=== PATIENT | male | born 1950 | race Caucasian/White ===

== ENCOUNTER 2017-06-06 11:31 | Emergency (ER) | payer MEDICARE ==
[~2017-06-06] VITALS: Ht 172.7 cm; Wt 106.1 kg
[2017-06-06] MEDS ORDERED: AMBIEN10 MG PO (11:48)
[2017-06-06] MEDS ORDERED: CYCLOBENZAPRINE5 MG PO (11:49)
[2017-06-06] MEDS ORDERED: PROPANOLOL PO (11:51)
[2017-06-06] MEDS ORDERED: ALTOPREV40 MG PO (11:52)
[2017-06-06] MEDS ORDERED: NORVASC5 MG PO (11:52)
[2017-06-06] MEDS ORDERED: ATIVAN1 MG PO (11:53)
[2017-06-06] MEDS ORDERED: PRILOSEC OTC20 MG PO (11:53)
[2017-06-06] MEDS ORDERED: MICARDIS HCT 41 EACH (11:53)
[2017-06-06] MEDS ORDERED: GABAPENTIN300 MG PO (11:54)
[2017-06-06] MEDS ORDERED: ACIDOPHILUS1 EACH PO (11:54)
[2017-06-06] MEDS ORDERED: ESTER-C 1,0001 EACH PO (11:54)
[2017-06-06] MEDS ORDERED: SUDAFED 12 HOU120 MG PO (11:55)
[2017-06-06] MEDS ORDERED: FISH OIL 1,0001 EAC2 NG (11:55)
[2017-06-06] MEDS ORDERED: ASPIRIN81 MG PO (11:56)
[2017-06-06] MEDS ORDERED: MULTIVITAMINS1 EAC7 PO (11:56)
[2017-06-06] MEDS ORDERED: [UNRECOGNIZED DRUG - OTHER] (11:57)
--- NOTE | 2017-06-06 18:30 | EKG ---
[facility] [address] [facility] [place] [address] Signed Normal sinus rhythm Normal ECG No previous ECGs available Confirmed by KARLA SPRINGER MD ([id number]) on 06/06/2017 6:30:35 PM Electronically Signed By: KARLA SPRINGER MD 06/06/17 1830 PATIENT NAME: DELORES IVERSON Electrocardiogram DATE OF : 52 PHYSICIAN: KRALA SPRINGER MD REPORT #: [id number] REPORT IS CONFIDENTIAL AND NOT TO BE RELEASED WITHOUT AUTHORIZATION
== END 2017-06-06 13:31 | disposition home or self-care (01) ==
LOC: ED 11:31
DX: B34.9 Viral infection, unspecified (principal); I10 Essential (primary) hypertension; Z87.891 Personal history of nicotine dependence; Z90.49 Acquired absence of other specified parts of digestive tract; Z88.0 Allergy status to penicillin; Z88.5 Allergy status to narcotic agent; Z79.899 Other long term (current) drug therapy; Z88.2 Allergy status to sulfonamides; Z79.891 Long term (current) use of opiate analgesic
CPT/HCPCS: 71020; 80053; 81001; 85025; 93005; 93010; 99283

== ENCOUNTER 2017-10-21 08:47 | Inpatient (IN) | payer MEDICARE ==
[~2017-10-21] VITALS: Ht 172.7 cm; Wt 96.7 kg
[~2017-10-21 08:47] MED LIST: ACIDOPHILUS1 EACH PO; ALTOPREV40 MG PO; AMBIEN10 MG PO; ASPIRIN81 MG PO; ATIVAN1 MG PO; CYCLOBENZAPRINE5 MG PO; ESTER-C 1,0001 EACH PO; FISH OIL 1,0001 EAC2 NG; GABAPENTIN300 MG PO; MICARDIS HCT 41 EACH; MULTIVITAMINS1 EAC7 PO; NORVASC5 MG PO; PRILOSEC OTC20 MG PO; PROPANOLOL PO; SUDAFED 12 HOU120 MG PO; [UNRECOGNIZED DRUG - OTHER]
--- NOTE | 2017-10-21 14:32 | NUR ---
PT ADMITTED FROM ED WITH GI BLEED UPPER. FAMILY AT BEDSIDE, ALL QUESTIONS ANSWERED AT THIS TIME. PT IS NPO AT THIS TIME. UNIT 1 OF 2 RUNNING AT THIS TIME,
--- NOTE | 2017-10-21 14:47 | NUR ---
PROTONIX DRIP STARTED AT THIS TIME. PT IN BED RESTING COMFORTABLE AT THIS TIME. LOTS OF FAMILY PRESENT AT THIS TIME, DR LEON IN THE UNIT AT THIS TIME TO SEE THE PATIENT.
--- NOTE | 2017-10-21 15:37 | NUR ---
PT C/O PAIN IN HIS NECK AND THE TIP OF HIS PENIS, MEDICATED WITH 25MCG FENTAYNL AT THIS TIME.
--- NOTE | 2017-10-21 15:48 | NUR ---
MARJORIE MOLINA TALKING WITH PT AND FAMILY AT THIS TIME. UNIT OF PRBC #2 INFUSING WELL. LR WITH STRAIGHT TUBING RUNNING AT THIS TIME, THE BLOOD WILL CONTIOUE TO RUN WHILE IN THE OR. OR STAFF AREA OF ALL INFUSING FULIDS AT THIS TIME.
--- NOTE | 2017-10-21 15:55 | NUR ---
pt to the or at this time. pt was able to stand and transfer himself to the streacher. complete line change done also at this time/
--- NOTE | 2017-10-21 16:31 | NUR ---
10/21/17 1631 Darlyn Dumont 1616 - PT ARRIVED TO PACU. MAINTAINING OWN AIRWAY
--- NOTE | 2017-10-21 17:15 | NUR ---
PT CONTIOUED TO C/O THE MAR CATHETER, NEW ORDER RECEIVED TO DC'D CATHETER AT THIS TIME. PT SABRA THIS WELL AND THEN UP TO THE BEDSIDE TO TRY TO VOID AT THIS TIME ALSO, SCANT AMOUNT NOTED AT THIS TIME.
--- NOTE | 2017-10-21 17:45 | NUR ---
PT IS RESTING COMFORTABLE IN BED AT THIS TIME, HE IS LESS RESTLESS NOW THAT THE CATHETER HAS BEEN REMOVED.
--- NOTE | 2017-10-21 18:13 | NUR ---
PT HAS VOIDED AT THIS TIME, 100MLS OF YELLOW IN COLOR URINE.
--- NOTE | 2017-10-21 18:41 | NUR ---
PLATLETS STARTED AT THIS TIME. PT TRYING TO SLEEP AWAKENS WHEN STAFF TAKE TEMP.
--- NOTE | 2017-10-21 18:56 | NUR ---
PLATLETTS COMPLETED AT THIS TIME. PT IS TRYING TO REST. AT BEDSIDE.
--- NOTE | 2017-10-21 19:12 | NUR ---
PT REMAINS NPO WITH ICE CHIPS AND OR HARD CANDY/GUM. PT IS DOING WELL WITH SITTING AT THE SIDE OF THE BED TO VOID. HE DOES C/O BURING WITH VOIDING. URINE DOES APPEAR TO BE YELLOW IN COLOR. REPORT GIVEN TO GLUE SPECIALTY SUPERVISOR ALL QUESTIONS ANSWERED AT THIS TIME. REMAINS AT THE BEDSIDE.
--- NOTE | 2017-10-21 20:57 | NUR ---
IN TO ASSESS PT AT 1930. PT ASLEEP. AT BEDSIDE. AWOKE APPROXIMATELY 30-45MIN LATER. PT VOIDED 175ML TO URINAL, CONCENTRATED. DENIES DIZZINESS. REPORTS NAUSEA. 4MG ZOFRAN GIVEN IV. PAIN IN UPPER QUADRANTS OF ABD, SHARP. PT NOT WEARING CPAP AT THIS TIME D/T NAUSEA. 1MG ATIVAN GIVEN PER PT REQUEST FOR SLEEP. NO FURTHER NEEDS. REMAINS ON MONITOR.
--- NOTE | 2017-10-21 22:08 | NUR ---
ASSISTED PT TO SIT AT BEDSIDE TO VOID. PT VERY WEAK. HR UP TO 126 WHEN SITTING. INSTRUCTED PT TO CALL FOR ALL ASSISTANCE. VERBALIZED UNDERSTANDING.
--- NOTE | 2017-10-22 01:54 | NUR ---
PT INC SMALL LIQUID BLACK STOOL IN BED. UP TO BSC TO HAVE 500ML BLACK LIQUID STOOL. DENIES DIZZINESS, SOB, PAIN. BP TAKEN. LINENS CHANGED.
--- NOTE | 2017-10-22 06:06 | NUR ---
PT UP TO BSC TO HAVE LIQUID THICK BLACK STOOL - 200ML. PT VERY WEAK AND SOB WITH EXERTION. HR UP TO 120'S WITH MOVEMENT. VOIDED 250ML CONCENTRATED URINE. BACK TO BED WITH 1 PERSON ASSIST. HR 90'S WHEN AT REST. NO NEEDS.
--- NOTE | 2017-10-22 06:25 | OR ---
[facility] [address] [place], [place] [address] Signed DATE OF OPERATION: 10/21/2017 SURGEON: Beth Leon MD PREOPERATIVE DIAGNOSES: 1. Cardiac/gastric mass. 2. Melena. 3. Weight loss. 4. Anemia. 5. Distal esophageal dysphagia. 6. History of hiatal hernia. 7. Fatigue and weakness. POSTOPERATIVE DIAGNOSIS: Cardiac mass with clotted and congealed blood. PROCEDURE: EGD and CLOtest with biopsies of the cardiac mass/GE junction. ESTIMATED BLOOD LOSS: None. INDICATIONS: Jacob is a 67-year-old gentleman, who said he has had acid reflux claiming back in his 20s. He has been taking Prilosec since he was in his 20s. The last 5-1/2 to 6 months, he has had increasing distal esophageal dysphagia particularly to solid foods. Often, he has to regurgitate those foods. He has lost about 35-40 pounds and has been feeling progressively more weak and fatigued. Today, he was having trouble just walking through the house, so his family brought him to the emergency room for evaluation. In the emergency room, he really does not have any pain or a palpable mass in the upper abdomen and his hemoglobin started at 11. With hydration, it quickly went to 9.2. Consequently, he is on his second unit of blood per our Internal Medicine service. Initially, his lactic acid was high at 3.9, it is down to 1.4 and his urine specific gravity was high at 1.052. However, his BNP was normal at 7. Liver function tests were all fine. Albumin is good at 3.9. His BUN is up a little bit of 40 and creatinine is 1.13. He did receive a CT scan of the chest, abdomen, and pelvis and sure enough, he does have a mass at the cardia, probably 2.8 x 3 cm. Also, has a 1.2 cm gastrohepatic lymph node. Given those findings, he had been admitted to the ICU to our Internal Medicine service. I have been asked to see him as a general surgeon cardiac catheterization technician for upper endoscopy. I met with Jacob and his family and we reviewed the above findings. I discussed with him an upper endoscopy along with its risks including but not limited to gas bloating, crampy abdominal pain, bleeding, perforation requiring surgery, and missed diagnosis. We also discussed the need for IV conscious sedation. Given his current situation, his sleep apnea, his very heavy full thick neck, we asked that an anesthesia provider help us with increased monitoring sedation with propofol. He had expressed understanding and wished to proceed. Electronically Signed By: BETH LEON MD 10/22/17 0625 PATIENT NAME: JACOB IVERSON OPERATIVE REPORT DATE OF : 52 PHYSICIAN: BETH LEON MD REPORT #: [id number] REPORT IS CONFIDENTIAL AND NOT TO BE RELEASED WITHOUT AUTHORIZATION [address] [address] Signed PROCEDURE NOTE: Jacob was taken down to our endoscopy suite and placed in the supine semi-recumbent position. He was given IV sedation with propofol per our nurse loss prevention guard. A bite block was utilized for the case. The adult gastroscope was introduced and advanced under direct visualization of camera down his esophagus. We could see the nodular mucosa at the GE junction, and it took just a minute and a slight bit of pressure to get the gastroscope through the area suggesting it is strictured. This opened up into the stomach quite nicely. Of course, there was some old blood in the stomach. We went out into the duodenum without difficulty. The duodenum and pyloric channel were unremarkable. The antrum was unremarkable. We went and took a single biopsy for CLOtest. Upon retroflexion of scope, we could see a large congealed clotted mass of blood at the cardia. It was obscuring the area of the mass in the cardia. We spent some time trying to irrigate and suction that out with no success. The scope was withdrawn up gently through the area of the GE junction. Once we got above the congealed blood and I could see, we took a couple of biopsies of that nodular area quite concerning for cancer. Above that, the esophagus, the middle and the upper esophagus were unremarkable. After this, the gas was suctioned out and the gastroscope removed. Jacob tolerated the procedure quite well. RECOMMENDATIONS: Jacob will be returned to the ICU with respect to the above and I will talk with his family and the hospitalist. Beth Leon MD ALB/MODL /[id number] cc: Jose Leiva DO Electronically Signed By: BETH LEON MD 10/22/17 0625 PATIENT NAME: JACOB IVERSON OPERATIVE REPORT DATE OF : 52 PHYSICIAN: BETH LEON MD REPORT #: [id number] REPORT IS CONFIDENTIAL AND NOT TO BE RELEASED WITHOUT AUTHORIZATION [facility] [address] [place], [place] [address] Signed Beth Leon MD Electronically Signed By: BETH LEON MD 10/22/17 0625 PATIENT NAME: JACOB IVERSON REX OPERATIVE REPORT DATE OF : 52 PHYSICIAN: BETH LEON MD REPORT #: [id number] REPORT IS CONFIDENTIAL AND NOT TO BE RELEASED WITHOUT AUTHORIZATION
--- NOTE | 2017-10-22 06:25 | CONS ---
[facility] [address] [place], [place] [address] Signed DATE OF CONSULTATION: 10/21/2017 CHIEF COMPLAINT: Distal esophageal dysphagia. HISTORY OF PRESENT ILLNESS: Jacob is a 67-year-old gentleman who started taking Prilosec in his 20s for acid reflux. The last 5-1/2 to 6 months, he has had increasing distal esophageal dysphagia, particularly solid foods. He has to regurgitate a lot of that food. He has been feeling progressively weaker and more lightheaded. He was having trouble getting through the house today, so his family brought him to our local emergency room. In the emergency room, he was a little hypotensive and tachycardic with a lactic acid at 3.9, his initial hemoglobin was 11.0. He was given IV fluids, and it has drifted down to 9.2, consequently he has been receiving a couple of units of blood from our internal medicine service. Also, his urine specific gravity was high at 1.052, although his BNP was fine at 7. He, therefore, underwent a CT scan of his chest, abdomen, and pelvis. There was no evidence of any pulmonary emboli. He has mild COPD, but he quit smoking years ago. He does have a small hiatal hernia and that he has got a mass at the cardia of the stomach and in the supra celiac area around 2.8 x 3.0 cm. There was also 1.2 cm gastrohepatic lymph node. Given those findings, he was admitted to our internal medicine service. I have been asked to see him as a general surgeon on-call for consideration of upper endoscopy. PAST MEDICAL HISTORY: Small hiatal hernia, mild COPD, diverticulosis, benign bilateral renal cysts, BPH, hard of hearing, hypertension, and hypercholesterolemia. PAST SURGICAL HISTORY: Open cholecystectomy, open appendectomy, various hernias including a periumbilical incisional hernia with mesh, and tonsils. SOCIAL HISTORY: Quit smoking. He does not drink. 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 He is to [place] at [phone]. Dr. Jose Leiva is his primary care provider. They prefer to [facility]. FAMILY HISTORY: Not reviewed today. REVIEW OF SYSTEMS: Reviewed 10 systems with Jacob and really nothing new to add. ALLERGIES: Penicillin, codeine, and primidone. MEDICATIONS: 1. Zolpidem. 2. Flexeril. 3. Propranolol. 4. Norvasc. 5. Lovastatin. 6. Ativan. Electronically Signed By: BETH LEON MD 10/22/17 0625 PATIENT NAME: JACOB IVERSON CONSULTATION DATE OF : 52 PHYSICIAN: BETH LEON MD REPORT #: [id number] REPORT IS CONFIDENTIAL AND NOT TO BE RELEASED WITHOUT AUTHORIZATION [facility] [address] [place] [id number] Signed 7. Micardis. 8. Hydrochlorothiazide. 9. Prilosec. 10. Vitamin C. 11. Gabapentin. 12. Sudafed. 13. Fish oil. 14. Multivitamin. 15. Aspirin. 16. Armstrong. PHYSICAL EXAMINATION: VITAL SIGNS: Blood pressure is 121/83, heart rate 107, respiratory rate 10, temperature is 98.3, and is 100% on 2 L. He is 5 feet and 8 inches and 96 kg. GENERAL: Jacob is a 67-year-old gentleman lying supine in his ICU bed. His family is at the bedside. He is alert, awake, and interactive. He is actually a pretty good historian. He told me he is down from about 30 pounds in the last few months. He is a little pale, but he is not diaphoretic at this point LUNGS: Clear to auscultation. HEART: A little tachycardic. ABDOMEN: Soft and flat. I really cannot appreciate any pain or mass in the epigastric area. LABORATORY DATA: His white blood cell count is 11.3, his hemoglobin was 11, it is down to 9.2, neutrophils are 70. His BUN is 40 and creatinine is 1.13. Lactic acid was 3.9, it is down to 1.4. His urine specific gravity was high at 1.052. Liver function tests are negative. His BNP was 7. Albumin is 3.9. RADIOGRAPHIC STUDIES: CT scan of the chest, abdomen, and pelvis is reviewed, the images in the written report. He does have some mild COPD, a small hiatal hernia, and there was a supraceliac mass coming from the cardia about 2.8 x 3 cm and there is a 1.2 cm gastrohepatic lymph node. ASSESSMENT AND PLAN: Jacob is a 67-year-old gentleman who appears to have a mass in the cardiac care of the stomach. He also was anemic and he is describing some melena as well. All consistent with his upper gastrointestinal bleed. I explained all these findings to Jacob and his family. He is undergoing resuscitation, now our crew is here, we are going to take him down to our endoscopy suite for an upper endoscopy and hopefully some biopsies and pictures. I have explained upper endoscopy to him. He understands there is risk including, but not limited to gas bloating, crampy abdominal pain, bleeding, perforation requiring surgery, and missed diagnosis, he expressed understanding and wishes to Electronically Signed By: BETH LEON MD 10/22/17 0625 PATIENT NAME: JACOB IVERSON CONSULTATION DATE OF : 52 PHYSICIAN: BETH LEON MD REPORT #: [id number] REPORT IS CONFIDENTIAL AND NOT TO BE RELEASED WITHOUT AUTHORIZATION [address] [address] Signed proceed. MD BURAK Ge/TONYL /[id number] cc: MD Jose Ge DO Electronically Signed By: BETH LEON MD 10/22/17 0625 PATIENT NAME: JACOB IVERSON CONSULTATION DATE OF : 52 PHYSICIAN: BETH LEON MD REPORT #: [id number] REPORT IS CONFIDENTIAL AND NOT TO BE RELEASED WITHOUT AUTHORIZATION
--- NOTE | 2017-10-22 09:35 | NUR ---
PT GIVEN SO LIQUIDS TO DRINK THIS AM. PT IS ABLE TO TAKE SMALL SIPS AT A TIME WITH NO NAUSEA NOTED. PT IS ALSO ABLE TO REST INBETWEEN VISITORS THIS AM.
--- NOTE | 2017-10-22 10:11 | NUR ---
PT SLEEPING AT THIS TIME, PT ABLE TO SLEEP THROUGH STAFF BEING IN THE ROOM AND CHANGING IV FLUIDS, EMPTING URINALS. PT URINE APPERS TO BE CONTRANTED AT THIS TIME.
--- NOTE | 2017-10-22 11:00 | NUR ---
PT TURNED TO HIS RIGHT SIDE. PT HELD INPLACE VIA WEDGE THAT HIS FAMILY SUPPLIES.
--- NOTE | 2017-10-22 11:45 | NUR ---
PT GIVEN BATH AND LINE CHANGE THIS AM. PT SABRA-WELL CLEAN PULL-UP PLACED. PT DENIES BURNING OR PAIN WITH VOIDING TODAY. DR SPRINGER INTO SEE PT THIS AM NEW ORDERS RECEIVED AT THIS TIME.
--- NOTE | 2017-10-22 13:31 | NUR ---
PT RESTING, DIDNOT WANT TO DISTURB. VISITED WITH HIS AND DAUGHTER. THEY BOTH ARE TRYING TO KEEP THEIR EMOTIONS IN CHECK, AND NOT LOOK TOO FAR DOWN THE ROAD. PRAYED WITH THEM. WILL CONTINUE TO FOLLOW NEEDED
--- NOTE | 2017-10-22 13:31 | NUR ---
PT REMAINS IN BED AND WATCHING TV, DENIES ANY C/O'S AT THIS TIME. CURRENTLY DRINKING ENSURE. PTS REMAINS AT THE BEDSIDE.
--- NOTE | 2017-10-22 14:38 | NUR ---
PT DRANK ALMOST ALL OF THE ENSURE AT THIS TIME. APEARS THAT HE IS TRYING TO SLEEP, COVERS OVER HIS HEAD. REMAINS AT BEDSIDE.
--- NOTE | 2017-10-22 14:59 | NUR ---
PT LAYING ON SIDE, WITH HIS QUILT ON HIM. HIS JOHN BY HIS SIDE. PT RESPONDED TO MY PRESENCE, SHOOK MY HAND AND SAID HE WAS HAVING A GREAT TIME! STILL HAS HIS SENSE OF HUMOR. PRAYED WITH PT, WILL CONTINUE TO FOLLOW
--- NOTE | 2017-10-22 16:06 | NUR ---
REPORTED OFF TO MJ BILLY ATT HIS TIME ALL QUESTIONS ANSWERED.
--- NOTE | 2017-10-22 16:48 | NUR ---
Patient resting in bed with eyes closed, lights turned down. Placed do not disturb sign on door.
--- NOTE | 2017-10-22 17:34 | NUR ---
Patient stands at bedside, voids 150 mls to urinal. Patient tolerates well, stands without difficulty and denies dizziness. Patient back to bed, call light in reach. at bedside.
--- NOTE | 2017-10-22 18:35 | NUR ---
ZOFRAN 4 MG IV GIVEN FOR NAUSEA.
--- NOTE | 2017-10-22 22:33 | EKG ---
[facility] [address] [place] [address] Signed Sinus tachycardia Left bundle branch block Abnormal ECG When compared with ECG of 06-JUN-2017 11:49, Vent. rate has increased BY 40 BPM Left bundle branch block is now present Confirmed by KARLA SPRINGER MD ([id number]) on 10/22/2017 10:33:14 PM Electronically Signed By: KARLA SPRINGER MD 10/22/17 2233 PATIENT NAME: DELORES IVERSON REX Electrocardiogram DATE OF : 52 PHYSICIAN: KARLA SPRINGER MD REPORT #: [id number] REPORT IS CONFIDENTIAL AND NOT TO BE RELEASED WITHOUT AUTHORIZATION
--- NOTE | 2017-10-23 01:12 | NUR ---
PT CALLED ME IN TO ROOM TO EXPRESS 'I JUST DON'T FEEL WELL'. PT UNABLE TO DESCRIBE THE FEELING OTHER THAN, NOT FEELING WELL OVER HIS ENTIRE BODY. VS TAKEN, PT REPORTED MILD NAUSEA, 4MG ZOFRAN GIVEN IV. ABD PAIN IN UPPER QUADRANTS 3/10 'TENDER'. DR SPRINGER CALLED TO UPDATE. PT GIVEN 500MG TYLENOL PO.
--- NOTE | 2017-10-23 03:27 | NUR ---
PT REPORTS FEELING 'A BIT' BETTER, WAS ABLE TO FALL ASLEEP. UP TO STAND AT BEDSIDE TO VOID TO URINAL.
--- NOTE | 2017-10-23 10:15 | NUR ---
PT AWAKE THIS A.M. AND VOIDED 500 MLS CLEAR YELLOW URINE WHILE STANDING AT BEDSIDE. PT ATE APPROX 50% OF CLEAR LIQ DIET, FAMILY IN ROOM. PT C/O OF SLIGHT DISCOMFORT IN EPIGASTRIC AREA. DR. SPRINGER AWARE AND ORDER FOR GI COCKTAIL ORDERED.
--- NOTE | 2017-10-23 11:56 | NUR ---
DR. SPRINGER IN TO ASSESS PT AND TALK TO PT AND FAMILY CONCERNING PLAN OF CARE.
--- NOTE | 2017-10-23 14:42 | NUR ---
PT FEELING BETTER, DAUGHTER TOLD ME THEY ARE WAITING FOR THE LAB REPORT CONFIRMING WHAT THEY EXPECT-CANCER AND WHAT KIND. LOTS OF FAMILY BY, HAD PRAYER WITH FAMILY, KEEPING CLOSE WATCH. WILL CONTINUE TO FOLLOW
--- NOTE | 2017-10-23 14:43 | NUR ---
PT TRANSFERED FROM CCU TO ROOM 113 VIA RECLINER CHAIR. PT ON RA, DENIED PAIN, DENIED NAUSEA. HAS D5LR INFUSING AT 75 ML/HR. PER DR. SPRINGER, SALINE LOCK AFTER CURRENT BAG OF FLUIDS.
--- NOTE | 2017-10-23 15:04 | NUR ---
PT TRANSFERRED TO ROOM 113 VIA VANI CHAIR WITH FAMILY MEMBERS AT HIS SIDE.
--- NOTE | 2017-10-23 15:16 | NUR ---
PATIENT GOT HERE AT 1440 HE WAS SITTING IN THE CHAIR. GOT VITALS. NOW HE IS LAYING IN BED WATCHING TV.
--- NOTE | 2017-10-23 16:58 | NUR ---
PT UP TO BATHROOM TO VOID WITH STANDBY ASSIST. VOIDED 300 CC CLEAR YELLOW URINE. BACK TO BED. PROVIDED WITH EXTRA PILLOW PER PT REQUEST. PT DENIED OTHER NEEDS.
--- NOTE | 2017-10-23 17:59 | NUR ---
PT TRANSFERED TO FLOOR FROM CCU THIS SHIFT. PT ADMITTED FOR GI BLEED, PER CCU REPORT PT HAD NO BM THIS SHIFT, LAST BM YESTERDAY, DARK BLOODY STOOL. HAS HAD NO BMS SINCE TRANSFER TO FLOOR. PT ON SOFT DIET, TOLERATING WELL THUS FAR. URINE OUTPUT QUANTITY SUFFICIENT. NO C/O PAIN, NO C/O NAUSEA. TELE # 7 DUE TO GI BLEED, NSR. PT UP WITH STANDBY ASSIST. PT HAS TREMORS TO HANDS, REPORTS THAT THIS IS CHRONIC FOR HIM.
--- NOTE | 2017-10-23 19:15 | NUR ---
BEDSIDE REPORT RECEIVED FROM OFFGOING RN. PT LYING IN BED AWAKE AND WATCHING TV. PT DENIES NEEDS AT THIS TIME, CALL LIGHT WITHIN REACH.
--- NOTE | 2017-10-23 19:45 | NUR ---
PATIENT CALLED TO USE THE BATHROOM. STANDBY ASSISTED TO AND BACK TO BED. SDCS BACK ON. CALL BUTTON WITHIN REACH.
--- NOTE | 2017-10-23 21:10 | NUR ---
PT ASSESSMENT COMPLETE. PT RATES "DISCOMOFORT" TO UPPER ABD. PT DENIES PRN MEDICATION FOR THIS, STATES THAT HE WILL SEE IF IT RESOLVES ON ITS OWN. PT UP TO USE BATHROOM WITH SBA. PT DENIES FURTHER NEEDS AT THIS TIME. CALL LIGHT WITHIN REACH.
--- NOTE | 2017-10-23 23:15 | NUR ---
PT UTILIZES CALL LIGHT, REPORTS THAT DISCOMFORT TO UPPER ABD CONTINUES. HE DESCRIBES DISCOMFORT A "HARD BALL". REQUESTS PRN. GI COCKTAIL ADMINISTERED. PT DENIES FURTHER NEEDS AT THIS TIME. CALL LIGHT WITHIN REACH.
--- NOTE | 2017-10-24 00:08 | NUR ---
PATIENT IS LYING IN BED AWAKE USING CELPHONE.
--- NOTE | 2017-10-24 02:07 | NUR ---
PT ASSESSMENT COMPLETE. PT REPORTS DISCOMFORT TO ABD IS MOSTLY RESOLVED. STATES THAT HE IS HAVING ACHING/ARTHRITIC PAIN TO NECK AND SHOULDERS. REPORTS THAT THIS IS A CHRONIC ISSUE. PT REQUESTING PRN TYLENOL, ADMINISTERED. PT DENIES FURTHER NEEDS AT THIS TIME. CALL LIGHT WITHIN PT'S REACH.
--- NOTE | 2017-10-24 05:54 | NUR ---
PT AWAKE MOST OF THE NIGHT. GI COCKTAIL X 1 FOR ABD DISCOMFORT, TYLENOL X1 FOR CHRONIC NECK/SHOULDER PAIN. NO NAUSEA, NO SOB. TELE # 7, SR. SOFT DIET. UO QS. IV SL. SBA.
--- NOTE | 2017-10-24 07:40 | NUR ---
pt set up for a shower and got in after he finished breakfast. Breakfast tray removed. No other requests at this time.
--- NOTE | 2017-10-24 08:20 | NUR ---
PATIENT FINISHED 100 PERCENT OF SOFT BREAKFAST. IN ROOM. ASSISTING IN SHOWER. ASSESSMENT COMPLETE. PATIENT STATING HE WOULD LIKE A TYLENOL AFTER SHOWER. NO SWALLOWING ISSUES WITH BREAKFAST. ALL ITEMS SOFT.
--- NOTE | 2017-10-24 08:45 | NUR ---
PATIENT GIVEN MORNING MEDICATION. REQUESTING EYE DROPS FOR DRY EYES.
--- NOTE | 2017-10-24 10:15 | NUR ---
pts vitals taken at this time.
--- NOTE | 2017-10-24 10:53 | NUR ---
patient sleeping. in room.
[2017-10-24] MEDS ORDERED: PRILOSEC OTC20 MG PO (11:35)
--- NOTE | 2017-10-24 11:36 | NUR ---
rounding with dr. back in room. patients family in attendance. discharge plan discussed in room. plan for follow up with dr. henley, dr. gabriel, and dr. simon.
--- NOTE | 2017-10-24 12:00 | NUR ---
PATIENT GIVEN DISCHARGE INSTRUCTIONS. CALLS FOR FOLLOW UP APPOINTMENTS MADE.
--- NOTE | 2017-10-24 13:04 | NUR ---
PT GOT NEWS OF CANCER. CONTACTS HAVE BEEN MADE TO GO [facility]RU [facility] [place] FOR TREATMENT. I VISITED WITH JOHN HIS -SHE SAID SHE IS NOT READY FOR HIM TO GO. HE IS GOING TO FIGHT THIS THING. PT WILL BE DC'D TODAY, HE WAS EATING LUNCH-POTATOES AND GRAVY! I SAID HELLO AND LET HIM EAT WHILE IT WAS HOT. I WILL FOLLOW NEEDED
== END 2017-10-24 12:45 | disposition home or self-care (01) | DRG 375 ==
LOC: ED 08:47 → CCU 13:28 → MS 10-23 14:40
PROVIDERS: Colon & Rectal Surgery; ADMIT Internal Medicine
PROC: 0DB48ZX Excision of Esophagogastric Junction, Via Natural or Artificial Opening Endoscopic, Diagnostic (ICD-10-PCS; 2017-10-21)
PROC: 0DB68ZX Excision of Stomach, Via Natural or Artificial Opening Endoscopic, Diagnostic (ICD-10-PCS; principal; 2017-10-21 16:00)
PROC: 30233N1 Transfusion of Nonautologous Red Blood Cells into Peripheral Vein, Percutaneous Approach (ICD-10-PCS; 2017-10-22)
DX: D49.0 Neoplasm of unspecified behavior of digestive system (principal); D62 Acute posthemorrhagic anemia; K92.2 Gastrointestinal hemorrhage, unspecified; E87.2 Acidosis; I10 Essential (primary) hypertension; G25.0 Essential tremor; E78.5 Hyperlipidemia, unspecified; G89.4 Chronic pain syndrome; F41.9 Anxiety disorder, unspecified; G47.00 Insomnia, unspecified
CPT/HCPCS: 00740; 36415; 36430; 71260; 74177; 80048; 80053; 81001; 82378; 83605; 83735; 83880; 84100; 84484; 85018; 85025; 85027; 85610; 86677; 86850; 86900; 86901; 86922; 86927; 87040; 93005; 93010; J0330; J2060; J2405; J2704; J3010; J7030; J7120; P9016; P9035; Q9967

== ENCOUNTER 2019-11-23 15:56 | Emergency (ER) | payer MEDICARE, OTHER ==
[~2019-11-23] VITALS: Ht 172.7 cm; Wt 61.8 kg
--- OUTSIDE RECORDS SUMMARY | ~2019-11-23 | XMS | Encounter Summary ---
Demographics + + + | Address | [address] | | | [place] [address] | + + + | Home Phone | | + + + | Preferred Language | Unknown | + + + | Marital Status | | + + + | Gnosticist Affiliation | CAT | + + + | Race | White | + + + | Ethnic Group | Not or | + + + Author + + + | Author | [facility] | + + + | Organization | [facility] | + + + | Address | Unknown | + + + | Phone | Unavailable | + + + Support + + +---------+ + | Name | Relationship | Address | Phone | + + +---------+ + | Mauricio Sapp | ECON | Unknown | | + + +---------+ + | Flower Sapp | ECON | Unknown | | + + +---------+ + Care Team Providers + +------+ + | Care News Department Intern Name | Role | Phone | + +------+ + | Christos Olivarez MD | PCP | | + +------+ + Reason for Visit Office Visit - E/M Services (Routine) +--------+---------+ + + + + | Status | Reason | Specialty | Diagnoses / | Referred By | Referred To | | | | | Procedures | Contact | Contact | +--------+---------+ + + + + | Closed | Other | Hematology & | Diagnoses | Agusto, | Hem Faculty | | | | Oncology | Malignant | Marie Ramirez MD | [address] | | | | | neoplasm of | [address] | [address] | | | | | lower third | [address] | Mailcode: | | | | | of esophagus | [address] | [facility] | | | | | Procedures | [place], [place] | Health and | | | | | [place] | [address] | Healing, | | | | | SERVICES | Phone: | [address] | | | | | PROVIDED | [phone] | [place], [place] | | | | | PART OF [place] | Fax: | [address] | | | | | INJ | [phone] | Phone: | | | | | NIVOLUMAB 1 | | [phone] | | | | | [place] EST | | Fax: | | | | | PATIENT | | [phone] | | | | | LEVEL V | | | | | | | Study IRB: | | | | | | | [id number] Study | | | | | | | Title: A | | | | | | | Randomized, | | | | | | | Multicenter, | | | | | | | Double | | | | | | | Blind, Phase | | | | | | | III Study | | | | | | | of Adjuvant | | | | | | | Nivolumab or | | | | | | | Placebo in | | | | | | | Subjects | | | | | | | with | | | | | | | Resected | | | | | | | Lower | | | | | | | Esophageal, | | | | | | | or | | | | | | | Gastroesopha | | | | | | | geal | | | | | | | Junction | | | | | | | Cancer | | | +--------+---------+ + + + + Encounter Details +--------+---------+ + + + | Date | Type | Department | Care Team | Description | +--------+---------+ + + + | 11/12/ | Office | Hematology/Medical | Yg Yun | Malignant neoplasm | | 2018 | Visit | [facility]cology at [place] | POOJA Leger [address] | of lower third of | | | | [facility] | [address] | esophagus (HCC) | | | | [address] | [place], [place] | (Primary Dx); | | | | Mailcode: [place] | [address] | Clinical trial exam | | | | [facility] | [phone] | | | | | [place] [address] | | | | | | [place], [place] | | | | | | [address] | | | | | | [phone] | | | +--------+---------+ + + + Social History + +-------+ +--------+ + | Tobacco Use | Types | Packs/Day | Years | Date | | | | | Used | | + +-------+ +--------+ + | Former Smoker | | | | Quit: 12/15/1989 | + +-------+ +--------+ + + +------+---+ + | Smokeless Tobacco: | Chew | | Quit: | | Former User | | | 01/17/20 | | | | | 18 | + +------+---+ + + + +---------+ + | Alcohol Use | Drinks/Week | oz/Week | Comments | + + +---------+ + | Yes | 1 Glasses of wine | 1.0 | | + + +---------+ + + + + | Sex Assigned at | Date Recorded | | | | + + + | Not on file | | + + + + + + + | Job Start Date | Occupation | Industry | + + + + | Not on file | Not on file | Not on file | + + + + + + + + | Travel History | Travel Start | Travel End | + + + + + + | No recent travel history available. | + + documented as of this encounter Functional Status + + + + | Functional Status | Response | Date of Assessment | + + + + | Because of a physical, mental, or emotional | No | 05/15/2018 | | condition, do you have serious difficulty | | | | doing errands alone such as visiting the | | | | doctor? | | | + + + + + + + + | Cognitive Status | Response | Date of Assessment | + + + + | Because of a physical, mental, or emotional | No | 05/15/2018 | | condition, do you have serious difficulty | | | | concentrating, remembering, or making | | | | decisions? (5 years old or older) | | | + + + + documented as of this encounter Progress Notes Ad Tanner RN - 11/12/2018 1:50 PM PSTFormatting of this note might be different from daja landon original. Research RN Note: Mr. Jacob Sapp presents today for C1D1 nivolumab vs placebo after signing consent to particip ate in [id number]: A Randomized, Multicenter, Double Blind, Phase III Study of Adjuvant Nivol umab or Placebo in Subjects with Resected Lower Esophageal, or Gastroesophageal Junction Can cer (CheckMate 577: CHECKpoint pathway and nivoluMab clinical Trial Evaluation 577). Seen today by Yun BARRIENTOS and myself. Looks well. Labs OK to treat. Finished antibi otics for diverticulitis. I presented Mr. Sapp with the recently revised consent form for this study, [id number]: A R andomized, Multicenter, Double Blind, Phase III Study of Adjuvant Nivolumab or Placebo in [place] bjects with Resected Lower Esophageal, or Gastroesophageal Junction Cancer (CheckMate 577: C HECKpoint pathway and nivoluMab clinical Trial Evaluation 577). I explained the changes to t he form based on the track change of [facility] Version 6.0 and the updated risk tables and gave h im the opportunity to ask questions. He verbalized understanding of the new risks and demons trated capacity to consent. Mr. Sapp signed consent today and received a copy of the signed consent for his records. 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 Radiation completed at [facility]. He reports the following medical and surgical history at baseline: Past Medical History: Diagnosis Date Cervical spinal stenosis 1997 Coronary artery disease 2007 diagnosed on angiogram when experienced chest pain - treated with medications, pain attr ibuted to esophageal spasm, never had ID or stent H/O Diverticulosis 1997 Hernia, hiatal, removed with esopageal surgery 05/2018 Hyperlipidemia 2007 LBBB (left bundle branch block) 09/2017 H/O Sleep apnea no longer using CPAP since weight loss and not snoring any more Appendectomy complicated by peritonitis 1961 cholecystectomy 1976 tonsillectomy 1956 He reports the following medications at baseline: Current Outpatient Prescriptions Medication dose indication start stop DULoxetine 30 mg oral capsule,delayed release(DR/EC) 30 mg orally once daily. Depressive sy mptoms/anxiety 05/2018 HYDROcodone-acetaminophen 5-325 mg oral tablet Take 1 tablet by mouth every four hours as n eeded. Pain (neck) 2007 LORazepam 1 mg oral tablet Take 1 mg by mouth as needed Anxiety/sleep 2015 LOVASTATIN ORAL Take 20 mg by mouth once daily in the evening. hyperlipidemia 2011 omeprazole (PRILOSEC) 20 mg oral capsule,delayed release(DR/EC) Take 1 capsule by mouth onc e daily in the morning. GERD prophylaxis 2007 propranolol 60 mg oral tablet Take 0.5 tablets by mouth two times daily. HTN 2002 tamsulosin (FLOMAX) 0.4 mg oral capsule Take 1 capsule by mouth once daily. Urinary retenti on 05/2018 Fish oil 1500mg tab PO daily General health 2007 Trsiha-C 1 tab PO daily General health 2007 Marijuana salve Apply thin layer topically to affected area PRN pain 06/2018 Cesar velasquez oil 1-2 drops PO daily Health support 08/05/18 He reports the following complaints at baseline: Fatigue, grade 1, started 05/2018 Urinary retention, grade 2, started 05/2018 Pain, neck, grade 2 intermittent, started 2009 Depressive symptoms, grade 2, started 05/2018 Insomnia, grade 1, started 05/2018 Anxiety, grade 2 intermittent 05/2018 Hypertension, grade 1 intermittent, started 2002 Constipation, grade 1 intermittent, started 05/2018 New onstudy AEs Adverse event grade Start date End date Gas pains 1 09/26/18 Nausea intermittent 1 10/09/18 Abdominal Pain (LLQ) 1 10/09/18 Anorexia 1 10/09/18 Infections and Infestations- other (Diverticulitis) 2 10/09/18 10/19/18 New On Study Medications Medication dose route frequency indication Start date Stop date Ciprofloxacin 500 mg PO BID Infections and Infestations- other (Diverticulitis) 10/09/18 10/12/18 Metronidazole 500 mg PO TID Infections and Infestations- other (Diverticulitis) 10/09/18 1 12/19/17 Zofran 4 mg PO Q12H PRN Nausea intermittent 10/15/18 Bactrim DS 1 tab PO BID X 10 days Infections and Infestations- other (Diverticulitis) 10/2110/31/18 Yun Faust PA- C - 11/12/2018 1:50 PM PST Oncology Assessment: Cancer Staging Malignant neoplasm of lower third of esophagus (HCC) Staging form: Esophagus - Adenocarcinoma, AJCC 8th Edition - Clinical: No stage assigned - Unsigned - Pathologic: Stage IIIB (pT3, pN2, cM0) - Signed by Marie Liz MD on 07/31/2018 Was diagnosed in 10/2017 after developing dysphagia, melena and weight loss of 20-30 lbs. U nderwent a laparoscopic J-tube placement 12/13/17 and is s/p neoadjuvantchemoradiation w/ c arbo/taxol and XRT to 50Gy which was complete on 01/30/18 - 05/14/[address] Pal and Jules - 05/14/18 Pathology: G. Esophagus and stomach, esophagogastrectomy: ? Residual invasive adenocarcinoma, moderately to poorly differentiated, invasive into adve ntitia, spanning at least 5.0 cm. ? Margins negative for dysplasia or malignancy ? Metastatic carcinoma in four of fourteen lymph nodes (4/14), see comment ? AJCC pathologic stage (8th edition): ypT3 N2 Extensive residual cancer with no evident tumor regression (poor or no response, score 3) - 07/31/2018 [facility] Medical oncology evaluation- offered enrollment on Checkmate 577 trial, Nivo vs. Plac sabrina for adjuvant therapy, consent signed - 08/21/18 CT CAP 1. Since 03/22/2018, postsurgical changes of an esophagectomy with gastric pull-through, and interval removal of the jejunostomy tube. No evidence of recurrent or metastatic disease. 2. Small right-sided pleural effusion. - 09/03/18 Start INV therapy Nivolumab/placebo - 09/17/18 Cycle 2 - 10/01/18 Cycle 3 - 10/15/18 Cycle 4 - 10/28/18 Cycle 5 Plan/ Recommendations: 1. Cancer Staging Malignant neoplasm of lower third of esophagus (HCC) Staging form: Esophagus - Adenocarcinoma, AJCC 8th Edition - Clinical: No stage assigned - Unsigned - Pathologic: Stage IIIB (pT3, pN2, cM0) - Signed by Marie Liz MD on 07/31/2018 - Continue investigational therapy Nivolumab/placebo - stable fatigue. Improved appetite. No diarrhea, mild nausea. - Proceed with Cycle 6 Nivolumab/placebo today, monitor closely for toxicities - RTC per study protocol, due for scans at that time 2. Neck pain - chronic - on vicodin prn with PCP - continue management with his primary care provider given that this is not related to his prior malignancy. 3. High Cholesterol - recommend that he has lipid panel checked at home - may not need meds due to excessive weight loss following his cancer and surgery 4. Diverticulitis: - pt reports extended history of flares, was recently diagnosed by PCP, given 10 day course of cipro/metronidazole, pt self discontinued cipro after 4 days due to side effects, was th en given an additional 10 day course of both antibiotics which he has completed. - no diarrhea, LLQ pain much improved, similar pain pattern to past flares, continue to mon itor for colitis symptoms Interval History: Jacob Sapp returns to clinic today for follow up. Since the last clinic visit, he continues to tolerate treatment well. He reports mild naus ea improved with zofran, no emesis. His diverticulitis flare has resolved, he has completed his antibiotics. No diarrhea. Appetite continues to improve. His LLQ pain has improved. N o abnormal bleeding. No headaches, vision changes, CP, SOB, lower extremity edema, rash, ne w cough. Current Outpatient Prescriptions Medication Sig atorvastatin calcium (ATORVASTATIN ORAL) Take by mouth. ciprofloxacin HCl 500 mg oral tablet Take 500 mg by mouth every twelve hours. DULoxetine 30 mg oral capsule,delayed release(DR/EC) 30 mg by feeding tube route once d aily. HYDROcodone-acetaminophen 10-325 mg oral tablet Take 1 tablet by mouth every four hours as needed. Pt reports taking 2 tablets twice daily, morning and evening and one tablet duri ng the day LORazepam 1 mg oral tablet Take 1 mg by mouth as needed for anxiety (and sleep). metroNIDAZOLE 500 mg oral tablet Take 500 mg by mouth every six hours. omeprazole (PRILOSEC) 20 mg oral capsule,delayed release(DR/EC) Take 1 capsule by mouth once daily in the morning. ondansetron ODT (ZOFRAN ODT) 4 mg oral tablet,disintegrating Dissolve 1-2 tablets on to ngue and swallow every twelve hours as needed. propranolol 60 mg oral tablet Take 0.5 tablets by mouth two times daily. tamsulosin (FLOMAX) 0.4 mg oral capsule Take 1 capsule by mouth once daily. No current facility-administered medications for this visit. Review of Systems: Remaining 10 systems reviewed, see scanned document Fam Hx: reviewed, see scanned document Physical Examination: There were no vitals taken for this visit. ECOG PS: 1 Gen: Well-developed, well-nourished, ambulatory, in no distress. Skin: No significant rash, ecchymoses or jaundice. HEENT: Oropharynx is clear with no exudates or erythema. No scleral icterus. Nodes: No pathologically enlarged nodes in the bilateral submandibular, submental, cervic al, supraclavicular areas Chest: Clear to auscultation bilaterally, no rales, wheezes or rhonchi CV: Regular rate and rhythm, no murmurs or rubs Abd: Soft, non-tender, non-distended, normal bowel sounds, no hepatosplenomegaly Extr: Extremities warm, well perfused. No edema, calf pain bilaterally Neuro: A&O x 3. Psych: Pleasant, conversant, affect appropriate. Labs: Lab Results Component Value Date NA 142 11/12/2018 K 3.9 11/12/2018 CL 104 11/12/2018 BICARB 29 11/12/2018 BUN 11 11/12/2018 CR 0.7 11/12/2018 GLU 110 11/12/2018 CA 9.3 11/12/2018 AST 35 11/12/2018 ALT 34 11/12/2018 AP 58 11/12/2018 TBILI 0.6 11/12/2018 TP 6.2 11/12/2018 ALB 3.4 11/12/2018 Lab Results Component Value Date WBC 3.2 11/12/2018 HB 10.4 11/12/2018 HCT 30.4 11/12/2018 PLT 158 11/12/2018 MCV 100.3 11/12/2018 RDW 45.3 10/28/2018 Yun Ronquillo M.S., PADerrellC Physician Natural Science Manager Medical Oncology Pager [phone] documented in t his encounter Plan of Treatment Not on filedocumented as of this encounter Visit Diagnoses + + | Diagnosis | + + | Malignant neoplasm of lower third of esophagus (HCC) - Primary Malignant neoplasm of | | lower third of esophagus | + + | Clinical trial exam Examination of participant in clinical trial | + + documented in this encounter"
--- OUTSIDE RECORDS SUMMARY | ~2019-11-23 | XMS | Encounter Summary ---
Demographics + + + | Address | [address] | | | [place] [address] | + + + | Home Phone | | + + + | Preferred Language | Unknown | + + + | Marital Status | | + + + | Mu-Ism Affiliation | CAT | + + + | Race | White | + + + | Ethnic Group | Not or | + + + Author + + + | Author | [facility] | + + + | Organization | [facility] | + + + | Address | [...] Team Providers + +------+ + | Care School Curriculum Developer Name | Role | Phone | + +------+ + | Luis Leiva DO | PCP | | + +------+ + Reason for Visit Consultation (Routine) +--------+--------+ + + + + | Status | Reason | Specialty | Diagnoses / | Referred By | Referred To | | | | | Procedures | Contact | Contact | +--------+--------+ + + + + | Closed | | Radiation | Diagnoses | João | Catarino, | | | | Oncology | Malignant | MD Daija | Krunal Dudley MD | | | | | neoplasm of | [address] | [address] [facility] | | | | | lower third | [facility] | [facility] | | | | | of esophagus | [facility] | Rd | | | | | Esophagus | Road | [place], [place] | | | | | [place] | [facility] [place] | [address] | | | | | Procedures | [address] | Phone: | | | | | Consult, | Phone: | [phone] | | | | | Sage Wilkins | [phone] | Fax: | | | | | | Fax: | [phone] | | | | | | [phone] | | +--------+--------+ + + + + Encounter Details +--------+ + + + + | Date | Type | Department | Care Team | Description | +--------+ + + + + | 01/02/ | Hospital | Radiation Oncology | | | | 2018 | Encounter | at [facility] [address] | | | | | | [place] | | | | | | [id number] [facility] | | | [facility] [place], | | | | | | [place] [address] | | | | | | [phone] | | | +--------+ + + + + Social History + +-------+ +--------+ + | Tobacco Use | Types | Packs/Day | Years | Date | | | | | Used | | + +-------+ +--------+ + | Former Smoker | | | | Quit: 12/15/1989 | + +-------+ +--------+ + + +------+---+---+ | Smokeless Tobacco: | Chew | | | | Current User | | | | + +------+---+---+ + + +---------+ + | Alcohol Use [...] + + documented as of this encounter Medications at Time of Discharge + + + +---------+--------+ + | Medication | Sig | Dispensed | Refills | Start | End Date | | | | | | Date | | + + + +---------+--------+ + | LORazepam 1 mg | Take 1 mg by mouth | | 0 | | | | oral tablet | as needed for | | | | | | | anxiety (and sleep). | | | | | + + + +---------+--------+ + documented as of this encounter Plan of Treatment Not on filedocumented as of this encounter Visit Diagnoses Not on filedocumented in this encounter"
--- OUTSIDE RECORDS SUMMARY | ~2019-11-23 | XMS | Encounter Summary ---
Demographics + + + | Address | [address] | | | [place] [address] | + + + | Home Phone | | + + + | Preferred Language | Unknown | + + + | Marital Status | | + + + | Restoration Affiliation | CAT | + + + | Race | White | + + + | Ethnic Group | Not or | + + + Author + + + | Author | [facility] | + + + | Organization | [facility] | + + + | Address [...] Team Providers + +------+ + | Care Customer Expert Name | Role | Phone | + +------+ + | Christos Olivarez MD | PCP | | + +------+ + Reason for Visit + + + | Reason | Comments | + + + | Prescription | | + + + Encounter Details +--------+ + + + + | Date | Type | Department | Care Team | Description | +--------+ + + + + | 05/30/ | Telephone | Dig[facility]ive [facility] | TateEleonora, | Prescription | | 2017 | | Center at [facility] [address] | [address] | | | | | [address] | [place], [place] | | | | | Mailcode: [place] | [address] | | | | | for Health and | [phone] | | | | | [facility] [address] | | | | | | [place], [place] | | | | | | [address] | | | | | | [phone] | | | +--------+ + + + [...] + + documented as of this encounter Plan of Treatment Not on filedocumented as of this encounter Visit Diagnoses Not on filedocumented in this encounter"
--- OUTSIDE RECORDS SUMMARY | ~2019-11-23 | XMS | Encounter Summary ---
Demographics + + + | Address | [address] | | | [place] [address] | + + + | Home Phone | | + + + | Preferred Language | Unknown | + + + | Marital Status | | + + + | Taoist Affiliation | CAT | + + + | Race | White | + + + | Ethnic Group | Not or | + + + Author + + + | Author | [facility] | + + + | Organization | [facility] | + + + | Address | [...] Team Providers + +------+ + | Care Blind Teacher Name | Role | Phone | + +------+ + | Christos Olivarez MD | PCP | | + +------+ + Reason for Visit + + + | Reason | Comments | + + + | Lab Draw | | + + + Encounter Details +--------+ + + + + | Date | Type | Department | Care Team | Description | +--------+ + + + + | 05/20/ | Clinical | Laboratory at [facility] | | Lab Draw | | 2019 | Support | [address] | | | | | Staff | [place], [place] | | | | | | [address] | | | | | | [phone] | | | +--------+ + + + [...] documented as of this encounter Progress Notes Karen Farias RN - 05/20/2019 1:00 PM PDTPt arrives with PIV in place in right AC, was kathy froy earlier today in radiology. Labs drawn from PIV and sent to lab. Pt tolerated without in cident. Pt discharged to provider visit. documented in this encou nter Plan of Treatment Not on filedocumented as of this encounter Procedures + +--------+ + + + | Procedure Name | Priori | Date/Time | Associated Diagnosis | Comments | | | ty | | | | + +--------+ + + + | CBC AND AUTO DIFF - | Routin | 05/20/2019 | Malignant neoplasm | Results for this | | [facility] | e | 12:42 PM | of lower third of | procedure are in the | | | | PDT | esophagus (HCC) | results section. | + +--------+ + + + | COMPLETE METABOLIC | Routin | 05/20/2019 | Malignant neoplasm | Results for this | | PANEL - [facility]LP | e | 12:42 PM | of lower third of | procedure are in the | | | | PDT | esophagus (HCC) | results section. | + +--------+ + + + | CBC WITH AUTO DIFF - | Routin | 05/20/2019 | Malignant neoplasm | Results for this | | [facility] | e | 12:42 PM | of lower third of | procedure are in the | | | | PDT | esophagus (HCC) | results section. | + +--------+ + + + | [facility] - COMPLETE | Routin | 05/20/2019 | Malignant neoplasm | Results for this | | METABOLIC SET | e | 12:42 PM | of lower third of | procedure are in the | | | | PDT | esophagus (HCC) | results section. | + +--------+ + + + | LIPASE, PLASMA | Routin | 05/20/2019 | Malignant neoplasm | Results for this | | | e | 12:41 PM | of lower third of | procedure are in the | | | | PDT | esophagus (HCC) | results section. | + +--------+ + + + | LDH TOTAL, PLASMA | Routin | 05/20/2019 | Malignant neoplasm | Results for this | | | e | 12:41 PM | of lower third of | procedure are in the | | | | PDT | esophagus (HCC) | results section. | + +--------+ + + + | AMYLASE, PLASMA | Routin | 05/20/2019 | Malignant neoplasm | Results for this | | | e | 12:41 PM | of lower third of | procedure are in the | | | | PDT | esophagus (HCC) | results section. | + +--------+ + + + | NURSING | Routin | 05/20/2019 | Malignant neoplasm | | | COMMUNICATION #1 - | e | 12:40 PM | of lower third of | | | [facility] | | PDT | esophagus (HCC) | | + +--------+ + + + documented in this encounter Results CBC AND AUTO DIFF - [facility] (05/20/2019 12:42 PM PDT) + + + + + + | Component | Value | Ref Range | Performed | Pathologist | | | | | At | Signature | + + + + + + | WHITE CELL | 3.37 (L) | 3.50 - 10.80 | [facility] | | | COUNT | | K/cu mm | LABORATORY | | | | | | SERVICES, | | | | | | [facility] | [facility] | | | | [facility] | | + + + + + + | RED CELL | 3.13 (L) | 4.50 - 6.00 | [facility] | | | COUNT | | M/cu mm | LABORATORY | | | | | | SERVICES, | | | | | | [facility] + | | | | | | [facility] | | + + + + + + | HEMOGLOBIN | 10.7 (L) | 13.5 - 17.5 | [facility] | | | | | g/dL | LABORATORY | | | | | | SERVICES, | | | | | | [facility] + | | | | | | [facility] | | + + + + + + | HEMATOCRIT | 32.2 (L) | 41.0 - 53.0 % | [facility] | | | | | | LABORATORY | | | | | | SERVICES, | | | | | | [facility] + | | | | | | [facility] | | + + + + + + | MCV | 102.9 (H) | 80.0 - 100.0 fL | [facility] | | | | | | LABORATORY | | | | | | SERVICES, | | | | | | [facility] + | | | | | | [facility] | | + + + + + + | MCHC | 33.2 | 32.0 - 36.0 | [facility] | | | | | g/dL | LABORATORY | | | | | | SERVICES, | | | | | | [facility] + | | | | | | [facility] | | + + + + + + | RDW SD | 54.4 (H) | 35.1 - 46.3 fL | [facility] | | | | | | LABORATORY | | | | | | SERVICES, | | | | | | [facility] + | | | | | | [facility] | | + + + + + + | PLATELET | 142 (L) | 150 - 400 K/cu | [facility] | | | COUNT | | mm | LABORATORY | | | | | | SERVICES, | | | | | | [facility] + | | | | | | [facility] | | + + + + + + | MPV | 9.2 (L) | 9.7 - 12.3 fL | [facility] | | | | | | LABORATORY | | | | | | SERVICES, | | | | | | [facility] + | | | | | | [facility] | | + + + + + + | NRBC% | 0.0 | 0.0 - 0.3 % | [facility] | | | | | | LABORATORY | | | | | | SERVICES, | | | | | | [facility] + | | | | | | [facility] | | + + + + + + | NRBC# | 0.00 | 0.00 - 0.02 | [facility] | | | | | K/cu mm | LABORATORY | | | | | | SERVICES, | | | | | | [facility] + | | | | | | [facility] | | + + + + + + | NEUTROPHIL | 56.4 | 50.0 - 70.0 % | [facility] | | | % | | | LABORATORY | | | | | | SERVICES, | | | | | | [facility] + | | | | | | [facility] | | + + + + + + | LYMPHOCYTE | 26.7 | 18.0 - 42.0 % | [facility] | | | % | | | LABORATORY | | | | | | SERVICES, | | | | | | [facility] + | | | | | | [facility] | | + + + + + + | MONOCYTE % | 10.7 (H) | 3.5 - 9.0 % | [facility] | | | | | | LABORATORY | | | | | | SERVICES, | | | | | | [facility] + | | | | | | [facility] | | + + + + + + | EOS % | 5.3 (H) | 1.0 - 3.0 % | [facility] | | | | | | LABORATORY | | | | | | SERVICES, | | | | | | [facility] + | | | | | | [facility] | | + + + + + + | BASO % | 0.6 | 0.0 - 2.0 % | [facility] | | | | | | LABORATORY | | | | | | SERVICES, | | | | | | [facility] + | | | | | | [facility] | | + + + + + + | IG% | 0.3Comment: Increased | 0.0 - 1.0 % | [facility] | | | | immature granulocytes | | LABORATORY | | | | (IG) define a left | | SERVICES, | | | | shift. Immature | | [facility] | | | | granulocytes (IG) are an | | HEALTH + | | | | automated count of | | HEALING | | | | metamyelocytes, | | | | | | myelocytes and | | | | | | promyelocytes. Bands | | | | | | are not included in the | | | | | | IG count. Bands are | | | | | | included in the | | | | | | neutrophil count. | | | | + + + + + + | NEUTROPHIL | 1.90 | 1.80 - 7.70 | [facility] | | | # | | K/cu mm | LABORATORY | | | | | | SERVICES, | | | | | | [facility] + | | | | | | [facility] | | + + + + + + | NEUTROPHIL | 1.90Comment: Preliminary | 1.80 - 7.70 | [facility] | | | # Prelim | automated neutrophil | K/cu mm | LABORATORY | | | | result. Refer to | | SERVICES, | | | | Neutrophil # for final | | [facility] | | | | neutrophil result, which | | HEALTH + | | | | may differ from this | | HEALING | | | | preliminary value. | | | | + + + + + + | LYMPHOCYTE | 0.90 (L) | 1.00 - 4.80 | [facility] | | | # | | K/cu mm | LABORATORY | | | | | | SERVICES, | | | | | | [facility] | [facility] + | | | | | | [facility]AL[facility] | | + + + + + + | MONOCYTE # | 0.36 | 0.10 - 0.90 | [facility] | | | | | K/cu mm | LABORATORY | | | | | | SERVICES, | | | | | | [facility] | [facility] + | | | | | | [facility] | | + + + + + + | EOS # | 0.18 | 0.00 - 0.50 | [facility] | | | | | K/cu mm | LABORATORY | | | | | | SERVICES, | | | | | | [facility] + | | | | | | [facility] | | + + + + + + | BASO # | 0.02 | 0.00 - 0.10 | [facility] | | | | | K/cu mm | LABORATORY | | | | | | SERVICES, | | | | | | [facility] + | | | | | | [facility] | | + + + + + + | IG# | 0.01 | 0.00 - 0.10 | [facility] | | | | | K/cu mm | LABORATORY | | | | | | SERVICES, | | | | | | [facility] | | | | | | HEALTH + | | | | | | HEALING | | + + + + + + + + | Specimen | + + | Blood - Blood | | (substance) | + + + + + | Narrative | Performed At | + + + | Increased immature granulocytes (IG) define a left shift. Immature | [facility] | | granulocytes (IG) are an automated count of metamyelocytes, myelocytes | LABORATORY | | and promyelocytes. Bands are not included in the IG count. Bands are | SERVICES, | | included in the neutrophil count. | [facility] | [facility] + | | | [facility]AL[facility] | + + + + + + + + | Performing | Address | City/State/Zipcode | Phone Number | | Organization | | | | + + + + + | [facility] | [address] | [place] [address] | | | [facility] | [facility] | | | | + + + + + [facility] - COMPLETE METABOLIC SET (05/20/2019 12:42 PM PDT) + + + + + + | Component | Value | Ref Range | Performed | Pathologist | | | | | At | Signature | + + + + + + | GLUCOSE, | 131 (H) | 70 - 99 mg/dL | [facility] | | | PLASMA | | | LABORATORY | | | (LAB) | | | SERVICES, | | | | | | [facility] | [facility] + | | | | | | [facility] | | + + + + + + | BUN, PLASMA | 9 | 6 - 20 mg/dL | [facility] | | | (LAB) | | | LABORATORY | | | | | | SERVICES, | | | | | | [facility] | [facility] + | | | | | | [facility]ALING | | + + + + + + | CREATININE | 0.60 (L) | 0.70 - 1.30 | [facility] | | | PLASMA | | mg/dL | LABORATORY | | | (LAB) | | | SERVICES, | | | | | | [facility] | [facility] | | [facility] + | | | | | | [facility]ALING | | + + + + + + | SODIUM, | 136 | 134 - 143 | [facility] | | | PLASMA | | mmol/L | LABORATORY | | | (LAB) | | | SERVICES, | | | | | | [facility] | | [facility] + | | | | | | [facility]ALING | | + + + + + + | POTASSIUM, | 3.6 | 3.4 - 5.0 | [facility] | | | PLASMA | | mmol/L | LABORATORY | | | (LAB) | | | SERVICES, | | | | | | [facility] | | | | [facility] + | | | | | | HEALING | | + + + + + + | CHLORIDE, | 107 | 97 - 108 mmol/L | [facility] | | | PLASMA | | | LABORATORY | | | (LAB) | | | SERVICES, | | | | | | [facility] | | | [facility] + | | | | | | HEALING | | + + + + + + | TOTAL CO2, | 30 (H) | 22 - 29 mmol/L | [facility] | | | PLASMA | | | LABORATORY | | | (LAB) | | | SERVICES, | | | | | | [facility] | | | [facility] + | | | | | | [facility]AL[facility] | | + + + + + + | CALCIUM, | 8.9 | 8.6 - 10.2 | [facility] | | | PLASMA | | mg/dL | LABORATORY | | | (LAB) | | | SERVICES, | | | | | | [facility] | | | | [facility] + | | | | | | [facility]ALING | | + + + + + + | CALCIUM(ALB | 9.5 | 8.6 - 10.2 | [facility] | | | CORRECTED) | | mg/dL | LABORATORY | | | | | | SERVICES, | | | | | | [facility] | [facility] + | | | | | | HEALING | | + + + + + + | BILIRUBIN | 0.7 | 0.3 - 1.2 mg/dL | [facility] | | | TOTAL | | | LABORATORY | | | | | | SERVICES, | | | | | | [facility] | | | | | [facility] + | | | | | | HEALING | | + + + + + + | TOTAL | 6.7 | 6.1 - 7.9 g/dL | [facility] | | | PROTEIN, | | | LABORATORY | | | PLASMA | | | SERVICES, | | | (LAB) | | | [facility] | | | | | [facility] + | | | | | | HEALING | | + + + + + + | ALBUMIN, | 3.2 (L) | 3.5 - 4.7 g/dL | [facility] | | | PLASMA | | | LABORATORY | | | (LAB) | | | SERVICES, | | | | | | [facility] | | | [facility] | [facility] + | | | | | | HEALING | | + + + + + + | ALK PHOS | 85 | 43 - 92 U/L | [facility] | | | | | | LABORATORY | | | | | | SERVICES, | | | | | | [facility] | | | | [facility] + | | | | | | HEALING | | + + + + + + | AST(SGOT) | 78 (H) | <=41 U/L | [facility] | | | | | | LABORATORY | | | | | | SERVICES, | | | | | | [facility] | | [facility] + | | | | | | HEALING | | + + + + + + | ALT (SGPT) | 67 (H) | <=60 U/L | [facility] | | | | | | LABORATORY | | | | | | SERVICES, | | | | | | [facility] | | [facility] + | | | | | | HEALING | | + + + + + + | ANION GAP | | 4 - 11 mmol/L | [facility] | | | | | | LABORATORY | | | | | | SERVICES, | | | | | | [facility] | [facility] | [facility] + | | | | | | HEALING | | + + + + + + | ANION | | 4 - 11 mmol/L | [facility] | | | GAP(ALB | | | LABORATORY | | | CORRECTED) | | | SERVICES, | | | | | | [facility] | | | [facility] | [facility] + | | | | | | HEALING | | + + + + + + + + | Specimen | + + | Blood - Blood | | (substance) | + + + + + + + | Performing | Address | City/State/Zipcode | Phone Number | | Organization | | | | + + + + + | [facility] | [address] | [place] [address] | | | [facility] | | | | | HEALTH + HEALING | | | | + + + + + LDH TOTAL, PLASMA (05/20/2019 12:41 PM PDT) + +---------+ + + + | Component | Value | Ref Range | Performed | Pathologist | | | | | At | Signature | + +---------+ + + + | LD TOTAL, | 163 | <=250 U/L | [facility] | | | PLASMA | | | LABORATORY | | | | | | [facility], | | | | | | CORE | | + +---------+ + + + | LD CMNT | No Hemo | | [facility] | | | | | | LABORATORY | | | | | | SERVICES, | | | | | | CORE | | + +---------+ + + + + + | Specimen | + + | Blood - Blood | | (substance) | + + + + + + + | Performing | Address | City/State/Zipcode | Phone Number | | Organization | | | | + + + + + | [facility] | [address] | [place] [address] | | | [place], JUSTIN | [address] | | | + + + + + LIPASE, PLASMA (05/20/2019 12:41 PM PDT) + +--------+ + + + | Component | Value | Ref Range | Performed | Pathologist | | | | | At | Signature | + +--------+ + + + | LIPASE | 81 (L) | 152 - 353 U/L | [facility] | | | (LAB) | | | LABORATORY | | | | | | SERVICES, | | | | | | CORE | | + +--------+ + + + + + | Specimen | + + | Blood - Blood | | (substance) | + + + + + + + | Performing | Address | City/State/Zipcode | Phone Number | | Organization | | | | + + + + + | [facility] | [address] | [place] [address] | | | SERVICES, CORE | [address] | | | + + + + + AMYLASE, PLASMA (05/20/2019 12:41 PM PDT) + +-------+ + + + | Component | Value | Ref Range | Performed | Pathologist | | | | | At | Signature | + +-------+ + + + | AMYLASE,KATHY | 40 | 25 - 115 U/L | [facility] | | | [facility] | | | LABORATORY | | | | | | SERVICES, | | | | | | CORE | | + +-------+ + + + + + | Specimen | + + | Blood - Blood | | (substance) | + + + + + + + | Performing | Address | City/State/Zipcode | Phone Number | | Organization | | | | + + + + + | [facility] | [address] | [place] [address] | | | SERVICES, CORE | [address] | | | + + + + + documented in this encounter Visit Diagnoses + + | Diagnosis | + + | 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
--- OUTSIDE RECORDS SUMMARY | ~2019-11-23 | XMS | Encounter Summary ---
Demographics + + + | Address | [address] | | | [place] [address] | + + + | Home Phone | | + + + | Preferred Language | Unknown | + + + | Marital Status | | + + + | Synagogue Affiliation | CAT | + + + | Race | White | + + + | Ethnic Group | Not or | + + + Author + + + | Author | [facility] | + + + | Organization | [facility] | + + + | Address [...] Team Providers + +------+ + | Care Warp Knitter Helper Name | Role | Phone | + +------+ + | Christos Olivarez MD | PCP | | + +------+ + Encounter Details +--------+ + + + + | Date | Type | Department | Care Team | Description | +--------+ + + + + | 01/22/ | Outside Plant Technician | Hematology | Krunal Godoy, | Malignant neoplasm | | 2019 | | Oncology Study [address] | ,PhD [address] | of abdominal | | | | [address] | [address] [place], [place] | esophagus (HCC) | | | | Mailcode: CH7M | [id number] | (Primary Dx) | | | | [facility] | [phone] | | | | | and Monika, | | | | | | [facility] | | | | | | [place], [place] | | | | | | [address] | | | | | | [phone] | | | +--------+ + + + [...] Not on filedocumented as of this encounter Results LIPASE, PLASMA (01/22/2019 12:50 PM PST) + +---------+ + + + | Component | Value | Ref Range | Performed | Pathologist | | | | | At | Signature | + +---------+ + + + | LIPASE | 144 (L) | 152 - 353 U/L | [...] + + + + + | [facility] | [address] | [place] [address] | | | SERVICES, CORE | [address] | | | + + + + + AMYLASE, PLASMA (01/22/2019 12:50 PM PST) + +-------+ + + + | Component | Value | Ref Range | Performed | Pathologist | | | | | At | Signature | + +-------+ + + + | AMYLASE,KATHY | 47 | 25 - 115 U/L | [facility] | | | SMA | | | [...] + + + | [facility] | [address] | [place] [address] | | | SERVICES, CORE | [address] | | | + + + + + LDH TOTAL, PLASMA (01/22/2019 12:50 PM PST) + +---------+ + + + | Component [...] + + + + + | [facility] | [address] | [place] [address] | | | SERVICES, CORE | [address] | | | + + + + + documented in this encounter Visit Diagnoses + + | Diagnosis | + + | 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
--- OUTSIDE RECORDS SUMMARY | ~2019-11-23 | XMS | Encounter Summary ---
Demographics + + + | Address | [address] | | | [place] [address] | + + + | Home Phone | | + + + | Preferred Language | Unknown | + + + | Marital Status | | + + + | Bahai Affiliation | CAT | + + + | Race | White | + + + | Ethnic Group | Not or | + + + Author + + + | Author | [facility] | + + + | Organization | [facility] | + + + | [...] Team Providers + +------+ + | Care Patch Press Operator Name | Role | Phone | + +------+ + | Christos Olivarez MD | PCP | | + +------+ + Reason for Visit + + + | Reason | Comments | + + + | Follow-up visit | | + + + Office Visit - E/M Services (Routine) +--------+---------+ [...] | neoplasm of | [address] | | | | | lower third | [address] | Mailcode: | | | | | of esophagus | [address] | [facility] | | | | | Procedures | [place], [place] | Health and | | | | | [place] | [address] | Healing, | | | | | SERVICES | Phone: | [address] | | | | | PROVIDED | [phone] | [place], [place] | | | | | PART OF [place] | Fax: | [address] | | | | | INJ | [phone] | Phone: | | | | | NIVOLUM[facility] [address] | | [phone] | | | | | [place] EST | | Fax: | | | | | PATIENT | | [phone] | | | | | LEVEL V | | | | | | | Study IRB: | | | | | | | [id number] Study | | | | | | [...] Description | +--------+---------+ + + + | 11/27/ | Office | Hematology/Medical | Marie Liz, | Malignant neoplasm | | 2019 | Visit | Oncology at [facility] | [address] | of lower third of | | | | for Health [facility] Healing | [address] | esophagus (HCC) | | | | [address] | [place] [address] | (Primary Dx) | | | | Mailcode: [facility] | [phone] | | | | | for Health and | | | | | | Healing, [address] | | | | | | [place], [place] | | | | | | [address] | | | | | | [phone] | | | +--------+---------+ + + + [...] + + documented as of this encounter Last Filed Vital Signs + + + + + | Vital Sign | Reading | Time Taken | Comments | + + + + + | Blood Pressure | 107/73 | 11/27/2018 1:02 PM | | | | | PST | | + + + + + | Pulse | 60 | 11/27/2018 1:02 PM | | | | | PST | | + + + + + | Temperature | 36.3 C (97.4 F) | 11/27/2018 1:02 PM | | | | | PST | | + + + + + | Respiratory Rate | 16 | 11/27/2018 1:02 PM | | | | | PST | | + + + + + | Oxygen Saturation | 100% | 11/27/2018 1:02 PM | | | | | PST | | + + + + + | Inhaled Oxygen | - | - | | | Concentration | | | | + + + + + | Weight | 63.8 kg (140 lb 11.2 | 11/27/2018 1:02 PM | | | | oz) | PST | | + + + + + | Height | - | - | | + + + + + | Body Mass Index | 21.39 | 09/03/2018 11:47 AM | | | | | PDT | | + + + + + documented in this encounter Functional Status + + + [...] documented as of this encounter Progress Notes Kerrie Luna, RN - 11/27/2018 1:00 PM PST Research RN Note: Mr. Jacob Sapp presents today for C7D1 nivolumab vs placebo after signing consent to particip ate in MF157-198: A Randomized, Multicenter, Double Blind, Phase III Study of Adjuvant Nivol umab or Placebo in Subjects with Resected Lower Esophageal, or Gastroesophageal Junction Can cer (CheckMate 577: CHECKpoint pathway and nivoluMab clinical Trial Evaluation 577). Seen today by Dr. Liz and myself. Off antibiotics for diverticular pain. Scan reviewed. JAMIL. RTC 2 weeks. OF NOTE: Prohibited medications: Labs were reviewed: yes ECO Accompanied today by: Baseline stool count: Baseline neuropathy: none Baseline weight: 70.2 kg IV access: PIV RD/SW referral: [facility] established Multi-D MD: Chemotherapy teaching: done per chemo binder and [facility] My Chart access: active and encouraged Patient reports that neoadjuvant chemo was completed at [facility] [place], [place]. Radiation completed at [facility]. He reports the following medical and surgical history at baseline: Past Medical History: Diagnosis Date Cervical spinal stenosis 1997 Coronary artery disease 2007 diagnosed on angiogram when experienced chest pain - treated with medications, pain attr ibuted to esophageal spasm, never had MT or stent H/O Diverticulosis 1997 Hernia, hiatal, [...] 1500mg tab PO daily General health 2007 Trisha-C 1 tab PO daily General health 2007 [...] Infections and Infestations- other (Diverticulitis) 2 10/09/18 10/19/18-intermittent ongoi ng, stop date 11/27/18 New On Study Medications Medication dose route frequency indication Start date Stop date Ciprofloxacin 500 mg PO BID Infections and Infestations- other (Diverticulitis) 10/09/18 10/12/18 Metronidazole 500 mg PO TID Infections and Infestations- other (Diverticulitis) 10/09/18 1 12/19/17 Zofran 4 mg PO Q12H PRN Nausea intermittent 10/15/18 Bactrim DS 1 tab PO BID X 10 days Infections and Infestations- other (Diverticulitis) 10/2110/31/18 Lloyd Roy, Marie - 12/2018 1:00 PM PST Oncology Assessment: Cancer Staging Malignant [...] or no response, score 3) - 07/31/2018 [facility] Medical oncology evaluation- offered enrollment on [...] 10/15/18 Cycle 4 - 10/28/18 Cycle 5 - 11/12/18 Cycle 6 - 11/27/18 CT CAP 1. Since 05/21/2018, stable post surgical changes of an esophagectomy with gastric pull-thro ugh. No clear evidence of recurrent or metastatic disease. Mild nodularity/stranding in the left subphrenic omentum is nonspecific however close attention is recommended to exclude dev eloping peritoneal disease. 2. Small left pleural effusion, decreased in size. 3. Dependently layering pills/ingested food seen in the mid conduit may indicate an element of stasis. - 11/27/18 Cycle 7 Plan/ Recommendations: 1. Cancer Staging Malignant neoplasm of lower third of esophagus (HCC) Staging form: Esophagus - Adenocarcinoma, AJCC 8th Edition - Clinical: No stage assigned - Unsigned - Pathologic: Stage IIIB (pT3, pN2, cM0) - Signed by Marie Liz MD on 07/31/2018 - Continue investigational therapy Nivolumab/placebo - stable fatigue. Decreased appetite. No diarrhea - Proceed with Cycle 7 Nivolumab/placebo today, monitor closely for toxicities 2. Abd pain - s/p recent antibiotics for diverticulitis - no fever, no eleveated wbc - no concerning findings on CT scan today, some indeterminate omental nodularity which need s to be followed No orders of the defined types were placed in this encounter. Return for per research team. The patient is receiving chemotherapy which requires ongoing evaluation of toxicity due to cytotoxic therapy and assessment of disease status and disease related symptoms. Interval History: Jacob Sapp returns to clinic today for Chief Complaint Patient presents with Follow-up visit Since the last clinic visit, he was treated for diverticulitis locally. He denies any feve rs, he continues to have some left upper quadrant discomfort, also some right mid abdominal discomfort at times, he has had no nausea or vomiting, no fevers or chills. The pain does r esult in some decrease in appetite but he continues to tolerate a normal diet. He has had n o diarrhea, has needed to take no medications for this. He denies any shortness of breath, cough, rash or swelling. Current Outpatient Prescriptions Medication Sig atorvastatin calcium (ATORVASTATIN ORAL) Take by mouth. DULoxetine 30 mg oral capsule,delayed release(DR/EC) 30 mg by feeding tube route once d aily. HYDROcodone-acetaminophen 10-325 mg oral tablet Take 1 tablet by mouth every four hours as needed. Pt reports taking 2 tablets twice daily, morning and evening and one tablet duri ng the day LORazepam 1 mg oral tablet Take 1 mg by mouth as needed for anxiety (and sleep). omeprazole (PRILOSEC) 20 mg oral capsule,delayed release(DR/EC) [...] Hx: reviewed, see scanned document Physical Examination: BP 107/73 | Pulse 60 | Temp (Src) 36.3 C (97.4 F) (Oral) | RR 16 | Wt 63.8 kg (140 lb 1 1.2 oz) | SpO2 100% | BMI 21.39 kg/(m^2) ECOG PS: 1 Gen: Well-developed, well-nourished, ambulatory, in no distress Skin: No significant rash or ecchymoses HEENT: Oropharynx is clear with no exudates or erythema. No scleral icterus. Nodes: No pathologically enlarged nodes in the bilateral cervical, supraclavicular areas Chest: Clear to auscultation and percussion bilaterally, no rales, wheezes or rhonchi CV: Regular rate and rhythm, no murmurs or rubs Abd: Soft, mildly tender in the LUQ and RUQ, no rebound, no guarding, non-distended, quang l bowel sounds, no hepatosplenomegaly, healed incision Extr: No edema, calf pain Labs: Lab Results Component Value Date NA 136 11/27/2018 K 3.9 11/27/2018 CL 101 11/27/2018 BICARB 30 11/27/2018 BUN 7 11/27/2018 CR 1.10 11/27/2018 GLU 82 11/27/2018 CA 9.3 11/27/2018 AST 68 11/27/2018 ALT 72 11/27/2018 AP 70 11/27/2018 TBILI 0.5 11/27/2018 TP 6.1 11/27/2018 ALB 3.0 11/27/2018 Lab Results Component Value Date WBC 3.33 11/27/2018 HB 10.4 11/27/2018 HCT 30.5 11/27/2018 PLT 168 11/27/2018 MCV 98.4 11/27/2018 RDW 45.7 11/27/2018 Imaging: Current and prior CTs were personally reviewed, agree with report Marie Liz MD Clinical specialist physician Medical Oncology and Hematology documented in this encou nter Plan of Treatment Not on filedocumented as of this encounter Visit Diagnoses + + | Diagnosis | + + | 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
--- OUTSIDE RECORDS SUMMARY | ~2019-11-23 | XMS | Encounter Summary ---
Demographics + + + | Address | [address] | | | [place] [address] | + + + | Home Phone | | + + + | Preferred Language | Unknown | + + + | Marital Status | | + + + | Yazidi Affiliation | CAT | + + + | Race | White | + + + | Ethnic Group | Not or | + + + Author + + + | Author | [facility] | + + + | Organization | [facility] | + + + | Address | [...] Team Providers + +------+ + | Care Crew Mess Attendant Name | Role | Phone | + +------+ + | Christos Olivarez MD | PCP | | + +------+ + Reason for Referral Diagnostic Testing (Routine) +--------+--------+ + + + + | Status | Reason | Specialty | Diagnoses / | Referred By | Referred To | | | | | Procedures | Contact | Contact | +--------+--------+ + + + + | Closed | | Radiology | Diagnoses | Walt, | Rad Ct Scan | | | | | Malignant | Krunal | s [address] | | | | | neoplasm of | ,[address] | | | | | lower third | [address] | [address] | | | | | of esophagus | [place], | Mailcode: | | | | | (HCC) | [place] | [address] [facility] | | | | | Procedures | [id number] | Hospital | | | | | CT CHEST, | Phone: | [place], [place] | | | | | ABDOMEN AND | [phone] | [address] | | | | | PELVIS W IV | Fax: | Phone: | | | | | CONTRAST CA | [phone] | [phone] | | | | | CAT SCAN OF | | Fax: | | | | | CHEST | | [phone] | | | | | CONTRAST CA | | | | | | | CT | | | | | | | ABDOMEN&PELV | | | | | | | IS | | | | | | | W/CONTRAST | | | +--------+--------+ + + + + Reason for Visit Diagnostic Testing (Routine) +--------+--------+ + + + + | Status | Reason | Specialty | Diagnoses / | Referred By | Referred To | | | | | Procedures | Contact | Contact | +--------+--------+ + + + + | Closed | | Radiology | Diagnoses | Walt, | Rad Ct Scan | | | | | Malignant | Krunal | [address] | | | | | neoplasm of | ,[address] | | | | | lower third | [address] | [address] | | | | | of esophagus | [place], | Mailcode: | | | | | (HCC) | [place] | [address] [facility] | | | | | Procedures | [id number] | Hospital | | | | | CT CHEST, | Phone: | [place], [place] | | | | | ABDOMEN AND | [phone] | [address] | | | | | PELVIS W IV | Fax: | Phone: | | | | | CONTRAST [place] | [phone] | [phone] | | | | | CAT SCAN OF | | Fax: | | | | | CHEST | | [phone] | | | | | CONTRAST CA | | | | | | | CT | | | | | | | ABDOMEN&PELV | | | | | | | IS | | | | | | | W/CONTRAST | | | +--------+--------+ + + + + Encounter Details +--------+ + + + + | Date | Type | Department | Care Team | Description | +--------+ + + + + | 02/17/ | Hospital | Diagnostic Imaging | Krunal Godoy, | | | 2019 | Encounter | Services at [facility] | ,PhD [address] | | | | | [address] | [place], [place] | | | | | [place] [address] Mailcode: | [address] | | | | | [address] [facility] | [phone] | | | | | [place], [place] | | | | | | [address] | | | | | | [phone] | | | +--------+ + + + [...] + + + | Blood Pressure | - | - | | + + + + + | Pulse | - | - | | + + + + + | Temperature | - | - | | + + + + + | Respiratory Rate | - | - | | + + + + + | Oxygen Saturation | - | - | | + + + + + | Inhaled Oxygen | - | - | | | Concentration | | | | + + + + + | Weight | 70.2 kg (154 lb 12.2 | 02/17/2019 9:57 AM | | | | oz) | PDT | | + + + + + | Height | - | - | | + + + + + | Body Mass Index | 23.53 | 12/24/2018 9:35 AM | | | | | PST | [...] at Time of Discharge + + + +---------+ + + | Medication | Sig | Dispensed | Refills | Start | End Date | | | | | | Date | | + + + +---------+ + + | atorvastatin | Take by mouth. | | 0 | | | | calcium | | | | | | | (ATORVASTATIN ORAL) | | | | | | + + + +---------+ + + | DULoxetine 30 mg | Take 30 mg by mouth | | 0 | | | | oral capsule,delayed | once daily. | | | | | | release(DR/EC) | | | | | | + + + +---------+ + + | | Take 1 tablet by | | 0 | | | | HYDROcodone-acetamin | mouth every four | | | | | | ophen 10-325 mg oral | hours as needed. Pt | | | | | | tablet | reports taking 2 | | | | | | | tablets twice daily, | | | | | | | morning and evening | | | | | | | and one tablet | | | | | | | during the day | | | | | + + + +---------+ + + | LORazepam 1 mg | Take 1 mg by mouth | | 0 | | | | oral tablet | as needed for | | | | | | | anxiety (and sleep). | | | | | + + + +---------+ + + | prochlorperazine | Take 0.5-1 tablets | 60 | 2 | 12/10/19 | | | 10 mg oral tablet | by mouth four times | tablet | | 19 | | | | daily as needed for | | | | | | | nausea/vomiting. Max | | | | | | | dose: 40 mg/day | | | | | + + + +---------+ + + | propranolol 60 mg | Take 0.5 tablets by | 30 | 1 | 05/22/20 | | | oral tablet | mouth two times | tablet | | 18 | | | | daily. | | | | | + + + +---------+ + + | tamsulosin | Take 1 capsule by | 30 | 5 | 08/21/20 | | | (FLOMAX) 0.4 mg oral | mouth once daily. | capsule | | 18 | | | capsule | | | | | | + + + +---------+ + + documented as of this encounter Progress Notes Mrayjo Ryan RT - 02/17/2019 10:30 AM PDTClean, dry, and intact. Pt denies pain. No signs o f extravasation. Flushed pre & post IV contrast with normal saline. IV left in for infusio n appointment today. documented in this encoun ter Plan of Treatment Not on filedocumented as of this encounter Procedures + +--------+ + + + | Procedure Name | Priori | Date/Time | Associated Diagnosis | Comments | | | ty | | | | + +--------+ + + + | CT CHEST, ABDOMEN | Routin | 02/17/2019 | Malignant neoplasm | Results for this | | AND PELVIS W IV | e | 10:31 AM | of lower third of | procedure are in the | | CONTRAST | | PDT | esophagus (HCC) | results section. | + +--------+ + + + documented in this encounter Results CT CHEST, ABDOMEN AND PELVIS W IV CONTRAST (02/17/2019 10:31 AM PDT) + + | Specimen | + + | | + + + + + | Narrative | Performed At | + + + | EXAM: CT of the chest, abdomen and pelvis WITH intravenous contrast. | [facility] | | HISTORY: Malignant neoplasm of lower third of esophagus | RADIOLOGY VOICE | | COMPARISON: 11/27/2018 TECHNIQUE: CT of the chest, abdomen and | RECOGNITION 2 | | pelvis WITH intravenous contrast. Coronal and sagittal reformats were | | | generated and reviewed. FINDINGS: CHEST: Increase in size of a | | | subpleural nodule of the left lower lobe measuring 5 mm () was | | | punctate previously. Other scattered sub-5 mm nodules are stable. | | | There are mild groundglass changes in the right upper lobe, favored to | | | be infectious. Postsurgical changes of esophagectomy and gastric | | | pull-up. Decreased right pleural effusion. Heart and great vessels | | | are unremarkable. No suspicious thoracic lymphadenopathy. Small | | | pericardial effusion. LIVER: Unchanged small hepatic | | | hypodensities, favored to be benign such as cysts or hemangiomas. | | | BILIARY: Gallbladder is surgically absent. Mild intrahepatic and | | | extrahepatic dilatation similar to prior, likely postcholecystectomy | | | change. PANCREAS: Unremarkable. SPLEEN: Stable splenic | | | hypodensity, likely benign. ADRENALS: Unremarkable. KIDNEYS/URETERS: | | | Unchanged bilateral renal cysts. PELVIC ORGANS/BLADDER: | | | Unremarkable. GI TRACT: Colonic diverticulosis. Large colonic | | | stool burden, otherwise unremarkable. No abnormal bowel wall | | | thickening or dilatation. PERITONEUM: Improvement of | | | nodularity/stranding in the left subphrenic omentum, favored to be | | | postsurgical. Trace free fluid layering in the pelvis. No free air. | | | LYMPH NODES: No lymphadenopathy. VESSELS: Moderate atherosclerotic | | | burden. BONES AND SOFT TISSUES: No suspicious bone lesions. | | | Fat-containing right posterior lumbar hernia as before. | | | IMPRESSION: 1. Since 11/27/2018, mild increase in size of a | | | subcentimeter left lower lobe lung nodule, attention on follow-up. | | | Patchy groundglass opacities of the right upper lobe are most likely | | | infectious. 2. Otherwise no evidence of recurrence or metastatic | | | disease in the chest, abdomen or pelvis. I have personally | | | reviewed the images and, if necessary, edited the report. I agree with | | | the report as now presented. Final signature: Nasreen Lebron MD | | | 02/17/2019 11:24 AM Preliminary: Nasreen Lebron MD | | | Dictation initiated: Nasreen Lebron MD 02/17/2019 10:48 AM | | + + + + + | Procedure Note | + + | Service Account, Radiant Res In Interface - 02/17/2019 11:25 AM PDT EXAM: CT of the | | chest, abdomen and pelvis WITH intravenous contrast. HISTORY: Malignant neoplasm of | | lower third of esophagus COMPARISON: 11/27/2018 TECHNIQUE: CT of the chest, abdomen and | | pelvis WITH intravenous contrast. Coronal and sagittal reformats were generated and | | reviewed. FINDINGS: CHEST: Increase in size of a subpleural nodule of the left lower | | lobe measuring 5 mm () was punctate previously. Other scattered sub-5 mm nodules are | | stable. There are mild groundglass changes in the right upper lobe, favored to be | | infectious.Postsurgical changes of esophagectomy and gastric pull-up.Decreased right | | pleural effusion.Heart and great vessels are unremarkable.No suspicious thoracic | | lymphadenopathy. Small pericardial effusion. LIVER: Unchanged small hepatic | | hypodensities, favored to be benign such as cysts or hemangiomas. BILIARY: Gallbladder | | is surgically absent. Mild intrahepatic and extrahepatic dilatation similar to prior, | | likely postcholecystectomy change.PANCREAS: Unremarkable. SPLEEN: Stable splenic | | hypodensity, likely benign.ADRENALS: Unremarkable.KIDNEYS/URETERS: Unchanged bilateral | | renal cysts.PELVIC ORGANS/BLADDER: Unremarkable. GI TRACT: Colonic diverticulosis. Large | | colonic stool burden, otherwise unremarkable. No abnormal bowel wall thickening or | | dilatation.PERITONEUM: Improvement of nodularity/stranding in the left subphrenic | | omentum, favored to be postsurgical. Trace free fluid layering in the pelvis. No free | | air. LYMPH NODES: No lymphadenopathy.VESSELS: Moderate atherosclerotic burden. BONES AND | | SOFT TISSUES: No suspicious bone lesions. Fat-containing right posterior lumbar hernia | | as before. IMPRESSION: 1. Since 11/27/2018, mild increase in size of a subcentimeter left | | lower lobe lung nodule, attention on follow-up. Patchy groundglass opacities of the | | right upper lobe are most likely infectious.2. Otherwise no evidence of recurrence or | | metastatic disease in the chest, abdomen or pelvis. I have personally reviewed the | | images and, if necessary, edited the report. I agree with the report as now presented. | | Final signature: Nasreen Lebron MD 02/17/2019 11:24 AM Preliminary: Nasreen Lebron MD | | Dictation initiated: Nasreen Lebron MD 02/17/2019 10:48 AM | |GI TRACT: Colonic diverticulosis. Large colonic stool burden, otherwise unremarkable. No ab normal bowel wall thickening or dilatation. | |PERITONEUM: Improvement of nodularity/stranding in the left subphrenic omentum, favored to be postsurgical. Trace free fluid layering in the pelvis. No free air. | | | |LYMPH NODES: No lymphadenopathy. | |VESSELS: Moderate atherosclerotic burden. | | | |BONES AND SOFT TISSUES: No suspicious bone lesions. Fat-containing right posterior lumbar h ernia as before. | | | |IMPRESSION: | | | |1. Since 11/27/2018, mild increase in size of a subcentimeter left lower lobe lung nodule, at tention on follow-up. Patchy groundglass opacities of the right upper lobe are most likely i nfectious. | |2. Otherwise no evidence of recurrence or metastatic disease in the chest, abdomen or pelvi s. | | | |I have personally reviewed the images and, if necessary, edited the report. I agree with e report as now presented. | | | |Final signature: Nasreen Lebron MD 02/17/2019 11:24 AM | |Preliminary: Nasreen Lebron MD | |Dictation initiated: Nasreen Lebron MD 02/17/2019 10:48 AM | + + + +---------+ + + | Performing | Address | City/State/Zipcode | Phone Number | | Organization | | | | + +---------+ + + | [facility] | | | | | VOICE RECOGNITION 2 | | | | + +---------+ + + documented in this encounter Visit Diagnoses + + | Diagnosis | + + | Malignant neoplasm of lower third of esophagus (HCC) Malignant neoplasm of lower | | third of esophagus | + + documented in this encounter Administered Medications + +---------+ +--------+------+------+ | Medication Order | MAR | Action | Dose | Rate | Site | | | Action | Date | | | | + +---------+ +--------+------+------+ | iohexol (OMNIPAQUE) 350 mg | IV Push | 02/18/20 | 100 mL | | | | iodine/mL injection 100 mL 100 | | 19 10:25 | | | | | mL, intravenous, ONCE, 1 dose, | | AM PDT | | | | | 02/17/19 at 1100 | | | | | | + +---------+ +--------+------+------+ +---+---+ | | | +---+---+ documented in this encounter"
--- OUTSIDE RECORDS SUMMARY | ~2019-11-23 | XMS | Encounter Summary ---
Demographics + + + | Address | [address] | | | [place] [address] | + + + | Home Phone | | + + + | Preferred Language | Unknown | + + + | Marital Status | | + + + | Holiness Affiliation | CAT | + + + | Race | White | + + + | Ethnic Group | Not or | + + + Author + + + | Author | [facility] | + + + | Organization | [facility] | + + + | Address | [...] Team Providers + +------+ + | Care Heat Treat Puller Name | Role | Phone | + +------+ + | Christos Olivarez MD | PCP | | + +------+ + Encounter Details +--------+ + + + + | Date | Type | Department | Care Team | Description | +--------+ + + + + | 11/07/ | Energy Operations Vice President | Hematology | Marie Liz, | Malignant neoplasm | | 2018 | | Oncology Study 3303 | [address] | of esophagus, | | | | [address] | [address] | unspecified location | | | | Mailcode: [id number] | [place] [address] | ([facility]) (Primary Dx) | | | | [facility] | [phone] | | | | | and Monika, | | | | | | [facility] | | | | | | Floor [place], [place] | | | | | | [address] | | | | | | [phone] | | | +--------+ + + + [...] | | Former User | | | 02/22/20 | | | | | 18 | [...] on filedocumented as of this encounter Results AMYLASE, PLASMA (11/12/2018 1:17 PM PST) + +-------+ + + + | Component | Value | Ref Range | Performed | Pathologist | | | | | At | Signature | + +-------+ + + + | AMYLASE,KATHY | 49 | 25 - 115 U/L | [facility] [...] [facility] | [address] | [place] [address] | | | SERVICES, CORE | [address] | | | + + + + + LIPASE, PLASMA (11/12/2018 1:17 PM PST) + +-------+ + + + | Component | Value | Ref Range | Performed | Pathologist | | | | | At | Signature | + +-------+ + + + | LIPASE | 320 | 152 - 353 U/L | [facility] [...] [facility] | [address] | [place] [address] | | | SERVICES, CORE | [address] | | | + + + + + LDH TOTAL, PLASMA (11/12/2018 1:17 PM PST) + +---------+ + + + | Component | Value | Ref Range | Performed | Pathologist | | | | | At | Signature | + +---------+ + + + | LD TOTAL, | 188 | <=250 U/L | [facility] | | [...] + + + + + | [facility] | [address] | [place] [address] | | | SERVICES, CORE | [address] | | | + + + + + documented in this encounter Visit Diagnoses + + | Diagnosis | + + | Malignant neoplasm of esophagus, unspecified location (HCC) - Primary | + + documented in this encounter"
--- OUTSIDE RECORDS SUMMARY | ~2019-11-23 | XMS | Encounter Summary ---
Demographics + + + | Address | [address] | | | [place] [address] | + + + | Home Phone | | + + + | Preferred Language | Unknown | + + + | Marital Status | | + + + | Sabianist Affiliation | CAT | + + + | Race | White | + + + | Ethnic Group | Not or | + + + Author + + + | Author | [facility] | + + + | Organization | [facility] | + + + | Address [...] Team Providers + +------+ + | Care Wire Taper Name | Role | Phone | + +------+ + | Christos Olivarez MD | PCP | | + +------+ + Encounter Details +--------+ + + + + | Date | Type | Department | Care Team | Description | +--------+ + + + + | 05/20/ | Pharmacy | Outpatient Retail | | | | 2017 | Visit | [facility] | | | | | | [address] | | | | | | [address] [place], [place] | | | | | | [address] | | | | | | [phone] | | | +--------+ + + + [...]
--- OUTSIDE RECORDS SUMMARY | ~2019-11-23 | XMS | Encounter Summary ---
Demographics + + + | Address | [address] | | | [place] [address] | + + + | Home Phone | | + + + | Preferred Language | Unknown | + + + | Marital Status | | + + + | Jehovah'S Witness Affiliation | CAT | + + + | Race | White | + + + | Ethnic Group | Not or | + + + Author + + + | Author | [facility] | + + + | Organization | [facility] | + + + | [...] Team Providers + +------+ + | Care Galley Worker Name | Role | Phone | + +------+ + | Christos Olivarez MD | PCP | | + +------+ + Encounter Details +--------+ + + + + | Date | Type | Department | Care Team | Description | +--------+ + + + + | 01/16/ | Aviation Safety Inspector | Hematology | Krunal Godoy, | | | 2019 | | Oncology Study 3303 | ,PhD [address] | | | | | [address] | [place], [place] | | | | | Mailcode: [facility] | [address] | | | | | [facility] | [phone] | | | | | and Healing, | | | | | | [facility] | | | | | | Floor [place], [place] | | | | | | [address] | | | | | | [phone] | | | +--------+ + + + [...]
--- OUTSIDE RECORDS SUMMARY | ~2019-11-23 | XMS | Encounter Summary ---
Demographics + + + | Address | [address] | | | [place] [address] | + + + | Home Phone | | + + + | Preferred Language | Unknown | + + + | Marital Status | | + + + | Mormon Affiliation | CAT | + + + | Race | White | + + + | Ethnic Group | Not or | + + + Author + + + | Author | [facility] | + + + | Organization | [facility] | + + + | Address [...] Team Providers + +------+ + | Care Fire Extinguisher Inspector Name | Role | Phone | + +------+ + | Christos Olivarez MD | PCP | | + +------+ + Encounter Details +--------+ + + + + | Date | Type | Department | Care Team | Description | +--------+ + + + + | 07/22/ | Procedure | Diagnostic Imaging | | | | 2019 | Pass | Services at [facility] | | | | | | [address] | | | | | | Katherine French Mailcode: | | | | | | [address] [facility] | | | | | | [place], [place] | | | | | | [address] | | | | | | [phone] | | | +--------+ + + + [...]
--- OUTSIDE RECORDS SUMMARY | ~2019-11-23 | XMS | Encounter Summary ---
Demographics + + + | Address | [address] | | | [place] [address] | + + + | Home Phone | | + + + | Preferred Language | Unknown | + + + | Marital Status | | + + + | Zoroastrian Affiliation | CAT | + + + | Race | White | + + + | Ethnic Group | Not or | + + + Author + + + | Author | [facility] | + + + | Organization | [facility] | + + + | Address | [...] Team Providers + +------+ + | Care Professor Of Apologetics Name | Role | Phone | + +------+ + | Christos Olivarez MD | PCP | | + +------+ + Reason for Visit + + + | Reason | Comments | + + + | Treatment Planning | | + + + Encounter Details +--------+ + + + + | Date | Type | Department | Care Team | Description | +--------+ + + + + | 07/12/ | Telephone | [facility] | Eleonora Ybarra, | Treatment Planning | | 2018 | | Center at [facility] [address] | MD [address] | | | | | [address] | Ave [place], [place] | | | | | Mailcode: [place] | [address] | | | | | [facility] and | [phone] | | | | | [facility] [address] | | | | | | [place], [place] | | | | | | [address] | | | | | | [phone] | | | +--------+ + + + [...]
--- OUTSIDE RECORDS SUMMARY | ~2019-11-23 | XMS | Encounter Summary ---
Demographics + + + | Address | [address] | | | [place] [address] | + + + | Home Phone | | + + + | Preferred Language | Unknown | + + + | Marital Status | | + + + | Confucianist Affiliation | CAT | + + + | Race | White | + + + | Ethnic Group | Not or | + + + Author + + + | Author | [facility] | + + + | Organization | [facility] | + + + | Address [...] Team Providers + +------+ + | Care Sheriff Sergeant Name | Role | Phone | + +------+ + | Christos Olivarez MD | PCP | | + +------+ + Reason for Visit + + + | Reason | Comments | + + + | Telephone follow-up | courtesy call-cycle 1 nivolumab | + + + Encounter Details +--------+ + + + + | Date | Type | Department | Care Team | Description | +--------+ + + + + | 09/05/ | Documentati | Hematology/Medical | Marie Liz, | Telephone follow-up | | 2018 | on | Oncology at [place] | [address] | (courtesy call-cycle | | | | for Health & Healing | [address] | 1 nivolumab) | | | | [address] | [place] [address] | | | | | Mailcode: [place] | [phone] | | | | | for Health and | | | | | | Healing, [address] | | | | | | [place], [place] | | | | | | [address] | | | | | | [phone] | | | +--------+ + + + [...]
--- OUTSIDE RECORDS SUMMARY | ~2019-11-23 | XMS | Encounter Summary ---
Demographics + + + | Address | [address] | | | [place] [address] | + + + | Home Phone | | + + + | Preferred Language | Unknown | + + + | Marital Status | | + + + | Buddhist Affiliation | CAT | + + + | Race | White | + + + | Ethnic Group | Not or | + + + Author + + + | Author | [facility] | + + + | Organization | [facility] | + + + | Address [...] Team Providers + +------+ + | Care Pharmacy Coordinator Name | Role | Phone | + +------+ + | Christos Olivarez MD | PCP | | + +------+ + Encounter Details +--------+ + + + + | Date | Type | Department | Care Team | Description | +--------+ + + + + | 05/17/ | Pharmacy | Outpatient Retail | | | | 2017 | Visit | Clinic Pharmacy | | | | | | [address] | | | | | | [address] [place], [place] | | | | | | [address] | | | | | | [phone] | | | +--------+ + + + [...]
--- OUTSIDE RECORDS SUMMARY | ~2019-11-23 | XMS | Encounter Summary ---
Demographics + + + | Address | [address] | | | [place] [address] | + + + | Home Phone [...] | Author | [facility] | + + + | Organization | [facility] | + + + | Address | [...] Team Providers + +------+ + | Care Vehicle Service Agent Name | Role | Phone | + [...] | [address] | [address] [facility] | | | | | lower third | Veterans | [facility] | | | | | of esophagus | [facility] | Rd | | | | | Esophagus | Road | [facility] [place] | | | | | Ca | [facility] [place] | [address] | | | | | Procedures | [address] | Phone: | | | | | Consult, | Phone: | [phone] | | | | | Sage Wilkins | [phone] | Fax: | | | | | | Fax: | [phone] | | | | | | [phone] | | +--------+--------+ + + + + Encounter Details +--------+ + + + + | Date | Type | Department | Care Team | Description | +--------+ + + + + | 01/21/ | Hospital | Radiation Oncology | | | | 2017 | Encounter | at [facility] [address] | | | | | | [place] | | | | | | [id number] [facility] | | | | | | HOSPITAL [place], | | | | | | [place] [address] | | | | | | [phone] | | | +--------+ + + + [...]
--- OUTSIDE RECORDS SUMMARY | ~2019-11-23 | XMS | Encounter Summary ---
Demographics + + + | Address | [address] | | | [place] [address] | + + + | Home Phone | | + + + | Preferred Language | Unknown | + + + | Marital Status | | + + + | Amish Affiliation | CAT | + + + | Race | White | + + + | Ethnic Group | Not or | + + + Author + + + | Author | [facility] | + + + | Organization | [facility] | + + + | Address [...] Team Providers + +------+ + | Care Messaging Architect Name | Role | Phone | + [...] | [address] | [address] [facility] | | | | | lower third | Veterans | [facility] | | | | | of esophagus | [facility] | Rd | | | | | Esophagus | Road | [place], [place] | | | | | Ca | [facility] [place] | [address] | | | | | Procedures | [address] | Phone: | | | | | Consult, | Phone: | [phone] | | | | | Claudette F/U | [phone] | Fax: | | | | | | Fax: | [phone] | | | | | | [phone] | | +--------+--------+ + + + + Encounter Details +--------+---------+ + + + | Date | Type | Department | Care Team | Description | +--------+---------+ + + + | 03/05/ | Office | Radiation Oncology | Suzanne Barrera, | Malignant neoplasm | | 2018 | Visit | at [facility] [address] | [address] | of esophagus, | | | | [place] | [address] | unspecified location | | | | [id number] [facility] | [facility] [place] | (HCC) (Primary Dx) | | | | HOSPITAL [place], | [address] | | | | | [place] [address] | [phone] | | | | | [phone] | | | +--------+---------+ + + + [...] + + + | Blood Pressure | 109/69 | 03/05/2018 10:30 AM | | | | | PDT | | + + + + + | Pulse | 81 | 03/05/2018 10:30 AM | | | | | PDT | | + + + + + | Temperature | 36.5 C (97.7 F) | 03/05/2018 10:30 AM | | | | | PDT | | + + + + + | Respiratory Rate | 18 | 03/05/2018 10:30 AM | | | | | PDT | | + + + + + | Oxygen Saturation | 100% | 03/05/2018 10:30 AM | Room Air | | | | PDT | | + + + + + | Inhaled Oxygen | - | - | | | Concentration | | | | + + + + + | Weight | 77.1 kg (170 lb) | 03/05/2018 10:30 AM | | | | | PDT | | + + + + + | Height | - | - | | + + + + + | Body Mass Index | 25.85 | 12/06/2017 10:48 AM | | | | | PST | | + + + + + documented in this encounter Progress Notes Suzanne Barrera MD - 03/05/2018 10:30 AM PDTFormatting of this note might be different f rom the original. Radiation Oncology Follow Up Note Identification: 67 y.o. male with [id number] esophageal adenocarcinoma (7 LN) 36-44cm from the incisors, 2.4cm thick. Upon gastric-deconditioning surgery and J-tube placement, the gastri c/esophageal tumor was very desmoplastic and fibrotic, with concerns of a challenging surgic al resection, but he is still a surgical candidate. He was treated to 45 Gy in 25 fractions with a SIB to the ITV to 50 Gy in 25 fractions with concurrent carbo/taxol completed 01/30/18. . Subjective: Jacob Sapp returns today for a follow up visit with his and sisters. He r eports slowly recovering. Able to swallow some foods, but still largely dependent on J-tube . Very fatigued and deconditioned. Mild abdominal pain. Motivated for surgery, but also understands that he needs to have an evaluation by general surgery regarding his performance status and candidacy. He is depressed, started on remeron by medical oncology. Current Outpatient Prescriptions Medication Sig ASCORBATE CALCIUM (HAJA-C ORAL) Take by mouth. CYCLOBENZAPRINE HCL (CYCLOBENZAPRINE ORAL) Take by mouth three times daily as needed fo r muscle spasms (neck). Do not use longer than 2-3 weeks. Indications: neck spasms FISH OIL-DHA-EPA ORAL Take by mouth. HYDROcodone-acetaminophen 5-325 mg oral tablet Take 1 tablet by mouth every four hours as needed. Mgolsyjyn-Lrgvkmacw-Oz-Mag-Sim 931-16-807-40 mg/30 mL mucous membrane mouthwash Take 15 mL by mouth four times daily as needed. LORazepam 1 mg oral tablet Take 1 mg by mouth as needed for anxiety (and sleep). LOVASTATIN ORAL Take by mouth. multivitamin oral tablet Take 1 tablet by mouth once daily. omeprazole 10 mg oral capsule,delayed release(DR/EC) Take 10 mg by mouth once daily. ondansetron 8 mg oral tablet Take 8 mg by mouth every six hours as needed for nausea/vo miting. propranolol ER (INDERAL LA) 60 mg oral capsule,extended release 24 hr Take 60 mg by presley th once daily. PSEUDOEPHEDRINE HCL (SUDAFED ORAL) Take by mouth. No current facility-administered medications for this visit. Objective: General: Well developed well nourished male in no acute distress ECOG PS: 1-2 VITALS: BP 109/69 | Pulse 81 | Temp (Src) 36.5 C (97.7 F) (Oral) | RR 18 | Wt 77.1 kg ( 170 lb) | SpO2 100[Room Air[% | BMI 25.85 kg/(m^2) Pain Score: 0 HEENT: Normocephalic, atraumati Lymph: No cervical, supraclavicular, axillary adenopathy Chest: Clear to auscultation bilaterally CV: RRR Abd: soft, NTND, no masses Ext: no edema Neuro: nonfocal Lab/Imaging: Outside PET/CT on 02/26/18 reviewed by me personally. Decreased FDG avidity of distal esophag eal lesion, no distant metastases or sandra disease Assessment/Plan: Restaging PET/CT negative for metastatic disease. Still very deconditioned but slowly sahly vering following definitive doses of neoadj chemoRT. To see surgery on 03/19 to discuss surgical candidacy. Follow up with us in PRN following possible surgery. We will discuss his case at our multi -D tumor board following surgical eval. SUZANNE BARRERA MD Leif Tapia MA - 03/05/2018 10:30 AM PDTPt presents today for a follow up visit. Pt is AOX3, walks with a steady gait, accompanied by 3 [address] members[address] Will see Dr. Sanchez. Vital signs as noted in EPI C. documented in this en counter Plan of Treatment Not on filedocumented as of this encounter Visit Diagnoses + + | Diagnosis | + + | Malignant neoplasm of esophagus, unspecified location (HCC) - Primary | + + documented in this encounter"
--- OUTSIDE RECORDS SUMMARY | ~2019-11-23 | XMS | Encounter Summary ---
Demographics + + + | Address | [address] | | | [place] [address] | + + + | Home Phone | | + + + | Preferred Language | Unknown | + + + | Marital Status | | + + + | Worship Affiliation | CAT | + + + | Race | White | + + + | Ethnic Group | Not or | + + + Author + + + | Author | [facility] | + + + | Organization | [facility] | + + + | [...] Team Providers + +------+ + | Care Operations Team Leader Name | Role | Phone | + +------+ + | Luis Leiva DO | PCP | | + +------+ + Reason for Visit + + + | Reason | Comments | + + + | Telephone follow-up | 11/14/17 | + + + Encounter Details +--------+ + + + + | Date | Type | Department | Care Team | Description | +--------+ + + + + | 11/15/ | Telephone | Endoscopic | Dakota Rivera, | Telephone follow-up | | 2017 | | Procedural Unit at | [address] | (11/14/17) | | | | [address] | [facility] | | | | | [address] | [place], [place] | | | | | Mailcode: [id number] | [address] | | | | | [facility] | [phone] | | | | | [address] [place], [place] | | | | | | [address] | | | | | | [phone] | | | +--------+ + + + [...]
--- OUTSIDE RECORDS SUMMARY | ~2019-11-23 | XMS | Encounter Summary ---
Demographics + + + | Address | [address] | | | [place] [address] | + + + | Home Phone | | + + + | Preferred Language | Unknown | + + + | Marital Status | | + + + | Protestant Affiliation | CAT | + + + | Race | White | + + + | Ethnic Group | Not or | + + + Author + + + | Author | [facility] | + + + | Organization | [facility] | + + + | Address [...] Team Providers + +------+ + | Care Naval Designer Name | Role | Phone | + [...] | [address] | [address] [facility] | | | | | lower third | Veterans | [facility] | | | | | of esophagus | [facility] | Rd | | | | | Esophagus | Road | [facility] [place] | | | | | Ca | [facility] [place] | [address] | | | | | Procedures | [address] | Phone: | | | | | Consult, | Phone: | [phone] | | | | | Sage Wilkins | [phone] | Fax: | | | | | | Fax: | [phone] | | | | | | [phone] | | +--------+--------+ + + + + Encounter Details +--------+ + + + + | Date | Type | Department | Care Team | Description | +--------+ + + + + | 12/26/ | Hospital | Radiation Oncology | | | | 2017 | Encounter | at [facility] [address] | | | | | | [place] | | | | | | [id number] [facility] | | | | | | HOSPITAL [place], | | | | | | [place] [address] | | | | | | [phone] | | | +--------+ + + + [...]
--- OUTSIDE RECORDS SUMMARY | ~2019-11-23 | XMS | Encounter Summary ---
Demographics + + + | Address | [address] | | | [place] [address] | + + + | Home Phone | | + + + | Preferred Language | Unknown | + + + | Marital Status | | + + + | Jew Affiliation | CAT | + + + | Race | White | + + + | Ethnic Group | Not or | + + + Author + + + | Author | [facility] | + + + | Organization | [facility] | + + + | Address | [...] Team Providers + +------+ + | Care Journalism Teacher Name | Role | Phone | + +------+ + | Christos Olivarez MD | PCP | | + +------+ + Encounter Details +--------+ + + + + | Date | Type | Department | Care Team | Description | +--------+ + + + + | 11/12/ | Inside | Endoscopic | Daija Moyer, | | | 2017 | Referral | Procedural Unit at | [address] | | | | Order | Nory Monreal [address] | | | | | [address] | [place], [place] | | | | | Mailcode: UHN83 | [address] | | | | | [address]rig[address] | [phone] | | | | | [address] [place], [place] | | | | | | [address] | | | | | | [phone] | | | +--------+ + + + + Social History + +-------+ +--------+------+ | Tobacco Use | Types | Packs/Day | Years | Date | | | | | Used | | + +-------+ +--------+------+ | Never Assessed | | | | | + +-------+ +--------+------+ + + + | Sex Assigned at [...] on filedocumented as of this encounter Results [facility] (11/14/2017 4:40 PM PST) + + | Specimen | + + | | + + + + + | Narrative | Performed At | + + + | MRN: | [facility] | | [id number] Date: 11/14/2017Patient Name: Jacob Carlos #: | ENDOSCOPY | | [id number] of : 1950SN: [id number] Type: | | | AmbulatoryRoom: GI 2Procedure: Upper EUSIndications: | | | Pre-treatment staging of esophageal adenocarcinomaProviders: | | | FRANC LI MD (Doctor), MERCEDES TABOR RN (Nurse), | | | JUNE SLADE RN (Childcare Teacher), | | | SHASHI HERNANDEZ (Childcare Teacher)Referring | | | MD: BRAXTON BECERRAequesting Provider: Medicines: | | | Fentanyl 100 micrograms IV, Midazolam 10 mg | | | IVComplications: No immediate complications.Procedure: | | | Pre-Anesthesia Assessment: - | | | Pre-procedure physical examination revealed no | | | contraindications to sedation. | | | - Airway Examination: Mallampati Class II (the uvula but | | | not tonsillar pillars visualized). | | | - ASA Grade Assessment: II - A patient with mild | | | systemic disease. | | | - After reviewing the risks and benefits, the patient | | | was deemed in satisfactory condition to undergo the | | | procedure. | | | - The anesthesia plan was to use moderate | | | sedation/analgesia (conscious sedation). | | | - Immediately prior to administration of medications, | | | the patient was re-assessed for adequacy to | | | receive sedatives. | | | Prior to the procedure, a History and Physical with | | | airway assessment was performed (see patient | | | record), and patient medications and | | | allergies were reviewed. The risks and | | | benefits of the procedure and the sedation | | | options and risks were discussed. All questions were | | | answered and informed consent was obtained. After | | | reviewing the risks and benefits, the | | | patient was deemed in satisfactory | | | condition to undergo the procedure. | | | Immediately prior to administration of medications, the | | | patient was re-assessed for adequacy to receive | | | sedatives. The heart rate, respiratory | | | rate, oxygen saturations, blood | | | pressure, adequacy of pulmonary | | | ventilation, and response to care were monitored | | | throughout the procedure. The physical status of the | | | patient was re-assessed after the procedure. | | | The Olympus [id number] Endoscope #[id number] | | | was introduced through the mouth, and | | | advanced to the second part of | | | duodenum. The Olympus [id number] Radial Echoendoscope | | | #[id number] was introduced through the mouth, and | | | advanced to the second part of | | | duodenum. The upper EUS was | | | accomplished without difficulty. The patient tolerated | | | the procedure fairly well.Estimated Blood Loss: | | | Estimated blood loss was minimal.Findings: Endoscopic Finding : | | | A large, fungating and ulcerating mass with bleeding was found | | | in the lower third of the esophagus extending distally into the | | | cardia, 36 to 44 cm from the incisors (the GEJ was at 40 cm | | | from the incisors). The mass was non-obstructing and | | | circumferential. The exam of the stomach was otherwise normal. | | | The examined duodenum was normal. Endosonographic Finding | | | : A hypoechoic mass was found in the llower third of the | | | esophagus, extending into the cardia. The mass was encountered | | | at 36 cm from the incisors and extended to 44 cm. The lesion | | | was partially circumferential (involving two-thirds of the | | | lumen circumference). The endosonographic borders were | | | irregular. The mass measured up to 24 mm in thickness. There | | | was sonographic evidence suggesting invasion into the adventitia | | | (Layer 5). Two abnormal lymph nodes were visualized in the | | | gastrohepatic ligament (level 18) with the ultrasound probe | | | located 40 cm from the incisors. The largest measured 12 mm in | | | maximal cross-sectional diameter. The nodes were round, | | | hypoechoic and had well defined margins. Three enlarged lymph | | | nodes were visualized in the celiac region (level 20) with the | | | ultrasound probe located 42 cm from the incisors. The largest | | | measured 22 mm by 14 mm in maximal cross-sectional diameter. The | | | nodes were round, hypoechoic and had well defined margins. | | | Two abnormal lymph nodes were visualized in the lower paraesophageal | | | mediastinum (level 8L) with the ultrasound probe located 36 cm | | | from the incisors. The largest measured 9 mm by 8 mm in maximal | | | cross-sectional diameter. The nodes were round, hypoechoic and | | | had well defined margins.Moderate Sedation: Moderate | | | (conscious) sedation was administered by the endoscopy nurse | | | and supervised by the endoscopist. The following parameters were | | | monitored: oxygen saturation, heart rate, blood pressure, and | | | response to care. 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 This was staged T3 N3 Mx by endosonographic | | | criteria. - Two | | | abnormal lymph nodes were visualized in the | | | gastrohepatic ligament (level 18), three enlarged lymph | | | nodes were visualized in the celiac region | | | (level 20), and two abnormal lymph | | | nodes were visualized in the lower | | | paraesophageal mediastinum (level 8L).Recommendation: - | | | Discharge patient to home (ambulatory). | | | - Return to referring physician as previously scheduled. | | | - The findings and recommendations were discussed | | | with the patient and their | | | spouse.Attending Participation: I personally performed the | | | entire procedure.HANNAH Harris MD11/14/2017 | | | 5:56:27 [facility] report has been signed electronically.Number of | | | Addenda: 0Note Initiated On: 11/14/2017 4:40 [facility] Letter to: | | | BRYANT PAINTING DO | | |FRANC LI MD | | |11/14/2017 5:56:27 PM | | |This report has been signed electronically. 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
--- OUTSIDE RECORDS SUMMARY | ~2019-11-23 | XMS | Encounter Summary ---
Demographics + + + | Address | [address] | | | [place] [address] | + + + | Home Phone | | + + + | Preferred Language | Unknown | + + + | Marital Status | | + + + | Protestant Affiliation | CAT | + + + | Race | White | + + + | Ethnic Group | Not or | + + + Author + + + | Author | [facility] | + + + | Organization | [facility] | + + + | Address [...] Team Providers + +------+ + | Care Ore Digger Name | Role | Phone | + +------+ + | Christos Olivarez MD | PCP | | + +------+ + Reason for Visit + + + | Reason | Comments | + + + | Chemotherapy | INV Nivolumab | + + + Other (Routine) +--------+---------+ + + + + | [...] | | | | | Procedures | [place], [place] | Health and | | | | | [place] | [address] | Healing, | | | | | SERVICES | Phone: | [address] | | | | | PROVIDED | [phone] | [place], [place] | | | | | PART OF [place] | Fax: | [address] | | | | | INJ | [phone] | Phone: | | | | | NIVOLUMAB 1 | | [phone] | | | | | MG Study | | Fax: | | | | | IRB: [id number] | | [phone] | | | | | Study Title: | | | | | | | A | | | | | | [...] +--------+---------+ + + + + Encounter Details +--------+ + + + + | Date | Type | Department | Care Team | Description | +--------+ + + + + | 03/19/ | Hospital | Hematology/Medical | Onc, Gen [address] | | | 2019 | Encounter | Oncology at [facility] | [address] [place], | | | | | [address] | [place] [address] | | | | | Mailcode: [place] | | | | | | for Health and | | | | | | [facility], [facility] [address] | | | | | | [place], [place] | | | | | | [address] | | | | | | [phone] | | | +--------+ + + + [...] daily. | | | | | | release(/EC) | | | | | | + [...] 0.5-1 tablets | 60 | 2 | // | | | 10 mg oral tablet [...] documented as of this encounter Progress Notes Rachael Olivarez RN - 03/19/2019 11:12 AM PDTChemotherapy Nurse Note Name: Jacob Sapp Date: 03/19/2019 Physician: Walt Allergies: Jacob is allergic to codeine. Diagnosis: Esophageal CA Narrative: Patient here for INV Nivo. PIV in place from starter RN appointment. Decision made by Dr. Godoy to hold treatment for today, and recheck labs in 1 week with infusion given at that time if parameters are met. Michael zheng verbalizes understanding of this plan. PIV d/c'd and intact. Pt Alert & Oriented x3 an d No acute distress and discharged ambulatory. Refer to MAR and Onc Lines and Transfusions doc flowsheet for treatment details. 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
--- OUTSIDE RECORDS SUMMARY | ~2019-11-23 | XMS | Encounter Summary ---
Demographics + + + | Address | [address] | | | [place] [address] | + + + | Home Phone | | + + + | Preferred Language | Unknown | + + + | Marital Status | | + + + | Restorationist Affiliation | CAT | + + + | Race | White | + + + | Ethnic Group | Not or | + + + Author + + + | Author | [facility] | + + + | Organization | [facility] | + + + | [...] Team Providers + +------+ + | Care Network Associate Name | Role | Phone | + +------+ + | Christos Olivarez MD | PCP | | + +------+ + Reason for Visit + + + | Reason | Comments | + + + | Esophageal cancer | | + + + Encounter Details +--------+ + + + + | Date | Type | Department | Care Team | Description | +--------+ + + + + | 09/26/ | Director Digital Advertising | Cancer Genetics at | Marie Liz, | Malignant neoplasm | | 2018 | | [facility] | MD [address] | of lower third of | | | | [address] | [address] | esophagus (HCC) | | | | [place] for [facility] | [place] [address] | (Primary Dx) | | | | and Healing, | [phone] | | | | | [address] | | | | | | [place], [place] | | | | | | [address] | | | | | | [phone] | | | +--------+ + + + [...] as of this encounter Plan of Treatment + + +--------+ + + | Name | Type | Priori | Associated Diagnoses | Order Schedule | | | | ty | | | + + +--------+ + + | RESEARCH ADDITIONAL | Research | Routin | Malignant neoplasm | Expected: 10/01/2018 | | TUBES | Blood Draw | e | of lower third of | (Approximate), | | | | | esophagus (HCC) | Expires: 10/26/2019 | + + +--------+ + + documented as of this encounter Visit Diagnoses + + | Diagnosis | + + | 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
--- OUTSIDE RECORDS SUMMARY | ~2019-11-23 | XMS | Encounter Summary ---
Demographics + + + | Address | [address] | | | [place] [address] | + + + | Home Phone | | + + + | Preferred Language | Unknown | + + + | Marital Status | | + + + | Anglican Affiliation | CAT | + + + | Race | White | + + + | Ethnic Group | Not or | + + + Author + + + | Author | [facility] | + + + | Organization | [facility] | + + + | [...] Team Providers + +------+ + | Care Pattern Drafter Name | Role | Phone | + +------+ + | Christos Olivarez MD | PCP | | + +------+ + Encounter Details +--------+ + + + + | Date | Type | Department | Care Team | Description | +--------+ + + + + | 11/07/ | Customer Loyalty Representative | Hematology | Marie Liz, | Malignant neoplasm | | 2018 | | Oncology Study [address] | [address] | of esophagus, | | | | [address] | [address] | unspecified location | | | | Mailcode: CH7M | [place] [address] | ([facility]) (Primary Dx) | | | | [facility] | [phone] | | | | | and Monika, | | | | | | [facility] | | | | | | Floor [place], [place] | | | | | | [address] | | | | | | [phone] | | | +--------+ + + + [...] [facility] | [address] | [place] [address] | | | SERVICES, CORE | PARK [...] [facility] | [address] | [place] [address] | | | SERVICES, CORE | PARK [...] + + + + + | [facility] [employer] | [address] | [place] [address] | | | SERVICES, CORE | [address] | | | + + + + + documented in this encounter Visit Diagnoses + + | Diagnosis | + + | Malignant neoplasm of esophagus, unspecified location (HCC) - Primary | + + documented in this encounter"
--- OUTSIDE RECORDS SUMMARY | ~2019-11-23 | XMS | Encounter Summary ---
Demographics + + + | Address | [address] | | | [place] [address] | + + + | Home Phone | | + + + | Preferred Language | Unknown | + + + | Marital Status | | + + + | Restorationist Affiliation | CAT | + + + | Race | White | + + + | Ethnic Group | Not or | + + + Author + + + | Author | [facility] | + + + | Organization | [facility] | + + + | Address [...] Team Providers + +------+ + | Care Cloud Security Architect Name | Role | Phone | + +------+ + | Christos Olivarez MD | PCP | | + +------+ + Encounter Details +--------+ + + + + | Date | Type | Department | Care Team | Description | +--------+ + + + + | 12/23/ | Extension Professor | Hematology/Medical | Krunal Godoy, | | | 2019 | | Oncology at [place] | ,PhD [address] | | | | | for Health & Healing | [place], [place] | | | | | [address] | [address] | | | | | Mailcode: [place] | [phone] | | | | | for Health and | | | | | | [facility], [facility] 2 | | | | | | [place], [place] | | | | | | [address] | | | | | | [phone] | | | +--------+ + + + [...]
--- OUTSIDE RECORDS SUMMARY | ~2019-11-23 | XMS | Encounter Summary ---
Demographics + + + | Address | [address] | | | [place] [address] | + + + | Home Phone | | + + + | Preferred Language | Unknown | + + + | Marital Status | | + + + | Judaism Affiliation | CAT | + + + | Race | White | + + + | Ethnic Group | Not or | + + + Author + + + | Author | [facility] | + + + | Organization | [facility] | + + + | Address | [...] Team Providers + +------+ + | Care Security Alarm Technician Name | Role | Phone | + +------+ + | Christos Olivarez MD | PCP | | + +------+ + Reason for Visit + + + | Reason | Comments | + + + | Medical nutrition | | | therapy | | + + + Encounter Details +--------+ + + + + | Date | Type | Department | Care Team | Description | +--------+ + + + + | 11/12/ | Documentati | Hematology/Medical | Lorenza Ramachandran, ILANA | Medical nutrition | | 2018 | on | Oncology at [facility] | [address] | therapy | | | | [address] | [place], [place] | | | | | Mailcode: [place] | [address] | | | | | for Health and | [phone] | | | | | [facility], [facility] [address] | | | | | | [place], [place] | | | | | | [address] | | | | | | [phone] | | | +--------+ + + + [...]
--- OUTSIDE RECORDS SUMMARY | ~2019-11-23 | XMS | Encounter Summary ---
Demographics + + + | Address | [address] | | | [place] [address] | + + + | Home Phone | | + + + | Preferred Language | Unknown | + + + | Marital Status | | + + + | Temple Affiliation | CAT | + + + | Race | White | + + + | Ethnic Group | Not or | + + + Author + + + | Author | [facility] | + + + | Organization | [facility] | + + + | Address [...] Team Providers + +------+ + | Care Music Internship Name | Role | Phone | + +------+ + | Christos Olivarez MD | PCP | | + +------+ + Encounter Details +--------+ + + + + | Date | Type | Department | Care Team | Description | +--------+ + + + + | 02/04/ | Procedure | Diagnostic Imaging | | | | 2019 | Pass | Services at [facility] | | | | | | [address] | | | | | | Katherine French Mailcode: | | | | | | [address] [facility] | | | | | | [place], [place] | | | | | | [address] | | | | | | [phone] | | | +--------+ + + + [...]
--- OUTSIDE RECORDS SUMMARY | ~2019-11-23 | XMS | Encounter Summary ---
Demographics + + + | Address | [address] | | | [place] [address] | + + + | Home Phone | | + + + | Preferred Language | Unknown | + + + | Marital Status | | + + + | Tenriism Affiliation | CAT | + + + [...] Team Providers + +------+ + | Care Power Digger Operator Name | Role | Phone | [...] [address] | [address] [facility] | | | | | lower third | [facility] | [facility] | | | | | of esophagus | [facility] | Rd | | | | | Esophagus | Road | [facility] [place] | | | | | Ca | [facility] [place] | [address] | | | | | Procedures | [address] | Phone: | | | | | Consult, | Phone: | [phone] | | | | | Sage Wilkins | [phone] | Fax: | | | | | | Fax: | [phone] | | | | | | [phone] | | +--------+--------+ + + + + Encounter Details +--------+ + + + + | Date | Type | Department | Care Team | Description | +--------+ + + + + | 01/28/ | Hospital | Radiation Oncology | | | | 2018 | Encounter | at [facility] [address] | | | | | | [place] | | | | | | [id number] [facility] | | | | | | HOSPITAL [place], | | | | | | [place] [address] | | | | | | [phone] | | | +--------+ + + + [...]
--- OUTSIDE RECORDS SUMMARY | ~2019-11-23 | XMS | Encounter Summary ---
Demographics + + + | Address | [address] | | | [place] [address] | + + + | Home Phone | | + + + | Preferred Language | Unknown | + + + | Marital Status | | + + + | Adventism Affiliation | CAT | + + + | Race | White | + + + | Ethnic Group | Not or | + + + Author + + + | Author | [facility] | + + + | Organization | [facility] | + + + | [...] Team Providers + +------+ + | Care Electrical Prospecting Engineer Name | Role | Phone | + +------+ + | Christos Olivarez MD | PCP | | + +------+ + Encounter Details +--------+ + + + + | Date | Type | Department | Care Team | Description | +--------+ + + + + | 04/10/ | Pharmacy | Specialty Pharmacy | | | | 2017 | Visit | Services [address] | | | [address] | | | | | | [place] | | | | | | [address] | | | | | | [phone] | | | +--------+ + + + [...]
--- OUTSIDE RECORDS SUMMARY | ~2019-11-23 | XMS | Encounter Summary ---
Demographics + + + | Address | [address] | | | [place] [address] | + + + | Home Phone | | + + + | Preferred Language | Unknown | + + + | Marital Status | | + + + | Spiritism Affiliation | CAT | + + + [...] Team Providers + +------+ + | Care Aviation Safety Technician Name | Role | Phone | + +------+ + | Christos Olivarez MD | PCP | | + +------+ + Encounter Details +--------+ + + + + | Date | Type | Department | Care Team | Description | +--------+ + + + + | 12/05/ | Inspector Open Die | Hematology | Krunal Godoy, | Malignant neoplasm | | 2019 | | Oncology Study [address] | ,PhD [address] | of esophagus, | | | [address] | [place], [place] | unspecified location | | | | Mailcode: CH7M | [address] | ([facility]) (Primary Dx) | | | | [facility] | [phone] | | | | | and [address], | | | | | | [facility] | | | | | | Floor [place], [place] | | | | | | [address] | | | | | | [phone] | | | +--------+ + + + [...] as of this encounter Results LIPASE, PLASMA (12/10/2018 1:22 PM PST) + +---------+ + + + | Component | Value | Ref Range | Performed | Pathologist | | | | | At | Signature | + +---------+ + + + | LIPASE | 104 (L) | 152 - 353 U/L | [...] [facility] | [address] | [place] [address] | | | SERVICES, CORE | [address] | | | + + + + + AMYLASE, PLASMA (12/10/2018 1:22 PM PST) + +-------+ + + + | Component | Value | Ref Range | Performed | Pathologist | | | | | At | Signature | + +-------+ + + + | AMYLASE,KATHY | 32 | 25 - 115 U/L | [facility] [...] [facility] | [address] | [place] [address] | | | SERVICES, CORE | [address] | | | + + + + + LDH TOTAL, PLASMA (12/10/2018 1:22 PM PST) + +---------+ + + + | Component | Value | Ref Range | Performed | Pathologist | | | | | At | Signature | + +---------+ + + + | LD TOTAL, | 185 | <=250 U/L | [facility] | | [...] | + + + + + | [facility] | [address] | [place] [address] | | | SERVICES, CORE | [address] | | | + + + + + documented in this encounter Visit Diagnoses + + | Diagnosis | + + | Malignant neoplasm of esophagus, unspecified location (HCC) - Primary | + + documented in this encounter"
--- OUTSIDE RECORDS SUMMARY | ~2019-11-23 | XMS | Encounter Summary ---
Demographics + + + | Address | [address] | | | [place] [address] | + + + | Home Phone | | + + + | Preferred Language | Unknown | + + + | Marital Status | | + + + | Anabaptism Affiliation | CAT | + + + | Race | White | + + + | Ethnic Group | Not or | + + + Author + + + | Author | [facility] | + + + | Organization | [facility] | + + + | [...] Team Providers + +------+ + | Care Executive Search Consultant Name | Role | Phone | + [...] Pharmacy | | | | | | [address] | | | | | | [address] [place], [place] | | | | | | [address] | | | | | | [phone] | | | +--------+ + + + [...]
--- OUTSIDE RECORDS SUMMARY | ~2019-11-23 | XMS | Encounter Summary ---
Demographics + + + | Address | [address] | | | [place] [address] | + + + | Home Phone | | + + + | Preferred Language | Unknown | + + + | Marital Status | | + + + | Cheondoism Affiliation | CAT | + + + [...] Team Providers + +------+ + | Care Home Theater Specialist Name | Role | Phone | + +------+ + | Christos Olivarez MD | PCP | | + +------+ + Encounter Details +--------+ + + + + | Date | Type | Department | Care Team | Description | +--------+ + + + + | 08/13/ | Hospital | Hematology/Medical | Onc, Gen [address] | | | 2019 | Encounter | Oncology at [facility] | [address] [place], | | | | | [address] | [place] [address] | | | | | Mailcode: [facility] | | | | | | [facility] | | | | | | Healing, [address] | | | | | | [place], [place] | | | | | | [address] | | | | | | [phone] | | | +--------+ + + + [...] + + + +---------+ + + | escitalopram | Take 10 mg by mouth | | 0 | | | | oxalate 10 mg oral | once daily. | | | | | | tablet | | | | | | + [...] + + + +---------+ + + | LEVOTHYROXINE 25 | TAKE ONE TABLET BY | 30 | 1 | 04/16/20 | | | mcg oral tablet | MOUTH EVERY DAY | tablet | | 19 | | | | BEFORE BREAKFAST. | | | | | + + + +---------+ + + | LORazepam 1 mg | Take 1 mg by mouth | | 0 | | | | oral tablet | as needed for | | | | | | | anxiety (and sleep). | | | | | + + + +---------+ + + | omeprazole | Take 2 capsules by | 30 | 5 | 06/17/20 | | | (PRILOSEC) 20 mg | mouth once daily in | capsule | | 19 | | | oral capsule,delayed | the morning. | | | | | | release(DR/EC) | | | | | | + + + +---------+ + + | ondansetron ODT | Dissolve 1-2 tablets | 20 | 1 | 07/09/20 | | | (ZOFRAN ODT) 4 mg | on tongue and | tablet | | 19 | | | oral | swallow every twelve | | | | | | tablet,disintegratin | hours as needed. | | | | | | g | | | | | | + [...] | + +--------+ + + + | CORTISOL, SERUM | Routin | 08/13/2019 | Malignant neoplasm | Results for this | | | e | 7:32 PM | of lower third of | procedure are in the | | | | PDT | esophagus (HCC) | results section. | + +--------+ + + + documented in this encounter Results CORTISOL, SERUM (08/13/2019 7:32 PM PDT) + +-------+ + + + | Component | Value | Ref Range | Performed | Pathologist | | | | | At | Signature | + +-------+ + + + | CORTISOL, | 6.5 | ug/dL | [facility] | | | TOTAL SERUM | | | LABORATORY | | | | | | SERVICES, | | | | | | CORE | | + +-------+ + + + + + | Specimen | + + | Blood - Blood | | (substance) | + + + + + | Narrative | Performed At | + + + | Reference Ranges: A.M. collect(7-9am) = 5.3-22.5 ug/dL P.M. | [facility] | | collect(3-5 pm) = 3.4-16.8 ug/dL | LABORATORY | | | SERVICES, JUSTIN | + + + + + + + + | Performing | Address | City/State/Zipcode | Phone Number | | Organization | | | | + + + + + | [facility] | [address] | [place] [address] | | | [place] | [address] | | | + + + + + documented in this encounter Visit Diagnoses + + | Diagnosis | + + | Malignant neoplasm of lower third of esophagus (HCC) Malignant neoplasm of lower | | third of esophagus | + + documented in this encounter"
--- OUTSIDE RECORDS SUMMARY | ~2019-11-23 | XMS | Encounter Summary ---
Demographics + + + | Address | [address] | | | [place] [address] | + + + | Home Phone | | + + + | Preferred Language | Unknown | + + + | Marital Status | | + + + | Hindu Affiliation | CAT | + + + | Race | White | + + + | Ethnic Group | Not or | + + + Author + + + | Author | [facility] | + + + | Organization | [facility] | + + + | [...] Team Providers + +------+ + | Care Leather Goods I Assembler Name | Role | Phone | + +------+ + | Christos Olivarez MD | PCP | | + +------+ + Encounter Details +--------+ + + + + | Date | Type | Department | Care Team | Description | +--------+ + + + + | 12/20/ | Check Out Clerk | Hematology | Krunal Godoy, | Malignant neoplasm | | 2019 | | Oncology Study [address] | ,PhD [address] | of lower third of | | | | [address] | [address] [place], [place] | esophagus (HCC) | | | | Mailcode: [facility] | [address] | (Primary Dx) | | | | [facility] | [phone] | | | | | and Monika, | | | | | | [facility] | | | | | | [place], [place] | | | | | | [address] | | | | | | [phone] | | | +--------+ + + + [...] as of this encounter Results AMYLASE, PLASMA (12/24/2018 8:46 AM PST) + +-------+ + + + | Component | Value | Ref Range | Performed | Pathologist | | | | | At | Signature | + +-------+ + + + | AMYLASE,KATHY | 40 | 25 - 115 U/L | [facility] [...] | + + + + + | [facility] | [address] | [place] [address] | | | SERVICES, CORE | [address] | | | + + + + + LIPASE, PLASMA (12/24/2018 8:46 AM PST) + +--------+ + + + | Component | Value | Ref Range | Performed | Pathologist | | | | | At | Signature | + +--------+ + + + | LIPASE | 92 (L) | 152 - 353 U/L | [...] [facility] | [address] | [place] [address] | | | SERVICES, CORE | [address] | | | + + + + + LDH TOTAL, PLASMA (12/24/2018 8:46 AM PST) + +---------+ + + + | Component | Value | Ref Range | Performed | Pathologist | | | | | At | Signature | + +---------+ + + + | LD TOTAL, | 196 | <=250 U/L | [facility] | | [...] + + + + + | [facility] | [address] | [place] [address] | | | SERVICES, CORE | [address] | | | + + + + + documented in this encounter Visit Diagnoses + + | Diagnosis | + + | 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
--- OUTSIDE RECORDS SUMMARY | ~2019-11-23 | XMS | Encounter Summary ---
Demographics + + + | Address | [address] | | | [place] [address] | + + + | Home Phone | | + + + | Preferred Language | Unknown | + + + | Marital Status | | + + + | Moravian Affiliation | CAT | + + + | Race | White | + + + | Ethnic Group | Not or | + + + Author + + + | Author | [facility] | + + + | Organization | [facility] | + + + | [...] Team Providers + +------+ + | Care Manager Inventory Control Name | Role | Phone | + +------+ + | Christos Olivarez MD | PCP | | + +------+ + Encounter Details +--------+ + + + + | Date | Type | Department | Care Team | Description | +--------+ + + + + | 11/07/ | Procedure | Radiology/Imaging | | | | 2018 | Pass | Lab at [facility] [address] | | | | | | [address] Mailcode: | | | | | | [facility] | | | | | | Health and Healing, | | | | | | [place] [address], | | | | | | Floor [place], [place] | | | | | | [address] | | | | | | [phone] | | | +--------+ + + + [...]
--- OUTSIDE RECORDS SUMMARY | ~2019-11-23 | XMS | Encounter Summary ---
Demographics + + + | Address | [address] | | | [place] [address] | + + + | Home Phone | | + + + | Preferred Language | Unknown | + + + | Marital Status | | + + + | Yarsanism Affiliation | CAT | + + + | Race | White | + + + | Ethnic Group | Not or | + + + Author + + + | Author | [facility] | + + + | Organization | [facility] | + + + | [...] Team Providers + +------+ + | Care Infrastructure Developer Name | Role | Phone | [...] | | | | lower third | [address] | Mailcode: | | | | | of esophagus | [address] | Center for | | | | | Procedures | [place], [place] | Health and | | | | | [place] | [address] | Healing, | | | | | SERVICES | Phone: | [address] | | | | | PROVIDED | [phone] | [place], [place] | | | | | PART OF [place] | Fax: | [address] | | | | | INJ | [phone] | Phone: | | | | | NIVOLUMAB 1 | | [phone] | | | | | [place] EST | | Fax: | | | | | PATIENT | | [phone] | | | | | LEVEL V | | | | | | | Study IRB: | | | | | | | [id number] Study | | | | | | [...] Description | +--------+---------+ + + + | 09/03/ | Office | Hematology/Medical | Marie Liz, | Malignant neoplasm | | 2018 | Visit | Oncology at [place] | [address] | of lower third of | | | | [facility] | [address] | esophagus (HCC) | | | | [address] | [place] [address] | (Primary Dx) | | | | Mailcode: [place] | [phone] | | | | | [facility] and | | | | | | [facility] | | | | | | [place], [place] | | | | | | [address] | | | | | | [phone] | | | +--------+---------+ + + + [...] + + + | Blood Pressure | 126/88 | 09/03/2018 11:47 AM | | | | | PDT | | + + + + + | Pulse | 80 | 09/03/2018 11:47 AM | | | | | PDT | | + + + + + | Temperature | 36.9 C (98.4 F) | 09/03/2018 11:47 AM | | | | | PDT | | + + + + + | Respiratory Rate | 16 | 09/03/2018 11:47 AM | | | | | PDT | | + + + + + | Oxygen Saturation | 100% | 09/03/2018 11:47 AM | | | | | PDT | | + + + + + | Inhaled Oxygen | - | - | | | Concentration | | | | + + + + + | Weight | 66.5 kg (146 lb 9.6 | 09/03/2018 11:47 AM | | | | oz) | PDT | | + + + + + | Height | 172.7 cm (5' 8") | 09/03/2018 11:47 AM | | | | | PDT | | + + + + + | Body Mass Index | 22.29 | 09/03/2018 11:47 AM | | | [...] as of this encounter Progress Notes Kerrie Luna RN - 09/03/2018 11:50 AM PDTVS at 11:45 09/03/18 weight 146.6, 5 foot 8, Temp 98.1, BP 118/88, HR 79, O2 96%. 3: 24 PM Kerrie Katz RN - 09/03/2018 11:50 AM PDTFormatting of this note might be differe nt from the original. Research RN Note: Mr. Jacob Sapp presents today for C1D1 nivolumab vs placebo after signing consent to particip ate in [id number]: A Randomized, Multicenter, Double Blind, Phase III Study of Adjuvant Nivol umab or Placebo in Subjects with Resected Lower Esophageal, or Gastroesophageal Junction Can cer (CheckMate 577: CHECKpoint pathway and nivoluMab clinical Trial Evaluation 577). He was seen by Dr. Liz and myself. Looks well. OK to treat (screening labs). OF NOTE: Prohibited medications: Labs were reviewed: yes ECO Accompanied today by: Baseline stool count: Baseline neuropathy: none Baseline weight: 70.2 kg IV access: PIV RD/SW referral: neurology physician at [facility] established Multi-D MD: Chemotherapy teaching: done per chemo binder and ICF My Chart access: active and encouraged Patient reports that neoadjuvant chemo was completed at [facility] in [place], [place]. Radiation completed at [facility]. He reports the following medical and surgical history at baseline: Past Medical History: Diagnosis Date Cervical spinal stenosis 1997 Coronary artery disease 2007 diagnosed on angiogram when experienced chest pain - treated with medications, pain attr ibuted to esophageal spasm, never had NV or stent H/O Diverticulosis 1997 Hernia, hiatal, removed with esopageal surgery 05/2018 Hyperlipidemia 2008 LBBB (left bundle branch block) 09/2017 H/O [...] 2002 Constipation, grade 1 intermittent, started 05/2018 Marie Murphy Md - 07/2018 11:50 AM PDT Oncology Assessment: Cancer Staging Malignant neoplasm of [...] 01/30/18 - 05/14/[address] Larson - 05/14/18 Pathology: G. Esophagus and stomach, [...] or no response, score 3) - 07/31/2018 [facility] Medical oncology evaluation- offered enrollment on Checkmate 577 trial, Nivo vs. Plac sabrina for adjuvant therapy, consent signed - 08/21/18 CT CAP 1. Since 03/22/2018, postsurgical changes of an esophagectomy with gastric pull-through, and interval removal of the jejunostomy tube. No evidence of recurrent or metastatic disease. 2. Small right-sided pleural effusion. - 09/03/18 Start INV therapy Nivolumab/placebo Plan/ Recommendations: 1. Cancer Staging Malignant neoplasm of lower third of esophagus (HCC) Staging form: Esophagus - Adenocarcinoma, AJCC 8th Edition - Clinical: No stage assigned - Unsigned - Pathologic: Stage IIIB (pT3, pN2, cM0) - Signed by Marie Liz MD on 07/31/2018 -Starting investigational therapy Nivolumab/placebo 2. Neck pain - chronic - on vicodin prn with PCP - I encouraged him to continue management with his primary care provider given that this is not related to his prior malignancy. No orders of the defined types were placed in this encounter. No follow-up information. The patient is receiving chemotherapy which requires ongoing evaluation of toxicity due to cytotoxic therapy and assessment of disease status and disease related symptoms. Interval History: Jacob Sapp returns to clinic today for No chief complaint on file. Since the last clinic visit, patient is continued to feel well. He takes hydrocodone inter mittently for chronic neck pain, not related to his cancer and predating his diagnosis. He denies any other complaints, he is eating well, denies any pain, fever, shortness of breath or chest discomfort. His incisions are well-healed, his energy level has been good, he repo rts one formed bowel movement every morning. Current Outpatient Prescriptions Medication Sig DULoxetine 30 mg oral capsule,delayed release(DR/EC) 30 [...] for anxiety (and sleep). LOVASTATIN ORAL Take 20 mg by mouth once daily in the evening. omeprazole (PRILOSEC) 20 mg oral capsule,delayed release(DR/EC) Take 1 capsule by mouth once daily in the morning. propranolol 60 mg oral tablet Take 0.5 tablets by mouth two times daily. tamsulosin (FLOMAX) 0.4 mg oral capsule Take 1 capsule by mouth once daily. No current facility-administered medications for this visit. Facility-Administered Medications Ordered in Other Visits Medication Dose Route Frequency Provider Last Rate Last Dose diphenhydrAMINE (BENADRYL) injection 25-50 mg 25-50 mg intravenous PRN Marie Liz MD EPINEPHrine (EPIPEN) injection 0.3 mg 0.3 mg intramuscular PRN Marie Liz MD famotidine (PEPCID) injection 20 mg 20 mg intravenous PRN Marie Liz MD INV nivolumab/placebo 240 mg in INV NaCl 0.9% IV 240 mg intravenous ONCE Marie bajwa MD Review of Systems: Remaining 10 systems reviewed, see scanned document Fam Hx: reviewed, see scanned document Physical Examination: BP 126/88 | Pulse 80 | Temp (Src) 36.9 C (98.4 F) (Oral) | RR 16 | Ht 1.727 m (5' 8") | Wt 66.5 kg (146 lb 9.6 oz) | SpO2 100% | BMI 22.29 kg/(m^2) ECOG PS: 0 Gen: Well-developed, well-nourished, ambulatory, in no distress [...] Soft, non-tender, non-distended, normal bowel sounds, no hepatosplenomegaly, healed i ncisions Extr: No edema, calf pain Labs: Lab Results Component Value Date NA 140 08/21/2018 K 5.1 08/21/2018 CL 106 08/21/2018 BICARB 28 08/21/2018 BUN 11 08/21/2018 CR 0.79 08/21/2018 GLU 92 08/21/2018 CA 8.9 08/21/2018 AST 53 08/21/2018 ALT 43 08/21/2018 AP 89 08/21/2018 TBILI 0.4 08/21/2018 TP 7.0 08/21/2018 ALB 3.5 08/21/2018 Lab Results Component Value Date WBC 3.66 08/21/2018 HB 11.7 08/21/2018 HCT 34.3 08/21/2018 PLT 183 08/21/2018 MCV 100.3 08/21/2018 RDW 48.7 08/21/2018 Imaging: Current and prior CTs were personally reviewed, agree with report Marie Liz MD 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
--- OUTSIDE RECORDS SUMMARY | ~2019-11-23 | XMS | Encounter Summary ---
Demographics + + + | Address | [address] | | | [place] [address] | + + + | Home Phone | | + + + | Preferred Language | Unknown | + + + | Marital Status | | + + + | Jainism Affiliation | CAT | + + + [...] Team Providers + +------+ + | Care Crm Functional Analyst Name | Role | Phone | + [...] | +--------+ + + + + | 10/01/ | Clinical | Laboratory at [facility] | | Lab Draw | | 2018 | Support | [address] | | | | | Staff | [place], [place] | | | | | | [address] | | | | | | [phone] | | | +--------+ + + + [...] encounter Progress Notes Karen Farias RN - 10/01/2018 11:00 AM PSTPIV started in right AC. CBC and CMP drawn and re sulted. Additional labs drawn and sent to core lab. 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 Pt tolerated without incident. Pt discharged to provider visit . documented in this enc nter Plan of Treatment Not on filedocumented as of this encounter Procedures + +--------+ + + + | Procedure Name | Priori | Date/Time | Associated Diagnosis | Comments | | | ty | | | | + +--------+ + + + | UA, DIPSTICK ONLY | Routin | 10/01/2018 | Malignant neoplasm | Results for this | | | e | 10:51 AM | of lower third of | procedure are in the | | | | PST | esophagus (HCC) | results section. | + +--------+ + + + | URINE, MICROSCOPIC | Routin | 10/01/2018 | Malignant neoplasm | Results for this | | EXAM | e | 10:51 AM | of lower third of | procedure are in the | | | | PST | esophagus (HCC) | results section. | + +--------+ + + + | LIPASE, PLASMA | Routin | 10/01/2018 | Malignant neoplasm | Results for this | | | e | 10:51 AM | of lower third of | procedure are in the | | | | PST | esophagus (HCC) | results section. | + +--------+ + + + | LDH TOTAL, PLASMA | Routin | 10/01/2018 | Malignant neoplasm | Results for this | | | e | 10:51 AM | of lower third of | procedure are in the | | | | PST | esophagus (HCC) | results section. | + +--------+ + + + | AMYLASE, PLASMA | Routin | 10/01/2018 | Malignant neoplasm | Results for this | | | e | 10:51 AM | of lower third of | procedure are in the | | | | PST | esophagus (HCC) | results section. | + +--------+ + + + | RESEARCH | Routin | 10/01/2018 | Malignant neoplasm | | | COMMUNICATION #1 - | e | 10:50 AM | of lower third of | | | [place] | | PST | esophagus (HCC) | | + +--------+ + + + | NURSING | Routin | 10/01/2018 | Malignant neoplasm | | | COMMUNICATION #1 - | e | 10:50 AM | of lower third of | | | [place] | | PST | esophagus (HCC) | | + +--------+ + + + | CBC AND AUTO DIFF - | Routin | 10/01/2018 | Malignant neoplasm | Results for this | | [facility] | e | 10:50 AM | of lower third of | procedure are in the | | | | PST | esophagus (HCC) | results section. | + +--------+ + + + | COMPLETE METABOLIC | Routin | 10/01/2018 | Malignant neoplasm | Results for this | | PANEL - OLP | e | 10:50 AM | of lower third of | procedure are in the | | | | PST | esophagus (HCC) | results section. | + +--------+ + + + | CBC WITH AUTO DIFF - | Routin | 10/01/2018 | Malignant neoplasm | Results for this | | OLP | e | 10:50 AM | of lower third of | procedure are in the | | | | PST | esophagus (HCC) | results section. | + +--------+ + + + | [facility] - COMPLETE | Routin | 10/01/2018 | Malignant neoplasm | Results for this | | METABOLIC SET | e | 10:50 AM | of lower third of | procedure are in the | | | | PST | esophagus (HCC) | results section. | + +--------+ + + + documented in this encounter Results URINE, MICROSCOPIC EXAM (10/01/2018 10:51 AM PST) + +--------+ + + + | Component | Value | Ref Range | Performed | Pathologist | | | | | At | Signature | + +--------+ + + + | RED CELLS | 12 (H) | 0 - 3 /hpf | [facility] | | | | | | LABORATORY | | | | | | SERVICES, | | | | | | CORE | | + +--------+ + + + | WHITE CELLS | 0 | 0 - 5 /hpf | [facility] | | | | | | LABORATORY | | | | | | SERVICES, | | | | | | CORE | | + +--------+ + + + | BACTERIA | None | None /hpf | [facility] | | | | | | LABORATORY | | | | | | SERVICES, | | | | | | CORE | | + +--------+ + + + | YEAST (LAB) | None | None /hpf | [facility] | | | | | | LABORATORY | | | | | | SERVICES, | | | | | | CORE | | + +--------+ + + + | SQUAMOUS | Few | None, Few /hpf | [facility] | | | EPITHELIAL | | | LABORATORY | | | | | | SERVICES, | | | | | | CORE | | + +--------+ + + + | MUCOUS | Few | None, Few /hpf | [facility] | | | | | | LABORATORY | | | | | | SERVICES, | | | | | | CORE | | + +--------+ + + + | TRICHOMONAS | None | None /hpf | [facility] | | | | | | LABORATORY | | | | | | SERVICES, | | | | | | CORE | | + +--------+ + + + | NON-SQUAMOU | None | None /hpf | [facility] | | | S EPITH | | | LABORATORY | | | | | | SERVICES, | | | | | | CORE | | + +--------+ + + + | HYALINE | 0 | 0 - 2 /lpf | [facility] | | | CASTS | | | LABORATORY | | | | | | SERVICES, | | | | | | CORE | | + +--------+ + + + | GRANULAR | 0 | 0 - 2 /lpf | [facility] | | | CASTS | | | LABORATORY | | | | | | SERVICES, | | | | | | CORE | | + +--------+ + + + | CELLULAR | 0 | <=0 /lpf | [facility] | | | CASTS | | | LABORATORY | | | | | | SERVICES, | | | | | | CORE | | + +--------+ + + + | TRIPLE P04 | None | None, Few /hpf | [facility] | | | CRYSTALS | | | LABORATORY | | | | | | SERVICES, | | | | | | CORE | | + +--------+ + + + | CALCIUM | Few | None, Few /hpf | [facility] | | | OXALATE | | | LABORATORY | | | YINA | | | SERVICES, | | | | | | CORE | | + +--------+ + + + | URIC ACID | None | None, Few /hpf | [facility] | | | CRYSTALS | | | LABORATORY | | | | | | SERVICES, | | | | | | CORE | | + +--------+ + + + | AMORPHOUS | Few | None, Few /hpf | [facility] | | | CRYSTALS | | | LABORATORY | | | | | | SERVICES, | | | | | | CORE | | + +--------+ + + + + + | Specimen | + + | Urine | + + + + + + + | Performing | Address | City/State/Zipcode | Phone Number | | Organization | | | | + + + + + | [facility] | [address] | [place] [address] | | | SERVICES, CORE | [address] | | | + + + + + AMYLASE, PLASMA (10/01/2018 10:51 AM PST) + +-------+ + + + | Component | Value | Ref Range | Performed | Pathologist | | | | | At | Signature | + +-------+ + + + | AMYLASE,KATHY | 30 | 25 - 115 U/L | [facility] [...] | + + + + + | [facility] | [address] | [place] [address] | | | SERVICES, CORE | [address] | | | + + + + + LIPASE, PLASMA (10/01/2018 10:51 AM PST) + +--------+ + + + | Component | Value | Ref Range | Performed | Pathologist | | | | | At | Signature | + +--------+ + + + | LIPASE | 76 (L) | 152 - 353 U/L | [...] + + | [facility] | [address] | [place] [address] | | | SERVICES, CORE | [address] | | | + + + + + UAAIDAN ONLY (10/01/2018 10:51 AM PST) + + + + + + | Component | Value | Ref Range | Performed | Pathologist | | | | | At | Signature | + + + + + + | COLOR(UR) | Yellow | | [facility] | | | | | | LABORATORY | | | | | | SERVICES, | | | | | | CORE | | + + + + + + | APPEARANCE | Mod. Cloudy | | [facility] | | | | | | LABORATORY | | | | | | SERVICES, | | | | | | CORE | | + + + + + + | GLUCOSE(UR) | Negative | Negative, 50.0 | [facility] | | | | | mg/dL | LABORATORY | | | | | | SERVICES, | | | | | | CORE | | + + + + + + | PROTEIN(LAB | Negative | Negative, 30.0 | [facility] | | | ) | | mg/dL | LABORATORY | | | | | | SERVICES, | | | | | | CORE | | + + + + + + | BILIRUBIN | Negative | Negative | [facility] | | | | | | LABORATORY | | | | | | SERVICES, | | | | | | CORE | | + + + + + + | UROBILINOGE | 2.0 (A) | <2.0 mg/dL | [facility] | | | N | | | LABORATORY | | | | | | SERVICES, | | | | | | CORE | | + + + + + + | PH(UR) | 5.0 | 5.0 - 8.0 | [facility] | | | | | | LABORATORY | | | | | | SERVICES, | | | | | | CORE | | + + + + + + | BLOOD | Negative | Negative | [facility] | | | | | | LABORATORY | | | | | | SERVICES, | | | | | | CORE | | + + + + + + | KETONES | 20.0 (A) | Negative mg/dL | [facility] | | | | | | LABORATORY | | | | | | SERVICES, | | | | | | CORE | | + + + + + + | NITRITES | Negative | Negative | [facility] | | | | | | LABORATORY | | | | | | SERVICES, | | | | | | CORE | | + + + + + + | LEUKOCYTE | Negative | Negative | [facility] | | | ESTERASE | | | LABORATORY | | | | | | SERVICES, | | | | | | CORE | | + + + + + + | SPECIFIC | 1.020Comment: Specific | 1.005 - 1.030 | [facility] | | | GRAVITY | [place] performed by | | LABORATORY | | | | refractometry | | SERVICES, | | | | | | CORE | | + + + + + + + + | Specimen | + + | Urine | + + + + + + + | Performing | Address | City/State/Zipcode | Phone Number | | Organization | | | | + + + + + | [facility] | [address] | [place] [address] | | | SERVICES, CORE | [address] | | | + + + + + LDH TOTAL, PLASMA (10/01/2018 10:51 AM PST) + +---------+ + + + | Component | Value | Ref Range | Performed | Pathologist | | | | | At | Signature | + +---------+ + + + | LD TOTAL, | 131 | <=250 U/L | [facility] | | [...] [facility] | [address] | [place] [address] | | | SERVICES, CORE | [address] | | | + + + + + [facility] - COMPLETE METABOLIC SET (10/01/2018 10:50 AM PST) + +---------+ + + + | Component | Value | Ref Range | Performed | Pathologist | | | | | At | Signature | + +---------+ + + + | GLUCOSE, | 110 (H) | 70 - 99 mg/dL | [facility] | | | PLASMA | | | LABORATORY | | | (LAB) | | | SERVICES, | | | | | | [facility] | | | | | | [facility] | | + +---------+ + + + | BUN, PLASMA | 11 | 6 - 20 mg/dL | [facility] | | | (LAB) | | | LABORATORY | | | | | | SERVICES, | | | | | | [facility] + | | | | | | [facility] | | + +---------+ + + + | CREATININE | 0.90 | 0.70 - 1.30 | [facility] | | | PLASMA | | mg/dL | LABORATORY | | | (LAB) | | | SERVICES, | | | | | | [facility] + | | | | | | [facility] | | + +---------+ + + + | SODIUM, | 141 | 134 - 143 | [facility] | | | PLASMA | | mmol/L | LABORATORY | | | (LAB) | | | SERVICES, | | | | | | [facility] + | | | | | | [facility] | | + +---------+ + + + | POTASSIUM, | 4.1 | 3.4 - 5.0 | [facility] | | | PLASMA | | mmol/L | LABORATORY | | | (LAB) | | | SERVICES, | | | | | | [facility] + | | | | | | [facility]AL[facility] | | + +---------+ + + + | CHLORIDE, | 105 | 97 - 108 mmol/L | [facility] | | | PLASMA | | | LABORATORY | | | (LAB) | | | SERVICES, | | | | | | [facility] + | | | | | | [facility] | | + +---------+ + + + | TOTAL CO2, | 27 | 22 - 29 mmol/L | [facility] | | | PLASMA | | | LABORATORY | | | (LAB) | | | SERVICES, | | | | | | [facility] + | | | | | | [facility]AL[facility] | | + +---------+ + + + | CALCIUM, | 9.2 | 8.6 - 10.2 | [facility] | | | PLASMA | | mg/dL | LABORATORY | | | (LAB) | | | SERVICES, | | | | | | [facility] + | | | | | | [facility] | | + +---------+ + + + | BILIRUBIN | 1.0 | 0.3 - 1.2 mg/dL | [facility] | | | TOTAL | | | LABORATORY | | | | | | SERVICES, | | | | | | [facility] + | | | | | | [facility]AL[facility] | | + +---------+ + + + | TOTAL | 6.7 | 6.1 - 7.9 g/dL | [facility] | | | PROTEIN, | | | LABORATORY | | | PLASMA | | | SERVICES, | | | (LAB) | | | [facility] + | | | | | | [facility]AL[facility] | | + +---------+ + + + | ALBUMIN, | 3.5 | 3.5 - 4.7 g/dL | [facility] | | | PLASMA | | | LABORATORY | | | (LAB) | | | SERVICES, | | | | | | [facility] + | | | | | | [facility] | | + +---------+ + + + | ALK PHOS | 84 | 43 - 92 U/L | [facility] | | | | | | LABORATORY | | | | | | SERVICES, | | | | | | [facility] + | | | | | | [facility] | | + +---------+ + + + | AST(SGOT) | 49 (H) | <=41 U/L | [facility] | | | | | | LABORATORY | | | | | | SERVICES, | | | | | | [facility] + | | | | | | [facility] | | + +---------+ + + + | ALT (SGPT) | 49 | <=60 U/L | [facility] | | | | | | LABORATORY | | | | | | SERVICES, | | | | | | [facility] + | | | | | | [facility] | | + +---------+ + + + | ANION GAP | | 4 - 11 mmol/L | [facility] | | | | | | LABORATORY | | | | | | SERVICES, | | | | | | [facility] + | | | | | | [facility] | | + +---------+ + + + | ANION | | 4 - 11 mmol/L | [facility] | | | GAP(ALB | | | LABORATORY | | | CORRECTED) | | | SERVICES, | | | | | | [facility] + | | | | | | [facility] | | + +---------+ + + + + + | Specimen | + + | Blood - Blood | | (substance) | + + + + + + + | Performing | Address | City/State/Zipcode | Phone Number | | Organization | | | | + + + + + | [facility] | [address] | [place] [address] | | | [facility] | | | | | [facility] + [facility] | | | | + + + + + CBC AND AUTO DIFF - [facility] (10/01/2018 10:50 AM PST) + + + + + + | Component | Value | Ref Range | Performed | Pathologist | | | | | At | Signature | + + + + + + | WHITE CELL | 3.55 | 3.50 - 10.80 | [facility] | | | COUNT | | K/cu mm | LABORATORY | | | | | | SERVICES, | | | | | | [facility] + | | | | | | [facility] | | + + + + + + | RED CELL | 3.44 (L) | 4.50 - 6.00 | [facility] | | | COUNT | | M/cu mm | LABORATORY | | | | | | [facility], | | | | | | [facility] | | [facility] + | | | | | | [facility] | | + + + + + + | HEMOGLOBIN | 11.7 | g/dL | [facility] | | | | | | LABORATORY | | | | | | SERVICES, | | | | | | [facility] + | | | | | | [facility]AL[facility] | | + + + + + + | HEMATOCRIT | 33.3 (L) | 41.0 - 53.0 % | [facility] | | | | | | LABORATORY | | | | | | SERVICES, | | | | | | [facility] + | | | | | | [facility] | | + + + + + + | MCV | 96.8 | 80.0 - 100.0 fL | [facility] | | | | | | LABORATORY | | | | | | SERVICES, | | | | | | [facility] + | | | | | | [facility] | | + + + + + + | MCHC | 35.1 | 32.0 - 36.0 | [facility] | | | | | g/dL | LABORATORY | | | | | | SERVICES, | | | | | | [facility] + | | | | | | [facility] | | + + + + + + | RDW SD | 42.0 | 35.1 - 46.3 fL | [facility] | | | | | | LABORATORY | | | | | | SERVICES, | | | | | | [facility] + | | | | | | [facility] | | + + + + + + | PLATELET | 168 | 150 - 400 K/cu | [facility] | | | COUNT | | mm | LABORATORY | | | | | | SERVICES, | | | | | | [facility] + | | | | | | [facility] | | + + + + + + | MPV | 8.4 (L) | 9.7 - 12.3 fL | [facility] | | | | | | LABORATORY | | | | | | SERVICES, | | | | | | [facility] + | | | | | | [facility] | | + + + + + + | NEUTROPHIL | 63.1 | 50.0 - 70.0 % | [facility] | | | % | | | LABORATORY | | | | | | SERVICES, | | | | | | [facility] + | | | | | | [facility]AL[facility] | | + + + + + + | LYMPHOCYTE | 24.5 | 18.0 - 42.0 % | [facility] | | | % | | | LABORATORY | | | | | | SERVICES, | | | | | | [facility] + | | | | | | [facility]AL[facility] | | + + + + + + | MONOCYTE % | 9.6 (H) | 3.5 - 9.0 % | [facility] | | | | | | LABORATORY | | | | | | SERVICES, | | | | | | [facility] + | | | | | | [facility]AL[facility] | | + + + + + + | EOS % | 2.5 | 1.0 - 3.0 % | [facility] | | | | | | LABORATORY | | | | | | SERVICES, | | | | | | [facility] + | | | | | | [facility]AL[facility] | | + + + + + + | BASO % | 0.3 | 0.0 - 2.0 % | [facility] | | | | | | LABORATORY | | | | | | SERVICES, | | | | | | [facility] + | | | | | | [facility]AL[facility] | | + + + + + + | NEUTROPHIL | 2.24 | 1.80 - 7.70 | [facility] | | | # | | K/cu mm | LABORATORY | | | | | | SERVICES, | | | | | | [facility] | [facility] + | | | | | | [facility]ALING | | + + + + + + | LYMPHOCYTE | 0.87 (L) | 1.00 - 4.80 | [facility] | | | # | | K/cu mm | LABORATORY | | | | | | SERVICES, | | | | | | [facility] + | | | | | | [facility]AL[facility] | | + + + + + + | MONOCYTE # | 0.34 | 0.10 - 0.90 | [facility] | | | | | K/cu mm | LABORATORY | | | | | | SERVICES, | | | | | | [facility] + | | | | | | [facility]ALING | | + + + + + + | EOS # | 0.09 | 0.00 - 0.50 | [facility] | | | | | K/cu mm | LABORATORY | | | | | | SERVICES, | | | | | | [facility] + | | | | | | [facility]ALING | | + + + + + + | BASO # | 0.01 | 0.00 - 0.10 | [...] | + + + + + | [facility] | [address] | [place] [address] | | | [facility] | | | | | HEALTH + [...]
--- OUTSIDE RECORDS SUMMARY | ~2019-11-23 | XMS | Encounter Summary ---
Demographics + + + | Address | [address] | | | [place] [address] | + + + | Home Phone [...] Team Providers + +------+ + | Care Heel Packer Name | Role | Phone | + +------+ + | Christos Olivarez MD | PCP | | + +------+ + Reason for Referral Diagnostic Testing (Routine) + +--------+ + + + + | Status | Reason | Specialty | Diagnoses / | Referred By | Referred To | | | | | Procedures | Contact | Contact | + +--------+ + + + + | New Request | | Radiology | Diagnoses | Walt, | | | | | | Malignant | Krunal, | | | | | | neoplasm of | ,PhD [address] | | | | | | lower third | [address] | | | | | | of esophagus | [place], | | | | | | (HCC) | [place] | | | | | | Procedures | [address] | | | | | | CT CHEST, | Phone: | | | | | | ABDOMEN AND | [phone] | | | | | | PELVIS W IV | Fax: | | | | | | CONTRAST | [phone] | | + +--------+ + + + + Reason for Visit Diagnostic Testing (Routine) + +--------+ + + + + | Status | Reason | Specialty | Diagnoses / | Referred By | Referred To | | | | | Procedures | Contact | Contact | + +--------+ + + + + | New Request | | Radiology | Diagnoses | Walt, | | | | | | Malignant | Krunal, | | | | | | neoplasm of | ,PhD [address] | | | | | | lower third | [address] | | | | | | of esophagus | [place], | | | | | | (HCC) | [place] | | | | | | Procedures | [address] | | | | | | CT CHEST, | Phone: | | | | | | ABDOMEN AND | [phone] | | | | | | PELVIS W IV | Fax: | | | | | | CONTRAST | [phone] | | + +--------+ + + + + Encounter Details +--------+ + + + + | Date | Type | Department | Care Team | Description | +--------+ + + + + | 08/13/ | Hospital | Diagnostic Imaging | Krunal Godoy, | | | 2019 | Encounter | Services at [facility] | ,PhD [address] | | | | | [address] | [place], [place] | | | | | Katherine French Mailcode: | [address] | | | | | [address] [facility] | [phone] | | | | | [place], [place] | | | | | | [address] | | | | | | [phone] | | | +--------+ + + + [...] | CT CHEST, ABDOMEN | Routin | 08/13/2019 | Malignant neoplasm | Results for this | | AND PELVIS W IV | e | 10:54 AM | of lower third of | procedure are in the | | CONTRAST | | PDT | esophagus (HCC) | results section. | + +--------+ + + + | CREATININE, POC | Routin | 08/13/2019 | Malignant neoplasm | Results for this | | | e | 10:35 AM | of lower third of | procedure are in the | | | | PDT | esophagus (HCC) | results section. | + +--------+ + + + documented in this encounter Results CT CHEST, ABDOMEN AND PELVIS W IV CONTRAST (08/13/2019 10:54 AM PDT) + + | Specimen | + + | | + + + + + | Narrative | Performed At | + + + | EXAM: CT of the chest, abdomen and pelvis WITH intravenous contrast. | [facility] | | HISTORY: Malignant neoplasm of lower third of esophagus (HCC) | RADIOLOGY VOICE | | COMPARISON: 05/20/19 TECHNIQUE: CT of the chest, abdomen and | RECOGNITION 2 | | pelvis WITH intravenous contrast. Coronal and sagittal reformats were | | | generated and reviewed. FINDINGS: CHEST: Heart and great | | | vessels are unremarkable aside from atherosclerosis. The gastric | | | conduit and anastomosis appears normal. No lymphadenopathy. The | | | left lower lobe subpleural nodule now measures 9 mm, previously 6 mm | | | (image 112). Another spiculated left lower lobe nodule measures 7 mm, | | | previously 4 mm (image 134). A right upper lobe subpleural nodule now | | | measures 6 mm, previously 5 mm (image 85). Another suspicious left | | | lower lobe pulmonary nodule is seen (image 166). All of these nodules | | | are new from baseline postsurgical imaging July 2018. No | | | pleural effusion.. LIVER: Unremarkable. BILIARY: Gallbladder | | | appears surgically absent. Mild biliary dilation is stable and likely | | | from cholecystectomy. PANCREAS: Dilated pancreatic duct in the head | | | is unchanged and likely chronic. SPLEEN: Unremarkable. ADRENALS: | | | Thickening of the right adrenal gland with apparent 17 mm lesion is | | | new from remote studies and slightly increased compared to recent | | | studies were measured 13 mm. This is suspicious for adrenal | | | metastasis. Left adrenal is unremarkable.. KIDNEYS/URETERS: Multiple | | | small renal cysts. PELVIC ORGANS/BLADDER: Unremarkable. GI TRACT: | | | Gastric conduit is unremarkable. No dilated loops of bowel. Moderate | | | to large rectosigmoid stool. Sigmoid diverticulosis. PERITONEUM: No | | | free air or fluid. LYMPH NODES: No lymphadenopathy. VESSELS: | | | Scattered atherosclerotic calcification, without aneurysm. BONES | | | AND SOFT TISSUES: Right flank hernia containing fat is stable. In the | | | right lower quadrant again seen is a soft tissue mass in the oblique | | | muscles measuring 2.4 x 1.3 cm, previously 2.6 x 1.2 cm. No suspicious | | | bone lesion. IMPRESSION: 1. Since 05/20/19, probable small | | | lung metastases are slightly increased. 2. A right adrenal lesion | | | suspicious for metastasis is mildly increased. 3. Right abdominal | | | wall soft tissue mass appears stable. I have personally reviewed | | | the images and, if necessary, edited the report. I agree with the | | | report as now presented. Final signature: Kaveh Rodriguez MD | | | 08/13/2019 11:28 AM Preliminary: Kaveh Rodriguez MD Dictation | | | initiated: Kaveh Rodriguez MD 08/13/2019 11:16 AM | | + + + + + | Procedure Note | + + | Service Account, Radiant Res In Interface - 08/13/2019 11:29 AM PDT EXAM: CT of the | | chest, abdomen and pelvis WITH intravenous contrast. HISTORY: Malignant neoplasm of | | lower third of esophagus (HCC) COMPARISON: 05/20/19 TECHNIQUE: CT of the chest, abdomen | | and pelvis WITH intravenous contrast. Coronal and sagittal reformats were generated and | | reviewed. FINDINGS: CHEST: Heart and great vessels are unremarkable aside from | | atherosclerosis. The gastric conduit and anastomosis appears normal. No lymphadenopathy. | | The left lower lobe subpleural nodule now measures 9 mm, previously 6 mm (image 112). | | Another spiculated left lower lobe nodule measures 7 mm, previously 4 mm (image 134). A | | right upper lobe subpleural nodule now measures 6 mm, previously 5 mm (image 85). | | Another suspicious left lower lobe pulmonary nodule is seen (image 166). All of these | | nodules are new from baseline postsurgical imaging July 2018. No pleural effusion.. | | LIVER: Unremarkable.BILIARY: Gallbladder appears surgically absent. Mild biliary | | dilation is stable and likely from cholecystectomy.PANCREAS: Dilated pancreatic duct in | | the head is unchanged and likely chronic. SPLEEN: Unremarkable.ADRENALS: Thickening of | | the right adrenal gland with apparent 17 mm lesion is new from remote studies and | | slightly increased compared to recent studies were measured 13 mm. This is suspicious | | for adrenal metastasis. Left adrenal is unremarkable..KIDNEYS/URETERS: Multiple small | | renal cysts.PELVIC ORGANS/BLADDER: Unremarkable. GI TRACT: Gastric conduit is | | unremarkable. No dilated loops of bowel. Moderate to large rectosigmoid stool. Sigmoid | | diverticulosis.PERITONEUM: No free air or fluid. LYMPH NODES: No | | lymphadenopathy.VESSELS: Scattered atherosclerotic calcification, without aneurysm. | | BONES AND SOFT TISSUES: Right flank hernia containing fat is stable. In the right lower | | quadrant again seen is a soft tissue mass in the oblique muscles measuring 2.4 x 1.3 cm, | | previously 2.6 x 1.2 cm. No suspicious bone lesion. IMPRESSION: 1. Since 05/20/19, | | probable small lung metastases are slightly increased. 2. A right adrenal lesion | | suspicious for metastasis is mildly increased. 3. Right abdominal wall soft tissue mass | | appears stable. I have personally reviewed the images and, if necessary, edited the | | report. I agree with the report as now presented. Final signature: Kaveh Rodriguez MD | | 08/13/2019 11:28 AM Preliminary: Kaveh Rodriguez MD Dictation initiated: Kaveh Dudley | | MD Michael 08/13/2019 11:16 AM | |VESSELS: Scattered atherosclerotic calcification, without aneurysm. | | | |BONES AND SOFT TISSUES: Right flank hernia containing fat is stable. In the right lower diana drant again seen is a soft tissue mass in the oblique muscles measuring 2.4 x 1.3 cm, previo usly 2.6 x 1.2 cm. No suspicious bone lesion. | | | |IMPRESSION: | | | |1. Since 05/20/19, probable small lung metastases are slightly increased. | | | |2. A right adrenal lesion suspicious for metastasis is mildly increased. | | | |3. Right abdominal wall soft tissue mass appears stable. | | | |I have personally reviewed the images and, if necessary, edited the report. I agree with e report as now presented. | | | |Final signature: Kaveh Rodriguez MD 08/13/2019 11:28 AM | |Preliminary: Kaveh Rodriguez MD | |Dictation initiated: Kaveh Rodriguez MD 08/13/2019 11:16 AM | + + + +---------+ + + | Performing | Address | City/State/Zipcode | Phone Number | | Organization | | | | + +---------+ + + | [facility] | | | | | VOICE RECOGNITION 2 | | | | + +---------+ + + CREATININE, POC (08/13/2019 10:35 AM PDT) + +-------+ + + + | Component | Value | Ref Range | Performed | Pathologist | | | | | At | Signature | + +-------+ + + + | CREATININE, | 1.0 | 0.7 - 1.3 mg/dL | [facility] - | | | POC | | | [facility] | | | | | | [facility] | | | | | | OF CARE | | | | | | TESTS | | + +-------+ + + + + + | Specimen | + + | Blood - Blood | | (substance) | + + + + + + + | Performing | Address | City/State/Zipcode | Phone Number | | Organization | | | | + + + + + | [facility] | [address] | [place], [place] | | | [facility] | [facility] | [address] | | | TESTS | | | | + + + [...] (OMNIPAQUE) 350 mg | IV Push | 08/13/20 | 100 mL | | | | iodine/mL injection 100 mL 100 | | 19 10:54 | | | | | mL, intravenous, ONCE, 1 dose, | | AM PDT | | | | | 08/13/19 at 1130 | | | | | | + +---------+ +--------+------+------+ +---+---+ | | | +---+---+ documented in this encounter"
--- OUTSIDE RECORDS SUMMARY | ~2019-11-23 | XMS | Encounter Summary ---
Demographics + + + | Address | [address] | | | [place] [address] | + + + | Home Phone [...] + + | Author | [facility] | + + + | Organization | [facility] | + + + | Address [...] Team Providers + +------+ + | Care Workers Compensation Manager Name | Role | Phone | + +------+ + | Christos Olivarez MD | PCP | | + +------+ + Encounter Details +--------+ + + + + | Date | Type | Department | Care Team | Description | +--------+ + + + + | 08/29/ | Card Player | Hematology | Rebecca Booth | | | 2019 | | Oncology Study [address] | [address] | | | | | [address] | Katherine French [place], | | | | | Mailcode: CH7M | [place] [address] | | | | | [facility] | | | | | | and Healing, | | | | | | Building | | | | | | Floor [place], [place] | | | | | | [address] | | | | | | [phone] | | | +--------+ + + + [...]
--- OUTSIDE RECORDS SUMMARY | ~2019-11-23 | XMS | Encounter Summary ---
Demographics + + + | Address | [address] | | | [place] [address] | + + + | Home Phone | | + + + | Preferred Language | Unknown | + + + | Marital Status | | + + + | Episcopal Affiliation | CAT | + + + [...] Providers + +------+ + | Care Security Supervisor Name | Role | Phone | + +------+ + | Christos Olivarez MD | PCP | | + +------+ + Encounter Details +--------+ + + + + | Date | Type | Department | Care Team | Description | +--------+ + + + + | 02/16/ | Obstetrics Gynecology Md | Hematology/Medical | Krunal Godoy, | | | 2019 | | Oncology at [place] | ,PhD [address] | | | | | for Health & Healing | [place], [place] | | | | | [address] | [address] | | | | | Mailcode: [place] | [phone] | | | | | for Health and | | | | | | [facility] [address] | | | | | | [place], [place] | | | | | | [address] | | | | | | [phone] | | | +--------+ + + + [...]
--- OUTSIDE RECORDS SUMMARY | ~2019-11-23 | XMS | Encounter Summary ---
Demographics + + + | Address | [address] | | | [place] [address] | + + + | Home Phone | | + + + | Preferred Language | Unknown | + + + | Marital Status | | + + + | Evangelical Affiliation | CAT | + + + | Race | White | + + + | Ethnic Group | Not or | + + + Author + + + | Author | [facility] | + + + | Organization | [facility] | + + + | [...] Team Providers + +------+ + | Care Automobile Service Station Attendant Name | Role | Phone | + +------+ + | Christos Olivarez MD | PCP | | + +------+ + Reason for Referral Consultation (Routine) +--------+--------+ + + + + | Status | Reason | Specialty | Diagnoses / | Referred By | Referred To | | | | | Procedures | Contact | Contact | +--------+--------+ + + + + | Closed | | Nutrition | Diagnoses | Yg, | Duarte, | | | | | Malignant | Yun Leger, | ILANA Britt | | | | | neoplasm of | PA-C [address] | [address] | | | | | lower third | [address] | Ave | | | | | of esophagus | [address] | [place], [place] | | | | | ([facility]) | [place], [place] | [address] | | | | | Procedures | [address] | Phone: | | | | | CONSULT TO | Phone: | [phone] | | | | | ADULT | [phone] | Fax: | | | | | MEDICAL | Fax: | [phone] | | | | | NUTRITIONAL | [phone] | | | | | | THERAPY | | | +--------+--------+ + + + + Reason for Visit + + + [...] Health and | | | | | [place] | [address] | Healing, | | | | | SERVICES | Phone: | Building [address] | | | | | PROVIDED | [phone] | [place], [place] | | | | | PART OF [place] | Fax: | [address] | | | | | INJ | [phone] | Phone: | | | | | NIVOLUMAB 1 | | [phone] | | | | | MG [place] EST | | Fax: | | | | | PATIENT | | [phone] | | | | | LEVEL V | | | | | | | Study IRB: | | | | | | | [address] Study | | | | | | [...] Description | +--------+---------+ + + + | 10/28/ | Office | Hematology/Medical | Yun Ronquillo | Malignant neoplasm | | 2018 | Visit | Oncology at [place] | POOJA Leger [address] | of lower third of | | | | [employer] [facility] | [address] | esophagus (HCC) | | | | [address] | [place], [place] | (Primary Dx); | | | | Mailcode: [place] | [address] | Clinical trial exam | | | | [employer] and | [phone] | | | | | [facility] | | | | | | [place], [place] | | | | | | [address] | | | | | | [phone] | | | +--------+---------+ + + + [...] + + + | Blood Pressure | 117/66 | 10/28/2018 10:08 AM | | | | | PST | | + + + + + | Pulse | 64 | 10/28/2018 10:08 AM | | | | | PST | | + + + + + | Temperature | 36.7 C (98 F) | 10/28/2018 10:08 AM | | | | | PST | | + + + + + | Respiratory Rate | 16 | 10/28/2018 10:08 AM | | | | | PST | | + + + + + | Oxygen Saturation | 100% | 10/28/2018 10:08 AM | | | | | PST | | + + + + + | Inhaled Oxygen | - | - | | | Concentration | | | | + + + + + | Weight | 64.2 kg (141 lb 9.6 | 10/28/2018 10:08 AM | | | | oz) | PST | | + + + + + | Height | - | - | | + + + + + | Body Mass Index | 21.53 | 09/03/2018 11:47 AM | | | [...] documented as of this encounter Progress Notes Yun Ronquillo PA-C - 10/28/2018 10:10 AM PSTFormatting of this note might be differe nt from the original. Oncology Assessment: Cancer Staging Malignant neoplasm of [...] or no response, score 3) - 07/31/2018 [facility] Medical oncology evaluation- offered enrollment on [...] Nivolumab/placebo - stable fatigue. Improved appetite. No diarrhea - Proceed with Cycle 5 Nivolumab/placebo today, monitor closely for toxicities - nutrition consult ordered due to weight loss and low appetite 2. Neck pain - chronic - on [...] cipro after 4 days due to side effects - no diarrhea, LLQ pain improving, similar pain pattern to past flares, continue to monitor for colitis symptoms - pt was restarted on unknown antibiotic this week, he is checking with his regarding the name and dosage. Interval History: Jacob Sapp returns to clinic today for follow up. Since the last clinic visit, he continues to tolerate treatment well without any reported t oxicities. He states he was re-started on antibiotics for his diverticulitis flare, he does not know the dosage or name, is going to check with his . He reports improved appetite , less nausea. No diarrhea. His LLQ pain has improved. No abnormal bleeding. No headaches, vision changes, CP, SOB, l ower extremity edema, rash, new cough. Current Outpatient Prescriptions Medication Sig atorvastatin [...] reviewed, see scanned document Physical Examination: BP 117/66 | Pulse 64 | Temp (Src) 36.7 C (98 F) (Oral) | RR 16 | Wt 64.2 kg (141 lb 9.6 oz) | SpO2 100% | BMI 21.53 kg/(m^2) ECOG PS: 1 Gen: Well-developed, well-nourished, [...] murmurs or rubs Abd: Soft, mildly tender to palpation in LLQ, non-distended, normal bowel sounds, no hepat osplenomegaly Extr: Extremities warm, well perfused. No edema, calf pain bilaterally Neuro: A&O x 3. Psych: Pleasant, conversant, affect appropriate. Labs: Lab Results Component Value Date NA 140 10/28/2018 K 4.5 10/28/2018 CL 104 10/28/2018 BICARB 25 10/28/2018 BUN 9 10/28/2018 CR 1.00 10/28/2018 GLU 134 10/28/2018 CA 9.2 10/28/2018 AST 43 10/28/2018 ALT 38 10/28/2018 AP 80 10/28/2018 TBILI 0.7 10/28/2018 TP 7.3 10/28/2018 ALB 3.8 10/28/2018 Lab Results Component Value Date WBC 5.28 10/28/2018 HB 12.4 10/28/2018 HCT 35.1 10/28/2018 PLT 220 10/28/2018 MCV 95.4 10/28/2018 RDW 45.3 10/28/2018 Yun Ronquillo M.S., PADerrellC Physician [employer] Medical Oncology Pager [phone] Kerrie Monahan RN - 10/28/2018 10:10 AM PST Research RN Note: Mr. Jacob Sapp presents today for C5D1 nivolumab vs placebo after signing consent to particip ate in [id number]: A Randomized, Multicenter, Double Blind, Phase III Study of Adjuvant Nivol umab or Placebo in Subjects with Resected Lower Esophageal, or Gastroesophageal Junction Can cer (CheckMate 577: CHECKpoint pathway and nivoluMab clinical Trial Evaluation 577). Seen today by Yun BARRIENTOS and myself. Looks well. Labs OK to treat. Resolving diver ticulitis. OF NOTE: Prohibited medications: Labs were reviewed: yes ECO Accompanied today by: Baseline stool count: Baseline neuropathy: none Baseline weight: 70.2 kg IV access: PIV RD/SW referral: commercial drafter at [facility] established Multi-D MD: Chemotherapy teaching: done per chemo binder and ICF My Chart access: active and encouraged Patient reports that neoadjuvant chemo was completed at [facility] in [place], [place]. Radiation completed at [facility]. He reports the following medical and surgical history at baseline: Past Medical History: Diagnosis Date Cervical spinal stenosis 1997 Coronary artery disease 2007 diagnosed on angiogram when experienced chest pain - treated with medications, pain attr ibuted to esophageal spasm, never had RI or stent H/O Diverticulosis 1997 Hernia, hiatal, [...] Infections and Infestations- other (Diverticulitis) 2 10/09/18 New On Study Medications Medication dose route frequency indication Start date Stop date Ciprofloxacin 500 mg PO BID Infections and Infestations- other (Diverticulitis) 10/09/18 10/12/18 Metronidazole 500 mg PO TID Infections and Infestations- other (Diverticulitis) 10/09/18 1 12/19/17 Zofran 4 mg PO Q12H PRN Nausea intermittent 10/15/18 Bactrim DS 1 tab PO BID X 10 days Infections and Infestations- other (Diverticulitis) 10/21 documented in this enco unter Plan of Treatment Not on filedocumented as [...]
--- OUTSIDE RECORDS SUMMARY | ~2019-11-23 | XMS | Encounter Summary ---
Demographics + + + | Address | [address] | | | [place] [address] | + + + | Home Phone | | + + + | Preferred Language | Unknown | + + + | Marital Status | | + + + | Sikh Affiliation | CAT | + + + | Race | White | + + + | Ethnic Group | Not or | + + + Author + + + | Author | [facility] | + + + | Organization | [facility] | + + + | Address [...] Team Providers + +------+ + | Care City Collector Name | Role | Phone | + [...] | [address] | [address] [facility] | | | | | lower third | [facility] | [facility] | | | | | of esophagus | [facility] | Rd | | | | | Esophagus | Road | [facility] [place] | | | | | Ca | [facility] [place] | [address] | | | | | Procedures | [address] | Phone: | | | | | Consult, | Phone: | [phone] | | | | | Sage Wilkins | [phone] | Fax: | | | | | | Fax: | [phone] | | | | | | [phone] | | +--------+--------+ + + + + Encounter Details +--------+ + + + + | Date | Type | Department | Care Team | Description | +--------+ + + + + | 12/25/ | Hospital | Radiation Oncology | | | | 2017 | Encounter | at [facility] [address] | | | | | | [place] | | | | | | [id number] [facility] | | | | | | [facility] [place], | | | | | | [place] [address] | | | | | | [phone] | | | +--------+ + + + [...]
--- OUTSIDE RECORDS SUMMARY | ~2019-11-23 | XMS | Encounter Summary ---
Demographics + + + | Address | [address] | | | [place] [address] | + + + | Home Phone | | + + + | Preferred Language | Unknown | + + + | Marital Status | | + + + | Alevism Affiliation | CAT | + + + [...] Team Providers + +------+ + | Care Model Builder Display Name | Role | Phone | + +------+ + | Christos Olivarez MD | PCP | | + +------+ + Encounter Details +--------+ + + + + | Date | Type | Department | Care Team | Description | +--------+ + + + + | 08/16/ | Procedure | Diagnostic Imaging | | | | 2017 | Pass | Services at [facility] | | | | | | [address] | | | | | | [place] French Mailcode: | | | | | | [address] [facility] | | | | | | [place], [place] | | | | | | [address] | | | | | | [phone] | | | +--------+ + + + [...]
--- OUTSIDE RECORDS SUMMARY | ~2019-11-23 | XMS | Encounter Summary ---
Demographics + + + | Address | [address] | | | [place] [address] | + + + | Home Phone | | + + + | Preferred Language | Unknown | + + + | Marital Status | | + + + | Taoism Affiliation | CAT | + + + | Race | White | + + + | Ethnic Group | Not or | + + + Author + + + | Author | [facility] | + + + | Organization | [facility] | + + + | [...] Team Providers + +------+ + | Care Door Clamper Name | Role | Phone | + +------+ + | Luis Leiva DO | PCP | | + +------+ + Encounter Details +--------+ + + + + | Date | Type | Department | Care Team | Description | +--------+ + + + + | 01/29/ | Hospital | Radiation Oncology | | | | 2018 | Encounter | at [facility] [address] | | | | | | [place] | | | | | | [id number] [facility] | | | | | | [facility] | | | | | | [place] [address] | | | | | | [phone] | | | +--------+ + + + [...]
--- OUTSIDE RECORDS SUMMARY | ~2019-11-23 | XMS | Encounter Summary ---
Demographics + + + | Address | [address] | | | [place] [address] | + + + | Home Phone | | + + + | Preferred Language | Unknown | + + + | Marital Status | | + + + | Jewish Affiliation | CAT | + + + | Race | White | + + + | Ethnic Group | Not or | + + + Author + + + | Author | [facility] | + + + | Organization | [facility] | + + + | Address [...] Team Providers + +------+ + | Care Wedding Cake Designer Name | Role | Phone | + +------+ + | Christos Olivarez MD | PCP | | + +------+ + Reason for Visit + + + | Reason | Comments | + + + | Question | | + + + | Radiology Order | | + + + Encounter Details +--------+ + + + + | Date | Type | Department | Care Team | Description | +--------+ + + + + | 07/25/ | Telephone | Digestive Health | Eleonora Ybarra, | Question; Radiology | | 2018 | | Center at [facility] [address] | MD [address] | Order | | | | [address] | Ave [place], [place] | | | | | Mailcode: [place] | [address] | | | | | for Health and | [phone] | | | | | [place] [address] | | | | | | [place], [place] | | | | | | [address] | | | | | | [phone] | | | +--------+ + + + [...]
--- OUTSIDE RECORDS SUMMARY | ~2019-11-23 | XMS | Encounter Summary ---
Demographics + + + | Address | [address] | | | [place] [address] | + + + | Home Phone | | + + + | Preferred Language | Unknown | + + + | Marital Status | | + + + | Sikhism Affiliation | CAT | + + + | Race | White | + + + | Ethnic Group | Not or | + + + Author + + + | Author | [facility] | + + + | Organization | [facility] | + + + | Address [...] Providers + +------+ + | Care Wire Communications Engineer Name | Role | Phone | + +------+ + | Christos Olivarez MD | PCP | | + +------+ + Encounter Details +--------+ + + + + | Date | Type | Department | Care Team | Description | +--------+ + + + + | 09/11/ | Casino Operations Supervisor | Hematology | Marie Liz, | Malignant neoplasm | | 2018 | | Oncology Study 3303 | [address] | of esophagus, | | | | [address] | [address] | unspecified location | | | | Mailcode: CH7M | [place] [address] | (FORMERLY [facility]) (Primary Dx) | | | | [facility] | [phone] | | | | | and Monika, | | | | | | [facility] | | | | | | Floor [place], [place] | | | | | | [address] | | | | | | [phone] | | | +--------+ + + + [...] as of this encounter Results LIPASE, PLASMA (09/17/2018 9:29 AM PDT) + +--------+ + + + | Component | Value | Ref Range | Performed | Pathologist | | | | | At | Signature | + +--------+ + + + | LIPASE | 90 (L) | 152 - 353 U/L | [...] [facility] | [address] | [place] [address] | | | SERVICES, CORE | [address] | | | + + + + + AMYLASE, PLASMA (09/17/2018 9:29 AM PDT) + +-------+ + + + | Component | Value | Ref Range | Performed | Pathologist | | | | | At | Signature | + +-------+ + + + | AMYLASE,KATHY | 36 | 25 - 115 U/L | [facility] [...] [facility] | [address] | [place] [address] | | | SERVICES, CORE | [address] | | | + + + + + LDH TOTAL, PLASMA (09/17/2018 9:29 AM PDT) + +---------+ + + + | Component | Value | Ref Range | Performed | Pathologist | | | | | At | Signature | + +---------+ + + + | LD TOTAL, | 145 | <=250 U/L | [facility] | | [...] | + + + + + | [facility] | [address] | [place] [address] | | | SERVICES, CORE | [address] | | | + + + + + documented in this encounter Visit Diagnoses + + | Diagnosis | + + | Malignant neoplasm of esophagus, unspecified location (HCC) - Primary | + + documented in this encounter"
--- OUTSIDE RECORDS SUMMARY | ~2019-11-23 | XMS | Encounter Summary ---
Demographics + + + | Address | [address] | | | [place] [address] | + + + | Home Phone [...] + + + | Author | [facility] | + + + | Organization | [facility] | + + + | Address [...] Team Providers + +------+ + | Care Personnel Security Assistant Name | Role | Phone | + [...] | +--------+ + + + + | 07/02/ | Telephone | Digestive Health | Eleonora Ybarra, | Treatment Planning | | 2018 | | Center at [facility] [address] | MD [address] | | | | | [address] | Ave [place], [place] | | | | | Mailcode: [place] | [address] | | | | | [facility] and | [phone] | | | | | [facility] [address] | | | | | | [place], [place] | | | | | | [address] | | | | | | [phone] | | | +--------+ + + + [...]
--- OUTSIDE RECORDS SUMMARY | ~2019-11-23 | XMS | Encounter Summary ---
Demographics + + + | Address | [address] | | | [place] [address] | + + + | Home Phone | | + + + | Preferred Language | Unknown | + + + | Marital Status | | + + + | Yazdanism Affiliation | CAT | + + + | Race | White | + + + | Ethnic Group | Not or | + + + Author + + + | Author | [facility] | + + + | Organization | [facility] | + + + | Address [...] Team Providers + +------+ + | Care Shagger Name | Role | Phone | + +------+ + | Christos Olivarez MD | PCP | | + +------+ + Encounter Details +--------+ + + + + | Date | Type | Department | Care Team | Description | +--------+ + + + + | 04/22/ | Clinical | Laboratory at [facility] | | | | 2019 | Support | [address] | | | | | Staff | | | | | | | [address] | | | | | | [phone] | | | +--------+ + + + [...] documented as of this encounter Progress Notes Eleonora Smith RN - 04/22/2019 1:40 PM PDT22 gauge PIV placed in patient s left for earm, using an IV start kit. PIV with excellent blood return. Labs drawn and sent. PIV flus hed with 10 mL NS without any problems. Sterile transparent dressing applied. Patient matthew ated procedure well. documented in this encounter Plan of Treatment Not on filedocumented as of this encounter Procedures + +--------+ + + + | Procedure Name | Priori | Date/Time | Associated Diagnosis | Comments | | | ty | | | | + +--------+ + + + | CBC AND AUTO DIFF - | Routin | 04/22/2019 | Malignant neoplasm | Results for this | | [facility] | e | 12:51 PM | of lower third of | procedure are in the | | | | PDT | esophagus (HCC) | results section. | + +--------+ + + + | TSH W/REFLEX TO FREE | Routin | 04/22/2019 | Malignant neoplasm | Results for this | | T4(IF ABNORMAL) | e | 12:51 PM | of lower third of | procedure are in the | | | | PDT | esophagus (HCC) | results section. | + +--------+ + + + | COMPLETE METABOLIC | Routin | 04/22/2019 | Malignant neoplasm | Results for this | | PANEL - OLP | e | 12:51 PM | of lower third of | procedure are in the | | | | PDT | esophagus (HCC) | results section. | + +--------+ + + + | CBC WITH AUTO DIFF - | Routin | 04/22/2019 | Malignant neoplasm | Results for this | | OLP | e | 12:51 PM | of lower third of | procedure are in the | | | | PDT | esophagus (HCC) | results section. | + +--------+ + + + | [facility] - COMPLETE | Routin | 04/22/2019 | Malignant neoplasm | Results for this | | METABOLIC SET | e | 12:51 PM | of lower third of | procedure are in the | | | | PDT | esophagus (HCC) | results section. | + +--------+ + + + | FREE T4 | Routin | 04/22/2019 | Malignant neoplasm | Results for this | | | e | 12:51 PM | of lower third of | procedure are in the | | | | PDT | esophagus (HCC) | results section. | + +--------+ + + + | T3 TOTAL, SERUM | Routin | 04/22/2019 | Malignant neoplasm | Results for this | | | e | 12:51 PM | of lower third of | procedure are in the | | | | PDT | esophagus (HCC) | results section. | + +--------+ + + + | RESEARCH | Routin | 04/22/2019 | Malignant neoplasm | | | COMMUNICATION #1 - | e | 12:50 PM | of lower third of | | | [place] | | PDT | esophagus (HCC) | | + +--------+ + + + | NURSING | Routin | 04/22/2019 | Malignant neoplasm | | | COMMUNICATION #1 - | e | 12:50 PM | of lower third of | | | [place] | | PDT | esophagus (HCC) | | + +--------+ + + + | LIPASE, PLASMA | Routin | 04/22/2019 | Malignant neoplasm | Results for this | | | e | 12:50 PM | of lower third of | procedure are in the | | | | PDT | esophagus (HCC) | results section. | + +--------+ + + + | LDH TOTAL, PLASMA | Routin | 04/22/2019 | Malignant neoplasm | Results for this | | | e | 12:50 PM | of lower third of | procedure are in the | | | | PDT | esophagus (HCC) | results section. | + +--------+ + + + | AMYLASE, PLASMA | Routin | 04/22/2019 | Malignant neoplasm | Results for this | | | e | 12:50 PM | of lower third of | procedure are in the | | | | PDT | esophagus (HCC) | results section. | + +--------+ + + + documented in this encounter Results FREE T4 (04/22/2019 12:51 PM PDT) + +-------+ + + + | Component | Value | Ref Range | Performed | Pathologist | | | | | At | Signature | + +-------+ + + + | FREE T4 | 0.7 | 0.6 - 1.2 ng/dL | [facility] | | | | | [...] | + + + + + | [facility] | [address] | [place] [address] | | | SERVICES, CORE | [address] | | | + + + + + T3 TOTAL, SERUM (04/22/2019 12:51 PM PDT) + +--------+ + + + | Component | Value | Ref Range | Performed | Pathologist | | | | | At | Signature | + +--------+ + + + | T3, TOTAL | 81 (L) | 87 - 196 ng/dL | [facility] | | | | | | [facility] | | | | | | [place] | | + +--------+ + + + + + | Specimen | + + | Blood - Blood | | (substance) | + + + + + | Narrative | Performed At | + + + | High doses of biotin (>5 mg/day) can interfere with this | [facility] - | | laboratory test. Falsely elevated or decreased lab values may be seen. | [facility] | | Patients should abstain from high dose biotin for 48 hours before | [place] | | having lab tests drawn. | | + + + + + + + + | Performing | Address | City/State/Zipcode | Phone Number | | Organization | | | | + + + + + | [facility] | [address] | [place] [address] | | | [place] | | | | + + + + + CBC AND AUTO DIFF - [facility] (04/22/2019 12:51 PM PDT) + + + + + + | Component | Value | Ref Range | Performed | Pathologist | | | | | At | Signature | + + + + + + | WHITE CELL | 3.26 (L) | 3.50 - 10.80 | [facility] | | | COUNT | | K/cu mm | LABORATORY | | | | | | SERVICES, | | | | | | [facility] + | | | | | | [facility]AL[facility] | | + + + + + + | RED CELL | 3.36 (L) | 4.50 - 6.00 | [facility] | | | COUNT | | M/cu mm | LABORATORY | | | | | | SERVICES, | | | | | | [facility] | [facility] + | | | | | | [facility]AL[facility] | | + + + + + + | HEMOGLOBIN | 11.6 (L) | 13.5 - 17.5 | [facility] | | | | | g/dL | LABORATORY | | | | | | SERVICES, | | | | | | [facility] + | | | | | | [facility]AL[facility] | | + + + + + + | HEMATOCRIT | 33.8 (L) | 41.0 - 53.0 % | [facility] | | | | | | LABORATORY | | | | | | SERVICES, | | | | | | [facility] + | | | | | | [facility]AL[facility] | | + + + + + + | MCV | 100.6 (H) | 80.0 - 100.0 fL | [facility] | | | | | | LABORATORY | | | | | | SERVICES, | | | | | | [facility] + | | | | | | [facility]AL[facility] | | + + + + + + | MCHC | 34.3 | 32.0 - 36.0 | [facility] | | | | | g/dL | LABORATORY | | | | | | SERVICES, | | | | | | [facility] + | | | | | | [facility]AL[facility] | | + + + + + + | RDW SD | 50.6 (H) | 35.1 - 46.3 fL | [facility] | | | | | | LABORATORY | | | | | | SERVICES, | | | | | | [facility] + | | | | | | [facility] | | + + + + + + | PLATELET | 135 (L) | 150 - 400 K/cu | [facility] | | | COUNT | | mm | LABORATORY | | | | | | SERVICES, | | | | | | [facility] + | | | | | | [facility]AL[facility] | | + + + + + + | MPV | 9.4 (L) | 9.7 - 12.3 fL | [...] + + + + | NEUTROPHIL | 49.5 (L) | 50.0 - 70.0 % | [facility] | | | % | | | LABORATORY | | | | | | SERVICES, | | | | | | [facility] | [facility] + | | | | | | [facility]AL[facility] | | + + + + + + | LYMPHOCYTE | 28.5 | 18.0 - 42.0 % | [facility] | | | % | | | LABORATORY | | | | | | SERVICES, | | | | | | [facility] + | | | | | | [facility]AL[facility] | | + + + + + + | MONOCYTE % | 15.6 (H) | 3.5 - 9.0 % | [facility] | | | | | | LABORATORY | | | | | | SERVICES, | | | | | | [facility] | [facility] + | | | | | | [facility]AL[facility] | | + + + + + + | EOS % | 5.2 (H) | 1.0 - 3.0 % | [facility] | | | | | | LABORATORY | | | | | | SERVICES, | | | | | | [facility] | [facility] + | | | | | | [facility]ALING | | + + + + + + | BASO % | 0.9 | 0.0 - 2.0 % | [facility] [...] + + + + | NEUTROPHIL | 1.61 (L) | 1.80 - 7.70 | [facility] | | | # | | K/cu mm | LABORATORY | | | | | | SERVICES, | | | | | | [facility] | | [facility] + | | | | | | HEALING | | + + + + + + | NEUTROPHIL | 1.61 (L)Comment: | 1.80 - 7.70 | [facility] | | | # Prelim | Preliminary automated | K/cu mm | LABORATORY | | | | neutrophil result. | | SERVICES, | | | | Refer to Neutrophil # | | [facility] | | | | for final neutrophil | | HEALTH + | | | | result, which may differ | | HEALING | | | | from this preliminary | | | | | | value. | | | | + + + + + + | LYMPHOCYTE | 0.93 (L) | 1.00 - 4.80 | [facility] | | | # | | K/cu mm | LABORATORY | | | | | | SERVICES, | | | | | | [facility] | [facility] + | | | | | | [facility]ALING | | + + + + + + | MONOCYTE # | 0.51 | 0.10 - 0.90 | [facility] | | | | | K/cu mm | LABORATORY | | | | | | SERVICES, | | | | | | [facility] | | [facility] + | | | | | | [facility]ALING | | + + + + + + | EOS # | 0.17 | 0.00 - 0.50 | [facility] | | | | | K/cu mm | LABORATORY | | | | | | SERVICES, | | | | | | [facility] | | [facility] + | | | | | | HEALING | | + + + + + + | BASO # | 0.03 | 0.00 - 0.10 | [facility] | [...] | + + + + + | [facility] | [address] | [place] [address] | | | [facility] | [facility] | [facility] + [facility]AL[facility] | | | | + + + + + [facility] - COMPLETE METABOLIC SET (04/22/2019 12:51 PM PDT) + +---------+ + + + | Component | Value | Ref Range | Performed | Pathologist | | | | | At | Signature | + +---------+ + + + | GLUCOSE, | 102 (H) | 70 - 99 mg/dL | [facility] | | | PLASMA | | | LABORATORY | | | (LAB) | | | SERVICES, | | | | | | [facility] | [facility] + | | | | | | HEALING | | + +---------+ + + + | BUN, PLASMA | 13 | 6 - 20 mg/dL | [facility] | | | (LAB) | | | LABORATORY | | | | | | SERVICES, | | | | | | [facility] | | | [facility] + | | | | | | HEALING | | + +---------+ + + + | CREATININE | 0.84 | 0.70 - 1.30 | [facility] | | | PLASMA | | mg/dL | LABORATORY | | | (LAB) | | | SERVICES, | | | | | | [facility] | | [facility] + | | | | | | [facility]ALING | | + +---------+ + + + | EGFR | >60 | >60 mL/min | [facility] | | | - | | | LABORATORY | | | [place] | | | SERVICES, | | | | | | [facility] | [facility] + | | | | | | [facility]ALING | | + +---------+ + + + | EGFR NON | >60 | >60 mL/min | [facility] | | | -[place] | | | LABORATORY | | | [place] | | | SERVICES, | | | | | | [facility] | | [facility] + | | | | | | HEALING | | + +---------+ + + + | SODIUM, | 140 | 136 - 145 | [facility] | | | PLASMA | | mmol/L | LABORATORY | | | (LAB) | | | SERVICES, | | | | | | [facility] | [facility] + | | | | | | HEALING | | + +---------+ + + + | POTASSIUM, | 3.4 | 3.4 - 5.0 | [facility] | | | PLASMA | | mmol/L | LABORATORY | | | (LAB) | | | SERVICES, | | | | | | [facility] | | [facility] + | | | | | | HEALING | | + +---------+ + + + | CHLORIDE, | 103 | 97 - 108 mmol/L | [facility] | | | PLASMA | | | LABORATORY | | | (LAB) | | | SERVICES, | | | | | | [facility] | | [facility] + | | | | | | HEALING | | + +---------+ + + + | TOTAL CO2, | 27 | 21 - 32 mmol/L | [facility] | | | PLASMA | | | LABORATORY | | | (LAB) | | | SERVICES, | | | | | | [facility] | [facility] + | | | | | | HEALING | | + +---------+ + + + | CALCIUM, | 8.9 | 8.6 - 10.2 | [facility] | | | PLASMA | | mg/dL | LABORATORY | | | (LAB) | | | SERVICES, | | | | | | [facility] | [facility] + | | | | | | HEALING | | + +---------+ + + + | CALCIUM(ALB | 9.2 | 8.6 - 10.2 | [facility] | | | CORRECTED) | | mg/dL | LABORATORY | | | | | | SERVICES, | | | | | | [facility] | [facility] + | | | | | | HEALING | | + +---------+ + + + | BILIRUBIN | 0.4 | 0.3 - 1.2 mg/dL | [facility] | | | TOTAL | | | LABORATORY | | | | | | SERVICES, | | | | | | [facility] | | | [facility] + | | | | | | HEALING | | + +---------+ + + + | TOTAL | 7.5 | 6.4 - 8.2 g/dL | [facility] | | | PROTEIN, | | | LABORATORY | | | PLASMA | | | SERVICES, | | | (LAB) | | | [facility] | | | | [facility] + | | | | | | HEALING | | + +---------+ + + + | ALBUMIN, | 3.6 | 3.5 - 4.7 g/dL | [facility] | | | PLASMA | | | LABORATORY | | | (LAB) | | | SERVICES, | | | | | | [facility] | [facility] | [facility] + | | | | | | HEALING | | + +---------+ + + + | ALK PHOS | 116 | 56 - 119 U/L | [facility] | | | | | | LABORATORY | | | | | | SERVICES, | | | | | | [facility] | [facility] + | | | | | | HEALING | | + +---------+ + + + | AST(SGOT) | 51 (H) | <=41 U/L | [facility] | [...] + + + | ANION GAP | 10 | 4 - 11 mmol/L | [facility] | | | | | | LABORATORY | | | | | | SERVICES, | | | | | | [facility] | | | [facility] + | | | | | | HEALING | | + +---------+ + + + | ANION | 11 | 4 - 11 mmol/L | [facility] | | | GAP(ALB | | | LABORATORY | | | CORRECTED) | | | SERVICES, | | | | | | [facility] | [facility] | | [facility] + | | | | | | HEALING | | + +---------+ + + + | POTASSIUM | No Hemo | | [facility] | | | CMNT | | | LABORATORY | | | | | | SERVICES, | | | | | | [facility] | | | | | | [facility] + | | | | | | HEALING | | + +---------+ + + + | BILI T CMNT | No Hemo | | [facility] | | | | | | LABORATORY | | | | | | SERVICES, | | | | | | [facility] | | | | | | [facility] + | | | | | | HEALING | | + +---------+ + + + | AST CMNT | No Hemo | | [facility] [...] Performed At | + + + | GFR is estimated using the MDRD equation recommended by the National | [facility] | | Kidney Disease Education Program. Estimated GFR Interpretive | LABORATORY | | Information: <60 mL/min/1.73 sq m Chronic Kidney | SERVICES, | | Disease <15 mL/min/1.73 sq m Kidney Failure | [facility]ENTER FOR | | Estimated GFR greater than 60 mL/min/1.73 sq m is of limited clinical | HEALTH + | | value. The MDRD equation is not valid in the following situations: - | HEALING | | Patients under 18 years of age - Severe malnutrition or obesity - | | | Vegetarian diet - Rapidly changing kidney function - Amputees, | | | paraplegics, or other muscle-wasting diseses | | + + + + + + + + | Performing | Address | City/State/Zipcode | Phone Number | | Organization | | | | + + + + + | [facility] | [address] | [place] [address] | | | SERVICES, [place] [facility] | | | | | HEALTH + HEALING | | | | + + + + + TSH W/REFLEX TO FREE T4(IF ABNORMAL) (04/22/2019 12:51 PM PDT) + + + + + + | Component | Value | Ref Range | Performed | Pathologist | | | | | At | Signature | + + + + + + | TSH | 6.20 (H) | 0.46 - 5.56 | [facility] | | | | | mIU/L | LABORATORY | | | | | | SERVICES, | | | | | | CORE | | + + + + + + + + | Specimen | + + | Blood - Blood | | (substance) | + + + + + | Narrative | Performed At | + + + | TSH reference ranges are influenced by a variety of environmental | [facility] | | influences, age, gender and ethnicity. The supplied reference limits | LABORATORY | | are based on published values utilizing a similar TSH assay, and | SERVICES, CORE | | should be interpreted with caution. | | + + + + + + + + | Performing | Address | City/State/Zipcode | Phone Number | | Organization | | | | + + + + + | [facility] | [address] | [place] [address] | | | SERVICES, [place] | [address] | | | + + + + + LDH TOTAL, PLASMA (04/22/2019 12:50 PM PDT) + +---------+ + + + | Component | Value | Ref Range | Performed | Pathologist | | | | | At | Signature | + +---------+ + + + | LD TOTAL, | 199 | <=250 U/L | [facility] | | | PLASMA | | | LABORATORY | | | | | | SERVICES, | | | | | | CORE | | + +---------+ + + + | LD CMNT | Sl Hemo | | [facility] | | | | | | LABORATORY | | | | | | SERVICES, | | | | | | CORE | | + +---------+ + + + + + | Specimen | + + | Blood - Blood | | (substance) | + + + + + | Narrative | Performed At | + + + | Sample hemolyzed. Results for LD may be inaccurate. Refer to | [facility] | | comment under test. | LABORATORY | | | [place] | + + + + + + + + | Performing | Address | City/State/Zipcode | Phone Number | | Organization | | | | + + + + + | [facility] | [address] | [place] [address] | | | [place] | [address] | | | + + + + + AMYLASE, PLASMA (04/22/2019 12:50 PM PDT) + +-------+ + + + | Component | Value | Ref Range | Performed | Pathologist | | | | | At | Signature | + +-------+ + + + | AMYLASE,KATHY | 39 | 25 - 115 U/L | [facility] [...] | + + + + + | [facility] | [address] | [place] [address] | | | SERVICES, CORE | [address] | | | + + + + + LIPASE, PLASMA (04/22/2019 12:50 PM PDT) + +--------+ + + + | Component | Value | Ref Range | Performed | Pathologist | | | | | At | Signature | + +--------+ + + + | LIPASE | 98 (L) | 152 - 353 U/L | [facility] | | | (LAB) | | | [...] | + + + + + | [facility] | [address] | [place] [address] | | | SERVICES, CORE | [address] | | | + + + + + documented in this encounter Visit Diagnoses + + | Diagnosis | + + | 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
--- OUTSIDE RECORDS SUMMARY | ~2019-11-23 | XMS | Encounter Summary ---
Demographics + + + | Address | [address] | | | [place] [address] | + + + | Home Phone | | + + + | Preferred Language | Unknown | + + + | Marital Status | | + + + | Jew Affiliation | CAT | + + + | Race | White | + + + | Ethnic Group | Not or | + + + Author + + + | Author | [facility] | + + + | Organization | [facility] | + + + | Address [...] Team Providers + +------+ + | Care Contract Preparer Name | Role | Phone | + +------+ + | Christos Olivarez MD | PCP | | + +------+ + Reason for Visit + + + | Reason | Comments | + + + | Immunotherapy | | + + + Encounter Details +--------+ + + + + | Date | Type | Department | Care Team | Description | +--------+ + + + + | 11/27/ | Hospital | Hematology/Medical | [address] | | | 2019 | Encounter | Oncology at [facility] | [address] [place], | | | | | [address] | [place] [address] | | | | | Mailcode: [place] | | | | | | for Health and | | | | | | [facility] [address] | | | | | | [place], [place] | | | | | | [address] | | | | | | [phone] | | | +--------+ + + + [...] documented as of this encounter Progress Notes Coughlin, Anupama, RN - 11/27/2018 12:03 PM PSTChemotherapy Nurse Note Name: Jacob Sapp Date: 11/27/2018 Physician: Agusto Allergies: Jacob is allergic to codeine. Diagnosis: Esophageal Ca Significant Other: family present Nursing Assessment: Fever: no; Diarrhea:No Constipation: No SOB / Cough: no; Rash: no Edema: no; Mucositis: no; Urinary: no; Neuropathy: no; S/S Bleeding: no; Severity (1=Not at all, 2=A little, 3=Quite a bit, 4=Very much) Nausea and/or Vomitin Fatigue: 2 Pain: 2 Location: abdomen Duration: chronic Narrative: Patient here for INV Nivolumab/Placebo. PIV present from prior CT scan today. CBC and CMP reviewed. Positive blood return on IV roby e prior and after infusion. Medication infused with 250ml NS sidearm bag. Pt tolerated wit hout incident. PIV d/c'd and intact. 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 Refer to MAR and Onc Lines and Transfusions doc flowsheet for treatment details. documented in this encounter Plan of Treatment Not on filedocumented as of this encounter Visit Diagnoses + + | Diagnosis | + + | Malignant neoplasm of lower third of esophagus (HCC) Malignant neoplasm of lower | | third of esophagus | + + documented in this encounter Administered Medications + +---------+ +--------+-------+------+ | Medication Order | MAR | Action | Dose | Rate | Site | | | Action | Date | | | | + +---------+ +--------+-------+------+ | INV nivolumab/placebo 240 mg in | New Bag | 11/27/19 | 240 mg | 120 | | | INV NaCl 0.9% IV 240 mg, | | 19 4:10 | | mL/hr | | | intravenous, Administer over 30 | | PM PST | | | | | Minutes, ONCE, 1 dose, 11/27/18 | | | | | | | at 1515, Pt ID: [id number]. | | | | | | | Administer using a 0.2 micron | | | | | | | filter. Flush line with 15-20 mL | | | | | | | of normal saline. For | | | | | | | investigational use only, HIGH | | | | | | | ALERT MEDICATION IRB:[id number], | | | | | | | Protocol:[id number], Infuse using | | | | | | | 0.2 micron filter., | | | | | | + +---------+ +--------+-------+------+ +---+---+ | | | +---+---+ documented in this encounter"
--- OUTSIDE RECORDS SUMMARY | ~2019-11-23 | XMS | Encounter Summary ---
Demographics + + + | Address | [address] | | | [place] [address] | + + + | Home Phone [...] | | + + +---------+ + | lFower Sapp | ECON | Unknown | | + + +---------+ + Care Team Providers + +------+ + | Care Coil Placer Name | Role | Phone | + +------+ + | Christos Olivarez MD | PCP | | + +------+ + Encounter Details +--------+ + + + + | Date | Type | Department | Care Team | Description | +--------+ + + + + | 04/09/ | [facility] | [facility] [address] | Tino Mariscal MD | | | [address] | | [address] | [address] | | | | | [place], [place] | [place], | | | | | [address] | [place] [address] | | | | | [phone] | [phone] | | | | | | | | +--------+ + + + [...]
--- OUTSIDE RECORDS SUMMARY | ~2019-11-23 | XMS | Encounter Summary ---
Demographics + + + | Address | [address] | | | [place] [address] | + + + | Home Phone | | + + + | Preferred Language | Unknown | + + + | Marital Status | | + + + | Jain Affiliation | CAT | + + + | Race | White | + + + | Ethnic Group | Not or | + + + Author + + + | Author | [facility] | + + + | Organization | [facility] | + + + | [...] Team Providers + +------+ + | Care Groundskeeper Supervisor Name | Role | Phone | + +------+ + | Christos Olivarez MD | PCP | | + +------+ + Reason for Visit + + + | Reason | Comments | + + + | Refill Request | LEVOTHYROXINE 25 mcg oral tablet | + + + Encounter Details +--------+--------+ + + + | Date | Type | Department | Care Team | Description | +--------+--------+ + + + | 07/09/ | Refill | Hematology/Medical | Krunal Godoy, | Refill Request | | 2019 | | [facility] | ,PhD [address] | (LEVOTHYROXINE 25 | | | | [facility] | [place], [place] | mcg oral tablet) | | | | [address] | [address] | | | | | Mailcode: [facility] | [phone] | | | | | for Health and | | | | | | Healing, [address] | | | | | | [place], [place] | | | | | | [address] | | | | | | [phone] | | | +--------+--------+ + + + Social History + +-------+ [...]
--- OUTSIDE RECORDS SUMMARY | ~2019-11-23 | XMS | Encounter Summary ---
Demographics + + + | Address | [address] | | | [place] [address] | + + + | Home Phone | | + + + | Preferred Language | Unknown | + + + | Marital Status | | + + + | Mandaeism Affiliation | CAT | + + + | Race | White | + + + | Ethnic Group | Not or | + + + Author + + + | Author | [facility] | + + + | Organization | [facility] | + + + | Address [...] Team Providers + +------+ + | Care Snag Grinder Name | Role | Phone | + +------+ + | Christos Olivarez MD | PCP | | + +------+ + Reason for Visit + + + | Reason | Comments | + + + | Infusion | INV Nivo/Placebo | + + + Encounter Details +--------+ + + + + | Date | Type | Department | Care Team | Description | +--------+ + + + + | 11/12/ | Hospital | Hematology/Medical | [address] | | | 2018 | Encounter | [facility] | [address] [place], | | | | | [address] | [place] [address] | | | | | Mailcode: [place] | | | | | | for Health and | | | | | | [facility] | | | | | | [place], [place] | | | | | | [address] | | | | | | [phone] | | | +--------+ + + + [...] + + + | Blood Pressure | 96/61 | 11/12/2018 1:25 PM | | | | | PST | | + + + + + | Pulse | 72 | 11/12/2018 1:25 PM | | | | | PST | | + + + + + | Temperature | 36.9 C (98.5 F) | 11/12/2018 1:25 PM | | | | | PST | | + + + + + | Respiratory Rate | 16 | 11/12/2018 1:25 PM | | | | | PST | | + + + + + | Oxygen Saturation | 100% | 11/12/2018 1:25 PM | | | | | PST | | + + + + + | Inhaled Oxygen | - | - | | | Concentration | | | | + + + + + | Weight | 65.2 kg (143 lb 11.2 | 11/12/2018 1:25 PM | | | | oz) | PST | | + + + + + | Height | - | - | | + + + + + | Body Mass Index | 21.85 | 09/03/2018 11:47 AM | | | [...] documented as of this encounter Progress Notes Juanita Acharya RN - 11/12/2018 12:40 PM PSTImmunotherapy Nurse Note Name: Jacob Sapp Physician: Dr. Liz Diagnosis: Esophageal Cancer Significant Other: friend at chairside Nursing Assessment: Diarrhea:No, GI pain r/t diverticulosis per pt. He recently completed series of antibx for diverticulosis. PA aware. Constipation: No SOB / Cough: no; Rash: no Edema: no; Mucositis: no; Severity (1=Not at all, 2=A little, 3=Quite a bit, 4=Very much) Nausea and/or Vomitin; intermittent dry heaving r/t post surgical changes Fatigue: 2 Pain: 3 Location: lower abdomen Duration: constant Narrative: Patient here for INV Nivo/placebo. PIV inserted to right forearm, per protocol. CBC and CMP were drawn via PIV, resulted via P OC and reviewed.. Positive blood return on IV line prior and after infusion. Medication infu sed with 250ml NS sidearm bag. Approx 5 minute following the completion of infusion, pt dr scarlet ba and reporting nausea. Per ILIANA [place], pt given 4 mg IV zofran, with relief in sxs . PIV d/c'd and intact. 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 Refer to MAR and Onc Lines and Transfusions doc flowsheet for treatment details. documented in this enc ounter Plan of Treatment Not on filedocumented as of this encounter Procedures + +--------+ + + + | Procedure Name | Priori | Date/Time | Associated Diagnosis | Comments | | | ty | | | | + +--------+ + + + | COMPLETE METABOLIC | Routin | 11/12/2018 | Malignant neoplasm | | | PANEL - OLP | e | 1:58 PM | of lower third of | | | | | PST | esophagus (HCC) | | + +--------+ + + + | CBC WITH AUTO DIFF - | Routin | 11/12/2018 | Malignant neoplasm | | | OLP | e | 1:58 PM | of lower third of | | | | | PST | esophagus (HCC) | | + +--------+ + + + | CBC+DIFF,POC | Routin | 11/12/2018 | Malignant neoplasm | Results for this | | | e | 1:58 PM | of lower third of | procedure are in the | | | | PST | esophagus (HCC) | results section. | + +--------+ + + + | CMP, POC (BMP+LFT) | Routin | 11/12/2018 | Malignant neoplasm | Results for this | | | e | 1:58 PM | of lower third of | procedure are in the | | | | PST | esophagus (HCC) | results section. | + +--------+ + + + | LIPASE, PLASMA | Routin | 11/12/2018 | Malignant neoplasm | Results for this | | | e | 1:17 PM | of esophagus, | procedure are in the | | | | PST | unspecified location | results section. | | | | | (HCC) | | + +--------+ + + + | LDH TOTAL, PLASMA | Routin | 11/12/2018 | Malignant neoplasm | Results for this | | | e | 1:17 PM | of esophagus, | procedure are in the | | | | PST | unspecified location | results section. | | | | | (HCC) | | + +--------+ + + + | AMYLASE, PLASMA | Routin | 11/12/2018 | Malignant neoplasm | Results for this | | | e | 1:17 PM | of esophagus, | procedure are in the | | | | PST | unspecified location | results section. | | | | | (HCC) | | + +--------+ + + + documented in this encounter Results CBC+DIFF,POC (11/12/2018 1:58 PM PST) + + + + + + | Component | Value | Ref Range | Performed | Pathologist | | | | | At | Signature | + + + + + + | WBC POC | 3.2 (L) | 3.5 - 10.8 | [facility] | | | | | 10*3/uL | POINT OF | | | | | | CARE TESTS | | + + + + + + | RBC POC | 3.03 (L) | 4.50 - 6.00 | [facility], | | | | | 10*6/uL | POINT OF | | | | | | CARE TESTS | | + + + + + + | HGB POC | 10.4 (L) | 13.5 - 17.5 | [facility], | | | | | g/dL | POINT OF | | | | | | CARE TESTS | | + + + + + + | HCT POC | 30.4 (L) | 41.0 - 53.0 % | [facility], | | | | | | POINT OF | | | | | | CARE TESTS | | + + + + + + | MCV POC | 100.3 (H) | 80.0 - 100 fL | [facility], | | | | | | POINT OF | | | | | | CARE TESTS | | + + + + + + | MCH POC | 34.3 (H) | 27.0 - 34.0 pg | [facility] | | | | | | POINT OF | | | | | | CARE TESTS | | + + + + + + | MCHC POC | 34.2 | 32.0 - 36.0 | [facility], | | | | | g/dL | POINT OF | | | | | | CARE TESTS | | + + + + + + | RDW SD, POC | 48.1 (H) | 35.1 - 46.3 fL | [facility] | | | | | | POINT OF | | | | | | CARE TESTS | | + + + + + + | PLT POC | 158 | 150 - 400 | [facility] | | | | | 10*3/uL | POINT OF | | | | | | CARE TESTS | | + + + + + + | MPV POC | 9.0 (L) | 9.7 - 12.3 fL | [facility] | | | | | | POINT OF | | | | | | CARE TESTS | | + + + + + + | NEUTROPHIL% | 56.9 | 50.0 - 70.0 % | [facility], | | | POC | | | POINT OF | | | | | | CARE TESTS | | + + + + + + | LYMPH% POC | 29.5 | 18 - 42 % | [facility] | | | | | | POINT OF | | | | | | CARE TESTS | | + + + + + + | MONO %, POC | 10.8 (H) | 3.5 - 9.0 % | [facility], | | | | | | POINT OF | | | | | | CARE TESTS | | + + + + + + | EOS %, POC | 2.2 | 1.0 - 3.0 % | [facility], | | | | | | POINT OF | | | | | | CARE TESTS | | + + + + + + | BASO %, POC | 0.6 | 0.0 - 2.0 % | [facility], | | | | | | POINT OF | | | | | | CARE TESTS | | + + + + + + | NEUTROPHIL# | 1.8 (L) | 1.8 - 7.7 | [facility], | | | POC | | 10*3/uL | POINT OF | | | | | | CARE TESTS | | + + + + + + | LYMPH# POC | 0.9 (L) | 1.0 - 4.8 | [facility], | | | | | 10*3/uL | POINT OF | | | | | | CARE TESTS | | + + + + + + | MONO #, POC | 0.3 | 0.1 - 0.9 | [facility], | | | | | 10*3/uL | POINT OF | | | | | | CARE TESTS | | + + + + + + | EOS #, POC | 0.1 | 0.0 - 0.5 | [facility], | | | | | 10*3/uL | POINT OF | | | | | | CARE TESTS | | + + + + + + | BASO #, POC | 0.0 | 0.0 - 0.1 | [facility], | | | | | 10*3/uL | POINT OF | | | | | | CARE TESTS | | + + + + + + + + | Specimen | + + | Blood - Blood | | (substance) | + + + + + + + | Performing | Address | City/State/Zipcode | Phone Number | | Organization | | | | + + + + + | [facility] | [address] | [place] [address] | | | OF CARE TESTS | | | | + + + + + CMP, POC (BMP+LFT) (11/12/2018 1:58 PM PST) + +---------+ + + + | Component | Value | Ref Range | Performed | Pathologist | | | | | At | Signature | + +---------+ + + + | SODIUM, POC | 142 | 134 - 143 | [facility], | | | | | mmol/L | POINT OF | | | | | | CARE TESTS | | + +---------+ + + + | POTASSIUM, | 3.9 | 3.4 - 5.0 | [facility], | | | POC | | mmol/L | POINT OF | | | | | | CARE TESTS | | + +---------+ + + + | TOTAL CO2, | 29 (H) | 22 - 28 mmol/L | [facility], | | | POC | | | POINT OF | | | | | | CARE TESTS | | + +---------+ + + + | CHLORIDE, | 104 | 97 - 108 mmol/L | [facility], | | | POC | | | POINT OF | | | | | | CARE TESTS | | + +---------+ + + + | GLUCOSE, | 110 (H) | 60 - 99 mg/dL | [facility], | | | POC | | | POINT OF | | | | | | CARE TESTS | | + +---------+ + + + | CALCIUM | 9.3 | 8.6 - 10.2 | [facility], | | | TOTAL, POC | | mg/dL | POINT OF | | | | | | CARE TESTS | | + +---------+ + + + | BUN, POC | 11 | 6 - 20 mg/dL | [facility], | | | | | | POINT OF | | | | | | CARE TESTS | | + +---------+ + + + | CREATININE, | 0.7 | 0.7 - 1.3 mg/dL | [facility], | | | POC | | | POINT OF | | | | | | CARE TESTS | | + +---------+ + + + | ALK PHOS, | 58 | 43 - 92 U/L | [facility], | | | CMP POC | | | POINT OF | | | | | | CARE TESTS | | + +---------+ + + + | ALT, CMP | 34 | 0 - 60 U/L | [facility], | | | POC | | | POINT OF | | | | | | CARE TESTS | | + +---------+ + + + | AST, CMP | 35 | 0 - 41 U/L | [facility], | | | POC | | | POINT OF | | | | | | CARE TESTS | | + +---------+ + + + | BILIRUBIN | 0.6 | 0.3 - 1.2 mg/dL | [facility], | | | TOTAL, CMP | | | POINT OF | | | POC | | | CARE TESTS | | + +---------+ + + + | ALBUMIN, | 3.4 (L) | 3.5 - 4.7 g/dL | [facility], | | | CMP POC | | | POINT OF | | | | | | CARE TESTS | | + +---------+ + + + | PROTEIN | 6.2 (L) | 6.4 - 8.2 g/dL | [facility] | | | TOTAL, CMP | | | POINT OF | | | POC | | | CARE TESTS | | + +---------+ + + + + + | Specimen | + + | Blood | + + + + + + + | Performing | Address | City/State/Zipcode | Phone Number | | Organization | | | | + + + + + | [facility] | [address] | [place] [address] | | | OF CARE TESTS | | | | + + + + + AMYLASE, PLASMA (11/12/2018 1:17 PM PST) + [...] [facility] | [address] | [place] [address] | | | SERVICES, CORE | [address] [...] | + + + + + | [facility] | [address] | [place] [address] | | | SERVICES, CORE | [address] | | | + + + + [...] | + + + + + | [facility] | [address] | [place] [address] | | | SERVICES, CORE | [address] | | | + + + + + documented in this encounter Visit Diagnoses + + | Diagnosis | + + | Malignant neoplasm of lower third of esophagus (HCC) Malignant neoplasm of lower | | third of esophagus | + + | Malignant neoplasm of esophagus, unspecified location (HCC) | + + documented in this encounter Administered Medications + +---------+ +--------+-------+------+ | Medication Order | MAR | Action | Dose | Rate | Site | | | Action | Date | | | | + +---------+ +--------+-------+------+ | INV nivolumab/placebo 240 mg in | New Bag | 11/12/20 | 240 mg | 120 | | | INV NaCl 0.9% IV 240 mg, | | 18 3:35 | | mL/hr | | | intravenous, Administer over 30 | | PM PST | | | | | Minutes, ONCE, 1 dose, Tue | | | | | | | 11/12/18 at 1430, Pt ID: [id number]. | | | | | | | Administer using a 0.2 micron | | | | | | | filter. Flush line with 15-20 mL | | | | | | | of normal saline. For | | | | | | | investigational use only, HIGH | | | | | | | ALERT MEDICATION IRB:[id number], | | | | | | | Protocol:[id number], Infuse using | | | | | | | 0.2 micron filter., | | | | | | + +---------+ +--------+-------+------+ +---+---+ | | | +---+---+ documented in this encounter"
--- OUTSIDE RECORDS SUMMARY | ~2019-11-23 | XMS | Encounter Summary ---
Demographics + + + | Address | [address] | | | [place] [address] | + + + | Home Phone | | + + + | Preferred Language | Unknown | + + + | Marital Status | | + + + | Pentecostalism Affiliation | CAT | + + + [...] Team Providers + +------+ + | Care Grade Tamper Name | Role | Phone | + +------+ + | Luis Leiva DO | PCP | | + +------+ + Reason for Visit + + + | Reason | Comments | + + + | On Treatment Visit | | | (OTV) | | + + + | On Treatment Visit | | | (OTV) | | + + + Encounter Details +--------+---------+ + + + | Date | Type | Department | Care Team | Description | +--------+---------+ + + + | 01/24/ | Office | Radiation Oncology | Daniel Barrera, | Encounter for | | 2018 | Visit | at [facility] [address] | [address] | radiotherapy | | | | [address] | [address] | (Primary Dx) | | | | [id number] | [place], [place] | | | | | [facility], | [address] | | | | | [place] [address] | [phone] | | | | | [phone] | | | +--------+---------+ + + + [...] + + + | Blood Pressure | 115/74 | 01/24/2018 9:12 AM | | | | | PST | | + + + + + | Pulse | 82 | 01/24/2018 9:12 AM | | | | | PST | | + + + + + | Temperature | 36.9 C (98.4 F) | 01/24/2018 9:12 AM | | | | | PST | | + + + + + | Respiratory Rate | 14 | 01/24/2018 9:12 AM | | | | | PST | | + + + + + | Oxygen Saturation | 100% | 01/24/2018 9:12 AM | | | | | PST | | + + + + + | Inhaled Oxygen | - | - | | | Concentration | | | | + + + + + | Weight | 85.3 kg (188 lb 1.6 | 01/24/2018 9:12 AM | | | | oz) | PST | | + + + + + | Height | - | - | | + + + + + | Body Mass Index | 28.6 | 12/06/2017 10:48 AM | | | | | PST | | + + + + + documented in this encounter Progress Notes Daniel Barrera MD - 01/24/2018 9:40 AM PSTFormatting of this note might be different f rom the original. Radiation Oncology - On Treatment Visit Note ID: [id number] y.o. male with [id number] esophageal adenocarcinoma (7 LN) 36-44cm from the incisors, 2 .4cm thick. Upon gastric-deconditioning surgery and J-tube placement, the gastric/esophageal tumor was very desmoplastic and fibrotic, with concerns of a challenging surgical resection , but he is still a surgical candidate. We plan on treating him to 45 Gy in 25 fractions wit h a concurrent boost to the ITV to 50 Gy in 25 fractions with carbo/taxol. He is here today during treatment for an on treatment visit. Planned Total RT Dose: 50 Gy. Current Fraction: 21 of 25. Concurrent Chemotherapy: carbo/taxol SUBJECTIVE: Nausea more controlled. Epigastric discomfort. Fatigue. OBJECTIVE: Vital Signs: BP 115/74 | Pulse 82 | Temp 36.9 C (98.4 F) | RR 14 | Wt 85.3 kg (188 lb 1 .6 oz) | SpO2 100% | BMI 28.6 kg/(m^2) Pain Score: 1 Wt Readings from Last 3 Encounters: 01/24/18 85.3 kg (188 lb 1.6 oz) 01/17/18 89.1 kg (196 lb 6.4 oz) 01/08/18 90.7 kg (200 lb) Jacob Sapp's mode of transportation is ambulatory. Skin: no erythema. ASSESSMENT/PLAN: Finishing with chemoRT on Sun. Followup in 4 weeks following re-staging PET/CT. The patient's chart and films were reviewed. Cont RT. DANIEL BARRERA MD April Stacy MA - 01/24/2018 9:06 AM PST Nursing Note Patient here for an On Treatment Visit. Completed 21 fractions of a planned 25. Current dose 4200 cGy of total 5000 cGy. Vitals/Pain Level: BP 115/74 | Pulse 82 | Temp 36.9 C (98.4 F) | RR 14 | Wt 85.3 kg (18 8 lb 1.6 oz) | SpO2 100% | BMI 28.6 kg/(m^2) Pain Score: Wt Readings from Last 3 Encounters: 01/24/18 85.3 kg (188 lb 1.6 oz) 01/17/18 89.1 kg (196 lb 6.4 oz) 01/08/18 90.7 kg (200 lb) No results for input(s): WBC, HB, HCT, PLT, BUN, CR, NA, K, MG in the last 720 hours. documented in this enc ounter Plan of Treatment Not on filedocumented as of this encounter Visit Diagnoses + + | Diagnosis | + + | Encounter for radiotherapy - Primary Radiotherapy | + + documented in this encounter"
--- OUTSIDE RECORDS SUMMARY | ~2019-11-23 | XMS | Encounter Summary ---
Demographics + + + | Address | [address] | | | [place] [address] | + + + | Home Phone | | + + + | Preferred Language | Unknown | + + + | Marital Status | | + + + | Baptist Affiliation | CAT | + + + | Race | White | + + + | Ethnic Group | Not or | + + + Author + + + | Author | [facility] | + + + | Organization | [facility] | + + + | [...] Team Providers + +------+ + | Care Parking Lot Chauffeur Name | Role | Phone | + +------+ + | Christos Olivarez MD | PCP | | + +------+ + Encounter Details +--------+ + + + + | Date | Type | Department | Care Team | Description | +--------+ + + + + | 09/26/ | Unpaid Intern | Hematology | Marie Liz, | Malignant neoplasm | | 2018 | | Oncology Study [address] | [address] | of lower third of | | | | [address] | [address] | esophagus (HCC) | | | | Mailcode: CH7M | [place] [address] | (Primary Dx) | | | | [facility] | [phone] | | | | | and [place], | | | | | | [facility] | | | | | | Floor [place], [place] | | | | | | [address] | | | | | | [phone] | | | +--------+ + + + [...] on filedocumented as of this encounter Results URINE, MICROSCOPIC EXAM (10/01/2018 [...] [facility] | [address] | [place] [address] | | | SERVICES, CORE | [address] [...] [facility] | [address] | [place] [address] | | | SERVICES, CORE | [address] [...] + + + + + | [facility] [employer] | [address] | [place] [address] | | | SERVICES, CORE | [address] | | | + + + + + AIDAN PRATHER (10/01/2018 10:51 AM PST) + + + [...] | [facility] | | | [facility]RA[facility] | [place] performed by | | LABORATORY | | [...] | + + + + + | [facility] | [address] | [place] [address] | | | SERVICES, CORE | [address] [...] + + | [facility] | [address] | [place] [address] | | | SERVICES, CORE | [address] | | | + + + + + documented in this encounter Visit Diagnoses + + | Diagnosis | + + | 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
--- OUTSIDE RECORDS SUMMARY | ~2019-11-23 | XMS | Encounter Summary ---
Demographics + + + | Address | [address] | | | [place] [address] | + + + | Home Phone [...] Team Providers + +------+ + | Care Phlebotomy Director Name | Role | Phone | + [...] | | | neoplasm of | ,PhD [phone] | | | | | | lower third | [address] | | | | | | of esophagus | [place], | | | | | | ([facility]) | [place] | | | | | | Procedures | [id number] | | | | | | PET CT SKULL | Phone: | | | | | | BASE TO | [phone] | | | | | | [place] | Fax: | | | | | | | [phone] | | + +--------+ + + + [...] | | | | of esophagus | [place], | | | | | | ([facility]) | [place] | | | | | | Procedures | [address] | | | | | | PET CT SKULL | Phone: | | | | | | BASE TO | [phone] | | | | | | [place] | Fax: | | | | | | | [phone] | | + +--------+ + + + + Encounter Details +--------+ + + + + | Date | Type | Department | Care Team | Description | +--------+ + + + + | 08/15/ | Hospital | [facility] | Krunal Godoy, | | | 2019 | Encounter | [place] [facility] | ,PhD [address] | | | | | [place] [address] [address] | [place], [place] | | | | | [facility] | [address] | | | | | [place], [place] | [phone] | | | | | [address] | | | | | | [phone] | | | +--------+ + + + [...] | + +--------+ + + + | PET CT SKULL BASE TO | Routin | 08/15/2019 | Malignant neoplasm | Results for this | | [place]HS | e | 4:33 PM | of lower third of | procedure are in the | | | | PDT | esophagus (HCC) | results section. | + +--------+ + + + | ORDERS OTHER | | 08/15/2019 | | Results for this | | | | 12:00 AM | | procedure are in the | | | | PDT | | results section. | + +--------+ + + + documented in this encounter Results PET CT SKULL BASE TO MID-THIGHS (08/15/2019 4:33 PM PDT) + + | Specimen | + + | | + + + + + | Narrative | Performed At | + + + | 18-F FDG PET-CT: 08/15/2019 4:33 PM CLINICAL HISTORY: 69 years of | [facility] | | age, Male, with history of esophageal adenocarcinoma status post | RADIOLOGY VOICE | | esophagectomy and gastric pull-through 05/14/2018, referred for disease | RECOGNITION 2 | | surveillance. PET treatment strategy: Subsequent COMPARISON: | | | Outside PET/CT 02/26/2018 TECHNIQUE: Radiopharmaceutical: 10.9 | | | mCi of 18-F FDG, injected via a right antecubital intravenous | | | injection. Anatomical region: skull base to mid thighs. After 60 | | | minutes in quiet conditions, a low-dose, non-contrast CT scan was | | | performed for attenuation correction and anatomic localization. | | | Immediately following, and without moving the patient, PET imaging was | | | performed. Axial, sagittal, and coronal images were available for | | | review. The blood glucose level at the time of injection was not | | | obtained as the patient is not diabetic. FINDINGS: Head and | | | neck: Limited evaluation of the brain demonstrates intense FDG | | | uptake in the visualized cerebral cortex wise matter. Physiologic | | | FDG uptake is seen in the ocular muscles, salivary glands, oropharynx, | | | and vocal cords. There are no pathologically enlarged or | | | hypermetabolic lymph nodes. Thorax: There are no pathologically | | | enlarged or hypermetabolic axillary, mediastinal, or hilar lymph | | | nodes. Postsurgical changes of esophagectomy and gastric | | | pull-through. There are several subcentimeter pulmonary nodules: | | | -Right upper lobe nodule measuring 5 mm, with mild uptake (SUV max of | | | 1.3) -Left lower lobe nodule measuring 5 mm without definite uptake. | | | -Left lower lobe subpleural nodule measuring 9 mm, with mild uptake | | | (SUV max 2.1) -Right lower lobe subpleural nodule measuring 4 mm , | | | with mild uptake. -There is a focal soft tissue thickening at the | | | eso-gastric anastomotic site with focal uptake measuring up to 5.6 max | | | SUV (image 85) Abdomen and pelvis: Physiologic FDG uptake is | | | present in the liver, spleen, and bowel. The left adrenal gland and | | | pancreas are unremarkable on the non-contrast CT. Hypermetabolic | | | lesion of the right adrenal gland with SUV max of 5.2. Physiologic | | | radiotracer clearance in the kidneys, ureters, and urinary bladder. | | | Intense signal from excreted tracer limits evaluation for malignancy | | | in the urinary tract. The abdominal aorta is normal in caliber. | | | There are no pathologically enlarged or hypermetabolic abdominal, | | | pelvic, or inguinal lymph nodes. Right lower quadrant abdominal wall | | | hypermetabolic lesion with SUV max of 6.7. There is a focus of uptake | | | in the left aspect of the prostate gland with SUV max of 5.8, | | | nonspecific. Musculoskeletal: Physiologic FDG uptake is | | | present in the axial and proximal appendicular skeleton. No | | | suspicious lytic or sclerotic osseous lesions are visualized on the | | | CT. Focal uptake at the tip of the C6 spinous process is most likely | | | degenerative in etiology. With SUV max of 3.7 focus of uptake in the | | | proximal right humerus with suspected corresponding lytic changes on | | | CT. IMPRESSION: 1. Focal FDG avid soft tissue thickening | | | at the eso-gastric anastomotic site is highly concerning for local | | | disease recurrence. 2. Hypermetabolic right adrenal lesion, | | | right lower quadrant abdominal wall lesion, and multiple subcentimeter | | | pulmonary nodules are consistent with metastatic disease. 3. | | | Proximal right humerus focus of uptake with suspected lytic changes | | | on CT, concerning for osseous metastasis. 4. Focal uptake within | | | the left prostate gland is nonspecific, could be inflammatory or | | | malignant, consider correlation to PSA levels. I have personally | | | reviewed the images and, if necessary, edited the report. I agree with | | | the report as now presented. Final signature: Nasreen Lebron MD | | | 08/18/2019 8:44 PM Preliminary: Dominick Rocha MD 08/18/2019 | | | 11:10 AM Dictation initiated: Dominick Rocha MD 08/15/2019 4:24 | | | PM | | + + + + + | Procedure Note | + + | Service Account, Radiant Res In Interface - 08/18/2019 8:45 PM PDT 18-F FDG PET-CT: | | 08/15/2019 4:33 PM CLINICAL HISTORY: 69 years of age, Male, with history of esophageal | | adenocarcinoma status post esophagectomy and gastric pull-through 05/14/2018, referred | | for disease surveillance. PET treatment strategy: Subsequent COMPARISON: Outside PET/CT | | 02/26/2018 TECHNIQUE: Radiopharmaceutical: 10.9 mCi of 18-F FDG, injected via a right | | antecubital intravenous injection. Anatomical region: skull base to mid thighs.After 60 | | minutes in quiet conditions, a low-dose, non-contrast CT scan was performed for | | attenuation correction and anatomic localization. Immediately following, and without | | moving the patient, PET imaging was performed. Axial, sagittal, and coronal images were | | available for review. The blood glucose level at the time of injection was not obtained | | as the patient is not diabetic. FINDINGS: Head and neck: Limited evaluation of the brain | | demonstrates intense FDG uptake in the visualized cerebral cortex wise matter. | | Physiologic FDG uptake is seen in the ocular muscles, salivary glands, oropharynx, and | | vocal cords. There are no pathologically enlarged or hypermetabolic lymph nodes. | | Thorax: There are no pathologically enlarged or hypermetabolic axillary, mediastinal, or | | hilar lymph nodes.Postsurgical changes of esophagectomy and gastric pull-through.There | | are several subcentimeter pulmonary nodules:-Right upper lobe nodule measuring 5 mm, | | with mild uptake (SUV max of 1.3) -Left lower lobe nodule measuring 5 mm without | | definite uptake.-Left lower lobe subpleural nodule measuring 9 mm, with mild uptake (SUV | | max 2.1) -Right lower lobe subpleural nodule measuring 4 mm , with mild uptake. -There | | is a focal soft tissue thickening at the eso-gastric anastomotic site with focal uptake | | measuring up to 5.6 max SUV (image 85) Abdomen and pelvis: Physiologic FDG uptake is | | present in the liver, spleen, and bowel. The left adrenal gland and pancreas are | | unremarkable on the non-contrast CT. Hypermetabolic lesion of the right adrenal gland | | with SUV max of 5.2.Physiologic radiotracer clearance in the kidneys, ureters, and | | urinary bladder. Intense signal from excreted tracer limits evaluation for malignancy in | | the urinary tract. The abdominal aorta is normal in caliber. There are no | | pathologically enlarged or hypermetabolic abdominal, pelvic, or inguinal lymph | | nodes.Right lower quadrant abdominal wall hypermetabolic lesion with SUV max of | | 6.7.There is a focus of uptake in the left aspect of the prostate gland with SUV max of | | 5.8, nonspecific. Musculoskeletal: Physiologic FDG uptake is present in the axial and | | proximal appendicular skeleton. No suspicious lytic or sclerotic osseous lesions are | | visualized on the CT.Focal uptake at the tip of the C6 spinous process is most likely | | degenerative in etiology.With SUV max of 3.7 focus of uptake in the proximal right | | humerus with suspected corresponding lytic changes on CT. IMPRESSION: 1. Focal FDG | | avid soft tissue thickening at the eso-gastric anastomotic site is highly concerning for | | local disease recurrence. 2. Hypermetabolic right adrenal lesion, right lower quadrant | | abdominal wall lesion, and multiple subcentimeter pulmonary nodules are consistent with | | metastatic disease. 3. Proximal right humerus focus of uptake with suspected lytic | | changes on CT, concerning for osseous metastasis. 4. Focal uptake within the left | | prostate gland is nonspecific, could be inflammatory or malignant, consider correlation | | to PSA levels. I have personally reviewed the images and, if necessary, edited the | | report. I agree with the report as now presented. Final signature: Nasreen Lebron MD | | 08/18/2019 8:44 PM Preliminary: Dominick Rocha MD 08/18/2019 11:10 AM Dictation | | initiated: Dominick Rocha MD 08/15/2019 4:24 PM | |Focal uptake at the tip of the C6 spinous process is most likely degenerative in etiology. | |With SUV max of 3.7 focus of uptake in the proximal right humerus with suspected correspond ing lytic changes on CT. | | | | | |IMPRESSION: | | | |1. Focal FDG avid soft tissue thickening at the eso-gastric anastomotic site is highly con cerning for local disease recurrence. | | | |2. Hypermetabolic right adrenal lesion, right lower quadrant abdominal wall lesion, and mu ltiple subcentimeter pulmonary nodules are consistent with metastatic disease. | | | |3. Proximal right humerus focus of uptake with suspected lytic changes on CT, concerning f or osseous metastasis. | | | |4. Focal uptake within the left prostate gland is nonspecific, could be inflammatory or mal ignant, consider correlation to PSA levels. | | | |I have personally reviewed the images and, if necessary, edited the report. I agree with e report as now presented. | | | |Final signature: Nasreen Lebron MD 08/18/2019 8:44 PM | |Preliminary: Dominick Rocha MD 08/18/2019 11:10 AM | |Dictation initiated: Dominick Rocha MD 08/15/2019 4:24 PM | + + + +---------+ + + | Performing | Address | City/State/Zipcode | Phone Number | | Organization | | | | + +---------+ + + | [facility] | | | | | VOICE RECOGNITION 2 | | | | + +---------+ + + ORDERS OTHER (08/15/2019 12:00 AM PDT) + + + | Narrative | Performed At | + + + | | | + + + documented in this encounter Visit Diagnoses + + | Diagnosis | + + | Malignant neoplasm of lower third of esophagus (HCC) Malignant neoplasm of lower | | third of esophagus | + + documented in this encounter"
--- OUTSIDE RECORDS SUMMARY | ~2019-11-23 | XMS | Encounter Summary ---
Demographics + + + | Address | [address] | | | [place] [address] | + + + | Home Phone | | + + + | Preferred Language | Unknown | + + + | Marital Status | | + + + | Presybeterian Affiliation | CAT | + + + [...] Providers + +------+ + | Care Manager Flight Name | Role | Phone | + +------+ + | Christos Olivarez MD | PCP | | + +------+ + Reason for Visit + + + | Reason | Comments | + + + | Research | Patient declined Safety Follow-Up visits. | | Documentation | | + + + Encounter Details +--------+ + + + + | Date | Type | Department | Care Team | Description | +--------+ + + + + | 09/03/ | Telephone | Hematology | Rebecca Booth | Research | | 2019 | | Oncology Study [address] | [address] | Documentation | | | | [address] | [facility], | (Patient declined | | | | Mailcode: [id number] | [place] [phone] | Safety Follow-Up | | | | [facility] | | visits.) | | | | and Healing, | | | | | | [facility] [address] [facility] | | | | | | [place], [place] | | | | | | [address] | | | | | | [phone] | | | +--------+ + + + [...]
--- OUTSIDE RECORDS SUMMARY | ~2019-11-23 | XMS | Encounter Summary ---
Demographics + + + | Address | [address] | | | [place] [address] | + + + | Home Phone | | + + + | Preferred Language | Unknown | + + + | Marital Status | | + + + | Mormonism Affiliation | CAT | + + + [...] Team Providers + +------+ + | Care Mining Engineer Name | Role | Phone | + +------+ + | Christos Olivarez MD | PCP | | + +------+ + Encounter Details +--------+ + + + + | Date | Type | Department | Care Team | Description | +--------+ + + + + | 02/04/ | Procedure | Diagnostic Imaging | | | | 2019 | Pass | Services at [facility] | | | | | | [address] | | | | | | [place] Mailcode: | | | | | | [id number] [facility] | | | | | | [place], [place] | | | | | | [address] | | | | | | [phone] | | | +--------+ + + + [...]
--- OUTSIDE RECORDS SUMMARY | ~2019-11-23 | XMS | Encounter Summary ---
Demographics + + + | Address | [address] | | | [place] [address] | + + + | Home Phone | | + + + | Preferred Language | Unknown | + + + | Marital Status | | + + + | Mandaen Affiliation | CAT | + + + [...] Team Providers + +------+ + | Care General I Farmworker Name | Role | Phone | + +------+ + | Christos Olivarez MD | PCP | | + +------+ + Encounter Details +--------+ + + + + | Date | Type | Department | Care Team | Description | +--------+ + + + + | 01/19/ | [employer] | Hematology/Medical | Krunal Godoy, | | | 2019 | | Oncology at [place] | ,PhD [address] | | | | | [facility] | [place], [place] | | | | | [address] | [address] | | | | | Mailcode: [place] | [phone] | | | | | for Health and | | | | | | [facility] [address] | | | | | | [place], [place] | | | | | | [address] | | | | | | [phone] | | | +--------+ + + + [...]
--- OUTSIDE RECORDS SUMMARY | ~2019-11-23 | XMS | Encounter Summary ---
Demographics + + + | Address | [address] | | | [place] [address] | + + + | Home Phone | | + + + | Preferred Language | Unknown | + + + | Marital Status | | + + + | Zoroastrianism Affiliation | CAT | + + + [...] Team Providers + +------+ + | Care Spray Worker Name | Role | Phone | [...] | +--------+ + + + + | 03/26/ | Hospital | Hematology/Medical | Rn, Fast Track | | | 2019 | Encounter | [facility] | [address] | | | | | [address] | [place] [address] | | | | | Mailcode: [place] | | | | | | for Health and | | | | | | Healing, [place] [address] | | | | | | [place], [place] | | | | | | [address] | | | | | | [phone] | | | +--------+ + + + [...] documented as of this encounter Progress Notes Jeffery, MARIAJOSE Fernandez - 03/26/2019 9:45 AM PDT22g PIV placed in R forearm. Labs drawn via P IV and sent to lab. Pt tolerated without incident. Pt discharged to provider visit.Mo crawley signed by Rebecca Gil RN at 03/26/2019 10:17 AM PDTdocumented in this encounter Plan of Treatment Not on filedocumented as of this encounter Procedures + +--------+ + + + | Procedure Name | Priori | Date/Time | Associated Diagnosis | Comments | | | ty | | | | + +--------+ + + + | CBC AND AUTO DIFF | Routin | 03/26/2019 | Malignant neoplasm | Results for this | | | e | 9:55 AM | of lower third of | procedure are in the | | | | PDT | esophagus (HCC) | results section. | + +--------+ + + + | [facility] - COMPLETE | Routin | 03/26/2019 | Malignant neoplasm | Results for this | | METABOLIC SET | e | 9:55 AM | of lower third of | procedure are in the | | | | PDT | esophagus (HCC) | results section. | + +--------+ + + + | [facility] CBC W | Routin | 03/26/2019 | Malignant neoplasm | Results for this | | DIFFERENTIAL | e | 9:55 AM | of lower third of | procedure are in the | | | | PDT | esophagus (HCC) | results section. | + +--------+ + + + | LIPASE, PLASMA | Routin | 03/26/2019 | Malignant neoplasm | Results for this | | | e | 9:55 AM | of lower third of | procedure are in the | | | | PDT | esophagus (HCC) | results section. | + +--------+ + + + | LDH TOTAL, PLASMA | Routin | 03/26/2019 | Malignant neoplasm | Results for this | | | e | 9:55 AM | of lower third of | procedure are in the | | | | PDT | esophagus (HCC) | results section. | + +--------+ + + + | AMYLASE, PLASMA | Routin | 03/26/2019 | Malignant neoplasm | Results for this | | | e | 9:55 AM | of lower third of | procedure are in the | | | | PDT | esophagus (HCC) | results section. | + +--------+ + + + documented in this encounter Results CBC AND AUTO DIFF (03/26/2019 9:55 AM PDT) + + + + + + | Component | Value | Ref Range | Performed | Pathologist | | | | | At | Signature | + + + + + + | WHITE CELL | 4.03 | 3.50 - 10.80 | [facility] | | | COUNT | | K/cu mm | LABORATORY | | | | | | SERVICES, | | | | | | [facility] | | | | | | [facility] | | + + + + + + | RED CELL | 3.02 (L) | 4.50 - 6.00 | [facility] | | | COUNT | | M/cu mm | LABORATORY | | | | | | SERVICES, | | | | | | [facility] + | | | | | | [facility] | | + + + + + + | HEMOGLOBIN | 10.5 (L) | 13.5 - 17.5 | [facility] | | | | | g/dL | LABORATORY | | | | | | SERVICES, | | | | | | [facility] + | | | | | | [facility] | | + + + + + + | HEMATOCRIT | 30.5 (L) | 41.0 - 53.0 % | [facility] | | | | | | LABORATORY | | | | | | SERVICES, | | | | | | [facility] + | | | | | | [facility] | | + + + + + + | MCV | 101.0 (H) | 80.0 - 100.0 fL | [facility] | | | | | | LABORATORY | | | | | | SERVICES, | | | | | | [facility] + | | | | | | [facility] | | + + + + + + | MCHC | 34.4 | 32.0 - 36.0 | [facility] | | | | | g/dL | LABORATORY | | | | | | SERVICES, | | | | | | [facility] + | | | | | | [facility] | | + + + + + + | RDW SD | 51.8 (H) | 35.1 - 46.3 fL | [facility] | | | | | | LABORATORY | | | | | | SERVICES, | | | | | | [facility] + | | | | | | [facility] | | + + + + + + | PLATELET | 161 | 150 - 400 K/cu | [facility] | | | COUNT | | mm | LABORATORY | | | | | | SERVICES, | | | | | | [facility] + | | | | | | [facility] | | + + + + + + | MPV | 9.3 (L) | 9.7 - 12.3 fL | [...] + + + + | NEUTROPHIL | 65.4 | 50.0 - 70.0 % | [facility] | | | % | | | LABORATORY | | | | | | SERVICES, | | | | | | [facility] + | | | | | | [facility]AL[facility] | | + + + + + + | LYMPHOCYTE | 20.8 | 18.0 - 42.0 % | [facility] | | | % | | | LABORATORY | | | | | | SERVICES, | | | | | | [facility] + | | | | | | [facility]ALING | | + + + + + + | MONOCYTE % | 7.9 | 3.5 - 9.0 % | [facility] | | | | | | LABORATORY | | | | | | SERVICES, | | | | | | [facility] + | | | | | | [facility]AL[facility] | | + + + + + + | EOS % | 5.0 (H) | 1.0 - 3.0 % | [facility] | | | | | | LABORATORY | | | | | | SERVICES, | | | | | | [facility] | [facility] + | | | | | | [facility]ALING | | + + + + + + | BASO % | 0.7 | 0.0 - 2.0 % | [facility] | | | | | | LABORATORY | | | | | | SERVICES, | | | | | | [facility] | [facility] + | | | | | | [facility]ALING | | + + + + + + | IG% | 0.2Comment: Increased | 0.0 - 1.0 % | [...] + + + + | NEUTROPHIL | 2.63 | 1.80 - 7.70 | [facility] | | | # | | K/cu mm | LABORATORY | | | | | | SERVICES, | | | | | | [facility] + | | | | | | [facility]ALING | | + + + + + + | NEUTROPHIL | 2.63Comment: Preliminary | 1.80 - 7.70 | [facility] [...] + + + + | LYMPHOCYTE | 0.84 (L) | 1.00 - 4.80 | [facility] | | | # | | K/cu mm | LABORATORY | | | | | | SERVICES, | | | | | | [facility] + | | | | | | [facility]ALING | | + + + + + + | MONOCYTE # | 0.32 | 0.10 - 0.90 | [facility] | | | | | K/cu mm | LABORATORY | | | | | | SERVICES, | | | | | | [facility] | [facility] + | | | | | | HEALING | | + + + + + + | EOS # | 0.20 | 0.00 - 0.50 | [facility] | [...] SERVICES, | | | | | | [facility] | | | | | | HEALTH + | | | | | | HEALING | | + + + + + + + + | Specimen | + + | Blood - Blood | | (substance) | + + + + + | Narrative | Performed At | + + + | Increased immature granulocytes (IG) define a left shift. | [facility] | | Immature granulocytes (IG) are an automated count of metamyelocytes, | LABORATORY | | myelocytes and promyelocytes. Bands are not included in the IG count. | SERVICES, | | Bands are included in the neutrophil count. | [facility] + | | | [facility]ALING | + + + + + + + + | Performing | Address | City/State/Zipcode | Phone Number | | Organization | | | | + + + + + | [facility] | [address] | [place] [address] | | | SERVICES, [facility] | | | | | HEALTH + HEALING | | | | + + + + + AMYLASE, PLASMA (03/26/2019 9:55 AM PDT) + +-------+ + + + | Component | Value | Ref Range | Performed | Pathologist | | | | | At | Signature | + +-------+ + + + | AMYLASE,KATHY | 63 | 25 - 115 U/L | [facility] [...] [facility] | [address] | [place] [address] | | | SERVICES, CORE | [address] | | | + + + + + LIPASE, PLASMA (03/26/2019 9:55 AM PDT) + +---------+ + + + | Component | Value | Ref Range | Performed | Pathologist | | | | | At | Signature | + +---------+ + + + | LIPASE | 464 (H) | 152 - 353 U/L | [facility] [...] [facility] | [address] | [place] [address] | | | SERVICES, CORE | [address] | | | + + + + + LDH TOTAL, PLASMA (03/26/2019 9:55 AM PDT) + +---------+ + + + | Component | Value | Ref Range | Performed | Pathologist | | | | | At | Signature | + +---------+ + + + | LD TOTAL, | 220 | <=250 U/L | [facility] | | [...] | + + + + + | [facility] | [address] | [place] [address] | | | SERVICES, CORE | [address] | | | + + + + + [facility] - COMPLETE METABOLIC SET (03/26/2019 9:55 AM PDT) + + + + + + | Component | Value | Ref Range | Performed | Pathologist | | | | | At | Signature | + + + + + + | GLUCOSE, | 102 [...] + + + | BUN, PLASMA | 7 | 6 - 20 mg/dL | [facility] [...] + + + + | SODIUM, | 139 | 134 - 143 | [facility] | | | PLASMA | | mmol/L | LABORATORY | | | (LAB) | | | SERVICES, | | | | | | [facility] | [facility] | | [facility] + | | | | | | HEALING | | + + + + + + | POTASSIUM, | 3.8 | 3.4 - 5.0 | [facility] | | | PLASMA | | mmol/L | LABORATORY | | | (LAB) | | | SERVICES, | | | | | | [facility] | | | [facility] + | | | | | | HEALING | | + + + + + + | CHLORIDE, | 102 | 97 - 108 mmol/L | [facility] | | | PLASMA | | | LABORATORY | | | (LAB) | | | SERVICES, | | | | | | [facility] | [facility] | | [facility] + | | | | | | HEALING | | + + + + + + | TOTAL CO2, | 28 | 22 - 29 mmol/L | [facility] | | | PLASMA | | | LABORATORY | | | (LAB) | | | SERVICES, | | | | | | [facility] | | | | | | [facility] + | | | | | | HEALING | | + + + + + + | CALCIUM, | 9.1 | 8.6 - 10.2 | [facility] | | | PLASMA | | mg/dL | LABORATORY | | | (LAB) | | | SERVICES, | | | | | | [facility] | | | | [facility] + | | | | | | HEALING | | + + + + + + | CALCIUM(ALB | 9.6 | 8.6 - 10.2 | [facility] | | | CORRECTED) | | mg/dL | LABORATORY | | | | | | SERVICES, | | | | | | [facility] | | | | [facility] + | | | | | | HEALING | | + + + + + + | BILIRUBIN | 0.6 | 0.3 - 1.2 mg/dL | [facility] | | | TOTAL | | | LABORATORY | | | | | | SERVICES, | | | | | | [facility] | | | | | | [facility] + | | | | | | HEALING | | + + + + + + | TOTAL | 6.8 | 6.1 - 7.9 g/dL | [facility] | | | PROTEIN, | | | LABORATORY | | | PLASMA | | | SERVICES, | | | (LAB) | | | [facility] | | | | | | [facility] + | | | | | | HEALING | | + + + + + + | ALBUMIN, | 3.4 [...] + + + | ALK PHOS | 86 | 43 - 92 U/L | [facility] | | | | | | LABORATORY | | | | | | SERVICES, | | | | | | [facility] | | | | | | [facility] + | | | | | | HEALING | | + + + + + + | AST(SGOT) | 116 (H) | <=41 U/L | [facility] | | | | | | LABORATORY | | | | | | SERVICES, | | | | | | [facility] | [facility] | | | | [facility] + | | | | | | HEALING | | + + + + + + | ALT (SGPT) | 80 (H) | <=60 U/L | [facility] | [...] + + + + + | [facility] | [address] | [place] [address] | | | [facility] | | | | | [...]
--- OUTSIDE RECORDS SUMMARY | ~2019-11-23 | XMS | Encounter Summary ---
Demographics + + + | Address | [address] | | | [place] [address] | + + + | Home Phone | | + + + | Preferred Language | Unknown | + + + | Marital Status | | + + + | Zoroastrian Affiliation | CAT | + + + | Race | White | + + + | Ethnic Group | Not or | + + + Author + + + | Author | [facility] | + + + | Organization | [facility] | + + + | Address [...] Team Providers + +------+ + | Care Product Safety Technician Name | Role | Phone | + +------+ + | Christos Olivarze MD | PCP | | + +------+ + Encounter Details +--------+ + + + + | Date | Type | Department | Care Team | Description | +--------+ + + + + | 07/22/ | Telephone | Digestive Health | Eleonora Ybarra, | | | 2017 | | [facility] [address] | [address] | | | | | [address] | [place], [place] | | | | | Mailcode: [place] | [address] | | | | | for Health and | [phone] | | | | | Healing, [address] | | | | | | [place], [place] | | | | | | [address] | | | | | | [phone] | | | +--------+ + + + [...]
--- OUTSIDE RECORDS SUMMARY | ~2019-11-23 | XMS | Encounter Summary ---
Demographics + + + | Address | [address] | | | [place] [address] | + + + | Home Phone | | + + + | Preferred Language | Unknown | + + + | Marital Status | | + + + | Yazidism Affiliation | CAT | + + + [...] Team Providers + +------+ + | Care Liquid Waste Treatment Plant Operator Name | Role | Phone | [...] | [address] | [address] [facility] | | | | | lower third | [facility] | [facility] | | | | | of esophagus | [facility] | Rd | | | | | Esophagus | Road | [facility] [place] | | | | | Ca | [facility] [place] | [address] | | | | | Procedures | [address] | Phone: | | | | | Consult, | Phone: | [phone] | | | | | Sage Wilkins | [phone] | Fax: | | | | | | Fax: | [phone] | | | | | | [phone] | | +--------+--------+ + + + + Encounter Details +--------+ + + + + | Date | Type | Department | Care Team | Description | +--------+ + + + + | 01/04/ | Hospital | Radiation Oncology | | | | 2018 | Encounter | at [facility] [address] | | | | | | [place] | | | | | | [id number] | | | | | | HOSPITAL [place], | | | | | | [place] [address] | | | | | | [phone] | | | +--------+ + + + [...]
--- OUTSIDE RECORDS SUMMARY | ~2019-11-23 | XMS | Encounter Summary ---
Demographics + + + | Address | [address] | | | [place] [address] | + + + | Home Phone | | + + + | Preferred Language | Unknown | + + + | Marital Status | | + + + | Faith Affiliation | CAT | + + + [...] Team Providers + +------+ + | Care Board Operator Name | Role | Phone | + +------+ + | Christos Olivarez MD | PCP | | + +------+ + Encounter Details +--------+ + + + + | Date | Type | Department | Care Team | Description | +--------+ + + + + | 07/14/ | Visual Merchandising Coordinator | Hematology/Medical | Krunal Godoy, | | | 2019 | | [facility] [place] | ,PhD [address] | | | | | for Health & Healing | [place], [place] | | | | | [address] | [address] | | | | | Mailcode: [place] | [phone] | | | | | for Health and | | | | | | [facility] [address] | | | | | | [place], [place] | | | | | | [address] | | | | | | [phone] | | | +--------+ + + + [...]
--- OUTSIDE RECORDS SUMMARY | ~2019-11-23 | XMS | Encounter Summary ---
Demographics + + + | Address | [address] | | | [place] [address] | + + + | Home Phone | | + + + | Preferred Language | Unknown | + + + | Marital Status | | + + + | Temple Affiliation | CAT | + + + | Race | White | + + + | Ethnic Group | Not or | + + + Author + + + | Author | [facility] | + + + | Organization | [facility] | + + + | [...] Team Providers + +------+ + | Care Clutch Rebuilder Name | Role | Phone | + +------+ + | Luis Leiva DO | PCP | | + +------+ + Encounter Details +--------+ + + + + | Date | Type | Department | Care Team | Description | +--------+ + + + + | 01/30/ | Hospital | Radiation Oncology | | | | 2018 | Encounter | at [facility] [address] | | | | | | [place] | | | | | | [id number] [facility] | | | | | | [facility] | | | | | | [place] [address] | | | | | | [phone] | | | +--------+ + + + [...]
--- OUTSIDE RECORDS SUMMARY | ~2019-11-23 | XMS | Encounter Summary ---
Demographics + + + | Address | [address] | | | [place] [address] | + + + | Home Phone | | + + + | Preferred Language | Unknown | + + + | Marital Status | | + + + | Catholic Affiliation | CAT | + + + | Race | White | + + + | Ethnic Group | Not or | + + + Author + + + | Author | [facility] | + + + | Organization | [facility] | + + + | Address | Unknown | + + + | Phone | Unavailable | + + + Support + + +---------+ + | Name | Relationship | Address | Phone | + + +---------+ + | Mauricio Iverson | ECON | Unknown | | + + +---------+ + | Flower Iverson | ECON | Unknown | | + + +---------+ + Care Team Providers + +------+ + | Care Shuttle Repairer Name | Role | Phone | + +------+ + | Luis Leiva DO | PCP | | + +------+ + Reason for Visit AUTH/CERT +--------+--------+ + + + + | Status | Reason | Specialty | Diagnoses / | Referred By | Referred To | | | | | Procedures | Contact | Contact | +--------+--------+ + + + + | | | | | | | +--------+--------+ + + + + Encounter Details +--------+---------+ + + + | Date | Type | Department | Care Team | Description | +--------+---------+ + + + | 05/14/ | Surgery | [id number] | Juvenal Vicente MD | MINIMALLY INVASIVE | | 2018 | | [address] | [address] | LAPAROSCOPIC 3-FIELD | | | | [address] [facility] [address] | [address] [place], | ESOPHAGECTOMY | | | | Hospital Admitting | [place] [address] | MATILDA: RIGHT VATS FOR | | | | Desk Located on the | [phone] | MOBILIZATION OF | | | | 9th floor | | ESOPHAGUS, DIVISION | | | | [place], [place] | | OF [employer] [place], | | | | [phone] | | LIGATION OF LEFT | | | | | | THORACIC DUCT, LYMPH | | | | | | NODE DISSECTION, | | | | | | BILATERAL CHEST TUBE | | | | | | PLACEMENT, EGD | | | | | | JULES/BRIANA: | | | | | | EXPLORATORY | | | | | | LAPAROSCOPY, LEFT | | | | | | NECK DISSECTION, | | | | | | ESOPHAGECTOMY, | | | | | | CREATION OF GASTRIC | | | | | | CONDUIT, GASTRIC | | | | | | PULL-UP WITH PRIMARY | | | | | | ANASTOMOSIS IN LEFT | | | | | | NECK, WILVER | | | | | | MANEUVER, DISSECTION | | | | | | OF LEFT GASTRIC | | | | | | PEDICLE, HIATAL | | | | | | DISSECTION AND | | | | | | CLOSURE, | | | | | | PYLOROMYOTOMY, | | | | | | J-TUBE EXCHANGE | +--------+---------+ + + + Social History [...] + + + | Blood Pressure | 114/74 | 05/22/2018 8:25 AM | | | | | PDT | | + + + + + | Pulse | 81 | 05/22/2018 8:25 AM | | | | | PDT | | + + + + + | Temperature | 36.6 C (97.9 F) | 05/22/2018 8:25 AM | | | | | PDT | | + + + + + | Respiratory Rate | 16 | 05/22/2018 8:25 AM | | | | | PDT | | + + + + + | Oxygen Saturation | 98% | 05/22/2018 8:25 AM | | | | | PDT | | + + + + + | Inhaled Oxygen | - | - | | | Concentration | | | | + + + + + | Weight | 72.6 kg (160 lb) | 05/22/2018 7:00 AM | | | | | PDT | | + + + + + | Height | 172.7 cm (5' 7.99") | 05/15/2018 7:48 AM | | | | | PDT | | + + + + + | Body Mass Index | 24.33 | 05/15/2018 7:48 AM | | | | | PDT [...] + + documented as of this encounter Discharge Summaries Brian Villafuerte MD - 05/22/2018 8:26 AM PDT INPATIENT DISCHARGE SUMMARY Author: Brian Villafuerte MD Attending: Juvenal Vicente MD Admission Date: 05/14/2018 Discharge Date: 05/22/2018 Diagnoses: Diagnoses Patients Hospital Problem List: Active Hospital Problems 1) *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 Laparoscopic 3 field esophagectomy (abdominal portion) 2. Laparoscopic enterolysis x 60 minutes 3. Laparoscopic pyloromyotomy Thoracic portion: 1 Pneumolysis 2.thoracoscopic mobilization of the esophagus. 3. Mediastinal lymph node dissection 4. TD ligation 5. Left tube thoracostomy Brief Hospital Course: Brief Hospital Course Jacob Iverson is a 67 y.o. year old male with medical history esophageal adenocarcinoma and j- tube placement. On 05/14/2018 he was admitted for a MIS 3-field esophagectomy. Post-operative ly, he was transferred to the ICU for close monitoring. He recovered well and his care follo wed the Esophagectomy Care Pathway. Post operative pain was adequately controlled via epidur al infusion and he was transitioned to oral pain medications by POD#7. Jejunostomy tube feeds were initiated and titrated up to 30 ml/hr and his chest tubes were both removed. A esophagram was completed on POD#7 without any evidence of leak, thus he was advanced to a clear liquid diet (strict maximum of 30ml/hr oral intake) and his diet was slo wly advanced to a full liquid diet with maximum intake of 60ml/hr. Our dietitian was consult ed and educated him on tube feeding and home diet instructions. Education was provided on ho me tube feeding infusion, subcutaneous Lovenox instructions and J-tube care. Our case manage ment team has seen him and arrangement for home tube feedings have been established. On day of discharge, his pain is well controlled with oral pain medications, tolerating tub e feeding and oral diet, ambulating and voiding without difficulty. Discharge instructions h ave been reviewed and all questions have been answered. We will have him follow up with Dr. Juvenal Vicente MD and we have instructed him to also follow up with his Primary Care Provider in 2 weeks for continued medical management. MEDICATIONS: Medication List START taking these medications acetaminophen 160 mg/5 mL (5 mL) Susp Commonly known as: TYLENOL 10.2-20.3 mL by feeding tube route every six hours as needed (mild pain). docusate sodium 60 mg/15 mL Syrp Commonly known as: COLACE 12.5 mL by feeding tube route twice daily as needed (constipation). Hold for loose stool enoxaparin 40 mg/0.4 mL Syrg Commonly known as: LOVENOX Inject 0.4 mL under the skin (SUBC) once daily in the evening for 21 days. Indications: Angelia p Vein Thrombosis Prevention metoclopramide HCl 5 mg Tab Commonly known as: REGLAN 1 tablet by feeding tube route every six hours. For esophageal motility. Take for a total o f 90 days. gwizywdtajmd-grgk-bagrnleu Liqd Commonly known as: CEROVITE 15 mL by feeding tube route once daily. Take for 1 month, then can take OTC multivitamins omeprazole 2 mg/mL oral suspension (compound) Take 20 mL by feeding tube route once daily. Take liquid for 1 month, then can resume capsu les. Will take this medication for life. ondansetron 4 mg Tab Commonly known as: ZOFRAN 1 tablet by feeding tube route every eight hours as needed for nausea/vomiting. Dissolve in water (takes ~5 min) then administer per tube. polyethylene glycol 17 gram/dose Powd Commonly known as: MIRALAX Mix 17g (1 capful) in liquid and take by feeding tube route once daily as needed for consti pation. * propranolol 20 mg/5 mL (4 mg/mL) Soln Commonly known as: INDERAL Take 7.5 mL by mouth two times daily. Replaces: INDERAL LA 60 mg Cs24 * propranolol 60 mg Tab Commonly known as: INDERAL 0.5 tablets by feeding tube route two times daily. simethicone chew 80 mg Chew Commonly known as: MYLICON Chew and swallow 0.5 tablets every six hours as needed for bloating (gas pain). * This list has 2 medication(s) that are the same as other medications prescribed for you. Read the directions carefully, and ask your doctor or other care provider to review them wit h you. CHANGE how you take these medications oxyCODONE (immediate release) 5 mg Tab Commonly known as: ROXICODONE Take 1 tablet by mouth every four hours as needed (for pain.). What changed: how much to take when to take this reasons to take this CONTINUE taking these medications CYCLOBENZAPRINE ORAL Take by mouth three times daily as needed for muscle spasms (neck). Do not use longer than 2-3 weeks. Indications: neck spasms LORazepam 1 mg Tab Commonly known as: ATIVAN Take 1 mg by mouth as needed for anxiety (and sleep). LOVASTATIN ORAL Take by mouth. STOP taking these medications HYDROcodone-acetaminophen 5-325 mg Tab Commonly known as: NORCO INDERAL LA 60 mg Cs24 Generic drug: propranolol ER Replaced by: propranolol 20 mg/5 mL (4 mg/mL) Soln omeprazole 10 mg Cpdr Commonly known as: PRILOSEC DIET: Liquid Diet - Full liquid diet with strict max of 90 mL/hr. - Please sit upright and tuck chin when taking anything by mouth. - Please follow up at your Post-Op visit to discuss advancing your diet. - Do not eat right before bed. Tube Feeding UPDATE ACTIVITY: Activity Restrictions - Do not do any strenuous exercise until your provider has given you permission to do so. N o heavy lifting, pulling or pushing greater than 10 pounds for 4-6 weeks or until your provi wendy has given you permission. - Do not drive while on narcotic medications. - Follow abdominal precautions. No abdominal crunches. - Return to work is dependent on your surgical procedure and your job. Please contact your provider to discuss. - Walking will be your main form of physical activity. It is important to move frequently t hroughout the day, increasing your activity level and walking often. It is important to star t slow, but increase your activity each day. NOTABLE DIAGNOSTIC STUDIES: Esophagram - No leak CT Chest/Abdomen/Pelvis - 1. Since 10/21/17, interval decrease in size of the GE junction mass, with decrease in size of the regional lymphadenopathy. No evidence of distant metastases. 2. Subtle punctate tree in bud lung nodules, likely infectious or inflammatory. 3. More prominent intra-and extrahepatic biliary digitation with no evidence of obstructing lesion, favored to represent postcholecystectomy change. PATH: ? Residual invasive adenocarcinoma, moderately to poorly differentiated, invasive into adve ntitia, spanning at least 5.0 cm. ? Margins negative for dysplasia or malignancy ? Metastatic carcinoma in four of fourteen lymph nodes (4/14), see comment ? AJCC pathologic stage (8th edition): ypT3 N2 EXAM: Ht 1.727 m (5' 7.99"), Wt 72.6 kg (160 lb), BP 120/64, Pulse 88, Temperature 37.1 C (98.8 F), RR 16, SpO2 96%, BMI 24.33 kg/(m^2). General: pleasant and appropriate HEENT: Incision well approximated, no erythema, covered in glue Respiratory: breathing comfortably on RA. Palpable subQ air along R chest CV: regular rate Abdomen: soft, nondistended; Incisions well approximated covered in surgical glue Jtube wi th feeds running. Extremities: Warm and well perfused, no peripheral edema Condition On Discharge: Good DISPO: Home FOLLOW UP: Call the clinic to schedule a follow-up appointment 2 weeks after discharge Set up an appointment with your PCP in 1-2 weeks Brian Villafuerte MD Resident Physician, PGY1 documented in this encou nter Medications at Time of Discharge + + [...] + + + +---------+ + + | enoxaparin 40 | Inject 0.4 mL under | 8.4 mL | 0 | 05/20/20 | | | mg/0.4 mL | the skin (SUBC) once | | | 18 | 8 | | subcutaneous | daily in the | | | | | | syringeIndications: | evening for 21 days. | | | | | | Deep Vein Thrombosis | Indications: Deep | | | | | | Prevention | Vein Thrombosis | | | | | | | Prevention | | | | | + + + +---------+ + + documented as of this encounter Progress Notes hCerie Zamora MD - 05/21/2018 7:18 AM PDTFormatting of this note might be different f rom the original. Thoracic Surgery Brief Inpatient Progress Note Patient name: JACOB Melissa KISHOR Attending: Dalton Wisdom MD Procedure day: 7 (05/14) Procedure: 3-field MIS esophagectomy 24 hour events: - no acute events overnight - Passed bedside swallow yesterday, awaiting esophagram this AM 24 hour vitals: Last 24 hour min/max Temp: 36.6 C (97.9 F) Temp Min: 36.6 C (97.9 F) Max: 37.6 C (99.7 F) Pulse: 62 Pulse Min: 62 Max: 85 Resp: 16 (irregular breathing rhythm with apneic phase) Resp Min: 16 Max: 19 BP: 99/81 BP Min: 89/64 Max: 147/87 SpO2: 96 % on RA SpO2 Min: 87 % Max: 98 % Body mass index is 26.12 kg/m. Chest tube output: 70 / 70cc in past 8 hr, to waterseal, no airleak, serosanguinous Lab Results Component Value Date NA 141 05/20/2018 K 4.1 05/20/2018 CL 107 05/20/2018 BICARB 26 05/20/2018 BUN 14 05/20/2018 CR 0.62 05/20/2018 GLU 117 05/20/2018 CA 8.4 05/20/2018 Lab Results Component Value Date WBC 8.29 05/18/2018 HB 8.9 05/18/2018 HCT 25.7 05/18/2018 PLT 154 05/18/2018 MCV 98.1 05/18/2018 RDW 47.6 05/18/2018 Brief Exam: Gen: Sleeping comfortably, in NAD Pulm: Unlabored breathing on room air, minimal chest wall crepitus Cards: Non-tachycardic GI: S/NT Ext: moving all extremities Assessment: Jacob Iverson is a 67 y.o. M with CAD,HLD, andHTN who was diagnosed with T3N3M 0 esophageal adenocarcinoma s/p neoadjuvant therapy and 3-field MIS esophagectomy on 05/14. Recommendations: - Continue right chest tube to water seal - Will likely remove today - Esophagram today - Continue on esophagectomy pathway - Remainder of care per Red surgery - Thoracic surgery will continue to follow along until chest tube is removed - Pt will be discussed with Dr. Rufino Zamora MD General Surgery, R4 Pager # [phone] Brian Barajas MD - 05/21/2018 7:03 AM PDT RED Surgical Team: Foregut Daily Progress Note Admission Date: 05/14/2018 (Length of Stay: 7 day) Attending Provider: Doctor Pal ID: Jacob Iverson is a 67M with mild CAD, HTN, tremors, and T3N3 esophageal adenocarcinoma now sp esophagectomy Procedures: 05/14/2018 MINIMALLY INVASIVE 3 FIELD ESOPHAGECTOMY (INCLUDES J-TUBE) Operating Surgeon: Juvenal Vicente MD Interval Events: - Some apnea overnight while sleeping w/ spontaneous recovery, remote O2 monitoring added - Will give 20 of lasix today - Tolerated bedside sip test, plan for esophagram today I/Os: Intake/Output Summary (Last 24 hours) at 05/21/18 0703 Last data filed at 05/21/18 0530 Gross per 24 hour Intake 1330 ml Output 695 ml Net 635 ml Vitals: Last 24 hour min/max Temp: 36.6 C (97.9 F) Temp Min: 36.6 C (97.9 F) Max: 37.6 C (99.7 F) Pulse: 62 Pulse Min: 62 Max: 85 Resp: 16 (irregular breathing rhythm with apneic phase) Resp Min: 16 Max: 19 BP: 99/81 BP Min: 89/64 Max: 147/87 SpO2: 96 % SpO2 Min: 87 % Max: 98 % Body mass index is 26.12 kg/m. Physical Exam: General: pleasant and appropriate HEENT: Incision well approximated no erythema covered in glue Respiratory: breathing comfortably on RA. R CT SS. Palpable subQ air along R chest CV: regular rate Abdomen: soft, nondistended; Incisions well approximated covered in surgical glue Jtube wi th feeds running. Extremities: Warm and well perfused, no peripheral edema Labs: Lab Results Component Value Date WBC 8.29 05/18/2018 HB 8.9 05/18/2018 HCT 25.7 05/18/2018 PLT 154 05/18/2018 MCV 98.1 05/18/2018 RDW 47.6 05/18/2018 Lab Results Component Value Date NA 141 05/20/2018 K 4.1 05/20/2018 CL 107 05/20/2018 BICARB 26 05/20/2018 BUN 14 05/20/2018 CR 0.62 05/20/2018 GLU 117 05/20/2018 CA 8.4 05/20/2018 Recent Labs 04/09/18 1601 04/30/18 1415 05/18/18 0229 05/19/18 0210 05/20/18 0528 AST 26 28 -- -- -- -- ALT 19 29 -- -- -- -- TBILI 0.5 0.6 -- -- -- -- AP 88 102 -- -- -- -- ALB 3.2* 3.4* < > 2.3* 2.4* 2.5* TP 6.6 7.1 -- -- -- -- < > = values in this interval not displayed. No results found for: INRPT Imaging: CXR 05/21: Per my read, increased R sided opacities Assessment and Plan: Jacob Iverson is a 67 yo with CAD (moderate based on 2008 cath managed medically), HTN , tremors and T3N3 esophageal cancer sp neoadjuvant chemoRT and now sp ALEX 3 field esophagec jason 05/14. Doing well and remains on pathway. Today's goals: - Esophagram, if no leak will start CLD #sp 3field ALEX -strict NPO -TF to 30 -up and ambulate, IS -continue amiodarone prophylaxis per pathway -ppi, scheduled reglan - daily CXR until CTs out - Esophagram today, will advance diet if no leak Pulmonary opacities - Will give lasix and KCL today #HTN #CAD -home propranolol via Jtube -ASA, statin Disposition: home Sunday if remains on pathway Brian Villafuerte MD Otolaryngology-Head & Neck Surgery, PGY1 Pager: [phone] rexel, Cherie Ang MD - 05/20/2018 12:50 PM PDT Thoracic Surgery Brief Inpatient Progress Note Patient name: JACOB IVERSON Attending: Dalton Wisdom MD Procedure day: (05/14) Procedure: 3-field MIS esophagectomy 24 hour events: - no acute events overnight - Feeling well, tolerating TFs 24 hour vitals: Last 24 hour min/max Temp: 36.6 C (97.9 F) Temp Min: 36.6 C (97.9 F) Max: 37.6 C (99.7 F) Pulse: 84 Pulse Min: 73 Max: 85 Resp: 16 Resp Min: 16 Max: 18 BP: 143/81 BP Min: 111/79 Max: 182/96 SpO2: 90 % on RA SpO2 Min: 90 % Max: 96 % Body mass index is 26.12 kg/m. Chest tube output: 165 / 40cc, serosanguinous, to waterseal, no airleak Lab Results Component Value Date NA 141 05/20/2018 K 4.1 05/20/2018 CL 107 05/20/2018 BICARB 26 05/20/2018 BUN 14 05/20/2018 CR 0.62 05/20/2018 GLU 117 05/20/2018 CA 8.4 05/20/2018 Lab Results Component Value Date WBC 8.29 05/18/2018 HB 8.9 05/18/2018 HCT 25.7 05/18/2018 PLT 154 05/18/2018 MCV 98.1 05/18/2018 RDW 47.6 05/18/2018 Brief Exam: NAD, AOX3 Unlabored on room air RRR S/NT/ND MAEW Wounds healing without complication Assessment: Jacob Iverson is a 67 y.o. M with CAD,HLD, andHTN who was diagnosed with T3N3M 0 esophageal adenocarcinoma s/p neoadjuvant therapy and 3-field MIS esophagectomy on 05/14. Recommendations: - Continue right chest tube to water seal - Will follow-up CXR tomorrow and likely remove - Continue on esophagectomy pathway - Remainder of care per Red surgery - Thoracic surgery will continue to follow along - Discussed with Dr. Dalton Zamora MD General Surgery, R4 Pager # [phone] Bebe Leija MD - 8:58 AM PDT INPATIENT ADULT PAIN SERVICE NEURAXIAL BLOCK PROGRESS NOTE 05/20/2018 Author: Bebe Calvillo MD Pain Service Attending Physician: Paulette Xie MD Epidural day # 6. POD# 6. Status post: Three field esophagectomy for distal esophageal adenocarcinoma Interval events since last APS visit: Patient doing well. Able to walk around unit. Feels antsy. Reports that pushing PCEA button is helpful. Mr. Iverson complains of right chest pain. His pain score at rest is 2/10. With activity, his pain score is 3/10. Specific activitie s that exacerbate Mr. Iverson's pain include getting to a chair and walking. Mr. Iverson is parti ally satisfied with current level of pain. History of chronic or preoperative pain: yes Prior to hospitalization: norco 5.325mg PRN ROS/Side Effects: General: antsy. Nausea/Vomiting: none Pruritus: none Numbness/Weakness: none Low BP: none Dizziness: none Sedation: none Activity level: Ambulatory Diet: Full liquids/Reg Diet/Tube Feeds Medications: Current Facility-Administered Medications Medication Dose Route Frequency Last Rate amiodarone (CORDARONE) tablet 400 mg 400 mg feeding tube TID aspirin chewable tablet 81 mg 81 mg feeding tube DAILY enoxaparin (LOVENOX) injection 40 mg 40 mg subcutaneous QPM melatonin tablet 3 mg 3 mg feeding tube QPM metoclopramide HCl (REGLAN) liquid 10 mg 10 mg feeding tube TID AC multivitamin-iron (ONE DAILY with IRON) tablet 1 tablet 1 tablet feeding tube DAILY omeprazole (PRILOSEC) oral suspension (compound) 40 mg 40 mg feeding tube BEFORE BREAK FAST pravastatin (PRAVACHOL) tablet 20 mg 20 mg feeding tube QPM propranolol (INDERAL) liquid 30 mg 30 mg oral BID Current Facility-Administered Medications Medication Dose Route Frequency Last Rate bisacodyl (DULCOLAX) suppository 10 mg 10 mg rectal DAILY PRN LORazepam (ATIVAN) tablet 0.5 mg 0.5 mg feeding tube HS PRN nalbuphine (NUBAIN) injection 2.5 mg 2.5 mg intravenous Q15MIN PRN naloxone (NARCAN) injection intravenous PRN ondansetron (ZOFRAN) injection 4 mg 4 mg intravenous Q12H PRN saliva substitute (MOUTH KOTE) spray oral PRN Current Facility-Administered Medications Medication Dose Route Frequency Last Rate bupivacaine 0.1 %, HYDROmorphone 20 mcg/mL in NaCl 0.9 % epidural infusion epidural C ONTINUOUS 8 mL/hr at 05/20/18 0521 Type: Epidural bupivacaine 0.1%+HM 20mcg/mL Rate: 8 mL/hour Anticoagulants: Enoxaparin 40mg subcutaneous daily, last dose given yesterday at 2050 hrs. Lab Results Component Value Date PLT 154 05/18/2018 Opioids: Nalbuphine 0 mg/day Other analgesics: None Other psychoactive medications: melatonin 3mg/day, lorazepam 0.5mg/day Physical Exam: Last Vitals:BP 144/93 | Pulse 85 | Temp 36.7 C (98.1 F) | RR 16 | Ht 1.727 m (5' 7.99") | Wt 77.9 kg (171 lb 11.8 oz) | SpO2 96% | BMI 26.12 kg/(m^2) 24 hour Vitals min/max : Systolic (24hrs), Av , Min:111 , Max:182 Diastolic (24hrs), Av, Min:68, Max:96 Pulse Min: 71 Max: 85 Temp Min: 36.7 C (98.1 F) Max: 37.6 C (99.7 F) Resp Min: 16 Max: 18 SpO2 Min: 92 % Max: 96 % General Appearance and Neurological Examination: Mental Status: Alert Orientation: Oriented Sensory Level: deferred Motor: bilateral lower extremity(ies) -- No block: full flexion and extension of hip, knee and foot Neuraxial Catheter: Location: T6-T9;depth at skin 1 cm Clinically significant migration since placement? Yes Dressing: Intact Exit Site: Clean and Non-tender, subcutaneous swelling likely secondary to subcutaneous epi dural infusion Insertion site exposed? No Chest tube in place. NAD Able to transfer from bed to standing comfortably Unlabored respirations No REX Assessment: Mr. Iverson rates his pain relief as good. My personal assessment is concordant with this evaluation Patient reports pain under good control. States he feels antsy and is on lorazepam at home, which helps. Reports that pressing PCEA button helps take the edge off. However, on exam, I noted that the epidural catheter was only about 1cm at the skin, and so it had migrated at some point. There is some subcutaneous collection about the size of a half-dollar as well. I suspect the catheter migrated out at least a few hours ago. Given that he is not in signifi cant pain his pain is likely to be controlled on low dose opioid. Wilkerson status: Epidural: at thoracic level; If Wilkerson is in place, it may be removed if deem ed appropriate by primary care team Diagnosis: 1. Acute postoperative chest pain 2. Esophageal adenocarcinoma 3. LBBB 4. GERD 5. Subfebrile My treatment plan is: Discontinue neuraxial infusion Catheter removed, tip intact; insertion site c/d/I no evidence of erythema, purulent draina ge, or tenderness PRN pain medications per primary team, pt prefers [facility] APS will sign off, please re-page with questions. I discussed our findings and recommendations with primary care team provider inpatient red resident. Bebe Calvillo MD Regional Anesthesia Fellow Adult Pain Service Associated attestation - Paulette Xie MD - 05/20/2018 9:01 PM PDTI participated in t he evaluation and treatment of Jacob Iverson. I agree with Dr. Calvillo's findings and plan as docum ented in his note. My additional comments are: None Brian Villafuerte MD - 05/20/2018 6:23 AM PDT RED Surgical Team: Foregut Daily Progress Note Admission Date: 05/14/2018 (Length of Stay: 6 day) Attending Provider: Doctor Pal ID: Jacob Iverson is a 67M with mild CAD, HTN, tremors, and T3N3 esophageal adenocarcinoma now sp esophagectomy Procedures: 05/14/2018 MINIMALLY INVASIVE 3 FIELD ESOPHAGECTOMY (INCLUDES J-TUBE) Operating Surgeon: Juvenal Vicente MD Interval Events: Had BM Feels well this AM TF at goal I/Os: Intake/Output Summary (Last 24 hours) at 05/20/18 0624 Last data filed at 05/20/18 0540 Gross per 24 hour Intake 1180 ml Output 1730 ml Net -550 ml Vitals: Last 24 hour min/max Temp: 37.4 C (99.3 F) Temp Min: 36.9 C (98.4 F) Max: 37.6 C (99.7 F) Pulse: 77 Pulse Min: 71 Max: 82 Resp: 18 Resp Min: 16 Max: 18 BP: (!) 149/91 BP Min: 111/79 Max: 182/96 SpO2: 95 % SpO2 Min: 90 % Max: 96 % Body mass index is 26.12 kg/m. Physical Exam: General: pleasant and appropriate HEENT: Incision well approximated no erythema covered in glue Respiratory: breathing comfortably on RA. R CT SS. Palpable subQ air along R chest CV: regular rate Abdomen: soft, nondistended; Incisions well approximated covered in surgical glue Jtube wi th feeds running. Extremities: Warm and well perfused, no peripheral edema Labs: Lab Results Component Value Date WBC 8.29 05/18/2018 HB 8.9 05/18/2018 HCT 25.7 05/18/2018 PLT 154 05/18/2018 MCV 98.1 05/18/2018 RDW 47.6 05/18/2018 Lab Results Component Value Date NA 142 05/19/2018 K 3.2 05/19/2018 CL 107 05/19/2018 BICARB 27 05/19/2018 BUN 16 05/19/2018 CR 0.50 05/19/2018 GLU 133 05/20/2018 CA 8.0 05/19/2018 Recent Labs 04/09/18 1601 04/30/18 1415 05/17/18 0024 05/18/18 0229 05/19/18 0210 AST 26 28 -- -- -- -- ALT 19 29 -- -- -- -- TBILI 0.5 0.6 -- -- -- -- AP 88 102 -- -- -- -- ALB 3.2* 3.4* < > 2.2* 2.3* 2.4* TP 6.6 7.1 -- -- -- -- < > = values in this interval not displayed. No results found for: INRPT Imaging: CXR 05/19: improving opacities Assessment and Plan: Jacob Iverson is a 67 yo with CAD (moderate based on 2008 cath managed medically), HTN , tremors and T3N3 esophageal cancer sp neoadjuvant chemoRT and now sp ALEX 3 field esophagec jason 05/14. Doing well and remains on pathway. Today's goals: - Will trial oscar capone/ at bedside #sp 3field ALEX -strict NPO -TF to 30 -up and ambulate, IS -continue amiodarone prophylaxis per pathway -ppi, scheduled reglan -daily CXR until CTs out - Esophagram tomorrow, ordered #HTN #CAD -home propranolol via Jtube -ASA, statin Disposition: home Sunday if remains on pathway Brian Villafuerte MD Otolaryngology-Head & Neck Surgery, PGY1 Pager: [phone] Chula Bishop MD - 05/19 8:38 AM PDT RED Surgical Team: Foregut Daily Progress Note Admission Date: 05/14/2018 (Length of Stay: 5 day) Attending Provider: Doctor Pal ID: Jacob Iverson is a 67M with mild CAD, HTN, tremors, and T3N3 esophageal adenocarcinoma now sp esophagectomy Procedures: 05/14/2018 MINIMALLY INVASIVE 3 FIELD ESOPHAGECTOMY (INCLUDES J-TUBE) Operating Surgeon: Juvenal Vicente MD Interval Events: CXR improved Stable to improve sub cutaneous air, chest tube in place w/ small leak Feeling well overall Pain under good control with epidural Passing gas I/Os: Intake/Output Summary (Last 24 hours) at 05/19/18 0838 Last data filed at 05/19/18 0800 Gross per 24 hour Intake 1455 ml Output 2086 ml Net -631 ml Vitals: Last 24 hour min/max Temp: 36.9 C (98.4 F) Temp Min: 36.8 C (98.2 F) Max: 37.8 C (100 F) Pulse: 74 Pulse Min: 69 Max: 81 Resp: 16 Resp Min: 16 Max: 16 BP: (!) 173/97 BP Min: 127/84 Max: 173/97 SpO2: 90 % SpO2 Min: 90 % Max: 96 % Body mass index is 26.12 kg/m. Physical Exam: General: pleasant and appropriate HEENT: Incision well approximated no erythema covered in glue Respiratory: breathing comfortably on RA. L CT out, R CT SS w/ small leak with coughing. Palpable subQ air along R chest CV: regular rate Abdomen: soft, nondistended; Incisions well approximated covered in surgical glue Jtube wi th feeds running. Extremities: Warm and well perfused, no peripheral edema Labs: Lab Results Component Value Date WBC 8.29 05/18/2018 HB 8.9 05/18/2018 HCT 25.7 05/18/2018 PLT 154 05/18/2018 MCV 98.1 05/18/2018 RDW 47.6 05/18/2018 Lab Results Component Value Date NA 142 05/19/2018 K 3.2 05/19/2018 CL 107 05/19/2018 BICARB 27 05/19/2018 BUN 16 05/19/2018 CR 0.50 05/19/2018 GLU 129 05/19/2018 CA 8.0 05/19/2018 Recent Labs 04/09/18 1601 04/30/18 1415 05/17/18 0024 05/18/18 0229 05/19/18 0210 AST 26 28 -- -- -- -- ALT 19 29 -- -- -- -- TBILI 0.5 0.6 -- -- -- -- AP 88 102 -- -- -- -- ALB 3.2* 3.4* < > 2.2* 2.3* 2.4* TP 6.6 7.1 -- -- -- -- < > = values in this interval not displayed. No results found for: INRPT Imaging: CXR 05/19: improving opacities Assessment and Plan: Jacob Iverson is a 67 yo with CAD (moderate based on 2008 cath managed medically), HTN , tremors and T3N3 esophageal cancer sp neoadjuvant chemoRT and now sp ALEX 3 field esophagec jason 05/14. Doing well and remains on pathway. Today's goals: -Continue TF -hold on diuresis -up and walking -R CT per thoracic #sp 3field ALEX -strict NPO -TF to 30 -hold on diuresis today, monitor -up and ambulate, IS -continue amiodarone prophylaxis per pathway -ppi, scheduled reglan -daily CXR until CTs out #HTN #CAD -home propranolol via Jtube -ASA, statin Disposition: home mid next week Brian Villafuerte MD Otolaryngology-Head & Neck Surgery, PGY1 Pager: [phone] STAFF: I personally interviewed the patient, performed the pertinent parts of the physical examina tion and personally formulated the plan with the resident. I agree with the residents docum entation and have documented any additions or exceptions. Tamera Bush Md - 05/19/2018 7:43 AM PDT INPATIENT ADULT PAIN SERVICE NEURAXIAL BLOCK PROGRESS NOTE 05/19/2018 Author: TRINO ROACH MD Pain Service Attending Physician: Trino Martinez MD Epidural day # 5. POD# 5. Status post: Three field esophagectomy for distal esophageal adenocarcinoma Interval events since last APS visit: CT still in place Mr. Iverson complains of left sided chest pain. His pain score at rest is 0/10. With activity, his pain score is 4/10. Specific activitie s that exacerbate Mr. Iverson's pain include moving in bed. Mr. Iverson is satisfied with current level of pain. History of chronic or preoperative pain: no Prior to hospitalization: No significant chronic use of opioids at home ROS/Side Effects: General: negative. Nausea/Vomiting: none Pruritus: none Numbness/Weakness: none Low BP: none Dizziness: none Sedation: none Activity level: Ambulatory Diet: NPO/sips/ice chips Medications: Current Facility-Administered Medications Medication Dose Route Frequency Last Rate amiodarone (CORDARONE) tablet 400 mg 400 mg feeding tube TID aspirin chewable tablet 81 mg 81 mg feeding tube DAILY enoxaparin (LOVENOX) injection 40 mg 40 mg subcutaneous QPM melatonin tablet 3 mg 3 mg feeding tube QPM metoclopramide HCl (REGLAN) liquid 10 mg 10 mg feeding tube TID AC multivitamin-iron (ONE DAILY with IRON) tablet 1 tablet 1 tablet feeding tube DAILY omeprazole (PRILOSEC) oral suspension (compound) 40 mg 40 mg feeding tube BEFORE BREAK FAST potassium chloride (KLOR-CON) packet 40 mEq 40 mEq feeding tube BID potassium, sodium phosphates (NEUTRA-PHOS, PHOS-NAK) 280-160-250 mg packet 1 packet 1 packet feeding tube ONCE pravastatin (PRAVACHOL) tablet 20 mg 20 mg feeding tube QPM propranolol (INDERAL) liquid 30 mg 30 mg oral BID Current Facility-Administered Medications Medication Dose Route Frequency Last Rate bisacodyl (DULCOLAX) suppository 10 mg 10 mg rectal DAILY PRN LORazepam (ATIVAN) tablet 0.5 mg 0.5 mg feeding tube HS PRN nalbuphine (NUBAIN) injection 2.5 mg 2.5 mg intravenous Q15MIN PRN naloxone (NARCAN) injection intravenous PRN ondansetron (ZOFRAN) injection 4 mg 4 mg intravenous Q12H PRN saliva substitute (MOUTH KOTE) spray oral PRN Current Facility-Administered Medications Medication Dose Route Frequency Last Rate bupivacaine 0.1 %, HYDROmorphone 20 mcg/mL in NaCl 0.9 % epidural infusion epidural C ONTINUOUS 8 mL/hr at 05/19/18 0424 Type: Epidural Rate: 8 mL/hour Anticoagulants: Enoxaparin 40mg subcutaneous daily, last dose given yesterday at 21:03 hrs . Lab Results Component Value Date PLT 154 05/18/2018 Opioids: None Other analgesics: None Other psychoactive medications: Lorazepam and melatonin Physical Exam: Last Vitals:BP 140/99 | Pulse 72 | Temp 37.3 C (99.1 F) | RR 16 | Ht 1.727 m (5' 7.99") | Wt 77.9 kg (171 lb 11.8 oz) | SpO2 94% | BMI 26.12 kg/(m^2) 24 hour Vitals min/max : Systolic (24hrs), Av , Min:127 , Max:169 Diastolic (24hrs), Av, Min:77, Max:99 Pulse Min: 69 Max: 81 Temp Min: 36.8 C (98.2 F) Max: 37.8 C (100 F) Resp Min: 16 Max: 16 SpO2 Min: 93 % Max: 96 % General Appearance and Neurological Examination: Mental Status: Alert Orientation: Oriented Sensory Level: intact Motor: bilateral lower extremity(ies) -- No block: full flexion and extension of hip, knee and foot Neuraxial Catheter: Location: T6-T9;depth at skin covered by dressing Clinically significant migration since pl acement? No Dressing: Needed support Exit Site: Dried blood and Non-tender Insertion site exposed? No Chest tube in place. Assessment: Mr. Iverson rates his pain relief as good. My personal assessment is concordant with this evaluation Waiting for chest tube to be removed before transition from epidural Wilkerson status: Epidural: at thoracic level; If Wilkerson is in place, it may be removed if deem ed appropriate by primary care team Diagnosis: 1. Acute postoperative chest pain 2. Esophageal adenocarcinoma 3. LBBB 4. GERD 5. Subfebrile My treatment plan is: Continue neuraxial infusion, titrate infusion as needed Start APAP PFT Anticipate epidural removal after CT is removed For today's evaluation, I have included my personal review of Mr. Iverson's history and physic al examination. I also used the following components in my medical decision making: Laborat ory studies reviewed. Review and summary of old medical records (source: [employer]), as summarized in the body of the note. Discussion of case with another healthcare provider Nurse. Please page APS #[phone] with questions and concerns. TRINO ROACH MD Chula Bishop MD - 05/18/2018 9:12 AM PDT RED Surgical Team: Foregut Daily Progress Note Admission Date: 05/14/2018 (Length of Stay: 4 day) Attending Provider: Doctor Pal ID: Jacob Iverson is a 67M with mild CAD, HTN, tremors, and T3N3 esophageal adenocarcinoma now sp esophagectomy Procedures: 05/14/2018 MINIMALLY INVASIVE 3 FIELD ESOPHAGECTOMY (INCLUDES J-TUBE) Operating Surgeon: Juvenal Vicente MD Interval Events: Diuresis again yesterday negative 1.2L well tolerated Pain under good control with epidural Increasing subQ air around R chest tube I/Os: Intake/Output Summary (Last 24 hours) at 05/18/18 0912 Last data filed at 05/18/18 0900 Gross per 24 hour Intake 594 ml Output 1960 ml Net -1366 ml Vitals: Last 24 hour min/max Temp: 37.3 C (99.1 F) Temp Min: 36.7 C (98.1 F) Max: 37.9 C (100.2 F) Pulse: 73 Pulse Min: 69 Max: 81 Resp: 16 Resp Min: 14 Max: 21 BP: 141/77 BP Min: 129/74 Max: 166/90 SpO2: 96 % SpO2 Min: 92 % Max: 96 % Body mass index is 26.15 kg/m. Physical Exam: General: pleasant and appropriate HEENT: NGT out, drain out, CVC out. Incision well approximated no erythema covered in glu e Respiratory: breathing comfortably on RA. L CT out, R CT SS no obvious leak. Palpable martínez bQ air along R chest CV: regular rate Abdomen: soft, nondistended; Incisions well approximated covered in surgical glue Jtube wi th feeds running. Extremities: Warm and well perfused, no peripheral edema Labs: Lab Results Component Value Date WBC 8.29 05/18/2018 HB 8.9 05/18/2018 HCT 25.7 05/18/2018 PLT 154 05/18/2018 MCV 98.1 05/18/2018 RDW 47.6 05/18/2018 Lab Results Component Value Date NA 141 05/18/2018 K 3.3 05/18/2018 CL 106 05/18/2018 BICARB 27 05/18/2018 BUN 17 05/18/2018 CR 0.55 05/18/2018 GLU 139 05/18/2018 CA 8.1 05/18/2018 Recent Labs 04/09/18 1601 04/30/18 1415 05/16/18 1756 05/17/18 0024 05/18/18 0229 AST 26 28 -- -- -- -- ALT 19 29 -- -- -- -- TBILI 0.5 0.6 -- -- -- -- AP 88 102 -- -- -- -- ALB 3.2* 3.4* < > 2.1* 2.2* 2.3* TP 6.6 7.1 -- -- -- -- < > = values in this interval not displayed. No results found for: INRPT Imaging: CXR 05/18: stable resolving peritoneal air Assessment and Plan: Jacob Iverson is a 67 yo with CAD (moderate based on 2008 cath managed medically), HTN , tremors and T3N3 esophageal cancer sp neoadjuvant chemoRT and now sp ALEX 3 field esophagec jason 05/14. Doing well and remains on pathway. Today's goals: -TF to 30 -hold on diuresis today -up and walking -suppository PRN -R CT per thoracic #sp 3field ALEX -strict NPO -TF to 30 -hold on diuresis today, monitor -up and ambulate, IS -continue amiodarone prophylaxis per pathway -ppi, scheduled reglan -daily CXR until CTs out #HTN #CAD -home propranolol via Jtube -ASA, statin Disposition: home mid next week Darin Zaragoza MD General Surgery PGY2 [id number] STAFF: I personally interviewed the patient, performed the pertinent parts of the physical examina tion and personally formulated the plan with the resident. I agree with the residents docum entation and have documented any additions or exceptions. Tamera Bush Md - 05/18/2018 8:54 AM PDT INPATIENT ADULT PAIN SERVICE NEURAXIAL BLOCK PROGRESS NOTE 05/18/2018 Author: TRINO ROACH MD Pain Service Attending Physician: Trino Martinez MD Epidural day # 4. POD# 4. Status post: Three field esophagectomy for distal esophageal adenocarcinoma Interval events since last APS visit: Uneventful recovery Mr. Iverson complains of left sided chest pain. His pain score at rest is 2/10. With activity, his pain score is 4/10. Specific activitie s that exacerbate Mr. Iverson's pain include getting to a chair. Mr. Iverson is satisfied with cu rrent level of pain. History of chronic or preoperative pain: no Prior to hospitalization: No significant chronic use of opioids at home ROS/Side Effects: General: negative. Nausea/Vomiting: none Pruritus: none Numbness/Weakness: none Low BP: none Dizziness: none Sedation: none Activity level: Ambulatory Diet: NPO/sips/ice chips Medications: Current Facility-Administered Medications Medication Dose Route Frequency Last Rate amiodarone (CORDARONE) tablet 400 mg 400 mg feeding tube TID aspirin chewable tablet 81 mg 81 mg feeding tube DAILY bisacodyl (DULCOLAX) suppository 10 mg 10 mg rectal DAILY enoxaparin (LOVENOX) injection 40 mg 40 mg subcutaneous QPM melatonin tablet 3 mg 3 mg feeding tube QPM metoclopramide HCl (REGLAN) liquid 10 mg 10 mg feeding tube TID AC multivitamin-iron (ONE DAILY with IRON) tablet 1 tablet 1 tablet feeding tube DAILY omeprazole (PRILOSEC) oral suspension (compound) 40 mg 40 mg feeding tube BEFORE BREAK FAST pravastatin (PRAVACHOL) tablet 20 mg 20 mg feeding tube QPM propranolol (INDERAL) liquid 30 mg 30 mg oral BID Current Facility-Administered Medications Medication Dose Route Frequency Last Rate LORazepam (ATIVAN) tablet 0.5 mg 0.5 mg feeding tube HS PRN nalbuphine (NUBAIN) injection 2.5 mg 2.5 mg intravenous Q15MIN PRN naloxone (NARCAN) injection intravenous PRN ondansetron (ZOFRAN) injection 4 mg 4 mg intravenous Q12H PRN saliva substitute (MOUTH KOTE) spray oral PRN Current Facility-Administered Medications Medication Dose Route Frequency Last Rate bupivacaine 0.1 %, HYDROmorphone 20 mcg/mL in NaCl 0.9 % epidural infusion epidural C ONTINUOUS 8 mL/hr at 05/18/18 0720 Type: Epidural Rate: 8 mL/hour Anticoagulants: Enoxaparin 40mg subcutaneous daily, last dose given yesterday at 21:08 hrs . Lab Results Component Value Date PLT 154 05/18/2018 Opioids: None Other analgesics: None Other psychoactive medications: lorazepam, melatonin Physical Exam: Last Vitals:BP 145/90 | Pulse 78 | Temp 37.3 C (99.1 F) | RR 16 | Ht 1.727 m (5' 7.99") | Wt 78 kg (171 lb 15.3 oz) | SpO2 96% | BMI 26.15 kg/(m^2) 24 hour Vitals min/max : Systolic (24hrs), Av , Min:108 , Max:166 Diastolic (24hrs), Av, Min:62, Max:113 Pulse Min: 69 Max: 81 Temp Min: 36.7 C (98.1 F) Max: 37.9 C (100.2 F) Resp Min: 14 Max: 21 SpO2 Min: 92 % Max: 96 % General Appearance and Neurological Examination: Mental Status: Alert Orientation: Oriented Sensory Level: intact Motor: bilateral lower extremity(ies) -- No block: full flexion and extension of hip, knee and foot Neuraxial Catheter: Location: T6-T9;depth at skin covered by dressing Clinically significant migration since pl acement? No Dressing: Intact Exit Site: Clean and Non-tender Insertion site exposed? No Chest tube in place. Assessment: Mr. Iverson rates his pain relief as excellent. My personal assessment is concordant with this evaluation We will wait for CT to be removed before transition from epidural Wilkerson status: Epidural: at thoracic level; If Wilkerson is in place, it may be removed if deem ed appropriate by primary care team Diagnosis: 1. Acute postoperative chest pain 2. Esophageal adenocarcinoma 3. LBBB 4. GERD My treatment plan is: Continue neuraxial infusion, titrate infusion as needed Start APAP PFT as soon as tolerated Anticipate epidural removal after CT is removed For today's evaluation, I have included my personal review of Mr. Iverson's history and physic al examination. I also used the following components in my medical decision making: Laborat ory studies reviewed. Review and summary of old medical records (source: [employer]), as summarized in the body of the note. Discussion of case with another healthcare provider Nurse, surgery. Please page APS #[phone] with questions and concerns. TRINO ROACH MD Slim August NP - 05/17/2018 7:53 AM PDTFormatting of this note might be different from the origin al. INPATIENT ADULT PAIN SERVICE NEURAXIAL BLOCK PROGRESS NOTE 05/17/2018 Author: Tio Siegel NP Epidural day # 3. POD# 3. Status post: Three field esophagectomy for distal esophageal adenocarcinoma Interval events since last APS visit: Wilkerson take out and patient urinated well afterwards. Mr. Iverson complains of bilateral chest pain. His pain score at rest is 4/10. With activity, his pain score is 4/10. Specific activitie s that exacerbate Mr. Iverson's pain include most activities. Mr. Iverson is satisfied with curre nt level of pain. History of chronic or preoperative pain: no Prior to hospitalization: No significant chronic use of opioids at home ROS/Side Effects: General: negative. Nausea/Vomiting: none Pruritus: none Numbness/Weakness: none Low BP: none Dizziness: none Sedation: none Activity level: Out of bed Diet: NPO/sips/ice chips Medications: Current Facility-Administered Medications Medication Dose Route Frequency Last Rate amiodarone (CORDARONE) tablet 400 mg 400 mg feeding tube TID aspirin chewable tablet 81 mg 81 mg feeding tube DAILY bisacodyl (DULCOLAX) suppository 10 mg 10 mg rectal DAILY enoxaparin (LOVENOX) injection 40 mg 40 mg subcutaneous QPM melatonin tablet 3 mg 3 mg feeding tube QPM metoclopramide HCl (REGLAN) liquid 10 mg 10 mg feeding tube TID AC multivitamin-iron (ONE DAILY with IRON) tablet 1 tablet 1 tablet feeding tube DAILY omeprazole (PRILOSEC) oral suspension (compound) 40 mg 40 mg feeding tube BEFORE BREAK FAST potassium, sodium phosphates (NEUTRA-PHOS, PHOS-NAK) 280-160-250 mg packet 1 packet 1 packet oral ONCE pravastatin (PRAVACHOL) tablet 20 mg 20 mg feeding tube QPM propranolol (INDERAL) liquid 30 mg 30 mg oral BID Current Facility-Administered Medications Medication Dose Route Frequency Last Rate nalbuphine (NUBAIN) injection 2.5 mg 2.5 mg intravenous Q15MIN PRN naloxone (NARCAN) injection intravenous PRN ondansetron (ZOFRAN) injection 4 mg 4 mg intravenous Q12H PRN saliva substitute (MOUTH KOTE) spray oral PRN Current Facility-Administered Medications Medication Dose Route Frequency Last Rate bupivacaine 0.1 %, HYDROmorphone 20 mcg/mL in NaCl 0.9 % epidural infusion epidural C ONTINUOUS 8 mL/hr at 05/17/18 0700 Type: Epidural Rate: 8 mL/hour Anticoagulants: Enoxaparin 40mg subcutaneous daily, last dose given yesterday at 2010 hrs. Lab Results Component Value Date PLT 133 (L) 05/17/2018 Opioids: None Other analgesics: None Other psychoactive medications: melatonin 3mg daily Physical Exam: Last Vitals:BP 115/88 | Pulse 73 | Temp 36.6 C (97.9 F) | RR 16 | Ht 1.727 m (5' 7.99") | Wt 73.5 kg (162 lb 0.6 oz) | SpO2 97% | BMI 24.64 kg/(m^2) 24 hour Vitals min/max : Systolic (24hrs), Av , Min:78 , Max:140 Diastolic (24hrs), Av, Min:54, Max:88 Pulse Min: 67 Max: 80 Temp Min: 36.6 C (97.9 F) Max: 37.4 C (99.3 F) Resp Min: 9 Max: 21 SpO2 Min: 90 % Max: 99 % General Appearance and Neurological Examination: Mental Status: Alert Orientation: Oriented Sensory Level: deferred Motor: bilateral lower extremity(ies) -- No block: full flexion and extension of hip, knee and foot Neuraxial Catheter: Location: T6-T9;depth at skin 10 cm Clinically significant migration since placement? No Dressing: Intact Exit Site: Dried blood and Non-tender Insertion site exposed? No Chest tube in place. and NG/OG tube in place. Assessment: Mr. Iverson rates his pain relief as good. My personal assessment is concordant with this evaluation Wilkerson status: Epidural: at thoracic level; If Wilkerson is in place, it may be removed if deem ed appropriate by primary care team Diagnosis: Diagnosis: 1. Acute post operative chest pain 2. Esophageal adenocarcinoma 3. LBBB 4. GERD My treatment plan is: Continue neuraxial infusion, titrate infusion as needed Transition to per feeding tube pain medications once chest tubes removed. Start per feeding tube APAP scheduled Discussed with RN. Please page APS #[phone] with questions and concerns. Tio Siegel NP Chula Bishop MD - 0 05/17/2018 6:49 AM PDT RED Surgical Team: Foregut Daily Progress Note Admission Date: 05/14/2018 (Length of Stay: 3 day) Attending Provider: Doctor Pal ID: Jacob Iverson is a 67M with mild CAD, HTN, tremors, and T3N3 esophageal adenocarcinoma now sp esophagectomy Procedures: 05/14/2018 MINIMALLY INVASIVE 3 FIELD ESOPHAGECTOMY (INCLUDES J-TUBE) Operating Surgeon: Juvenal Vicente MD Interval Events: Diuresed yesterday, neg 1.5L overnight, CXR improved per my read Pain well controlled Wilkerson left in overnight as nursing wondering if we wanted to diurese more today Gillespie status, no bed available I/Os: Intake/Output Summary (Last 24 hours) at 05/17/18 0649 Last data filed at 05/17/18 0600 Gross per 24 hour Intake 569.43 ml Output 2125 ml Net -1555.57 ml Vitals: Last 24 hour min/max Temp: 37.2 C (99 F) Temp Min: 37.2 C (99 F) Max: 37.6 C (99.7 F) Pulse: 78 Pulse Min: 67 Max: 80 Resp: 15 Resp Min: 9 Max: 21 BP: 108/70 BP Min: 78/61 Max: 140/85 SpO2: 97 % SpO2 Min: 90 % Max: 99 % Body mass index is 24.64 kg/m. Physical Exam: General: pleasant and talking; seems to be mentating well HEENT: NGT in place bridled; flushed and sumping. L neck drain SS Respiratory: breathing comfortably. CTs in place with SS output, no obvious leak. CV: regular rate and rhythm on tele, HR in the 80s Abdomen: soft, nondistended; Incisions well approximated covered in surgical glue Jtube ca pped. Extremities: Warm and well perfused, no peripheral edema Labs: Lab Results Component Value Date WBC 8.65 05/17/2018 HB 8.6 05/17/2018 HCT 25.5 05/17/2018 PLT 133 05/17/2018 MCV 100.8 05/17/2018 RDW 50.5 05/17/2018 Lab Results Component Value Date NA 143 05/17/2018 K 4.0 05/17/2018 CL 108 05/17/2018 BICARB 30 05/17/2018 BUN 17 05/17/2018 CR 0.67 05/17/2018 GLU 95 05/17/2018 CA 8.2 05/17/2018 Recent Labs 04/09/18 1601 04/30/18 1415 05/16/18 0006 05/16/18 1756 05/17/18 0024 AST 26 28 -- -- -- -- ALT 19 29 -- -- -- -- TBILI 0.5 0.6 -- -- -- -- AP 88 102 -- -- -- -- ALB 3.2* 3.4* < > 2.3* 2.1* 2.2* TP 6.6 7.1 -- -- -- -- < > = values in this interval not displayed. No results found for: INRPT Imaging: CXR 05/17: Per my read, some R sided subdiaphgragmatic air, improvement in R pneumothorax a nd hilar opacities Assessment and Plan: Jacob Iverson is a 67 yo with CAD (moderate based on 2008 cath managed medically), HTN , tremors and T3N3 esophageal cancer sp neoadjuvant chemoRT and now sp ALEX 3 field esophagec jason 05/14.Doing well and remains on pathway. Today's goals: -start trickle tube feeds at 10cc/hr (will keep at trickle until flatus) -dietitian to see patient -start cerovite MVI -continue STRICT NPO (no ice chips, no sips, swabs OK) -Amiodarone tablets 400mg TID per J-tube x 5 days -continue epidural and appreciate APS -remove wilkerson -transfer to 13k with telemetry - Start suppository - Removeal of chest tube per CT surgery Neuro #pain: appreciate APS, epidrual #depression: restart cymbalta when able #Tremors: managed with propranolol ICU delirium precautions: involve in care discussions, frequent orientation, day night sche dule, melatonin at night Pulm #respiratory insufficiency -IS, pulm toilet, OOB to chair -smoking history, inhalers if needed CV #HTN #CAD -home propranolol via Jtube -ASA, statin when able #Afib prophy -amio 400mg TID for 5 days GI #T3N3 esophageal adenocarcinoma -sp esophagectomy -path pending -PPI -scheduled reglan -NGT stays to LIWS for now HENT: -keep CHELLE until less than 30 FEN -replete lytes Mg >2 and K>4 and check dialy -STRICT NPO Renal No active issues or concerns Remove today ID No active issues Heme PPx lovenox Daily labs for now Endo -monitor, blood sugars controlled no DM Disposition: transfer to critical access hospital Brian Villafuerte MD Otolaryngology-Head & Neck Surgery, PGY1 Pager: [phone] STAFF: I personally interviewed the patient, performed the pertinent parts of the physical examina tion and personally formulated the plan with the resident. I agree with the residents docum entation and have documented any additions or exceptions. Chula Bishop MD - 05/16 8:47 AM PDT RED Surgical Team: Foregut Daily Progress Note Admission Date: 05/14/2018 (Length of Stay: 2 day) Author: DARIN ZARAGOZA MD Attending Provider: Doctor Pal ID: Jacob Iverson is a 67M with mild CAD, HTN, tremors, and T3N3 esophageal adenocarcinoma now sp esophagectomy Procedures: 05/14/2018 MINIMALLY INVASIVE 3 FIELD ESOPHAGECTOMY (INCLUDES J-TUBE) Operating Surgeon: Juvenal Vicente MD Interval Events: No overnight events "I don't remember" how the night went Does state that he was able to get some sleep Was on RA but now on 3L NC HR improved after restarting propranolol UOP 20-30 an hour; positive another 2L yesterday Some L sided flank pain Up to chair, no walking yet I/Os: Intake/Output Summary (Last 24 hours) at 05/16/18 0847 Last data filed at 05/16/18 0800 Gross per 24 hour Intake 3155.47 ml Output 1487 ml Net 1668.47 ml NGT: 200 (200) R CT: 350 (210) L CT: 285 (14) CHELLE: 65 (35) Vitals: Last 24 hour min/max Temp: 37.4 C (99.3 F) Temp Min: 37.3 C (99.1 F) Max: 38.5 C (101.3 F) Pulse: 80 Pulse Min: 76 Max: 126 Resp: 18 Resp Min: 9 Max: 24 BP: 140/85 BP Min: 80/62 Max: 140/85 SpO2: 97 % SpO2 Min: 92 % Max: 100 % Body mass index is 24.64 kg/m. Physical Exam: General: up to chair, pleasant and talking; seems to be mentating well but not hearing well HEENT: NGT in place bridled; flushed and sumping Respiratory: breathing comfortably but on 3L; satting mid to upper 90s. CTs in place with SS output, no obvious leak. Crepitus around right chest tube CV: regular rate and rhythm on tele, HR in the 80s Abdomen: soft, nondistended; Incisions well approximated covered in surgical glue Jtube ca pped Extremities: Warm and well perfused, no peripheral edema Labs: Lab Results Component Value Date WBC 11.30 05/16/2018 HB 9.5 05/16/2018 HCT 27.9 05/16/2018 PLT 143 05/16/2018 MCV 100.7 05/16/2018 RDW 50.9 05/16/2018 Lab Results Component Value Date NA 142 05/16/2018 K 4.0 05/16/2018 CL 109 05/16/2018 BICARB 29 05/16/2018 BUN 16 05/16/2018 CR 0.74 05/16/2018 GLU 107 05/16/2018 CA 8.0 05/16/2018 Recent Labs 04/09/18 1601 04/30/18 1415 05/14/18 1730 05/15/18 0049 05/16/18 0006 AST 26 28 -- -- -- ALT 19 29 -- -- -- TBILI 0.5 0.6 -- -- -- AP 88 102 -- -- -- ALB 3.2* 3.4* 2.7* 2.4* 2.3* TP 6.6 7.1 -- -- -- No results found for: INRPT Imaging: Reviewed: no conduit dilation, lungs more edematous, increasing subQ air on right. Assessment and Plan: Jaocb Iverson is a 67 yo with CAD (moderate based on 2008 cath managed medically), HTN , tremors and T3N3 esophageal cancer sp neoadjuvant chemoRT and no sp ALEX 3 field esophagect lizz 05/14. Doing well and remains on pathway. Today's goals: -start trickle tube feeds at 10cc/hr (will keep at trickle until flatus) -dietitian to see patient -start cerovite MVI -continue STRICT NPO (no ice chips, no sips, swabs OK) -transition to Amiodarone tablets 400mg TID per J-tube x 5 days -continue epidural and appreciate APS -stop mIVF and diurese with 10mg lasix -remove CVC -remove wilkerson later today after diuresis -transfer to critical access hospital with telemetry Neuro #pain: appreciate APS, epidrual #depression: restart cymbalta when able #Tremors: managed with propranolol ICU delirium precautions: involve in care discussions, frequent orientation, day night sche dule, melatonin at night Pulm #respiratory insufficiency -IS, pulm toilet, OOB to chair -smoking history, inhalers if needed CV #HTN #CAD -home propranolol via Jtube -ASA, statin when able #Afib prophy -amio 400mg TID for 5 days GI #T3N3 esophageal adenocarcinoma -sp esophagectomy -path pending -PPI -scheduled reglan -keep CHELLE until less than 30 -NGT stays to LIWS for now FEN -stop mIVF, start diuresis -replete lytes Mg >2 and K>4 and check dialy -STRICT NPO Renal No active issues or concerns Remove later today after diuresis ID No active issues; mild leukocytosis likely reactive Heme PPx lovenox Daily labs for now Endo -monitor, blood sugars controlled no DM Disposition: transfer to critical access hospital Seen and discussed with Dr Chula Pal MD Signed: DARIN ZARAGOZA MD General Surgery [facility] Department of Surgery STAFF: I personally interviewed the patient, performed the pertinent parts of the physical examina tion and personally formulated the plan with the resident. I agree with the residents docum entation and have documented any additions or exceptions. hEvelyn olivares NP - 0 05/16/2018 8:13 AM PDT INPATIENT ADULT PAIN SERVICE NEURAXIAL BLOCK PROGRESS NOTE 05/16/2018 Author: Evelyn Mancia NP Epidural day # 2. POD# 2. Status post: Status post: Three field esophagectomy for distal esophageal adenoc arcinoma Previously Obtained: Past Medical History: Diagnosis Date Cervical spinal stenosis Coronary artery disease 2007 diagnosed on angiogram when experienced chest pain - treated with medications, pain attrib uted to esophageal spasm, never had NY or stent Diverticulosis GERD without esophagitis Hernia, hiatal Hyperlipidemia LBBB (left bundle branch block) Malignant neoplasm (HCC) stomach cancer Sleep apnea no longer using CPAP since weight loss and not snoring any more Interval events since last APS visit: Extubated yesterday, epidural solution changed to in clude local anesthetic + opioid. Some difficulty remembering to use PCEA overnight, epidura l rate increased. Up to chair twice this morning already. Significant pain yesterday and epi dural infusion increased up to 14 mL/hr. Mr. Iverson complains of bilateral chest pain. Does not give pain scores, tells me his pain is c Specific activities that exacerbate Mr. Naveen rushing's pain include coughing and most activities. Mr. Iverson is satisfied with current level o f pain. History of chronic or preoperative pain: no Prior to hospitalization: No significant chronic use of opioids at home ROS/Side Effects: General: negative. Nausea/Vomiting: none Pruritus: mild Numbness/Weakness: none Low BP: none Dizziness: none Sedation: Mild. Tells me he is also feeling sleep deprived. Activity level: Out of bed Diet: NPO/sips/ice chips Medications: Current Facility-Administered Medications Medication Dose Route Frequency Last Rate amiodarone (CORDARONE) tablet 400 mg 400 mg feeding tube TID aspirin chewable tablet 81 mg 81 mg feeding tube DAILY chlorhexidine (PERIDEX) mouthwash 15 mL 15 mL oral Q6H enoxaparin (LOVENOX) injection 40 mg 40 mg subcutaneous QPM melatonin tablet 3 mg 3 mg feeding tube QPM metoclopramide HCl (REGLAN) liquid 10 mg 10 mg feeding tube TID AC pantoprazole (PROTONIX) injection 40 mg 40 mg intravenous DAILY pravastatin (PRAVACHOL) tablet 20 mg 20 mg feeding tube QPM propranolol (INDERAL) tablet 30 mg 30 mg feeding tube BID Current Facility-Administered Medications Medication Dose Route Frequency Last Rate nalbuphine (NUBAIN) injection 2.5 mg 2.5 mg intravenous Q15MIN PRN naloxone (NARCAN) injection intravenous PRN ondansetron (ZOFRAN) injection 4 mg 4 mg intravenous Q12H PRN Current Facility-Administered Medications Medication Dose Route Frequency Last Rate bupivacaine 0.05 %-HYDROmorphone 20 mcg/mL epidural infusion epidural CONTINUOUS 14 m L/hr at 05/16/18 0700 lactated Ringers IV 100 mL/hr intravenous CONTINUOUS Stopped (05/16/18 0700) Type: Epidural Rate: 14 mL/hour Anticoagulants: Enoxaparin 40mg subcutaneous daily, last dose given yesterday at 1943 hrs. Lab Results Component Value Date PLT 143 (L) 05/16/2018 Opioids: None Other analgesics: None Other psychoactive medications: None Physical Exam: Last Vitals:BP 119/79 | Pulse 76 | Temp 37.6 C (99.7 F) | RR 21 | Ht 1.727 m (5' 7.99") | Wt 73.5 kg (162 lb 0.6 oz) | SpO2 96% | BMI 24.64 kg/(m^2) 24 hour Vitals min/max : Systolic (24hrs), Av , Min:80 , Max:138 Diastolic (24hrs), Av, Min:62, Max:90 Pulse Min: 76 Max: 126 Temp Min: 37.3 C (99.1 F) Max: 38.5 C (101.3 F) Resp Min: 9 Max: 24 SpO2 Min: 92 % Max: 100 % General Appearance and Neurological Examination: Mental Status: Alert with some mild sedation Orientation: Oriented Sensory Level: deferred Motor: bilateral lower extremity(ies) -- No block: full flexion and extension of hip, knee and foot Neuraxial Catheter: Location: T6-T9;depth at skin 10 cm (placed at 10cm) Clinically significant migration sinc e placement? No Dressing: Intact Exit Site: Clean and Non-tender Insertion site exposed? No Chest tube in place. and NG/OG tube in place. Assessment: Mr. Iverson rates his pain relief as good now, with epidural increases. My personal assessment is concordant with this evaluation Given his constricted pupils, slow speech and apparent mild sedation adjust epidural soluti on to include less opioid. He complains of pain with activity, so a concentrated local anesthetic may help with the ir ritation associated with his chest tubes. Wilkerson status: Epidural: at thoracic level; If Wilkerson is in place, it may be removed if deem ed appropriate by primary care team Diagnosis: 1. Acute post operative chest pain 2. Esophageal adenocarcinoma 3. LBBB 4. GERD My treatment plan is: Continue neuraxial infusion, titrate infusion as needed Change epidural solution to include more local anesthetic. If more awake following epidural solution change, can consider adding a small dose of loraz epam at HS PRN. Would not do his full home dose, but rather 0.25 or 0.5 mg PFT instead. Transition to per feeding tube pain medications once chest tubes removed. Start per feeding tube APAP scheduled I discussed our findings and recommendations with primary care team provider Gia BILLY, will discuss with TSICU. Evelyn Mancia NP Adult Pain Service Pager [phone] Team Pager [phone] Darius Chu MD - 05/16/2018 7:46 AM PDT Trauma and Surgical ICU Daily Progress Note Author: CHULA LIAO MD Date: 05/16/2018 7:46 AM Hospital Day: 2 ICU Day: 2 HPI: 67 y/o male with esophageal adenocarcinoma here after esophagectomy Procedures: 05/14: 3 field minimally invasive esophagectomy 24hr Events: - No acute overnight events Medications and Laboratory Tests: Have been reviewed and can be referenced in the EMR. Notable values discussed in appopriate Assessment/Plan section below Vital Signs: Last Vitals: BP 119/79 | Pulse 76 | Temp 37.6 C (99.7 F) | RR 21 | Ht 1.727 m (5' 7.99" ) | Wt 73.5 kg (162 lb 0.6 oz) | SpO2 96% | BMI 24.64 kg/(m^2) 24 Hour Vital Min/Max: Systolic (24hrs), Av , Min:80 , Max:138 Diastolic (24hrs), Av, Min:62, Max:90 Pulse Min: 76 Max: 126 Temp Min: 37.3 C (99.1 F) Max: 38.5 C (101.3 F) Resp Min: 9 Max: 24 SpO2 Min: 92 % Max: 100 % Intake/Output Summary (Last 24 hours) at 05/16/18 0746 Last data filed at 05/16/18 0700 Gross per 24 hour Intake 3289.67 ml Output 1487 ml Net 1802.67 ml Physical Exam: Gen: Alert, in no acute distress HEENT: Atraumatic, PERRL, moist mucous membranes; neck incisions intact and clean; DHT in p lace Chest/Pulm: Lungs CTAB, normal respiratory effort Cardiac: RRR, normal heart sounds, no murmurs Abdomen: Soft, non-tender, nondistended; no rebound, guarding, or masses; incisions without signs of infection Extremities: Warm, trace bilateral peripheral edema. Symmetric 2+ radial pulses Neuro: No focal deficits Psych: Normal affect Skin: No rashes or bruising Summary: This is a 67 year old male s/p esophagectomy for adenocarcinoma Neurology: No active issues HEENT: No active issues Pulmonary/Thoracic: Hypoxic respiratory insufficiency - Extubated yesterday; now on 3L NC - 10mg of Lasix today for mild diuresis - Continue to wean respiratory support as tolerated Cardiovascular: Atrial fibrillation prophylaxis - Continue amiodarone 400mg TID CAD - ASA 81mg Gastrointestinal/Abdominal: Esophageal adenocarcinoma - S/p 3-field minimally invasive esophagectomy - Maintain drains - Daily CXR to assess conduit (no evidence of dilation today) - Maintain NGT and do not manipulate - Start trickle feeds today per surgical team Fluids/Electrolytes/Nutrition: Mild hypervolemia - 10mg lasix per primary team - Stopping mIVF Renal: No active issues Hematology: Mild Anemia - H&H stable at 9.5/27 - Continue to monitor Infectious Diseases: No active issues Endocrinology: No active issues Musculoskeletal/Skin: No active issues Feeding: Start trickle feeds today Analgesia: APAP, oxy, HM Sedation: None Thromboembolic Prophylaxis: Lovenox Head of Bed:>30 degrees Ulcer Prophylaxis: Omeprazole Glycemic Control/Monitoring: CBG's stable Y: None B: None till taking enteral feeds I: Deescalation of Antibiotics: None Spines:Cleared CODE: Full Disposition: Transfer to [facility] Chula Liao MD Emergency Medicine Resident, PGY2 [facility] Pager #[phone] I saw and evaluated the patient. I agree with the findings and the plan of care as tom godfrey in the resident s note. DARIUS PIEDRA MD [address] [place] [phone] hLeidy gregg PA- C - 05/15/2018 11:22 AM PDT Trauma and Surgical ICU Daily Progress Note Author: LEIDY GUSMAN PA-C Date: 05/15/2018 11:23 AM Hospital Day: 1 ICU Day: 2 HPI: Jacob Iverson is a 67 y.o. M with CAD (on ASA, statin, beta chel, no stents), HLD, HTN , depression, [id number] esophageal adenocarcinoma diagnosed in 11/11 after workup for dyspahgi a, melena, and 30 lb unintentional weight loss. Underwent neoadjuvant chemoradiation therapy with good response. Taken to OR today for planned esophagectomy. Procedures: 05/14/18 - 3-field minimally invasive esophagectomy 24hr Events: - Arrived to TSICU - No acute events overnight - SBT this morning - Extubated during rounds Medications and Laboratory Tests: Have been reviewed and can be referenced in the EMR Vital Signs: Last Vitals: BP 126/86 | Pulse 126 | Temp 38.2 C (100.8 F) | RR 20 | Ht 1.727 m (5' 7.9 9") | Wt 73.5 kg (162 lb 0.6 oz) | SpO2 94% | BMI 24.64 kg/(m^2) 24 Hour Vital Min/Max: Systolic (24hrs), Av , Min:80 , Max:156 Diastolic (24hrs), Av, Min:57, Max:88 Pulse Min: 56 Max: 126 Temp Min: 36.8 C (98.2 F) Max: 38.2 C (100.8 F) Resp Min: 9 Max: 24 SpO2 Min: 92 % Max: 100 % Intake/Output Summary (Last 24 hours) at 05/15/182010 Last data filed at 05/15/18 1900 Gross per 24 hour Intake 3805.81 ml Output 1441 ml Net 2364.81 ml Physical Exam: Physical Exam Constitutional: Well developed male intubate laying in bed Eyes: Conjunctivae and EOM are normal. Neck: Surgical neck drain w/ s/s output Cardiovascular: Regular rhythm. Mild tachycardia Pulmonary/Chest: He has no wheezes. Intubated on PSV Abdominal: Surgical incisions closed with glue Genitourinary: Genitourinary Comments: Wilkerson in place with clear yellow urine Musculoskeletal: Normal range of motion. Neurological: GCS 11t (E4, V1t, M6) Plans: Neurology: Pain - Epidural by APS - Fentanyl d/c HEENT: No active issues Pulmonary/Thoracic: Acute hypoxic respiratory insuffiencey - Extubated following rounds - Wean nasal cannula as able - IS, pulm toilet Cardiovascular: Atrial fibrillation risk - Amiodarone Infusion for 24 hours - Per feeding tube amiodarone tomorrow Hx of HTN and essential tremor - Patient takes Propranolol 60 mg XR at home - Will restart 30 mg today and increase if needed to full dose Hx of CAD - 81 mg Aspirin per feeding tube Gastrointestinal/Abdominal: Esophageal adenocarcinoma - S/p 3-field minimally invasive esophagectomy - Maintain drains - Daily CXR to assess conduit (no evidence of dilation today) - Maintain NGT and do not manipulate Fluids/Electrolytes/Nutrition: No active issues - Decrease MIVF to 100 mL/hr from 125 - Electrolytes WNL Renal: No active issues - Maintain wilkerson and monitor output - Creatinine 0.64 Hematology: No active issues - Hb 9.6 from 9.7 - Platelets 126 from 149 Infectious Diseases: No active issues - WBC 6.42 from 7.97 Endocrinology: No active issues - CBG's WNL Musculoskeletal/Skin: No active issues - PT/OT ordered and patient to chair today RESOLVED ISSUES: None F: NPO A: Epidural S: None T: SCD's and Lovenox H:>30 degrees U: IV Protonix G: None needed Y: None needed B: None I: PIV's, CVC, arterial line (remove today), wilkerson, NGT tube D: None to d/c Spines: All clear CODE: Full Code Disposition: Continue ICU care. I spent 39 minutes of critical care time independent of time spent in conjunction with my s upervising physicians. LEIDY GUSMAN PA-C Division of Trauma Department of Surgery Mail Code: [id number] [place] [address] Associated attestation - Debra Jon MD,MPH - 05/22/2018 10:21 AM PDTI was present and rounded with the ILIANA Gusman on multidisciplinary ICU rounds today. I interviewed and e xamined the patient. I reviewed the history, as documented today. I participated in the deve lopment of and agree with the assessment and plan. Amiodarone and beta blockade today. Darin Zaragoza MD - 05/15/2018 10:03 AM PDTFormatting of this note might be different fro m the original. RED Surgical Team: [facility] Daily Progress Note Admission Date: 05/14/2018 (Length of Stay: 1 day) Author: DARIN ZARAGOZA MD Attending Provider: Juvenal Vicente MD ID: Jacob Iverson is a 67M with mild CAD, HTN, tremors, and T3N3 esophageal adenocarcinoma now sp esophagectomy Procedures: 05/14/2018 MINIMALLY INVASIVE 3 FIELD ESOPHAGECTOMY (INCLUDES J-TUBE) Operating Surgeon: Juvenal Vicente MD Interval Events: To the OR yesterday, no issues and did well Overnight would get agitated when sedation weaned, systolic up into the 190s Unable to place on PS Otherwise HD stable, making urine Extubating this morning I/Os: Intake/Output Summary (Last 24 hours) at 05/15/18 1003 Last data filed at 05/15/18 0800 Gross per 24 hour Intake 4917.47 ml Output 1114 ml Net 3803.47 ml NGT: [address]: [address]: 14 CHELLE: 35 Vitals: Last 24 hour min/max Temp: 37.4 C (99.3 F) Temp Min: 35.9 C (96.6 F) Max: 37.4 C (99.3 F) Pulse: 106 Pulse Min: 54 Max: 111 Resp: (!) 10 Resp Min: 10 Max: 20 BP: 110/70 BP Min: 90/60 Max: 159/98 SpO2: 100 % SpO2 Min: 100 % Max: 100 % Body mass index is 24.64 kg/m. Physical Exam: General: intubated and sedatio HEENT: Intubated. NGT bridled to LIWS and functioning. Neck incision well approximated, drain with SS output. Respiratory: Intubated satting well on minimal settings. Right chest tube with trace air l eak SS output, left CT with SS output no leak CV: regular rate and rhythm on tele Abdomen: soft, nondistended; Incisions well approximated covered in surgical glue Jtube ca pped Extremities: Warm and well perfused, no peripheral edema Labs: Lab Results Component Value Date WBC 6.42 05/15/2018 HB 9.6 05/15/2018 HCT 27.2 05/15/2018 PLT 126 05/15/2018 MCV 97.1 05/15/2018 RDW 48.4 05/15/2018 Lab Results Component Value Date NA 145 05/15/2018 K 3.8 05/15/2018 CL 112 05/15/2018 BICARB 26 05/15/2018 BUN 15 05/15/2018 CR 0.64 05/15/2018 GLU 127 05/15/2018 CA 8.4 05/15/2018 Recent Labs 04/09/18 1601 04/30/18 1415 05/14/18 1730 05/15/18 0049 AST 26 28 -- -- ALT 19 29 -- -- TBILI 0.5 0.6 -- -- AP 88 102 -- -- ALB 3.2* 3.4* 2.7* 2.4* TP 6.6 7.1 -- -- No results found for: INRPT Imaging: Reviewed: no conduit dilation, lungs clear Assessment and Plan: Jacob Iverson is a 67 yo with CAD (moderate based on 2008 cath managed medically), HTN , tremors and T3N3 esophageal cancer sp neoadjuvant chemoRT and no sp ALEX 3 field esophagect lizz 05/14. Doing well and remains on pathway Goals for today: -extubate, IS, OOB to chair -OK for use Jtube for meds -transition off fentanyl and onto epidural alone as able (management per APS, consider loca l) -decrease mIVF to 100 -start IV amio infusion (150mg loading dose followed by 0.62mg/min continuous infusion x 24 hours) -would restart home propranolol as pressures allow otherwise IV metoprolol (would prefer pr opranolol due to tremor history but defer to ICU) -remove Nadia -CTs to water seal (per thoracic) -PT/OT -lovenox to start tonight, OK to restart ASA Neuro #pain: appreciate APS, transition off fentanyl and start ramping up epidural #sedation: none needed once extubated #depression: restart cymbalta when able #Tremors: managed with propranolol, restart as pressures allow ICU delirium precautions: involve in care discussions, frequent orientation, day night sche dule, melatonin at night Pulm #respiratory insufficiency/intubated -extubate -IS, pulm toilet, OOB to chair -smoking history, inhalers if needed CV #HTN #CAD -start BB, propranolol vs metop if pressures soft -ASA, statin when able #Afib prophy -amio gtt today, then 400mg TID for 5 days GI #T3N3 esophageal adenocarcinoma -sp esophagectomy -path pending -PPI, transition to enteral -scheduled reglan -keep CHELLE until less than 30 -NGT to LIWS for now FEN -decrease fluids to 100 -replete lytes Mg >2 and K>4 and check dialy -STRICT NPO Renal No active issues or concerns Keep wilkerson today, likely take out tomorrow ID No active issues Heme PPx lovenox tonight Daily labs for now Endo -monitor, blood sugars controlled no DM Disposition: ICU today, anticipate transfer tomorrow Juvenal Vicente MD is the attending of record for this encounter. Signed: DARIN ZARAGOZA MD General Surgery [facility] Department of Surgery Mary Janeexvidhi, Cherie Ang MD - 05/15/2018 7:38 AM PDT Thoracic Surgery Brief Inpatient Progress Note Patient name: JACOB IVERSON Attending: Dalton Wisdom MD Procedure day: 1 (05/14) Procedure: 3-field MIS esophagectomy 24 hour events: - No acute events - Some issues with agitation overnight - Planning to perform SBT this AM 24 hour vitals: Last 24 hour min/max Temp: 37.4 C (99.3 F) Temp Min: 35.9 C (96.6 F) Max: 37.4 C (99.3 F) Pulse: 76 Pulse Min: 54 Max: 111 Resp: 14 Resp Min: 14 Max: 20 BP: 90/60 BP Min: 90/60 Max: 159/98 SpO2: 100 % SpO2 Min: 100 % Max: 100 % Body mass index is 24.64 kg/m. Right chest tube output: 210 since OR, serosanguinous small air leak, to suction Left chest tube output: 14cc since OR, serosanguinous, no air leak, to suction Lab Results Component Value Date NA 145 05/15/2018 K 3.8 05/15/2018 CL 112 05/15/2018 BICARB 26 05/15/2018 BUN 15 05/15/2018 CR 0.64 05/15/2018 GLU 127 05/15/2018 CA 8.4 05/15/2018 Lab Results Component Value Date WBC 6.42 05/15/2018 HB 9.6 05/15/2018 HCT 27.2 05/15/2018 PLT 126 05/15/2018 MCV 97.1 05/15/2018 RDW 48.4 05/15/2018 Brief Exam: Gen: Intubated, sedated Pulm: Unlabored breathing on Vol A/C, 30% FiO2, breath sounds coarse anteriorly Card: RRR, sinus rhythm on monitor Abd: soft, non-distended Ext: moving all extremities spontaneously Drains: chest tubes in place to suction Assessment: Jacob Iverson is a 67 y.o. M with CAD, HLD, and HTN who was diagnosed with T3N3M0 esophageal adenocarcinoma s/p neoadjuvant therapy with good response. On 05/14, he underwent 3-field MIS esophagectomy. Plan (Thoracic surgery specific issues): - Can place chest tubes to waterseal after extubation (hopefully this AM) - Continue on esophagectomy pathway - Rest of care per Red surgery and TSICU - Thoracic surgery will continue to follow along - Pt discussed with MD Cherie Wagoner MD General Surgery, R4 Pager # [phone] hitEvelyn patrick N P - 05/15/2018 7:24 AM PDT INPATIENT ADULT PAIN SERVICE NEURAXIAL BLOCK PROGRESS NOTE 05/15/2018 Author: Evelyn Mancia, [facility] Epidural day # 1. POD# 1. Status post: Three field esophagectomy for distal esophageal adenocarcinoma Previously Obtained: Past Medical History: Diagnosis Date Cervical spinal stenosis Coronary artery disease 2007 diagnosed on angiogram when experienced chest pain - treated with medications, pain attrib uted to esophageal spasm, never had NY or stent Diverticulosis GERD without esophagitis Hernia, hiatal Hyperlipidemia LBBB (left bundle branch block) Malignant neoplasm (HCC) stomach cancer Sleep apnea no longer using CPAP since weight loss and not snoring any more Interval events since last APS visit: In ICU intubated. On dexmedetomidine infusion. Agita epifanio but directable. Mr. Iverson complains of endotracheal tube discomfort. Unable to obtain much information in regard to pain at the moment. ROS/Side Effects: I was not able to conduct a Review of Systems because Mr. Iverson was unable to communicate. Activity level: In bed all the time Diet: NPO/sips/ice chips Medications: Current Facility-Administered Medications Medication Dose Route Frequency Last Rate [START ON 05/16/2018] amiodarone (CORDARONE) tablet 400 mg 400 mg feeding tube TID chlorhexidine (PERIDEX) mouthwash 15 mL 15 mL oral Q6H enoxaparin (LOVENOX) injection 40 mg 40 mg subcutaneous QPM metoclopramide HCl (REGLAN) liquid 10 mg 10 mg feeding tube TID AC pantoprazole (PROTONIX) injection 40 mg 40 mg intravenous DAILY pravastatin (PRAVACHOL) tablet 20 mg 20 mg feeding tube QPM Current Facility-Administered Medications Medication Dose Route Frequency Last Rate fentaNYL (SUBLIMAZE) bolus from continuous infusion 50-100 mcg 50-100 mcg intravenous Q30MIN PRN nalbuphine (NUBAIN) injection 2.5 mg 2.5 mg intravenous Q15MIN PRN naloxone (NARCAN) injection intravenous PRN ondansetron (ZOFRAN) injection 4 mg 4 mg intravenous Q12H PRN propofol (DIPRIVAN) bolus from continuous infusion 10-20 mg 10-20 mg intravenous Q15MI N PRN Current Facility-Administered Medications Medication Dose Route Frequency Last Rate amiodarone (CORDARONE) 900 mg in dextrose 5 % 500 mL (1.8 mg/mL) IV infusion 0.62 mg/m in intravenous CONTINUOUS 0.62 mg/min (05/15/18 0700) dexmedetomidine (PRECEDEX) 400 mcg in NaCl 0.9 % 100 mL (4 mcg/mL) IV infusion 0.2-0.7 mcg/kg/hr intravenous CONTINUOUS fentaNYL (SUBLIMAZE) 2500 mcg/250 mL (10 mcg/mL) IV infusion (RTU) 12.5-200 mcg/hr int ravenous CONTINUOUS 75 mcg/hr (05/15/18 07) lactated Ringers IV 125 mL/hr intravenous CONTINUOUS 125 mL/hr (05/15/18699) propofol (DIPRIVAN) injection 0.5-50 mcg/kg/min intravenous CONTINUOUS 40 mcg/kg/min ( 05/15/18699) sodium acetate-chloride (50:50) 3% IV infusion (hypertonic) 75 mL/hr intravenous FRANCIS NUOUS Stopped (05/14/18 1733) SUFentanil 2 mcg/mL in NaCl 0.9 % epidural infusion epidural CONTINUOUS Type: Epidural Rate: 2 mL/hour Anticoagulants: No Lab Results Component Value Date PLT 126 (L) 05/15/2018 Opioids: Fentanyl IV 75 mcg/hr gtt and 400 mcg prn Other analgesics: None Other psychoactive medications: propofol gtt 40 mcg/kg/min Physical Exam: Last Vitals:BP 90/60 | Pulse 76 | Temp 37.4 C (99.3 F) | RR 14 | Ht 1.727 m (5' 7.99") | Wt 73.5 kg (162 lb 0.6 oz) | SpO2 100% | BMI 24.64 kg/(m^2) 24 hour Vitals min/max : Systolic (24hrs), Av , Min:90 , Max:159 Diastolic (24hrs), Av, Min:57, Max:98 Pulse Min: 54 Max: 111 Temp Min: 35.9 C (96.6 F) Max: 37.4 C (99.3 F) Resp Min: 14 Max: 20 SpO2 Min: 100 % Max: 100 % General Appearance and Neurological Examination: Mental Status: Agitated Orientation: Coherent Sensory Level: deferred Motor: bilateral lower extremity(ies) -- No block: full flexion and extension of hip, knee and foot Neuraxial Catheter: Deferring assessment until post extubation. Chest tube in place. and NG/OG tube in place. Assessment: Mr. Iverson rates his pain relief as unable to evaluate due to intubation, distracted by ET tu be. . Wilkerson status: Epidural: at thoracic level; If Wilkerson is in place, it may be removed if deem ed appropriate by primary care team Diagnosis: 1. Acute post operative chest pain 2. Esophageal adenocarcinoma 3. LBBB 4. GERD My treatment plan is: Continue neuraxial infusion, titrate infusion as extubation nears can increase rate as need ed. Stop fentanyl with extubation. Can add local anesthetic to epidural solution once extubated and hemodynamically stable. APS will reassess once extubated. I discussed our findings and recommendations with primary care team provider Tamera HELMS. Evelyn Mancia NP Adult Pain Service Pager [phone] Team Pager [phone] documented in this e ncounter Plan of Treatment Not on filedocumented as of this encounter Procedures + +--------+ + + + | Procedure Name | Priori | Date/Time | Associated Diagnosis | Comments | | | ty | | | | + +--------+ + + + | RENAL FUNCTION SET | Urgent | 05/22/2018 | Esophageal cancer, | Results for this | | (NA,K,CL,CO2,BUN,CRE | | 5:49 AM | stage IIIA (HCC) | procedure are in the | | AT,GLUC,CA,PHOS,ALB | | PDT | Malignant neoplasm | results section. | | ) | | | of lower third of | | | | | | esophagus (HCC) | | + +--------+ + + + | MAGNESIUM, PLASMA | Urgent | 05/22/2018 | Esophageal cancer, | Results for this | | | | 5:49 AM | stage IIIA (HCC) | procedure are in the | | | | PDT | Malignant neoplasm | results section. | | | | | of lower third of | | | | | | esophagus (HCC) | | + +--------+ + + + | X-RAY PORTABLE CHEST | Urgent | 05/22/2018 | Esophageal cancer, | Results for this | | 1 VIEW | | 4:48 AM | stage IIIA (HCC) | procedure are in the | | | | PDT | Malignant neoplasm | results section. | | | | | of lower third of | | | | | | esophagus (HCC) | | + +--------+ + + + | PROCEDURE NOTE | Routin | 05/21/2018 | | Results for this | | | e | 10:12 AM | | procedure are in the | | | | PDT | | results section. | + +--------+ + + + | X-RAY ESOPHAGRAM | Routin | 05/21/2018 | | Results for this | | | e | 8:48 AM | | procedure are in the | | | | PDT | | results section. | + +--------+ + + + | RENAL FUNCTION SET | Urgent | 05/21/2018 | Esophageal cancer, | Results for this | | (NA,K,CL,CO2,BUN,CRE | | 7:14 AM | stage IIIA (HCC) | procedure are in the | | AT,GLUC,CA,PHOS,ALB | | PDT | Malignant neoplasm | results section. | | ) | | | of lower third of | | | | | | esophagus (HCC) | | + +--------+ + + + | MAGNESIUM, PLASMA | Urgent | 05/21/2018 | Esophageal cancer, | Results for this | | | | 7:14 AM | stage IIIA (HCC) | procedure are in the | | | | PDT | Malignant neoplasm | results section. | | | | | of lower third of | | | | | | esophagus (HCC) | | + +--------+ + + + | X-RAY PORTABLE CHEST | Urgent | 05/21/2018 | Esophageal cancer, | Results for this | | 1 VIEW | | 4:55 AM | stage IIIA (HCC) | procedure are in the | | | | PDT | Malignant neoplasm | results section. | | | | | of lower third of | | | | | | esophagus (HCC) | | + +--------+ + + + | CARDIOLOGY | | 05/21/2018 | | Results for this | | | | 12:00 AM | | procedure are in the | | | | PDT | | results section. | + +--------+ + + + | X-RAY PORTABLE CHEST | Urgent | 05/20/2018 | Esophageal cancer, | Results for this | | 1 VIEW | | 7:37 AM | stage IIIA (HCC) | procedure are in the | | | | PDT | Malignant neoplasm | results section. | | | | | of lower third of | | | | | | esophagus (HCC) | | + +--------+ + + + | RENAL FUNCTION SET | Urgent | 05/20/2018 | Esophageal cancer, | Results for this | | (NA,K,CL,CO2,BUN,CRE | | 5:28 AM | stage IIIA (HCC) | procedure are in the | | AT,GLUC,CA,PHOS,ALB | | PDT | Malignant neoplasm | results section. | | ) | | | of lower third of | | | | | | esophagus (HCC) | | + +--------+ + + + | MAGNESIUM, PLASMA | Urgent | 05/20/2018 | Esophageal cancer, | Results for this | | | | 5:28 AM | stage IIIA (HCC) | procedure are in the | | | | PDT | Malignant neoplasm | results section. | | | | | of lower third of | | | | | | esophagus (HCC) | | + +--------+ + + + | CAPILLARY BLOOD | Routin | 05/20/2018 | Malignant neoplasm | Results for this | | GLUCOSE (NO CHG), | e | 12:07 AM | of lower third of | procedure are in the | | POC | | PDT | esophagus (HCC) | results section. | + +--------+ + + + | CARDIOLOGY | | 05/20/2018 | | Results for this | | | | 12:00 AM | | procedure are in the | | | | PDT | | results section. | + +--------+ + + + | X-RAY PORTABLE CHEST | Urgent | 05/19/2018 | Esophageal cancer, | Results for this | | 1 VIEW | | 6:38 AM | stage IIIA (HCC) | procedure are in the | | | | PDT | Malignant neoplasm | results section. | | | | | of lower third of | | | | | | esophagus (HCC) | | + +--------+ + + + | CAPILLARY BLOOD | Routin | 05/19/2018 | Malignant neoplasm | Results for this | | GLUCOSE (NO CHG), | e | 5:34 AM | of lower third of | procedure are in the | | POC | | PDT | esophagus (HCC) | results section. | + +--------+ + + + | RENAL FUNCTION SET | Urgent | 05/19/2018 | Esophageal cancer, | Results for this | | (NA,K,CL,CO2,BUN,CRE | | 2:10 AM | stage IIIA (HCC) | procedure are in the | | AT,GLUC,CA,PHOS,ALB | | PDT | Malignant neoplasm | results section. | | ) | | | of lower third of | | | | | | esophagus (HCC) | | + +--------+ + + + | MAGNESIUM, PLASMA | Urgent | 05/19/2018 | Esophageal cancer, | Results for this | | | | 2:10 AM | stage IIIA (HCC) | procedure are in the | | | | PDT | Malignant neoplasm | results section. | | | | | of lower third of | | | | | | esophagus (HCC) | | + +--------+ + + + | CARDIOLOGY | | 05/19/2018 | | Results for this | | | | 12:00 AM | | procedure are in the | | | | PDT | | results section. | + +--------+ + + + | CAPILLARY BLOOD | Routin | 05/18/2018 | Malignant neoplasm | Results for this | | GLUCOSE (NO CHG), | e | 6:36 PM | of lower third of | procedure are in the | | POC | | PDT | esophagus (HCC) | results section. | + +--------+ + + + | CAPILLARY BLOOD | Routin | 05/18/2018 | Malignant neoplasm | Results for this | | GLUCOSE (NO CHG), | e | 12:07 PM | of lower third of | procedure are in the | | POC | | PDT | esophagus (HCC) | results section. | + +--------+ + + + | CAPILLARY BLOOD | Routin | 05/18/2018 | Malignant neoplasm | Results for this | | GLUCOSE (NO CHG), | e | 6:18 AM | of lower third of | procedure are in the | | POC | | PDT | esophagus (HCC) | results section. | + +--------+ + + + | X-RAY PORTABLE CHEST | Urgent | 05/18/2018 | Esophageal cancer, | Results for this | | 1 VIEW | | 5:39 AM | stage IIIA (HCC) | procedure are in the | | | | PDT | Malignant neoplasm | results section. | | | | | of lower third of | | | | | | esophagus (HCC) | | + +--------+ + + + | CBC (HEMOGRAM) ONLY | Urgent | 05/18/2018 | Esophageal cancer, | Results for this | | | | 2:29 AM | stage IIIA (HCC) | procedure are in the | | | | PDT | Malignant neoplasm | results section. | | | | | of lower third of | | | | | | esophagus (HCC) | | + +--------+ + + + | RENAL FUNCTION SET | Urgent | 05/18/2018 | Esophageal cancer, | Results for this | | (NA,K,CL,CO2,BUN,CRE | | 2:29 AM | stage IIIA (HCC) | procedure are in the | | AT,GLUC,CA,PHOS,ALB | | PDT | Malignant neoplasm | results section. | | ) | | | of lower third of | | | | | | esophagus (HCC) | | + +--------+ + + + | CBC ONLY | Urgent | 05/18/2018 | Esophageal cancer, | Results for this | | | | 2:29 AM | stage IIIA (HCC) | procedure are in the | | | | PDT | Malignant neoplasm | results section. | | | | | of lower third of | | | | | | esophagus (HCC) | | + +--------+ + + + | MAGNESIUM, PLASMA | Urgent | 05/18/2018 | Esophageal cancer, | Results for this | | | | 2:29 AM | stage IIIA (HCC) | procedure are in the | | | | PDT | Malignant neoplasm | results section. | | | | | of lower third of | | | | | | esophagus (HCC) | | + +--------+ + + + | CARDIOLOGY | | 05/18/2018 | | Results for this | | | | 12:00 AM | | procedure are in the | | | | PDT | | results section. | + +--------+ + + + | CARDIOLOGY | | 05/18/2018 | | Results for this | | | | 12:00 AM | | procedure are in the | | | | PDT | | results section. | + +--------+ + + + | PROCEDURE NOTE | Routin | 05/17/2018 | | Results for this | | | e | 8:27 AM | | procedure are in the | | | | PDT | | results section. | + +--------+ + + + | X-RAY PORTABLE CHEST | Urgent | 05/17/2018 | Esophageal cancer, | Results for this | | 1 VIEW | | 5:30 AM | stage IIIA (HCC) | procedure are in the | | | | PDT | Malignant neoplasm | results section. | | | | | of lower third of | | | | | | esophagus (HCC) | | + +--------+ + + + | CBC (HEMOGRAM) ONLY | Urgent | 05/17/2018 | Esophageal cancer, | Results for this | | | | 12:24 AM | stage IIIA (HCC) | procedure are in the | | | | PDT | Malignant neoplasm | results section. | | | | | of lower third of | | | | | | esophagus (HCC) | | + +--------+ + + + | RENAL FUNCTION SET | Urgent | 05/17/2018 | Esophageal cancer, | Results for this | | (NA,K,CL,CO2,BUN,CRE | | 12:24 AM | stage IIIA (HCC) | procedure are in the | | AT,GLUC,CA,PHOS,ALB | | PDT | Malignant neoplasm | results section. | | ) | | | of lower third of | | | | | | esophagus (HCC) | | + +--------+ + + + | CBC ONLY | Urgent | 05/17/2018 | Esophageal cancer, | Results for this | | | | 12:24 AM | stage IIIA (HCC) | procedure are in the | | | | PDT | Malignant neoplasm | results section. | | | | | of lower third of | | | | | | esophagus (HCC) | | + +--------+ + + + | MAGNESIUM, PLASMA | Urgent | 05/17/2018 | Esophageal cancer, | Results for this | | | | 12:24 AM | stage IIIA (HCC) | procedure are in the | | | | PDT | Malignant neoplasm | results section. | | | | | of lower third of | | | | | | esophagus (HCC) | | + +--------+ + + + | CARDIOLOGY | | 05/17/2018 | | Results for this | | | | 12:00 AM | | procedure are in the | | | | PDT | | results section. | + +--------+ + + + | RENAL FUNCTION SET | Urgent | 05/16/2018 | | Results for this | | (NA,K,CL,CO2,BUN,CRE | | 5:56 PM | | procedure are in the | | AT,GLUC,CA,PHOS,ALB | | PDT | | results section. | | ) | | | | | + +--------+ + + + | MAGNESIUM, PLASMA | Urgent | 05/16/2018 | | Results for this | | | | 5:56 PM | | procedure are in the | | | | PDT | | results section. | + +--------+ + + + | PROCEDURE NOTE | Routin | 05/16/2018 | | Results for this | | | e | 1:51 PM | | procedure are in the | | | | PDT | | results section. | + +--------+ + + + | X-RAY PORTABLE CHEST | Urgent | 05/16/2018 | Esophageal cancer, | Results for this | | 1 VIEW | | 6:21 AM | stage IIIA (HCC) | procedure are in the | | | | PDT | Malignant neoplasm | results section. | | | | | of lower third of | | | | | | esophagus (HCC) | | + +--------+ + + + | CBC (HEMOGRAM) ONLY | Urgent | 05/16/2018 | Esophageal cancer, | Results for this | | | | 12:06 AM | stage IIIA (HCC) | procedure are in the | | | | PDT | Malignant neoplasm | results section. | | | | | of lower third of | | | | | | esophagus (HCC) | | + +--------+ + + + | RENAL FUNCTION SET | Urgent | 05/16/2018 | Esophageal cancer, | Results for this | | (NA,K,CL,CO2,BUN,CRE | | 12:06 AM | stage IIIA (HCC) | procedure are in the | | AT,GLUC,CA,PHOS,ALB | | PDT | Malignant neoplasm | results section. | | ) | | | of lower third of | | | | | | esophagus (HCC) | | + +--------+ + + + | CBC ONLY | Urgent | 05/16/2018 | Esophageal cancer, | Results for this | | | | 12:06 AM | stage IIIA (HCC) | procedure are in the | | | | PDT | Malignant neoplasm | results section. | | | | | of lower third of | | | | | | esophagus (HCC) | | + +--------+ + + + | MAGNESIUM, PLASMA | Urgent | 05/16/2018 | Esophageal cancer, | Results for this | | | | 12:06 AM | stage IIIA (HCC) | procedure are in the | | | | PDT | Malignant neoplasm | results section. | | | | | of lower third of | | | | | | esophagus (HCC) | | + +--------+ + + + | X-RAY PORTABLE CHEST | Urgent | 05/15/2018 | Esophageal cancer, | Results for this | | 1 VIEW | | 5:44 AM | stage IIIA (HCC) | procedure are in the | | | | PDT | Malignant neoplasm | results section. | | | | | of lower third of | | | | | | esophagus (HCC) | | + +--------+ + + + | CBC (HEMOGRAM) ONLY | Urgent | 05/15/2018 | Esophageal cancer, | Results for this | | | | 12:49 AM | stage IIIA (HCC) | procedure are in the | | | | PDT | Malignant neoplasm | results section. | | | | | of lower third of | | | | | | esophagus (HCC) | | + +--------+ + + + | RENAL FUNCTION SET | Urgent | 05/15/2018 | Esophageal cancer, | Results for this | | (NA,K,CL,CO2,BUN,CRE | | 12:49 AM | stage IIIA (HCC) | procedure are in the | | AT,GLUC,CA,PHOS,ALB | | PDT | Malignant neoplasm | results section. | | ) | | | of lower third of | | | | | | esophagus (HCC) | | + +--------+ + + + | CBC ONLY | Urgent | 05/15/2018 | Esophageal cancer, | Results for this | | | | 12:49 AM | stage IIIA (HCC) | procedure are in the | | | | PDT | Malignant neoplasm | results section. | | | | | of lower third of | | | | | | esophagus (HCC) | | + +--------+ + + + | MAGNESIUM, PLASMA | Urgent | 05/15/2018 | Esophageal cancer, | Results for this | | | | 12:49 AM | stage IIIA (HCC) | procedure are in the | | | | PDT | Malignant neoplasm | results section. | | | | | of lower third of | | | | | | esophagus (HCC) | | + +--------+ + + + | CARDIOLOGY | | 05/15/2018 | | Results for this | | | | 12:00 AM | | procedure are in the | | | | PDT | | results section. | + +--------+ + + + | PROCEDURE NOTE | Routin | 05/14/2018 | | Results for this | | | e | 6:00 PM | | procedure are in the | | | | PDT | | results section. | + +--------+ + + + | X-RAY PORTABLE CHEST | Urgent | 05/14/2018 | Esophageal cancer, | Results for this | | 1 VIEW | | 5:54 PM | stage IIIA (HCC) | procedure are in the | | | | PDT | Malignant neoplasm | results section. | | | | | of lower third of | | | | | | esophagus (HCC) | | + +--------+ + + + | RAINBOW HOLD TUBE - | Urgent | 05/14/2018 | | | | BLUE TOP | | 5:31 PM | | | | | | PDT | | | + +--------+ + + + | CBC (HEMOGRAM) ONLY | Urgent | 05/14/2018 | Esophageal cancer, | Results for this | | | | 5:31 PM | stage IIIA (HCC) | procedure are in the | | | | PDT | Malignant neoplasm | results section. | | | | | of lower third of | | | | | | esophagus (HCC) | | + +--------+ + + + | CBC ONLY | Urgent | 05/14/2018 | Esophageal cancer, | Results for this | | | | 5:31 PM | stage IIIA (HCC) | procedure are in the | | | | PDT | Malignant neoplasm | results section. | | | | | of lower third of | | | | | | esophagus (HCC) | | + +--------+ + + + | BLOOD GASES, | Urgent | 05/14/2018 | Esophageal cancer, | Results for this | | ARTERIAL - LAB | | 5:31 PM | stage IIIA (HCC) | procedure are in the | | | | PDT | Malignant neoplasm | results section. | | | | | of lower third of | | | | | | esophagus (HCC) | | + +--------+ + + + | CAPILLARY BLOOD | Routin | 05/14/2018 | Malignant neoplasm | Results for this | | GLUCOSE (NO CHG), | e | 5:30 PM | of lower third of | procedure are in the | | POC | | PDT | esophagus (HCC) | results section. | + +--------+ + + + | RENAL FUNCTION SET | Urgent | 05/14/2018 | Esophageal cancer, | Results for this | | (NA,K,CL,CO2,BUN,CRE | | 5:30 PM | stage IIIA (HCC) | procedure are in the | | AT,GLUC,CA,PHOS,ALB | | PDT | Malignant neoplasm | results section. | | ) | | | of lower third of | | | | | | esophagus (HCC) | | + +--------+ + + + | MAGNESIUM, PLASMA | Urgent | 05/14/2018 | Esophageal cancer, | Results for this | | | | 5:30 PM | stage IIIA (HCC) | procedure are in the | | | | PDT | Malignant neoplasm | results section. | | | | | of lower third of | | | | | | esophagus (HCC) | | + +--------+ + + + | PROCEDURE NOTE | Routin | 05/14/2018 | | Results for this | | | e | 5:01 PM | | procedure are in the | | | | PDT | | results section. | + +--------+ + + + | PROCEDURE NOTE | Routin | 05/14/2018 | | Results for this | | | e | 4:51 PM | | procedure are in the | | | | PDT | | results section. | + +--------+ + + + | ABG-FULL ABL, POC | Urgent | 05/14/2018 | Esophageal cancer, | Results for this | | | | 4:35 PM | stage IIIA (HCC) | procedure are in the | | | | PDT | | results section. | + +--------+ + + + | CAPILLARY BLOOD | Routin | 05/14/2018 | Esophageal cancer, | Results for this | | GLUCOSE (NO CHG), | e | 3:16 PM | stage IIIA (HCC) | procedure are in the | | POC | | PDT | | results section. | + +--------+ + + + | PROCEDURE NOTE | Routin | 05/14/2018 | | Results for this | | | e | 2:05 PM | | procedure are in the | | | | PDT | | results section. | + +--------+ + + + | ABG-FULL ABL, POC | Urgent | 05/14/2018 | Esophageal cancer, | Results for this | | | | 1:44 PM | stage IIIA (HCC) | procedure are in the | | | | PDT | | results section. | + +--------+ + + + | PROCEDURE NOTE | Routin | 05/14/2018 | | Results for this | | | e | 11:43 AM | | procedure are in the | | | | PDT | | results section. | + +--------+ + + + | ABG-FULL ABL, POC | Urgent | 05/14/2018 | Esophageal cancer, | Results for this | | | | 11:10 AM | stage IIIA (HCC) | procedure are in the | | | | PDT | | results section. | + +--------+ + + + | SURGICAL PATHOLOGY | Routin | 05/14/2018 | | Results for this | | | e | 9:17 AM | | procedure are in the | | | | PDT | | results section. | + +--------+ + + + | ABG-FULL ABL, POC | Urgent | 05/14/2018 | Esophageal cancer, | Results for this | | | | 8:12 AM | stage IIIA (HCC) | procedure are in the | | | | PDT | | results section. | + +--------+ + + + | MINIMALLY INVASIVE 3 | Electi | 05/14/2018 | ESOPHAGEAL CANCER | | | FIELD ESOPHAGECTOMY | ve | 7:31 AM | | | | (INCLUDES J-TUBE) | Surgic | PDT | | | | | al | | | | + +--------+ + + + +---+--------+ | | | | | Specia | | | l | | | Needs | | | ICU | | | POST-T | | | SICU | | | TEAM | +---+--------+ + +--------+ + + + | CAPILLARY BLOOD | Routin | 05/14/2018 | Esophageal cancer, | Results for this | | GLUCOSE (NO CHG), | e | 6:30 AM | stage IIIA (HCC) | procedure are in the | | POC | | PDT | | results section. | + +--------+ + + + | INTRAPROCEDURE | Routin | 05/14/2018 | | Results for this | | IMAGING | e | 6:08 AM | | procedure are in the | | | | PDT | | results section. | + +--------+ + + + documented in this encounter Results RENAL FUNCTION SET (NA,K,CL,CO2,BUN,CREAT,GLUC,CA,PHOS,ALB ) (05/22/2018 5:49 AM PDT) + + + + + + | Component | Value | Ref Range | Performed | Pathologist | | | | | At | Signature | + + + + + + | GLUCOSE, | 105 (H) | 70 - 99 mg/dL | [facility] | | | PLASMA | | | LABORATORY | | | (LAB) | | | SERVICES, | | | | | | CORE | | + + + + + + | BUN, PLASMA | 22 (H) | 6 - 20 mg/dL | [facility] | | | (LAB) | | | LABORATORY | | | | | | SERVICES, | | | | | | CORE | | + + + + + + | CREATININE | 0.52 (L) | 0.70 - 1.30 | [facility] | | | PLASMA | | mg/dL | LABORATORY | | | (LAB) | | | SERVICES, | | | | | | CORE | | + + + + + + | EGFR | >60 | >60 mL/min | [facility] | | | - | | | LABORATORY | | | [facility] | | | SERVICES, | | | | | | CORE | | + + + + + + | EGFR NON | >60 | >60 mL/min | [facility] | | | -[place] | | | LABORATORY | | | [facility] | | | SERVICES, | | | | | | CORE | | + + + + + + | SODIUM, | 141 | 136 - 145 | [facility] | | | PLASMA | | mmol/L | LABORATORY | | | (LAB) | | | SERVICES, | | | | | | CORE | | + + + + + + | POTASSIUM, | 4.3 | 3.4 - 5.0 | [facility] | | | PLASMA | | mmol/L | LABORATORY | | | (LAB) | | | SERVICES, | | | | | | CORE | | + + + + + + | CHLORIDE, | 108 | 97 - 108 mmol/L | [facility] | | | PLASMA | | | LABORATORY | | | (LAB) | | | SERVICES, | | | | | | CORE | | + + + + + + | TOTAL CO2, | 26 | 21 - 32 mmol/L | [facility] | | | PLASMA | | | LABORATORY | | | (LAB) | | | SERVICES, | | | | | | CORE | | + + + + + + | CALCIUM, | 8.2 (L) | 8.6 - 10.2 | [facility] | [...] + + + + | ALBUMIN, | 2.4 (L) | 3.5 - 4.7 g/dL | [facility] | | | PLASMA | | | LABORATORY | | | (LAB) | | | SERVICES, | | | | | | CORE | | + + + + + + | PHOSPHORUS, | 2.6 | 2.4 - 4.7 mg/dL | [facility] | | | PLASMA | | | LABORATORY | | | (LAB) | | | SERVICES, | | | | | | CORE | | + + + + + + | POTASSIUM | No Hemo | | [facility] | | | CMNT | | | LABORATORY | | | | | | SERVICES, | | | | | | CORE | | + + + + + + | ANION GAP | 7 | 4 - 11 mmol/L | [facility] | | | | | | LABORATORY | | | | | | SERVICES, | | | | | | CORE | | + + + + + + | ANION | 11 [...] using the MDRD equation recommended by the | [facility] | | National Kidney Disease Education Program. Estimated GFR | LABORATORY | | Interpretive Information: <60 mL/min/1.73 sq m | SERVICES, CORE | | Chronic Kidney Disease <15 mL/min/1.73 sq m | | | Kidney Failure Estimated GFR greater that 60 mL/min/1.73 sq m is of | | | limited clinical value. The MDRD equation is not valid in the | | | following situations: - Patients under 18 years of age - Severe | | | malnutrition or obesity - Vegetarian diet - Rapidly changing kidney | | | function - Amputees, paraplegics, or other muscle-wasting diseses | | + + + + + + + + | Performing | Address | City/State/Zipcode | Phone Number | | Organization | | | | + + + + + | [facility] | [address] | [place] [address] | | | SERVICES, CORE | [address] | | | + + + + + MAGNESIUM, PLASMA (05/22/2018 5:49 AM PDT) + +-------+ + + + | Component | Value | Ref Range | Performed | Pathologist | | | | | At | Signature | + +-------+ + + + | MAGNESIUM,P | 2.1 | 1.6 - 2.6 mg/dL | [facility] | | | [facility] | | | LABORATORY | | | | | | SERVICES, | | | | | | CORE | | + +-------+ + + + + + | Specimen | + + | Blood - Blood | | (substance) | + + + + + | Narrative | Performed At | + + + | Reference range change effective 07/10/17. | [facility] | | | LABORATORY | | | SERVICES, CORE | + + + + + + + + | Performing | Address | City/State/Zipcode | Phone Number | | Organization | | | | + + + + + | [facility] | [address] | [place] [address] | | | SERVICES, [facility] | [address] [address] | | | + + + + + X-RAY PORTABLE CHEST 1 VIEW (05/22/2018 4:48 AM PDT) + + | Specimen | + + | | + + + + + | Narrative | Performed At | + + + | EXAM: IL CHEST 1 VIEW HISTORY: s/p 3 field esophagectomy 05/14 | [facility] | | COMPARISON: Yesterday FINDINGS: Right chest tube has been | RADIOLOGY VOICE | | removed. Decreased extensive right chest wall subcutaneous gas. | RECOGNITION 2 | | Patchy bibasilar areas of atelectasis, possibly mild concurrent | | | aspiration, improved. There is no new consolidation. No pulmonary | | | edema. No pneumothorax. Minimal distention of the gastric conduit no | | | longer evident. IMPRESSION: Improved patchy bibasilar | | | atelectasis. No pneumothorax. I have personally reviewed the | | | images and, if necessary, edited the report. I agree with the report | | | as now presented. Final signature: James Palomino MD 05/22/2018 | | | 9:21 AM Preliminary: James Palomino MD Dictation initiated: | | | James Palomino MD 05/22/2018 9:19 AM | | + + + + + | Procedure Note | + + | Service Account, Radiant Res In Interface - 05/22/2018 9:22 AM PDT EXAM: IL CHEST 1 | | VIEW HISTORY: s/p 3 field esophagectomy 05/14 COMPARISON: Yesterday FINDINGS: Right | | chest tube has been removed. Decreased extensive right chest wall subcutaneous gas. | | Patchy bibasilar areas of atelectasis, possibly mild concurrent aspiration, improved. | | There is no new consolidation. No pulmonary edema. No pneumothorax. Minimal distention | | of the gastric conduit no longer evident. IMPRESSION: Improved patchy bibasilar | | atelectasis. No pneumothorax. I have personally reviewed the images and, if necessary, | | edited the report. I agree with the report as now presented. Final signature: James | | MD Candelario 05/22/2018 9:21 AM Preliminary: James Palomino MD Dictation initiated: | | James Palomino MD 05/22/2018 9:19 AM | | | |IMPRESSION: | | | |Improved patchy bibasilar atelectasis. No pneumothorax. | | | |I have personally reviewed the images and, if necessary, edited the report. I agree with th e report as now presented. | | | |Final signature: James Palomino MD 05/22/2018 9:21 AM | |Preliminary: James Palomino MD | |Dictation initiated: James Palomino MD 05/22/2018 9:19 AM | + + + +---------+ + + | Performing | Address | City/State/Zipcode | Phone Number | | Organization | | | | + +---------+ + + | [facility] | | | | | VOICE RECOGNITION 2 | | | | + +---------+ + + PROCEDURE NOTE (05/21/2018 10:12 AM PDT) + + + | Narrative | Performed At | + + + | Chery Cabello PA-C 05/21/2018 10:12 AM Right chest drain | | | removed without complication. Suture tied. Dressing applied. Replace | | | dressing as needed for saturation. Repeat chest x-ray tomorrow | | | morning or sooner if needed. [facility] [address] | | | [address] Mailcode: [id number] [place] [address] | | | [phone] | | + + + X-RAY ESOPHAGRAM (05/21/2018 8:48 AM PDT) + + | Specimen | + + | | + + + + + | Narrative | Performed At | + + + | EXAM: Esophagram with scowman radiograph HISTORY: Assess for | [facility] | | anastomotic leak COMPARISON: None TECHNIQUE: Radiation dose | RADIOLOGY VOICE | | reduction technique was maximized where appropriate using pulsed | RECOGNITION 2 | | fluoroscopy and fluoro-store images. Fluoro Time 126 second(s) | | | FINDINGS: Postsurgical changes identified status post | | | esophagectomy and gastric pull-through. Patient swallowed | | | water-soluble contrast material, without evidence of aspiration, or | | | evidence of leak. This was followed by thin barium contrast material | | | for increased opacification in contrast, which demonstrated the same | | | findings. At the terminal as that of the examination, nonobstructed | | | loops of small bowel are identified, and contrast is noted within | | | proximal loops of duodenum. IMPRESSION: Postsurgical | | | changes status post esophagectomy, and gastric pull-through without | | | evidence of leak I have personally reviewed the images and, if | | | necessary, edited the report. I agree with the report as now | | | presented. Final signature: Armin Kellogg MD | | | 05/21/2018 9:05 AM Preliminary: Armin Kellogg MD | | | Dictation initiated: Armin Kellogg MD 05/21/2018 9:04 AM | | + + + + + | Procedure Note | + + | Service Account, Radiant Res In Interface - 05/21/2018 9:07 AM PDT EXAM: Esophagram | | with scowman radiograph HISTORY: Assess for anastomotic leak COMPARISON: None TECHNIQUE: | | Radiation dose reduction technique was maximized where appropriate using pulsed | | fluoroscopy and fluoro-store images. Fluoro Time 126 second(s) FINDINGS: Postsurgical | | changes identified status post esophagectomy and gastric pull-through. Patient | | swallowed water-soluble contrast material, without evidence of aspiration, or evidence | | of leak. This was followed by thin barium contrast material for increased opacification | | in contrast, which demonstrated the same findings. At the terminal as that of the | | examination, nonobstructed loops of small bowel are identified, and contrast is noted | | within proximal loops of duodenum. IMPRESSION: Postsurgical changes status post | | esophagectomy, and gastric pull-through without evidence of leak I have personally | | reviewed the images and, if necessary, edited the report. I agree with the report as now | | presented. Final signature: Armin Kellogg MD 05/21/2018 9:05 AM Preliminary: | | Armin Kellogg MD Dictation initiated: Armin Kellogg MD 05/21/2018 | | 9:04 AM | | | | | |IMPRESSION: | | | |Postsurgical changes status post esophagectomy, and gastric pull-through without evidence o f leak | | | |I have personally reviewed the images and, if necessary, edited the report. I agree with th e report as now presented. | | | |Final signature: Armin Kellogg MD 05/21/2018 9:05 AM | |Preliminary: Armin Kellogg MD | |Dictation initiated: Armin Kellogg MD 05/21/2018 9:04 AM | + + + +---------+ + + | Performing | Address | City/State/Zipcode | Phone Number | | Organization | | | | + +---------+ + + | [facility] | | | | | VOICE RECOGNITION 2 | | | | + +---------+ + + RENAL FUNCTION SET (NA,K,CL,CO2,BUN,CREAT,GLUC,CA,PHOS,ALB ) (05/21/2018 7:14 AM PDT) + +---------+ + + + | Component | Value | Ref Range | Performed | Pathologist | | | | | At | Signature | + +---------+ + + + | GLUCOSE, | 108 (H) | 70 - 99 mg/dL | [facility] | | | PLASMA | | | LABORATORY | | | (LAB) | | | SERVICES, | | | | | | CORE | | + +---------+ + + + | BUN, PLASMA | 24 (H) | 6 - 20 mg/dL | [facility] | | | (LAB) | | | LABORATORY | | | | | | SERVICES, | | | | | | CORE | | + +---------+ + + + | CREATININE | 0.72 | 0.70 - 1.30 | [facility] | | | PLASMA | | mg/dL | LABORATORY | | | (LAB) | | | SERVICES, | | | | | | CORE | | + +---------+ + + + | EGFR | >60 | >60 mL/min | [facility] | | | - | | | LABORATORY | | | [facility] | | | SERVICES, | | | | | | CORE | | + +---------+ + + + | EGFR NON | >60 | >60 mL/min | [facility] | | | -[facility] | | | LABORATORY | | | [facility] | | | SERVICES, | | | | | | CORE | | + +---------+ + + + | SODIUM, | 142 | 136 - 145 | [facility] | [...] +---------+ + + + | CHLORIDE, | 107 | 97 - 108 mmol/L | [facility] | | | PLASMA | | | LABORATORY | | | (LAB) | | | SERVICES, | | | | | | CORE | | + +---------+ + + + | TOTAL CO2, | 28 | 21 - 32 mmol/L | [facility] | | | PLASMA | | | LABORATORY | | | (LAB) | | | SERVICES, | | | | | | CORE | | + +---------+ + + + | CALCIUM, | 8.1 (L) | 8.6 - 10.2 | [facility] | | | PLASMA | | mg/dL | LABORATORY | | | (LAB) | | | SERVICES, | | | | | | CORE | | + +---------+ + + + | CALCIUM(ALB | 9.5 | 8.6 - 10.2 | [facility] | | | CORRECTED) | | mg/dL | LABORATORY | | | | | | SERVICES, | | | | | | CORE | | + +---------+ + + + | ALBUMIN, | 2.3 (L) | 3.5 - 4.7 g/dL | [facility] | | | PLASMA | | | LABORATORY | | | (LAB) | | | SERVICES, | | | | | | CORE | | + +---------+ + + + | PHOSPHORUS, | 3.7 | 2.4 - 4.7 mg/dL | [facility] | | | PLASMA [...] + + + | ANION GAP | 7 | 4 - 11 mmol/L | [facility] [...] using the MDRD equation recommended by the | [facility] | | National Kidney Disease Education Program. Estimated GFR | LABORATORY | | Interpretive Information: <60 mL/min/1.73 sq m | SERVICES, CORE | | Chronic Kidney Disease <15 mL/min/1.73 sq m | | | Kidney Failure Estimated GFR greater that 60 mL/min/1.73 sq m is of | | | limited clinical value. The MDRD equation is not valid in the | | | following situations: - Patients under 18 years of age - Severe | | | malnutrition or obesity - Vegetarian diet - Rapidly changing kidney | | | function - Amputees, paraplegics, or other muscle-wasting diseses | | + + + + + + + + | Performing | Address | City/State/Zipcode | Phone Number | | Organization | | | | + + + + + | [facility] | [address] | [place] [address] | | | [place], JUST[place] | [address] | | | + + + + + MAGNESIUM, PLASMA (05/21/2018 7:14 AM PDT) + +-------+ + + + | Component | Value | Ref Range | Performed | Pathologist | | | | | At | Signature | + +-------+ + + + | MAGNESIUM,P | 2.3 | 1.6 - 2.6 mg/dL | [facility] | | | LASMA | | | LABORATORY | | | | | | SERVICES, | | | | | | CORE | | + +-------+ + + + + + | Specimen | + + | Blood - Blood | | (substance) | + + + + + | Narrative | Performed At | + + + | Reference range change effective 07/10/17. | [email or web address] | | | LABORATORY | | | [place] | + + + + + + + + | Performing | Address | City/State/Zipcode | Phone Number | | Organization | | | | + + + + + | [facility] | [address] | [place] [address] | | | [place] | [address] | | | + + + + + X-RAY PORTABLE CHEST 1 VIEW (05/21/2018 4:55 AM PDT) + + | Specimen | + + | | + + + + + | Narrative | Performed At | + + + | EXAM: IL CHEST 1 VIEW HISTORY: s/p 3 field esophagectomy 05/14 | [facility] | | COMPARISON: 05/20/2018 FINDINGS: The right chest tube is | RADIOLOGY VOICE | | unchanged in position. There is no significant pneumothorax. There is | RECOGNITION 2 | | again demonstrated extensive subcutaneous soft tissue emphysema at the | | | right lateral chest wall and neck. The cardiomediastinal silhouette | | | is unchanged. Redemonstration of pneumoperitoneum compatible with | | | recent history of surgery. Interval increase in left basilar and | | | retrocardiac subsegmental atelectasis. Unchanged right basilar | | | subsegmental atelectasis. Probable small left pleural effusion. No | | | acute osseous abnormalities. IMPRESSION: Interval increase in | | | left retrocardiac and basilar subsegmental atelectasis. Probable | | | small left pleural effusion. Persistent extensive subcutaneous | | | emphysema at the right chest wall and neck without identification of a | | | significant pneumothorax. I have personally reviewed the images | | | and, if necessary, edited the report. I agree with the report as now | | | presented. Final signature: Carlos A Owens MD 05/21/2018 | | | 8:48 AM Preliminary: Carlos A Owens MD Dictation | | | initiated: Carlos A Owens MD 05/21/2018 8:46 AM | | + + + + + | Procedure Note | + + | Service Account, Radiant Res In Interface - 05/21/2018 8:49 AM PDT EXAM: IL CHEST 1 | | VIEW HISTORY: s/p 3 field esophagectomy 05/14 COMPARISON: 05/20/2018 FINDINGS: The right | | chest tube is unchanged in position. There is no significant pneumothorax. There is | | again demonstrated extensive subcutaneous soft tissue emphysema at the right lateral | | chest wall and neck. The cardiomediastinal silhouette is unchanged. Redemonstration of | | pneumoperitoneum compatible with recent history of surgery. Interval increase in left | | basilar and retrocardiac subsegmental atelectasis. Unchanged right basilar subsegmental | | atelectasis. Probable small left pleural effusion. No acute osseous abnormalities. | | IMPRESSION: Interval increase in left retrocardiac and basilar subsegmental atelectasis. | | Probable small left pleural effusion. Persistent extensive subcutaneous emphysema at | | the right chest wall and neck without identification of a significant pneumothorax. I | | have personally reviewed the images and, if necessary, edited the report. I agree with | | the report as now presented. Final signature: Carlos A Owens MD 05/21/2018 8:48 AM | | Preliminary: Carlos A Owens MD Dictation initiated: Carlos A Owens MD | | 05/21/2018 8:46 AM | |IMPRESSION: | | | |Interval increase in left retrocardiac and basilar subsegmental atelectasis. | | | |Probable small left pleural effusion. | | | |Persistent extensive subcutaneous emphysema at the right chest wall and neck without identi fication of a significant pneumothorax. | | | |I have personally reviewed the images and, if necessary, edited the report. I agree with th e report as now presented. | | | |Final signature: Carlos A Owens MD 05/21/2018 8:48 AM | |Preliminary: Carlos A Owens MD | |Dictation initiated: Carlos A Owens MD 05/21/2018 8:46 AM | + + + +---------+ + + | Performing | Address | City/State/Zipcode | Phone Number | | Organization | | | | + +---------+ + + | [facility] | | | | | VOICE RECOGNITION 2 | | | | + +---------+ + + CARDIOLOGY (05/21/2018 12:00 AM PDT) + + + | Narrative | Performed At | + + + | | | + + + X-RAY PORTABLE CHEST 1 VIEW (05/20/2018 7:37 AM PDT) + + | Specimen | + + | | + + + + + | Narrative | Performed At | + + + | EXAM: IL CHEST 1 VIEW HISTORY: s/p 3 field esophagectomy 05/14 | [facility] | | COMPARISON: None. FINDINGS: Right chest tube is in | RADIOLOGY VOICE | | unchanged position. No pneumothorax is evident. Extensive subcutaneous | RECOGNITION 2 | | emphysema in the right lateral chest wall extending into the neck is | | | unchanged. Pneumoperitoneum is noted, compatible with given history. | | | The cardiomediastinal contour is normal. There is improved bibasilar | | | atelectasis with minimal left basilar atelectasis remaining.. The | | | lungs are otherwise clear. There is no focal consolidation, pleural | | | effusion or pneumothorax. There is no pulmonary edema. The bones are | | | intact. IMPRESSION: 1. Decreased bibasilar atelectasis. | | | 2. Unchanged subcutaneous emphysema in right chest wall. 3. | | | Unchanged pneumoperitoneum (compatible with given history of | | | esophagectomy). I have personally reviewed the images and, if | | | necessary, edited the report. I agree with the report as now | | | presented. Final signature: Kathy Whaley MD 05/20/2018 | | | 9:19 AM Preliminary: Kathy Whaley MD Dictation | | | initiated: Kathy Whaley MD 05/20/2018 9:16 AM | | + + + + + | Procedure Note | + + | Service Account, Radiant Res In Interface - 05/20/2018 9:20 AM PDT EXAM: IL CHEST 1 | | VIEW HISTORY: s/p 3 field esophagectomy 05/14 COMPARISON: None. FINDINGS: Right chest | | tube is in unchanged position. No pneumothorax is evident. Extensive subcutaneous | | emphysema in the right lateral chest wall extending into the neck is unchanged. | | Pneumoperitoneum is noted, compatible with given history. The cardiomediastinal contour | | is normal. There is improved bibasilar atelectasis with minimal left basilar atelectasis | | remaining.. The lungs are otherwise clear. There is no focal consolidation, pleural | | effusion or pneumothorax. There is no pulmonary edema. The bones are intact. IMPRESSION: | | 1. Decreased bibasilar atelectasis. 2. Unchanged subcutaneous emphysema in right chest | | wall. 3. Unchanged pneumoperitoneum (compatible with given history of esophagectomy). I | | have personally reviewed the images and, if necessary, edited the report. I agree with | | the report as now presented. Final signature: Kathy Whaley MD 05/20/2018 9:19 AM | | Preliminary: Kathy Whaley MD Dictation initiated: Kathy Whaley MD | | 05/20/2018 9:16 AM | | | |1. Decreased bibasilar atelectasis. | | | |2. Unchanged subcutaneous emphysema in right chest wall. | | | |3. Unchanged pneumoperitoneum (compatible with given history of esophagectomy). | | | |I have personally reviewed the images and, if necessary, edited the report. I agree with th e report as now presented. | | | |Final signature: Kathy Whaley MD 05/20/2018 9:19 AM | |Preliminary: Kathy Whaley MD | |Dictation initiated: Kathy Whaley MD 05/20/2018 9:16 AM | + + + +---------+ + + | Performing | Address | City/State/Zipcode | Phone Number | | Organization | | | | + +---------+ + + | [facility] | | | | | VOICE RECOGNITION 2 | | | | + +---------+ + + RENAL FUNCTION SET (NA,K,CL,CO2,BUN,CREAT,GLUC,CA,PHOS,ALB ) (05/20/2018 5:28 AM PDT) + + + + + + | Component | Value | Ref Range | Performed | Pathologist | | | | | At | Signature | + + + + + + | GLUCOSE, | 117 (H) | 70 - 99 mg/dL | [facility] | | | PLASMA | | | LABORATORY | | | (LAB) | | | SERVICES, | | | | | | CORE | | + + + + + + | BUN, PLASMA | 14 | 6 - 20 mg/dL | [facility] | | | (LAB) | | | LABORATORY | | | | | | SERVICES, | | | | | | CORE | | + + + + + + | CREATININE | 0.62 (L) | 0.70 - 1.30 | [facility] | | | PLASMA | | mg/dL | LABORATORY | | | (LAB) | | | SERVICES, | | | | | | CORE | | + + + + + + | EGFR | >60 | >60 mL/min | [facility] | | | - | | | LABORATORY | | | [facility] | | | SERVICES, | | | | | | CORE | | + + + + + + | EGFR NON | >60 | >60 mL/min | [facility] | | | -[facility] | | | LABORATORY | | | [facility] | | | SERVICES, | | | | | | CORE | | + + + + + + | SODIUM, | 141 | 136 - 145 | [facility] | | | PLASMA | | mmol/L | LABORATORY | | | (LAB) | | | SERVICES, | | | | | | CORE | | + + + + + + | POTASSIUM, | 4.1 [...] + + + | TOTAL CO2, | 26 | 21 - 32 mmol/L | [facility] | | | PLASMA | | | LABORATORY | | | (LAB) | | | SERVICES, | | | | | | CORE | | + + + + + + | CALCIUM, | 8.4 (L) | 8.6 - 10.2 | [facility] | [...] + + + + | ALBUMIN, | 2.5 (L) | 3.5 - 4.7 g/dL | [facility] | | | PLASMA | | | LABORATORY | | | (LAB) | | | SERVICES, | | | | | | CORE | | + + + + + + | PHOSPHORUS, | 2.2 (L) | 2.4 - 4.7 mg/dL | [facility] | | | PLASMA | | | LABORATORY | | | (LAB) | | | SERVICES, | | | | | | CORE | | + + + + + + | POTASSIUM | No Hemo | | [facility] | | | CMNT | | | LABORATORY | | | | | | SERVICES, | | | | | | CORE | | + + + + + + | ANION GAP | 8 | 4 - 11 mmol/L | [facility] | | | | | | LABORATORY | | | | | | SERVICES, | | | | | | CORE | | + + + + + + | ANION | 11 [...] using the MDRD equation recommended by the | [facility] | | National Kidney Disease Education Program. Estimated GFR | LABORATORY | | Interpretive Information: <60 mL/min/1.73 sq m | SERVICES, CORE | | Chronic Kidney Disease <15 mL/min/1.73 sq m | | | Kidney Failure Estimated GFR greater that 60 mL/min/1.73 sq m is of | | | limited clinical value. The MDRD equation is not valid in the | | | following situations: - Patients under 18 years of age - Severe | | | malnutrition or obesity - Vegetarian diet - Rapidly changing kidney | | | function - Amputees, paraplegics, or other muscle-wasting diseses | | + + + + + + + + | Performing | Address | City/State/[facility] | Phone Number | | Organization | | | | + + + + + | [facility] | [address] | [place] [address] | | | [place], CORE | [address] | | | + + + + + MAGNESIUM, PLASMA (05/20/2018 5:28 AM PDT) + +-------+ + + + | Component | Value | Ref Range | Performed | Pathologist | | | | | At | Signature | + +-------+ + + + | MAGNESIUM,P | 2.0 | 1.6 - 2.6 mg/dL | [facility] | | | LASMA | | | LABORATORY | | | | | | SERVICES, | | | | | | CORE | | + +-------+ + + + + + | Specimen | + + | Blood - Blood | | (substance) | + + + + + | Narrative | Performed At | + + + | Reference range change effective 07/10/17. | [facility] | | | LABORATORY | | | TIMO, JUSTIN | + + + + + + + + | Performing | Address | City/State/Zipcode | Phone Number | | Organization | | | | + + + + + | [facility] | [address] | [place] [address] | | | [place], [place] | [address] | | | + + + + + CAPILLARY BLOOD GLUCOSE (NO CHG), POC (05/20/2018 12:07 AM PDT) + +---------+ + + + | Component | Value | Ref Range | Performed | Pathologist | | | | | At | Signature | + +---------+ + + + | BLOOD | 133 (H) | 70 - 99 mg/dL | [facility] | | | GLUCOSE, | | | [facility] | | | POC | | | [facility] | | | | | | OF CARE | | | | | | TESTS | | + +---------+ + + + + + | Specimen | + + | | + + + + + + + | Performing | Address | City/State/Zipcode | Phone Number | | Organization | | | | + + + + + | [facility] | [address] | [place], [place] | | | [facility] | [address] | [phone] | | | TESTS | | | | + + + + + CARDIOLOGY (05/20/2018 12:00 AM PDT) + + + | Narrative | Performed At | + + + | | | + + + X-RAY PORTABLE CHEST 1 VIEW (05/19/2018 6:38 AM PDT) + + | Specimen | + + | | + + + + + | Narrative | Performed At | + + + | EXAM: IL CHEST 1 VIEW HISTORY: s/p 3 field esophagectomy 05/14 | [facility] | | COMPARISON: May 18, 2018 FINDINGS: The right | RADIOLOGY VOICE | | thoracostomy tube is unchanged. There is no profiled pneumothorax. | RECOGNITION 2 | | Extensive subcutaneous gas is noted. Trace pneumoperitoneum remains. | | | The lungs are hypoexpanded, accentuating the cardiac silhouette. | | | Retrocardiac opacification likely reflects atelectasis. A small | | | effusion is improved or redistributed. IMPRESSION: No profiled | | | right pneumothorax. Subcutaneous emphysema is relatively unchanged. | | | Pulmonary hypoexpansion and multifocal atelectasis. Improved or | | | redistributed left effusion. I have personally reviewed the | | | images and, if necessary, edited the report. I agree with the report | | | as now presented. Final signature: Kaveh Gaspar MD 05/19/2018 | | | 11:09 AM Preliminary: Kaveh Gaspar MD Dictation initiated: | | | Kaveh Gaspar MD 05/19/2018 11:06 AM | | + + + + + | Procedure Note | + + | Service Account, Radiant Res In Interface - 05/19/2018 11:10 AM PDT EXAM: IL CHEST 1 | | VIEW HISTORY: s/p 3 field esophagectomy 05/14 COMPARISON: May 18, 2018 FINDINGS: The | | right thoracostomy tube is unchanged. There is no profiled pneumothorax. Extensive | | subcutaneous gas is noted. Trace pneumoperitoneum remains. The lungs are hypoexpanded, | | accentuating the cardiac silhouette. Retrocardiac opacification likely reflects | | atelectasis. A small effusion is improved or redistributed. IMPRESSION: No profiled | | right pneumothorax. Subcutaneous emphysema is relatively unchanged. Pulmonary | | hypoexpansion and multifocal atelectasis. Improved or redistributed left effusion. I | | have personally reviewed the images and, if necessary, edited the report. I agree with | | the report as now presented. Final signature: Kaveh Gaspar MD 05/19/2018 11:09 AM | | Preliminary: Kaveh Gaspar MD Dictation initiated: Kaveh Gaspar MD 05/19/2018 11:06 | | AM | |IMPRESSION: | | | |No profiled right pneumothorax. Subcutaneous emphysema is relatively unchanged. | | | |Pulmonary hypoexpansion and multifocal atelectasis. | | | |Improved or redistributed left effusion. | | | |I have personally reviewed the images and, if necessary, edited the report. I agree with e report as now presented. | | | |Final signature: Kaveh Gaspar MD 05/19/2018 11:09 AM | |Preliminary: Kaveh Gaspar MD | |Dictation initiated: Kaveh Gaspar MD 05/19/2018 11:06 AM | + + + +---------+ + + | Performing | Address | City/State/Zipcode | Phone Number | | Organization | | | | + +---------+ + + | [facility] | | | | | VOICE RECOGNITION 2 | | | | + +---------+ + + CAPILLARY BLOOD GLUCOSE (NO CHG), POC (05/19/2018 5:34 AM PDT) + +---------+ + + + | Component | Value | Ref Range | Performed | Pathologist | | | | | At | Signature | + +---------+ + + + | BLOOD | 129 (H) | 70 - 99 mg/dL | [facility] - | | | GLUCOSE, | | | [facility] | | | POC | | | [facility] | | | | | | OF CARE | | | | | | TESTS | | + +---------+ + + + + + | Specimen | + + | | + + + + + + + | Performing | Address | City/State/Zipcode | Phone Number | | Organization | | | | + + + + + | [facility] | [address] | [place], [place] | | | [facility] | [address] | [phone] | | | TESTS | | | | + + + + + RENAL FUNCTION SET (NA,K,CL,CO2,BUN,CREAT,GLUC,CA,PHOS,ALB ) (05/19/2018 2:10 AM PDT) + + + + + + | Component | Value | Ref Range | Performed | Pathologist | | | | | At | Signature | + + + + + + | GLUCOSE, | 118 (H) | 70 - 99 mg/dL | [facility] | | | PLASMA | | | LABORATORY | | | (LAB) | | | SERVICES, | | | | | | CORE | | + + + + + + | BUN, PLASMA | 16 | 6 - 20 mg/dL | [facility] | | | (LAB) | | | LABORATORY | | | | | | SERVICES, | | | | | | CORE | | + + + + + + | CREATININE | 0.50 (L) | 0.70 - 1.30 | [facility] | | | PLASMA | | mg/dL | LABORATORY | | | (LAB) | | | SERVICES, | | | | | | CORE | | + + + + + + | EGFR | >60 | >60 mL/min | [facility] | | | - | | | LABORATORY | | | PERUVIAN | | | SERVICES, | | | | | | CORE | | + + + + + + | EGFR NON | >60 | >60 mL/min | [facility] | | | -[facility] | | | LABORATORY | | | RICAN | | | SERVICES, | | | | | | CORE | | + + + + + + | SODIUM, | 142 | 136 - 145 | [facility] | | | PLASMA | | mmol/L | LABORATORY | | | (LAB) | | | SERVICES, | | | | | | CORE | | + + + + + + | POTASSIUM, | 3.2 (L) | 3.4 - 5.0 | [facility] | [...] + + + + | CALCIUM, | 8.0 (L) | 8.6 - 10.2 | [facility] | | | PLASMA | | mg/dL | LABORATORY | | | (LAB) | | | SERVICES, | | | | | | CORE | | + + + + + + | CALCIUM(ALB | 9.3 | 8.6 - 10.2 | [facility] | | | CORRECTED) | | mg/dL | LABORATORY | | | | | | SERVICES, | | | | | | CORE | | + + + + + + | ALBUMIN, | 2.4 (L) | 3.5 - 4.7 g/dL | [facility] | | | PLASMA | | | LABORATORY | | | (LAB) | | | SERVICES, | | | | | | CORE | | + + + + + + | PHOSPHORUS, | 2.5 | 2.4 - 4.7 mg/dL | [facility] | | | PLASMA | | | LABORATORY | | | (LAB) | | | SERVICES, | | | | | | CORE | | + + + + + + | POTASSIUM | No Hemo | | [facility] | | | CMNT | | | LABORATORY | | | | | | SERVICES, | | | | | | CORE | | + + + + + + | ANION GAP | 8 | 4 - 11 mmol/L | [facility] | | | | | | LABORATORY | | | | | | SERVICES, | | | | | | CORE | | + + + + + + | ANION | 12 (H) | 4 - 11 mmol/L | [facility] [...] using the MDRD equation recommended by the | [facility] | | National Kidney Disease Education Program. Estimated GFR | LABORATORY | | Interpretive Information: <60 mL/min/1.73 sq m | SERVICES, CORE | | Chronic Kidney Disease <15 mL/min/1.73 sq m | | | Kidney Failure Estimated GFR greater that 60 mL/min/1.73 sq m is of | | | limited clinical value. The MDRD equation is not valid in the | | | following situations: - Patients under 18 years of age - Severe | | | malnutrition or obesity - Vegetarian diet - Rapidly changing kidney | | | function - Amputees, paraplegics, or other muscle-wasting diseses | | + + + + + + + + | Performing | Address | City/State/Zipcode | Phone Number | | Organization | | | | + + + + + | [facility] | [address] | [place] [address] | | | TIMO, JUSTIN | [address] | | | + + + + + MAGNESIUM, PLASMA (05/19/2018 2:10 AM PDT) + +-------+ + + + | Component | Value | Ref Range | Performed | Pathologist | | | | | At | Signature | + +-------+ + + + | MAGNESIUM,P | 1.9 | 1.6 - 2.6 mg/dL | [facility] | | | LASMA | | | LABORATORY | | | | | | SERVICES, | | | | | | CORE | | + +-------+ + + + + + | Specimen | + + | Blood - Blood | | (substance) | + + + + + | Narrative | Performed At | + + + | Reference range change effective 07/10/17. | [facility] | | | LABORATORY | | | TIMO, JUSTIN | + + + + + + + + | Performing | Address | City/State/Zipcode | Phone Number | | Organization | | | | + + + + + | [facility] | [address] | [place] [address] | | | TIMO, JUSTIN | [address] | | | + + + + + CARDIOLOGY (05/19/2018 12:00 AM PDT) + + + | Narrative | Performed At | + + + | | | + + + CAPILLARY BLOOD GLUCOSE (NO CHG), POC (05/18/2018 6:36 PM PDT) + +---------+ + + + | Component | Value | Ref Range | Performed | Pathologist | | | | | At | Signature | + +---------+ + + + | BLOOD | 136 (H) | 70 - 99 mg/dL | [facility] | | | GLUCOSE, | | | [facility] | | | POC | | | [facility] | | | | | | OF CARE | | | | | | TESTS | | + +---------+ + + + + + | Specimen | + + | | + + + + + + + | Performing | Address | City/State/Zipcode | Phone Number | | Organization | | | | + + + + + | [facility] | [address] | [place], [place] | | | [facility] | [address] | [address] | | | TESTS | | | | + + + + + CAPILLARY BLOOD GLUCOSE (NO CHG), POC (05/18/2018 12:07 PM PDT) + +---------+ + + + | Component | Value | Ref Range | Performed | Pathologist | | | | | At | Signature | + +---------+ + + + | BLOOD | 148 (H) | 70 - 99 mg/dL | [facility] - | | | GLUCOSE, | | | [facility] | | | POC | | | [facility] | | | | | | OF CARE | | | | | | TESTS | | + +---------+ + + + + + | Specimen | + + | | + + + + + + + | Performing | Address | City/State/[facility] | Phone Number | | Organization | | | | + + + + + | [facility] | [address] | [place], [place] | | | MARISELA M[facility] OF [facility] | [facility] | [address] | | | TESTS | | | | + + + + + CAPILLARY BLOOD GLUCOSE (NO CHG), POC (05/18/2018 6:18 AM PDT) + +---------+ + + + | Component | Value | Ref Range | Performed | Pathologist | | | | | At | Signature | + +---------+ + + + | BLOOD | 139 (H) | 70 - 99 mg/dL | [facility] - | | | GLUCOSE, | | | [facility] | | | POC | | | [place] | | | | | | OF CARE | | | | | | TESTS | | + +---------+ + + + + + | Specimen | + + | | + + + + + + + | Performing | Address | City/State/Zipcode | Phone Number | | Organization | | | | + + + + + | [facility] | [address] | [place], [place] | | | MARISELA MATT OF [facility] | [address] | [address] | | | TESTS | | | | + + + + + X-RAY PORTABLE CHEST 1 VIEW (05/18/2018 5:39 AM PDT) + + | Specimen | + + | | + + + + + | Narrative | Performed At | + + + | EXAM: IL CHEST 1 VIEW HISTORY: s/p 3 field esophagectomy 05/14 | [facility] | | COMPARISON: May 17, 2018 FINDINGS: The transesophageal | RADIOLOGY VOICE | | sump tube, right IJ catheter, left mediastinal drain, and left | RECOGNITION 2 | | thoracostomy tube have been removed. The right-sided thoracostomy tube | | | is unchanged in position. There is no pneumothorax. Right lateral | | | chest and supraclavicular subcutaneous emphysema is unchanged. | | | Pulmonary hypoexpansion has increased with increased perihilar | | | atelectasis and retrocardiac opacification. There is a small layering | | | left effusion, which is increased in size. Pneumoperitoneum has | | | redistributed. IMPRESSION: Increased pulmonary hypoexpansion | | | and associated atelectasis. Increased small left effusion. No | | | profiled pneumothorax. I have personally reviewed the images and, | | | if necessary, edited the report. I agree with the report as now | | | presented. Final signature: Kaveh Gaspar MD 05/18/2018 9:39 AM | | | Preliminary: Kaveh Gaspar MD Dictation initiated: Kaveh Gaspar MD 05/18/2018 9:36 AM | | + + + + + | Procedure Note | + + | Service Account, Radiant Res In Interface - 05/18/2018 9:40 AM PDT EXAM: IL CHEST 1 | | VIEW HISTORY: s/p 3 field esophagectomy 05/14 COMPARISON: May 17, 2018 FINDINGS: The | | transesophageal sump tube, right IJ catheter, left mediastinal drain, and left | | thoracostomy tube have been removed. The right-sided thoracostomy tube is unchanged in | | position. There is no pneumothorax. Right lateral chest and supraclavicular subcutaneous | | emphysema is unchanged. Pulmonary hypoexpansion has increased with increased perihilar | | atelectasis and retrocardiac opacification. There is a small layering left effusion, | | which is increased in size. Pneumoperitoneum has redistributed. IMPRESSION: Increased | | pulmonary hypoexpansion and associated atelectasis. Increased small left effusion. No | | profiled pneumothorax. I have personally reviewed the images and, if necessary, edited | | the report. I agree with the report as now presented. Final signature: Kaveh Gaspar MD | | 05/18/2018 9:39 AM Preliminary: Kaveh Gaspar MD Dictation initiated: Kaveh Gaspar | | 05/18/2018 9:36 AM | |IMPRESSION: | | | |Increased pulmonary hypoexpansion and associated atelectasis. | | | |Increased small left effusion. | | | |No profiled pneumothorax. | | | |I have personally reviewed the images and, if necessary, edited the report. I agree with th e report as now presented. | | | |Final signature: Kaveh Gaspar MD 05/18/2018 9:39 AM | |Preliminary: Kaveh Gaspar MD | |Dictation initiated: Kaveh Gaspar MD 05/18/2018 9:36 AM | + + + +---------+ + + | Performing | Address | City/State/Zipcode | Phone Number | | Organization | | | | + +---------+ + + | [facility] | | | | | VOICE RECOGNITION 2 | | | | + +---------+ + + CBC (HEMOGRAM) ONLY (05/18/2018 2:29 AM PDT) + + + + + + | Component | Value | Ref Range | Performed | Pathologist | | | | | At | Signature | + + + + + + | WHITE CELL | 8.29 | 3.50 - 10.80 | [facility] | | | COUNT | | K/cu mm | LABORATORY | | | | | | SERVICES, | | | | | | CORE | | + + + + + + | RED CELL | 2.62 (L) | 4.50 - 6.00 | [facility] | | | COUNT | | M/cu mm | LABORATORY | | | | | | SERVICES, | | | | | | CORE | | + + + + + + | HEMOGLOBIN | 8.9 (L) | 13.5 - 17.5 | [facility] | | | | | g/dL | LABORATORY | | | | | | SERVICES, | | | | | | CORE | | + + + + + + | HEMATOCRIT | 25.7 (L) | 41.0 - 53.0 % | [facility] | | | | | | LABORATORY | | | | | | SERVICES, | | | | | | CORE | | + + + + + + | MCV | 98.1 | 80.0 - 100.0 fL | [facility] | | | | | | LABORATORY | | | | | | SERVICES, | | | | | | CORE | | + + + + + + | MCHC | 34.6 | 32.0 - 36.0 | [facility] | | | | | g/dL | LABORATORY | | | | | | SERVICES, | | | | | | CORE | | + + + + + + | RDW SD | 47.6 (H) | 35.1 - 46.3 fL | [facility] | | | | | | LABORATORY | | | | | | SERVICES, | | | | | | CORE | | + + + + + + | PLATELET | 154 | 150 - 400 K/cu | [facility] | | | COUNT | | mm | LABORATORY | | | | | | SERVICES, | | | | | | CORE | | + + + + + + | MPV | 9.8 | 9.7 - 12.3 fL | [facility] [...] Performed At | + + + | New reference ranges for MCV, MCHC, PLT, IG% and IG# effective | [facility] | | 04/04/2018 | LABORATORY | | | [place] | + + + + + + + + | Performing | Address | City/State/Zipcode | Phone Number | | Organization | | | | + + + + + | [facility] | [address] | [place] [address] | | | JUSTIN [place] | [address] | | | + + + + + RENAL FUNCTION SET (NA,K,CL,CO2,BUN,CREAT,GLUC,CA,PHOS,ALB ) (05/18/2018 2:29 AM PDT) + + + + + + | Component | Value | Ref Range | Performed | Pathologist | | | | | At | Signature | + + + + + + | GLUCOSE, | 122 (H) | 70 - 99 mg/dL | [facility] | | | PLASMA | | | LABORATORY | | | (LAB) | | | SERVICES, | | | | | | CORE | | + + + + + + | BUN, PLASMA | 17 | 6 - 20 mg/dL | [facility] | | | (LAB) | | | LABORATORY | | | | | | SERVICES, | | | | | | CORE | | + + + + + + | CREATININE | 0.55 (L) | 0.70 - 1.30 | [facility] | | | PLASMA | | mg/dL | LABORATORY | | | (LAB) | | | SERVICES, | | | | | | CORE | | + + + + + + | EGFR | >60 | >60 mL/min | [facility] | | | - | | | LABORATORY | | | [facility] | | | SERVICES, | | | | | | CORE | | + + + + + + | EGFR NON | >60 | >60 mL/min | [facility] | | | -[facility] | | | LABORATORY | | | RICAN | | | SERVICES, | | | | | | CORE | | + + + + + + | SODIUM, | 141 | 136 - 145 | [facility] | | | PLASMA | | mmol/L | LABORATORY | | | (LAB) | | | SERVICES, | | | | | | CORE | | + + + + + + | POTASSIUM, | 3.3 (L) | 3.4 - 5.0 | [facility] | | | PLASMA | | mmol/L | LABORATORY | | | (LAB) | | | SERVICES, | | | | | | CORE | | + + + + + + | CHLORIDE, | 106 | 97 - 108 mmol/L | [facility] [...] + + + + | CALCIUM, | 8.1 (L) | 8.6 - 10.2 | [facility] | [...] + + + + | ALBUMIN, | 2.3 (L) | 3.5 - 4.7 g/dL | [facility] | | | PLASMA | | | LABORATORY | | | (LAB) | | | SERVICES, | | | | | | CORE | | + + + + + + | PHOSPHORUS, | 1.9 (L) | 2.4 - 4.7 mg/dL | [facility] | | | PLASMA | | | LABORATORY | | | (LAB) | | | SERVICES, | | | | | | CORE | | + + + + + + | POTASSIUM | No Hemo | | [facility] | | | CMNT | | | LABORATORY | | | | | | SERVICES, | | | | | | CORE | | + + + + + + | ANION GAP | 8 | 4 - 11 mmol/L | [facility] | | | | | | LABORATORY | | | | | | SERVICES, | | | | | | CORE | | + + + + + + | ANION | 12 (H) | 4 - 11 mmol/L | [facility] [...] using the MDRD equation recommended by the | [facility] | | National Kidney Disease Education Program. Estimated GFR | LABORATORY | | Interpretive Information: <60 mL/min/1.73 sq m | SERVICES, CORE | | Chronic Kidney Disease <15 mL/min/1.73 sq m | | | Kidney Failure Estimated GFR greater that 60 mL/min/1.73 sq m is of | | | limited clinical value. The MDRD equation is not valid in the | | | following situations: - Patients under 18 years of age - Severe | | | malnutrition or obesity - Vegetarian diet - Rapidly changing kidney | | | function - Amputees, paraplegics, or other muscle-wasting diseses | | + + + + + + + + | Performing | Address | City/State/Zipcode | Phone Number | | Organization | | | | + + + + + | [facility] | [address] | [place] [address] | | | SERVICES, CORE | [address] | | | + + + + + MAGNESIUM, PLASMA (05/18/2018 2:29 AM PDT) + +-------+ + + + | Component | Value | Ref Range | Performed | Pathologist | | | | | At | Signature | + +-------+ + + + | MAGNESIUM,P | 1.8 | 1.6 - 2.6 mg/dL | [facility] | | | LASMA | | | LABORATORY | | | | | | SERVICES, | | | | | | CORE | | + +-------+ + + + + + | Specimen | + + | Blood - Blood | | (substance) | + + + + + | Narrative | Performed At | + + + | Reference range change effective 07/10/17. | [facility] | | | LABORATORY | | | SERVICES, CORE | + + + + + + + + | Performing | Address | City/State/Zipcode | Phone Number | | Organization | | | | + + + + + | [facility] | [address] | [place] [address] | | | SERVICES, CORE | [address] | | | + + + + + CARDIOLOGY (05/18/2018 12:00 AM PDT) + + + | Narrative | Performed At | + + + | | | + + + CARDIOLOGY (05/18/2018 12:00 AM PDT) + + + | Narrative | Performed At | + + + | | | + + + PROCEDURE NOTE (05/17/2018 8:27 AM PDT) + + + | Narrative | Performed At | + + + | Chery Cabello PA-C 05/17/2018 8:27 AM Left chest drain | | | removed without complication. Suture tied. Dressing applied. 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 COMPARISON: 05/16/2018 FINDINGS: The | RADIOLOGY VOICE | | enteric tube is unchanged in position which projects over the trachea | RECOGNITION 2 | | and right bronchus (per discussion with Dr. Brian Villafuerte, enteric tube | | | was placed in the [place] and has continued high gastric output). | | | Biapical large bore pleural chest tubes, left Tristen drain, and right | | | internal jugular central venous catheter are all unchanged in | | | position. An epidural catheter projects over the mid hemithorax. | | | Unchanged left perihilar and bibasilar atelectasis, left greater than | | | right. Mildly decreased trace right pneumothorax with adjacent soft | | | tissue gas along the right lateral chest wall. No left pneumothorax. | | | Resolution of left pleural effusion. The cardiomediastinal contour is | | | normal. Pneumoperitoneum is noted, redistributed from prior exams. | | | IMPRESSION: Unchanged left perihilar and bibasilar atelectasis, | | | left greater than right. Near complete resolution of trace right | | | pneumothorax. Pneumoperitoneum, likely redistributed given recent | | | surgery. Correlate with abdominal symptoms. I have personally | | | reviewed the images and, if necessary, edited the report. I agree with | | | the report as now presented. Final signature: Valentino Torres | | | MD Padmini 05/17/2018 2:17 PM Preliminary: Bia Alexandre MD | | | Dictation initiated: Bia Alexandre MD 05/17/2018 8:12 AM | | + + + + + | Procedure Note | + + | Service Account, Radiant Res In Interface - 05/17/2018 2:18 PM PDT EXAM: IL CHEST 1 | | VIEW HISTORY: Esophageal adenocarcinoma status post resection. COMPARISON: 05/16/2018 | | FINDINGS: The enteric tube is unchanged in position which projects over the trachea and | | right bronchus (per discussion with Dr. Brian Villafuerte, enteric tube was placed in the [place] | | and has continued high gastric output). Biapical large bore pleural chest tubes, left | | Tristen drain, and right internal jugular central venous catheter are all unchanged in | | position. An epidural catheter projects over the mid hemithorax. Unchanged left | | perihilar and bibasilar atelectasis, left greater than right. Mildly decreased trace | | right pneumothorax with adjacent soft tissue gas along the right lateral chest wall. No | | left pneumothorax. Resolution of left pleural effusion. The cardiomediastinal contour is | | normal. Pneumoperitoneum is noted, redistributed from prior exams. IMPRESSION: | | Unchanged left perihilar and bibasilar atelectasis, left greater than right. Near | | complete resolution of trace right pneumothorax. Pneumoperitoneum, likely redistributed | | given recent surgery. Correlate with abdominal symptoms. I have personally reviewed the | | images and, if necessary, edited the report. I agree with the report as now presented. | | Final signature: Valentino Washington MD 05/17/2018 2:17 PM Preliminary: Bia Leger | | MD Bettie Dictation initiated: Bia Alexandre MD 05/17/2018 8:12 AM | | | |Near complete resolution of trace right pneumothorax. | | | |Pneumoperitoneum, likely redistributed given recent surgery. Correlate with abdominal sympt oms. | | | |I have personally reviewed the images and, if necessary, edited the report. I agree with th e report as now presented. | | | |Final signature: Valentino Washington MD 05/17/2018 2:17 PM | |Preliminary: Bia Alexandre MD | |Dictation initiated: Bia Alexandre MD 05/17/2018 8:12 AM | + + + +---------+ + + | Performing | Address | City/State/Zipcode | Phone Number | | Organization | | | | + +---------+ + + | [facility] | | | | | VOICE RECOGNITION 2 | | | | + +---------+ + + CBC (HEMOGRAM) ONLY (05/17/2018 12:24 AM PDT) + + + + + + | Component | Value | Ref Range | Performed | Pathologist | | | | | At | Signature | + + + + + + | WHITE CELL | 8.65 | 3.50 - 10.80 | [facility] | | | COUNT | | K/cu mm | LABORATORY | | | | | | SERVICES, | | | | | | CORE | | + + + + + + | RED CELL | 2.53 (L) | 4.50 - 6.00 | [facility] | | | COUNT | | M/cu mm | LABORATORY | | | | | | SERVICES, | | | | | | CORE | | + + + + + + | HEMOGLOBIN | 8.6 (L) | 13.5 - 17.5 | [facility] | | | | | g/dL | LABORATORY | | | | | | SERVICES, | | | | | | CORE | | + + + + + + | HEMATOCRIT | 25.5 (L) | 41.0 - 53.0 % | [facility] | | | | | | LABORATORY | | | | | | SERVICES, | | | | | | CORE | | + + + + + + | MCV | 100.8 (H) | 80.0 - 100.0 fL | [facility] | | | | | | LABORATORY | | | | | | SERVICES, | | | | | | CORE | | + + + + + + | MCHC | 33.7 | 32.0 - 36.0 | [facility] | | | | | g/dL | LABORATORY | | | | | | SERVICES, | | | | | | CORE | | + + + + + + | RDW SD | 50.5 (H) | 35.1 - 46.3 fL | [facility] | | | | | | LABORATORY | | | | | | SERVICES, | | | | | | CORE | | + + + + + + | PLATELET | 133 (L) | 150 - 400 K/cu | [facility] | | | COUNT | | mm | LABORATORY | | | | | | SERVICES, | | | | | | CORE | | + + + + + + | MPV | 9.5 (L) | 9.7 - 12.3 fL | [...] Performed At | + + + | New reference ranges for MCV, MCHC, PLT, IG% and IG# effective | [facility] | | 04/04/2018 | LABORATORY | | | [address] | + + + + + + + + | Performing | Address | City/State/Zipcode | Phone Number | | Organization | | | | + + + + + | [facility] | [address] | [place] [address] | | | SERVICESJUSTIN | [address] | | | + + + + + RENAL FUNCTION SET (NA,K,CL,CO2,BUN,CREAT,GLUC,CA,PHOS,ALB ) (05/17/2018 12:24 AM PDT) + + + + + + | Component | Value | Ref Range | Performed | Pathologist | | | | | At | Signature | + + + + + + | GLUCOSE, | 95 | 70 - 99 mg/dL | [facility] | | | PLASMA | | | LABORATORY | | | (LAB) | | | SERVICES, | | | | | | CORE | | + + + + + + | BUN, PLASMA | 17 | 6 - 20 mg/dL | [facility] | | | (LAB) | | | LABORATORY | | | | | | SERVICES, | | | | | | CORE | | + + + + + + | CREATININE | 0.67 (L) | 0.70 - 1.30 | [facility] | | | PLASMA | | mg/dL | LABORATORY | | | (LAB) | | | SERVICES, | | | | | | CORE | | + + + + + + | EGFR | >60 | >60 mL/min | [facility] | | | - | | | LABORATORY | | | [facility] | | | SERVICES, | | | | | | CORE | | + + + + + + | EGFR NON | >60 | >60 mL/min | [facility] | | | -[facility] | | | LABORATORY | | | [facility] | | | SERVICES, | | | | | | CORE | | + + + + + + | SODIUM, | 143 | 136 - 145 | [facility] | | | PLASMA | | mmol/L | LABORATORY | | | (LAB) | | | SERVICES, | | | | | | CORE | | + + + + + + | POTASSIUM, | 4.0 | 3.4 - 5.0 | [facility] | | | PLASMA | | mmol/L | LABORATORY | | | (LAB) | | | SERVICES, | | | | | | CORE | | + + + + + + | CHLORIDE, | 108 | 97 - 108 mmol/L | [facility] | | | PLASMA | | | LABORATORY | | | (LAB) | | | SERVICES, | | | | | | CORE | | + + + + + + | TOTAL CO2, | 30 | 21 - 32 mmol/L | [facility] | | | PLASMA | | | LABORATORY | | | (LAB) | | | SERVICES, | | | | | | CORE | | + + + + + + | CALCIUM, | 8.2 (L) | 8.6 - 10.2 | [facility] | [...] + + + + | ALBUMIN, | 2.2 (L) | 3.5 - 4.7 g/dL | [facility] | | | PLASMA | | | LABORATORY | | | (LAB) | | | SERVICES, | | | | | | CORE | | + + + + + + | PHOSPHORUS, | 2.3 (L) | 2.4 - 4.7 mg/dL | [facility] | | | PLASMA | | | LABORATORY | | | (LAB) | | | SERVICES, | | | | | | CORE | | + + + + + + | POTASSIUM | No Hemo | | [facility] | | | CMNT | | | LABORATORY | | | | | | SERVICES, | | | | | | CORE | | + + + + + + | ANION GAP | 5 | 4 - 11 mmol/L | [facility] | | | | | | LABORATORY | | | | | | SERVICES, | | | | | | CORE | | + + + + + + | ANION | 9 | 4 - 11 mmol/L | [facility] [...] using the MDRD equation recommended by the | [facility] | | National Kidney Disease Education Program. Estimated GFR | LABORATORY | | Interpretive Information: <60 mL/min/1.73 sq m | SERVICES, CORE | | Chronic Kidney Disease <15 mL/min/1.73 sq m | | | Kidney Failure Estimated GFR greater that 60 mL/min/1.73 sq m is of | | | limited clinical value. The MDRD equation is not valid in the | | | following situations: - Patients under 18 years of age - Severe | | | malnutrition or obesity - Vegetarian diet - Rapidly changing kidney | | | function - Amputees, paraplegics, or other muscle-wasting diseses | | + + + + + + + + | Performing | Address | City/State/Zipcode | Phone Number | | Organization | | | | + + + + + | [facility] | [address] | [place] [address] | | | SERVICES, JUSTIN | [address] | | | + + + + + MAGNESIUM, PLASMA (05/17/2018 12:24 AM PDT) + +-------+ + + + | Component | Value | Ref Range | Performed | Pathologist | | | | | At | Signature | + +-------+ + + + | MAGNESIUM,P | 1.9 | 1.6 - 2.6 mg/dL | [facility] | | | LASMA | | | LABORATORY | | | | | | SERVICES, | | | | | | CORE | | + +-------+ + + + + + | Specimen | + + | Blood - Blood | | (substance) | + + + + + | Narrative | Performed At | + + + | Reference range change effective 07/10/17. | [facility] | | | LABORATORY | | | SERVICES, CORE | + + + + + + + + | Performing | Address | City/State/Zipcode | Phone Number | | Organization | | | | + + + + + | [facility] | [address] | [place] [address] | | | SERVICES, CORE | [address] | | | + + + + + CARDIOLOGY (05/17/2018 12:00 AM PDT) + + + | Narrative | Performed At | + + + | | | + + + MAGNESIUM, PLASMA (05/16/2018 5:56 PM PDT) + +-------+ + + + | Component | Value | Ref Range | Performed | Pathologist | | | | | At | Signature | + +-------+ + + + | MAGNESIUM,P | 1.9 | 1.6 - 2.6 mg/dL | [facility] | | | [facility] | | | LABORATORY | | | | | | SERVICES, | | | | | | CORE | | + +-------+ + + + + + | Specimen | + + | Blood - Blood | | (substance) | + + + + + | Narrative | Performed At | + + + | Reference range change effective 07/10/17. | [facility] | | | LABORATORY | | | [address] | + + + + + + + + | Performing | Address | City/State/Zipcode | Phone Number | | Organization | | | | + + + + + | [facility] | [address] | [place] [address] | | | [address] | [address] | | | + + + + + RENAL FUNCTION SET (NA,K,CL,CO2,BUN,CREAT,GLUC,CA,PHOS,ALB ) (05/16/2018 5:56 PM PDT) + + + + + + | Component | Value | Ref Range | Performed | Pathologist | | | | | At | Signature | + + + + + + | GLUCOSE, | 90 | 70 - 99 mg/dL | [facility] | | | [facility] | | | LABORATORY | | | (LAB) | | | SERVICES, | | | | | | CORE | | + + + + + + | BUN, PLASMA | 16 | 6 - 20 mg/dL | [facility] | | | (LAB) | | | LABORATORY | | | | | | SERVICES, | | | | | | CORE | | + + + + + + | CREATININE | 0.67 (L) | 0.70 - 1.30 | [facility] | | | PLASMA | | mg/dL | LABORATORY | | | (LAB) | | | SERVICES, | | | | | | CORE | | + + + + + + | EGFR | >60 | >60 mL/min | [facility] | | | - | | | LABORATORY | | | [facility] | | | SERVICES, | | | | | | CORE | | + + + + + + | EGFR NON | >60 | >60 mL/min | [facility] | | | -[facility] | | | LABORATORY | | | RICAN | | | SERVICES, | | | | | | CORE | | + + + + + + | SODIUM, | 142 | 136 - 145 | [facility] | | | PLASMA | | mmol/L | LABORATORY | | | (LAB) | | | SERVICES, | | | | | | CORE | | + + + + + + | POTASSIUM, | 3.7 | 3.4 - 5.0 | [facility] | [...] + + | TOTAL CO2, | 29 | 21 - 32 mmol/L | [facility] | | | PLASMA | | | LABORATORY | | | (LAB) | | | SERVICES, | | | | | | CORE | | + + + + + + | CALCIUM, | 8.1 (L) | 8.6 - 10.2 | [facility] | [...] + + + + | ALBUMIN, | 2.1 (L) | 3.5 - 4.7 g/dL | [facility] | | | PLASMA | | | LABORATORY | | | (LAB) | | | SERVICES, | | | | | | CORE | | + + + + + + | PHOSPHORUS, | 2.6 | 2.4 - 4.7 mg/dL | [facility] | | | PLASMA | | | LABORATORY | | | (LAB) | | | SERVICES, | | | | | | CORE | | + + + + + + | POTASSIUM | No Hemo | | [facility] | | | CMNT | | | LABORATORY | | | | | | SERVICES, | | | | | | CORE | | + + + + + + | ANION GAP | 6 | 4 - 11 mmol/L | [facility] | | | | | | LABORATORY | | | | | | SERVICES, | | | | | | CORE | | + + + + + + | ANION | 10 | 4 - 11 mmol/L [...] using the MDRD equation recommended by the | [facility] | | National Kidney Disease Education Program. Estimated GFR | LABORATORY | | Interpretive Information: <60 mL/min/1.73 sq m | SERVICES, CORE | | Chronic Kidney Disease <15 mL/min/1.73 sq m | | | Kidney Failure Estimated GFR greater that 60 mL/min/1.73 sq m is of | | | limited clinical value. The MDRD equation is not valid in the | | | following situations: - Patients under 18 years of age - Severe | | | malnutrition or obesity - Vegetarian diet - Rapidly changing kidney | | | function - Amputees, paraplegics, or other muscle-wasting diseses | | + + + + + + + + | Performing | Address | City/State/Zipcode | Phone Number | | Organization | | | | + + + + + | [facility] | [address] | [place] [address] | | | SERVICES, CORE | [address] | | | + + + + + PROCEDURE NOTE (05/16/2018 1:51 PM PDT)X-RAY PORTABLE CHEST 1 VIEW (05/16/2018 6:21 AM PD T) + + | Specimen | + + | | + + + + + | Narrative | Performed At | + + + | EXAM: IL CHEST 1 VIEW HISTORY: Esophageal adenocarcinoma status | [facility] | | post resection. COMPARISON: 05/15/2018 FINDINGS: The | RADIOLOGY VOICE | | endotracheal tube has been removed. Enteric tube is unchanged, with | RECOGNITION 2 | | the tip projecting in the mid thorax.. The right internal jugular | | | central venous catheter, Tristen drain, and biapical large bore pleural | | | chest tubes are unchanged in position. Interval increase in | | | bilateral perihilar and bibasilar atelectasis, left greater than | | | right. A small left pleural effusion is present. There is no right | | | pleural effusion. Trace right pneumothorax is present with increased | | | soft tissue gas along the right lateral chest wall. No left | | | pneumothorax. The cardiomediastinal contour is unchanged. | | | IMPRESSION: Interval extubation with decreased lung volumes. Other | | | support equipment is unchanged. Small left pleural effusion and | | | trace right pneumothorax. I have personally reviewed the images | | | and, if necessary, edited the report. I agree with the report as now | | | presented. Final signature: Valentino Washington MD 05/16/2018 | | | 11:23 AM Preliminary: Bia Alexandre MD Dictation | | | initiated: Bia Alexandre MD 05/16/2018 9:33 AM | | + + + + + | Procedure Note | + + | Service Account, Radiant Res In Interface - 05/16/2018 11:25 AM PDT EXAM: IL CHEST 1 | | VIEW HISTORY: Esophageal adenocarcinoma status post resection. COMPARISON: 05/15/2018 | | FINDINGS: The endotracheal tube has been removed. Enteric tube is unchanged, with the | | tip projecting in the mid thorax.. The right internal jugular central venous catheter, | | Tristen drain, and biapical large bore pleural chest tubes are unchanged in position. | | Interval increase in bilateral perihilar and bibasilar atelectasis, left greater than | | right. A small left pleural effusion is present. There is no right pleural effusion. | | Trace right pneumothorax is present with increased soft tissue gas along the right | | lateral chest wall. No left pneumothorax. The cardiomediastinal contour is unchanged. | | IMPRESSION: Interval extubation with decreased lung volumes. Other support equipment is | | unchanged. Small left pleural effusion and trace right pneumothorax. I have personally | | reviewed the images and, if necessary, edited the report. I agree with the report as now | | presented. Final signature: Valentino Washington MD 05/16/2018 11:23 AM Preliminary: | | Bia Alexandre MD Dictation initiated: Bia Alexandre MD 05/16/2018 9:33 AM | | | |Interval extubation with decreased lung volumes. Other support equipment is unchanged. | | | |Small left pleural effusion and trace right pneumothorax. | | | |I have personally reviewed the images and, if necessary, edited the report. I agree with e report as now presented. | | | |Final signature: Valentino Washington MD 05/16/2018 11:23 AM | |Preliminary: Bia Alexandre MD | |Dictation initiated: Bia Alexandre MD 05/16/2018 9:33 AM | + + + +---------+ + + | Performing | Address | City/State/Zipcode | Phone Number | | Organization | | | | + +---------+ + + | [facility] | | | | | VOICE RECOGNITION 2 | | | | + +---------+ + + CBC (HEMOGRAM) ONLY (05/16/2018 12:06 AM PDT) + + + + + + | Component | Value | Ref Range | Performed | Pathologist | | | | | At | Signature | + + + + + + | WHITE CELL | 11.30 (H) | 3.50 - 10.80 | [facility] | | | COUNT | | K/cu mm | LABORATORY | | | | | | SERVICES, | | | | | | CORE | | + + + + + + | RED CELL | 2.77 (L) | 4.50 - 6.00 | [facility] | | | COUNT | | M/cu mm | LABORATORY | | | | | | SERVICES, | | | | | | CORE | | + + + + + + | HEMOGLOBIN | 9.5 (L) | 13.5 - 17.5 | [facility] | | | | | g/dL | LABORATORY | | | | | | SERVICES, | | | | | | CORE | | + + + + + + | HEMATOCRIT | 27.9 (L) | 41.0 - 53.0 % | [facility] | | | | | | LABORATORY | | | | | | SERVICES, | | | | | | CORE | | + + + + + + | MCV | 100.7 (H) | 80.0 - 100.0 fL | [facility] | | | | | | LABORATORY | | | | | | SERVICES, | | | | | | CORE | | + + + + + + | MCHC | 34.1 | 32.0 - 36.0 | [facility] | | | | | g/dL | LABORATORY | | | | | | SERVICES, | | | | | | CORE | | + + + + + + | RDW SD | 50.9 (H) | 35.1 - 46.3 fL | [facility] | | | | | | LABORATORY | | | | | | SERVICES, | | | | | | CORE | | + + + + + + | PLATELET | 143 (L) | 150 - 400 K/cu | [...] Performed At | + + + | New reference ranges for MCV, MCHC, PLT, IG% and IG# effective | [facility] | | 04/04/2018 | LABORATORY | | | SERVICES, CORE | + + + + + + + + | Performing | Address | City/State/Zipcode | Phone Number | | Organization | | | | + + + + + | [facility] | [address] | [place] [address] | | | SERVICES, CORE | [address] | | | + + + + + MAGNESIUM, PLASMA (05/16/2018 12:06 AM PDT) + +-------+ + + + | Component | Value | Ref Range | Performed | Pathologist | | | | | At | Signature | + +-------+ + + + | MAGNESIUM,P | 2.0 | 1.6 - 2.6 mg/dL | [facility] | | | LASMA | | | LABORATORY | | | | | | SERVICES, | | | | | | CORE | | + +-------+ + + + + + | Specimen | + + | Blood - Blood | | (substance) | + + + + + | Narrative | Performed At | + + + | Reference range change effective 07/10/17. | [facility] | | | LABORATORY | | | SERVICES, CORE | + + + + + + + + | Performing | Address | City/State/Zipcode | Phone Number | | Organization | | | | + + + + + | [facility] | [address] | [place] [address] | | | SERVICES, CORE | [address] | | | + + + + + RENAL FUNCTION SET (NA,K,CL,CO2,BUN,CREAT,GLUC,CA,PHOS,ALB ) (05/16/2018 12:06 AM PDT) + +---------+ + + + | Component | Value | Ref Range | Performed | Pathologist | | | | | At | Signature | + +---------+ + + + | GLUCOSE, | 107 (H) | 70 - 99 mg/dL | [facility] | | | PLASMA | | | LABORATORY | | | (LAB) | | | SERVICES, | | | | | | CORE | | + +---------+ + + + | BUN, PLASMA | 16 | 6 - 20 mg/dL | [facility] | | | (LAB) | | | LABORATORY | | | | | | SERVICES, | | | | | | CORE | | + +---------+ + + + | CREATININE | 0.74 | 0.70 - 1.30 | [facility] | | | PLASMA | | mg/dL | LABORATORY | | | (LAB) | | | SERVICES, | | | | | | CORE | | + +---------+ + + + | EGFR | >60 | >60 mL/min | [facility] | | | - | | | LABORATORY | | | [facility] | | | SERVICES, | | | | | | CORE | | + +---------+ + + + | EGFR NON | >60 | >60 mL/min | [facility] | | | -[facility] | | | LABORATORY | | | RICAN | | | SERVICES, | | | | | | CORE | | + +---------+ + + + | SODIUM, | 142 | 136 - 145 | [facility] | | | PLASMA | | mmol/L | LABORATORY | | | (LAB) | | | SERVICES, | | | | | | CORE | | + +---------+ + + + | POTASSIUM, | 4.0 | 3.4 - 5.0 | [facility] | | | PLASMA | | mmol/L | LABORATORY | | | (LAB) | | | SERVICES, | | | | | | CORE | | + +---------+ + + + | CHLORIDE, | 109 (H) | 97 - 108 mmol/L | [facility] | | | PLASMA | | | LABORATORY | | | (LAB) | | | SERVICES, | | | | | | CORE | | + +---------+ + + + | TOTAL CO2, | 29 | 21 - 32 mmol/L | [facility] | | | PLASMA | | | LABORATORY | | | (LAB) | | | SERVICES, | | | | | | CORE | | + +---------+ + + + | CALCIUM, | 8.0 (L) | 8.6 - 10.2 | [facility] | | | PLASMA | | mg/dL | LABORATORY | | | (LAB) | | | SERVICES, | | | | | | CORE | | + +---------+ + + + | CALCIUM(ALB | 9.4 | 8.6 - 10.2 | [facility] | | | CORRECTED) | | mg/dL | LABORATORY | | | | | | SERVICES, | | | | | | CORE | | + +---------+ + + + | ALBUMIN, | 2.3 (L) | 3.5 - 4.7 g/dL | [facility] | | | PLASMA | | | LABORATORY | | | (LAB) | | | SERVICES, | | | | | | CORE | | + +---------+ + + + | PHOSPHORUS, | 4.2 | 2.4 - 4.7 mg/dL | [facility] | | | PLASMA [...] + + + | ANION GAP | 4 | 4 - 11 mmol/L | [facility] | | | | | | LABORATORY | | | | | | SERVICES, | | | | | | CORE | | + +---------+ + + + | ANION | 8 | 4 - 11 mmol/L | [facility] [...] using the MDRD equation recommended by the | [facility] | | National Kidney Disease Education Program. Estimated GFR | LABORATORY | | Interpretive Information: <60 mL/min/1.73 sq m | [facility] | | Chronic Kidney Disease <15 mL/min/1.73 sq m | | | Kidney Failure Estimated GFR greater that 60 mL/min/1.73 sq m is of | | | limited clinical value. The MDRD equation is not valid in the | | | following situations: - Patients under 18 years of age - Severe | | | malnutrition or obesity - Vegetarian diet - Rapidly changing kidney | | | function - Amputees, paraplegics, or other muscle-wasting diseses | | + + + + + + + + | Performing | Address | City/State/Zipcode | Phone Number | | Organization | | | | + + + + + | [facility] | [address] | [place] [address] | | | [facility] | [address] | | | + + + + + X-RAY PORTABLE CHEST 1 VIEW (05/15/2018 5:44 AM PDT) + + | Specimen | + + | | + + + + + | Narrative | Performed At | + + + | EXAM: IL CHEST 1 VIEW HISTORY: 67-year-old male with esophageal | [facility] | | adenocarcinoma, status post resection. Evaluate support equipment. | RADIOLOGY VOICE | | COMPARISON: CT chest/abdomen/pelvis 03/22/2018 FINDINGS: | RECOGNITION 2 | | The endotracheal tube, enteric tube, right internal jugular central | | | venous catheter, bilateral large bore chest tubes, and mediastinal | | | Tristen drain are all unchanged in position. Surgical clips overlie the | | | mediastinum and upper abdomen. Improved mild left basilar | | | atelectasis is present. The lungs are otherwise clear without focal | | | consolidation or edema. There is no pleural effusion. Near complete | | | resolution of small right pneumothorax with presence of soft tissue | | | gas along the right lateral chest wall. The cardiomediastinal contour | | | is normal. The bones are intact. IMPRESSION: Improved mild | | | left basilar atelectasis. No new consolidation. Near-complete | | | resolution of small right pneumothorax.. I have personally | | | reviewed the images and, if necessary, edited the report. I agree with | | | the report as now presented. Final signature: James Palomino MD | | | 05/15/2018 10:10 AM Preliminary: Bia Alexandre MD | | | Dictation initiated: Bia Alexandre MD 05/15/2018 8:42 AM | | + + + + + | Procedure Note | + + | Service Account, Radiant Res In Interface - 05/15/2018 10:11 AM PDT EXAM: IL CHEST 1 | | VIEW HISTORY: 67-year-old male with esophageal adenocarcinoma, status post resection. | | Evaluate support equipment. COMPARISON: CT chest/abdomen/pelvis 03/22/2018 FINDINGS: | | The endotracheal tube, enteric tube, right internal jugular central venous catheter, | | bilateral large bore chest tubes, and mediastinal Tristen drain are all unchanged in | | position. Surgical clips overlie the mediastinum and upper abdomen. Improved mild left | | basilar atelectasis is present. The lungs are otherwise clear without focal | | consolidation or edema. There is no pleural effusion. Near complete resolution of small | | right pneumothorax with presence of soft tissue gas along the right lateral chest wall. | | The cardiomediastinal contour is normal. The bones are intact. IMPRESSION: Improved mild | | left basilar atelectasis. No new consolidation. Near-complete resolution of small right | | pneumothorax.. I have personally reviewed the images and, if necessary, edited the | | report. I agree with the report as now presented. Final signature: James Palomino MD | | 05/15/2018 10:10 AM Preliminary: Bia Alexandre MD Dictation initiated: Bia Leger | | MD Bettie 05/15/2018 8:42 AM | |Improved mild left basilar atelectasis. No new consolidation. | | | |Near-complete resolution of small right pneumothorax.. | | | |I have personally reviewed the images and, if necessary, edited the report. I agree with th e report as now presented. | | | |Final signature: James Palomino MD 05/15/2018 10:10 AM | |Preliminary: Bia Alexandre MD | |Dictation initiated: Bia Alexandre MD 05/15/2018 8:42 AM | + + + +---------+ + + | Performing | Address | City/State/Zipcode | Phone Number | | Organization | | | | + +---------+ + + | [facility] | | | | | VOICE RECOGNITION 2 | | | | + +---------+ + + CBC (HEMOGRAM) ONLY (05/15/2018 12:49 AM PDT) + + + + + + | Component | Value | Ref Range | Performed | Pathologist | | | | | At | Signature | + + + + + + | WHITE CELL | 6.42 | 3.50 - 10.80 | [facility] | | | COUNT | | K/cu mm | LABORATORY | | | | | | SERVICES, | | | | | | CORE | | + + + + + + | RED CELL | 2.80 (L) | 4.50 - 6.00 | [facility] | | | COUNT | | M/cu mm | LABORATORY | | | | | | SERVICES, | | | | | | CORE | | + + + + + + | HEMOGLOBIN | 9.6 (L) | 13.5 - 17.5 | [facility] | | | | | g/dL | LABORATORY | | | | | | SERVICES, | | | | | | CORE | | + + + + + + | HEMATOCRIT | 27.2 (L) | 41.0 - 53.0 % | [facility] | | | | | | LABORATORY | | | | | | SERVICES, | | | | | | CORE | | + + + + + + | MCV | 97.1 | 80.0 - 100.0 fL | [facility] | | | | | | LABORATORY | | | | | | SERVICES, | | | | | | CORE | | + + + + + + | MCHC | 35.3 | 32.0 - 36.0 | [facility] | | | | | g/dL | LABORATORY | | | | | | SERVICES, | | | | | | CORE | | + + + + + + | RDW SD | 48.4 (H) | 35.1 - 46.3 fL | [facility] | | | | | | LABORATORY | | | | | | SERVICES, | | | | | | CORE | | + + + + + + | PLATELET | 126 (L) | 150 - 400 K/cu | [facility] | | | COUNT | | mm | LABORATORY | | | | | | SERVICES, | | | | | | CORE | | + + + + + + | MPV | 9.0 (L) | 9.7 - 12.3 [...] Performed At | + + + | New reference ranges for MCV, MCHC, PLT, IG% and IG# effective | [facility] | | 04/04/2018 | LABORATORY | | | SERVICES, CORE | + + + + + + + + | Performing | Address | City/State/Zipcode | Phone Number | | Organization | | | | + + + + + | [facility] | [address] | [place] [address] | | | SERVICES, CORE | [address] | | | + + + + + MAGNESIUM, PLASMA (05/15/2018 12:49 AM PDT) + +-------+ + + + | Component | Value | Ref Range | Performed | Pathologist | | | | | At | Signature | + +-------+ + + + | MAGNESIUM,P | 2.0 | 1.6 - 2.6 mg/dL | [facility] | | | LASMA | | | LABORATORY | | | | | | SERVICES, | | | | | | CORE | | + +-------+ + + + + + | Specimen | + + | Blood - Blood | | (substance) | + + + + + | Narrative | Performed At | + + + | Reference range change effective 07/10/17. | [facility] | | | LABORATORY | | | SERVICES, CORE | + + + + + + + + | Performing | Address | City/State/Zipcode | Phone Number | | Organization | | | | + + + + + | [facility] | [address] | [place] [address] | | | SERVICES, CORE | [address] | | | + + + + + RENAL FUNCTION SET (NA,K,CL,CO2,BUN,CREAT,GLUC,CA,PHOS,ALB ) (05/15/2018 12:49 AM PDT) + + + + + + | Component | Value | Ref Range | Performed | Pathologist | | | | | At | Signature | + + + + + + | GLUCOSE, | 127 (H) | 70 - 99 mg/dL | [facility] | | | PLASMA | | | LABORATORY | | | (LAB) | | | SERVICES, | | | | | | CORE | | + + + + + + | BUN, PLASMA | 15 | 6 - 20 mg/dL | [facility] | | | (LAB) | | | LABORATORY | | | | | | SERVICES, | | | | | | CORE | | + + + + + + | CREATININE | 0.64 (L) | 0.70 - 1.30 | [facility] | | | PLASMA | | mg/dL | LABORATORY | | | (LAB) | | | SERVICES, | | | | | | CORE | | + + + + + + | EGFR | >60 | >60 mL/min | [facility] | | | - | | | LABORATORY | | | [facility] | | | SERVICES, | | | | | | CORE | | + + + + + + | EGFR NON | >60 | >60 mL/min | [facility] | | | -[facility] | | | LABORATORY | | | [facility] | | | SERVICES, | | | | | | CORE | | + + + + + + | SODIUM, | 145 | 136 - 145 | [facility] | [...] + + + + | CHLORIDE, | 112 (H) | 97 - 108 mmol/L | [facility] | | | PLASMA | | | LABORATORY | | | (LAB) | | | SERVICES, | | | | | | CORE | | + + + + + + | TOTAL CO2, | 26 | 21 - 32 mmol/L | [facility] | | | PLASMA | | | LABORATORY | | | (LAB) | | | SERVICES, | | | | | | CORE | | + + + + + + | CALCIUM, | 8.4 (L) | 8.6 - 10.2 | [facility] | | | PLASMA | | mg/dL | LABORATORY | | | (LAB) | | | SERVICES, | | | | | | CORE | | + + + + + + | CALCIUM(ALB | 9.7 | 8.6 - 10.2 | [facility] | | | CORRECTED) | | mg/dL | LABORATORY | | | | | | SERVICES, | | | | | | CORE | | + + + + + + | ALBUMIN, | 2.4 (L) | 3.5 - 4.7 g/dL | [facility] | | | PLASMA | | | LABORATORY | | | (LAB) | | | SERVICES, | | | | | | CORE | | + + + + + + | PHOSPHORUS, | 2.8 | 2.4 - 4.7 mg/dL | [facility] | | | PLASMA | | | LABORATORY | | | (LAB) | | | SERVICES, | | | | | | CORE | | + + + + + + | POTASSIUM | No Hemo | | [facility] | | | CMNT | | | LABORATORY | | | | | | SERVICES, | | | | | | CORE | | + + + + + + | ANION GAP | 7 | 4 - 11 mmol/L | [facility] | | | | | | LABORATORY | | | | | | SERVICES, | | | | | | CORE | | + + + + + + | ANION | 11 [...] using the MDRD equation recommended by the | [facility] | | National Kidney Disease Education Program. Estimated GFR | LABORATORY | | Interpretive Information: <60 mL/min/1.73 sq m | SERVICES, CORE | | Chronic Kidney Disease <15 mL/min/1.73 sq m | | | Kidney Failure Estimated GFR greater that 60 mL/min/1.73 sq m is of | | | limited clinical value. The MDRD equation is not valid in the | | | following situations: - Patients under 18 years of age - Severe | | | malnutrition or obesity - Vegetarian diet - Rapidly changing kidney | | | function - Amputees, paraplegics, or other muscle-wasting diseses | | + + + + + + + + | Performing | Address | City/State/Zipcode | Phone Number | | Organization | | | | + + + + + | [facility] | [address] | [place] [address] | | | [facility] | [address] | | | + + + + + CARDIOLOGY (05/15/2018 12:00 AM PDT) + + + | Narrative | Performed At | + + + | | | + + + PROCEDURE NOTE (05/14/2018 6:00 PM PDT) + + + | Narrative | Performed At | + + + | Darin Zaragoza MD 05/15/2018 12:34 PM [facility] Department of | | | Surgery Operative Report Author: Darin Zaragoza MD Attending | | | Physician: Juvenal Vicente MD 05/14/2018 PATIENT INFORMATION | | | Patient Name: Jacob Iverson Date of | | | : 1950 Date of Surgery: 05/14/2018 Attending Surgeon: | | | Dr Juvenal Vicente Manager Supply Surgeon: Darin Zaragoza MD R2 | | | Anesthesia type: General Preoperative Diagnosis: Distal | | | esophageal adenocarcinoma Postoperative Diagnosis: Same | | | Procedure Performed: Neck dissection, esophagectomy Cervical | | | esophagogastric anastomosis after esophagectomy Indications: | | | Jacob Iverson is a 74M who was diagnosed with esophageal cancer after | | | presenting late 2016 with dysphagia, melena, and weight loss; EUS at | | | that time defined 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 Completed neoadjuvant chemoRT | | | with subsequent staging laparoscopy confirming that the tumor did | | | not extend distally into the lesser curve. Restaging PET with | | | appearance of good response with no disease progression. PARQ held | | | regarding the risks and benefits of a 3field esophagectomy and Con | | | wishes to proceed. Findings: Please see separate dictations | | | for abdominal, thoracic portions. No aberrant neck anatomy, no | | | significant bleeding. Proximal margin negative on frozen. Neck | | | anastomosis without leak during methylene blue test. Estimated | | | Blood Loss: 30cc (neck portion) Fluids: See anaesthesia records | | | Specimens: Esophagus, proximal margin Drains: CHELLE in the neck behind | | | the anastomosis Complications: None apparent Procedure in | | | Detail: After proper identification of the patient was performed, | | | Mr Iverson was transported from the pre-surgery area to the operating | | | room. He first underwent thoracic esophageal mobilization by the | | | thoracic team, to be dictated separately. At the end of the | | | thoracic portion of the case, the patient was rotated to the supine | | | position with split legs and arms tucked. The neck was carefully | | | extended with an ax roll for better cervical exposure. The neck, | | | chest, and abdomen were prepped into the field and draped in the | | | usual sterile fashion. After conducting a second pause the | | | abdominal team proceeded with their part of the operation; please | | | see separate dictation. After a majority of the abdominal | | | dissection was done, we turned out attention to the neck. After | | | infiltration with local anaesthetic a transverse cervical incision | | | stretching from just to the right of the trachea over to the | | | external jugular on the left side (with the medial aspect of the | | | sternocleidomastoid at about the mid portion of the incision), about | | | 2 finger widths above the clavicle. We came through the skin and | | | platysma and then we raised flaps superiorly and interiorly (down to | | | the clavicle). The sternocleidomastoid retracted laterally. We | | | were able to locate the carotid sheath without any great difficulty. | | | The omohyoid was divided, and the sternohyoid and then the | | | sternothyroid were transected low as well to allow better | | | visualization. We were able to identify the left lobe of the | | | thyroid. The middle thyroid vessels were then taken taken with a | | | tie. The left thyroid lobe was rotated medially to allow us to do | | | blunt dissection in the tracheoesophageal groove. The recurrent | | | laryngeal nerve was never visualized but any electricity was avoided | | | near the tracheoesophageal groove. We then came into the | | | tracheoesophageal groove, gently and bluntly dissecting the | | | investing fascia around the esophagus and encircled it with an | | | umbilical tape. We were then able to free it up distally to meet | | | up with the dissection performed on the chest. Next using gentle | | | retraction we brought up the esophagus, the resected portion of the | | | stomach and the attached gastric conduit into the neck. We had | | | excellent length at this point and the conduit appeared viable and | | | healthy. We came across the esophagus and handed it off. On the | | | back table the specimin was opened. There was a wide margin | | | though some suspicion of active tumor. We took the proximal margin | | | of the esophagus and sent it off for frozen section analysis and it | | | showed no evidence of malignancy. We then imbricated the right | | | sided staple line of the conduit using interrupted 2-0 silks. The | | | suture was then placed in the anterior wall of the conduit allowing | | | us to bring it anteriorly from the neck and we performed a | | | transverse gastrotomy on the anterior surface. Using 2 sutures | | | this was secured to the posterior wall of the transected esophagus | | | at the 7 and 5 o'clock positions. The proximal portion of the | | | gastric conduit was placed behind the esophagus. We used a single | | | firing of the Endo MARY lavender 45 mm load to create an | | | esophagogastrostomy in the fashion of Adama. This was fairly | | | wide and patent. The NG tube was then placed back through this | | | into the gastric conduit and checked for position. We then | | | closed the resulting esophagogastrostomy using a running 4-0 Maxon | | | layer and Lemberted 2-0 silk sutures over this. A leak test was | | | performed using methylene blue and there was no leak seen. The | | | anastomosis was then placed back into the posterior part of the neck | | | at the thoracic inlet. It lay down very well without any evidence | | | of bleeding or perforation. The area was then washed out, there | | | was no bleeding. We then placed a Mike-Watts drain which had | | | been trimmed into the neck incision and down towards the area where | | | we had done the anastomosis. We closed the platysma using 2-0 | | | Vicryl and closed the skin using running 4-0 Biosyn. We then | | | washed and dried the incision and applied skin glue. All | | | sponge, needle, and instrument counts were correct at the end of the | | | case. Dr. Vicente was scrubbed and present for the duration of the | | | case. Disposition: To the ICU intubated and sedated | | | ------- Darin Zaragoza MD General Surgery PGY2 [id number] | | | | | + + + X-RAY PORTABLE CHEST 1 VIEW (05/14/2018 5:54 PM PDT) + + | Specimen | + + | | + + + + + | Narrative | Performed At | + + + | EXAM: IL CHEST 1 VIEW HISTORY: 67-year-old male with esophageal | [facility] | | adenocarcinoma, postop day #0 from resection. Evaluate support | RADIOLOGY VOICE | | equipment. COMPARISON: CT chest/abdomen/pelvis 03/22/2018 | RECOGNITION 2 | | FINDINGS: An endotracheal tube is present with the tip | | | approximately 4 cm above the john. A right internal jugular central | | | venous catheter is present with the tip in the mid SVC. An enteric | | | tube is present with tip projecting over the mid thorax. Bilateral | | | apically directed large bore surgical chest tubes are present. A | | | mediastinal Tristen drain is present. Surgical clips overlie the | | | mediastinum and upper abdomen. Mild left basilar atelectasis is | | | present. The lungs are otherwise clear without focal consolidation or | | | edema. A small left pleural effusion is present. A small right | | | pneumothorax is noted with presence of a deep sulcus sign. The | | | cardiomediastinal contour is unremarkable. The bones are intact. | | | IMPRESSION: Small right pneumothorax. Mild left basilar | | | atelectasis and small left pleural effusion. I have personally | | | reviewed the images and, if necessary, edited the report. I agree with | | | the report as now presented. Final signature: James Palomino MD | | | 05/15/2018 10:09 AM Preliminary: Bia Alexandre MD | | | Dictation initiated: Bia Alexandre MD 05/15/2018 8:06 AM | | + + + + + | Procedure Note | + + | Service Account, Radiant Res In Interface - 05/15/2018 10:10 AM PDT EXAM: IL CHEST 1 | | VIEW HISTORY: 67-year-old male with esophageal adenocarcinoma, postop day #0 from | | resection. Evaluate support equipment. COMPARISON: CT chest/abdomen/pelvis 03/22/2018 | | FINDINGS: An endotracheal tube is present with the tip approximately 4 cm above the | | john. A right internal jugular central venous catheter is present with the tip in the | | mid SVC. An enteric tube is present with tip projecting over the mid thorax. Bilateral | | apically directed large bore surgical chest tubes are present. A mediastinal Tristen drain | | is present. Surgical clips overlie the mediastinum and upper abdomen. Mild left basilar | | atelectasis is present. The lungs are otherwise clear without focal consolidation or | | edema. A small left pleural effusion is present. A small right pneumothorax is noted | | with presence of a deep sulcus sign. The cardiomediastinal contour is unremarkable. The | | bones are intact. IMPRESSION: Small right pneumothorax. Mild left basilar atelectasis | | and small left pleural effusion. I have personally reviewed the images and, if | | necessary, edited the report. I agree with the report as now presented. Final | | signature: James Palomino MD 05/15/2018 10:09 AM Preliminary: Bia Alexandre MD | | Dictation initiated: Bia Alexandre MD 05/15/2018 8:06 AM | |Small right pneumothorax. | | | |Mild left basilar atelectasis and small left pleural effusion. | | | |I have personally reviewed the images and, if necessary, edited the report. I agree with th e report as now presented. | | | |Final signature: James Palomino MD 05/15/2018 10:09 AM | |Preliminary: Bia Alexandre MD | |Dictation initiated: Bia Alexandre MD 05/15/2018 8:06 AM | + + + +---------+ + + | Performing | Address | City/State/Zipcode | Phone Number | | Organization | | | | + +---------+ + + | [facility] | | | | | VOICE RECOGNITION 2 | | | | + +---------+ + + RAINBOW HOLD TUBE - BLUE TOP (05/14/2018 5:31 PM PDT) + + | Specimen | + + | Blood - Blood | | (substance) | + + + + + + + | Performing | Address | City/State/Zipcode | Phone Number | | Organization | | | | + + + + + | [facility] | [address] | [place] [address] | | | SERVICES, CORE | [address] | | | + + + + + CBC (HEMOGRAM) ONLY (05/14/2018 5:31 PM PDT) + + + + + + | Component | Value | Ref Range | Performed | Pathologist | | | | | At | Signature | + + + + + + | WHITE CELL | 7.97 | 3.50 - 10.80 | [facility] | | | COUNT | | K/cu mm | LABORATORY | | | | | | SERVICES, | | | | | | CORE | | + + + + + + | RED CELL | 2.86 (L) | 4.50 - 6.00 | [facility] | | | COUNT | | M/cu mm | LABORATORY | | | | | | SERVICES, | | | | | | CORE | | + + + + + + | HEMOGLOBIN | 9.7 (L) | 13.5 - 17.5 | [facility] | | | | | g/dL | LABORATORY | | | | | | SERVICES, | | | | | | CORE | | + + + + + + | HEMATOCRIT | 27.9 (L) | 41.0 - 53.0 % | [facility] | | | | | | LABORATORY | | | | | | SERVICES, | | | | | | CORE | | + + + + + + | MCV | 97.6 | 80.0 - 100.0 fL | [facility] | | | | | | LABORATORY | | | | | | SERVICES, | | | | | | CORE | | + + + + + + | MCHC | 34.8 | 32.0 - 36.0 | [facility] | | | | | g/dL | LABORATORY | | | | | | SERVICES, | | | | | | CORE | | + + + + + + | RDW SD | 49.0 (H) | 35.1 - 46.3 fL | [facility] | | | | | | LABORATORY | | | | | | SERVICES, | | | | | | CORE | | + + + + + + | PLATELET | 149 (L) | 150 - 400 K/cu | [...] Performed At | + + + | New reference ranges for MCV, MCHC, PLT, IG% and IG# effective | [facility] | | 04/04/2018 | LABORATORY | | | [address] | + + + + + + + + | Performing | Address | City/State/Zipcode | Phone Number | | Organization | | | | + + + + + | [facility] | [address] | [place] [address] | | | SERVICES, JUSTIN | [address] | | | + + + + + BLOOD GASES, ARTERIAL - LAB (05/14/2018 5:31 PM PDT) + + + + + + | Component | Value | Ref Range | Performed | Pathologist | | | | | At | Signature | + + + + + + | FIO2 | 0.40 | | [facility] | | | ARTERIAL | | | LABORATORY | | | | | | SERVICES, | | | | | | CORE | | + + + + + + | PH ARTERIAL | 7.46 (H) | 7.37 - 7.44 | [facility] | | | | | | LABORATORY | | | | | | SERVICES, | | | | | | CORE | | + + + + + + | PCO2 | 37 | 32 - 43 mmHg | [facility] | | | ARTERIAL | | | LABORATORY | | | | | | SERVICES, | | | | | | CORE | | + + + + + + | PO2 | 179 (H) | 72 - 104 mmHg | [facility] | | | ARTERIAL | | | LABORATORY | | | | | | SERVICES, | | | | | | CORE | | + + + + + + | HCO3 | 26 | 21 - 28 mmol/L | [facility] | | | ARTERIAL | | | LABORATORY | | | | | | SERVICES, | | | | | | CORE | | + + + + + + | TOTAL CO2 | 27 | 22 - 28 mmol/L | [facility] | | | ARTERIAL | | | LABORATORY | | | | | | SERVICES, | | | | | | CORE | | + + + + + + | BASE EXCESS | 3.0 (H) | -2.0 - 2.0 | [facility] | | | ARTERIAL | | mmol/L | LABORATORY | | | | | | SERVICES, | | | | | | CORE | | + + + + + + | O2 SAT, | 99.6 (H) | 92.0 - 98.0 % | [facility] | | | ARTERIAL | | | LABORATORY | | | | | | SERVICES, | | | | | | CORE | | + + + + + + | PAO2/FIO2 | 448 | >300 mmHg | [facility] | | | RATIO | | | LABORATORY | | | [...] + | [facility] | [address] | [place] [address] | | | SERVICES, CORE | [address] | | | + + + + + CAPILLARY BLOOD GLUCOSE (NO CHG), POC (05/14/2018 5:30 PM PDT) + +---------+ + + + | Component | Value | Ref Range | Performed | Pathologist | | | | | At | Signature | + +---------+ + + + | BLOOD | 135 (H) | 70 - 99 mg/dL | [facility] - | | | GLUCOSE, | | | [facility] | | | POC | | | [facility] | | | | | | OF CARE | | | | | | TESTS | | + +---------+ + + + + + | Specimen | + + | | + + + + + + + | Performing | Address | City/State/Zipcode | Phone Number | | Organization | | | | + + + + + | [facility] | [address] | [place], [place] | | | [facility] OF CARE | [facility] | [phone] | | | TESTS | | | | + + + + + MAGNESIUM, PLASMA (05/14/2018 5:30 PM PDT) + +-------+ + + + | Component | Value | Ref Range | Performed | Pathologist | | | | | At | Signature | + +-------+ + + + | MAGNESIUM,P | 2.0 | 1.6 - 2.6 mg/dL | [facility] | | | LASMA | | | LABORATORY | | | | | | SERVICES, | | | | | | CORE | | + +-------+ + + + + + | Specimen | + + | Blood - Blood | | (substance) | + + + + + | Narrative | Performed At | + + + | Reference range change effective 07/10/17. | [facility] | | | LABORATORY | | | [address] | + + + + + + + + | Performing | Address | City/State/Zipcode | Phone Number | | Organization | | | | + + + + + | [facility] | [address] | [place] [address] | | | SERVICES, JUSTIN | [address] | | | + + + + + RENAL FUNCTION SET (NA,K,CL,CO2,BUN,CREAT,GLUC,CA,PHOS,ALB ) (05/14/2018 5:30 PM PDT) + + + + + + | Component | Value | Ref Range | Performed | Pathologist | | | | | At | Signature | + + + + + + | GLUCOSE, | 151 (H) | 70 - 99 mg/dL | [facility] | | | PLASMA | | | LABORATORY | | | (LAB) | | | SERVICES, | | | | | | CORE | | + + + + + + | BUN, PLASMA | 14 | 6 - 20 mg/dL | [facility] | | | (LAB) | | | LABORATORY | | | | | | SERVICES, | | | | | | CORE | | + + + + + + | CREATININE | 0.68 (L) | 0.70 - 1.30 | [facility] | | | PLASMA | | mg/dL | LABORATORY | | | (LAB) | | | SERVICES, | | | | | | CORE | | + + + + + + | EGFR | >60 | >60 mL/min | [facility] | | | - | | | LABORATORY | | | [place] | | | SERVICES, | | | | | | CORE | | + + + + + + | EGFR NON | >60 | >60 mL/min | [facility] | | | -[place]TA | | | LABORATORY | | | RICAN | | | SERVICES, | | | | | | CORE | | + + + + + + | SODIUM, | 145 | 136 - 145 | [facility] | | | PLASMA | | mmol/L | LABORATORY | | | (LAB) | | | SERVICES, | | | | | | CORE | | + + + + + + | POTASSIUM, | 4.4 | 3.4 - 5.0 | [facility] | | | PLASMA | | mmol/L | LABORATORY | | | (LAB) | | | SERVICES, | | | | | | CORE | | + + + + + + | CHLORIDE, | 112 (H) | 97 - 108 mmol/L | [facility] | | | PLASMA | | | LABORATORY | | | (LAB) | | | SERVICES, | | | | | | CORE | | + + + + + + | TOTAL CO2, | 26 | 21 - 32 mmol/L | [facility] | | | PLASMA | | | LABORATORY | | | (LAB) | | | SERVICES, | | | | | | CORE | | + + + + + + | CALCIUM, | 8.3 (L) | 8.6 - 10.2 | [facility] | | | PLASMA | | mg/dL | LABORATORY | | | (LAB) | | | SERVICES, | | | | | | CORE | | + + + + + + | CALCIUM(ALB | 9.3 | 8.6 - 10.2 | [facility] | | | CORRECTED) | | mg/dL | LABORATORY | | | | | | SERVICES, | | | | | | CORE | | + + + + + + | ALBUMIN, | 2.7 (L) | 3.5 - 4.7 g/dL | [facility] | | | PLASMA | | | LABORATORY | | | (LAB) | | | SERVICES, | | | | | | CORE | | + + + + + + | PHOSPHORUS, | 3.8 | 2.4 - 4.7 mg/dL | [facility] | | | PLASMA | | | LABORATORY | | | (LAB) | | | SERVICES, | | | | | | CORE | | + + + + + + | POTASSIUM | No Hemo | | [facility] | | | CMNT | | | LABORATORY | | | | | | SERVICES, | | | | | | CORE | | + + + + + + | ANION GAP | 7 | 4 - 11 mmol/L | [facility] | | | | | | LABORATORY | | | | | | SERVICES, | | | | | | CORE | | + + + + + + | ANION | 10 | 4 - 11 mmol/L [...] using the MDRD equation recommended by the | [facility] | | National Kidney Disease Education Program. Estimated GFR | LABORATORY | | Interpretive Information: <60 mL/min/1.73 sq m | SERVICES, CORE | | Chronic Kidney Disease <15 mL/min/1.73 sq m | | | Kidney Failure Estimated GFR greater that 60 mL/min/1.73 sq m is of | | | limited clinical value. The MDRD equation is not valid in the | | | following situations: - Patients under 18 years of age - Severe | | | malnutrition or obesity - Vegetarian diet - Rapidly changing kidney | | | function - Amputees, paraplegics, or other muscle-wasting diseses | | + + + + + + + + | Performing | Address | City/State/Zipcode | Phone Number | | Organization | | | | + + + + + | [facility] | [address] | [place] [address] | | | SERVICES, JUSTIN | [address] | | | + + + + + PROCEDURE NOTE (05/14/2018 5:01 PM PDT) + + + | Narrative | Performed At | + + + | Chula Pal MD 05/15/2018 4:59 PM [facility] Department | | | of Surgery Operative Note Author: Anibal Craven MD Attending: | | | Chula Pal MD ID: Jacob Iverson Date of the | | | Procedure: 05/14/2018 Preoperative Diagnosis: Distal esophageal | | | adenocarcinoma Postoperative Diagnosis: same Procedure: 1. | | | Laparoscopic 3 field esophagectomy (abdominal portion) 2. | | | Laparoscopic enterolysis x 60 minutes 3. Laparoscopic pyloromyotomy | | | Surgeon: Juvenal Vicente MD Co-Surgeon: Chula Pal MD | | | Manager Supply(s): Anibal Craven MD Indication: A 67 y.o. male | | | patient who presented with dysphagia who was subsequently found to | | | have localized distal invasive esophageal adenocarcinoma. The | | | patient was subsequently evaluated by multidisciplinary care | | | providers and following neoadjuvant chemoradiotherapy the patient | | | was restaged and found to again be without systemic disease. | | | Therefore, after appropriate discussion of the risks and benefits is | | | now taken to the operating room to undergo esophagectomy by means | | | of a minimally invasive 3 field approach Procedure Technique: | | | Prior to the patient being taken back to the operating room he was | | | identified and questions were answered. Epidural catheter was | | | placed. The patient was taken to the operating room and placed on | | | the table in the supine position. SCDs were placed prior to | | | induction of general anesthesia. Any safety precautions were | | | addressed. After induction of anesthesia, the patient was laid in a | | | left lateral decubitus position for the thoracic portion of the | | | operation (which will be dictated in a separate procedure note). | | | At the end of the thoracic portion of the procedure the patient was | | | repositioned on the operating room table. The double lumen tube | | | was removed and replaced with a single-lumen tube. He was then | | | placed split leg with arms tucked. Two chest tubes had already | | | been placed. All pressure points were carefully padded. A Wilkerson | | | catheter was already in place as were sequential decompression | | | devices and a nasogastric tube was placed as well. He was tested | | | in the steep reverse Trendelenburg position. The left neck was | | | extended. The chest and abdomen were prepped into the field and | | | draped in the usual sterile manner. Preoperative pause was | | | taken to identify the patient, procedure being performed, confirm | | | that all necessary personnel and equipment were present and | | | accounted for, the patient received appropriate perioperative | | | antibiotics. We began by establishing a pneumoperitoneum of 15 mm | | | of pressure of CO2 gas via the Veress needle technique at the | | | umbilicus. Once this was established an 11 mm trocar was placed | | | supraumbilically and slightly off to the left side. We then | | | proceeded to place a left subcostal 12 mm port, a right subcostal 12 | | | mm port, two 5 mm ports in the left lateral and right lateral | | | abdominal areas. We began by doing a diagnostic laparoscopy. We | | | lifted up the left lateral segment of the liver which was fairly | | | small and we found no evidence of localized or extensive disease | | | there. The patient had no evidence of hiatal hernia. The | | | falciform ligament and the liver appeared normal as did the | | | peritoneum and the lower portion of the abdomen. After this, | | | the patient was then placed in steep reverse Trendelenburg position. | | | We made a small 5 mm subxiphoid incision. We placed a Susan | | | retractor through this, elevated the left lobe of the liver up out | | | of the way, and secured this in place using and Iron Broadcast Checker | | | retractor. The Wingman retractor was deployed to hold the camera. | | | The pars flaccida, was already incised from our prior conditioning | | | so we came up along the angle of the right zohaib and incised across | | | the anterior margin of the zohaib to the left-hand side. We then | | | dissected down along the right zohaib to the posterior gastric area. | | | There were abundant adhesions between the lesser and the liver, | | | the duodenum and the liver as well as the omentum, this was due to | | | the patient's prior open cholecystectomy. We then took down the | | | short gastric vessels beginning at the lower pole of the spleen and | | | moving all up along the greater curvature. In doing so we rotated | | | the patient's fundus to the right-hand side to allow us to do a | | | posterior dissection in this area as well. After this was done we | | | continued our dissection along the greater curvature of the | | | stomach by 1st locating the very distal branches of the right | | | gastroepiploic and stepping off lateral to these to come along the | | | mesentery in this area with a good margin so that we would not | | | damage the right gastroepiploic. The greater curvature was freed | | | up all the way around to the C-loop of the duodenum. We took care | | | not to disturb or transect the gastroepiploic vessels. We then did a | | | posterior gastric dissection and took down some adhesions and were | | | eventually able to lift the stomach up completely anteriorly so that | | | we could see the gastrohepatic pedicle very nicely. We went | | | back again to the greater curve, came onto the duodenum in the | | | midportion of the C-loop and did a Wilver maneuver beginning across | | | the C-loop moving up along the 2nd portion towards the noni hepatis | | | and finally onto the 1st portion of duodenum. The duodenum and | | | stomach were very forgiving in respect to length. After this was | | | completed the 1st, 2nd, and 3rd portions of the duodenum had been | | | rotated very nicely towards the patient's midline and came up over | | | the pancreas quite easily. After we had done this we then | | | performed our central celiac dissection around the left gastric | | | vessels and the splenic artery and did this all up to the base of | | | the desiccation of the zohaib of the diaphragm. Now using a | | | single firing of the Endo MARY mustard load 45mm to transect the left | | | gastric vessels low just above the celiac axis. It came away quite | | | nicely with no bleeding. At this point we fashioned our conduit. | | | We chose a point about 5 cm from the pylorus on the lesser curve. | | | This also made a single firing of the Endo MARY purple load 45 mm | | | stapler. This established a start for our conduit. Then using | | | successive firings of the Endo-MARY 60 mm load we came up along the | | | longitudinal axis of the stomach and a mass that was removed | | | essentially a third of the stomach as specimen leaving behind a nice | | | gastric tube measuring about 3.5 cm in greatest diameter. This | | | tapered off nicely to a point near the fundus. It remained pink | | | even after creation of the conduit. We then stapled off a small | | | piece of the remnant of the stomach at the greater curvature and | | | sent this off as distal margin. On frozen section analysis there | | | was no evidence of malignancy. After this was done we did a | | | laparoscopic pyloromyotomy. This was done by 1st locating the | | | pylorus and placing a transfixing stitch around it towards the | | | lesser curvature of the stomach with a 2-0 Tycron. With this held | | | up in place we then scored the serosa from the stomach across the | | | pylorus under the duodenum, and then using the L hook we did a | | | pyloromyotomy extracting all the fibers and cutting using blunt | | | dissection and gentle electrocautery. We opened up the myotomized | | | area and found that we could see the mucosa of both the stomach and | | | the duodenum on both sides and there were no remnant fibers. | | | We were thus satisfied with our pyloromyotomy and then we turned | | | our attention to making sure there was no bleeding along the staple | | | line. This was done using the L hook. Next, we completed our | | | hiatal dissection circumferentially around the specimen to the GE | | | junction. We were able to dissect all up in the continuity of the | | | thoracic dissection. There was no significant hemodynamic | | | instability with coming into the chest. We then placed the | | | redundant end of the esophagus and stomach up through the hiatus to | | | use it as a plug and then sutured the end of the dissected specimen | | | of the lesser curve of the stomach to the proximal portion of the | | | gastric conduit to allow the conduit to be brought up into the neck | | | at that time when the specimen was also brought up to be removed. | | | Next, using gentle retraction, we brought up the esophagus, | | | the resected portion of the stomach and the attached gastric conduit | | | into the neck. We had excellent length at this point and | | | therefore tacked the gastric conduit with pledgets to the | | | diaphragmatic zohaib. On the back table we opened up the specimen | | | itself. We had a wide margin between where the old scarred part of | | | the tumor was and the proximal margin but there was some suspicion | | | for active tumor. We then changed our gloves out and scrubbed back | | | into the field. The stomach portion at this time as well was | | | also secured to the hiatus using three 0 Tycron sutures,10, 3, 12, | | | 2 and 9 o'clock position along the hiatus. The fatty investments | | | at the right gastroepiploic were also secured to the base of the | | | hiatus using 0 Tycron. We then irrigated the upper abdomen | | | copiously with saline and aspirated this out. Using methylene blue | | | we placed about 75-100 cc of methylene blue through the NG tube and | | | into the lower part of the gastric conduit to test the | | | pyloromyotomy. At the conclusion, we could see there was no | | | evidence of dye extravasation from the pyloromyotomy site. | | | Methylene blue was then aspirated back out of the NG tube. The | | | NG tube was then secured in place without any difficulty. At | | | this point we withdrew all of our abdominal ports under direct | | | visualization and desufflated the abdomen. The incisions were all | | | washed and dried. The skin was closed with a subcuticular suture | | | of 4-0 monofilament (Byosin) and glue (Dermabond). The surgical | | | procedure was terminated. The patient tolerated the procedure | | | well, was extubated and taken to and transferred to the ICU in good | | | condition. Juvenal Vicente MD, was present and scrubbed for all | | | critical portions of the procedure. Dr. Chula Pal was present and | | | scrubbed for the entirety of the operation, including the critical | | | ones and the RSI. - Anibal Craven MD [facility] Department of Surgery | | | Pager: [phone] CO SURGEON NOTE: Attending Surgeon: Dr. Sanford | | | Jules Co-Surgeons: Dr. Chula Pal (abdomen); Dr. Wisdom | | | (Thoracic) Manager Supply(s): Anibal | | | MD Merissa; Charles Zaragoza MD, Cristina Berg MS3 | | | Preoperative Diagnosis: Esophageal cancer. Postoperative | | | Diagnosis: Same Procedure: 1. Laparoscopic 3 field | | | esophagectomy (abdominal portion) 2. Laparoscopic enterolysis x 60 | | | minutes 3. Laparoscopic pyloromyotomy Anesthesia: General | | | endotracheal anesthesia. Thoracic Findings: The thoracic | | | portion of the operation was performed by Dr. Wisdom and the thoracic | | | team. Intraabdominal Findings: There was no evidence of local | | | metastatic disease. A conduit was created with good visible | | | blood supply and the anastomosis was performed in the usual fashion. | | | The conduit was secured to the hiatus using 4-0 Tycron sutures. | | | There was no leak noted on methylene blue test at end of | | | pyloromyotomy. 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 On frozen section the proximal and | | | distal margins were negative for cancer. Procedure In Detail: | | | Prior to the patient being taken back to the operating room he was | | | identified and questions were answered. Sites were marked and | | | needed antibiotics administered. Epidural catheter was placed. | | | They were then taken back to the operating room, laid in a left | | | lateral decubitus position for the thoracic portion of the | | | operation. This was conducted by Dr. Wisdom and his team and was | | | dictated under a different portion of the operative note. At | | | the end of the thoracic portion of the procedure, bilateral chest | | | tubes were placed by the thoracic team and the patient was | | | repositioned on the operating room table. The double lumen tube | | | was removed and replaced with a single-lumen tube. He was then | | | placed split leg with arms tucked. All pressure points were | | | carefully padded. A Wilkerson catheter was in place as were sequential | | | decompression devices and a nasogastric tube was placed as well. | | | The patient was tested in the steep reverse Trendelenburg | | | position. The left neck was extended. The chest and abdomen were | | | prepped into the field and draped in the usual sterile manner. | | | After conducting a second pause on the operative field we began | | | by establishing a pneumoperitoneum of 15 mm of pressure of CO2 gas | | | via the Veress needle technique at the umbilicus. Once this was | | | established we placed a left subcostal 12 mm port, a right subcostal | | | 12 mm port, two 5 mm ports in the left lateral and right lateral | | | abdominal areas. There was no gross evidence of injury from | | | insufflation or metastatic disease. The placed in steep reverse | | | Trendelenburg position. We made a small 5 mm subxiphoid incision. | | | We placed a Susan retractor through this, elevated the left | | | lobe of the liver up out of the way, and secured this in place using | | | and Iron Broadcast Checker retractor. The Wingman retractor was deployed to | | | hold the camera. By incising the pars flaccida, we came up along | | | the angle of the right zohaib and incised across the anterior margin | | | of the zohaib to the left-hand side. We then dissected down along | | | the right zohaib to the posterior gastric area. We then took down | | | the short gastric vessels beginning at the lower pole of the spleen | | | and moving all up along the greater curvature, and in doing so we | | | rotated the patient's fundus to the right-hand side to allow us to | | | do a posterior dissection in this area as well. There was extensive | | | adhesions along the greater due to his prior open cholecystectomy. | | | These which were carefully taken down over 60 minutes to avoid | | | damage to the right gastroepiploic. After this was done we | | | continued our dissection along the greater curvature of the stomach | | | by 1st locating the very distal branches of the right gastroepiploic | | | and stepping off lateral to these to come along the mesentery in | | | this area with a good margin so that we would not damage the right | | | gastroepiploic. The greater curvature was freed up all the way | | | around to the C-loop of the duodenum. We took care not to disturb | | | or transect the gastroepiploic vessels. We then did a posterior | | | gastric dissection and took down some adhesions and were eventually | | | able to lift the stomach up completely anteriorly so that we could | | | see the gastrohepatic pedicle very nicely. We went back again to | | | the greater curve, came onto the duodenum in the midportion of the | | | C-loop and did a Wilver maneuver beginning across the C-loop moving | | | up along the 2nd portion towards the noni hepatis and finally onto | | | the 1st portion of duodenum. After this was completed the 1st, | | | 2nd, and 3rd portions of the duodenum had been rotated very nicely | | | towards the patient's midline and came up over the pancreas quite | | | easily. After we had done this we then performed our central celiac | | | dissection around the left gastric vessels. We then used a | | | single firing of the Endo MARY to transect the left gastric vessels. | | | There was good hemostasis. At this point we fashioned our | | | conduit. We chose a point about 5 cm from the pylorus on the | | | lesser curve. This also made a single firing of the Endo MARY | | | purple load 45 mm stapler. This established a start for our | | | conduit. Then using successive firings of the Endo-MARY 60 mm load | | | we came up along the longitudinal axis of the stomach and a mass | | | that was removed essentially a third of the stomach as specimen | | | leaving behind a nice gastric tube measuring about 3.5 cm in | | | greatest diameter. This tapered off to a point near the fundus. | | | It remained pink even after creation of the conduit. We then | | | stapled off a small piece of the remnant of the stomach at the | | | greater curvature and sent this off as distal margin. On frozen | | | section analysis there was no evidence of malignancy. Bleeding | | | along the staple line was controlled with cautery. The end of the | | | conduit remained pink. Next, we completed our hiatal dissection | | | circumferentially around the specimen to the GE junction. We were | | | able to dissect all up in the continuity of the thoracic dissection. | | | We then placed the redundant end of the esophagus and stomach up | | | through the hiatus to use it as a plug and then sutured the end of | | | the dissected specimen of the lesser curve of the stomach to the | | | proximal portion of the gastric conduit to allow the conduit to be | | | brought up into the neck at that time when the specimen was also | | | brought up to be removed. The neck team pulled the conduit up | | | in to the neck. Please see Dr. Vicente's note above for dictation | | | of this portion of the case. This note is a repetition of a portion | | | of his note. After this, we did a laparoscopic pyloromyotomy. | | | This was done by first locating the pylorus and placing a | | | transfixing stitch around it towards the lesser curvature of the | | | stomach. With this held up in place we then scored the serosa from | | | the stomach across the pylorus under the duodenum, and then using | | | the L hook we did a pyloromyotomy extracting all the fibers and | | | cutting using blunt dissection and gentle electrocautery. We | | | opened up the myotomized area and found that we could see the mucosa | | | of both the stomach and the duodenum on both sides and there were | | | no remnant fibers. The gastric conduit was secured to the hiatus | | | using four 0 Tycron sutures, at the 10, 3, 12, 2 and 9 o'clock | | | position along the hiatus. We placed about 90cc of methylene | | | blue through the NG tube and into the lower part of the gastric | | | conduit to test the pyloromyotomy. At the pyloromyotomy we could | | | see there was no evidence of dye extravasation. Methylene blue was | | | then aspirated back out of the NG tube. The NG tube was then | | | bridled in place without any difficulty. At this point we withdrew | | | all of our abdominal ports under direct visualization and | | | desufflated the abdomen. The incisions were all washed and dried. | | | The skin was closed using 4-0 Biosyn and was sealed with skin | | | glue. The patient remained intubated and was transferred to an ICU | | | bed and was transported to the ICU without any complications. I | | | was present and scrubbed for all portions of the operation except | | | neck closure. After the neck dissection - and before bringing the | | | specimen out through the neck and performing the esophagogastric | | | anastomosis - Dr Vicente scrubbed into the case to assist with the | | | duodenal mobilization, creation of the gastric conduit and final | | | hiatal dissection as detailed above and in his note. | | + + + PROCEDURE NOTE (05/14/2018 4:51 PM PDT) + + + | Narrative | Performed At | + + + | Chula Pal MD 05/15/2018 5:02 PM BRIEF OPERATIVE NOTE: | | | Date: 05/14/2018 Author: Anibal Craven MD Attending | | | Physician: Juvenal Vicente MD Co-Surgeon: Chula Pal MD | | | Manager Supply(s): Anibal Craven MD Prior to the beginning of the | | | procedure the team paused to verify the patient's identity, as well | | | as the procedure to be performed and the correct side/site. All | | | equipment required was ready and available. The patient was | | | positioned appropriately. 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 Postoperative Diagnosis: same Procedure | | | Performed: 3-field minimally invasive esphagectomy Anesthesia: | | | GETA Findings: negative frozen margins, adequate conduit length | | | and vascularization Estimated Blood Loss: 75 mL Fluids: 4 L; | | | 330 mL Specimens: esophagogastrectomy Complications: none | | | apparent Drains: right and left chest tubes, wilkerson, cervical CHELLE, | | | NGT Plan: direct to ICU Anibal Craven MD [facility] Department of | | | Surgery Pager: [phone] | | + + + ABG-FULL ABL, POC (05/14/2018 4:35 PM PDT) + + + + + + | Component | Value | Ref Range | Performed | Pathologist | | | | | At | Signature | + + + + + + | PH | 7.44 | 7.37 - 7.44 | [facility] | | | [facility], | | | [facility] | | | POC | | | [facility] | | | | | | [facility] | | | | | | TESTS | | + + + + + + | PO2 | 208 (H) | 72 - 104 mmHg | [facility] - | | | [facility], | | | [facility] | | | POC | | | [facility] | | | | | | [facility] CARE | | | | | | TESTS | | + + + + + + | PCO2 | 38 | 32 - 43 mmHg | [facility] - | | | [facility], | | | [facility] | | | POC | | | [facility] | | | | | | OF CARE | | | | | | TESTS | | + + + + + + | TOTAL | 9.4 (L) | 13.5 - 17.5 | [facility] - | | | HEMOGLOBIN, | | g/dL | [facility] | | | POC | | | [facility] | | | | | | OF CARE | | | | | | TESTS | | + + + + + + | O2 SAT | 99.6 (H) | 92.0 - 98.0 % | [facility] - | | | [facility], | | | [facility] | | | POC | | | [facility] | | | | | | OF CARE | | | | | | TESTS | | + + + + + + | OXYHEMOGLOB | 97.6 | 94.0 - 100 % | [facility] - | | | IN, POC | | | [facility] | | | | | | [facility] | | | | | | OF CARE | | | | | | TESTS | | + + + + + + | HEMATOCRIT, | 28.8 (L) | 41.0 - 53.0 % | [facility] - | | | POC | | | [facility] | | | | | | [facility] | | | | | | OF CARE | | | | | | TESTS | | + + + + + + | POTASSIUM, | 4.6 | 3.4 - 5.0 | [facility] - | | | POC | | mmol/L | [facility] | | | | | | [facility] | | | | | | OF CARE | | | | | | TESTS | | + + + + + + | SODIUM, POC | 144 (H) | 134 - 143 | [facility] - | | | | | mmol/L | [facility] | | | | | | [facility] | | | | | | OF CARE | | | | | | TESTS | | + + + + + + | DAVID | 1.17 | 1.14 - 1.32 | [facility] - | | | IONIZED CA, | | mmol/L | [facility] | | | POC | | | [facility] | | | | | | OF CARE | | | | | | TESTS | | + + + + + + | CHLORIDE, | 109 (H) | 97 - 108 mmol/L | [facility] - | | | POC | | | [facility] | | | | | | [facility] | | | | | | OF CARE | | | | | | TESTS | | + + + + + + | GLUCOSE, | 168 (H) | 70 - 99 mg/dL | [facility] - | | | POC | | | [facility] | | | | | | [facility] | | | | | | OF CARE | | | | | | TESTS | | + + + + + + | HCO3 | 25.9 | 21 - 28 mmol/L | [facility] - | | | ART[facility], | | | [facility] | | | POC | | | [facility] | | | | | | OF CARE | | | | | | TESTS | | + + + + + + | BASE EXCESS | 1.7 | | [facility] - | | | [facility], | | | [facility] | | | POC | | | [facility] | | | | | | OF CARE | | | | | | TESTS | | + + + + + + | LACTATE | 2.3 (H) | 0.5 - 1.6 | [facility] - | | | ARTERIAL, | | mmol/L | [facility] | | | POC | | | [facility] | | | | | | OF CARE | | | | | | TESTS | | + + + + + + | METHEMOGLOB | 0.5 | 0.0 - 1.9 % | [facility] - | | | IN, POC | | | [facility] | | | | | | [facility] | | | | | | OF CARE | | | | | | TESTS | | + + + + + + | PAT TEMP | 37.0 | | [facility] - | | | ART, POC | | | [facility] | | | | | | [facility] | | | | | | OF CARE | | | | | | TESTS | | + + + + + + + + | Specimen | + + | Blood - Blood | | (substance) | + + + + + + + | Performing | Address | City/State/Zipcode | Phone Number | | Organization | | | | + + + + + | [facility] | [address] | [place], [place] | | | [facility] | [facility] | [phone] | | | TESTS | | | | + + + + + CAPILLARY BLOOD GLUCOSE (NO CHG), POC (05/14/2018 3:16 PM PDT) + +---------+ + + + | Component | Value | Ref Range | Performed | Pathologist | | | | | At | Signature | + +---------+ + + + | BLOOD | 107 (H) | 70 - 99 mg/dL | [facility] - | | | GLUCOSE, | | | [facility] | | | POC | | | [facility] | | | | | | OF CARE | | | | | | TESTS | | + +---------+ + + + + + | Specimen | + + | | + + + + + + + | Performing | Address | City/State/Zipcode | Phone Number | | Organization | | | | + + + + + | [facility] | [address] | [place], [place] | | | [facility] | [address] | [phone] | | | TESTS | | | | + + + + + PROCEDURE NOTE (05/14/2018 2:05 PM PDT) + + + | Narrative | Performed At | + + + | Dalton Wisdom MD 05/14/2018 2:11 PM Operative note | | | Date of surgery: 05/14/18 Attending Surgeon: Dalton Wisdom M.D. | | | Co-Surgeon: Juvenal Vicente M.D. Manager Supply(s): | | | Cherie Zamora MD [facility], PAC Preoperative | | | Diagnosis(es): Esophageal adenocarcinoma Postoperative | | | Diagnosis(es): Esophageal adenocarcinoma Procedures | | | Performed: 1 Pneumolysis 2. thoracoscopic mobilization of the | | | esophagus. 3. Mediastinal lymph node dissection 4. TD ligation | | | 5. Left tube thoracostomy Anesthesia: General | | | endotracheal anesthesia. Estimated Blood Loss: 50 ml | | | Complications: None apparent. Drains: | | | Bilateral 28-Montserratian chest tubes. Findings: Level 7,8L, | | | 9r, 10 R lymph nodes were sent separately for pathology. 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 His repeat imaging showed | | | no evidence of metastatic disease. He is now taken for | | | esophagectomy. Procedure: After the patient was | | | appropriately identified and consent was confirmed, she was | | | taken to the operating room and placed in a supine position on the | | | operating table. He received anesthesia and was intubated without | | | difficulty. Esophagoscopy showed no clear evidence of residual | | | disease but there was treatment changes noted at the GE junction at | | | 40 cm from the incisors. After that was complete,the patient | | | was placed in the left lateral decubitus position. The right chest | | | was prepped and draped in a standard surgical fashion. Local | | | anesthetic was injected in the 7th intercostal space in the | | | anterior axillary line. A 1 1/2 cm incision was made. The dissection | | | was carried down to the intercostal muscle. The patient was | | | placed on single lung ventilation. The intercostal muscle and pleura | | | were divided. Diagnostic thoracoscopy was performed. A utility | | | incision was made in the anterior 5th intercostal space. There were | | | diffuse thin adhesions that were noted and we spent 1 hour | | | performing pneumolysis with sharp dissection and electrocautery. | | | There was no effusion or pleural nodules. We made an additional | | | posterior 8th intercostal space incision. We divided | | | the right pulmonary ligament with electrocautery to the inferior | | | pulmonary vein. Level 9R lymph nodes were removed. We continued our | | | dissection along the posterior hilum dividing the mediastinal | | | pleura up to the level of the azygos vein.The azygos vein was | | | dissected out circumferentially. It was divided with the Endo MARY | | | vascular load stapler as it crossed the esophagus. We then divided | | | the mediastinal pleura adjacent to the azygous vein. This was done | | | from the level of the divided azygos vein down to the diaphragm. We | | | turned our attention to the esophagus at the level of the inferior | | | pulmonary vein. Dissection was performed around the esophagus and | | | into the left pleural space. Tissue along the aorta and the | | | esophageal perforators from the aorta were taken with the Harmonic | | | scalpel. A Willoughby drain was placed around the esophagus for | | | retraction. The esophagus was mobilized exposing both the right and | | | left zohaib. We continued our dissection cephalad. The esophagus was | | | mobilized towards the thoracic inlet by dividing the periesophageal | | | tissue from the membranous airway. Above the level of the azygos | | | vein, we stayed close to the esophagus to prevent any injury to the | | | surrounding structures. We mobilized the esophagus all the way to | | | the thoracic inlet. The subcarinal lymph nodes were harvested and | | | sent separately. The thoracic duct was dissected out at the | | | level just above the inferior pulmonary vein and clipped. We | | | examined the operative field for hemostasis. We placed a 28-Montserratian | | | chest tube through the 7th intercostal incision and reinflated the | | | lung under direct vision. The posterior 8th intercostal port and the | | | anterior working incision were closed in multiple layers with | | | absorbable suture. Sterile dressings were applied. The | | | patient was placed in the supine position. The left chest was | | | prepped and draped in the standard surgical fashion. An incision | | | was made in the anterior axillary line just inferior to the left | | | nipple. Blunt dissection was carried down to the chest wall. | | | Ventilation was held, and a blunt Pean clamp was used to enter the | | | left pleural space. Finger palpation was used to ensure there | | | were no adhesions of the lung immediately adjacent to the chest | | | wall. The chest tube was inserted and advanced towards the apex. | | | The chest tube was secured in place. Sterile dressings were | | | applied. At this point, Dr Vicente and Dr Pal completed the | | | laparoscopic and the cervical portion of the operation. I was | | | present and scrubbed throughout the entirety of my portion of the | | | procedure. Dalton Wisdom M.D. FACS [employer] | | | of Surgery [facility] Division of | | | Cardiothoracic Surgery Section of Thoracic Surgery [address] [place] [address] | | | Mike Katherine , [address] [place] [address] Telephone: | | | [phone] | | + + + ABG-FULL ABL, POC (05/14/2018 1:44 PM PDT) + + + + + + | Component | Value | Ref Range | Performed | Pathologist | | | | | At | Signature | + + + + + + | PH | 7.41 | 7.37 - 7.44 | [facility] - | | | [facility], | | | [facility] | | | POC | | | [facility] | | | | | | OF C[facility] | | | | | | TESTS | | + + + + + + | PO2 | 264 (H) | 72 - 104 mmHg | [facility] - | | | [facility], | | | [facility] | | | POC | | | [facility] | | | | | | OF CARE | | | | | | TESTS | | + + + + + + | PCO2 | 39 | 32 - 43 mmHg | [facility] - | | | [facility], | | | [facility] | | | POC | | | [facility] | | | | | | OF CARE | | | | | | TESTS | | + + + + + + | TOTAL | 9.3 (L) | 13.5 - 17.5 | [facility] - | | | HEMOGLOBIN, | | g/dL | [facility] | | | POC | | | [facility] | | | | | | OF CARE | | | | | | TESTS | | + + + + + + | O2 SAT | 99.9 (H) | 92.0 - 98.0 % | [facility] - | | | [facility], | | | [facility] | | | POC | | | [facility] | | | | | | OF CARE | | | | | | TESTS | | + + + + + + | OXYHEMOGLOB | 98.1 | 94.0 - 100 % | [facility] - | | | IN, POC | | | [facility] | | | | | | [facility] | | | | | | OF CARE | | | | | | TESTS | | + + + + + + | HEMATOCRIT, | 28.6 (L) | 41.0 - 53.0 % | [facility] - | | | POC | | | [facility] | | | | | | [facility] | | | | | | OF CARE | | | | | | TESTS | | + + + + + + | POTASSIUM, | 4.6 | 3.4 - 5.0 | [facility] - | | | POC | | mmol/L | [facility] | | | | | | [facility] | | | | | | OF CARE | | | | | | TESTS | | + + + + + + | SODIUM, POC | 142 | 134 - 143 | [facility] - | | | | | mmol/L | [facility] | | | | | | [facility] | | | | | | OF CARE | | | | | | TESTS | | + + + + + + | DAVID | 1.16 | 1.14 - 1.32 | [facility] - | | | IONIZED CA, | | mmol/L | [facility] | | | POC | | | [facility] | | | | | | OF CARE | | | | | | TESTS | | + + + + + + | CHLORIDE, | 108 | 97 - 108 mmol/L | [facility] - | | | POC | | | [facility] | | | | | | [facility] | | | | | | OF CARE | | | | | | TESTS | | + + + + + + | GLUCOSE, | 196 (H) | 70 - 99 mg/dL | [facility] - | | | POC | | | [facility] | | | | | | [facility] | | | | | | OF CARE | | | | | | TESTS | | + + + + + + | HCO3 | 25.2 | 21 - 28 mmol/L | [facility] - | | | [facility], | | | [facility] | | | POC | | | [facility] | | | | | | OF CARE | | | | | | TESTS | | + + + + + + | BASE EXCESS | 0.6 | | [facility] - | | | [facility], | | | [facility] | | | POC | | | [facility] | | | | | | OF CARE | | | | | | TESTS | | + + + + + + | LACTATE | 1.5 | 0.5 - 1.6 | [facility] - | | | ARTERIAL, | | mmol/L | [facility] | | | POC | | | [facility] | | | | | | OF CARE | | | | | | TESTS | | + + + + + + | METHEMOGLOB | 0.7 | 0.0 - 1.9 % | [facility] - | | | IN, POC | | | [facility] | | | | | | [facility] | | | | | | OF CARE | | | | | | TESTS | | + + + + + + | PAT TEMP | 37.0 | | [facility] - | | | ART, POC | | | [facility] | | | | | | [facility] | | | | | | OF CARE | | | | | | TESTS | | + + + + + + + + | Specimen | + + | Blood - Blood | | (substance) | + + + + + + + | Performing | Address | City/State/Zipcode | Phone Number | | Organization | | | | + + + + + | [facility] | [address] | [place], [place] | | | [facility] | [facility] | [phone] | | | TESTS | | | | + + + + + PROCEDURE NOTE (05/14/2018 11:43 AM PDT) + + + | Narrative | Performed At | + + + | Chery Cabello PA-C 05/14/2018 11:46 AM BRIEF OPERATIVE NOTE | | | Procedure Date: 05/14/2018 Author: CHERY CABELLO PA-C | | | Attending Physician: Dalton Wisdom MD Assistants: Cherie Zamora MD; | | | Chery Cabello PA-C Preoperative Diagnosis: esophageal | | | adenocarcinoma Postoperative Diagnosis: esophageal adenocarcinoma | | | Procedure Performed: esophagoscopy, right thoracoscopic | | | mobilization of the esophagus, mediastinal lymph node dissection, | | | thoracic duct clip ligation Findings: diffuse pleural adhesions | | | Complications: none appreciated Specimens: Pathology: level 7, | | | 9R and 8L LNs Drains: bilateral 28 romanian chest tubes | | | Disposition: remains intubated for remainder of procedure with red | | | surgery | | + + + ABG-FULL ABL, POC (05/14/2018 11:10 AM PDT) + + + + + + | Component | Value | Ref Range | Performed | Pathologist | | | | | At | Signature | + + + + + + | PH | 7.32 (L) | 7.37 - 7.44 | [facility] - | | | [facility], | | | [facility] | | | POC | | | [facility] | | | | | | OF CARE | | | | | | TESTS | | + + + + + + | PO2 | 516 (H) | 72 - 104 mmHg | [facility] - | | | [facility], | | | [facility] | | | POC | | | [facility] | | | | | | OF CARE | | | | | | TESTS | | + + + + + + | PCO2 | 52 (H) | 32 - 43 mmHg | [facility] - | | | [facility], | | | [facility] | | | POC | | | [facility] | | | | | | OF CARE | | | | | | TESTS | | + + + + + + | TOTAL | 8.8 (L) | 13.5 - 17.5 | [facility] - | | | HEMOGLOBIN, | | g/dL | [facility] | | | POC | | | [facility] | | | | | | OF CARE | | | | | | TESTS | | + + + + + + | O2 SAT | 100.5 (H) | 92.0 - 98.0 % | [facility] - | | | ART[facility], | | | [facility] | | | POC | | | [facility] | | | | | | OF CARE | | | | | | TESTS | | + + + + + + | OXYHEMOGLOB | 98.5 | 94.0 - 100 % | [facility] - | | | IN, POC | | | [facility] | | | | | | [facility] | | | | | | OF CARE | | | | | | TESTS | | + + + + + + | HEMATOCRIT, | 26.9 (L) | 41.0 - 53.0 % | [facility] - | | | POC | | | [facility] | | | | | | [facility] | | | | | | [facility]ARE | | | | | | TESTS | | + + + + + + | POTASSIUM, | 4.2 | 3.4 - 5.0 | [facility] - | | | POC | | mmol/L | [facility] | | | | | | [facility] | | | | | | OF CARE | | | | | | TESTS | | + + + + + + | SODIUM, POC | 141 | 134 - 143 | [facility] - | | | | | mmol/L | [facility] | | | | | | [facility] | | | | | | OF CARE | | | | | | TESTS | | + + + + + + | DAVID | 1.22 | 1.14 - 1.32 | [facility] - | | | IONIZED CA, | | mmol/L | [facility] | | | POC | | | [facility] | | | | | | OF CARE | | | | | | TESTS | | + + + + + + | CHLORIDE, | 107 | 97 - 108 mmol/L | [facility] - | | | POC | | | [facility] | | | | | | [facility] | | | | | | OF CARE | | | | | | TESTS | | + + + + + + | GLUCOSE, | 161 (H) | 70 - 99 mg/dL | [facility] - | | | POC | | | [facility] | | | | | | [facility] | | | | | | OF CARE | | | | | | TESTS | | + + + + + + | HCO3 | 26.6 | 21 - 28 mmol/L | [facility] - | | | ARTERIAL, | | | [facility] | | | POC | | | [facility] | | | | | | OF CARE | | | | | | TESTS | | + + + + + + | BASE EXCESS | 0.6 | | [facility] - | | | ARTERIAL, | | | [facility] | | | POC | | | [facility] | | | | | | OF CARE | | | | | | TESTS | | + + + + + + | LACTATE | 0.9 | 0.5 - 1.6 | [facility] - | | | ARTERIAL, | | mmol/L | [facility] | | | POC | | | [facility] | | | | | | OF CARE | | | | | | TESTS | | + + + + + + | METHEMOGLOB | 0.9 | 0.0 - 1.9 % | [facility] - | | | IN, POC | | | [facility] | | | | | | [facility] | | | | | | OF CARE | | | | | | TESTS | | + + + + + + | PAT TEMP | 37.0 | | [facility] - | | | ART, POC | | | [facility] | | | | | | [facility] | | | | | | OF CARE | | | | | | TESTS | | + + + + + + + + | Specimen | + + | Blood - Blood | | (substance) | + + + + + + + | Performing | Address | City/State/Zipcode | Phone Number | | Organization | | | | + + + + + | [facility] | [address] | [place], [place] | | | [facility] | [address] | [address] | | | TESTS | | | | + + + + + SURGICAL PATHOLOGY (05/14/2018 9:17 AM PDT) + + + + + + | Component | Value | Ref Range | Performed | Pathologist | | | | | At | Signature | + + + + + + | Addendum 1 | This case is addended in | | [facility] | Addendum | | | order to report results | | DEPARTMENT | electronically | | | of Her2/enio | | OF | signed by | | | immunohistochemical | | PATHOLOGY | Renny Philip | | | studies. | | | MD Maria Elena on | | | Immunohistochemical | | | 05/22/2018 at | | | stains are performed on | | | 9:09 AM | | | formalin-fixed, paraffin | | | | | | embedded tissue, using | | | | | | a biotin-free protocol | | | | | | ([place] [employer]) that | | | | | | includes appropriate | | | | | | positive and negative | | | | | | controls. Stain (block | | | | | | #[id number]) | | | | | | ResultHER-2/enio | | | | | | (PATHWAYTMHer2 kit, 4B5) | | | | | | | | | | | | Negative (0) Ischemic | | | | | | time: Unknown.Formalin | | | | | | fixation time: ~24 hours | | | | | | (meets ASCO/CAP | | | | | | guidelines)Her-2/enio | | | | | | immunohistochemical | | | | | | staining is performed | | | | | | with PATHWAYTMHer2 kits | | | | | | from [employer] according | | | | | | to industrial garage servicer's | | | | | | instructions with | | | | | | appropriate controls. | | | | | | Inadequate specimens are | | | | | | not reported. [facility] | | | | | | participates in | | | | | | proficiency testing for | | | | | | gastric/GEJ Her-2/enio | | | | | | immunohistochemistry. | | | | | | Her-2/enio scoring and | | | | | | interpretation are per | | | | | | the criteria used in the | | | | | | ToGA trial for scoring | | | | | | HER2 expression by | | | | | | immunohistochemistry | | | | | | (IHC) in gastric and | | | | | | gastroesophageal | | | | | | junction adenocarcinoma: | | | | | | References: 1. Jaye | | | | | | M, Stoss O, Maddison D, | | | | | | Elif R, van Lloydjver | | | | | | M, Maryjo W, Domi A, | | | | | | Mikki J, Sami T | | | | | | (2007) Assessment of a | | | | | | HER2 scoring system for | | | | | | gastric cancer: results | | | | | | from a validation study. | | | | | | Histopathology 52(7): | | | | | | [phone]. Alexis Barker | | | | | | Kendall E, Jamie | | | | | | A, et al. 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 Lancet. | | | | | | 2009;376(5548):211-630.A | | | | | | nalyte specific reagents | | | | | | are used in many | | | | | | laboratory tests | | | | | | necessary for standard | | | | | | medical care. This test | | | | | | was developed and its | | | | | | performance | | | | | | characteristics | | | | | | determined by [facility] | | | | | | laboratories. It has | | | | | | not been cleared or | | | | | | approved by the US Food | | | | | | and Drug Administration | | | | | | (FDA). FDA does not | | | | | | require this test to go | | | | | | through premarket FDA | | | | | | review. This test is | | | | | | used for clinical | | | | | | purposes. It should not | | | | | | be regarded as | | | | | | investigational or for | | | | | | research. This | | | | | | laboratory is certified | | | | | | under the Clinical | | | | | | Laboratory Improvement | | | | | | Amendments (CLIA) as | | | | | | qualified to perform | | | | | | high complexity clinical | | | | | | laboratory | | | | | | testing.Addendum seen | | | | | | by:Renny Arredondo, | | | | | | Axel/Pathologist | | | | + + + + + + | Clinical | Per requisition: | | [facility] | | | History | esophageal cancer (not | | DEPARTMENT | | | | reviewed at [facility]). Per | | OF | | | | EHR: adenocarcinoma, | | PATHOLOGY | | | | status post treatment. | | | | + + + + + + | Final | A. 9R lymph node, | | [facility] | Electronically | | Pathologic | biopsy: One lymph | | DEPARTMENT | signed by | | Diagnosis | node, negative for | | OF | John W | | | malignancy (0)B. 10R | | PATHOLOGY | MD Belle,PhD | | | lymph node, | | | on 05/19/2018 at | | | dissection: Two lymph | | | 12:31 PM | | | nodes, negative for | | | | | | malignancy (0/2)C. 8L | | | | | | lymph node, | | | | | | dissection: One lymph | | | | | | node, negative for | | | | | | malignancy (0/1)D. Level | | | | | | 7 lymph node, | | | | | | dissection: Two lymph | | | | | | nodes, negative for | | | | | | malignancy (0/2)E. | | | | | | Distal margin, | | | | | | excision: Portion of | | | | | | stomach, negative for | | | | | | malignancy F. Proximal | | | | | | margin, excision: | | | | | | Portion of esophagus, | | | | | | negative for | | | | | | malignancyG. 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 Margins negative | | | | | | for dysplasia or | | | | | | malignancy Metastatic | | | | | | carcinoma in four of | | | | | | fourteen lymph nodes | | | | | | (03/09), see comment | | | | | | AJCC pathologic stage | | | | | | (8th edition): ypT3 N2H. | | | | | | Additional fundus of | | | | | | stomach, resection: | | | | | | Portion of stomach with | | | | | | no diagnostic | | | | | | abnormalityComment: The | | | | | | positive lymph nodes in | | | | | | specimen G have been | | | | | | entirely replaced by | | | | | | metastatic carcinoma. | | | | | | Her2/enio studies will be | | | | | | performed on specimen G | | | | | | and reported in an | | | | | | addendum. Case seen | | | | | | by:Pamela Camara MD, PhD | | | | | | | | | | | | Surgical Pathology | | | | | | FellowPhilipjavy Odonnell, | | | | | | , PhD | | | | | | | | | | | | PathologistMy | | | | | | electronic signature | | | | | | indicates that I have | | | | | | personally reviewed all | | | | | | diagnostic slides, the | | | | | | gross and/or microscopic | | | | | | portion of this report | | | | | | and formulated the final | | | | | | diagnosis. | | | | + + + + + + | SYNOPTIC | ESOPHAGUS (Esophagus - | | [facility] | | | REPORTS | All Specimens) | | DEPARTMENT | | | | SPECIMEN Procedure: | | OF | | | | Esophagogastrectomy | | PATHOLOGY | | | | TUMOR Tumor Site: | | | | | | Esophagogastric | | | | | | junction (EGJ) | | | | | | Relationship of Tumor to | | | | | | Esophagogastric | | | | | | Junction: Tumor | | | | | | midpoint is located at | | | | | | the esophagogastric | | | | | | junction Histologic | | | | | | Type: | | | | | | Adenocarcinoma | | | | | | Histologic Grade: | | | | | | G3: Poorly | | | | | | differentiated, | | | | | | undifferentiated | | | | | | Tumor Size: | | | | | | Greatest dimension in | | | | | | Centimeters (cm): at | | | | | | least 5 cm Centimeters | | | | | | (cm) Tumor Extent | | | | | | (Note E): | | | | | | Tumor Extension: | | | | | | Tumor invades | | | | | | adventitia Accessory | | | | | | Findings: | | | | | | Treatment Effect: | | | | | | Absent : | | | | | | Extensive residual | | | | | | cancer with no evident | | | | | | tumor regression (poor | | | | | | or no response, score 3) | | | | | | Lymphovascular | | | | | | Invasion: Present | | | | | | Perineural | | | | | | Invasion: Present | | | | | | MARGINS Margins: | | | | | | Proximal | | | | | | Margin: Uninvolved | | | | | | by invasive carcinoma | | | | | | Status of | | | | | | Dysplasia at Proximal | | | | | | Margin: Uninvolved | | | | | | by dysplasia | | | | | | Distal Margin: | | | | | | Uninvolved by invasive | | | | | | carcinoma | | | | | | Status of Dysplasia at | | | | | | Distal Margin: | | | | | | Uninvolved by | | | | | | dysplasia Radial | | | | | | Margin: Uninvolved | | | | | | by invasive carcinoma | | | | | | : Other | | | | | | Margin: radial | | | | | | Margin Status: | | | | | | Uninvolved by invasive | | | | | | carcinoma LYMPH NODES | | | | | | Number of Lymph Nodes | | | | | | Involved: 4 Number | | | | | | of Lymph Nodes | | | | | | Examined: 20 | | | | | | PATHOLOGIC STAGE | | | | | | CLASSIFICATION (pTNM, | | | | | | AJCC 8th Edition) TNM | | | | | | Descriptors: y | | | | | | (post-treatment) | | | | | | Primary Tumor (pT): | | | | | | pT3 Regional Lymph | | | | | | Nodes (pN): pN2 | | | | | | ADDITIONAL FINDINGS | | | | | | Additional Pathologic | | | | | | Findings: | | | | | | 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 | | | | | | Chest, 9R lymph node: | | | | | | Received labeled "9R | | | | | | lymph node | | | | | | | | | | | | A" is a 0.7 x 0.6 x 0.4 | | | | | | cm fragment of | | | | | | anthracotic soft tissue. | | | | | | The specimen is | | | | | | bisected and entirely | | | | | | submitted in A1.B. | | | | | | Chest, 10R lymph node: | | | | | | Received labeled "10 R | | | | | | lymph node | | | | | | | | | | | | B" are 2 anthracotic | | | | | | soft tissue fragments | | | | | | consistent with lymph | | | | | | nodes measuring 1.1 and | | | | | | 1.4 cm. The largest node | | | | | | is trisected and the | | | | | | smaller node bisected. | | | | | | Entirely submitted as | | | | | | follows:B1, largest node | | | | | | trisectedB2, smaller | | | | | | node bisectedC. Chest, | | | | | | 8L lymph node: Received | | | | | | labeled "8L lymph node | | | | | | | | | | | | C" is a single | | | | | | anthracotic soft tissue | | | | | | fragment measuring 1 x | | | | | | 0.5 x 0.4 cm. The | | | | | | specimen is bivalved to | | | | | | reveal a 0.3 cm possible | | | | | | lymph node. Entirely | | | | | | submitted in C1.D. | | | | | | Chest, Level 7 lymph | | | | | | node: Received labeled | | | | | | "level VII lymph node | | | | | | | | | | | | D" "are 2 anthracotic | | | | | | soft tissue fragments | | | | | | consistent with lymph | | | | | | nodes measuring 1.0 and | | | | | | 2.5 cm in dimension. | | | | | | Specimen is entirely | | | | | | submitted as | | | | | | follows:D1-D2, largest | | | | | | node serially | | | | | | sectionedD3, smaller | | | | | | node bisectedE. | | | | | | Abdominal, Distal | | | | | | margin: Received fresh | | | | | | for intraoperative | | | | | | consultation labeled | | | | | | "distal margin | | | | | | | | | | | | E" is a 2.5 x 0.9 x 0.8 | | | | | | cm portion of soft | | | | | | tissue with a single | | | | | | stapled margin and | | | | | | stitch on new margin. | | | | | | The margin is inked | | | | | | black and the specimen | | | | | | is entirely submitted en | | | | | | face for frozen section | | | | | | and then routine | | | | | | histology in E1.F. | | | | | | Abdominal, Proximal | | | | | | margin: Received fresh | | | | | | for intraoperative | | | | | | consultation labeled | | | | | | "proximal margin | | | | | | | | | | | | F" is a 1.0 x 1.9 cm | | | | | | pink | | | | | | | | | | | | oropeza mucosal doughnut. | | | | | | The specimen is entirely | | | | | | submitted intact for | | | | | | frozen section and then | | | | | | routine histology in | | | | | | F1.G. Abdominal, | | | | | | Esophagus and stomach: | | | | | | Received labeled | | | | | | "esophagus and stomach | | | | | | | | | | | | G" is an | | | | | | esophagogastrectomy | | | | | | specimen comprised of | | | | | | esophagus (13 L by 2.4D | | | | | | cm) and stomach (16.5 x | | | | | | 5 x 3.5 cm.) Specimen is | | | | | | received with a opened | | | | | | proximal margin and 15 | | | | | | cm in length stapled | | | | | | distal margin. A | | | | | | moderate amount of | | | | | | attached soft tissue is | | | | | | present. The specimen | | | | | | is longitudinally opened | | | | | | to reveal an | | | | | | ill-defined area of | | | | | | induration located at | | | | | | the GE junction | | | | | | measuring approximately | | | | | | 3.7 x 2.8 cm. The | | | | | | overlying soft tissue | | | | | | and serosa is inked | | | | | | black. The area of | | | | | | induration measures | | | | | | approximately 11.5 cm to | | | | | | the proximal opened | | | | | | esophageal margin and | | | | | | approximately 2.5 cm the | | | | | | staple distal gastric | | | | | | margin(inked green). | | | | | | Sectioning through the | | | | | | focus of induration | | | | | | reveals a white oropeza | | | | | | fibrous cut surface, | | | | | | tumor is not grossly | | | | | | identified. Noted | | | | | | directly distal to the | | | | | | area of induration is a | | | | | | 2.2 x 2.0 cm | | | | | | erythematous nodular | | | | | | portion of gastric | | | | | | mucosa. Sectioning is | | | | | | unremarkable. The | | | | | | uninvolved esophagus is | | | | | | white | | | | | | | | | | | | oropeaz, glistening with 2 | | | | | | foci of hemorrhage, each | | | | | | measuring 0.3 cm. The | | | | | | uninvolved gastric | | | | | | mucosa is pink | | | | | | | | | | | | oropeza, nodular with no | | | | | | discrete lesions | | | | | | identified. Upon gross | | | | | | dissection of the | | | | | | attached soft tissue | | | | | | multiple possible lymph | | | | | | nodes are identified | | | | | | measuring up to 1.3 cm. | | | | | | Every other slice at the | | | | | | GE junction is | | | | | | submitted. A section is | | | | | | submitted for research | | | | | | studies.Coil Winder Hand | | | | | | sections as follows:G1, | | | | | | proximal esophageal | | | | | | margin en faceG2 | | | | | | | | | | | | G3, call center representative | | | | | | closest distal gastric | | | | | | margin perpendicularG4 | | | | | | | | | | | | G13, every other slice | | | | | | of GE junction (G6 and | | | | | | G7, G8 G9, G11 and G12 | | | | | | composite sections with | | | | | | orange representing | | | | | | connecting tissue)G14, | | | | | | [id number] | | | | | | | | | | | | G16, nodular gastric | | | | | | mucosa directly distal | | | | | | to GE onopouekQ82, | | | | | | nodular gastric | | | | | | erwlocA20, 2 possible | | | | | | nodes each bisected and | | | | | | differentially inked | | | | | | (esophagus)G19, 4 | | | | | | possible nodes intact | | | | | | (esophagus)G20, one | | | | | | possible node bisected | | | | | | (greater dbsgfttmfW31, 5 | | | | | | possible nodes intact | | | | | | (greater curvature)G22 | | | | | | | | | | | | G23, soft tissue | | | | | | (esophagus)H. Abdominal, | | | | | | Additional fundus of | | | | | | stomach: Received | | | | | | labeled "additional | | | | | | fundus of stomach | | | | | | | | | | | | H" is a portion of pink | | | | | | oropeza mucosal soft tissue | | | | | | measuring 3.5 x 4.5 x | | | | | | 2.5 cm. Orientation is | | | | | | not provided. 2 staple | | | | | | lines are noted | | | | | | measuring 4.0 and 4.5 cm | | | | | | in length. The staple | | | | | | lines are differentially | | | | | | inked blue and green | | | | | | respectively. The lumen | | | | | | contains a moderate | | | | | | amounts pale-oropeza mucoid | | | | | | material. The mucosa is | | | | | | pink-oropeza well folded | | | | | | with no discrete lesions | | | | | | identified. The | | | | | | specimen is entirely | | | | | | submitted in H1 | | | | | | | | | | | | H8.rml | | | | + + + + + + | Intraoperat | Frozen section | | [facility] | | | gentry use | diagnosis: E1. | | DEPARTMENT | | | only - | Abdominal. Distal | | OF | | | Final | margin: Negative for | | PATHOLOGY | | | diagnosis | malignancy and | | | | | listed | dysplasiaFrozen section | | | | | separately | pathologist(s): Reagan | | | | | | MD Aime | | | | | | | | | | | | Pathology Resident, Ruben | | | | | | Judd Diallo | | | | | | /Pathologist Frozen | | | | | | section diagnosis: F1. | | | | | | Abdominal. Proximal | | | | | | margin: negative for | | | | | | malilgnancyFrozen | | | | | | section pathologist(s): | | | | | | Reagan Salomon MD | | | | | | | | | | | | Pathology Ruben Grewal | | | | | | Judd Diallo, | | | | | | /Yanni | | | | + + + + + + | Ancillary | Analyte specific | | [facility] | | | Information | reagents are used in | | DEPARTMENT | | | | many laboratory tests | | OF | | | | necessary for standard | | PATHOLOGY | | | | medical care. This test | | | | | | was developed and its | | | | | | performance | | | | | | characteristics | | | | | | determined by [facility] | | | | | | laboratories. It has | | | | | | not been cleared or | | | | | | approved by the US Food | | | | | | and Drug Administration | | | | | | (FDA). FDA does not | | | | | | require this test to go | | | | | | through premarket FDA | | | | | | review. This test is | | | | | | used for clinical | | | | | | purposes. It should not | | | | | | be regarded as | | | | | | investigational or for | | | | | | research. This | | | | | | laboratory is certified | | | | | | under the Clinical | | | | | | Laboratory Improvement | | | | | | Amendments (CLIA) as | | | | | | qualified to perform | | | | | | high complexity clinical | | | | | | laboratory testing. | | | | + + + + + + + + | Specimen | + + | Tissue - Thoracic | | structure (body | | structure) | + + | Tissue - Thoracic | | structure (body | | structure) | + + | Tissue - Thoracic | | structure (body | | structure) | + + | Tissue - Thoracic | | structure (body | | structure) | + + | Tissue - Ectopic | | ureter (disorder) | + + | Tissue - Ectopic | | ureter (disorder) | + + | Tissue - Ectopic | | ureter (disorder) | + + | Tissue - Ectopic | | ureter (disorder) | + + + + + + + | Performing | Address | City/State/Zipcode | Phone Number | | Organization | | | | + + + + + | [facility] DEPARTMENT | [address] | [place] [address] | | | PATHOLOGY | [address] | | | + + + + + ABG-FULL ABL POC (05/14/2018 8:12 AM PDT) + + + + + + | Component | Value | Ref Range | Performed | Pathologist | | | | | At | Signature | + + + + + + | PH | 7.46 (H) | 7.37 - 7.44 | [facility] - | | | ARTERIAL, | | | [facility] | | | POC | | | [facility] | | | | | | OF CARE | | | | | | TESTS | | + + + + + + | PO2 | 508 (H) | 72 - 104 mmHg | [facility] - | | | ARTERIAL, | | | [facility] | | | POC | | | [facility] | | | | | | OF CARE | | | | | | TESTS | | + + + + + + | PCO2 | 34 | 32 - 43 mmHg | [facility] - | | | ARTERIAL, | | | [facility] | | | POC | | | [facility] | | | | | | OF CARE | | | | | | TESTS | | + + + + + + | TOTAL | 8.8 (L) | 13.5 - 17.5 | [facility] - | | | HEMOGLOBIN, | | g/dL | [facility] | | | POC | | | [facility] | | | | | | OF CARE | | | | | | TESTS | | + + + + + + | O2 SAT | 100.5 (H) | 92.0 - 98.0 % | [facility] - | | | ARTERIAL, | | | [facility] | | | POC | | | [facility] | | | | | | OF CARE | | | | | | TESTS | | + + + + + + | OXYHEMOGLOB | 98.5 | 94.0 - 100 % | [facility] - | | | IN, POC | | | [facility] | | | | | | [facility] | | | | | | OF CARE | | | | | | TESTS | | + + + + + + | HEMATOCRIT, | 26.9 (L) | 41.0 - 53.0 % | [facility] - | | | POC | | | [facility] | | | | | | [facility] | | | | | | OF CARE | | | | | | TESTS | | + + + + + + | POTASSIUM, | 3.5 | 3.4 - 5.0 | [facility] - | | | POC | | mmol/L | [facility] | | | | | | [facility] | | | | | | OF CARE | | | | | | TESTS | | + + + + + + | SODIUM, POC | 140 | 134 - 143 | [facility] - | | | | | mmol/L | [facility] | | | | | | [facility] | | | | | | OF CARE | | | | | | TESTS | | + + + + + + | DAVID | 1.23 | 1.14 - 1.32 | [facility] - | | | IONIZED CA, | | mmol/L | [facility] | | | POC | | | [facility] | | | | | | OF CARE | | | | | | TESTS | | + + + + + + | CHLORIDE, | 107 | 97 - 108 mmol/L | [facility] - | | | POC | | | [facility] | | | | | | [facility] | | | | | | OF CARE | | | | | | TESTS | | + + + + + + | GLUCOSE, | 99 | 70 - 99 mg/dL | [facility] - | | | POC | | | [facility] | | | | | | [facility] | | | | | | OF CARE | | | | | | TESTS | | + + + + + + | HCO3 | 24.3 | 21 - 28 mmol/L | [facility] - | | | ARTERIAL, | | | [facility] | | | POC | | | [facility] | | | | | | OF CARE | | | | | | TESTS | | + + + + + + | BASE EXCESS | 0.5 | | [facility] - | | | ARTERIAL, | | | [facility] | | | POC | | | [facility] | | | | | | OF CARE | | | | | | TESTS | | + + + + + + | LACTATE | 0.9 | 0.5 - 1.6 | [facility] - | | | ARTERIAL, | | mmol/L | [facility] | | | POC | | | [facility] | | | | | | OF CARE | | | | | | TESTS | | + + + + + + | METHEMOGLOB | 0.9 | 0.0 - 1.9 % | [facility] - | | | IN, POC | | | [facility] | | | | | | [facility] | | | | | | OF CARE | | | | | | TESTS | | + + + + + + | PAT TEMP | 37.0 | | [facility] - | | | ART, POC | | | [facility] | | | | | | [place] | | | | | | OF CARE | | | | | | TESTS | | + + + + + + + + | Specimen | + + | Blood - Blood | | (substance) | + + + + + + + | Performing | Address | City/State/Zipcode | Phone Number | | Organization | | | | + + + + + | [facility] | [address] | [place], [place] | | | [facility] | [address] | [address] | | | TESTS | | | | + + + + + CAPILLARY BLOOD GLUCOSE (NO CHG), POC (05/14/2018 6:30 AM PDT) + +---------+ + + + | Component | Value | Ref Range | Performed | Pathologist | | | | | At | Signature | + +---------+ + + + | BLOOD | 103 (H) | 70 - 99 mg/dL | [facility] - | | | GLUCOSE, | | | [facility] | | | POC | | | [place] | | | | | | OF CARE | | | | | | TESTS | | + +---------+ + + + + + | Specimen | + + | | + + + + + + + | Performing | Address | City/State/Zipcode | Phone Number | | Organization | | | | + + + + + | [facility] | [address] | [place], [place] | | | [facility] | [address] | [address] | | | TESTS | | | | + + + + + INTRAPROCEDURE IMAGING (05/14/2018 6:08 AM PDT) + + | Specimen | + + | | + + + + + | Narrative | Performed At | + + + | See admission or procedure notes for details of any intraprocedure | | | images obtained. | | + + + documented in this encounter Visit Diagnoses Not on filedocumented in this encounter Administered Medications + +--------+ + +------+------+ | Medication Order | MAR | Action | Dose | Rate | Site | | | Action | Date | | | | + +--------+ + +------+------+ | acetaminophen (TYLENOL) oral | Given | 05/22/20 | 1,000 mg | | | | suspension 1,000 mg 1,000 mg, | | 18 6:27 | | | | | oral, EVERY 8 HOURS, First dose | | AM PDT | | | | | on 05/20/18 at 1400, Until | | | | | | | Discontinued | | | | | | + +--------+ + +------+------+ +-------+ + +---+---+ | Given | 05/21/20 | 1,000 mg | | | | | 18 10:02 | | | | | | PM PDT | | | | +-------+ + +---+---+ | Given | 05/21/20 | 1,000 mg | | | | | 18 2:13 | | | | | | PM PDT | | | | +-------+ + +---+---+ +---+---+ | | | +---+---+ + +-------+ +-------+---+---+ | aspirin chewable tablet 81 mg | Given | 05/22/20 | 81 mg | | | | 81 mg, feeding tube, DAILY, First | | 18 8:27 | | | | | dose on Sun05/15/18 at 1345, | | AM PDT | | | | | Until Discontinued | | | | | | + +-------+ +-------+---+---+ +-------+ +-------+---+---+ | Given | 05/21/20 | 81 mg | | | | | 18 9:06 | | | | | | AM PDT | | | | +-------+ +-------+---+---+ | Given | 05/20/20 | 81 mg | | | | | 18 8:33 | | | | | | AM PDT | | | | +-------+ +-------+---+---+ + +---+ | | | + +---+ | bisacodyl (DULCOLAX) | | | suppository 10 mg 10 mg, rectal, | | | DAILY NEEDED, Starting Sat | | | 05/18/18 at 0930, Until Wed | | | 05/22/18 at 2000, constipation | | + +---+ | | | + +---+ + +-------+ +-------+---+ + | bupivacaine | Given | 05/14/20 | 10 mL | | Surgical | | (MARCAINE,SENSORCAINE) 0.25 % | | 18 2:11 | | | Site | | (2.5 mg/mL) injection | | PM PDT | | | | | INTRAPROCEDURE PRN, Starting Tue | | | | | | | 05/14/18 at 0900, Until Tue | | | | | | | 05/14/18 at 1712 | | | | | | + +-------+ +-------+---+ + +-------+ +-------+---+ + | Given | 06/19/20 | 12 mL | | Surgical | | | 18 12:40 | | | Site | | | PM PDT | | | | +-------+ +-------+---+ + | Given | 05/14/20 | 5 mL | | Surgical | | | 18 11:34 | | | Site | | | AM PDT | | | | +-------+ +-------+---+ + +---+---+ | | | +---+---+ + +-------+ +-------+---+---------+ | enoxaparin (LOVENOX) injection | Given | 05/21/20 | 40 mg | | Abdomen | | 40 mg 40 mg, subcutaneous, EVERY | | 18 8:37 | | | | | EVENING, First dose on Sun | | PM PDT | | | | | 05/15/18 at 2100, Until | | | | | | | Discontinued | | | | | | + +-------+ +-------+---+---------+ +-------+ +-------+---+---------+ | Given | 05/20/20 | 40 mg | | Abdomen | | | 18 8:23 | | | | | | PM PDT | | | | +-------+ +-------+---+---------+ | Given | 05/19/20 | 40 mg | | Abdomen | | | 18 8:51 | | | | | | PM PDT | | | | +-------+ +-------+---+---------+ +---+---+ | | | +---+---+ + +-------+ +--------+---+---+ | gabapentin (NEURONTIN) liquid | Given | 05/22/20 | 100 mg | | | | 100 mg 100 mg, feeding tube, | | 18 8:26 | | | | | THREE TIMES DAILY, First dose on | | AM PDT | | | | | 05/21/18 at 0900, Until | | | | | | | Discontinued | | | | | | + +-------+ +--------+---+---+ +-------+ +--------+---+---+ | Given | 05/21/20 | 100 mg | | | | | 18 10:02 | | | | | | PM PDT | | | | +-------+ +--------+---+---+ | Given | 05/21/20 | 100 mg | | | | | 18 4:43 | | | | | | PM PDT | | | | +-------+ +--------+---+---+ +---+---+ | | | +---+---+ + + + +---------+---+---------+ | lidocaine (LIDODERM) 5 % patch | Applied | 05/21/20 | 1 patch | | Abdomen | | 1 patch 1 patch, transdermal, | Patch | 18 8:37 | | | | | EVERY 24 HOURS, First dose on Mon | | PM PDT | | | | | 05/20/18 at 1630, Until | | | | | | | Discontinued | | | | | | + + + +---------+---+---------+ + + +---------+---+---------+ | Applied Patch | 05/20/20 | 1 patch | | Abdomen | | | 18 4:32 | | | | | | PM PDT | | | | + + +---------+---+---------+ +---+---+ | | | +---+---+ + +-------+ +--------+---+---+ | LORazepam (ATIVAN) liquid 0.5 | Given | 05/21/20 | 0.5 mg | | | | mg 0.5 mg, feeding tube, EVERY 8 | | 18 10:02 | | | | | HOURS NEEDED, Starting Mon | | PM PDT | | | | | 05/20/18 at 1555, Until Wed | | | | | | | 05/22/18 at 2000, anxiety, | | | | | | | insomnia | | | | | | + +-------+ +--------+---+---+ +-------+ +--------+---+---+ | Given | 05/21/20 | 0.5 mg | | | | | 18 12:44 | | | | | | PM PDT | | | | +-------+ +--------+---+---+ | Given | 05/20/20 | 0.5 mg | | | | | 18 11:50 | | | | | | PM PDT | | | | +-------+ +--------+---+---+ +---+---+ | | | +---+---+ + +-------+ +------+---+---+ | melatonin tablet 3 mg 3 mg, | Given | 05/21/20 | 3 mg | | | | feeding tube, EVERY EVENING, | | 18 10:02 | | | | | First dose on Sun05/15/18 at | | PM PDT | | | | | 2100, Until Discontinued | | | | | | + +-------+ +------+---+---+ +-------+ +------+---+---+ | Given | 05/20/20 | 3 mg | | | | | 18 11:49 | | | | | | PM PDT | | | | +-------+ +------+---+---+ | Given | 05/19/20 | 3 mg | | | | | 18 9:31 | | | | | | PM PDT | | | | +-------+ +------+---+---+ +---+---+ | | | +---+---+ + +-------+ +-------+---+ + | metheylene blue-NS injection | Given | 05/14/20 | 90 mL | | Surgical | | INTRAPROCEDURE PRN, Starting e | | 18 4:15 | | | Site | | 05/14/18 at 1615, Until Tue | | PM PDT | | | | | 05/14/18 at 1712 | | | | | | + +-------+ +-------+---+ + +---+---+ | | | +---+---+ + +-------+ +-------+---+---+ | metoclopramide HCl (REGLAN) | Given | 05/22/20 | 10 mg | | | | liquid 10 mg 10 mg, feeding | | 18 11:42 | | | | | tube, THREE TIMES DAILY BEFORE | | AM PDT | | | | | MEALS, First dose on Sun05/14/18 | | | | | | | at 1745, Until Discontinued | | | | | | + +-------+ +-------+---+---+ +-------+ +-------+---+---+ | Given | 05/22/20 | 10 mg | | | | | 18 6:27 | | | | | | AM PDT | | | | +-------+ +-------+---+---+ | Given | 05/21/20 | 10 mg | | | | | 18 4:43 | | | | | | PM PDT | | | | +-------+ +-------+---+---+ +---+---+ | | | +---+---+ + +-------+ + +---+---+ | multivitamin-iron (ONE DAILY | Given | 05/22/20 | 1 tablet | | | | with IRON) tablet 1 tablet 1 | | 18 8:27 | | | | | tablet, feeding tube, DAILY, | | AM PDT | | | | | First dose (after last | | | | | | | modification) on [facility] 05/16/18 at | | | | | | | 1130, Until Discontinued | | | | | | + +-------+ + +---+---+ +-------+ + +---+---+ | Given | 05/21/20 | 1 tablet | | | | | 18 9:06 | | | | | | AM PDT | | | | +-------+ + +---+---+ | Given | 05/20/20 | 1 tablet | | | | | 18 8:33 | | | | | | AM PDT | | | | +-------+ + +---+---+ +---+---+ | | | +---+---+ + +-------+ +-------+---+---+ | omeprazole (PRILOSEC) oral | Given | 05/22/20 | 40 mg | | | | suspension (compound) 40 mg 40 | | 18 6:27 | | | | | mg, feeding tube, BEFORE | | AM PDT | | | | | BREAKFAST, First dose on Fri | | | | | | | 05/17/18 at 0630, Until | | | | | | | Discontinued | | | | | | + +-------+ +-------+---+---+ +-------+ +-------+---+---+ | Given | 05/21/20 | 40 mg | | | | | 18 9:05 | | | | | | AM PDT | | | | +-------+ +-------+---+---+ | Given | 05/20/20 | 40 mg | | | | | 18 5:21 | | | | | | AM PDT | | | | +-------+ +-------+---+---+ + +---+ | | | + +---+ | ondansetron (ZOFRAN) tablet 4 | | | mg 4 mg, feeding tube, EVERY 8 | | | HOURS NEEDED, Starting Mon | | | 05/20/18 at 1504, Until Wed | | | 05/22/18 at 2001, nausea/vomiting, | | | first line | | + +---+ | | | + +---+ + +-------+ +------+---+---+ | oxyCODONE (immediate release) | Given | 05/22/20 | 5 mg | | | | (ROXICODONE) liquid 5-10 mg 5-10 | | 18 6:27 | | | | | mg, feeding tube, EVERY 3 HOURS | | AM PDT | | | | | NEEDED, Starting 05/20/18 | | | | | | | at 1600, Until Sun05/22/18 at | | | | | | | 2000, severe pain | | | | | | + +-------+ +------+---+---+ +-------+ +------+---+---+ | Given | 05/22/20 | 5 mg | | | | | 18 2:17 | | | | | | AM PDT | | | | +-------+ +------+---+---+ | Given | 05/21/20 | 5 mg | | | | | 18 8:36 | | | | | | PM PDT | | | | +-------+ +------+---+---+ +---+---+ | | | +---+---+ + +-------+ +-------+---+---+ | pravastatin (PRAVACHOL) tablet | Given | 05/21/20 | 20 mg | | | | 20 mg 20 mg, feeding tube, EVERY | | 18 8:37 | | | | | EVENING, First dose on Sun | | PM PDT | | | | | 05/15/18 at 2100, Until | | | | | | | Discontinued | | | | | | + +-------+ +-------+---+---+ +-------+ +-------+---+---+ | Given | 05/20/20 | 20 mg | | | | | 18 8:23 | | | | | | PM PDT | | | | +-------+ +-------+---+---+ | Given | 05/19/20 | 20 mg | | | | | 18 8:52 | | | | | | PM PDT | | | | +-------+ +-------+---+---+ +---+---+ | | | +---+---+ + +-------+ +-------+---+---+ | propranolol (INDERAL) liquid 30 | Given | 05/22/20 | 30 mg | | | | mg 30 mg, oral, TWICE DAILY, | | 18 8:26 | | | | | First dose on [facility] 05/16/18 at | | AM PDT | | | | | 1030, Until Discontinued | | | | | | + +-------+ +-------+---+---+ +-------+ +-------+---+---+ | Given | 05/21/20 | 30 mg | | | | | 18 10:10 | | | | | | PM PDT | | | | +-------+ +-------+---+---+ | Given | 05/21/20 | 30 mg | | | | | 18 9:06 | | | | | | AM PDT | | | | +-------+ +-------+---+---+ +---+---+ | | | +---+---+ + +-------+ +---+---+---+ | saliva substitute (MOUTH KOTE) | Given | 05/16/20 | | | | | spray oral, NEEDED, Starting | | 18 7:12 | | | | | [facility] 05/16/18 at 1104, Until Wed | | PM PDT | | | | | 05/22/18 at 2000, dry mouth | | | | | | + +-------+ +---+---+---+ +-------+ +---+---+---+ | Given | 05/16/20 | | | | | | 18 4:54 | | | | | | PM PDT | | | | +-------+ +---+---+---+ +---+---+ | | | +---+---+ + +-------+ +--------+---+---+ | senna (SENOKOT) liquid 8.8 mg | Given | 05/21/20 | 8.8 mg | | | | 8.8 mg (5 mL), oral, DAILY | | 18 8:37 | | | | | NEEDED, Starting Sun05/21/18 at | | PM PDT | | | | | 1801, Until Sun05/22/18 at 2000, | | | | | | | constipation | | | | | | + +-------+ +--------+---+---+ +---+---+ | | | +---+---+ documented in this encounter
--- OUTSIDE RECORDS SUMMARY | ~2019-11-23 | XMS | Encounter Summary ---
Demographics + + + | Address | [address] | | | [place] [address] | + + + | Home Phone [...] Team Providers + +------+ + | Care Long Distance Operator Name | Role | Phone | + +------+ + | Christos Olivarez MD | PCP | | + +------+ + Reason for Visit + + + | Reason | Comments | + + + | Immunotherapy | Nivolumab/ PLacebo INV | + + + Encounter Details +--------+ + + + + | Date | Type | Department | Care Team | Description | +--------+ + + + + | 10/28/ | Hospital | Hematology/Medical | [address] | | | 2018 | Encounter | Oncology at [facility] | [address] [place], | | | | | [address] | [place] [address] | | | | | Mailcode: [place] | | | | | | [facility] | | | | | | Healing, [address] | | | | | | [place], [place] | | | | | | [address] | | | | | | [phone] | | | +--------+ + + + [...] documented as of this encounter Progress Notes Monica Aguirre RN - 10/28/2018 9:16 AM PSTChemotherapy Nurse Note Name: Jacob Sapp Date: 10/28/2018 Physician: Agusto Allergies: Jacob is allergic to codeine. Diagnosis: Malignant Neoplasm of lower third of esophagus Significant Other: family Nursing Assessment: Fever: no; Diarrhea:No Constipation: No SOB / Cough: no; Rash: no Edema: no; Mucositis: no; Urinary: no; Neuropathy: no; S/S Bleeding: no; Severity (1=Not at all, 2=A little, 3=Quite a bit, 4=Very much) Nausea and/or Vomitin Fatigue: 2 Pain: Denies Narrative: Patient here for INV Nivolumab/ Placebo. PIV placed and labs drawn in starter appointment. Labs within treatment. Positive blood ret urn on IV line prior and after infusion. Medication infused with 250ml NS sidearm bag. Pt tolerated without incident. PIV d/c'd and intact. Pt Alert & Oriented x3, No acute distre ss, Mood & affect appropriate and Recent & remote memory intact and discharged with family/d river, ambulatory and instructions have been provided. Refer to MAR and Onc Lines and [...] 240 mg in | New Bag | 10/28/20 | 240 mg | 120 | | | INV NaCl 0.9% IV 240 mg, | | 18 12:11 | | mL/hr | | | intravenous, Administer over 30 | | PM PST | | | | | Minutes, ONCE, 1 dose, Mon | | | | | | | 10/28/18 at 1145, Pt ID: , | | | | | | | Administer using a 0.2 micron | | | | | | | filter. Flush line with 15-20 mL | | | | | | | of normal saline. For | | | | | | | investigational use only, HIGH | | | | | | | ALERT MEDICATION IRB:[id number], | | | | | | | Protocol:[id number], Infuse using | | | | | | | 0.2 micron filter., | | | | | | + +---------+ +--------+-------+------+ +---+---+ | | | +---+---+ documented in this encounter"
--- OUTSIDE RECORDS SUMMARY | ~2019-11-23 | XMS | Encounter Summary ---
Demographics + + + | Address | [address] | | | [place] [address] | + + + | Home Phone [...] Team Providers + +------+ + | Care High Heel Builder Name | Role | Phone | + [...] | [address] | [address] [facility] | | | | | lower third | [facility] | [facility] | | | | | of esophagus | [facility] | Rd | | | | | Esophagus | Road | [facility] [place] | | | | | Ca | [facility] [place] | [address] | | | | | Procedures | [address] | Phone: | | | | | Consult, | Phone: | [phone] | | | | | Sage Wilkins | [phone] | Fax: | | | | | | Fax: | [phone] | | | | | | [phone] | | +--------+--------+ + + + + Encounter Details +--------+ + + + + | Date | Type | Department | Care Team | Description | +--------+ + + + + | 01/24/ | Hospital | Radiation Oncology | | | | 2018 | Encounter | at [facility] [address] | | | | | | [place] | | | | | | [id number] [facility] | | | | | | HOSPITAL [place], | | | | | | [place] [address] | | | | | | [phone] | | | +--------+ + + + [...]
--- OUTSIDE RECORDS SUMMARY | ~2019-11-23 | XMS | Encounter Summary ---
Demographics + + + | Address | [address] | | | [place] [address] | + + + | Home Phone | | + + + | Preferred Language | Unknown | + + + | Marital Status | | + + + | Confucianism Affiliation | CAT | + + + [...] Providers + +------+ + | Care City Comptroller Name | Role | Phone | + +------+ + | Christos Olivarez MD | PCP | | + +------+ + Reason for Visit + + + | Reason | Comments | + + + | Follow-up encounter | | + + + Office Visit [...] | | | | lower third | [address] | Mailcode: | | | | | of esophagus | [address] | Center for | | | | | Procedures | [facility] [place] | Health and | | | | | [place] | [address] | Healing, | | | | | SERVICES | Phone: | [address] | | | | | PROVIDED | [phone] | [place], [place] | | | | | PART OF [place] | Fax: | [address] | | | | | INJ | [phone] | Phone: | | | | | NIVOLUMAB 1 | | [phone] | | | | | [facility] [place] EST | | Fax: | | | | | PATIENT | | [phone] | | | | | LEVEL V | | | | | | | Study IRB: | | | | | | | [id number] Study | | | | | | [...] Description | +--------+---------+ + + + | 12/24/ | Office | Hematology/Medical | Yun Ronquillo | Malignant neoplasm | | 2019 | Visit | Oncology at [facility] | [facility] [address] | of lower third of | | | | for Health & Healing | [address] | esophagus (HCC) | | | | [address] | [place], [place] | (Primary Dx); | | | | Mailcode: [facility] | [address] | Clinical trial exam; | | | | for Health and | [phone] | Nausea | | | | Healing, [address] | | | | | | [place], [place] | | | | | | [address] | | | | | | [phone] | | | +--------+---------+ + + + [...] + + + | Blood Pressure | 117/73 | 12/24/2018 9:35 AM | | | | | PST | | + + + + + | Pulse | 60 | 12/24/2018 9:35 AM | | | | | PST | | + + + + + | Temperature | 36.4 C (97.5 F) | 12/24/2018 9:35 AM | | | | | PST | | + + + + + | Respiratory Rate | 16 | 12/24/2018 9:35 AM | | | | | PST | | + + + + + | Oxygen Saturation | 100% | 12/24/2018 9:35 AM | | | | | PST | | + + + + + | Inhaled Oxygen | - | - | | | Concentration | | | | + + + + + | Weight | 66.9 kg (147 lb 8 | 12/24/2018 9:35 AM | | | | oz) | PST | | + + + + + | Height | 172.7 cm (5' 8") | 12/24/2018 9:35 AM | | | | | PST | | + + + + + | Body Mass Index | 22.43 | 12/24/2018 9:35 AM | | | [...] encounter Progress Notes Kerrie Luna, RN - 12/24/2018 9:30 AM PST Research RN Note: Mr. Jacob Sapp presents today for C9D1 nivolumab vs placebo after signing consent to particip ate in [id number]: A Randomized, Multicenter, Double Blind, Phase III Study of Adjuvant Nivol umab or Placebo in Subjects with Resected Lower Esophageal, or Gastroesophageal Junction Can cer (CheckMate 577: CHECKpoint pathway and nivoluMab clinical Trial Evaluation 577). Seen today by Yun Ronquillo and myself. OK to treat. OF NOTE: Prohibited medications: Labs were reviewed: yes ECO Accompanied today by: Baseline stool count: Baseline neuropathy: none Baseline weight: 70.2 kg IV access: PIV RD/SW referral: molding room supervisor at [facility] established Multi-D MD: Chemotherapy teaching: done per chemo binder and ICF My Chart access: active and encouraged Patient reports that neoadjuvant chemo was completed at [facility] in [place], [place]. Radiation completed at [facility]. He reports the following medical and surgical history at baseline: Past Medical History: Diagnosis Date Cervical spinal stenosis 1997 Coronary artery disease 2007 diagnosed on angiogram when experienced chest pain - treated with medications, pain attr ibuted to esophageal spasm, never had [place] or stent H/O Diverticulosis 1997 Hernia, hiatal, [...] days Infections and Infestations- other (Diverticulitis) 10/2110/31/18 Olanzapine 5 mg PO QHS nausea 12/24/18 un Ronquillo PA -C - 12/24/2018 9:30 AM PST Oncology Assessment: Cancer Staging Malignant neoplasm [...] or no response, score 3) - 07/31/2018 [facility] Medical oncology evaluation- offered enrollment on Checkmate 577 trial, Nivo vs. Plac sabrina for adjuvant therapy, consent signed - 08/21/18 CT CAP 1. Since 03/22/2018, postsurgical changes of an esophagectomy with gastric pull-through, and interval removal of the jejunostomy tube. No evidence of recurrent or metastatic disease. 2. Small right-sided pleural effusion. - 10/9/18 Start INV therapy Nivolumab/placebo - 09/17/18 Cycle [...] element of stasis. - 11/27/18 Cycle 7 - 12/10/18 Cycle 8 Plan/ Recommendations: 1. Cancer Staging Malignant neoplasm of lower third of esophagus (HCC) Staging form: Esophagus - Adenocarcinoma, AJCC 8th Edition - Clinical: No stage assigned - Unsigned - Pathologic: Stage IIIB (pT3, pN2, cM0) - Signed by Marie Liz MD on 07/31/2018 - Continue investigational therapy Nivolumab/placebo - stable fatigue, low appetite, is gaining weight - increased nausea, zofran not as effective, compazine has been more helpful but still havi ng some bouts of emesis, will try zyprexa nightly, advised that he avoid mixing sedating med ications at night. - Proceed with Cycle 9 Nivolumab/placebo today, monitor closely for toxicities - liver enzymes slowly rising, monitor closely, pt clinically asymptomatic 2. Abd pain - s/p recent antibiotics for diverticulitis - no fever, no eleveated wbc - no concerning findings on recent CT scan, some indeterminate omental nodularity which nee ds to be followed - denies pain currently, continue to monitor 3. Low appetite: - maintaining weight, will try compazine for nausea, may help with appetite - continue following with dietitian - adding zyprexa 4. Mood: - pt reports increase in depressed mood, no SI/HI - offered social work services, counselor and possibility of supportive medications to zack farnsworth, patient declined currently but verbalized his understanding that we have services availab le to support him if he needs them. No orders of the defined types were placed in this encounter. No follow-up information. The patient is receiving chemotherapy which requires ongoing evaluation of toxicity due to cytotoxic therapy and assessment of disease status and disease related symptoms. Interval History: Jacob Sapp returns to clinic today for follow up. Since the last clinic visit, he continues on study. He reports some improvements in his na usea with compazine but continues to have some episodes of emesis, low appetite. Stable fat igue. Ongoing depressive symptoms, denies SI/HI, not interested in counseling services at t his time. No recent diverticulitis flares. No fevers, chills, change in bowel habits, aravind dice. His abdominal pain has resolved. No CP, SOB, cough, rash or swelling. Current Outpatient Prescriptions [...] and swallow every twelve hours as needed. prochlorperazine 10 mg oral tablet Take 0.5-1 tablets by mouth four times daily as need ed for nausea/vomiting. Max dose: 40 mg/day propranolol 60 mg oral tablet Take 0.5 tablets by mouth two times daily. tamsulosin (FLOMAX) 0.4 mg oral capsule Take 1 capsule by mouth once daily. No current facility-administered medications for this visit. Review of Systems: Remaining 10 systems reviewed, see scanned document Fam Hx: reviewed, see scanned document Physical Examination: BP 117/73 | Pulse 60 | Temp (Src) 36.4 C (97.5 F) (Oral) | RR 16 | Ht 1.727 m (5' 8") | Wt 66.9 kg (147 lb 8 oz) | SpO2 100% | BMI 22.43 kg/(m^2) ECOG PS: 1 Gen: Well-developed, well-nourished, ambulatory, in no distress. Skin: No significant rash, ecchymoses or jaundice. HEENT: Oropharynx is clear with no exudates or erythema. No scleral icterus. Nodes: No pathologically enlarged nodes in the bilateral submandibular, submental, cerv ical, supraclavicular areas Chest: Clear to auscultation bilaterally, no rales, wheezes or rhonchi CV: Regular rate and rhythm, no murmurs or rubs Abd: Soft, non-tender, non-distended, normal bowel sounds, no hepatosplenomegaly Extr: Extremities warm, well perfused. No edema, calf pain bilaterally Neuro: A&O x 3. Psych: Pleasant, conversant, affect appropriate. Labs: Lab Results Component Value Date NA 141 12/24/2018 K 3.3 12/24/2018 CL 103 12/24/2018 BICARB 29 12/24/2018 BUN 7 12/24/2018 CR 0.8 12/24/2018 GLU 124 12/24/2018 CA 9.4 12/24/2018 AST 103 12/24/2018 ALT 90 12/24/2018 AP 96 12/24/2018 TBILI 0.7 12/24/2018 TP 6.7 12/24/2018 ALB 3.0 12/24/2018 Lab Results Component Value Date WBC 3.0 12/24/2018 HB 10.0 12/24/2018 HCT 29.6 12/24/2018 PLT 170 12/24/2018 MCV 101.0 12/24/2018 RDW 45.7 11/27/2018 Imaging: No new imaging to review Yun Ronquillo M.S., [facility] Physician [employer] Medical Oncology Pager [phone] documented in t his encounter Plan of Treatment Not on filedocumented as of this encounter Visit Diagnoses + + | Diagnosis | + + | Malignant neoplasm of lower third of esophagus (HCC) - Primary Malignant neoplasm of | | lower third of esophagus | + + | Clinical trial exam Examination of participant in clinical trial | + + | Nausea Nausea alone | + + documented in this encounter
--- OUTSIDE RECORDS SUMMARY | ~2019-11-23 | XMS | Encounter Summary ---
Demographics + + + | Address | [address] | | | [place] [address] | + + + | Home Phone [...] + + + | Author | [facility] | + + + | Organization | [facility] | + + + | Address | [...] Team Providers + +------+ + | Care Drywall Finisher Foreman Name | Role | Phone | + +------+ + | Luis Leiva DO | PCP | | + +------+ + Reason for Visit + + + | Reason | Comments | + + + | Radiology Results | | + + + Encounter Details +--------+ + + + + | Date | Type | Department | Care Team | Description | +--------+ + + + + | 03/27/ | Telephone | [facility] | Eleonora Ybarra, | Radiology Results | | 2018 | | Center at [facility] [address] | MD [address] | | | | | [address] | [address] [place], [place] | | | | | Mailcode: [place] | [address] | | | | | [facility] and | [phone] | | | | | [facility] [place] [address] | | | | | | [place], [place] | | | | | | [address] | | | | | | [phone] | | | +--------+ + + + [...]
--- OUTSIDE RECORDS SUMMARY | ~2019-11-23 | XMS | Encounter Summary ---
Demographics + + + | Address | [address] | | | [place] [address] | + + + | Home Phone | | + + + | Preferred Language | Unknown | + + + | Marital Status | | + + + | Uatsdin Affiliation | CAT | + + + [...] Team Providers + +------+ + | Care Electronics Maintenance Technician Name | Role | Phone | + +------+ + | Christos Olivarez MD | PCP | | + +------+ + Reason for Visit +--------+ + | Reason | Comments | +--------+ + | Cancer | | +--------+ + Office Visit - E/M Services (Routine) [...] | | | | | Procedures | [place], [place] | Health and | | | | | [place] | [address] | Healing, | | | | | SERVICES | Phone: | Building [address] | | | | | PROVIDED | [phone] | [place], [place] | | | | | PART OF NE | Fax: | [address] | | | | | INJ | [phone] | Phone: | | | | | [facility] [address] | | [phone] | | | | | MG NE EST | | Fax: | | | | | PATIENT | | [phone] | | | | | LEVEL V | | | | | | | Study IRB: | | | | | | | [id number] Study | | | | | | [...] Description | +--------+---------+ + + + | 01/22/ | Office | Hematology/Medical | Sergoi Cr, | Malignant neoplasm | | 2019 | Visit | Oncology at [facility] | [facility] [address] | of lower third of | | | | for Health & Healing | [facility] [address] | esophagus (HCC) | | | | [address] | [place], [place] | (Primary Dx); | | | | Mailcode: [facility] | [address] | Clinical trial exam; | | | | [facility] and | [phone] | Nausea; Fatigue, | | | | [facility] | | unspecified type; | | | | [place], [place] | | Neck pain; Urinary | | | | [address] | | retention | | | | [phone] | | | +--------+---------+ + + + [...] + + + | Blood Pressure | 144/82 | 01/22/2019 12:50 PM | | | | | PST | | + + + + + | Pulse | 61 | 01/22/2019 12:50 PM | | | | | PST | | + + + + + | Temperature | 37.7 C (99.8 F) | 01/22/2019 12:50 PM | | | | | PST | | + + + + + | Respiratory Rate | 16 | 01/22/2019 12:50 PM | | | | | PST | | + + + + + | Oxygen Saturation | 100% | 01/22/2019 12:50 PM | | | | | PST | | + + + + + | Inhaled Oxygen | - | - | | | Concentration | | | | + + + + + | Weight | 72.3 kg (159 lb 6.4 | 01/22/2019 12:50 PM | | | | oz) | PST | | + + + + + | Height | - | - | | + + + + + | Body Mass Index | 24.24 | 12/24/2018 9:35 AM | | | [...] + + documented as of this encounter Patient Instructions Patient Instructions Sergio Cr PA-C - 01/22/2019 1:50 PM PSTMr. Senait, It was good to see you today. Please let us know if you need anything, or have any questions or concerns. Take care. Varghese Cr PA-C Medical Oncology IMPORTANT INFORMATION FOR PATIENTS RECEIVING CHEMOTHERAPY, IMMUNOTHERAPY AND OTHER MEDICAL THERAPIES FOR CANCER Chemotherapy may weaken your defenses and make you more susceptible to unusual medical prob lems. Please contact us immediately if you experience any of the problems described below or have questions: 1. Any temperature over 100.4 degrees orally. 2. Vomiting more than 3 times per day or large amounts. 3. Diarrhea, over 3-4 stools per day. 4. Abnormal bruising, nose bleeds, blood in stool or urine. 5. Mouth sores that prevent eating. 6. Exposure to chicken pox if patient never had the disease. 7. Shaking chills. 8. Severe headache or changes in your ability to think. 9. Redness, swelling, pain and/or drainage at venous access device such as a port or PICC. 10. Any symptom of concern we would rather know than not! During clinic hours please call the clinic at [phone]. Evenings, weekends and holidays please call [phone] and ask to have the oncologist public relations studies director paged. documented in this encounter Progress Notes Sergio Cr PA-C - 01/22/2019 1:50 PM PST Oncology Assessment: Cancer Staging Malignant neoplasm of lower third of esophagus (HCC) Staging form: Esophagus - Adenocarcinoma, AJCC 8th Edition - Clinical: No stage assigned - Unsigned - Pathologic: Stage IIIB (pT3, pN2, cM0) - Signed by Marie Liz Md on 07/31/2018 Was diagnosed in 10/2017 after [...] or no response, score 3) - 07/31/2018 [facility] Medical oncology evaluation- offered enrollment on [...] 11/27/18 Cycle 7 - 12/10/18 Cycle 8 Interval History: Jacob Sapp returns to clinic today for follow up. Since the last clinic visit, he continues on study. He reports that his intermittent nausea is ongoing but has significantly improved with Olanzapine. He is very satisfied with his na usea control. He says that he continues to have chronic neck pain attributed to arthritis, h e continues to take Deming 5mg tab PRN. He continues to have ongoing abdominal pain, stable. He also reports intermittent dizziness when standing "ever since I had my surgery" in Summer 2017, he also started Cymbalta and Flomax around that time. He says that his energy level h as significantly improved in the past week, he's been "looking for stuff to do." However he has continued to have post-infusion fatigue (not influencing ADLs) for 5 days after infusion , then this self-resolves. He is satisfied with his mental health and doesn't feel he needs further support. Current Outpatient Prescriptions Medication Sig atorvastatin calcium [...] mouth as needed for anxiety (and sleep). OLANZapine 5 mg oral tablet Take 1 tablet by mouth once daily at bedtime. omeprazole (PRILOSEC) 20 mg oral capsule,delayed release(DR/EC) [...] medications for this visit. Review of Systems: Review of systems were obtained and reviewed with the patient today. Please reference the s canned questionnaire, see HPI for pertinent positives. Fam Hx: reviewed, see scanned document Physical Examination: BP 144/82 (BP Location: Right upper arm, Patient Position: Sitting) | Pulse 61 | Temp 37. 7 C (99.8 F) (Oral) | Resp 16 | Wt 72.3 kg (159 lb 6.4 oz) | SpO2 100% | BMI 24.24 k g/m | BSA 1.86 m General: Well developed, well nourished, adult male patient, awake and alert in OTU chair. HEENT: Anicteric sclerae. Oropharynx clear, mucous membranes moist. No sinus congestion, mu cositis, or thrush. Chest: CTAB; No crackles, cough, wheezing, or stridor. Relaxed respiratory effort. CV: RRR, no murmurs or gallops. Abd: Soft, nondistended. Non-tender to palpation. Skin: Dry and warm. No rashes or ecchymoses. Ext: Warm, well perfused. No LE edema. Neuro: A&O. No facial asymmetries. No gait abnormalities, no tremor. No memory deficits mario reciated. Psych: Pleasant, conversant, affect appropriate. Lines: Port NT, no erythema. ECO Labs: Lab Results Component Value Date NA 141 12/24/2018 K 3.3 12/24/2018 CL 103 12/24/2018 BICARB 29 12/24/2018 BUN 7 12/24/2018 CR 0.8 12/24/2018 GLU 124 12/24/2018 CA 9.4 12/24/2018 AST 103 12/24/2018 ALT 90 12/24/2018 AP 96 12/24/2018 TBILI 0.7 12/24/2018 TP 6.7 12/24/2018 ALB 3.0 12/24/2018 Lab Results Component Value Date WBC 4.2 01/22/2019 HB 9.7 01/22/2019 HCT 29.4 01/22/2019 PLT 180 01/22/2019 MCV 102.8 01/22/2019 RDW 45.7 11/27/2018 Imaging: No new imaging to review Plan/ Recommendations: 1. Cancer Staging Malignant neoplasm of lower third of esophagus (HCC) Staging form: Esophagus - Adenocarcinoma, AJCC 8th Edition - Clinical: No stage assigned - Unsigned - Pathologic: Stage IIIB (pT3, pN2, cM0) - Signed by Marie Liz MD on 07/31/2018 - Ongoing post-infusion fatigue (D1-5), otherwise appears to be tolerating well - stable post-infusion fatigue - nausea and low appetite both now well controlled with Olanzapine - Proceed with Cycle 9 Nivolumab/placebo today (01/22/2019), monitor closely for toxicities - liver enzymes stabilized after previously increasing in recent cycles, continue to monito r closely, pt clinically asymptomatic 2. Abd pain: ongoing, stable - s/p recent antibiotics for diverticulitis - no fever, no eleveated wbc - no concerning findings on recent CT scan, some indeterminate omental nodularity which nee ds to be followed - denies pain currently, continue to monitor 3. Low appetite: Ongoing however significantly improved with olanzapine - Continue Zyprexa - continue following with dietitian 4. Mood: Ongoing, stable - pt reports increase in depressed mood, no SI/HI - offered social work services, counselor and possibility of supportive medications to zack farnsworth, patient declined currently but verbalized his understanding that we have services availab to support him if he needs them. The patient is receiving chemotherapy which requires ongoing evaluation of toxicity due to cytotoxic therapy and assessment of disease status and disease related symptoms. Research RN Note: Mr. Jacob Sapp presents today for C9D1 nivolumab vs placebo after signing consent to particip ate in [id number]: A Randomized, Multicenter, Double Blind, Phase III [...] 70.2 kg IV access: PIV RD/SW referral: client services associate at [facility] established Multi-D MD: Chemotherapy teaching: done per chemo binder and ICF My Chart access: active and encouraged Patient [facility] that [facility] [place] [place]. Radiation completed at [facility]. He reports the following medical and surgical history at baseline: Past Medical History: Diagnosis Date Cervical spinal stenosis 1997 Coronary artery disease 2007 diagnosed on angiogram when experienced chest pain - treated with medications, pain attr ibuted to esophageal spasm, never had AK or stent H/O Diverticulosis 1997 Hernia, hiatal, [...] Olanzapine 5 mg PO QHS nausea 12/24/18 Prochlorperazine 10mg PO Q6hrs PRN nausea 12/10/18 Segrio Cr PA-C HEMATOLOGY/MEDICAL ONCOLOGY AT [address] Mailcode: [place] [id number] documented in this encounter Plan of Treatment [...] | Nausea Nausea alone | + + | Fatigue, unspecified type | + + | Neck pain Cervicalgia | + + | Urinary retention Retention of urine, unspecified | + + documented in this encounter
--- OUTSIDE RECORDS SUMMARY | ~2019-11-23 | XMS | Encounter Summary ---
Demographics + + + | Address | [address] | | | [place] [address] | + + + | Home Phone [...] Team Providers + +------+ + | Care Weapons Officer Naval Activity Name | Role | Phone | + +------+ + | Christos Olivarez MD | PCP | | + +------+ + Encounter Details +--------+ + + + + | Date | Type | Department | Care Team | Description | +--------+ + + + + | 08/16/ | Mortgage Servicing Specialist | Hematology | Marie Liz, | Malignant neoplasm | | 2018 | | Oncology Study [address] | [address] | of lower third of | | | | [address] | [address] | esophagus (HCC) | | | | Mailcode: [address]M | [place] [address] | (Primary Dx) | | | | [facility] | [phone] | | | | | and Monika, | | | | | | [facility] | | | | | | Floor [place], [place] | | | | | | [address] | | | | | | [phone] | | | +--------+ + + + [...] | + +--------+ + + + | 12 LEAD ECG | Routin | 08/21/2018 | Malignant neoplasm | Results for this | | | e | 11:16 AM | of lower third of | procedure are in the | | | | PDT | esophagus (HCC) | results section. | + +--------+ + + + documented in this encounter Results 12 LEAD ECG (08/21/2018 11:16 AM PDT) + + + + + + | Component | Value | Ref Range | Performed | Pathologist | | | | | At | Signature | + + + + + + | VENTRICULAR | 61 | bpm | [facility] | | | RATE | | | OF | | | | | | CARDIOLOGY | | + + + + + + | ATRIAL RATE | 61 | ms | [facility] | | | | | | OF | | | | | | CARDIOLOGY | | + + + + + + | P-R | 132 | ms | [facility] | | | INTERVAL | | | OF | | | | | | CARDIOLOGY | | + + + + + + | P AXIS | 60 | deg | [facility] | | | | | | OF | | | | | | CARDIOLOGY | | + + + + + + | QRS | 153 | ms | [facility] | | | DURATION | | | OF | | | | | | CARDIOLOGY | | + + + + + + | QT | 460 | ms | [facility] | | | | | | OF | | | | | | CARDIOLOGY | | + + + + + + | QTC-LYDIA | 463 | ms | [facility] | | | | | | OF | | | | | | CARDIOLOGY | | + + + + + + | R AXIS | -68 | deg | [facility] | | | | | | OF | | | | | | CARDIOLOGY | | + + + + + + | T AXIS | 97 | deg | [facility] | | | | | | OF | | | | | | CARDIOLOGY | | + + + + + + | ECG | Sinus rhythm | | [facility] | | | IMPRESSION | | | OF | | | | | | CARDIOLOGY | | + + + + + + | ECG | Left bundle branch block | | [facility] | | | IMPRESSION | | | OF | | | | | | CARDIOLOGY | | + + + + + + | ECG | ST elevation secondary | | [facility] | | | IMPRESSION | to IVCD- ABNORMAL ECG - | | OF | | | | | | CARDIOLOGY | | + + + + + + | ECG | Electronically signed | | [facility] | | | IMPRESSION | by: NIECY ESCOBAR | | OF | | | | 08-22-2018 17:46:08 | | CARDIOLOGY | | + + + + + + + + | Specimen | + + | | + + + + + | Narrative | Performed At | + + + | | | + + + + + + + + | Performing | Address | City/State/Zipcode | Phone Number | | Organization | | | | + + + + + | [facility] | [address] | [place], [place] | | | CARDIOLOGY | [address] | [address] | | + + + + + COMPLETE METABOLIC SET (NA,K,CL,CO2,BUN,CREAT,GLUC,CA,AST,ALT,BILI TOTAL,ALK PHOS,ALB,PROT TOTAL) (08/21/2018 11:00 AM PDT) + +---------+ + + + | Component | Value | Ref Range | Performed | Pathologist | | | | | At | Signature | + +---------+ + + + | GLUCOSE, | 92 | 70 - 99 mg/dL | [facility] [...] +---------+ + + + | CREATININE | 0.79 | 0.70 - 1.30 | [facility] | | | PLASMA | | mg/dL | LABORATORY | | | (LAB) | | | SERVICES, | | | | | | CORE | | + +---------+ + + + | EGFR | >60 | >60 mL/min | [facility] | | | - | | | LABORATORY | | | [place] | | | SERVICES, | | | [...] +---------+ + + + | POTASSIUM, | 5.1 (H) | 3.4 - 5.0 | [facility] | | | PLASMA | | mmol/L | LABORATORY | | | (LAB) | | | SERVICES, | | | | | | CORE | | + +---------+ + + + | CHLORIDE, | 106 [...] +---------+ + + + | CALCIUM(ALB | 9.3 [...] +---------+ + + + | TOTAL | 7.0 | 6.4 - 8.2 g/dL | [facility] | | | PROTEIN, | | | LABORATORY | | | PLASMA | | | SERVICES, | | | (LAB) | | | CORE | | + +---------+ + + + | ALBUMIN, | 3.5 | 3.5 - 4.7 g/dL | [facility] | | | PLASMA | | | LABORATORY | | | (LAB) | | | SERVICES, | | | | | | CORE | | + +---------+ + + + | ALK PHOS | 89 | 56 - 119 U/L | [facility] | | | | | | LABORATORY | | | | | | SERVICES, | | | | | | CORE | | + +---------+ + + + | AST(SGOT) | 53 (H) | <=41 U/L | [facility] | | | | | | LABORATORY | | | | | | SERVICES, | | | | | | CORE | | + +---------+ + + + | ALT (SGPT) | 43 | <=60 U/L | [facility] | | [...] +---------+ + + + | ANION | 7 | 4 - 11 mmol/L [...] | + + + + + | [facility] | [address] | [place] [address] | | | [address] | [address] | | | + + + + + AMYLASE, PLASMA (08/21/2018 11:00 AM PDT) + +-------+ + + + | Component | Value | Ref Range | Performed | Pathologist | | | | | At | Signature | + +-------+ + + + | AMYLASE,KATHY | 33 | 25 - 115 U/L | [facility] [...] [facility] | [address] | [place] [address] | | | SERVICES, CORE | [address] | | | + + + + + LIPASE, PLASMA (08/21/2018 11:00 AM PDT) + +---------+ + + + | Component | Value | Ref Range | Performed | Pathologist | | | | | At | Signature | + +---------+ + + + | LIPASE | 134 (L) | 152 - 353 U/L | [...] [facility] | [address] | [place] [address] | | | SERVICES, CORE | [address] | | | + + + + + HEP C AB; W/CONFIRMATION BY QUANTITATIVE PCR (08/21/2018 11:00 AM PDT) + + + + + + | Component | Value | Ref Range | Performed | Pathologist | | | | | At | Signature | + + + + + + | HEP C AB | Not Detected | Not Detected | [facility] | | | | | [...] | + + + + + | [facility] | [address] | [place] [address] | | | SERVICES, JUSTIN | [address] | | | + + + + + HEPATITIS B BY PCR (08/21/2018 11:00 AM PDT) + + + + + + | Component | Value | Ref Range | Performed | Pathologist | | | | | At | Signature | + + + + + + | HEP B DNA | Undetected | Undetected, | [facility] | | | QUANT IU | | Undetected - | DIAGNOSTIC | | | | | See Below IU/mL | | | | | | | LABORATORIE | | | | | | S | | + + + + + + + + | Specimen | + + | Blood - Blood | | (substance) | + + + + + | Narrative | Performed At | + + + | Reportable Range: 10-1,000,000,000 IU/mL These results are | [facility] | | most likely suggestive of either the absence of HBV viremia or the | DIAGNOSTIC | | presence of low-level HBV viremia at or below the assays lower | LABORATORIES | | sensitivity limit of 10 IU/mL. High or serially rising HBV viral | | | loads are a poor prognostic indicator for antiviral therapy efficacy | | | and predict a more rapid HBV disease progression. Viral load changes | | | of less than approximately 3 fold may not be biologically significant | | | and must be interpreted cautiously. | | + + + + + + + + | Performing | Address | City/State/[facility] | Phone Number | | Organization | | | | + + + + + | [facility] | [address] | [place] [address] | | | DIAGNOSTIC | [address] | | | | LABORATORIES | | | | + + + + + URINE, MICROSCOPIC EXAM (08/21/2018 11:00 AM PDT) + + + + + + | Component | Value | Ref Range | Performed | Pathologist | | | | | At | Signature | + + + + + + | RED CELLS | 30 (H) | 0 - 3 /hpf | [facility] | | | | | | LABORATORY | | | | | | SERVICES, | | | | | | CORE | | + + + + + + | WHITE CELLS | 0 | 0 - 5 /hpf | [facility] | | | | | | LABORATORY | | | | | | SERVICES, | | | | | | CORE | | + + + + + + | BACTERIA | None | None /hpf | [facility] | | | | | | LABORATORY | | | | | | SERVICES, | | | | | | CORE | | + + + + + + | YEAST (LAB) | None | None /hpf | [facility] | | | | | | LABORATORY | | | | | | SERVICES, | | | | | | CORE | | + + + + + + | SQUAMOUS | None | None /hpf | [facility] | | | EPITHELIAL | | | LABORATORY | | | | | | SERVICES, | | | | | | CORE | | + + + + + + | MUCOUS | Few (A) | None /hpf | [facility] | | | | | | LABORATORY | | | | | | SERVICES, | | | | | | CORE | | + + + + + + | TRICHOMONAS | None | None /hpf | [facility] | | | | | | LABORATORY | | | | | | SERVICES, | | | | | | CORE | | + + + + + + | NON-SQUAMOU | None | None /hpf | [facility] | | | S EPITH | | | LABORATORY | | | | | | SERVICES, | | | | | | CORE | | + + + + + + | HYALINE | 0 | 0 - 2 /lpf | [facility] | | | CASTS | | | LABORATORY | | | | | | SERVICES, | | | | | | CORE | | + + + + + + | GRANULAR | 0 | 0 - 2 /lpf | [facility] | | | CASTS | | | LABORATORY | | | | | | SERVICES, | | | | | | CORE | | + + + + + + | CELLULAR | 0 | <=0 /lpf | [facility] | | | CASTS | | | LABORATORY | | | | | | SERVICES, | | | | | | CORE | | + + + + + + | TRIPLE P04 | None | None /hpf | [facility] | | | CRYSTALS | | | LABORATORY | | | | | | SERVICES, | | | | | | CORE | | + + + + + + | CALCIUM | Moderate (A) | None /hpf | [facility] | | | OXALATE | | | LABORATORY | | | YINA | | | SERVICES, | | | | | | CORE | | + + + + + + | URIC ACID | None | None /hpf | [facility] | | | CRYSTALS | | | LABORATORY | | | | | | SERVICES, | | | | | | CORE | | + + + + + + | AMORPHOUS | None | None /hpf | [facility] | | | CRYSTALS [...] [facility] | [address] | [place] [address] | | | SERVICES, CORE | [address] | | | + + + + + FREE T4 (08/21/2018 11:00 AM PDT) + +-------+ + + + | Component | Value | Ref Range | Performed | Pathologist | | | | | At | Signature | + +-------+ + + + | FREE T4 | 0.9 | 0.6 - 1.2 ng/dL | [facility] [...] | + + + + + | [facility] | [address] | [place] [address] | | | SERVICES, CORE | [address] | | | + + + + + FREE T3, SERUM (08/21/2018 11:00 AM PDT) + + + + + + | Component | Value | Ref Range | Performed | Pathologist | | | | | At | Signature | + + + + + + | FREE T3 | 2.2 (L)Comment: | 2.4 - 4.2 pg/mL | [facility] | | | | REFERENCE INTERVAL: | | REG UNIV | | | | Triiodothyronine, Free | | PTH - [facility] | | | | (Free T3) Access | | | | | | complete set of age- | | | | | | and/or gender-specific | | | | | | reference intervals for | | | | | | this test in the [facility] | | | | | | Laboratory Test | | | | | | Directory | | | | | | ([employer]).Performed | | | | | | by [employer],[address] | | | | | | [address], [facility] [place] | | | | | | [address] | | | | | | [phone][employer]. | | | | | | [facility] Chandrakant Gasca MD, | | | | | | Lab. Director | | | | + + + + + + + + | Specimen | + + | Blood - Blood | | (substance) | + + + + + + + | Performing | Address | City/State/Zipcode | Phone Number | | Organization | | | | + + + + + | [facility] | [address] | [place], [place] | | | UNIV PTH - [facility] | | [address] | | + + + + + LDH TOTAL, PLASMA (08/21/2018 11:00 AM PDT) + +---------+ + + + | Component | Value | Ref Range | Performed | Pathologist | | | | | At | Signature | + +---------+ + + + | LD TOTAL, | 165 | <=250 U/L | [facility] | | [...] + + + + + | [facility] | [address] | [place] [address] | | | SERVICES, CORE | [address] | | | + + + + + AIDAN PRATHER ONLY (08/21/2018 11:00 AM PDT) + + + + + [...] + + + + | APPEARANCE | Sl.Cloudy | | [facility] | | | | [...] + + + + | UROBILINOGE | <2.0 | <2.0 mg/dL | [facility] | | [...] + + + + | KETONES | Negative | Negative mg/dL | [facility] | | [...] | [facility] | | | GRAVITY | Benjamin performed by | | LABORATORY | | [...] [facility] | [address] | [place] [address] | | | SERVICES, CORE | [address] | | | + + + + + TSH (08/21/2018 11:00 AM PDT) + +-------+ + + + | Component | Value | Ref Range | Performed | Pathologist | | | | | At | Signature | + +-------+ + + + | TSH | 0.74 | 0.46 - 5.56 | [facility] | [...] | + + + + + | [facility] | [address] | [place] [address] | | | [place] | [address] | | | + + + + + documented in this encounter Visit Diagnoses + + | Diagnosis | + + | 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
--- OUTSIDE RECORDS SUMMARY | ~2019-11-23 | XMS | Encounter Summary ---
Demographics + + + | Address | [address] | | | [place] [address] | + + + | Home Phone [...] Team Providers + +------+ + | Care Job Spotter Name | Role | Phone | + [...] | | | | lower third | [address] | Mailcode: | | | | | of esophagus | [address] | [facility] for | | | | | Procedures | [place], [place] | Health and | | | | | [place] | [address] | Healing, | | | | | SERVICES | Phone: | [address] | | | | | PROVIDED | [phone] | [place], [place] | | | | | PART OF [place] | Fax: | [address] | | | | | INJ | [phone] | Phone: | | | | | N[facility]UM[facility] 1 | | [phone] | | | | | [place] EST | | Fax: | | | | | PATIENT | | [phone] | | | | | LEVEL V | | | | | | | Study IRB: | | | | | | | [id number] Study | | | | | | [...] Description | +--------+---------+ + + + | 03/19/ | Office | Hematology/Medical | Krunal Godoy, | Malignant neoplasm | | 2019 | Visit | Oncology at [facility] | ,PhD [address] | of lower third of | | | | for Health & Healing | [address] [place], [place] | esophagus (HCC) | | | | [address] | [address] | (Primary Dx); | | | | Mailcode: [facility] | [phone] | Clinical trial exam; | | | | for [facility] and | | Encounter for | | | | Healing, Building [address] | | antineoplastic | | | | [place], [place] | | immunotherapy | | | | [address] | | | | | | [phone] | | | +--------+---------+ + + + [...] + + + | Blood Pressure | 156/103 | 03/19/2019 1:41 PM | | | | | PDT | | + + + + + | Pulse | 58 | 03/19/2019 1:41 PM | | | | | PDT | | + + + + + | Temperature | 36.7 C (98.1 F) | 03/19/2019 1:41 PM | | | | | PDT | | + + + + + | Respiratory Rate | 16 | 03/19/2019 1:41 PM | | | | | PDT | | + + + + + | Oxygen Saturation | 100% | 03/19/2019 1:41 PM | | | | | PDT | | + + + + + | Inhaled Oxygen | - | - | | | Concentration | | | | + + + + + | Weight | 74.8 kg (164 lb 12.8 | 03/19/2019 1:41 PM | | | | oz) | PDT | | + + + + + | Height | - | - | | + + + + + | Body Mass Index | 25.06 | 12/24/2018 9:35 AM | | | [...] documented as of this encounter Progress Notes Krunal Godoy MD,PhD - 03/19/2019 1:00 PM PDT ID: Jacob Sapp is a 68 year old man with esophageal adenocarcinoma Oncology History: Cancer Staging Malignant neoplasm of lower third [...] or no response, score 3) - 07/31/2018 [facility] Medical oncology evaluation- offered enrollment [...] 11/27/18 Cycle 7 - 12/10/18 Cycle 8 - 02/17/19: CT CAP - No recurrent/met disease. Mild increase of subcentimeter LLL nodule, al so groundglass opacity in RUL likely c/w infectious etiology. Interval History: Jacob Sapp returns to clinic today for follow up. Patient proceeded with Cycle 11 Nivolumab/placebo study treatment on 02/17/2019 at last clin ic visit. He continues to note stable post-infusion fatigue, hot flashes, and sweats. His ni ght sweats occur around 2x a week and started in November 2018. He started levothyroxine arou nd a month ago. His labs today are notable for elevated AST and ALT (grade 2) today; however , he denies recent alcohol use, noticing jaundice, and dark urine. He has noticed a couple o f oral lesions, but they resolved. He has been eating and drinking relatively well. Stable f ood dysphagia when doesn't chew completely, but he drinks water and this resolves. He denies diarrhea, varsha-colored and loose stools, dyspnea, falls, loss of consciousness, pain with s wallowing, and rashes. Review of Systems: Review of Systems Constitutional: Positive for malaise/fatigue. +fever/chills Endo/Heme/Allergies: +hot flashes/flushes Remainder of complete 14 pt review of systems negative except as above. Review of systems were obtained and reviewed with the patient today. Please reference the s canned questionnaire, see HPI for pertinent positives. PFSH: I reviewed and updated. Good social support system. Physical Examination: BP (!) 156/103 (BP Location: Left upper arm, Patient Position: Sitting) | Pulse 58 | Temp 36.7 C (98.1 F) (Oral) | Resp 16 | Wt 74.8 kg (164 lb 12.8 oz) | SpO2 100% | BMI 25 .06 kg/m | BSA 1.89 m General: Well developed, well nourished, adult male patient, awake and alert in OTU chair. HEENT: +hearing aids, hearing impaired. Anicteric sclerae. Oropharynx clear, mucous membran es moist. No sinus congestion, mucositis, or thrush. Chest: CTAB; No crackles, cough, wheezing, or stridor. Relaxed respiratory effort. CV: RRR, no murmurs or gallops. Abd: Soft, nondistended. Non-tender to palpation. Skin: Dry and warm. No rashes or ecchymoses. Ext: Warm, well perfused. No LE edema. Neuro: A&O. No facial asymmetries. No gait abnormalities, no tremor. No memory deficits mario reciated. Psych: Pleasant, conversant, affect appropriate. ECO Labs: Lab Results Component Value Date NA 142 03/19/2019 K 3.7 03/19/2019 CL 105 03/19/2019 BICARB 30 03/19/2019 BUN 10 03/19/2019 CR 0.81 03/19/2019 GLU 93 03/19/2019 CA 8.9 03/19/2019 AST 168 03/19/2019 ALT 141 03/19/2019 AP 107 03/19/2019 TBILI 0.4 03/19/2019 TP 7.1 03/19/2019 ALB 3.3 03/19/2019 Lab Results Component Value Date WBC 5.07 03/19/2019 HB 10.4 03/19/2019 HCT 30.7 03/19/2019 PLT 167 03/19/2019 MCV 100.0 03/19/2019 RDW 51.2 03/19/2019 Imaging: No new imaging to review Plan/ Recommendations: 1. Cancer Staging Malignant neoplasm of lower third of esophagus (HCC) Staging form: Esophagus - Adenocarcinoma, AJCC 8th Edition - Clinical: No stage assigned - Unsigned - Pathologic: Stage IIIB (pT3, pN2, cM0) - Signed by Marie Liz MD on 07/31/2018 - Ongoing, stable post-infusion fatigue (D1-5), otherwise appears to be tolerating well - nausea and low appetite both now well controlled with Olanzapine - Hold Cycle 12 Nivolumab/placebo today d/t elevated ALT and AST (grade 2 toxicity). - Defer treatment for 1 week. Day 1 cycle 12 study treatment planned for 03/26/19. - I discussed the goals, objectives, risks, benefits, and toxicities of therapy and the pat ient wishes to proceed. - Will need close and frequent monitoring physical examinations and laboratory monitoring f or toxicities of ongoing immunotherapy 2. Abd pain (resolved) - s/p antibiotics for diverticulitis - remains afebrile, normal wbc 3. Low appetite (Resolved). Intermittent, however significantly improved with olanzapine - Continue Zyprexa - continue following with dietitian 4. Mood: Ongoing, stable - pt previously reported increase in depressed mood, no SI/HI - not discussed today d/t improved mood. The patient is receiving chemotherapy which requires ongoing evaluation of toxicity due to cytotoxic therapy and assessment of disease status and disease related symptoms. I am Ana Abdul functioning as a scribe for Krunal Godoy MD,PhD at 9:18 AM on 03/19/2019 I have reviewed and verified the above scribed note of my visit with this patient as record ed by Ana Abdul. Research Note Study #: [id number] Patient Name: Jacob Sapp Patient Medical/Surgical History Date Cervical spinal stenosis 1997 Coronary artery disease - diagnosed on angiogram when experienced chest pain - treated with medications, pain attributed to esophageal spasm, never had OR or stent 2007 H/O Diverticulosis 1997 Hernia, hiatal, removed with esophageal surgery 05/2018 Hyperlipidemia 2008 LBBB (left bundle branch block) 09/2017 H/O sleep apnea (no longer using CPAP since weight loss and not snoring anymore) Appendectomy complicated by peritonitis 1961 Cholecystectomy 1976 Tonsillectomy 1956 Medication Name Start Date End Date Dose Route Frequency Indication DULoxetine 05/2018 30 mg PO, delayed release capsule (DR/EC) DAILY Depressive symptoms/anx iety HYDROcodone-acetaminophen 2007 5-325 mg PO tablet Take 1 tablet by mouth Q4HRs PRN Pain (n tawanda) LORazepam 2015 1 mg PO PRN Anxiety/sleep Lovastatin 2011 20 mg PO DAILY - in evening Hyperlipidemia Omeprazole (Prilosec) 2007 20 mg PO, delayed release capsule (DR/EC) DAILY - in morning GE RD prophylaxis Propranol 2002 60 mg PO Take 0.5 tablets BID HTN Tamsulosin (FLOMAX) 05/2018 0.4 mg capsule PO DAILY Urinary retention Fish oil 2008 1500 mg tab PO DAILY General health Trisha-C 2008 1 tab PO DAILY General health Marijuana salve 06/2018 Thin layer Topically PRN Pain Cesar velasquez oil 08/05/2018 1-2 drops PO DAILY Health support Ciprofloxacin 10/09/2018 10/12/2018 500 mg PO BID Infections and infestations - other (Dive rticulitis) Metronidazole 10/09/2018 10/19/2018 500 mg PO TID Infections and infestations - other (Dive rticulitis) Zofran 10/15/2018 4 mg PO Q12H PRN Nausea intermittent Bactrim DS 10/21/2018 10/31/2018 1 tab PO BID x 10 days Infections and infestations - other (Diverticulitis) Olanzapine 12/24/2018 5 mg PO QHS Nausea Prochloraperazine 12/10/2018 10 mg PO Q6H PRN Nausea Fluconazole 02/07/2019 02/13/2019 UNK PO DAILY Thrush levothyroxine 02/18/19 25 mcg PO QD hypothyroidism Adverse Event Name Start Date End Date Grade Relationship to Nivolumab/placebo 1 = related 2 = unrelated Action on Treatment 1 = none 2 = dose reduced 3 = temp stopped 4 = discontinued Immune related? 1 = yes 2 = no Is this RNI? Does the event represent a change from what's expected? (severity/frequ ency/new risk) [Y/N] Fatigue 05/2018 1 N/A - baseline N/A - baseline N/A - baseline N/A Urinary retention 05/2018Aug 2018 2 N/A - baseline N/A - baseline N/A - baseline N/A Pain, neck (intermittent) 2009 2 N/A - baseline N/A - baseline N/A - baseline N/A Depressive symptoms 05/2018 2 N/A - baseline N/A - baseline N/A - baseline N/A Insomnia 05/2018Aug 2018 1 N/A - baseline N/A - baseline N/A - baseline N/A Anxiety, intermittent 05/2018 2 N/A - baseline N/A - baseline N/A - baseline N/A Hypertension, intermittent 2002 11 N/A - baseline N/A - baseline N/A - baseline N/A Constipation, intermittent 05/2018Nov 2018 1 N/A - baseline N/A - baseline N/A - baseline N /A Gas pains 09/26/2018 1 2 = unrelated 1 = none 2 = no n Nausea, intermittent 10/09/2018 1 2 = unrelated 1 = none 2 = no n Abdominal pain (LLQ) 10/09/2018 1 2 = unrelated 1 = none 2 = no n Anorexia 10/09/2018 01/22/2019 1 2 = unrelated 1 = none 2 = no n Infections and Infestations - other (Diverticulitis) 10/09/2018 10/19/2018 - intermittent o ngoing, stop date 11/27/2018 2 2 = unrelated 1 = none 2 = no n Night sweats 12/10/2018 1 2 = unrelated 1 = none 2 = no n Thrush 02/07/2019 02/13/2019 2 2 = unrelated 1 = none 2 = no n transaminitis/AST 03/19/2019 2 1 =related 3 = temp stop 1 = yes n documented in this encounter Plan of Treatment Not on filedocumented as of this encounter Visit Diagnoses + + | Diagnosis | + + | Malignant neoplasm of lower third of esophagus (HCC) - Primary Malignant neoplasm of | | lower third of esophagus | + + | Clinical trial exam Examination of participant in clinical trial | + + | Encounter for antineoplastic immunotherapy | + + documented in this encounter"
--- OUTSIDE RECORDS SUMMARY | ~2019-11-23 | XMS | Encounter Summary ---
Demographics + + + | Address | [address] | | | [place] [address] | + + + | Home Phone [...] + + + | Author | [facility] | + + + | Organization | [facility] | + + + | [...] Team Providers + +------+ + | Care Traffic Enumerator Name | Role | Phone | + [...] Closed | | Radiology | Diagnoses | Agusto, | | | | | | Malignant | Marie Ramirez MD | | | | | | neoplasm of | [address] | | | | | | lower third | [address] | | | | | | of esophagus | [address] | | | | | | ([facility]) | [place], [place] | | | | | | Procedures | [address] | | | | | | CT CHEST, | Phone: | | | | | | ABDOMEN AND | [phone] | | | | | | PELVIS W IV | Fax: | | | | | | CONTRAST | [phone] | | +--------+--------+ + + + + Encounter Details +--------+ + + + + | Date | Type | Department | Care Team | Description | +--------+ + + + + | 08/16/ | Camera Maker | Hematology | Marie Liz, | Malignant neoplasm | | 2018 | | Oncology Study [address] | [address] | of lower third of | | | | [address] | [address] | esophagus (HCC) | | | | Mailcode: CH7M | [place] [address] | (Primary Dx) | | | | [place] [facility] | [phone] | | | | | and Healing, | | | | | | Building 1 | | | | | | Floor [facility] [place] | | | | | | [address] | | | | | | [phone] | | | +--------+ + + + [...] on filedocumented as of this encounter Results CT CHEST, ABDOMEN AND PELVIS W IV CONTRAST (08/21/2018 3:00 PM PDT) + + | Specimen | + + | | + + + + + | Narrative | Performed At | + + + | EXAM: CT of the chest, abdomen and pelvis WITH intravenous contrast. | [facility] | | HISTORY: Screening for clinical trial History of cancer of the | RADIOLOGY VOICE | | GE junction status post esophagectomy and chemoradiation. | RECOGNITION 2 | | COMPARISON: CT 03/22/2018, 10/21/2017 TECHNIQUE: CT of the chest, | | | abdomen and pelvis WITH intravenous contrast. Coronal and sagittal | | | reformats were generated and reviewed. FINDINGS: CHEST: The | | | heart and great vessels are unremarkable. There is small right-sided | | | pleural fluid. No suspicious pulmonary nodules are seen. There is no | | | axillary, hilar, or definite mediastinal adenopathy. Postsurgical | | | changes of an esophagectomy with gastric pull-through are noted with | | | numerous surgical clips near the GE junction. There is a suture line | | | coursing along the anterior portion of the conduit and appears intact. | | | Additional postsurgical hyperdensities are seen along the diaphragm. | | | LIVER: Stable small hepatic hypodensities too small to characterize | | | but likely cyst or hemangioma. No new lesions to suggest metastatic | | | disease. BILIARY: The gallbladder is surgically absent. Mild | | | intrahepatic biliary ductal dilation is stable. PANCREAS: | | | Unremarkable. SPLEEN: Small 9 mm splenic hypodensity is stable, | | | likely representing a hemangioma or lymphangioma. ADRENALS: | | | Unremarkable. KIDNEYS/URETERS: Bilateral scattered renal cyst without | | | suspicious features. PELVIC ORGANS/BLADDER: Unremarkable. GI | | | TRACT: Esophagectomy with gastric conduit pull-through as described | | | above. Interval removal of the jejunostomy tube. Sigmoid | | | diverticulosis without diverticulitis. Multiple hyperdensities within | | | the colon is likely swallowed pills. PERITONEUM: Trace free fluid in | | | the pelvis. No free air. LYMPH NODES: No lymphadenopathy. | | | VESSELS: Scattered atherosclerotic calcifications BONES AND SOFT | | | TISSUES: No destructive osseous lesions. Soft tissues are unremarkable | | | IMPRESSION: 1. Since 03/22/2018, postsurgical changes of an | | | esophagectomy with gastric pull-through, and interval removal of the | | | jejunostomy tube. No evidence of recurrent or metastatic disease. | | | 2. Small right-sided pleural effusion. I have personally reviewed | | | the images and, if necessary, edited the report. I agree with the | | | report as now presented. Final signature: Lionel Centeno MD | | | 08/21/2018 6:45 PM Preliminary: Frances Marshall MD 08/21/2018 5:16 | | | PM Dictation initiated: Frances Marshall MD 08/21/2018 3:34 PM | | + + + + + | Procedure Note | + + | Service Account, Radiant Res In Interface - 08/21/2018 6:46 PM PDT EXAM: CT of the | | chest, abdomen and pelvis WITH intravenous contrast. HISTORY: Screening for clinical | | trial History of cancer of the GE junction status post esophagectomy and | | chemoradiation. COMPARISON: CT 03/22/2018, 10/21/2017 TECHNIQUE: CT of the chest, | | abdomen and pelvis WITH intravenous contrast. Coronal and sagittal reformats were | | generated and reviewed. FINDINGS: CHEST: The heart and great vessels are unremarkable. | | There is small right-sided pleural fluid. No suspicious pulmonary nodules are seen. | | There is no axillary, hilar, or definite mediastinal adenopathy. Postsurgical changes of | | an esophagectomy with gastric pull-through are noted with numerous surgical clips near | | the GE junction. There is a suture line coursing along the anterior portion of the | | conduit and appears intact.Additional postsurgical hyperdensities are seen along the | | diaphragm.LIVER: Stable small hepatic hypodensities too small to characterize but likely | | cyst or hemangioma. No new lesions to suggest metastatic disease.BILIARY: The | | gallbladder is surgically absent. Mild intrahepatic biliary ductal dilation is | | stable.PANCREAS: Unremarkable. SPLEEN: Small 9 mm splenic hypodensity is stable, likely | | representing a hemangioma or lymphangioma.ADRENALS: Unremarkable.KIDNEYS/URETERS: | | Bilateral scattered renal cyst without suspicious features.PELVIC ORGANS/BLADDER: | | Unremarkable. GI TRACT: Esophagectomy with gastric conduit pull-through as described | | above. Interval removal of the jejunostomy tube. Sigmoid diverticulosis without | | diverticulitis. Multiple hyperdensities within the colon is likely swallowed | | pills.PERITONEUM: Trace free fluid in the pelvis. No free air. LYMPH NODES: No | | lymphadenopathy.VESSELS: Scattered atherosclerotic calcifications BONES AND SOFT | | TISSUES: No destructive osseous lesions. Soft tissues are unremarkable IMPRESSION: 1. | | Since 03/22/2018, postsurgical changes of an esophagectomy with gastric pull-through, and | | interval removal of the jejunostomy tube. No evidence of recurrent or metastatic | | disease. 2. Small right-sided pleural effusion. I have personally reviewed the images | | and, if necessary, edited the report. I agree with the report as now presented. Final | | signature: Lionel Centeno MD 08/21/2018 6:45 PM Preliminary: Frances Marshall MD | | 08/21/2018 5:16 PM Dictation initiated: Frances Marshall MD 08/21/2018 3:34 PM | | | |IMPRESSION: | | | |1. Since 03/22/2018, postsurgical changes of an esophagectomy with gastric pull-through, and interval removal of the jejunostomy tube. No evidence of recurrent or metastatic disease. | | | |2. Small right-sided pleural effusion. | | | |I have personally reviewed the images and, if necessary, edited the report. I agree with th e report as now presented. | | | |Final signature: Lionel Centeno MD 08/21/2018 6:45 PM | |Preliminary: Frances Marshall MD 08/21/2018 5:16 PM | |Dictation initiated: Frances Marshall MD 08/21/2018 3:34 PM | + + + +---------+ + [...]
--- OUTSIDE RECORDS SUMMARY | ~2019-11-23 | XMS | Encounter Summary ---
Demographics + + + | Address | [address] | | | [place] [address] | + + + | Home Phone [...] Team Providers + +------+ + | Care Area Field Person Name | Role | Phone | + [...] | [address] | [address] [facility] | | | | | lower third | [facility] | [facility] | | | | | of esophagus | [facility] | Rd | | | | | Esophagus | Road | [facility] [place] | | | | | Ca | [facility] [place] | [address] | | | | | Procedures | [address] | Phone: | | | | | Consult, | Phone: | [phone] | | | | | Sage Wilkins | [phone] | Fax: | | | | | | Fax: | [phone] | | | | | | [phone] | | +--------+--------+ + + + + Encounter Details +--------+ + + + + | Date | Type | Department | Care Team | Description | +--------+ + + + + | 01/09/ | Hospital | Radiation Oncology | | | | 2018 | Encounter | at [facility] [address] | | | | | | [facility] | | | | | | [id number] | | | | | | HOSPITAL [place], | | | | | | [place] [address] | | | | | | [phone] | | | +--------+ + + + [...]
--- OUTSIDE RECORDS SUMMARY | ~2019-11-23 | XMS | Encounter Summary ---
Demographics + + + | Address | [address] | | | [place] [address] | + + + | Home Phone | | + + + | Preferred Language | Unknown | + + + | Marital Status | | + + + | Voodoo Affiliation | CAT | + + + | Race | White | + + + | Ethnic Group | Not or | + + + Author + + + | Author | [facility] | + + + | Organization | [facility] | + + + | [...] Team Providers + +------+ + | Care Radiologic Technologist Chief Name | Role | Phone | + +------+ + | Luis Leiva DO | PCP | | + +------+ + Reason for Visit + + + | Reason | Comments | + + + | Referral To Surgery | | | - General | | + + + Encounter Details +--------+ + + + + | Date | Type | Department | Care Team | Description | +--------+ + + + + | 03/21/ | Abstract | Digestive [facility] | Clinic, Surgery | Referral To Surgery | | 2017 | | Center at [facility] [address] | | - General | | | | [address] | | | | | | Mailcode: [place] | | | | | | and | | | | | | [facility], [place] [address] | | | | | | [place], [place] | | | | | | [address] | | | | | | [phone] | | | +--------+ + + + [...]
--- OUTSIDE RECORDS SUMMARY | ~2019-11-23 | XMS | Encounter Summary ---
Demographics + + + | Address | [address] | | | [place] [address] | + + + | Home Phone [...] Team Providers + +------+ + | Care Irrigation Equipment Remover Name | Role | Phone | + +------+ + | Christos Olivarez MD | PCP | | + +------+ + Reason for Visit + + + | Reason | Comments | + + + | Symptom Management | | + + + Encounter Details +--------+ + + + + | Date | Type | Department | Care Team | Description | +--------+ + + + + | 07/03/ | Telephone | Hematology/Medical | Krunal Godoy, | Symptom Management | | 2019 | | [facility] at [facility] | ,PhD [address] | | | | | for Health & Healing | [address] [place], [place] | | | | | [address] | [address] | | | | | Mailcode: [facility] | [phone] | | | | | for Health and | | | | | | Healing, [address] | | | | | | [place], [place] | | | | | | [address] | | | | | | [phone] | | | +--------+ + + + [...]
--- OUTSIDE RECORDS SUMMARY | ~2019-11-23 | XMS | Encounter Summary ---
Demographics + + + | Address | [address] | | | [place] [address] | + + + | Home Phone [...] Providers + +------+ + | Care Product Engineer Name | Role | Phone | + +------+ + | Christos Olivarez MD | PCP | | + +------+ + Encounter Details +--------+ + + + + | Date | Type | Department | Care Team | Description | +--------+ + + + + | 04/21/ | [facility] | Hematology/Medical | Krunal Godoy, | | | 2019 | | [facility] at [facility] | ,PhD [address] | | | | | for Health & Healing | [place], [place] | | | | | [address] | [address] | | | | | Mailcode: [facility] | [phone] | | | | | for Health and | | | | | | [facility] [address] | | | | | | [place], [place] | | | | | | [address] | | | | | | [phone] | | | +--------+ + + + [...]
--- OUTSIDE RECORDS SUMMARY | ~2019-11-23 | XMS | Encounter Summary ---
Demographics + + + | Address | [address] | | | [place] [address] | + + + | Home Phone [...] Team Providers + +------+ + | Care Thread Grinder Tool Name | Role | Phone | + [...] | [address] | [address] [facility] | | | | | lower third | [facility] | [facility] | | | | | of esophagus | [facility] | Rd | | | | | Esophagus | Road | [place], [place] | | | | | Ca | [facility] [place] | [address] | | | | | Procedures | [address] | Phone: | | | | | Consult, | Phone: | [phone] | | | | | Sage Wilkins | [phone] | Fax: | | | | | | Fax: | [phone] | | | | | | [phone] | | +--------+--------+ + + + + Encounter Details +--------+ + + + + | Date | Type | Department | Care Team | Description | +--------+ + + + + | 12/28/ | Hospital | Radiation Oncology | | | | 2018 | Encounter | at [facility] [address] | | | | | | [place] | | | | | | [id number] | | | | | | HOSPITAL [place], | | | | | | [place] [address] | | | | | | [phone] | | | +--------+ + + + [...]
--- OUTSIDE RECORDS SUMMARY | ~2019-11-23 | XMS | Encounter Summary ---
Demographics + + + | Address | [address] | | | [place] [address] | + + + | Home Phone [...] Team Providers + +------+ + | Care Surgeon Assistant Name | Role | Phone | + +------+ + | Christos Olivarez MD | PCP | | + +------+ + Encounter Details +--------+ + + + + | Date | Type | Department | Care Team | Description | +--------+ + + + + | 06/16/ | Guide Travel | Hematology/Medical | Krunal Godoy, | | | 2019 | | Oncology at [place] | ,PhD [address] | | | | | for Health & Healing | [place], [place] | | | | | [address] [facility] | [address] | | | | | Mailcode: [place] | [phone] | | | | | for Health and | | | | | | [facility] | | | | | | [place], [place] | | | | | | [address] | | | | | | [phone] | | | +--------+ + + + [...]
--- OUTSIDE RECORDS SUMMARY | ~2019-11-23 | XMS | Encounter Summary ---
Demographics + + + | Address | [address] | | | [place] [address] | + + + | Home Phone | | + + + | Preferred Language | Unknown | + + + | Marital Status | | + + + | Druze Affiliation | CAT | + + + [...] Team Providers + +------+ + | Care Grocery Supervisor Name | Role | Phone | + +------+ + | Christos Olivarez MD | PCP | | + +------+ + Encounter Details +--------+ + + + + | Date | Type | Department | Care Team | Description | +--------+ + + + + | 08/08/ | Action Finisher | Hematology | Rebecca Booth | Malignant neoplasm | | 2019 | | Oncology Study 3303 | [address] | of lower third of | | | | [address] | Ashley French [place], | esophagus (HCC) | | | | Mailcode: CH7M | [place] [address] | (Primary Dx) | | | | [facility] | | | | | | and Monika, | | | | | | [facility] | | | | | | [place], [place] | | | | | | [address] | | | | | | [phone] | | | +--------+ + + + [...] as of this encounter Results LIPASE, PLASMA (08/13/2019 2:28 PM PDT) + +--------+ + + + | Component | Value | Ref Range | Performed | Pathologist | | | | | At | Signature | + +--------+ + + + | LIPASE | 53 (L) | 152 - 353 U/L | [facility] | | | (LAB) | | | [...] | + + + + + | [facility] | [address] | [place] [address] | | | SERVICES, CORE | [address] | | | + + + + + AMYLASE, PLASMA (08/13/2019 2:28 PM PDT) + +-------+ + + + [...] [facility] | [address] | [place] [address] | | | SERVICES, CORE | [address] | | | + + + + + LDH TOTAL, PLASMA (08/13/2019 2:28 PM PDT) + +---------+ + + + | Component | Value | Ref Range | Performed | Pathologist | | | | | At | Signature | + +---------+ + + + | LD TOTAL, | 157 | <=250 U/L | [facility] | | [...] | + + + + + | [facility] | [address] | [place] [address] | | | SERVICES, CORE | [address] | | | + + + + + RESEARCH ADDITIONAL TUBES (08/13/2019 2:27 PM PDT) + + + + + + | Component | Value | Ref Range | Performed | Pathologist | | | | | At | Signature | + + + + + + | LABEL ONLY | No Results Expected; | | [facility] | | | - REF LAB | Research Collection Only | | LABORATORY | | | | [...] [facility] | [address] | [place] [address] | | | SERVICES, CORE | [address] | | | + + + + + documented in this encounter Visit Diagnoses + + | Diagnosis | + + | 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
--- OUTSIDE RECORDS SUMMARY | ~2019-11-23 | XMS | Encounter Summary ---
Demographics + + + | Address | [address] | | | [place] [address] | + + + | Home Phone | | + + + | Preferred Language | Unknown | + + + | Marital Status | | + + + | Religion Affiliation | CAT | + + + | Race | White | + + + | Ethnic Group | Not or | + + + Author + + + | Author | [facility] | + + + | Organization | [facility] | + + + | [...] Team Providers + +------+ + | Care Book Packer Name | Role | Phone | [...] | | | [address] | [facility], | (Patient declined | | | | Mailcode: CH7M | [place] [address] | Safety Follow-Up | | | | [facility] | | visits.) | | | | and Healing, | | | | | | [facility], [facility] | | | | | | [place], [place] | | | | | | [address] | | | | | | [phone] | | | +--------+ + + + [...]
--- OUTSIDE RECORDS SUMMARY | ~2019-11-23 | XMS | Encounter Summary ---
Demographics + + + | Address | [address] | | | [place] [address] | + + + | Home Phone | | + + + | Preferred Language | Unknown | + + + | Marital Status | | + + + | Church Affiliation | CAT | + + + | Race | White | + + + | Ethnic Group | Not or | + + + Author + + + | Author | [facility] | + + + | Organization | [facility] | + + + | [...] Team Providers + +------+ + | Care Dielectric Tester Name | Role | Phone | + [...] [address] | | | | | [address] | [place] [address] | | | | | Mailcode: [place] | | | | | | for Health and | | | | | | Healing, [place] [address] | | | | | | [place], [place] | | | | | | [address] | | | | | | [phone] | | | +--------+ + + + [...] SERVICES, | | | | | | [facility] | | | | | | HEALTH [...] | + + + + + | [facility] | [address] | [place] [address] | | | SERVICES, [facility] | | | | | HEALTH + [...] [facility] | [address] | [place] [address] | | | SERVICES, CORE | [address] [...] [facility] | [address] | [place] [address] | | | SERVICES, CORE | [address] [...] | + + + + + | [facility] | [address] | [place] [address] | | | SERVICES, CORE | [address] | | | + + + + + [facility] - COMPLETE METABOLIC SET (03/26/2019 9:55 AM [...] + + + + + | [facility] [employer] | [address] | [place] [address] | | | [facility] | | | | | HEALTH + HEALING | | | | + + + + + documented in this encounter Visit Diagnoses + + | Diagnosis | + + | Malignant neoplasm of lower third of esophagus (HCC) Malignant neoplasm of lower | | third of esophagus | + + documented in this encounter"
--- OUTSIDE RECORDS SUMMARY | ~2019-11-23 | XMS | Encounter Summary ---
Demographics + + + | Address | [address] | | | [place] [address] | + + + | Home Phone [...] + + + | Author | [facility] | + + + | Organization | [facility] | + + + | [...] Team Providers + +------+ + | Care Epidemiology Internship Name | Role | Phone | + +------+ + | Christos Olivarez MD | PCP | | + +------+ + Encounter Details +--------+ + + + + | Date | Type | Department | Care Team | Description | +--------+ + + + + | 02/12/ | Producer Director | Hematology | Krunal Godoy, | Malignant neoplasm | | 2019 | | Oncology Study 3303 | ,PhD [address] | of lower third of | | | | [address] | [address] [place], [place] | esophagus (HCC) | | | | Mailcode: CH7M | [address] | (Primary Dx) | | | | [facility] | [phone] | | | | | and Monika, | | | | | | [facility] | | | | | | [place], [place] | | | | | | [address] | | | | | | [phone] | | | +--------+ + + + [...] as of this encounter Results LIPASE, PLASMA (02/17/2019 11:03 AM PDT) + +---------+ + + + | Component | Value | Ref Range | Performed | Pathologist | | | | | At | Signature | + +---------+ + + + | LIPASE | 670 (H) | 152 - 353 U/L | [...] [facility] | [address] | [place] [address] | | | SERVICES, CORE | [address] | | | + + + + + AMYLASE, PLASMA (02/17/2019 11:03 AM PDT) + +-------+ + + + | Component | Value | Ref Range | Performed | Pathologist | | | | | At | Signature | + +-------+ + + + | AMYLASE,KATHY | 62 | 25 - 115 U/L | [facility] [...] [facility] | [address] | [place] [address] | | | SERVICES, CORE | [address] | | | + + + + + LDH TOTAL, PLASMA (02/17/2019 11:03 AM PDT) + +---------+ + + + | Component | Value | Ref Range | Performed | Pathologist | | | | | At | Signature | + +---------+ + + + | LD TOTAL, | 172 | <=250 U/L | [facility] | | [...] | + + + + + | [employer] | [address] | [place] [address] | | | SERVICES, CORE | [address] | | | + + + + + documented in this encounter Visit Diagnoses + + | Diagnosis | + + | 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
--- OUTSIDE RECORDS SUMMARY | ~2019-11-23 | XMS | Encounter Summary ---
Demographics + + + | Address | [address] | | | [place] [address] | + + + | Home Phone | | + + + | Preferred Language | Unknown | + + + | Marital Status | | + + + | Scientology Affiliation | CAT | + + + [...] Team Providers + +------+ + | Care Platform Worker Name | Role | Phone | + +------+ + | Christos Olivarez MD | PCP | | + +------+ + Reason for Visit + + + | Reason | Comments | + + + | Refill Request | OLANZapine 5 mg oral tablet | + + + Encounter Details +--------+--------+ + + + | Date | Type | Department | Care Team | Description | +--------+--------+ + + + | 02/27/ | Refill | Hematology/Medical | Krunal Godoy, | Refill Request | | 2019 | | [facility] at [place] | ,PhD [address] | (OLANZapine 5 mg | | | | for Health & Healing | [place], [place] | oral tablet) | | | | [address] | [address] | | | | | Mailcode: [place] | [phone] | | | | | for Health and | | | | | | Healing, [address] | | | | | | [place], [place] | | | | | | [address] | | | | | | [phone] | | | +--------+--------+ + + + [...]
--- OUTSIDE RECORDS SUMMARY | ~2019-11-23 | XMS | Encounter Summary ---
Demographics + + + | Address | [address] | | | [place] [address] | + + + | Home Phone [...] Team Providers + +------+ + | Care Hide Cooking Operator Name | Role | Phone | [...] | [address] | [address] [facility] | | | | | lower third | Veterans | [facility] | | | | | of esophagus | [facility] | Rd | | | | | Esophagus | Road | [facility] [place] | | | | | Ca | [facility] [place] | [address] | | | | | Procedures | [address] | Phone: | | | | | Consult, | Phone: | [phone] | | | | | Sage Wilkins | [phone] | Fax: | | | | | | Fax: | [phone] | | | | | | [phone] | | +--------+--------+ + + + + Encounter Details +--------+ + + + + | Date | Type | Department | Care Team | Description | +--------+ + + + + | 01/07/ | Hospital | Radiation Oncology | | | | 2018 | Encounter | at [facility] [address] | | | | | | [place] | | | | | | [id number] [facility] | | | | | | HOSPITAL [place], | | | | | | [place] [address] | | | | | | [phone] | | | +--------+ + + + [...]
--- OUTSIDE RECORDS SUMMARY | ~2019-11-23 | XMS | Encounter Summary ---
Demographics + + + | Address | [address] | | | [place] [address] | + + + | Home Phone [...] Team Providers + +------+ + | Care Track Laying Equipment Operator Name | Role | Phone | [...] Description | +--------+---------+ + + + | 01/08/ | Office | Radiation Oncology | Daniel Barrera, | Encounter for | | 2018 | Visit | at [facility] [address] | [address] | radiotherapy | | | | [place] | [address] | (Primary Dx) | | | | [id number] [facility] | [place], [place] | | | | | [facility], | [address] | | | | | [place] [address] | [phone] | | | | | [phone] | | | +--------+---------+ + + + [...] + + + | Blood Pressure | 135/91 | 01/08/2018 10:05 AM | | | | | PST | | + + + + + | Pulse | 73 | 01/08/2018 10:05 AM | | | | | PST | | + + + + + | Temperature | 37 C (98.6 F) | 01/08/2018 10:05 AM | | | | | PST | | + + + + + | Respiratory Rate | 18 | 01/08/2018 10:05 AM | | | | | PST | | + + + + + | Oxygen Saturation | 100% | 01/08/2018 10:05 AM | Room Air | | | | PST | | + + + + + | Inhaled Oxygen | - | - | | | Concentration | | | | + + + + + | Weight | 90.7 kg (200 lb) | 01/08/2018 10:05 AM | | | | | PST | | + + + + + | Height | - | - | | + + + + + | Body Mass Index | 30.41 | 12/06/2017 10:48 AM | | | | | PST | | + + + + + documented in this encounter Progress Notes Leif Lindsay MA - 01/08/2018 9:59 AM PSTFormatting of this note might be different fro m the original. Nursing Note Patient here for an On Treatment Visit. Completed 12 fractions of a planned 25. Current dose 2400 cGy of total 5000 cGy. Vitals/Pain Level: BP 135/91 | Pulse 73 | Temp (Src) 37 C (98.6 F) (Oral) | RR 18 | Wt 90.7 kg (200 lb) | SpO2 100[Room Air[% | BMI 30.41 kg/(m^2) Pain Score: Wt Readings from Last 3 Encounters: 01/08/18 90.7 kg (200 lb) 01/03/18 92.1 kg (203 lb) 12/27/17 90.7 kg (200 lb) No results for input(s): WBC, HB, HCT, PLT, BUN, CR, NA, K, MG in the last 720 hours. Daniel Craig MD - 01/08/2018 9:50 AM PST Radiation Oncology - On Treatment Visit Note ID: 67 y.o. male with [id number] esophageal adenocarcinoma (7 LN) 36-44cm from the [...] Total RT Dose: 50 Gy. Current Fraction: 12 of 25. Concurrent Chemotherapy: carbo/taxol SUBJECTIVE: Feeling strong. Swallowing is more tender. No fevers or chills. No chest pain. J tube func tioning well. OBJECTIVE: Vital Signs: BP 135/91 | Pulse 73 | Temp (Src) 37 C (98.6 F) (Oral) | RR 18 | Wt 90.7 k g (200 lb) | SpO2 100[Room Air[% | BMI 30.41 kg/(m^2) Pain Score: 2 Wt Readings from Last 3 Encounters: 01/08/18 90.7 kg (200 lb) 01/03/18 92.1 kg (203 lb) 12/27/17 90.7 kg (200 lb) Jacob Melissa Sapp's mode of transportation is ambulatory. Skin: no erythema. ASSESSMENT/PLAN: The patient's chart and films were reviewed. Cont RT. DANIEL BARRERA MD documented in this encounter Plan of Treatment Not on filedocumented as of this encounter Visit Diagnoses + + | Diagnosis | + + | Encounter for radiotherapy - Primary Radiotherapy | + + documented in this encounter"
--- OUTSIDE RECORDS SUMMARY | ~2019-11-23 | XMS | Encounter Summary ---
Demographics + + + | Address | [address] | | | [place] [address] | + + + | Home Phone | | + + + | Preferred Language | Unknown | + + + | Marital Status | | + + + | Voodoo Affiliation | CAT | + + + | Race | White | + + + | Ethnic Group | Not or | + + + Author + + + | Author | [facility] | + + + | Organization | [facility] | + + + | [...] Team Providers + +------+ + | Care Marketing Operations Associate Name | Role | Phone | [...] | | | | | Procedures | [place], [place] | Health and | | | | | [place] | [address] | Healing, | | | | | SERVICES | Phone: | [address] | | | | | PROVIDED | [phone] | [place], [place] | | | | | PART OF [place] | Fax: | [address] | | | | | [place] | [phone] | Phone: | | | | | [address] | | [phone] | | | | | [place] EST | | Fax: | | | | | PATIENT | | [phone] | | | | | LEVEL V | | | | | | | Study IRB: | | | | | | | [id number] Study | | | | | | [...] | 2019 | Visit | [facility] [place] | [address] | of lower third of | | | | for Health & Healing | [address] | esophagus (HCC) | | | | [address] | [place] [address] | (Primary Dx) | | | | Mailcode: [place] | [phone] | | | | | for Health and | | | | | | Healing, [address] | | | | | | [place], [place] | | | | | | [address] | | | | | | [phone] | | | +--------+---------+ + + + [...] after signing consent to particip ate in [id number]: A Randomized, Multicenter, Double Blind, Phase III [...] 70.2 kg IV access: PIV RD/SW referral: dat instructor at [facility] established Multi-D MD: Chemotherapy teaching: done per chemo binder and I[facility] My Chart access: active and encouraged Patient reports that neoadjuvant chemo was completed at [facility] [place]. Radiation completed at [facility]. He reports the following medical and surgical history at baseline: Past Medical History: Diagnosis Date Cervical spinal stenosis 1997 Coronary artery disease 2007 diagnosed on angiogram when experienced chest pain - treated with medications, pain attr ibuted to esophageal spasm, never had IL or stent H/O Diverticulosis 1997 Hernia, hiatal, [...] or no response, score 3) - 07/31/2018 [facility] Medical oncology evaluation- offered enrollment on [employer] [...] agree with report Marie Liz MD Clinical blender machine operator Medical Oncology and Hematology documented in this encou nter Plan of Treatment Not on filedocumented as of this encounter Visit Diagnoses + + | Diagnosis | + + | 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
--- OUTSIDE RECORDS SUMMARY | ~2019-11-23 | XMS | Encounter Summary ---
Demographics + + + | Address | [address] | | | [place] [address] | + + + | Home Phone | | + + + | Preferred Language | Unknown | + + + | Marital Status | | + + + | Sabianism Affiliation | CAT | + + + [...] Team Providers + +------+ + | Care Business Initiatives Manager Name | Role | Phone | + +------+ + | Christos Olivarez MD | PCP | | + +------+ + Reason for Visit + + + | Reason | Comments | + + + | Research | | | Documentation | | + + + Encounter Details +--------+ + + + + | Date | Type | Department | Care Team | Description | +--------+ + + + + | 10/15/ | Documentati | Hematology/Medical | Marie Liz, | Research | | 2018 | on | [facility] [place] | [address] | Documentation | | | | for Health & Healing | [address] | | | | | [address] | [place] [address] | | | | | Mailcode: [place] | [phone] | | | | | for Health and | | | | | | Healing, [address] | | | | | | [place], [place] | | | | | | [address] | | | | | | [phone] | | | +--------+ + + + [...]
--- OUTSIDE RECORDS SUMMARY | ~2019-11-23 | XMS | Encounter Summary ---
Demographics + + + | Address | [address] | | | [place] [address] | + + + | Home Phone | | + + + | Preferred Language | Unknown | + + + | Marital Status | | + + + | Rastafarian Affiliation | CAT | + + + [...] Team Providers + +------+ + | Care Hard Hat Diver Name | Role | Phone | + [...] | | | neoplasm of | ,PhD [address] | | | | | | lower third | [address] | | | | | | of esophagus | [place], | | | | | | (HCC) | [place] | | | | | | Procedures | [address] | | | | | | US NEEDLE | Phone: | | | | | | BIOPSY | [phone] | | | | | | SUPERFICIAL | Fax: | | | | | | LYMPH NODE | [phone] | | | | | | W/ GUIDANCE | | | + +--------+ + + [...] | | | | of esophagus | [place], | | | | | | (HCC) | [place] | | | | | | Procedures | [address] | | | | | | US NEEDLE | Phone: | | | | | | BIOPSY | [phone] | | | | | | SUPERFICIAL | Fax: | | | | | | LYMPH NODE | [phone] | | | | | | W/ GUIDANCE | | | + +--------+ + + + + Encounter Details +--------+ + + + + | Date | Type | Department | Care Team | Description | +--------+ + + + + | 08/22/ | Hospital | Diagnostic Imaging | Krunal Godoy, | | | 2019 | Encounter | Services at [facility] | ,PhD [address] | | | | | [address] | [place], [place] | | | | | Katherine French Mailcode: | [address] | | | | | [address] [facility] | [phone] | | | | | [place], [place] | | | | | | [address] | | | | | | [phone] | | | +--------+ + + + [...] | + +--------+ + + + | US NEEDLE BIOPSY | Routin | 08/22/2019 | Malignant neoplasm | Results for this | | SUPERFICIAL LYMPH | e | 3:21 PM | of lower third of | procedure are in the | | NODE W/ GUIDANCE | | PDT | esophagus (HCC) | results section. | + +--------+ + + + | SURGICAL PATHOLOGY | Routin | 08/22/2019 | | Results for this | | | e | 3:16 PM | | procedure are in the | | | | PDT | | results section. | + +--------+ + + + documented in this encounter Results US NEEDLE BIOPSY SUPERFICIAL LYMPH NODE W/ GUIDANCE (08/22/2019 3:21 PM PDT) + + | Specimen | + + | | + + + + + | Narrative | Performed At | + + + | PROCEDURE: US-GUIDED RIGHT LOWER QUADRANT SOFT TISSUE NODULE BIOPSY. | [facility] | | HISTORY: esophageal cancer, immunotherapy per clinical trial, new | RADIOLOGY VOICE | | findings per PET COMPARISON: PET/CT 08/15/2019 TECHNIQUE: | RECOGNITION 2 | | After a procedures, alternatives, risks, and questions (PARQ) | | | conference, written and oral consent was obtained from the patient. | | | A Team Pause was performed. The site was prepped and draped in | | | usual sterile fashion. Local anesthesia was achieved with several cc | | | of buffered lidocaine. 3 passes were made through the right lower | | | quadrant subcutaneous soft tissue nodule with 18g core biopsy needles | | | under direct sonographic visualization. The patient tolerated the | | | procedure without complications. FINDINGS: Within the right | | | lower quadrant in the area of clinical concern, there is a 2.4 x 0.8 x | | | 1.8 cm hypoechoic subcutaneous soft tissue nodule overlying the | | | patient's surgical mesh. This was targeted for biopsy. | | | IMPRESSION: 2.4 x 0.8 x 1.8 cm soft tissue nodule overlying the | | | patient's hernia mesh in the subcutaneous soft tissues of the right | | | lower quadrant. 3 core biopsies were obtained through this nodule. | | | By my electronic signature below, I, the attending radiologist, | | | was present for the entire procedure as described in this note. I | | | have personally reviewed the images and, if necessary, edited the | | | report. I agree with the report as now presented. Final | | | signature: Shahrzad Lincoln MD 08/22/2019 3:52 PM Preliminary: | | | Shahrzad Lincoln MD Dictation initiated: Shahrzad Lincoln MD | | | 08/22/2019 3:46 PM | | + + + + + | Procedure Note | + + | Service Account, Radiant Res In Interface - 08/22/2019 3:53 PM PDT PROCEDURE: | | US-GUIDED RIGHT LOWER QUADRANT SOFT TISSUE NODULE BIOPSY. HISTORY: esophageal cancer, | | immunotherapy per clinical trial, new findings per PET COMPARISON: PET/CT 08/15/2019 | | TECHNIQUE: After a procedures, alternatives, risks, and questions (PARQ) conference, | | written and oral consent was obtained from the patient. A Team Pause was performed. | | The site was prepped and draped in usual sterile fashion. Local anesthesia was achieved | | with several cc of buffered lidocaine. 3 passes were made through the right lower | | quadrant subcutaneous soft tissue nodule with 18g core biopsy needles under direct | | sonographic visualization. The patient tolerated the procedure without complications. | | FINDINGS: Within the right lower quadrant in the area of clinical concern, there is a | | 2.4 x 0.8 x 1.8 cm hypoechoic subcutaneous soft tissue nodule overlying the patient's | | surgical mesh. This was targeted for biopsy. IMPRESSION: 2.4 x 0.8 x 1.8 cm soft | | tissue nodule overlying the patient's hernia mesh in the subcutaneous soft tissues of | | the right lower quadrant. 3 core biopsies were obtained through this nodule. By my | | electronic signature below, I, the attending radiologist, was present for the entire | | procedure as described in this note. I have personally reviewed the images and, if | | necessary, edited the report. I agree with the report as now presented. Final | | signature: Shahrzad Lincoln MD 08/22/2019 3:52 PM Preliminary: Shahrzad Lincoln MD | | Dictation initiated: Shahrzad Lincoln MD 08/22/2019 3:46 PM | | | |I have personally reviewed the images and, if necessary, edited the report. I agree with th e report as now presented. | | | |Final signature: Shahrzad Lincoln MD 08/22/2019 3:52 PM | |Preliminary: Shahrzad Lincoln MD | |Dictation initiated: Shahrzad Lincoln MD 08/22/2019 3:46 PM | + + + +---------+ + + | Performing | Address | City/State/Zipcode | Phone Number | | Organization | | | | + +---------+ + + | [facility] | | | | | VOICE RECOGNITION 2 | | | | + +---------+ + + SURGICAL PATHOLOGY (08/22/2019 3:16 PM PDT) + + + + + + | Component | Value | Ref Range | Performed | Pathologist | | | | | At | Signature | + + + + + + | Addendum 1 | This addendum is created | | [facility] | Addendum | | | to report Her2/enio | | DEPARTMENT | electronically | | | immunohistochemical | | OF | signed by | | | results, which was | | PATHOLOGY | Lorenza K | | | requested by the [facility] | | | DO Fior on | | | Onc clinical team on | | | 08/29/2019 at | | | 08/28/2019. The final | | | 1:12 PM | | | diagnosis is unchanged. | | | | | | Stain Her2 IHC Results | | | | | | (Block A2) HER-2/enio | | | | | | (PATHWAYTMHer2 kit, 4B5) | | | | | | Negative(1+) 10% of | | | | | | invasive tumor cells | | | | | | exhibit faint, | | | | | | membranous HER-2/enio | | | | | | membrane staining | | | | | | Ischemic time: 0 hours; | | | | | | Presumably fixed | | | | | | immediately in biopsy | | | | | | suite (Meets ASCO/CAP | | | | | | Guidelines) Formalin | | | | | | fixation time: | | | | | | Approximately 7 hours, | | | | | | as estimated from | | | | | | available records (Meets | | | | | | ASCO/CAP Guidelines) | | | | | | Immunohistochemical | | | | | | stains are performed on | | | | | | formalin-fixed, paraffin | | | | | | embedded tissue, using | | | | | | a biotin-free protocol | | | | | | ([employer] Ultraview) that | | | | | | includes appropriate | | | | | | positive and negative | | | | | | controls. The Her-2/enio | | | | | | immunohistochemical | | | | | | stains are performed | | | | | | with FDA status 510(k) | | | | | | cleared kits from | | | | | | [employer] according to | | | | | | natural gas trader's | | | | | | instructions, with | | | | | | appropriate controls. | | | | | | [facility] participates in | | | | | | proficiency testing for | | | | | | gastric/GEJ Her-2/enio | | | | | | immunohistochemistry. | | | | | | Inadequate specimens are | | | | | | not reported.The | | | | | | [employer] Her2 IHC scoring | | | | | | guide as modified for | | | | | | gastric invasive | | | | | | carcinoma (see | | | | | | reference):Her-2 IHC | | | | | | Score Her-2 IHC Pattern | | | | | | Observed Final Her-2 IHC | | | | | | Interpretation 0 No | | | | | | reactivity or no | | | | | | membranous reactivity | | | | | | Negative 1+ Faint or | | | | | | barely perceptible | | | | | | membranous reactivity in | | | | | | ?10% of cancer cells or | | | | | | cells are reactive only | | | | | | in part of their | | | | | | membrane. Negative 2+ | | | | | | Weak to moderate | | | | | | complete, basolateral or | | | | | | lateral membranous | | | | | | reactivity in >10% of | | | | | | tumor cells Equivocal 3+ | | | | | | Strong complete, | | | | | | basolateral or lateral | | | | | | membranous reactivity in | | | | | | ?10% of cancer cells | | | | | | Positive None Recommend | | | | | | repeating on another | | | | | | specimen. Indeterminate | | | | | | References: 1. Jaye | | | | | | et al. Assessment of a | | | | | | HER2 scoring system for | | | | | | gastric cancer: results | | | | | | from a validation study. | | | | | | Histopathology. | | | | | | 52(4):642-166, 2007.2. | | | | | | Juhi et al. HER2 | | | | | | diagnostics in gastric | | | | | | cancer -- guideline | | | | | | validation and | | | | | | development of | | | | | | standardized | | | | | | immunohistochemical | | | | | | testing. [place] | | | | | | Archiv. [phone], | | | | | | 2009.Addendum reviewed | | | | | | by:Alysia Salmeron DO | | | | | | | | | | | | PathologistPathology, | | | | | | [facility] | | | | | | [place] | | | | + + + + + + | Final | A. RLQ abdominal wall, | | [facility] | Electronically | | Pathologic | biopsy: Metastatic | | DEPARTMENT | signed by | | Diagnosis | adenocarcinoma, | | OF | Lorenza K | | | moderately to poorly | | PATHOLOGY | DO Fior on | | | differentiated, | | | 08/29/2019 at | | | infiltrating fibrotic | | | 1:08 PM | | | tissue (see | | | | | | comment)Comment: The | | | | | | adenocarcinoma is | | | | | | positive for cytokeratin | | | | | | 7 and CDX-2, and is | | | | | | negative for cytokeratin | | | | | | 20 and TTF-1. This | | | | | | immunoprofile is | | | | | | non-specific, but is | | | | | | congruent with the | | | | | | patient's history of | | | | | | esophageal | | | | | | adenocarcinoma. Her2 enio | | | | | | has been ordered and | | | | | | will be reported as an | | | | | | addendum. Preliminary | | | | | | diagnosis telephoned to | | | | | | StartSampling team at 3:25 pm | | | | | | on 08/28/2019.Case seen | | | | | | by:Paul Mendoza DO | | | | | | | | | | | | Pathology ResidentMandy | | | | | | DO Fior | | | | | | | | | | | | Pathologist My | | | | | | electronic [...] + + + | Gross | Received is one specimen | | [facility] | | | Description | in formalin labeled | | DEPARTMENT | | | | with the patient's name | | OF | | | | (initials CLS) and | | PATHOLOGY | | | | medical record number | | | | | | [id number]. Abdominal, | | | | | | RLQ abdominal wall: | | | | | | Received labeled "RLQ | | | | | | abdominal-A" are | | | | | | multiple oropeza, | | | | | | cylindrical and | | | | | | irregular fragments of | | | | | | tissue ranging from 0.1 | | | | | | to 1.1 cm in greatest | | | | | | dimension. The specimen | | | | | | is wrapped and | | | | | | submitted entirely in | | | | | | cassettes A1 and | | | | | | A2.(RLW) | | | | + + + [...] | | | | | determined by [facility] | | | | | | laboratories. It has not | | | | | | been cleared or | | | | [...] | | | | | laboratory testing. If | | | | | | immunohistochemical | | | | | | analysis (IHC) was | | | | | | performed concurrently | | | | | | with flow cytometry, the | | | | | | IHC was done to allow | | | | | | assessment of | | | | | | immunoarchitecture, | | | | | | which is not supplied by | | | | | | flow cytometry. Flow | | | | | | cytometry enables better | | | | | | assessment of clonality | | | | | | and antigen aberrancy | | | | | | than IHC. Appropriate | | | | | | positive controls and/or | | | | | | negative controls were | | | | | | used for all stains, | | | | | | including | | | | | | immunohistochemical | | | | | | stains, special stains, | | | | | | and in situ | | | | | | hybridization, and these | | | | | | reacted appropriately. | | | | + + + + + + + + | Specimen | + + | Tissue - Ectopic | | ureter (disorder) | + + + + + + + | Performing | Address | City/State/Zipcode | Phone Number | | Organization | | | | + + + + + | [facility] | [address] | [place] [address] | | | PATHOLOGY | [address] | | | + + + + + documented in this encounter Visit Diagnoses + + | Diagnosis | + + | Malignant neoplasm of lower third of esophagus (HCC) Malignant neoplasm of lower | | third of esophagus | + + documented in this encounter
--- OUTSIDE RECORDS SUMMARY | ~2019-11-23 | XMS | Encounter Summary ---
Demographics + + + | Address | [address] | | | [place] [address] | + + + | Home Phone [...] Team Providers + +------+ + | Care Stage Rigger Name | Role | Phone | + +------+ + | Luis Leiva DO | PCP | | + +------+ + Reason for Referral PROC - Outpatient Surgery (Routine) +--------+--------+ + + + + | Status | Reason | Specialty | Diagnoses / | Referred By | Referred To | | | | | Procedures | Contact | Contact | +--------+--------+ + + + + | Closed | | Surgery | Diagnoses | Dillon | Tate | | | | | | MD Kristina | Eleonora Leger | | | | | Gastroesopha | [address] | [address] | | | | | geal cancer | [facility] | [address] | | | | | (HCC) | Rd | [place], [place] | | | | | Procedures | [place], [place] | [address] | | | | | REQUEST TO | [address] | Phone: | | | | | SURGERY | | [phone] | | | | | 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 | | Fax: | | | | | MS | | [phone] | | | | | LAP,DIAGNOST | | | | | | | IC ABDOMEN | | | | | | | MS LAP,DX | | | | | | | SURGICAL ABD | | | | | | | W/BIOPSY | | | | | | | MS UPPER GI | | | | | | | ENDOSCOPY,DI | | | | | | | AGNOSIS MS | | | | | | | UPPER GI | | | | | | | ENDOSCOPY,BI | | | | | | | OPSY | | | +--------+--------+ + + + + Diagnostic Testing (Routine) +--------+--------+ + + + + | Status | Reason | Specialty | Diagnoses / | Referred By | Referred To | | | | | Procedures | Contact | Contact | +--------+--------+ + + + + | Closed | | Radiology | Diagnoses | Dillon, | Rad Ct Scan | | | | | | MD Kristina | [address] | | | | | Gastroesopha | [address] | [address] | | | | | geal cancer | [facility] | Mailcode: | | | | | (HCC) | Rd | [facility] | | | | | Procedures | [place], [place] | for Health | | | | | CT CHEST, | [address] | and Healing, | | | | | ABDOMEN AND | | Building [address], | | | | | [address] | | 3rd Floor | | | | | CONTRAST | | [place], [place] | | | | | | | [address] | | | | | | | Phone: | | | | | | | [phone] | | | | | | | Fax: | | | | | | | [phone] | +--------+--------+ + + + + Reason for Visit + + + | Reason | Comments | + + + | New patient | | | consultation | | + + + Encounter Details +--------+---------+ + + + | Date | Type | Department | Care Team | Description | +--------+---------+ + + + | 03/22/ | Office | [facility] | Eleonora Ybarra, | Gastroesophageal | | 2018 | Visit | [facility] [address] | MD [address] | cancer (HCC) | | | | [address] | [address] [place], [place] | (Primary Dx) | | | | Mailcode: [place] | [address] | | | | | for Health and | [phone] | | | | | [facility] [address] | | | | | | [place], [place] | | | | | | [address] | | | | | | [phone] | | | +--------+---------+ + + + [...] + + + | Blood Pressure | 85/61 | 03/22/2018 8:20 AM | | | | | PDT | | + + + + + | Pulse | 75 | 03/22/2018 8:20 AM | | | | | PDT | | + + + + + | Temperature | - | - | | + + + + + | Respiratory Rate | 15 | 03/22/2018 8:20 AM | | | | | PDT | | + + + + + | Oxygen Saturation | - | - | | + + + + + | Inhaled Oxygen | - | - | | | Concentration | | | | + + + + + | Weight | 74.8 kg (164 lb 12.8 | 03/22/2018 8:20 AM | | | | oz) | PDT | | + + + + + | Height | 172.7 cm (5' 8") | 03/22/2018 8:20 AM | | | | | PDT | | + + + + + | Body Mass Index | 25.06 | 03/22/2018 8:20 AM | | | | | PDT | | + + + + + documented in this encounter Patient Instructions Patient Instructions Evelyn Maddox RN - 03/22/2018 8:30 AM PDTEPICSPINPTPREOPINSTRUCTIONSP [facility] SURGERY INFORMATION [facility] General Surgery Office Toll-free: ext [phone] Surgery Date: SundayApril 10 Procedure: Staging Laparoscopy, +/- biopsies + washings Surgeon Name: Dr. Eleonora Ybarra DIRECTIONS FOR SURGERY DIET Nothing to eat or drink after midnight on the night prior to surgery. Your doctor will ins truct you on what medications to take the morning of surgery. Please note: Some surgeries may require additional dietary restrictions or a bowel preparation. Your martínez rgical team will give you additional printed instructions should these be necessary. MEDICATIONS Unless otherwise directed by your provider, do not take any Aspirin, vitamin E or non-stero idal anti-inflammatory (NSAIDs i.e. Advil, Aleve, Ibuprofen) or herbal supplements seven day s prior to your surgery. These drugs may interfere with normal blood clotting and may cause excessive bleeding and bruising during or after the surgery. Please see the list below, kalli ramirez has a list of products that contain Aspirin, Ibuprofen, or Vitamin E If you are taking Coumadin (warfarin), Plavix or any other blood thinners please let your s urgical team know as medication changes will be necessary. If you need a pain medication for general purposes, use Tylenol as directed. If you are in doubt about any medications that you are taking, please contact our office. PRE-OP BATHING/SHOWERING - HIBICLENS (Chlorhexidine Gluconate) Bath or shower the evening before and the morning of your surgery Use the bottle of Hibiclense soap for the evening cleansing and the bottle in the mor nathen Wash from your neck to your toes. BE CAREFUL NOT TO WASH YOUR FACE OR HAIR WITH THIS SOLU TION After your shower or bath do not apply lotions, powders, or deoderant SMOKING You should not smoke for four weeks prior to the procedure and two weeks after the procedur e. If you are a smoker, please speak with your provider. Smoking can significantly affect the outcome of your procedure. Smoking near the time of martínez rgery causes a more acute narrowing of the blood vessels, which may lead to decreased blood flow to the tissue, poor healing, bad scars, or actual loss of tissue. WHEN TO ARRIVE Check-in times for Hospital Admissions are not available until the day prior to surgery. S omeone will contact you with your check in time. If you do not hear from anyone by 3:00 PM please call the General Surgery Office at [phone] for [id number]. PARKING Parking for patients and visitors is available in the [facility] Parking structure located across from the emergency department. Patient parking is available on level 1 and 3. Mete red parking is available on the top level. CHECKING IN FOR SURGERY For Hospital Admission (in-patient) you will check in on the day of surgery at the Admittin g Department located on the 9th floor of [facility] TRANSPORTATION You will require transportation home on the day of discharge. Pain medications and physica l activity restrictions may limit your ability to drive safely. CANCELLING YOUR PROCEDURE Please notify the general surgery office at [phone] as soon as possible should you nee d to cancel or change your surgery date. We will attempt to reschedule your procedure in a timely manner however due to a limited amount of operating room time a waiting list is not u ncommon. ILLNESS Please call our office with any signs of illness such as cold, flu, infection, fever, or s kin rash/infection anytime prior to your surgery. PRODUCTS CONTAINING ASPIRIN [place], Anacin, Anexsia with Codeine, Andynos, Aspirin, Aspirin suppositories, Ascrip tin, Aspergum, Axotal, B-A-C, Baby Aspirin, Tonja, BC Powder, Bexophene, Buffaprin, Bufferin , Buffinol, Cama-Arthritis Strength, Congespirin, Grady, Coricidin, Damason, Darvon, Dristan, Rosa-Gesic, Digel, Dolprin #3 Tablets, Donatab, Doxaphene, Duragesic, Easprin, Ecotrin, Emag rin Forte, Emiprin, Emprazil, Equagesic, Equazine M, Excedrin, Fiogesic, Fiorgen PH, Fiorice t, Fiorinal, 4-Way Cold Tablet Gemnisyn, Indocin, Liquprin, Lortab ASA, Magnaprin, Marnal, Meprobamate, Midol, Momentum, N orgesic, [place], Orphengesic, Pabalate, P-A-C, Percodan, Presalin, Robaxasil, Roxiprin, Nasir eto, Salocol SK-65 Compound, Sine-Aid, Sine-Off,, [place], Supac, Talwin Compound, Trigesic, Tolectin , Traiminicin, Vanquish, ZORprin, Zomax PRODUCTS CONTAINING IBUPROFEN Advil, Aleve, Haltran, Medipren, Midol, Motrin, Naproxyn, Nuprin, Rufen OTHER PRODUCTS WHICH MAY PROMOTE BLEEDING Vitamin E, Gingko Biloba, Marine Fatty Acids, [place]-3 Fish Oil Supplements documented in this encounter Progress Notes Kristina Carranza MD - 03/22/2018 8:30 AM PDTFormatting of this note might be different fro m the original. [facility] Department of Surgery Foregut Surgery Clinic Note Author: EMMANUEL Adair [facility] PhD Attending Physician: Eleonora Ybarra MD 03/22/2018 Chief Complaint: Assessment of gastroesophageal junctional cancer History of Present Illness: Jacob Sapp is a 67 y.o. 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 Still losing weight - down 3 lbs over the last week Had been unwell for approximately 6 months prior to diagnosis - weight loss and malaise. Had J tube placed in November 2017 - takes 4 cans ensure plus and 150ml of water flushes wit h each can. Currently dysphagia has improved -able to eat small amounts of meat but: - Still has poor taste and appetite. - -Eating very little - a cup in volume Overtly poor mood and affect appears depressed in clinic today [facility] and BP increased so not taking any meds for this at present. 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 No exertional symptoms Review of Systems: Neuro: no TIA or strokes Cardiac: Diagnosed with coronary artery disease after experiencing chest pain - had angio a nd diagnosed with CAD 8-10 years ago - started medications, no stent or interventions requir ed. Never had DC. Pulm: no SOB, no ankle edema GI: see HPI : no dysuria or difficulty urinating Ext: nil A complete review of systems is as per the HPI above, but is otherwise negative. Past Medical History: Diagnosis Date Cervical spinal stenosis Diverticulosis GERD without esophagitis Hernia, hiatal Hyperlipidemia Malignant neoplasm (HCC) stomach cancer Sleep apnea no longer using CPAP since weight loss and not snoring any more Past Surgical History Procedure Laterality Date Cholecystectomy 1974 Vasectomy Appendectomy 2 Incisional hernia repair at appy site repaired x 5 Laparoscopic placement of jejunostomy feeding tube 12/13/2017 Social History Substance Use Topics Smoking status: Former Smoker Quit date: 12/15/1989 Smokeless tobacco: Current User Types: Chew Alcohol use 0.6 oz/week 1 Glasses of wine per week Medications: ASCORBATE CALCIUM (HAJA-C ORAL), Take by mouth. CYCLOBENZAPRINE HCL (CYCLOBENZAPRINE ORAL), Take by mouth three times daily as needed for m uscle spasms (neck). Do not use longer than 2-3 weeks. Indications: neck spasms FISH OIL-DHA-EPA ORAL, Take by mouth. HYDROcodone-acetaminophen 5-325 mg oral tablet, Take 1 tablet by mouth every four hours as needed. Sukmyrjse-Jjkcrggvg-Dd-Mag-Sim 133-98-410-40 mg/30 mL mucous membrane mouthwash, Take 15 mL by mouth four times daily as needed. LORazepam 1 mg oral tablet, Take 1 mg by mouth as needed for anxiety (and sleep). LOVASTATIN ORAL, Take by mouth. multivitamin oral tablet, Take 1 tablet by mouth once daily. omeprazole 10 mg oral capsule,delayed release(DR/EC), Take 10 mg by mouth once daily. ondansetron 8 mg oral tablet, Take 8 mg by mouth every six hours as needed for nausea/vomit ing. propranolol ER (INDERAL LA) 60 mg oral capsule,extended release 24 hr, Take 60 mg by mouth once daily. PSEUDOEPHEDRINE HCL (SUDAFED ORAL), Take by mouth. Use marijuana oil daily to help with appetite and mood and appears to be helping. Allergies: Allergies Allergen Reactions Codeine Unknown OBJECTIVE: Vitals: BP 85/61 | Pulse 75 | Temp -17.8 C (0 F) | RR 15 | Ht 1.727 m (5' 8") | Wt 74.8 kg (164 lb 12.8 oz) | BMI 25.06 kg/(m^2) Physical Exam: GENERAL: Thin, somewhat agitated in clinic, depressed affect objectively NEURO: awake, alert, and oriented LUNGS: Normal respiratory effort CV: RRR ABDOMEN: SNT, open lui and appy scars, J tube site CDI, obvious excess skin Extremities:Warm and well perfused Pathology: no reports received Imaging/Diagnostic Studies: From op report for J tube: Restaging PET CT report 02/26/18: ASSESSMENT: Jacob Sapp is a 67 y.o. 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 He i s weak and debilitated post completion of the therapy and his mood is poor. He had no specif ic complications from neoadjuvant therapy but he has failed to thrive and has continued weig ht loss. He can increase his J tube feeds to full nutritional requirements to help halt this decline. He has had some hearing loss associated with carboplatin chemotherapy - reassessin g his hearing aids might make communication barriers easier to overcome. We discussed next steps in treatment with Mr Sapp and his family. They would like to procee d with surgery and we had a discussion about the conduct of surgery and the recovery period afterwards including common periop complications and altered HRQL and altered GI function po st-op. We would like to reassess the degree of stomach involvement and perform washings for cytolo gy to ensure that the stomach would be a suitable conduit for esophagectomy. A full PARQ ses callie was held with the risks, benefits, alternatives and outcomes discussed in detail includ ing but not limited to damage to surrounding structures, bleeding, SSI. PLAN: Tumor board discussion Restaging CT with IV contrast to assess degree of stomach involvement Restaging laparoscopy +EGD -assess degree of stomach involvement Increase J tube feeds to 7 cans per day and aim to further increase po intake Work on increasing exercise tolerance See PCP for alternative anti-depressant Advised to wean Cesar's oil use in week prior to esophagectomy Dr. Ybarra has seen and examined the patient and agrees with the above plan. Dr Kristina Carranza MIS Fellow, MB [facility] PhD Pager [phone] I saw and evaluated the patient. I agree with the findings and the plan of care as tom godfrey in the fellow s note. Eleonora Ybarra MD [facility] [address]TH FLOOR [address] Mailcode: [address] [place] [address] documented in this encounter Plan of Treatment + +------+--------+ + + | Name | Type | Priori | Associated Diagnoses | Order Schedule | | | | ty | | | + +------+--------+ + + | 12 LEAD ECG | ECG | Routin | Gastroesophageal | Ordered: 03/22/2018 | | | | e | cancer (HCC) | | + +------+--------+ + + documented as of this encounter Results CT CHEST, ABDOMEN AND PELVIS W IV CONTRAST (03/22/2018 2:56 PM PDT) + + | Specimen | + + | | + + + + + | Narrative | Performed At | + + + | EXAM: CT of the chest, abdomen and pelvis with intravenous | [facility] | | contrast. HISTORY: Cancer of the GE junction status post | RADIOLOGY VOICE | | chemoradiation. COMPARISON: PET/CT dated 02/26/[address] dated | RECOGNITION | | 10/21/2017. TECHNIQUE: CT of the chest, abdomen and pelvis with | | | non-ionic iodinated intravenous contrast. Coronal and sagittal | | | reformats were created. FINDINGS: CHEST: The lungs show | | | multiple injection but punctate nodules more prominent in the upper | | | lobes. No definite lung nodules concerning for metastases. No | | | axillary, mediastinal, or hilar lymphadenopathy. Trace pericardial | | | effusion. Significant improvement of the thickening of soft tissue | | | thickening at the GE junction with mild extension to the proximal | | | cardia. A distal right paraesophageal lymph node is smaller today | | | measuring 9 x 7 mm, was 15 x 9 mm previously. LIVER: Stable small | | | hepatic hypodensities, likely cysts or hemangiomas. No new lesions | | | concerning for metastases. BILIARY: Gallbladder is surgically absent; | | | there is mild intra-and extrahepatic biliary dilatation, more | | | prominent compared to prior study but still favored to represent | | | postcholecystectomy change; no evidence of obstructing lesion | | | PANCREAS: Unremarkable. SPLEEN: A splenic hypodensity measuring | | | 8mm today was 10 mm previously, which represent a lymphangioma or | | | hemangioma ADRENALS: Unremarkable. KIDNEYS/URETERS: Bilateral renal | | | cysts as before, no concerning renal lesions PELVIC ORGANS/BLADDER: | | | Unremarkable. GI TRACT: Sigmoid diverticulosis. Jejunostomy tube | | | is visualized. Otherwise unremarkable PERITONEUM: Trace free fluid in | | | the lower pelvis. LYMPH NODES: Decrease in size of lymph node | | | in the gastrohepatic ligament measuring 8 mm in short axis today | | | () was 13 mm previously. A lymph node inferior to the GE junction | | | measures today 11 x 11 mm () was 31 x 31 mm previously. VESSELS: | | | Moderate atherosclerotic calcifications. BONES AND SOFT TISSUES: | | | No suspicious bone lesions. IMPRESSION: 1. Since 10/21/17, | | | interval decrease in size of the GE junction mass, with decrease in | | | size of the regional lymphadenopathy. No evidence of distant | | | metastases. 2. Subtle punctate tree in bud lung nodules, likely | | | infectious or inflammatory. 3. More prominent intra-and extrahepatic | | | biliary digitation with no evidence of obstructing lesion, favored to | | | represent postcholecystectomy change. I have personally | | | reviewed the images and, if necessary, edited the report. I agree | | | with the report as now presented. | | + + + + + | Procedure Note | + + | Service Account, Radiant Res In Interface - 03/22/2018 3:48 PM PDT EXAM: CT of the | | chest, abdomen and pelvis with intravenous contrast.HISTORY: Cancer of the GE junction | | status post chemoradiation.COMPARISON: PET/CT dated 02/26/[address] dated | | 10/21/2017.TECHNIQUE: CT of the chest, abdomen and pelvis with non-ionic iodinated | | intravenous contrast. Coronal and sagittal reformats were created.FINDINGS:CHEST: The | | lungs show multiple injection but punctate nodules more prominent in the upper lobes. No | | definite lung nodules concerning for metastases.No axillary, mediastinal, or hilar | | lymphadenopathy.Trace pericardial effusion.Significant improvement of the thickening of | | soft tissue thickening at the GE junction with mild extension to the proximal cardia. A | | distal right paraesophageal lymph node is smaller today measuring 9 x 7 mm, was 15 x 9 | | mm previously.LIVER: Stable small hepatic hypodensities, likely cysts or hemangiomas. No | | new lesions concerning for metastases.BILIARY: Gallbladder is surgically absent; there | | is mild intra-and extrahepatic biliary dilatation, more prominent compared to prior | | study but still favored to represent postcholecystectomy change; no evidence of | | obstructing lesionPANCREAS: Unremarkable.SPLEEN: A splenic hypodensity measuring 8mm | | today was 10 mm previously, which represent a lymphangioma or hemangiomaADRENALS: | | Unremarkable.KIDNEYS/URETERS: Bilateral renal cysts as before, no concerning renal | | lesionsPELVIC ORGANS/BLADDER: Unremarkable.GI TRACT: Sigmoid diverticulosis. Jejunostomy | | tube is visualized. Otherwise unremarkablePERITONEUM: Trace free fluid in the lower | | pelvis.LYMPH NODES: Decrease in size of lymph node in the gastrohepatic ligament | | measuring 8 mm in short axis today () was 13 mm previously.A lymph node inferior to | | the GE junction measures today 11 x 11 mm () was 31 x 31 mm previously.VESSELS: | | Moderate atherosclerotic calcifications.BONES AND SOFT TISSUES: No suspicious bone | | lesions.IMPRESSION: 1. Since 10/21/17, interval decrease in size of the GE junction | | mass, with decrease in size of the regional lymphadenopathy. No evidence of distant | | metastases.2. Subtle punctate tree in bud lung nodules, likely infectious or | | inflammatory.3. More prominent intra-and extrahepatic biliary digitation with no | | evidence of obstructing lesion, favored to represent postcholecystectomy change.I have | | personally reviewed the images and, if necessary, edited the report. I agree with the | | report as now presented. | | | |BONES AND SOFT TISSUES: No suspicious bone lesions. | | | |IMPRESSION: | | | |1. Since 10/21/17, interval decrease in size of the GE junction mass, with decrease in size of the regional lymphadenopathy. No evidence of distant metastases. | |2. Subtle punctate tree in bud lung nodules, likely infectious or inflammatory. | |3. More prominent intra-and extrahepatic biliary digitation with no evidence of obstructing lesion, favored to represent postcholecystectomy change. | | | | | |I have personally reviewed the images and, if necessary, edited the report. I agree with t he report as now presented. | + + + +---------+ + + | Performing | Address | City/State/Zipcode | Phone Number | | Organization | | | | + +---------+ + + | [facility] | | | | | VOICE RECOGNITION | | | | + +---------+ + + documented in this encounter Visit Diagnoses + + | Diagnosis | + + | Gastroesophageal cancer (HCC) - Primary Malignant neoplasm of cardia | + + documented in this encounter
--- OUTSIDE RECORDS SUMMARY | ~2019-11-23 | XMS | Encounter Summary ---
Demographics + + + | Address | [address] | | | [place] [address] | + + + | Home Phone | | + + + | Preferred Language | Unknown | + + + | Marital Status | | + + + | Baptist Affiliation | CAT | + + + | Race | White | + + + | Ethnic Group | Not or | + + + Author + + + | Author | [facility] | + + + | Organization | [facility] | + + + | [...] Team Providers + +------+ + | Care Granular Operator Name | Role | Phone | + +------+ + | Luis Leiva DO | PCP | | + +------+ + Reason for Referral PROC - Dept/Practice Procedure (Routine) +--------+--------+ + + + + | Status | Reason | Specialty | Diagnoses / | Referred By | Referred To | | | | | Procedures | Contact | Contact | +--------+--------+ + + + + | Closed | | Radiation | Diagnoses | Wesley | [facility] | | | | Oncology | Malignant | Cony | Alicia [address] | | | | | neoplasm of | MD [address] | [address] | | | | | lower third | [address] | [address] | | | | | of esophagus | [address] | Mailcode: | | | | | (HCC) | [facility], [place] | [address] | | | | | Procedures | [address] | [facility] | | | | | SIMULATION | Phone: | Hospital | | | | | IMAGING | [phone] | [facility] | | | | | | Fax: | [place], [place] | | | | | | [phone] | [address] | | | | | | | Phone: | | | | | | | [phone] | | | | | | | Fax: | | | | | | | [phone] | +--------+--------+ + + + + Reason for Visit PROC - Dept/Practice Procedure (Routine) +--------+--------+ + + + + | Status | Reason | Specialty | Diagnoses / | Referred By | Referred To | | | | | Procedures | Contact | Contact | +--------+--------+ + + + + | Closed | | Radiation | Diagnoses | Wesley, | [facility] | | | | Oncology | Malignant | Cony | Alicia [address] | | | | | neoplasm of | [address] | [address] | | | | | lower third | [address] | [address] | | | | | of esophagus | [address] | Mailcode: | | | | | (HCC) | [place], [place] | [address] | | | | | Procedures | [address] | [facility] | | | | | SIMULATION | Phone: | Hospital | | | | | IMAGING | [phone] | [facility] | | | | | | Fax: | [place], [place] | | | | | | [phone] | [address] | | | | | | | Phone: | | | | | | | [phone] | | | | | | | Fax: | | | | | | | [phone] | +--------+--------+ + + + + Encounter Details +--------+ + + + + | Date | Type | Department | Care Team | Description | +--------+ + + + + | 12/14/ | Hospital | Radiation Oncology | Daniel Barrera, | | | 2018 | Encounter | at [facility] [address] | [address] | | | | | [place] | [address] | | | | | [id number] [facility] | [place], [place] | | | | | [facility], | [address] | | | | | [place] [address] | [phone] | | | | | [phone] | | | +--------+ + + + [...] | + +--------+ + + + | SIMULATION IMAGING | Routin | 12/14/2017 | Malignant neoplasm | Results for this | | | e | 8:13 AM | of lower third of | procedure are in the | | | | PST | esophagus (HCC) | results section. | + +--------+ + + + documented in this encounter Results SIMULATION IMAGING (12/14/2017 8:13 AM PST) + + | Specimen | + + | | + + + + + | Narrative | Performed At | + + + | Refer to the | | | encounter notes for imaging results. | | + + + documented in this encounter Visit Diagnoses + + | Diagnosis | + + | Malignant neoplasm of lower third of esophagus (HCC) Malignant neoplasm of lower | | third of esophagus | + + documented in this encounter"
--- OUTSIDE RECORDS SUMMARY | ~2019-11-23 | XMS | Encounter Summary ---
Demographics + + + | Address | [address] | | | [place] [address] | + + + | Home Phone | | + + + | Preferred Language | Unknown | + + + | Marital Status | | + + + | Restorationist Affiliation | CAT | + + + | Race | White | + + + | Ethnic Group | Not or | + + + Author + + + | Author | [facility] | + + + | Organization | [facility] | + + + | [...] Team Providers + +------+ + | Care Tiltrotor Crew Chief Name | Role | Phone | [...] | +--------+ + + + + | 12/24/ | Hospital | Hematology/Medical | Rn, Fast Track | | | 2019 | Encounter | Oncology at [facility] | [address] | | | | | [address] | [place] [address] | | | | | Mailcode: [facility] | | | | | | [facility] | | | | | | Healing, [place] [address] | | | | | | [place], [place] | | | | | | [address] | | | | | | [phone] | | | +--------+ + + + [...] encounter Progress Notes Jeffery, MARIAJOSE Fernandez - 12/24/2018 8:43 AM PST22g PIV placed in patient's R AC. CBC and CMP were drawn via PIV, resulted via POC and other labs were drawn via PIV and sent to lab. Pat ient tolerated without incident. Patient discharged to provider visit. documented in this encounter Plan of Treatment Not on filedocumented as of this encounter Procedures + +--------+ + + + | Procedure Name | Priori | Date/Time | Associated Diagnosis | Comments | | | ty | | | | + +--------+ + + + | COMPLETE METABOLIC | Routin | 12/24/2018 | Malignant neoplasm | | | PANEL - OLP | e | 9:04 AM | of lower third of | | | | | PST | esophagus (HCC) | | + +--------+ + + + | CMP, POC (BMP+LFT) | Routin | 12/24/2018 | Malignant neoplasm | Results for this | | | e | 9:04 AM | of lower third of | procedure are in the | | | | PST | esophagus (HCC) | results section. | + +--------+ + + + | CBC WITH AUTO DIFF - | Routin | 12/24/2018 | Malignant neoplasm | | | OLP | e | 9:03 AM | of lower third of | | | | | PST | esophagus (HCC) | | + +--------+ + + + | CBC+DIFF,POC | Routin | 12/24/2018 | Malignant neoplasm | Results for this | | | e | 9:03 AM | of lower third of | procedure are in the | | | | PST | esophagus (HCC) | results section. | + +--------+ + + + | LIPASE, PLASMA | Routin | 12/24/2018 | Malignant neoplasm | Results for this | | | e | 8:46 AM | of lower third of | procedure are in the | | | | PST | esophagus (HCC) | results section. | + +--------+ + + + | LDH TOTAL, PLASMA | Routin | 12/24/2018 | Malignant neoplasm | Results for this | | | e | 8:46 AM | of lower third of | procedure are in the | | | | PST | esophagus (HCC) | results section. | + +--------+ + + + | AMYLASE, PLASMA | Routin | 12/24/2018 | Malignant neoplasm | Results for this | | | e | 8:46 AM | of lower third of | procedure are in the | | | | PST | esophagus (HCC) | results section. | + +--------+ + + + documented in this encounter Results CMP, POC (BMP+LFT) (12/24/2018 9:04 AM PST) + +---------+ + + + [...] +---------+ + + + | POTASSIUM, | 3.3 (L) | 3.4 - 5.0 | [facility] [...] +---------+ + + + | GLUCOSE, | 124 (H) | 60 - 99 mg/dL | [facility] | | | POC | | | POINT OF | | | | | | CARE TESTS | | + +---------+ + + + | CALCIUM | 9.4 | 8.6 - 10.2 | [facility], | | | TOTAL, POC | | mg/dL | POINT OF | | | | | | CARE TESTS | | + +---------+ + + + | BUN, POC | 7 | 6 - 20 mg/dL | [facility], | | | | | | POINT OF | | | | | | CARE TESTS | | + +---------+ + + + | CREATININE, | 0.8 | 0.7 - 1.3 mg/dL | [facility], | | | POC | | | POINT OF | | | | | | CARE TESTS | | + +---------+ + + + | ALK PHOS, | 96 (H) | 43 - 92 U/L | [facility], | | | CMP POC | | | POINT OF | | | | | | CARE TESTS | | + +---------+ + + + | ALT, CMP | 90 (H) | 0 - 60 U/L | [facility] | | | POC | | | POINT OF | | | | | | CARE TESTS | | + +---------+ + + + | AST, CMP | 103 (H) | 0 - 41 U/L | [facility], | | | POC | | | POINT OF | | | | | | CARE TESTS | | + +---------+ + + + | BILIRUBIN | 0.7 | 0.3 - 1.2 mg/dL | [facility], | | | TOTAL, CMP | | | POINT OF | | | POC | | | CARE TESTS | | + +---------+ + + + | ALBUMIN, | 3.0 (L) | 3.5 - 4.7 g/dL | [facility] | | | CMP POC | | | POINT OF | | | | | | CARE TESTS | | + +---------+ + + + | PROTEIN | 6.7 | 6.4 - 8.2 g/dL | [facility], | | | TOTAL, CMP | | [...] | [facility], POINT | [address] | [place] [address] | | | OF CARE TESTS | | | | + + + + + CBC+DIFF,POC (12/24/2018 9:03 AM PST) + + + + + + | Component | Value | Ref Range | Performed | Pathologist | | | | | At | Signature | + + + + + + | WBC POC | 3.0 (L) | 3.5 - 10.8 | [facility] | | | | | 10*3/uL | POINT OF | | | | | | CARE TESTS | | + + + + + + | RBC POC | 2.93 (L) | 4.50 - 6.00 | [facility], | | | | | 10*6/uL | POINT OF | | | | | | CARE TESTS | | + + + + + + | HGB POC | 10.0 (L) | 13.5 - 17.5 | [facility], | | | | | g/dL | POINT OF | | | | | | CARE TESTS | | + + + + + + | HCT POC | 29.6 (L) | 41.0 - 53.0 % | [facility], | | | | | | POINT OF | | | | | | CARE TESTS | | + + + + + + | MCV POC | 101.0 (H) | 80.0 - 100 fL | [facility], | | | | | | POINT OF | | | | | | CARE TESTS | | + + + + + + | MCH POC | 34.1 (H) | 27.0 - 34.0 pg | [facility], | | | | | | POINT OF | | | | | | CARE TESTS | | + + + + + + | MCHC POC | 33.8 | 32.0 - 36.0 | [facility], | | | | | g/dL | POINT OF | | | | | | CARE TESTS | | + + + + + + | RDW SD, POC | 48.3 (H) | 35.1 - 46.3 fL | [facility], | | | | | | POINT OF | | | | | | CARE TESTS | | + + + + + + | PLT POC | 170 | 150 - 400 | [facility], | | | | | 10*3/uL | POINT OF | | | | | | CARE TESTS | | + + + + + + | MPV POC | 8.4 (L) | 9.7 - 12.3 fL | [facility] | | | | | | POINT OF | | | | | | CARE TESTS | | + + + + + + | NEUTROPHIL% | 64.8 | 50.0 - 70.0 % | [facility] | | | POC | | | POINT OF | | | | | | CARE TESTS | | + + + + + + | LYMPH% POC | 15.9 (L) | 18 - 42 % | [facility], | | | | | | POINT OF | | | | | | CARE TESTS | | + + + + + + | MONO %, POC | 12.5 (H) | 3.5 - 9.0 % | [facility] | | | | | | POINT OF | | | | | | CARE TESTS | | + + + + + + | EOS %, POC | 6.1 (H) | 1.0 - 3.0 % | [facility] | | | | | | POINT OF | | | | | | CARE TESTS | | + + + + + + | BASO %, POC | 0.7 | 0.0 - 2.0 % | [facility], | | | | | | POINT OF | | | | | | CARE TESTS | | + + + + + + | NEUTROPHIL# | 1.9 | 1.8 - 7.7 | [facility], | | | POC | | 10*3/uL | POINT OF | | | | | | CARE TESTS | | + + + + + + | LYMPH# POC | 0.5 (L) | 1.0 - 4.8 | [facility] | | | | | 10*3/uL | POINT OF | | | | | | CARE TESTS | | + + + + + + | MONO #, POC | 0.4 | 0.1 - 0.9 | [facility], | | | | | 10*3/uL | POINT OF | | | | | | CARE TESTS | | + + + + + + | EOS #, POC | 0.2 | 0.0 - 0.5 | [facility] [...] | + + + + + | MARISELA SANDHU | [address] | [place] [address] | | | OF CARE TESTS | | | | + + + + + AMYLASE, PLASMA (12/24/2018 8:46 AM PST) + [...] [facility] | [address] | [place] [address] | | | SERVICES, CORE | PARK [...] [facility] | [address] | [place] [address] | | | SERVICES, CORE | PARK [...] | + + + + + | [facility] | [address] | [place] [address] | | | SERVICES, CORE | [address] | | | + + + + + documented in this encounter Visit Diagnoses + + | Diagnosis | + + | Malignant neoplasm of lower third of esophagus (HCC) Malignant neoplasm of lower | | third of esophagus | + + documented in this encounter"
--- OUTSIDE RECORDS SUMMARY | ~2019-11-23 | XMS | Encounter Summary ---
Demographics + + + | Address | [address] | | | [place] [address] | + + + | Home Phone [...] Team Providers + +------+ + | Care Laundry Superintendent Name | Role | Phone | + [...] | [address] | [address] [facility] | | | | | lower third | [facility] | [facility] | | | | | of esophagus | [facility] | Rd | | | | | Esophagus | Road | [facility] [place] | | | | | Ca | [facility] [place] | [address] | | | | | Procedures | [address] | Phone: | | | | | Consult, | Phone: | [phone] | | | | | Sage Wilkins | [phone] | Fax: | | | | | | Fax: | [phone] | | | | | | [phone] | | +--------+--------+ + + + + Encounter Details +--------+ + + + + | Date | Type | Department | Care Team | Description | +--------+ + + + + | 01/07/ | Hospital | Radiation Oncology | | | | 2018 | Encounter | at [facility] [address] | | | | | | [place] | | | | | | [id number] [facility] | | | | | | HOSPITAL [place], | | | | | | [place] [address] | | | | | | [phone] | | | +--------+ + + + [...]
--- OUTSIDE RECORDS SUMMARY | ~2019-11-23 | XMS | Encounter Summary ---
Demographics + + + | Address | [address] | | | [place] [address] | + + + | Home Phone [...] Team Providers + +------+ + | Care District Sales Leader Name | Role | Phone | [...] | | Malignant | Krunal | s [address] | | | | | neoplasm of | ,PhD [address] | [address] | | | | | lower third | [address] | [address] | | | | | of esophagus | [place], | Mailcode: | | | | | (HCC) | [place] | [address] [facility] | | | | | Procedures | [address] | Hospital | | | | | CT CHEST, | Phone: | [place], [place] | | | | | ABDOMEN AND | [phone] | [address] | | | | | PELVIS W IV | Fax: | Phone: | | | | | CONTRAST SD | [phone] | [phone] | | | | | CAT SCAN OF | | Fax: | | | | | CHEST | | [phone] | | | | | CONTRAST SD | | | | | | | [...] + + + + | 02/04/ | Software Test Analyst | Hematology | Krunal Godoy, | Malignant neoplasm | | 2019 | | Oncology Study [address] | ,PhD [address] | of lower third of | | | | [address] | Ave [place], [place] | esophagus (HCC) | | | | Mailcode: CH7M | [address] | (Primary Dx) | | | | [facility] | [phone] | | | | | and Monika, | | | | | | [facility] | | | | | | Floor [place], [place] | | | | | | [address] | | | | | | [phone] | | | +--------+ + + + [...] lower | | lobe measuring 5 mm (/) was punctate previously. Other scattered sub-5 mm [...]
--- OUTSIDE RECORDS SUMMARY | ~2019-11-23 | XMS | Encounter Summary ---
Demographics + + + | Address | [address] | | | [place] [address] | + + + | Home Phone | | + + + | Preferred Language | Unknown | + + + | Marital Status | | + + + | Shinto Affiliation | CAT | + + + [...] Team Providers + +------+ + | Care Carbon Blocks Press Operator Name | Role | Phone | + +------+ + | Christos Olivarez MD | PCP | | + +------+ + Encounter Details +--------+ + + + + | Date | Type | Department | Care Team | Description | +--------+ + + + + | 08/12/ | Sports Broadcaster | Center for | Krunal Godoy, | | | 2019 | | Hematologic | ,PhD [address] | | | | | [facility] at [facility] | Ave [place], [place] | | | | | [address] | [address] | | | | | Mailcode: [place] | [phone] | | | | | for Health and | | | | | | [facility] | | | | | | [place], [place] | | | | | | [address] | | | | | | [phone] | | | +--------+ + + + [...]
--- OUTSIDE RECORDS SUMMARY | ~2019-11-23 | XMS | Encounter Summary ---
Demographics + + + | Address | [address] | | | [place] [address] | + + + | Home Phone | | + + + | Preferred Language | Unknown | + + + | Marital Status | | + + + | Adventism Affiliation | [id number] | + + + | Race | Unknown | + + + | Ethnic Group | Unknown | + + + Author + + + | Author | [facility] | | | and [place] | + + + | Organization | [facility] | | | and [place] | + + + | Address | Unknown | + + + | Phone | Unavailable | + + + Support + + +---------+ + | Name | Relationship | Address | Phone | + + +---------+ + | Dudley Sapp | ECON | Unknown | | + + +---------+ + Care Team Providers + +------+ + | Care Electrician'S Assistant Name | Role | Phone | + +------+ + PCP | Unavailable | + +------+ + Reason for Visit + + + | Reason | Comments | + + + | Appointment | | + + + Encounter Details +--------+ + + + + | Date | Type | Department | Care Team | Description | +--------+ + + + + | 10/08/ | Telephone | [facility] | Antonio Conteh MD | Appointment | | 2012 | | GASTROENTEROLOGY | [address] | | | | | [address] | [address] [place], [place] | | | | | [address] [place], [place] | [address] | | | | | [address] | | | | | | [phone] | | | +--------+ + + + [...]
--- OUTSIDE RECORDS SUMMARY | ~2019-11-23 | XMS | Encounter Summary ---
Demographics + + + | Address | [address] | | | [place] [address] | + + + | Home Phone [...] Team Providers + +------+ + | Care Fiber Technician Name | Role | Phone | + +------+ + | Christos Olivarez MD | PCP | | + +------+ + Encounter Details +--------+ + + + + | Date | Type | Department | Care Team | Description | +--------+ + + + + | 10/10/ | Solutions Manager | Hematology | Marie Liz, | Malignant neoplasm | | 2018 | | Oncology Study [address] | [address] | of lower third of | | | | [address] | [address] | esophagus (HCC) | | | | Mailcode: CH7M | [place] [address] | (Primary Dx) | | | | [facility] | [phone] | | | | | and Monika, | | | | | | [facility] | | | | | | Floor [place], [place] | | | | | | [address] | | | | | | [phone] | | | +--------+ + + + [...] | Routin | Malignant neoplasm | Expected: 10/15/2018 | | TUBES | Blood Draw | e | of lower third of | (Approximate), | | | | | esophagus (HCC) | Expires: 11/09/2019 | + + +--------+ + + documented as of this encounter Results AMYLASE, PLASMA (10/15/2018 8:22 AM PST) + +-------+ + + + | Component | Value | Ref Range | Performed | Pathologist | | | | | At | Signature | + +-------+ + + + | AMYLASE,KATHY | 26 | 25 - 115 U/L | [facility] [...] | + + + + + | [facility] | [address] | [place] [address] | | | SERVICES, CORE | [address] | | | + + + + + LDH TOTAL, PLASMA (10/15/2018 8:22 AM PST) + +---------+ + + + | Component | Value | Ref Range | Performed | Pathologist | | | | | At | Signature | + +---------+ + + + | LD TOTAL, | 168 | <=250 U/L | [facility] | | [...] [facility] | [address] | [place] [address] | | | SERVICES, CORE | [address] | | | + + + + + FREE T3, SERUM (10/15/2018 8:22 AM PST) + + + + + + | Component | Value | Ref Range | Performed | Pathologist | | | | | At | Signature | + + + + + + | FREE T3 | 2.2 (L)Comment: | 2.4 - 4.2 pg/mL | [facility] | | | | REFERENCE INTERVAL: | [...] | | | this test in the [employer] | | | | | | Laboratory Test | | | | | | Directory | | | | | | ([employer]).Performed | | | | | | by [facility],[address] | | | | | | Aaron Jackson, [facility],[place] | | | | | | [address] | | | | | | [phone]. | | | | | | [facility] hospital[facility]andra[facility] MD, | | | | | | [...] [facility] | [address] | [place], [place] | | | [facility] | | [address] | | + + + + + documented in this encounter Visit Diagnoses + + | Diagnosis | + + | 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
--- OUTSIDE RECORDS SUMMARY | ~2019-11-23 | XMS | Encounter Summary ---
Demographics + + + | Address | [address] | | | [place] [address] | + + + | Home Phone | | + + + | Preferred Language | Unknown | + + + | Marital Status | | + + + | Baptism Affiliation | CAT | + + + | Race | White | + + + | Ethnic Group | Not or | + + + Author + + + | Author | [facility] | + + + | Organization | [facility] | + + + | [...] Team Providers + +------+ + | Care Patcher Helper Name | Role | Phone | + +------+ + | Christos Olivarez MD | PCP | | + +------+ + Reason for Visit Intake Referral (Routine) +--------+--------+ + + + + | Status | Reason | Specialty | Diagnoses / | Referred By | Referred To | | | | | Procedures | Contact | Contact | +--------+--------+ + + + + | Closed | | Hematology & | Diagnoses | Sarai, | Agusto, | | | | Oncology | Malignant | Neftali | Marie Ramirez MD | | | | | neoplasm of | ,PhD [address] | [address] | | | | | esophagus, | [address] | | | | | unspecified | [facility] | [address] | | | | | [address] | [place], [place] | | | | | | [facility] | [address] Phone: | | | | | | [place] [address] | [phone] | | | | | | Phone: | Fax: | | | | | | [phone] | [phone] | | | | | | Fax: | | | | | | | [phone] | | +--------+--------+ + + + + Encounter Details +--------+---------+ + + + | Date | Type | Department | Care Team | Description | +--------+---------+ + + + | 08/21/ | Office | Hematology/Medical | Marie Liz, | Malignant neoplasm | | 2018 | Visit | [facility] | [address] | of lower third of | | | | [facility] | [address] | esophagus (HCC) | | | | [address] | [place] [address] | (Primary Dx) | | | | Mailcode: [facility] | [phone] | | | | | for [facility] and | | | | | | Healing, [address] | | | | | | [place], [place] | | | | | | [address] | | | | | | [phone] | | | +--------+---------+ + + + [...] + + + | Blood Pressure | 140/84 | 08/21/2018 12:29 PM | | | | | PDT | | + + + + + | Pulse | 108 | 08/21/2018 12:29 PM | | | | | PDT | | + + + + + | Temperature | 36.3 C (97.4 F) | 08/21/2018 12:29 PM | | | | | PDT | | + + + + + | Respiratory Rate | 16 | 08/21/2018 12:29 PM | | | | | PDT | | + + + + + | Oxygen Saturation | 99% | 08/21/2018 12:29 PM | | | | | PDT | | + + + + + | Inhaled Oxygen | - | - | | | Concentration | | | | + + + + + | Weight | 70.2 kg (154 lb 12.8 | 08/21/2018 12:29 PM | | | | oz) | PDT | | + + + + + | Height | - | - | | + + + + + | Body Mass Index | 23.54 | 2018 9:58 AM | | | | | PDT [...] as of this encounter Progress Notes Ad Tanner, MARIAJOSE - 08/21/2018 12:30 PM PDTFormatting of this note might be different from t he original. I saw Mr. Sapp today as he has consented to participate in the "[id number]: A Randomized, Mu lticenter, Double Blind, Phase III Study of Adjuvant Nivolumab or Placebo in Subjects with R esected Lower Esophageal, or Gastroesophageal Junction Cancer (CheckMate 577: CHECKpoint pat chay and nivoluMab clinical Trial Evaluation 577)". This is his screening visit to assess th e patient prior to beginning treatment pending randomization. He was seen by Dr. Marie Liz and myself. OF NOTE: Prohibited medications: Labs were reviewed: yes ECO Accompanied today by: Baseline stool count: Baseline neuropathy: none Baseline weight: 70.2 kg IV access: PIV RD/SW referral: sld educational aide at [facility] established Multi-D MD: Chemotherapy teaching: done per chemo binder and [facility] My Chart access: active and encouraged He reports the following medical and surgical [...] oil 1500mg tab PO daily General health 2008 Trisha-C 1 tab PO daily General health [...] 2002 Constipation, grade 1 intermittent, started 05/2018 Patient reports [facility] [place] [place]. Radiation compl eted at [facility]. Marie Murphy Md - 08/21 12:30 PM PDT Oncology Assessment: Cancer Staging Malignant neoplasm [...] or no response, score 3) - 07/31/2018 [facility] Medical oncology evaluation- offered enrollment on Checkmate 577 trial, Nivo vs. Plac sabrina for adjuvant therapy, consent signed Plan/ Recommendations: 1. Cancer Staging Malignant neoplasm of lower third of esophagus (HCC) Staging form: Esophagus - Adenocarcinoma, AJCC 8th Edition - Clinical: No stage assigned - Unsigned - Pathologic: Stage IIIB (pT3, pN2, cM0) - Signed by Marie Liz MD on 07/31/2018 - He is screening for the above trial - Labs are ok, baseline imaging is negative for disease. - he has no other significant medical issues, no active cardiac hx, no autoimmune history, no prior cancer, he is a good candidate Orders Placed This Encounter omeprazole (PRILOSEC) 20 mg oral capsule,delayed release(DR/EC) tamsulosin (FLOMAX) 0.4 mg oral capsule No follow-up information. Interval History: Jacob Sapp returns to clinic today for No chief complaint on file. 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 Past Medical History: Diagnosis Date Cervical spinal stenosis Coronary artery disease 2007 diagnosed on angiogram when experienced chest pain - treated with medications, pain attrib uted to esophageal spasm, never had IL or stent Diverticulosis GERD without esophagitis Hernia, hiatal Hyperlipidemia LBBB (left bundle branch block) Malignant neoplasm (HCC) stomach cancer Sleep apnea no longer using CPAP since weight loss and not snoring any more Family Hx- reviewed, see scanned document Social History Substance Use Topics Smoking status: Former Smoker Quit date: 12/15/1989 Smokeless tobacco: Former User Types: Chew Quit date: 01/17/2018 Alcohol use 0.6 oz/week 1 Glasses of wine per week Current Outpatient Prescriptions Medication Sig DULoxetine 30 [...] Remaining 10 systems reviewed, see scanned document Physical Examination: BP 140/84 | Pulse 108 | Temp (Src) 36.3 C (97.4 F) (Oral) | RR 16 | Wt 70.2 kg (154 lb 12.8 oz) | SpO2 99% | BMI 23.54 kg/(m^2) ECOG PS: 1 Gen: Well-developed, well-nourished, [...] Lab Results Component Value Date NA 141 05/22/2018 K 4.3 05/22/2018 CL 108 05/22/2018 BICARB 26 05/22/2018 BUN 22 (H) 05/22/2018 CR 0.52 (L) 05/22/2018 GLU 105 (H) 05/22/2018 CA 8.2 (L) 05/22/2018 AST 28 04/30/2018 ALT 29 04/30/2018 AP 102 04/30/2018 TBILI 0.6 04/30/2018 TP 7.1 04/30/2018 ALB 2.4 (L) 05/22/2018 Lab Results Component Value Date WBC 3.66 08/21/2018 HB 11.7 08/21/2018 HCT 34.3 08/21/2018 PLT 183 08/21/2018 MCV 100.3 08/21/2018 RDW 48.7 08/21/2018 Imaging: Current and prior CTs were personally reviewed, agree with report documented in this encou nter Plan of Treatment Not on filedocumented as of this encounter Visit Diagnoses + + | Diagnosis | + + | Malignant neoplasm of lower third of esophagus (HCC) - Primary Malignant neoplasm of | | lower third of esophagus | + + documented in this encounter
--- OUTSIDE RECORDS SUMMARY | ~2019-11-23 | XMS | Encounter Summary ---
Demographics + + + | Address | [address] | | | [place] [address] | + + + | Home Phone | | + + + | Preferred Language | Unknown | + + + | Marital Status | | + + + | Orthodoxy Affiliation | CAT | + + + | Race | White | + + + | Ethnic Group | Not or | + + + Author + + + | Author | [facility] | + + + | Organization | [facility] | + + [...] Team Providers + +------+ + | Care Butadiene Converter Helper Name | Role | Phone | + +------+ + | Christos Olivarez MD | PCP | | + +------+ + Encounter Details +--------+ + + + + | Date | Type | Department | Care Team | Description | +--------+ + + + + | 03/20/ | Tax Collector | Hematology | Krunal Godoy, | Malignant neoplasm | | 2019 | | Oncology Study [address] | ,PhD [address] | of lower third of | | | | [address] | [place], [place] | esophagus (HCC) | | | | Mailcode: CH7M | [address] | (Primary Dx) | | | | [facility] | [phone] | | | | | and Monika, | | | | | | [facility] | | | | | | [place], [place] | | | | | | [address] | | | | | | [phone] | | | +--------+ + + + [...] as of this encounter Results AMYLASE, PLASMA (03/26/2019 9:55 AM PDT) + [...] + + + + | [facility] | [address] | [place] [address] | | | SERVICES, CORE | PARK [...] [facility] | [address] | [place] [address] | | | SERVICES, CORE | PARK [...] + + + + | [facility] [employer] | [address] | [place] [address] | | | SERVICES, CORE | [address] | | | + + + + + [facility] - COMPLETE METABOLIC SET (03/26/2019 9:55 [...] + + + + + | [facility] | [address] | [place] [address] | | | [facility] [...]
--- OUTSIDE RECORDS SUMMARY | ~2019-11-23 | XMS | Encounter Summary ---
Demographics + + + | Address | [address] | | | [place] [address] | + + + | Home Phone [...] Team Providers + +------+ + | Care Coal Equipment Operator Name | Role | Phone | + +------+ + | Luis Leiva DO | PCP | | + +------+ + Encounter Details +--------+ + + + + | Date | Type | Department | Care Team | Description | +--------+ + + + + | 02/20/ | Document-Sc | Health Information | Unknown . | | | 2018 | anned | Services [address] | | | | | [address] | | | | | | Mailcode: [id number] | | | | | | [facility] | | | | | | [place], [place] | | | | | | [address] | | | | | | [phone] | | | +--------+ + + + [...]
--- OUTSIDE RECORDS SUMMARY | ~2019-11-23 | XMS | Encounter Summary ---
Demographics + + + | Address | [address] | | | [place] [address] | + + + | Home Phone | | + + + | Preferred Language | Unknown | + + + | Marital Status | | + + + | Hinduism Affiliation | CAT | + + + [...] Team Providers + +------+ + | Care Mint Machine Operator Name | Role | Phone | [...] | [address] | [address] [facility] | | | | | lower third | [facility] | [facility] | | | | | of esophagus | [facility] | Rd | | | | | Esophagus | Road | [facility] [place] | | | | | Ca | [facility] [place] | [address] | | | | | Procedures | [address] | Phone: | | | | | Consult, | Phone: | [phone] | | | | | Sage Wilkins | [phone] | Fax: | | | | | | Fax: | [phone] | | | | | | [phone] | | +--------+--------+ + + + + Encounter Details +--------+ + + + + | Date | Type | Department | Care Team | Description | +--------+ + + + + | 01/22/ | Hospital | Radiation Oncology | | | | 2017 | Encounter | at [facility] [address] | | | | | | [place] | | | | | | [id number] [facility] | | | | | | [facility] [place], | | | | | | [place] [address] | | | | | | [phone] | | | +--------+ + + + [...]
--- OUTSIDE RECORDS SUMMARY | ~2019-11-23 | XMS | Encounter Summary ---
Demographics + + + | Address | [address] | | | [place] [address] | + + + | Home Phone | | + + + | Preferred Language | Unknown | + + + | Marital Status | | + + + | Hoahaoism Affiliation | CAT | + + + | Race | White | + + + | Ethnic Group | Not or | + + + Author + + + | Author | [facility] | + + + | Organization | [facility] | + + + | [...] Providers + +------+ + | Care Stage Settings Painter Name | Role | Phone | + [...] | +--------+ + + + + | 05/14/ | Hospital | [facility] [address] | Juvenal Vicente MD | | | 2018 - | Encounter | [facility] Mailcode: | [address] | | | | | [id number] Juan | Katherine French [place], | | | 05/22/ | | [place], | [place] [address] | | | 2017 | | [place] [address] | [phone] | | | | | [phone] | | | +--------+ + + + [...] for a total o f 90 days. eavtnrgjqscj-uhkq-mtxqqedd Liqd Commonly known as: CEROVITE 15 mL [...] documented as of this encounter Progress Notes Cherie Zamora MD - 05/21/2018 7:18 AM PDTFormatting of this note might be different f rom the original. Thoracic Surgery Brief Inpatient Progress Note Patient name: JACOB IVERSON Attending: Dalton Wisdom MD Procedure day: 7 [...] Zamora MD General Surgery, R4 Pager # [phone] cott, Brian Torres MD - 05/21/2018 7:03 AM PDT RED [...] MD Otolaryngology-Head & Neck Surgery, PGY1 Pager: [phone] Cherie Norwood MD - 05/20/2018 12:50 PM PDT Thoracic [...] Zamora MD General Surgery, R4 Pager # [phone] Bebe Leija MD - 8:58 AM PDT [...] pain medications per primary team, pt prefers [place] APS will sign off, please re-page with [...] on pathway. Today's goals: - Will trial johns w/ MD at bedside #sp 3field ALEX -strict NPO -TF to 30 -up and ambulate, IS -continue amiodarone prophylaxis per pathway -ppi, scheduled reglan -daily CXR until CTs out - Esophagram tomorrow, ordered #HTN #CAD -home propranolol via Jtube -ASA, statin Disposition: home Sunday if remains on pathway Brian Villafuerte MD Otolaryngology-Head & Neck Surgery, PGY1 Pager: [phone] Chula Bishop MD - 05/19 8:38 AM [...] MD Otolaryngology-Head & Neck Surgery, PGY1 Pager: [phone] STAFF: I personally interviewed the patient, performed [...] and summary of old medical records (source: [facility]), as summarized in the body of the note. Discussion of case with another healthcare provider Nurse. Please page APS #[phone] with questions and concerns. TRINO ROACH MD [...] week Darin Zaragoza MD General Surgery PGY2 [id number] STAFF: I personally interviewed the patient, performed the pertinent parts of the physical examina tion and personally formulated the plan with the resident. I agree with the residents docum entation and have documented any additions or exceptions. Eleazar Roy, Tamera sage - 05/18/2018 8:54 AM PDT INPATIENT ADULT [...] and summary of old medical records (source: [facility]), as summarized in the body of the note. Discussion of case with another healthcare provider Nurse, surgery. Please page APS #[phone] with questions and concerns. TRINO ROACH MD Slim Augsut NP - 05/17/2018 7:53 AM PDTFormatting of [...] Wilkerson status: Epidural: at thoracic level; If Wilekrson is in place, it may be removed [...] scheduled Discussed with RN. Please page APS #[phone] with questions and concerns. Tio Siegel NP [...] Intake/Output Summary (Last 24 hours) at 05/17/18 0641 Last data filed at 05/17/18 0600 Gross [...] and appreciate APS -remove wilkerson -transfer to [facility] with telemetry - Start suppository - Removeal [...] pending -PPI -scheduled reglan -NGT stays to [facility] for now HENT: -keep CHELLE until less than 30 FEN -replete lytes Mg >2 and K>4 and check dialy -STRICT NPO Renal No active issues or concerns Remove today ID No active issues Heme PPx lovenox Daily labs for now Endo -monitor, blood sugars controlled no DM Disposition: transfer to [facility] Brian Villafuerte MD Otolaryngology-Head & Neck Surgery, PGY1 Pager: [phone] STAFF: I personally interviewed the patient, performed [...] subQ air on right. Assessment and Plan: Jacob Iverson is a [...] wilkerson later today after diuresis -transfer to 13k with telemetry Neuro #pain: appreciate APS, epidrual [...] sugars controlled no DM Disposition: transfer to [facility] Seen and discussed with Dr Chula Pal MD Signed: DARIN ZARAGOZA MD General Surgery [facility] Department of Surgery STAFF: I personally interviewed [...] attrib uted to esophageal spasm, never had TN or stent Diverticulosis GERD without esophagitis Hernia, [...] IV 100 mL/hr intravenous CONTINUOUS Stopped (05/16/18 07) Type: Epidural Rate: 14 mL/hour Anticoagulants: Enoxaparin [...] Evelyn Mancia NP Adult Pain Service Pager [phone] Team Pager [phone] Darius Chu MD - 05/16/2018 7:46 AM [...] Hematology: Mild Anemia - H&H stable at 9.5/ - Continue to monitor Infectious Diseases: No active issues Endocrinology: No active issues Musculoskeletal/Skin: No active issues Feeding: Start trickle feeds today Analgesia: APAP, oxy, HM Sedation: None Thromboembolic Prophylaxis: Lovenox Head of Bed:>30 degrees Ulcer Prophylaxis: Omeprazole Glycemic Control/Monitoring: CBG's stable Y: None B: None till taking enteral feeds I: Deescalation of Antibiotics: None Spines:Cleared CODE: Full Disposition: Transfer to [facility] Chula Liao MD Emergency Medicine Resident, PGY2 [facility] Pager #[phone] I saw and evaluated the patient. I agree with the findings and the plan of care as tom godfrey in the resident s note. DARIUS PIEDRA MD [address] [place] [id number] eidy Gusman PA- C - 05/15/2018 11:22 AM PDT Trauma and Surgical ICU Daily Progress Note Author: LEIDY GUSMAN PA-C Date: 05/15/2018 11:23 AM Hospital Day: 1 ICU Day: 2 HPI: Jacob Iverson is a 67 y.o. M with CAD (on ASA, statin, beta chel, no stents), HLD, HTN , depression, [id number] esophageal adenocarcinoma diagnosed in 11/11 after workup [...] in conjunction with my s upervising physicians. STEPHANIA MOREC Division of Trauma Department of Surgery Mail Code: [id number] [address] [phone] Associated attestation - Debra Jon MD,MPH - [...] IS, OOB to chair -OK for use Momo for Savage IOs -transition off fentanyl and onto epidural alone [...] encounter. Signed: DARIN ZARAGOZA MD General Surgery [facility] Department of Surgery rexel, Cherie Ang MD - 05/15/2018 7:38 AM [...] Wagoner MD General Surgery, R4 Pager # [phone] hEvelyn olivares N P - 05/15/2018 7:24 AM PDT INPATIENT ADULT PAIN SERVICE NEURAXIAL BLOCK PROGRESS NOTE 05/15/2018 Author: Evelyn Mancia NP Epidural day # 1. POD# 1. Status post: Three field esophagectomy for distal esophageal adenocarcinoma Previously Obtained: Past Medical History: Diagnosis Date Cervical spinal stenosis Coronary artery disease 2007 diagnosed on angiogram when experienced chest pain - treated with medications, pain attrib uted to esophageal spasm, never had TN or stent Diverticulosis GERD without esophagitis Hernia, [...] IV 125 mL/hr intravenous CONTINUOUS 125 mL/hr (05/15/18 07) propofol (DIPRIVAN) injection 0.5-50 mcg/kg/min intravenous CONTINUOUS 40 mcg/kg/min ( 05/15/18 0700) sodium acetate-chloride (50:50) 3% IV infusion (hypertonic) [...] recommendations with primary care team provider Tamera HEMLS. Evelyn Mancia NP Adult Pain Service Pager [phone] Team Pager [phone] documented in this e ncounter Plan of [...] | | | LABORATORY | | | NIGERIEN | | | SERVICES, | | | [...] the MDRD equation recommended by the | [facility] | | National Kidney Disease Education Program. Estimated GFR | LABORATORY | | Interpretive Information: <60 mL/min/1.73 sq m | TIMO, CORE | | Chronic Kidney Disease <15 [...] + + + + + | [facility] | [address] | [place] [address] | | | TIMO, JUSTIN | KATHERINE [...] | + + + + + | [facility] | [address] | [place] [address] | | | JUSTIN GREENWOOD | [address] | | | + + + + + X-RAY PORTABLE CHEST 1 VIEW (05/22/2018 4:48 AM PDT) + + | Specimen | + + | | + + + + + | Narrative | Performed At | + + + | EXAM: UT CHEST 1 VIEW HISTORY: s/p 3 field esophagectomy 05/14 | [facility] | | COMPARISON: Yesterday FINDINGS: Right chest [...] Interface - 05/22/2018 9:22 AM PDT EXAM: UT CHEST 1 | | VIEW HISTORY: s/p [...] | | morning or sooner if needed. CHERY CABELLO PA-C [facility] | | | [address] [facility] Mailcode: [id number] [place] [address] | | | [phone] | | + + + X-RAY ESOPHAGRAM (05/21/2018 8:48 AM PDT) + + | Specimen | + + | | + + + + + | Narrative | Performed At | + + + | EXAM: Esophagram with dockworker radiograph HISTORY: Assess for | [facility] | [...] AM PDT EXAM: Esophagram | | with dockworker radiograph HISTORY: Assess for anastomotic leak COMPARISON: [...] | | | LABORATORY | | | NIGERIEN | | | SERVICES, | | | [...] | + + + + + | [facility] | [address] | [place] [address] | | | SERVICES, CORE | KATHERINE [...] + + + + + | [facility] | [address] | [place] [address] | | | SERVICES, CORE | [address] | | | + + + + + X-RAY PORTABLE CHEST 1 VIEW (05/21/2018 4:55 AM PDT) + + | Specimen | + + | | + + + + + | Narrative | Performed At | + + + | EXAM: UT CHEST 1 VIEW HISTORY: s/p 3 field [...] Interface - 05/21/2018 8:49 AM PDT EXAM: UT CHEST 1 | | VIEW HISTORY: s/p [...] At | + + + | EXAM: UT CHEST 1 VIEW HISTORY: s/p 3 field [...] Interface - 05/20/2018 9:20 AM PDT EXAM: UT CHEST 1 | | VIEW HISTORY: s/p [...] | | | LABORATORY | | | NIGERIEN | | | SERVICES, | | | [...] + + + + + | [facility] | [address] | [place] [address] | | | SERVICES, CORE | P[address] [...] + + + + + | [facility] | [address] | [place] [address] | | | SERVICES, CORE | KATHERINE [...] (H) | 70 - 99 mg/dL | [facility] - | | | GLUCOSE, | [...] + + + | [facility] | [address] | [place], [place] | | | MARISELA MATT OF CARE | [address] | [address] | | | TESTS | | | [...] At | + + + | EXAM: UT CHEST 1 VIEW HISTORY: s/p 3 field [...] Interface - 05/19/2018 11:10 AM PDT EXAM: UT CHEST 1 | | VIEW HISTORY: s/p [...] + + + | [facility] | [address] | [place], [place] | | | VERNELL POINT OF CARE | [facility] | [address] | | | TESTS | | | [...] | | | LABORATORY | | | NIGERIEN | | | SERVICES, | | | [...] [facility] | [address] | [place] [address] | | | SERVICES, CORE | PARK [...] LABORATORY | | | | | | TIMO, | | | | | | CORE [...] | + + + + + | [facility] | [address] | [place] [address] | | | JUSTIN GREENWOOD | KATHERINE [...] [facility] | [address] | [place], [place] | | | VERNELL POINT OF CARE | [address] | [address] | | | TESTS | | | [...] [facility] | [address] | [place], [place] | | | MARISELA MATT OF CARE | [address] | [address] | | | TESTS | | | [...] (H) | 70 - 99 mg/dL | [place] - | | | GLUCOSE, | | [...] [facility] | [address] | [place], [place] | | | MARISELA MATT OF [facility] | [address] | [address] | | | TESTS | | | | + + + + + X-RAY PORTABLE CHEST 1 VIEW (05/18/2018 5:39 AM PDT) + + | Specimen | + + | | + + + + + | Narrative | Performed At | + + + | EXAM: UT CHEST 1 VIEW HISTORY: s/p 3 field [...] Preliminary: Kaveh Gaspar MD Dictation initiated: Kaveh Ramirez | | | MD Hubert 05/18/2018 9:36 AM | | + + + + + | Procedure Note | + + | Service Account, Radiant Res In Interface - 05/18/2018 9:40 AM PDT EXAM: UT CHEST 1 | | VIEW HISTORY: s/p [...] [facility] | [address] | [place] [address] | | | SERVICES, CORE | PARK [...] | | | LABORATORY | | | NIGERIEN | | | SERVICES, | | | [...] the MDRD equation recommended by the | [facility] | | National Kidney Disease Education [...] + + + + + | [facility] | [address] | [place] [address] | | | TIMO, JUSTIN | PARK [...] [facility] | [address] | [place] [address] | | | JUSTIN GREENWOOD | KATHERINE [...] At | + + + | EXAM: UT CHEST 1 VIEW HISTORY: Esophageal adenocarcinoma status [...] Interface - 05/17/2018 2:18 PM PDT EXAM: UT CHEST 1 | | VIEW HISTORY: Esophageal [...] |Preliminary: Bia Alexandre MD | |Dictation initiated: iBa Alexandre MD 05/17/2018 8:12 AM | + [...] | + + + + + | [facility] | [address] [facility] | [place] [address] | | | SERVICES, CORE | PARK [...] | | | LABORATORY | | | NIGERIEN | | | SERVICES, | | | [...] the MDRD equation recommended by the | [facility] | | National Kidney Disease Education Program. [...] + + + + + | [facility] | [address] | [place] [address] | | | SERVICES, CORE | PARK [...] [facility] | [address] | [place] [address] | | | JUSTIN GREENWOOD | KATHERINE [...] [facility] | [address] | [place] [address] | | | SERVICES, CORE | PARK [...] | | | LABORATORY | | | NIGERIEN | | | SERVICES, | | | [...] + + + + + | [facility] | [address] | [place] [address] | | | SERVICES, [facility] | [address] | | | + + + + + PROCEDURE NOTE (05/16/2018 1:51 PM PDT)X-RAY PORTABLE CHEST 1 VIEW (05/16/2018 6:21 AM PD T) + + | Specimen | + + | | + + + + + | Narrative | Performed At | + + + | EXAM: UT CHEST 1 VIEW HISTORY: Esophageal adenocarcinoma status [...] Interface - 05/16/2018 11:25 AM PDT EXAM: UT CHEST 1 | | VIEW HISTORY: Esophageal [...] MCHC, PLT, IG% and IG# effective | [facility] | | 04/04/2018 | LABORATORY | | | JUSTIN [address]ENWOOD | + + + + + + + + | Performing | Address | City/State/Zipcode | Phone Number | | Organization | | | | + + + + + | [facility] | [address] | [place] [address] | | | JUSTIN GREENWOOD | KATHERINE [...] + + + + + | [facility] | [address] | [place] [address] | | | SERVICESJUSTIN | [address] [...] | | | LABORATORY | | | NIGERIEN | | | SERVICES, | | | [...] | + + + + + | [facility] | [address] | [place] [address] | | | SERVICES, CORE | [address] | | | + + + + + X-RAY PORTABLE CHEST 1 VIEW (05/15/2018 5:44 AM PDT) + + | Specimen | + + | | + + + + + | Narrative | Performed At | + + + | EXAM: UT CHEST 1 VIEW HISTORY: 67-year-old male with [...] Interface - 05/15/2018 10:11 AM PDT EXAM: UT CHEST 1 | | VIEW HISTORY: 67-year-old [...] MCHC, PLT, IG% and IG# effective | [facility] | | 04/04/2018 | LABORATORY | | | SERVICES, CORE | + + + + + + + + | Performing | Address | City/State/Zipcode | Phone Number | | Organization | | | | + + + + + | [facility] | [address] | [place] [address] | | | SERVICES, CORE | P[address] [...] + + + + + | [facility] | [address] | [place] [address] | | | JUSTIN GREENWOOD | K[address]INE [...] | | | LABORATORY | | | NIGERIEN | | | SERVICES, | | | [...] | + + + + + | [facility] | [address] | [place] [address] | | | SERVICES, CORE | KATHERINE [...] | Darin Zaragoza MD 05/15/2018 12:34 PM [facility] Department of | | | Surgery Operative Report Author: Darin Zaragoza MD Attending | | | Physician: Juvenal Vicente MD 05/14/2018 PATIENT INFORMATION | | | Patient Name: Jacob Iverson Date of | | | : 1950 Date of Surgery: 05/14/2018 Attending Surgeon: | | | Dr Juvenal Vicente Summer Counselor Surgeon: Darin Zaragoza MD R2 | | [...] ------- Darin Zaragoza MD General Surgery PGY2 [id number] | | | | | + + + X-RAY PORTABLE CHEST 1 VIEW (05/14/2018 5:54 PM PDT) + + | Specimen | + + | | + + + + + | Narrative | Performed At | + + + | EXAM: UT CHEST 1 VIEW HISTORY: 67-year-old male with [...] Interface - 05/15/2018 10:10 AM PDT EXAM: UT CHEST 1 | | VIEW HISTORY: 67-year-old [...] + | [facility] | [address] | [place] [address] | | | TIMO, JUSTIN | KATHERINE [...] [facility] | [address] | [place] [address] | | | SERVICES, CORE | PARK [...] + + + + + | [facility] | [address] | [place] [address] | | | SERVICES, CORE | KATHERINE [...] (H) | 70 - 99 mg/dL | [facility] - | | | GLUCOSE, | [...] [facility] | [address] | [place], [place] | | | MARISELA MATT OF CARE | [address] | [address] | | | TESTS | | | [...] | + + + + + | [facility] | [address] | [place] [address] | | | SERVICES, CORE | KATHERINE [...] | | | LABORATORY | | | NIGERIEN | | | SERVICES, | | | [...] + + + + + | [facility] | [address] | [place] [address] | | | [facility] | [address] | | | + + + + + PROCEDURE NOTE (05/14/2018 5:01 PM PDT) + + + | Narrative | Performed At | + + + | Chula Pal MD 05/15/2018 4:59 PM [facility] Department | | | of Surgery Operative Note Author: Anibal Craven MD Attending: | | | Chula Pal MD ID: Jacob Melissa Iverson Date of the | | | Procedure: 05/14/2018 Preoperative Diagnosis: Distal esophageal | | | adenocarcinoma Postoperative Diagnosis: same Procedure: 1. | | | Laparoscopic 3 field esophagectomy (abdominal portion) 2. | | | Laparoscopic enterolysis x 60 minutes 3. Laparoscopic pyloromyotomy | | | Surgeon: Juvenal Vicente MD Co-Surgeon: Chula Pal MD | | | Summer Counselor(s): Anibal Craven MD Indication: A 67 y.o. [...] secured this in place using and Iron Grinder Machine Setter | | | retractor. The Wingman retractor [...] midportion of the C-loop and did a Jimmy maneuver beginning across | | | the [...] and the RSI. - Anibal Craven MD [facility] Department of Surgery | | | Pager: [phone] CO SURGEON NOTE: Attending Surgeon: Dr. Sanford | | | Jules Co-Surgeons: Dr. Chula Pal (abdomen); Dr. Wisdom | | | (Thoracic) Summer Counselor(s): Anibal | | | MD Merissa; Charles [...] place using | | | and Iron Grinder Machine Setter retractor. The Wingman retractor was deployed to [...] | | | C-loop and did a Jimmy maneuver beginning across the C-loop moving | [...] Co-Surgeon: Chula Pal MD | | | Summer Counselor(s): Anibal Craven MD Prior to the beginning [...] Plan: direct to ICU Anibal Craven MD [facility] Department of | | | Surgery Pager: [phone] | | + + + ABG-FULL ABL, POC (05/14/2018 4:35 PM PDT) + + + + + + | Component | Value | Ref Range | Performed | Pathologist | | | | | At | Signature | + + + + + + | PH | 7.44 | 7.37 - 7.44 | [facility] - | | | ARTERIAL, | | | [facility] | | | POC | | | MARISELA MATT | | | | | | OF CARE | | | | | | TESTS | | + + + + + + | PO2 | 208 (H) | 72 - 104 mmHg | [facility] - | | | ARTERIAL, | | [...] [facility] | [address] | [place], [place] | | | MARISELA MATT OF [place] | [address] | [address] | | | TESTS | | | [...] [facility] | [address] | [place], [place] | | | MARISELA MATT OF CARE | [address] | [address] | | | TESTS | | | | + + + + + PROCEDURE NOTE (05/14/2018 2:05 PM PDT) + + + | Narrative | Performed At | + + + | Dalton Wisdom MD 05/14/2018 2:11 PM Operative note | | | Date of surgery: 05/14/18 Attending Surgeon: Dalton Wisdom M.D. | | | Co-Surgeon: Juvenal Vicente M.D. Summer Counselor(s): | | | MD Chery Griffith, [facility] Preoperative | | | Diagnosis(es): Esophageal adenocarcinoma [...] None apparent. Drains: | | | Bilateral 28-Guamanian chest tubes. Findings: Level 7,8L, | | [...] the Harmonic | | | scalpel. A Denys drain was placed around the esophagus for [...] operative field for hemostasis. We placed a 28-Guamanian | | | chest tube through the [...] | | procedure. Dalton Wisdom M.D. FACS [employer] | | | of Surgery [facility] Division of | | | Cardiothoracic Surgery Section of Thoracic Surgery [address] [facility] | | | [address] , [address] [place] [address] Telephone: | | | [phone] | | + + + ABG-FULL ABL, [...] + + + | [facility] | [address] | [place], [place] | | | MARISELA MATT OF [place] | [address] | [address] | | | TESTS | | | [...] 9R and 8L LNs Drains: bilateral 28 south korean chest tubes | | | Disposition: remains [...] + + + + | [facility] | [address] | [place], [place] | | | VERNELL GRANT OF [facility] | [address] | [address] | | | TESTS | | | [...] protocol | | | | | | ([employer]) that | | | | | [...] | | | | | | from [employer] according | | | | | | to production or plant engineer's | | | | | | instructions with | | | | | | appropriate controls. | | | | | | Inadequate specimens are | | | | | | not reported. [facility] | | | | | | participates [...] | | | | | | M, Shane O, Maddison D, | | | | | | Elif R, ray Blackwood | | | | | | M, Maryjo W, Domi A, | | | | | | Mikki JSami T | | | | | | (2007) Assessment of a | | | | | | HER2 scoring system for | | | | | | gastric cancer: results | | | | | | from a validation study. | | | | | | Histopathology 52(7): | | | | | | [id number]. Ray Barker | | | | | | Jamie Rockwell | | | | | | Peggy et al. Trastuzumab in | | | [...] | | | | | | trial. Lanc. | | | | | | 2009;686(0702):[id number].A | | | | | | nalyte [...] | | | | | determined by [facility] | | | | | [...] Arredondo, | | | | | | MKendrick/Pathologist | | | | + + + + + + | Clinical | Per requisition: | | [facility] | | | History | esophageal cancer (not | | DEPARTMENT | | | | reviewed at [facility]). Per | | OF | | [...] | John W | | | malignancy (0/1)B. 10R | | PATHOLOGY | MD Belle,PhD [...] Pathology | | | | | | FellowPhiorlando Odonnell, | | | | | | [...] | | | | | | number [id number].A. | | | | | | Chest, [...] | | | | | | oropeza, glistening with 2 | | | | [...] research | | | | | | studies.Cue Worker | | | | | | sections as follows:G1, | | | | | | proximal esophageal | | | | | | margin en faceG2 | | | | | | | | | | | | G3, community health representative | | | | | | [...] tissue)G14, | | | | | | [id number] | | | | | | | | | | | | G16, nodular gastric | | | | | | mucosa directly distal | | | | | | to GE bigyubesE82, | | | | | | nodular gastric | | | | | | udchgoA61, 2 possible | | | | | | nodes each bisected and | | | | | | differentially inked | | | | | | (esophagus)G19, 4 | | | | | | possible nodes intact | | | | | | (esophagus)G20, one | | | | | | possible node bisected | | | | | | (greater [id number], 5 | | | | | | [...] Diallo, | | | | | | /Pathologist [...] Diallo, | | | | | | /Pathologist | | | | + + + [...] | | | | | determined by [facility] | | | | | [...] + + + + + | [facility] | [address] | [place] [address] | | | PATHOLOGY | [address] | | | + + + + + KATHARINE-SHARON BASILIO (05/14/2018 8:12 AM PDT) + + + [...] | | POC | | | MAR[facility]A [facility]AT | | | | | | OF [...] + + + + | [facility] | [address] | [place], [place] | | | VERNELL POINT OF CARE | [address] | [address] | | | TESTS | | | [...] (H) | 70 - 99 mg/dL | [facility] - | | | GLUCOSE, | | [...] [facility] | [address] | [place], [place] | | | MARISELA MATT OF [facility] | [address] | [address] | | | TESTS | | | [...] + | Diagnosis | + + | Primary adenocarcinoma of distal third of esophagus (HCC) - Primary | + + | Esophageal cancer, stage IIIA (HCC) | + + | Tumor in Blood Study Participant #[id number] | + + | Encounter for radiotherapy Radiotherapy | + + | Malignant neoplasm of lower third of esophagus (HCC) Malignant neoplasm of lower | | third of esophagus | + + | Acute post-operative pain | + + | Jejunostomy tube present (HCC) Status of other artificial opening of gastrointestinal | | tract | + + documented in this encounter Administered Medications + +--------+ [...] PDT | | | | | on Sun05/20/18 at 1400, Until | | | | [...] +---+---+ +---+---+ | | | +---+---+ + +---------+ +--------+---+---+ | amiodarone (CORDARONE) IV | New Bag | 05/15/20 | 150 mg | | | | (loading dose) 150 mg, | | 18 5:32 | | | | | intravenous, ONCE, 1 dose, Wed | | AM PDT | | | | | 05/15/18 at 0600 | | | | | | + +---------+ +--------+---+---+ +---+---+ | | | +---+---+ + + + +--------+--------+---+ | amiodarone (CORDARONE) 900 mg | Rate/Dos | 05/16/20 | 0.62 | 20.67 | | | in dextrose 5 % 500 mL (1.8 | e Verify | 18 3:00 | mg/min | mL/hr | | | mg/mL) IV infusion 0.62 mg/min | | AM PDT | | | | | (20.6667 mL/hr, rounded to 20.67 | | | | | | | mL/hr), intravenous, CONTINUOUS, | | | | | | | Starting [facility] 05/15/18 at 0600, | | | | | | | Until [facility] 05/16/18 at 0559 | | | | | | + + + +--------+--------+---+ + + +--------+--------+---+ | Rate/Dose Verify | 05/16/20 | 0.62 | 20.67 | | | | 18 2:00 | mg/min | mL/hr | | | | AM PDT | | | | + + +--------+--------+---+ | Rate/Dose Verify | 05/16/20 | 0.62 | 20.67 | | | | 18 1:00 | mg/min | mL/hr | | | | AM PDT | | | | + + +--------+--------+---+ +---+---+ | | | +---+---+ + +-------+ +--------+---+---+ | amiodarone (CORDARONE) tablet | Given | 05/20/20 | 400 mg | | | | 400 mg 400 mg, feeding tube, | | 18 10:39 | | | | | THREE TIMES DAILY, 15 doses, | | PM PDT | | | | | First dose on Matilda 05/16/18 at | | | | | | | 0900, Last dose on Sun05/20/18 at | | | | | | | 2200 | | | | | | + +-------+ +--------+---+---+ +-------+ +--------+---+---+ | Given | 05/20/20 | 400 mg | | | | | 18 4:36 | | | | | | PM PDT | | | | +-------+ +--------+---+---+ | Given | 05/20/20 | 400 mg | | | | | 18 8:33 | | | | | | AM PDT | | | | +-------+ +--------+---+---+ [...] | | +---+---+ + +-------+ +-------+---+---+ | bisacodyl (DULCOLAX) | Given | 05/18/20 | 10 mg | | | | suppository 10 mg 10 mg, rectal, | | 18 9:02 | | | | | DAILY, First dose on Sun05/17/18 | | AM PDT | | | | | at 0900, Until Discontinued | | | | | | + +-------+ +-------+---+---+ +-------+ +-------+---+---+ | Given | 05/17/20 | 10 mg | | | | | 18 8:12 | | | | | | AM [...] | | | + +---+ + +-------+ +-------+---+---+ | bisacodyl (DULCOLAX) | Given | 05/19/20 | 10 mg | | | | suppository 10 mg 10 mg, rectal, | | 18 2:31 | | | | | ONCE, 1 dose, [place] 05/19/18 at | | PM PDT | | | | | 1100 | | | | | | + +-------+ +-------+---+---+ +---+---+ | | | +---+---+ + + + +---+ +---+ | bupivacaine 0.05 | Rate/Dos | 05/16/20 | | 11 mL/hr | | | %-HYDROmorphone 20 mcg/mL | e Change | 18 10:07 | | | | | epidural infusion epidural, | | AM PDT | | | | | CONTINUOUS, Starting 05/15/18 | | | | | | | at 1345, Until [facility] 05/16/18 at | | | | | | | 1010 | | | | | | + + + +---+ +---+ + + +---+ +---+ | Rate/Dose Verify | 05/16/20 | | 14 mL/hr | | | | 18 8:00 | | | | | | AM PDT | | | | + + +---+ +---+ | Rate/Dose Verify | 05/16/20 | | 14 mL/hr | | | | 18 7:00 | | | | | | AM PDT | | | | + + +---+ +---+ +---+---+ | | | +---+---+ + +---------+ +---+---------+---+ | bupivacaine 0.1 %, | New Bag | 05/20/20 | | 8 mL/hr | | | HYDROmorphone 20 mcg/mL in NaCl | | 18 5:21 | | | | | 0.9 % epidural infusion | | AM PDT | | | | | epidural, CONTINUOUS, Starting | | | | | | | Matilda 05/16/18 at 1045, Until Mon | | | | | | | 05/20/18 at 1051 | | | | | | + +---------+ +---+---------+---+ + + +---+---------+---+ | Rate/Dose Verify | 20 | | 8 mL/hr | | | | 18 7:20 | | | | | | PM PDT | | | | + + +---+---------+---+ | Rate/Dose Verify | 05/19/20 | | 8 mL/hr | | | | 18 4:24 | | | | | | AM PDT | | | | + + +---+---------+---+ +---+---+ | | | +---+---+ + +-------+ +-------+---+---+ | chlorhexidine (PERIDEX) | Given | 05/15/20 | 15 mL | | | | mouthwash 15 mL 15 mL, oral, | | 18 10:10 | | | | | EVERY 6 HOURS, First dose on e | | AM PDT | | | | | 05/14/18 at 2200, Until | | | | | | | Discontinued | | | | | | + +-------+ +-------+---+---+ +-------+ +-------+---+---+ | Given | 20 | 15 mL | | | | | 18 3:52 | | | | | | AM PDT | | | | +-------+ +-------+---+---+ | Given | 05/14/20 | 15 mL | | | | | 18 10:07 | | | | | | PM PDT | | | | +-------+ +-------+---+---+ +---+---+ | | | +---+---+ + + + + +--------+---+ | dexmedetomidine (PRECEDEX) 400 | Rate/Dos | 05/15/20 | 0.6 | 11.03 | | | mcg in NaCl 0.9 % 100 mL (4 | e Verify | 18 10:00 | mcg/kg/h | mL/hr | | | mcg/mL) IV infusion 0.2-0.7 | | AM PDT | r | | | | mcg/kg/hr | | | | | | | 73.5 kg (3.675-12.8625 mL/hr, | | | | | | | rounded to 3.68-12.86 mL/hr), | | | | | | | intravenous, CONTINUOUS, Starting | | | | | | | 05/15/18 at 0715, Until Wed | | | | | | | 05/15/18 at 1125 | | | | | | + + + + +--------+---+ + + + +--------+---+ | Rate/Dose Change | 05/15/20 | 0.6 | 11.03 | | | | 18 9:00 | mcg/kg/h | mL/hr | | | | AM PDT | r | | | + + + +--------+---+ | Rate/Dose Change | 05/15/20 | 0.4 | 7.35 | | | | 18 8:45 | mcg/kg/h | mL/hr | | | | AM PDT | r | | | + + + +--------+---+ +---+---+ | | | +---+---+ + +-------+ [...] +-------+---+---------+ +---+---+ | | | +---+---+ + + + +--------+-------+---+ | fentaNYL (SUBLIMAZE) 2500 | Rate/Dos | 05/15/20 | 75 | 7.5 | | | mcg/250 mL (10 mcg/mL) IV | e Verify | 18 9:00 | mcg/hr | mL/hr | | | infusion (RTU) 12.5-200 mcg/hr | | AM PDT | | | | | (1.25-20 mL/hr), intravenous, | | | | | | | CONTINUOUS, Starting Tu05/14/18 | | | | | | | at 1815, Until Sun05/15/18 at | | | | | | | 1125 | | | | | | + + + +--------+-------+---+ + + +--------+-------+---+ | Rate/Dose Verify | 05/15/20 | 75 | 7.5 | | | | 18 8:00 | mcg/hr | mL/hr | | | | AM PDT | | | | + + +--------+-------+---+ | Rate/Dose Verify | 05/15/20 | 75 | 7.5 | | | | 18 7:31 | mcg/hr | mL/hr | | | | AM PDT | | | | + + +--------+-------+---+ +---+---+ | | | +---+---+ + + + +---------+---+---+ | fentaNYL (SUBLIMAZE) bolus from | Bolus | 05/15/20 | 100 mcg | | | | continuous infusion 50-100 mcg | from | 18 4:00 | | | | | intravenous, EVERY 30 MINUTES | Same Bag | AM PDT | | | | | NEEDED, Starting 05/14/18 at | | | | | | | 1733, Until 05/15/18 at 1125, | | | | | | | CPOT not at goal | | | | | | + + + +---------+---+---+ + + +---------+---+---+ | Bolus from Same Bag | 05/15/20 | 100 mcg | | | | | 18 2:00 | | | | | | AM PDT | | | | + + +---------+---+---+ | Bolus from Same Bag | 05/15/20 | 100 mcg | | | | | 18 12:00 | | | | | | AM PDT | | | | + + +---------+---+---+ +---+---+ | | | +---+---+ + +-------+ +-------+---+---+ | furosemide (LASIX) injection 10 | Given | 05/16/20 | 10 mg | | | | mg 10 mg, intravenous, ONCE, 1 | | 18 8:01 | | | | | dose, [place] 05/16/18 at 0730 | | AM PDT | | | | + +-------+ +-------+---+---+ +---+---+ | | | +---+---+ + +-------+ +-------+---+---+ | furosemide (LASIX) injection 10 | Given | 05/17/20 | 10 mg | | | | mg 10 mg, intravenous, ONCE, | | 18 8:12 | | | | | dose, Lizzy 05/17/18 at 0830 | | AM PDT | | | | + +-------+ +-------+---+---+ +---+---+ | | | +---+---+ + +-------+ +-------+---+---+ | furosemide (LASIX) injection 20 | Given | 05/21/20 | 20 mg | | | | mg 20 mg, intravenous, ONCE, | | 18 9:06 | | | | | dose, Jasmin 05/21/18 at 0745 | | AM PDT | | | | + +-------+ +-------+---+---+ +---+---+ | | | +---+---+ [...] | | | +---+---+ + + + +-------+-------+---+ | lactated Ringers IV 100 mL/hr, | Rate/Dos | 05/16/20 | 100 | 100 | | | intravenous, CONTINUOUS, | e Verify | 18 6:00 | mL/hr | mL/hr | | | Starting [facility] 05/14/18 at 1745, | | AM PDT | | | | | Until [facility] 05/16/18 at 0903 | | | | | | + + + +-------+-------+---+ + + +-------+-------+---+ | Rate/Dose Verify | 05/16/20 | 100 | 100 | | | | 18 5:00 | mL/hr | mL/hr | | | | AM PDT | | | | + + +-------+-------+---+ | Rate/Dose Verify | 05/16/20 | 100 | 100 | | | | 18 4:00 | mL/hr | mL/hr | | | | AM PDT | | | | + + +-------+-------+---+ +---+---+ | | | +---+---+ + + [...] +---+---+ + +-------+ +--------+---+---+ | LORazepam (ATIVAN) tablet 0.5 | Given | 05/17/20 | 0.5 mg | | | | mg 0.5 mg, feeding tube, ONCE, 1 | | 18 12:40 | | | | | dose, Lizzy 05/17/18 at 0115 | | AM PDT | | | | + +-------+ +--------+---+---+ +---+---+ | | | +---+---+ + +-------+ +--------+---+---+ | LORazepam (ATIVAN) tablet 0.5 | Given | 05/19/20 | 0.5 mg | | | | mg 0.5 mg, feeding tube, AT | | 18 9:31 | | | | | BEDTIME NEEDED, Starting Fri | | PM PDT | | | | | 05/17/18 at 1319, Until Mon | | | | | | | 05/20/18 at 1558, anxiety | | | | | | + +-------+ +--------+---+---+ +-------+ +--------+---+---+ | Given | 05/18/20 | 0.5 mg | | | | | 18 9:16 | | | | | | PM PDT | | | | +-------+ +--------+---+---+ | Given | 05/17/20 | 0.5 mg | | | | | 18 9:08 | | | | | | PM [...] | | | | | modification) on [facility] 05/16/18 at | | | | | [...] | | +---+---+ + +-------+ +--------+---+---+ | nalbuphine (NUBAIN) injection | Given | 05/16/20 | 2.5 mg | | | | 2.5 mg 2.5 mg, intravenous, | | 18 5:52 | | | | | EVERY 15 MINUTES NEEDED, | | PM PDT | | | | | Starting Sun05/14/18 at 0809, | | | | | | | Until 05/20/18 at 1134, | | | | | | | itching, persistent | | | | | | | nausea/vomiting 30 min following | | | | | | | ondansetron administration | | | | | | + +-------+ +--------+---+---+ +-------+ +--------+---+---+ | Given | 05/16/20 | 2.5 mg | | | | | 18 10:36 | | | | | | AM PDT | | | | +-------+ +--------+---+---+ [...] | | +-------+ +-------+---+---+ | Given | 06/25/20 | 40 mg | | | | | 18 5:21 | | | | | | AM PDT | | | | +-------+ +-------+---+---+ +---+---+ | | | +---+---+ + +-------+ +------+---+---+ | ondansetron (ZOFRAN) injection | Given | 05/19/20 | 4 mg | | | | 4 mg 4 mg, intravenous, EVERY 12 | | 18 3:33 | | | | | HOURS NEEDED, Starting Tue | | PM PDT | | | | | 18 at 0809, Until Mon | | | | | | | 18 at 1134, n/v, if unable | | | | | | | to take oral form of medication | | | | | | + +-------+ +------+---+---+ + +---+ | | | + +---+ | ondansetron (ZOFRAN) tablet 4 | | | mg 4 mg, feeding tube, EVERY 8 | | | HOURS NEEDED, Starting Mon | | | 05/20/18 at 1504, Until Wed | | | 18 at 2000, nausea/vomiting, | | | first line | | + +---+ | | | + +---+ + +-------+ +------+---+---+ | oxyCODONE (immediate release) | Given | 05/20/20 | 5 mg | | | | (ROXICODONE) liquid 5-10 mg 5-10 | | 18 1:04 | | | | | mg, feeding tube, EVERY 4 HOURS | | PM PDT | | | | | NEEDED, Starting Sun05/20/18 | | | | | | | at 1128, Until Sun05/20/18 at | | | | | | | 1554, severe pain | | | | | | + +-------+ +------+---+---+ +-------+ +------+---+---+ | Given | 05/20/20 | 5 mg | | | | | 18 11:53 | | | | | | AM PDT | | | | +-------+ +------+---+---+ +---+---+ | | | +---+---+ + +-------+ +------+---+---+ | oxyCODONE (immediate release) | Given | 05/22/20 | 5 mg | | | | (ROXICODONE) liquid 5-10 mg 5-10 | | 18 6:27 | | | | | mg, feeding tube, EVERY 3 HOURS | | AM PDT | | | | | NEEDED, Starting Sun05/20/18 | | | | | | | at 1600, Until Sun05/22/18 at | | | | | | | 2001, severe pain | | | | | [...] | | +---+---+ + +-------+ +-------+---+---+ | pantoprazole (PROTONIX) | Given | 05/16/20 | 40 mg | | | | injection 40 mg 40 mg, | | 18 8:00 | | | | | intravenous, DAILY, First dose on | | AM PDT | | | | | 05/14/18 at 1800, Until | | | | | | | Discontinued | | | | | | + +-------+ +-------+---+---+ +-------+ +-------+---+---+ | Given | 05/15/20 | 40 mg | | | | | 18 9:44 | | | | | | AM PDT | | | | +-------+ +-------+---+---+ | Given | 05/14/20 | 40 mg | | | | | 18 5:59 | | | | | | PM PDT | | | | +-------+ +-------+---+---+ +---+---+ | | | +---+---+ + +-------+ +--------+---+---+ | potassium chloride (KLOR-CON) | Given | 05/16/20 | 40 mEq | | | | packet 40 mEq 40 mEq, feeding | | 18 8:10 | | | | | tube, ONCE, 1 dose, [facility] 05/16/18 | | PM PDT | | | | | at 1915 | | | | | | + +-------+ +--------+---+---+ +---+---+ | | | +---+---+ + +-------+ +--------+---+---+ | potassium chloride (KLOR-CON) | Given | 05/19/20 | 40 mEq | | | | packet 40 mEq 40 mEq, feeding | | 18 8:51 | | | | | tube, TWICE DAILY, 2 doses, First | | PM PDT | | | | | dose on 05/19/18 at 0900, | | | | | | | Last dose on 05/19/18 at 2100 | | | | | | + +-------+ +--------+---+---+ +-------+ +--------+---+---+ | Given | 05/19/20 | 40 mEq | | | | | 18 7:52 | | | | | | AM PDT | | | | +-------+ +--------+---+---+ +---+---+ | | | +---+---+ + +-------+ +--------+---+---+ | potassium chloride (KLOR-CON) | Given | 05/21/20 | 40 mEq | | | | packet 40 mEq 40 mEq, oral, | | 18 8:37 | | | | | TWICE DAILY, 2 doses, First dose | | PM PDT | | | | | on Sun05/21/18 at 0900, Last dose | | | | | | | on Sun05/21/18 at 2100 | | | | | | + +-------+ +--------+---+---+ +-------+ +--------+---+---+ | Given | 05/21/20 | 40 mEq | | | | | 18 9:06 | | | | | | AM PDT | | | | +-------+ +--------+---+---+ +---+---+ | | | +---+---+ + +---------+ +---------+---+---+ | potassium phosphate IV 15 mmol | New Bag | 05/15/20 | 15 mmol | | | | 15 mmol, intravenous, ONCE, 1 | | 18 3:52 | | | | | dose, 05/15/18 at 0315 | | AM PDT | | | | + +---------+ +---------+---+---+ +---+---+ | | | +---+---+ + +-------+ + +---+---+ | potassium, sodium phosphates | Given | 05/17/20 | 1 packet | | | | (NEUTRA-PHOS, PHOS-NAK) | | 18 8:12 | | | | | 280-160-250 mg packet 1 packet 1 | | AM PDT | | | | | packet, oral, ONCE, 1 dose, Fri | | | | | | | 05/17/18 at 0715 | | | | | | + +-------+ + +---+---+ +---+---+ | | | +---+---+ + +-------+ + +---+---+ | potassium, sodium phosphates | Given | 05/19/20 | 1 packet | | | | (NEUTRA-PHOS, PHOS-NAK) | | 18 1:14 | | | | | 280-160-250 mg packet 1 packet 1 | | PM PDT | | | | | packet, feeding tube, ONCE, 1 | | | | | | | dose, 05/19/18 at 1200 | | | | | | + +-------+ + +---+---+ +---+---+ | | | +---+---+ + +-------+ +---------+---+---+ | potassium, sodium phosphates | Given | 05/18/20 | 2 | | | | (NEUTRA-PHOS, PHOS-NAK) | | 18 9:02 | packets | | | | 280-160-250 mg packet 2 packet 2 | | PM PDT | | | | | packet, oral, THREE TIMES DAILY, | | | | | | | 3 doses, First dose on Sat | | | | | | | 05/18/18 at 1030, Last dose on Sat | | | | | | | 05/18/18 at 2200 | | | | | | + +-------+ +---------+---+---+ +-------+ +---------+---+---+ | Given | 05/18/20 | 2 | | | | | 18 4:37 | packets | | | | | PM PDT | | | | +-------+ +---------+---+---+ | Given | 05/18/20 | 2 | | | | | 18 12:07 | packets | | | | | PM PDT | | | | +-------+ +---------+---+---+ +---+---+ | | | +---+---+ + +-------+ [...] +-------+---+---+ +---+---+ | | | +---+---+ + + + +-------+---+---+ | propofol (DIPRIVAN) bolus from | Bolus | 05/15/20 | 20 mg | | | | continuous infusion 10-20 mg | from | 18 9:00 | | | | | intravenous, EVERY 15 MINUTES | Same Bag | AM PDT | | | | | NEEDED, Starting Tu05/14/18 at | | | | | | | 1734, Until Sun05/15/18 at 1125, | | | | | | | RASS greater than or equal to +2 | | | | | | | OR BSAS greater than +3 OR breath | | | | | | | stacking greater than 5 per | | | | | | | minute | | | | | | + + + +-------+---+---+ + + +-------+---+---+ | Bolus from Same Bag | 05/15/20 | 10 mg | | | | | 18 7:50 | | | | | | AM PDT | | | | + + +-------+---+---+ | Bolus from Same Bag | 05/15/20 | 10 mg | | | | | 18 7:45 | | | | | | AM PDT | | | | + + +-------+---+---+ +---+---+ | | | +---+---+ + + + + +-------+---+ | propofol (DIPRIVAN) injection | Rate/Dos | 05/15/20 | 20 | 8.82 | | | 0.5-50 mcg/kg/min | e Change | 18 9:15 | mcg/kg/m | mL/hr | | | 73.5 kg (0.2205-22.05 mL/hr, | | AM PDT | in | | | | rounded to 0.22-22.05 mL/hr), | | | | | | | intravenous, CONTINUOUS, Starting | | | | | | | 05/14/18 at 1815, Until Wed | | | | | | | 05/15/18 at 1125 | | | | | | + + + + +-------+---+ + + + +--------+---+ | Rate/Dose Change | 05/15/20 | 30 | 13.23 | | | | 18 9:00 | mcg/kg/m | mL/hr | | | | AM PDT | in | | | + + + +--------+---+ | Rate/Dose Verify | 05/15/20 | 40 | 17.64 | | | | 18 8:00 | mcg/kg/m | mL/hr | | | | AM PDT | in | | | + + + +--------+---+ +---+---+ | | | +---+---+ + +-------+ +-------+---+---+ | propranolol (INDERAL) liquid 30 | Given | 05/22/20 | 30 mg | | | | mg 30 mg, oral, TWICE DAILY, | | 18 8:26 | | | | | First dose on Sun05/16/18 at | | AM PDT | | [...] +---+---+ + +-------+ +-------+---+---+ | propranolol (INDERAL) tablet 30 | Given | 05/15/20 | 30 mg | | | | mg 30 mg, feeding tube, TWICE | | 18 6:09 | | | | | DAILY, First dose (after last | | PM PDT | | | | | modification) on Sun05/15/18 at | | | | | | | 1745, Until Discontinued | | | | | | + +-------+ +-------+---+---+ +---+---+ | | | +---+---+ + +-------+ +---+---+---+ | saliva substitute (MOUTH KOTE) | Given | 05/16/20 | | | | | spray oral, NEEDED, Starting | | 18 7:12 | | | | | Matilda 05/16/18 at 1104, Until Wed | | PM PDT | | | | | 18 at 2000, dry mouth | | | [...] | | | +---+---+ + + + +---+---------+---+ | SUFentanil 2 mcg/mL in NaCl 0.9 | Rate/Dos | 05/15/20 | | 8 mL/hr | | | % epidural infusion epidural, | e Verify | 18 2:00 | | | | | CONTINUOUS, Starting Tu05/14/18 | | PM PDT | | | | | at 0845, Until Sun05/15/18 at | | | | | | | 1313 | | | | | | + + + +---+---------+---+ + + +---+---------+---+ | Rate/Dose Verify | 06/20/20 | | 8 mL/hr | | | | 18 1:00 | | | | | | PM PDT | | | | + + +---+---------+---+ | Rate/Dose Verify | 06/20/20 | | 8 mL/hr | | | | 18 12:00 | | | | | | PM PDT | | | | + + +---+---------+---+ +---+---+ | | | +---+---+ documented in this encounter
--- OUTSIDE RECORDS SUMMARY | ~2019-11-23 | XMS | Encounter Summary ---
Demographics + + + | Address | [address] | | | [place] [address] | + + + | Home Phone [...] Team Providers + +------+ + | Care Quality Assurance Qa Lab Analyst Name | Role | Phone | [...] | | | neoplasm of | ,PhD [address] | | | | | | lower third | [address] | | | | | | of esophagus | [place], | | | | | | (HCC) | [place] | | | | | | Procedures | [address] | | | | | | PET CT SKULL | Phone: | | | | | | BASE TO | [phone] | | | | | | [place] | Fax: | | | | | | | [phone] | | + +--------+ + + + + Reason for Visit Office Visit - E/M Services (Routine) + +--------+ + + + + | Status | Reason | Specialty | Diagnoses / | Referred By | Referred To | | | | | Procedures | Contact | Contact | + +--------+ + + + + | Authorized | | Hematology & | Diagnoses | Agusto, | Walt, | | | | Oncology | Malignant | Marie Ramirez MD | Krunal, | | | | | neoplasm of | [address] | ,PhD [address] | | | | | lower third | [address] | [address] | | | | | of esophagus | [address] | [place], [place] | | | | | Procedures | [place], [place] | [address] | | | | | [place] | [address] | Phone: | | | | | SERVICES | Phone: | [phone] | | | | | PROVIDED | [phone] | Fax: | | | | | PART OF [place] | Fax: | [phone] | | | | | INJ | [phone] | | | | | | NIVOLUMAB 1 | | | | | | | MG [place] EST | | | | | | | PATIENT | | | | | | | LEVEL V | | | + +--------+ + + + + Encounter Details +--------+---------+ + + + | Date | Type | Department | Care Team | Description | +--------+---------+ + + + | 08/13/ | Office | Hematology/Medical | Krunal Godoy, | Malignant neoplasm | | 2019 | Visit | [facility] [place] | ,PhD [address] | of lower third of | | | | for Health & Healing | Ave [place], [place] | esophagus (HCC) | | | | [address] | [address] | (Primary Dx); | | | | Mailcode: [place] | [phone] | Clinical trial exam; | | | | for Health and | | Nausea; Fatigue, | | | | Healing, Building [address] | | unspecified type; | | | | [place], [place] | | Encounter for | | | | [address] | | antineoplastic | | | | [phone] | | immunotherapy; | | | | | | Abdominal wall mass | | | | | | of right lower | | | | | | quadrant | +--------+---------+ + + + Social History [...] + + + | Blood Pressure | 113/78 | 08/13/2019 2:53 PM | | | | | PDT | | + + + + + | Pulse | 57 | 08/13/2019 2:53 PM | | | | | PDT | | + + + + + | Temperature | 36.8 C (98.2 F) | 08/13/2019 2:53 PM | | | | | PDT | | + + + + + | Respiratory Rate | 14 | 08/13/2019 2:53 PM | | | | | PDT | | + + + + + | Oxygen Saturation | 100% | 08/13/2019 2:53 PM | | | | | PDT | | + + + + + | Inhaled Oxygen | - | - | | | Concentration | | | | + + + + + | Weight | 67 kg (147 lb 9.6 | 08/13/2019 2:53 PM | wit hshoes | | | oz) | PDT | | + + + + + | Height | - | - | | + + + + + | Body Mass Index | 22.44 | 07/15/2019 1:44 PM | | | | | PDT [...] encounter Progress Notes Krunal Godoy MD,PhD - 08/13/2019 3:00 PM PDT ID: Jacob Sapp is a 69 year old man with esophageal adenocarcinoma Oncology [...] or no response, score 3) - 07/31/2018 [facility] Medical oncology evaluation- offered enrollment on [employer] [...] opacity in RUL likely c/w infectious etiology. - cycle of nivolmab/placebo was delayed due to grade 2 elevations in AST/ALT. Resolved with dose hold. Interval History: Mr. Sapp was last seen in clinic on 07/15/19 when he received cycle 16 niv o/placebo. He returns to clinic for consideration of cycle 17. As of the last 3 weeks, he butt s noted progressive fatigue requiring multiple naps throughout the day - sleeping ~16-18 sachin rs each day. He notes stable nausea, episodes of orthostatic hypotension, and intermittent p ruritus. He has not had recurrent diverticulitis flares. Denies diarrhea, hematochezia, feve rs, chills, CP, or SOB. Restaging studies performed. Review of Systems: Skin: pruritus; Remainder of complete 14 pt review of systems negative e xcept as above. PFSH: I reviewed and updated. Good social support system. Physical Examination: BP 113/78 (BP Location: Left upper arm, Patient Position: Sitting) | Pulse 57 | Temp 36.8 C (98.2 F) (Oral) | Resp 14 | Wt 67 kg (147 lb 9.6 oz) Comment: wit hshoes | SpO2 100 % | BMI 22.44 kg/m | BSA 1.79 m ECO HEENT: non-icteric, PERRLA/EOMI, oropharnyx clear NECK: supple LN: none appreciated LUNGS: clear to auscultation CV: normal ABD: subcutaneous mass RLQ. Normal bowel sounds. No hepatosplenomegaly. EXT: no CCE NEURO: intact SKIN: non-icteric PSYCH: appropriate Labs: Lab Results Component Value Date NA 141 08/13/2019 K 4.2 08/13/2019 CL 105 08/13/2019 BICARB 28 08/13/2019 BUN 10 08/13/2019 CR 0.87 08/13/2019 GLU 101 08/13/2019 CA 8.8 08/13/2019 AST 24 08/13/2019 ALT 33 08/13/2019 AP 74 08/13/2019 TBILI 0.6 08/13/2019 TP 6.9 08/13/2019 ALB 3.4 08/13/2019 Lab Results Component Value Date WBC 4.90 08/13/2019 HB 11.3 08/13/2019 HCT 33.5 08/13/2019 PLT 166 08/13/2019 MCV 100.9 08/13/2019 RDW 49.0 08/13/2019 I independently reviewed the patient's imaging today CT CHEST, ABDOMEN AND PELVIS W IV CONTRAST Order: [id number] Status: Final result Visible to patient: No (Not Released) Dx: Malignant neoplasm of lower third of ... Details Reading Physician Reading Date Result Priority Kaveh Rodriguez MD 08/13/2019 Narrative EXAM: CT of the chest, abdomen and pelvis WITH intravenous contrast. HISTORY: Malignant neoplasm of lower third of esophagus (HCC) COMPARISON: 05/20/19 TECHNIQUE: CT of the chest, abdomen and pelvis WITH intravenous contrast. Coronal and sag ittal reformats were generated and reviewed. FINDINGS: CHEST: Heart and great vessels are unremarkable aside from atherosclerosis. The gastric con duit and anastomosis appears normal. No lymphadenopathy. The left lower lobe subpleural nodule now measures 9 mm, previously 6 mm (image 112). Anoth er spiculated left lower lobe nodule measures 7 mm, previously 4 mm (image 134). A right upp er lobe subpleural nodule now measures 6 mm, previously 5 mm (image 85). Another suspicious left lower lobe pulmonary nodule is seen (image 166). All of these nodules are new from base line postsurgical imaging July 2018. No pleural effusion.. LIVER: Unremarkable. BILIARY: Gallbladder appears surgically absent. Mild biliary dilation is stable and likely from cholecystectomy. PANCREAS: Dilated pancreatic duct in the head is unchanged and likely chronic. SPLEEN: Unremarkable. ADRENALS: Thickening of the right adrenal gland with apparent 17 mm lesion is new from [place] te studies and slightly increased compared to recent studies were measured 13 mm. This is martínez spicious for adrenal metastasis. Left adrenal is unremarkable.. KIDNEYS/URETERS: Multiple small renal cysts. PELVIC ORGANS/BLADDER: Unremarkable. GI TRACT: Gastric conduit is unremarkable. No dilated loops of bowel. Moderate to large rec tosigmoid stool. Sigmoid diverticulosis. PERITONEUM: No free air or fluid. LYMPH NODES: No lymphadenopathy. VESSELS: Scattered atherosclerotic calcification, without aneurysm. BONES AND SOFT TISSUES: Right flank hernia containing fat is stable. In the right lower diana drant again seen is a soft tissue mass in the oblique muscles measuring 2.4 x 1.3 cm, previo usly 2.6 x 1.2 cm. No suspicious bone lesion. IMPRESSION: 1. Since 05/20/19, probable small lung metastases are slightly increased. 2. A right adrenal lesion suspicious for metastasis is mildly increased. 3. Right abdominal wall soft tissue mass appears stable. I have personally reviewed the images and, if necessary, edited the report. I agree with e report as now presented. Final signature: Kaveh Rodriguez MD 08/13/2019 11:28 AM Preliminary: Kaveh Rodriguez MD Dictation initiated: Kaveh Rodriguez MD 08/13/2019 11:16 AM Specimen Collected: 08/13/19 11:16 Last Resulted: 08/13/19 11:28 Plan/ Recommendations: 1. Cancer Staging Malignant neoplasm of lower third of esophagus (HCC) Staging form: Esophagus - Adenocarcinoma, AJCC 8th Edition - Clinical: No stage assigned - Unsigned - Pathologic: Stage IIIB (pT3, pN2, cM0) - Signed by Marie Liz MD on 07/31/2018 - Ongoing, stable post-infusion fatigue (D1-5), becoming more persistent in recent cycles, along with diminished appetite and cold intolerance - Completed 5 days of cipro and metronidazole for diverticulitis flare. Symptoms resolved. - Restaging CT s/p 16 cycles nivolumab/placebo demonstrates nodules initially thought to be likely infectious/inflammatory have grown in size and raise suspicions for metastatic disea se. - Will obtain PET scan for further evaluation of metabolically active disease - Will NOT proceed with cycle 17 nivolumab today - RTC with completed PET scan - I discussed the goals, objectives, risks, benefits, and toxicities of therapy and the pat ient wishes to proceed. - Will need close and frequent monitoring physical examinations and laboratory monitoring f or toxicities of ongoing immunotherapy 2. Low appetite, low grade nausea, intermittent, improved with olanzapine, sxs also c/w unc ontrolled gastritis despite 20mg omeprazole daily - continue 40mg omeprazole daily - continue olanzapine - continue following with dietitian 3. Hypothyroidism -TSH WNL -Continue synthroid as prescribed 4. Mood: Ongoing, stable - pt previously reported increase in depressed mood, no SI/HI - not discussed today (08/13/2019) 5. Fatigue - Progressive as of the last 3 weeks per patient - Will check cortisol levels today (08/13/19) I am Ana Abdul functioning as a scribe for Krunal Godoy MD,PhD at 2:57 PM on 08/13/2019 I have reviewed and verified the above scribed note of my visit with this patient as record ed by Ana Abdul. Research Note Study #: [id number] Patient Name: Jacob Sapp Patient Medical/Surgical History Date Cervical spinal stenosis 1997 Coronary artery disease - diagnosed on angiogram when experienced chest pain - treated with medications, pain attributed to esophageal spasm, never had AR or stent 2007 H/O Diverticulosis 1997 Hernia, hiatal, removed with esophageal surgery 05/2018 Hyperlipidemia 2007 LBBB (left bundle branch block) 09/2017 H/O sleep apnea (no longer using CPAP since weight loss and not snoring anymore) Appendectomy complicated by peritonitis 1961 Cholecystectomy 1976 Tonsillectomy 1956 Medication Name Start Date End Date Dose Route Frequency Indication DULoxetine 05/2018 30 mg PO, delayed release capsule (DR/EC) DAILY Depressive symptoms/an xiety HYDROcodone-acetaminophen 2007 5-325 mg PO tablet Take 1 tablet by mouth Q4HRs PRN Pain ( neck) LORazepam 2015 1 mg PO PRN Anxiety/sleep Lovastatin 2011 20 mg PO DAILY - in evening Hyperlipidemia Omeprazole (Prilosec) 2007 20 mg PO, delayed release capsule (DR/EC) DAILY - in morning G ERD prophylaxis Propranol 2003 60 mg PO Take 0.5 tablets BID HTN Tamsulosin (FLOMAX) 05/2018 0.4 mg capsule PO DAILY Urinary retention Fish oil 2008 1500 mg tab PO DAILY General health Trisha-C 2008 1 tab PO DAILY General health Marijuana salve 06/2018Nov 2018 Thin layer Topically PRN Pain Cesar velasquez [...] Fluconazole 02/07/2019 02/13/2019 UNK PO DAILY Thrush Ciprofloxacin 07/03/2019 07/08/2019 500mg PO BID diverticulitis Metronidazole 07/03/2019 07/08/2019 500mg PO TID diverticulitis Adverse Event Name Start Date End Date [...] baseline N/A - baseline N/A Urinary retention 05/2018March 2019 2 N/A - baseline N/A - baseline N/A - baseline N/A Pain, neck (intermittent) 2009 2 N/A - baseline N/A - baseline N/A - baseline N/A Depressive symptoms 05/2018 2 N/A - baseline N/A - baseline N/A - baseline N/A Insomnia 05/2018 1 N/A - baseline N/A - baseline N/A - baseline N/A Anxiety, intermittent 05/2018 2 N/A - baseline N/A - baseline N/A - baseline N/A Hypertension, intermittent 2002 1 N/A - baseline N/A - baseline N/A - baseline N/A Constipation, intermittent 05/2018Oct 2019 1 N/A - baseline N/A - baseline N/A - baseline N/A Gas pains 09/26/2018 1 2 = unrelated 1 = none 2 = no N Nausea, intermittent 10/09/2018 1 2 = unrelated 1 = none 2 = no N Abdominal pain (LLQ) 10/09/2018 1 2 = unrelated 1 = none 2 = no N Anorexia 10/09/2018 01/22/2019 1 2 = unrelated 1 = none 2 = no N Infections and Infestations - other (Diverticulitis) 10/09/2018 10/19/2018 - intermittent o ngoing, stop date 11/27/2018 2 2 = unrelated 1 = none 2 = no N Night sweats 12/10/2018 1 2 = unrelated 1 = none 2 = no N Thrush 02/07/2019 02/13/2019 2 2 = unrelated 1 = none 2 = no N Diverticulitis 07/03/2019 1 2 = unrelated 1 = none 2 = no N Last updated: 08/13/2019 documented in this encounter Plan of Treatment Not on filedocumented as of this encounter Results PET CT SKULL BASE [...] | | | + +---------+ + + CORTISOL, SERUM (08/13/2019 7:32 PM PDT) + [...] ug/dL | LABORATORY | | | SERVICES, CORE | + + + + + + + + | Performing | Address | City/State/Zipcode | Phone Number | | Organization | | | | + + + + + | [employer] | [address] | [place] [address] | | | SERVICES, CORE | PARK [...] Fatigue, unspecified type | + + | Encounter for antineoplastic immunotherapy | + + | Abdominal wall mass of right lower quadrant Abdominal or pelvic swelling, mass, or | | lump, right lower quadrant | + + documented in this encounter"
--- OUTSIDE RECORDS SUMMARY | ~2019-11-23 | XMS | Encounter Summary ---
Demographics + + + | Address | [address] | | | [place] [address] | + + + | Home Phone [...] Team Providers + +------+ + | Care Videotape Recording Engineer Name | Role | Phone | + +------+ + | Christos Olivarez MD | PCP | | + +------+ + Encounter Details +--------+------+ + + + | Date | Type | Department | Care Team | Description | +--------+------+ + + + | 08/21/ | Lab | Laboratory at [facility] | | Malignant neoplasm | | 2018 | | [address] | | of lower third of | | | | [place], [place] | | esophagus (HCC) | | | | [address] | | | | | | [phone] | | | +--------+------+ + + + Social History + +-------+ [...] | + +--------+ + + + | HEPATITIS B BY PCR | Routin | 08/21/2018 | Malignant neoplasm | Results for this | | | e | 11:00 AM | of lower third of | procedure are in the | | | | PDT | esophagus (HCC) | results section. | + +--------+ + + + | CBC AND AUTO DIFF | Routin | 08/21/2018 | Malignant neoplasm | Results for this | | | e | 11:00 AM | of lower third of | procedure are in the | | | | PDT | esophagus (HCC) | results section. | + +--------+ + + + | FREE T3, SERUM | Routin | 08/21/2018 | Malignant neoplasm | Results for this | | | e | 11:00 AM | of lower third of | procedure are in the | | | | PDT | esophagus (HCC) | results section. | + +--------+ + + + | CBC, WITH | Routin | 08/21/2018 | Malignant neoplasm | Results for this | | DIFFERENTIAL | e | 11:00 AM | of lower third of | procedure are in the | | | | PDT | esophagus (HCC) | results section. | + +--------+ + + + | COMPLETE METABOLIC | Routin | 08/21/2018 | Malignant neoplasm | Results for this | | SET | e | 11:00 AM | of lower third of | procedure are in the | | (NA,K,CL,CO2,BUN,CRE | | PDT | esophagus (HCC) | results section. | | AT,GLUC,CA,AST,ALT,B | | | | | | AISSATOU TOTAL,ALK | | | | | | PHOS,ALB,PROT TOTAL) | | | | | + +--------+ + + + | UA, DIPSTICK ONLY | Routin | 08/21/2018 | Malignant neoplasm | Results for this | | | e | 11:00 AM | of lower third of | procedure are in the | | | | PDT | esophagus (HCC) | results section. | + +--------+ + + + | URINE, MICROSCOPIC | Routin | 08/21/2018 | Malignant neoplasm | Results for this | | EXAM | e | 11:00 AM | of lower third of | procedure are in the | | | | PDT | esophagus (HCC) | results section. | + +--------+ + + + | FREE T4 | Routin | 08/21/2018 | Malignant neoplasm | Results for this | | | e | 11:00 AM | of lower third of | procedure are in the | | | | PDT | esophagus (HCC) | results section. | + +--------+ + + + | TSH | Routin | 08/21/2018 | Malignant neoplasm | Results for this | | | e | 11:00 AM | of lower third of | procedure are in the | | | | PDT | esophagus (HCC) | results section. | + +--------+ + + + | HEPATITIS C VIRUS | Routin | 08/21/2018 | Malignant neoplasm | Results for this | | W/CONFIRMATION | e | 11:00 AM | of lower third of | procedure are in the | | | | PDT | esophagus (HCC) | results section. | + +--------+ + + + | LIPASE, PLASMA | Routin | 08/21/2018 | Malignant neoplasm | Results for this | | | e | 11:00 AM | of lower third of | procedure are in the | | | | PDT | esophagus (HCC) | results section. | + +--------+ + + + | LDH TOTAL, PLASMA | Routin | 08/21/2018 | Malignant neoplasm | Results for this | | | e | 11:00 AM | of lower third of | procedure are in the | | | | PDT | esophagus (HCC) | results section. | + +--------+ + + + | AMYLASE, PLASMA | Routin | 08/21/2018 | Malignant neoplasm | Results for this | | | e | 11:00 AM | of lower third of | procedure are in the | | | | PDT | esophagus (HCC) | results section. | + +--------+ + + + documented in this encounter Results CBC AND AUTO DIFF (08/21/2018 11:00 AM PDT) + + + + + + | Component | Value | Ref Range | Performed | Pathologist | | | | | At | Signature | + + + + + + | WHITE CELL | 3.66 | 3.50 - 10.80 | [facility] | | | COUNT | | K/cu mm | LABORATORY | | | | | | SERVICES, | | | | | | [facility] | | | | | | [facility] | | + + + + + + | RED CELL | 3.42 (L) | 4.50 - 6.00 | [facility] | | | COUNT | | M/cu mm | LABORATORY | | | | | | SERVICES, | | | | | | [facility] + | | | | | | [facility]ALING | | + + + + + + | HEMOGLOBIN | 11.7 (L) | 13.5 - 17.5 | [facility] | | | | | g/dL | LABORATORY | | | | | | SERVICES, | | | | | | [facility] + | | | | | | [facility]ALING | | + + + + + + | HEMATOCRIT | 34.3 (L) | 41.0 - 53.0 % | [facility] | | | | | | LABORATORY | | | | | | SERVICES, | | | | | | [facility] + | | | | | | [facility]ALING | | + + + + + + | MCV | 100.3 (H) | 80.0 - 100.0 fL | [...] + + + | RDW SD | 48.7 (H) | 35.1 - 46.3 fL | [facility] | | | | | | LABORATORY | | | | | | SERVICES, | | | | | | [facility] + | | | | | | [facility]ALING | | + + + + + + | PLATELET | 183 | 150 - 400 K/cu | [facility] | | | COUNT | | mm | LABORATORY | | | | | | SERVICES, | | | | | | [facility] + | | | | | | [facility]ALING | | + + + + + + | MPV | 8.8 (L) | 9.7 - 12.3 fL | [facility] | | | | | | LABORATORY | | | | | | SERVICES, | | | | | | [facility] | | [facility] + | | | | | | HEALING | | + + + + + + | NEUTROPHIL | 60.0 | 50.0 - 70.0 % | [facility] | | | % | | | LABORATORY | | | | | | SERVICES, | | | | | | [facility] | [facility] + | | | | | | HEALING | | + + + + + + | LYMPHOCYTE | 24.6 | 18.0 - 42.0 % | [facility] | | | % | | | LABORATORY | | | | | | SERVICES, | | | | | | [facility] | | [facility] + | | | | | | HEALING | | + + + + + + | MONOCYTE % | 13.7 (H) | 3.5 - 9.0 % | [facility] | | | | | | LABORATORY | | | | | | SERVICES, | | | | | | [facility] | [facility] + | | | | | | HEALING | | + + + + + + | EOS % | 1.4 | 1.0 - 3.0 % | [facility] [...] + + + + | NEUTROPHIL | 2.20 | 1.80 - 7.70 | [facility] | [...] + + + | MONOCYTE # | 0.50 | 0.10 - 0.90 | [facility] | | | | | K/cu mm | LABORATORY | | | | | | SERVICES, | | | | | | [facility] | | [facility] + | | | | | | HEALING | | + + + + + + | EOS # | 0.05 | 0.00 - 0.50 | [facility] | [...] At | + + + | New pediatric reference ranges for Lymphocyte % in effect May 09, | [facility] | | 2018. | LABORATORY | | | SERVICES, | | | [facility] | [facility] + | | | HEALING | + + + + + + + + | Performing | Address | City/State/Zipcode | Phone Number | | Organization | | | | + + + + + | [facility] | [address] | [place] [address] | | | SERVICES, [facility] | | | | | HEALTH [...] | | | LABORATORY | | | [place] | | | SERVICES, | | | [...] | + + + + + | [facility] | [address] | [place] [address] | | | SERVICES, CORE | PARK [...] [facility] | [address] | [place] [address] | | | [address] [place] | [address] [...] [facility] | [address] | [place] [address] | | | SERVICES, CORE | PARK [...] | + + + + + | [facility] | [address] | [place] [address] | | | SERVICES, CORE | ASHLEY [...] + + + | [facility] | [address] | [place] [address] | | | DIAGNOSTIC | [address] [...] [facility] | [address] | [place] [address] | | | SERVICESJUSTIN | [address] | | | + [...] | + + + + + | [facility] | [address] | [place] [address] | | | SERVICES, CORE | PARK [...] | | | this test in the [facility] | | | | | | Laboratory Test | | | | | | Directory | | | | | | ([employer]).Performed | | | | | | by [employer],[address] | | | | | | [address], [facility],[place] | | | | | | [id number] | | | | | | [phone].[employer]. | | | | | | [facility], Chandrakant Gasca MD, | | | | [...] [facility] | [address] | [place], [place] | | | [facility] | | [address] | | + + + + + [...] | + + + + + | [employer] | [address] | [place] [address] | | | SERVICES, CORE | [address]SHLEY [...] | [facility] | | | GRAVITY | [place] performed by | | LABORATORY | | [...] | + + + + + | [facility] | [address] | [place] [address] | | | SERVICES, CORE | ASHLEY [...] | + + + + + | [facility] | [address] | [place] [address] | | | SERVICES, CORE | [address] | | | + + + + + documented in this encounter Visit Diagnoses + + | Diagnosis | + + | Malignant neoplasm of lower third of esophagus (HCC) Malignant neoplasm of lower | | third of esophagus | + + documented in this encounter"
--- OUTSIDE RECORDS SUMMARY | ~2019-11-23 | XMS | Encounter Summary ---
Demographics + + + | Address | [address] | | | [place] [address] | + + + | Home Phone | | + + + | Preferred Language | Unknown | + + + | Marital Status | | + + + | Mandaen Affiliation | CAT | + + + | Race | White | + + + | Ethnic Group | Not or | + + + Author + + + | Author | [facility] | + + + | Organization | [facility] | + + + | Address [...] Providers + +------+ + | Care Operations Supervisor Name | Role | Phone | + +------+ + | Christos Olivarez MD | PCP | | + +------+ + Reason for Visit + + + | Reason | Comments | + + + | Nurse Visit | | + + + Encounter Details +--------+---------+ + + + | Date | Type | Department | Care Team | Description | +--------+---------+ + + + | 08/01/ | Office | [facility] | | | | 2017 | Visit | Center at [facility] [address] | | | | | | [address] | | | | | | Mailcode: [place] | | | | | | for Health and | | | | | | [facility] [address] | | | | | | [place], [place] | | | | | | [address] | | | | | | [phone] | | | +--------+---------+ + + + [...] + + + | Blood Pressure | 129/94 | 2018 9:58 AM | | | | | PDT | | + + + + + | Pulse | 80 | 2018 9:58 AM | | | | | PDT | | + + + + + | Temperature | 36.6 C (97.9 F) | 2018 9:58 AM | | | | | PDT | | + + + + + | Respiratory Rate | 15 | 2018 9:58 AM | | | | | PDT | | + + + + + | Oxygen Saturation | - | - | | + + + + + | Inhaled Oxygen | - | - | | | Concentration | | | | + + + + + | Weight | 65.9 kg (145 lb 4.8 | 2018 9:58 AM | | | | oz) | PDT | | + + + + + | Height | 172.7 cm (5' 8") | 2018 9:58 AM | | | | | PDT | | + + + + + | Body Mass Index | 22.09 | 2018 9:58 AM | | | [...]
--- OUTSIDE RECORDS SUMMARY | ~2019-11-23 | XMS | Encounter Summary ---
Demographics + + + | Address | [address] | | | [place] [address] | + + + | Home Phone [...] Team Providers + +------+ + | Care Veneer Stacker Name | Role | Phone | + +------+ + | Christos Olivarez MD | PCP | | + +------+ + Encounter Details +--------+ + + + + | Date | Type | Department | Care Team | Description | +--------+ + + + + | 04/10/ | Pharmacy | Specialty Pharmacy | | | | 2017 | Visit | Services [address] | | | [address] | | | | | | [place] | | | | | | [address] | | | | | | [phone] | | | +--------+ + + + [...]
--- OUTSIDE RECORDS SUMMARY | ~2019-11-23 | XMS | Encounter Summary ---
Demographics + + + | Address | [address] | | | [place] [address] | + + + | Home Phone | | + + + | Preferred Language | Unknown | + + + | Marital Status | | + + + | Congregational Affiliation | CAT | + + + [...] Team Providers + +------+ + | Care Commercial Real Estate Underwriter Name | Role | Phone | + +------+ + | Christos Olivarez MD | PCP | | + +------+ + Reason for Visit + + + | Reason | Comments | + + + | Lab Draw | from PIV | + + + Encounter Details +--------+ + + + + | Date | Type | Department | Care Team | Description | +--------+ + + + + | 11/27/ | Clinical | Laboratory at [facility] | | Lab Draw (from PIV) | | 2019 | Support | [address] | | | | | Staff | [place], [place] | | | | | | [address] | | | | | | [phone] | | | +--------+ + + + [...] documented as of this encounter Progress Notes Evelyn Sahu RN - 11/27/2018 11:00 AM [id number] PIV in right AC in place from CT scan thi s morning. Positive blood return from PIV. CBC and CMP were drawn via PIV and multiple other s drawn via PIV and sent to lab, including research labs. PIV flushed, saline locked and rem ains intact for treatment after provider visit. Pt tolerated without incident. Pt discharge d to provider visit. documented in this en counter Plan of Treatment Not on filedocumented as of this encounter Procedures + +--------+ + + + | Procedure Name | Priori | Date/Time | Associated Diagnosis | Comments | | | ty | | | | + +--------+ + + + | CBC AND AUTO DIFF - | Routin | 11/27/2018 | Malignant neoplasm | Results for this | | [facility] | e | 9:28 AM | of lower third of | procedure are in the | | | | PST | esophagus (HCC) | results section. | + +--------+ + + + | TSH W/REFLEX TO FREE | Routin | 11/27/2018 | Malignant neoplasm | Results for this | | T4(IF ABNORMAL) | e | 9:28 AM | of lower third of | procedure are in the | | | | PST | esophagus (HCC) | results section. | + +--------+ + + + | COMPLETE METABOLIC | Routin | 11/27/2018 | Malignant neoplasm | Results for this | | PANEL - OLP | e | 9:28 AM | of lower third of | procedure are in the | | | | PST | esophagus (HCC) | results section. | + +--------+ + + + | CBC WITH AUTO DIFF - | Routin | 11/27/2018 | Malignant neoplasm | Results for this | | OLP | e | 9:28 AM | of lower third of | procedure are in the | | | | PST | esophagus (HCC) | results section. | + +--------+ + + + | [facility] - COMPLETE | Routin | 11/27/2018 | Malignant neoplasm | Results for this | | METABOLIC SET | e | 9:28 AM | of lower third of | procedure are in the | | | | PST | esophagus (HCC) | results section. | + +--------+ + + + | T3 TOTAL, SERUM | Routin | 11/27/2018 | Malignant neoplasm | Results for this | | | e | 9:28 AM | of lower third of | procedure are in the | | | | PST | esophagus (HCC) | results section. | + +--------+ + + + | LIPASE, PLASMA | Routin | 11/27/2018 | Malignant neoplasm | Results for this | | | e | 9:28 AM | of lower third of | procedure are in the | | | | PST | esophagus (HCC) | results section. | + +--------+ + + + | LDH TOTAL, PLASMA | Routin | 11/27/2018 | Malignant neoplasm | Results for this | | | e | 9:28 AM | of lower third of | procedure are in the | | | | PST | esophagus (HCC) | results section. | + +--------+ + + + | AMYLASE, PLASMA | Routin | 11/27/2018 | Malignant neoplasm | Results for this | | | e | 9:28 AM | of lower third of | procedure are in the | | | | PST | esophagus (HCC) | results section. | + +--------+ + + + documented in this encounter Results LIPASE, PLASMA (11/27/2018 9:28 AM PST) + +--------+ + + + [...] [facility] | [address] | [place] [address] | | | [address] | [address] | | | + + + + + AMYLASE, PLASMA (11/27/2018 9:28 AM PST) + +-------+ + + + | Component | Value | Ref Range | Performed | Pathologist | | | | | At | Signature | + +-------+ + + + | AMYLASE,KATHY | 33 | 25 - 115 U/L | [facility] | | | S[facility] | | | [...] [facility] | [address] | [place] [address] | | | SERVICES, CORE | [address] | | | + + + + + LDH TOTAL, PLASMA (11/27/2018 9:28 AM PST) + +---------+ + + + | Component | Value | Ref Range | Performed | Pathologist | | | | | At | Signature | + +---------+ + + + | LD TOTAL, | 150 | <=250 U/L | [facility] | | [...] [facility] | [address] | [place] [address] | | | SERVICES, CORE | [address] | | | + + + + + T3 TOTAL, SERUM (11/27/2018 9:28 AM PST) + +--------+ + + + | Component | Value | Ref Range | Performed | Pathologist | | | | | At | Signature | + +--------+ + + + | T3, TOTAL | 82 (L) | 87 - 196 ng/dL | [...] + | [facility] - | [address] | [place] [address] | | | [place] | | | | + + + + + CBC AND AUTO DIFF - [facility] (11/27/2018 9:28 AM PST) + + + + + + | Component | Value | Ref Range | Performed | Pathologist | | | | | At | Signature | + + + + + + | WHITE CELL | 3.33 (L) | 3.50 - 10.80 | [facility] | | | COUNT | | K/cu mm | LABORATORY | | | | | | SERVICES, | | | | | | [facility] + | | | | | | [facility]AL[facility] | | + + + + + + | RED CELL | 3.10 (L) | 4.50 - 6.00 | [facility] | | | COUNT | | M/cu mm | LABORATORY | | | | | | SERVICES, | | | | | | [facility] + | | | | | | [facility]AL[facility] | | + + + + + + | HEMOGLOBIN | 10.4 (L) | 13.5 - 17.5 [...] + + + + | MCV | 98.4 | 80.0 - 100.0 fL | [facility] [...] + + + | RDW SD | 45.7 | 35.1 - 46.3 fL | [facility] [...] + + + + | MPV | 8.5 (L) | 9.7 - 12.3 fL | [facility] | | | | | | LABORATORY | | | | | | SERVICES, | | | | | | [facility] | [facility] + | | | | | | [facility]ALING | | + + + + + + | NEUTROPHIL | 69.7 | 50.0 - 70.0 % | [facility] | | | % | | | LABORATORY | | | | | | SERVICES, | | | | | | [facility] | [facility] + | | | | | | [facility]ALING | | + + + + + + | LYMPHOCYTE | 15.6 (L) | 18.0 - 42.0 % | [facility] | | | % | | | LABORATORY | | | | | | SERVICES, | | | | | | [facility] | [facility] + | | | | | | [facility]ALING | | + + + + + + | MONOCYTE % | 11.4 (H) | 3.5 - 9.0 % | [facility] | | | | | | LABORATORY | | | | | | SERVICES, | | | | | | [facility] | [facility] + | | | | | | [facility]ALING | | + + + + + + | EOS % | 3.0 | 1.0 - 3.0 % | [facility] [...] + + + + | NEUTROPHIL | 2.32 | 1.80 - 7.70 | [facility] | | | # | | K/cu mm | LABORATORY | | | | | | SERVICES, | | | | | | [facility] | [facility] | | [facility] + | | | | | | [facility]ALING | | + + + + + + | LYMPHOCYTE | 0.52 (L) | 1.00 - 4.80 | [facility] | | | # | | K/cu mm | LABORATORY | | | | | | SERVICES, | | | | | | [facility] | [facility] + | | | | | | [facility]ALING | | + + + + + + | MONOCYTE # | 0.38 | 0.10 - 0.90 | [facility] | | | | | K/cu mm | LABORATORY | | | | | | SERVICES, | | | | | | [facility] | [facility] + | | | | | | HEALING | | + + + + + + | EOS # | 0.10 | 0.00 - 0.50 | [facility] | [...] + + | [facility] | [address] | [place] [address] | | | SERVICES, [facility] | | | | | HE[facility] + HEALING | | | | + + + + + [facility] - COMPLETE METABOLIC SET (11/27/2018 9:28 AM PST) + +---------+ + + + | Component | Value | Ref Range | Performed | Pathologist | | | | | At | Signature | + +---------+ + + + | GLUCOSE, | 82 | 70 - 99 mg/dL | [facility] | | | PLASMA | | | LABORATORY | | | (LAB) | | | SERVICES, | | | | | | [facility] | | | | [facility] + | | | | | | HEALING | | + +---------+ + + + | BUN, PLASMA | 7 | 6 - 20 mg/dL | [facility] | | | (LAB) | | | LABORATORY | | | | | | SERVICES, | | | | | | [facility] | [facility] | | [facility] + | | | | | | HEALING | | + +---------+ + + + | CREATININE | 1.10 | 0.70 - 1.30 | [facility] | | | PLASMA | | mg/dL | LABORATORY | | | (LAB) | | | SERVICES, | | | | | | [facility] | [facility] + | | | | | | [facility]ALING | | + +---------+ + + + | SODIUM, | 136 [...] 3.9 | 3.4 - 5.0 | [facility] | | | PLASMA | | mmol/L | LABORATORY | | | (LAB) | | | SERVICES, | | | | | | [facility] | [facility] | | [facility] + | | | | | | [facility]ALING | | + +---------+ + + + | CHLORIDE, | 101 | 97 - 108 mmol/L | [facility] [...] +---------+ + + + | CALCIUM, | 9.3 | 8.6 - 10.2 | [facility] | | | PLASMA | | mg/dL | LABORATORY | | | (LAB) | | | SERVICES, | | | | | | [facility] | [facility] | | [facility] + | | | | | | [facility]ALING | | + +---------+ + + + | BILIRUBIN | 0.5 | 0.3 - 1.2 mg/dL | [facility] | | | TOTAL | | | LABORATORY | | | | | | SERVICES, | | | | | | [facility] | [facility] | | [facility] + | | | | | | HEALING | | + +---------+ + + + | TOTAL | 6.1 | 6.1 - 7.9 g/dL | [facility] [...] + + + | ALK PHOS | 70 | 43 - 92 U/L | [facility] | | | | | | LABORATORY | | | | | | SERVICES, | | | | | | [facility] | | [facility] + | | | | | | HEALING | | + +---------+ + + + | AST(SGOT) | 68 (H) | <=41 U/L | [facility] | | | | | | LABORATORY | | | | | | SERVICES, | | | | | | [facility] | | [facility] + | | | | | | HEALING | | + +---------+ + + + | ALT (SGPT) | 72 (H) | <=60 U/L | [facility] | [...] LABORATORY | [address] | [place] [address] | | | [facility] | | | | | HEALTH + HEALING | | | | + + + + + TSH W/REFLEX TO FREE T4(IF ABNORMAL) (11/27/2018 9:28 AM PST) + +-------+ + + + | Component | Value | Ref Range | Performed | Pathologist | | | | | At | Signature | + +-------+ + + + | TSH | 1.41 | 0.46 - 5.56 | [facility] | [...] | + + + + + | [facility] | [address] | [place] [address] | | | SERVICES, CORE | [address] | | | + + + + + documented in this encounter Visit Diagnoses + + | Diagnosis | + + | 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
--- OUTSIDE RECORDS SUMMARY | ~2019-11-23 | XMS | Encounter Summary ---
Demographics + + + | Address | [address] | | | [place] [address] | + + + | Home Phone [...] Team Providers + +------+ + | Care Medical Insurance Verifier Name | Role | Phone | + [...] | +--------+ + + + + | 06/17/ | Hospital | Hematology/Medical | Onc, Gen [address] | | | 2019 | Encounter | Oncology at [facility] | [address] [place], | | | | | [address] | [place] [address] | | | | | Mailcode: [place] | | | | | | for Health and | | | | | | [facility] | | | | | | [place], [place] | | | | | | [address] | | | | | | [phone] | | | +--------+ + + + [...] + + + | Blood Pressure | 145/88 | 06/17/2019 1:07 PM | | | | | PDT | | + + + + + | Pulse | 51 | 06/17/2019 1:07 PM | | | | | PDT | | + + + + + | Temperature | 36.5 C (97.7 F) | 06/17/2019 1:07 PM | | | | | PDT | | + + + + + | Respiratory Rate | 16 | 06/17/2019 1:07 PM | | | | | PDT | | + + + + + | Oxygen Saturation | 100% | 06/17/2019 1:07 PM | | | | | PDT | | + + + + + | Inhaled Oxygen | - | - | | | Concentration | | | | + + + + + | Weight | 72.8 kg (160 lb 7.9 | 06/17/2019 1:07 PM | | | | oz) | PDT | | + + + + + | Height | - | - | | + + + + + | Body Mass Index | 25.34 | 05/20/2019 1:15 PM | | | | | PDT [...] daily. | | | | | | release(/JESSICA) | | | | | | + [...] + documented as of this encounter Progress Therese Francis RN - 06/17/2019 9:47 AM PDTChemotherapy Nurse Note Name: Jacob Sapp Date: 06/17/2019 Physician: Walt Allergies: Jacob is allergic to codeine. Diagnosis: esophageal ca Significant Other: Nursing Assessment: Fever: no; Diarrhea:No Constipation: No SOB / Cough: no; Rash: no Edema: no; Mucositis: no; Urinary: no; Neuropathy: no; S/S Bleeding: no; Severity (1=Not at all, 2=A little, 3=Quite a bit, 4=Very much) Nausea and/or Vomitin Fatigue: 1 Pain: 0 Narrative: Patient here for INV nivolumab/placebo. PIV in place from starter appt, pt meets treatment parameters. Positive blood return on IV line prior and after infusion. Medication infused with 250ml NS sidearm bag. Pt tolerated without incident. PIV d/c'd and intact. Pt Alert & Oriented x3, No acute distress, Mood & affect appropriate and Recent & remote memory intact and discharged with family/bobcat driver/labor, amb ulatory and instructions have been provided. Refer to [...] | + +---------+ +--------+-------+------+ | INV nivolumab/placebo 480 mg in | New Bag | 06/17/20 | 480 mg | 120 | | | INV NaCl 0.9% IV 480 mg, | | 19 1:46 | | mL/hr | | | intravenous, Administer over 30 | | PM PDT | | | | | Minutes, ONCE, 1 dose, Tue | | | | | | | 06/17/19 at 1315, Pt ID: [id number], | | | | | | | Administer using a 0.2 micron | | | | | | | filter. Flush line with 15-20 mL | | | | | | | of normal saline. For | | | | | | | investigational use only, HIGH | | | | | | | ALERT MEDICATION IRB:[id number], | | | | | | | Protocol:[id number], Infuse using | | | | | | | 0.2 micron filter., | | | | | | + +---------+ +--------+-------+------+ +---+---+ | | | +---+---+ documented in this encounter"
--- OUTSIDE RECORDS SUMMARY | ~2019-11-23 | XMS | Encounter Summary ---
Demographics + + + | Address | [address] | | | [place] [address] | + + + | Home Phone [...] Team Providers + +------+ + | Care Java Web Architect Name | Role | Phone | [...] | [address] | [address] [facility] | | | | | lower third | [facility] | [facility] | | | | | of esophagus | [facility] | Rd | | | | | Esophagus | Road | [facility] [place] | | | | | Ca | [facility] [place] | [address] | | | | | Procedures | [address] | Phone: | | | | | Consult, | Phone: | [phone] | | | | | Sage Wilkins | [phone] | Fax: | | | | | | Fax: | [phone] | | | | | | [phone] | | +--------+--------+ + + + + Encounter Details +--------+ + + + + | Date | Type | Department | Care Team | Description | +--------+ + + + + | 01/10/ | Hospital | Radiation Oncology | | | | 2018 | Encounter | at [facility] [address] | | | | | | [place] | | | | | | [id number] | | | | | | HOSPITAL [place], | | | | | | [place] [address] | | | | | | [phone] | | | +--------+ + + + [...]
--- OUTSIDE RECORDS SUMMARY | ~2019-11-23 | XMS | Encounter Summary ---
Demographics + + + | Address | [address] | | | [place] [address] | + + + | Home Phone [...] Team Providers + +------+ + | Care Play Writer Name | Role | Phone | + +------+ + | Christos Olivarez MD | PCP | | + +------+ + Reason for Visit + + + | Reason | Comments | + + + | Immunotherapy | INV Nivolumab/Placebo | + + + Other (Routine) +--------+---------+ [...] | | | | lower third | [address] | Mailcode: | | | | | of esophagus | [address] | Center for | | | | | Procedures | [place], [place] | Health and | | | | | MD | [address] | Healing, | | | | | SERVICES | Phone: | [address] | | | | | PROVIDED | [phone] | [place], [place] | | | | | PART OF MD | Fax: | [address] | | | | | INJ | [phone] | Phone: | | | | | NIVOLUMAB 1 | | [phone] | | | | | MG Study | | Fax: | | | | | IRB: [id number] | | [phone] | | | | | Study Title: [...] | +--------+ + + + + | 09/17/ | Hospital | Hematology/Medical | A, [address] | | | 2018 | Encounter | Oncology at [facility] | [address] [place], | | | | | [address] | [place] [address] | | | | | Mailcode: [facility] | | | | | | for Health and | | | | | | [facility], [facility] | | | | | | [place], [place] | | | | | | [address] | | | | | | [phone] | | | +--------+ + + + [...] + + + | Blood Pressure | 103/68 | 09/17/2018 10:44 AM | | | | | PDT | | + + + + + | Pulse | 66 | 09/17/2018 10:44 AM | | | | | PDT | | + + + + + | Temperature | 36.6 C (97.9 F) | 09/17/2018 10:44 AM | | | | | PDT | | + + + + + | Respiratory Rate | 16 | 09/17/2018 10:44 AM | | | | | PDT | | + + + + + | Oxygen Saturation | 100% | 09/17/2018 10:44 AM | | | | | PDT | | + + + + + | Inhaled Oxygen | - | - | | | Concentration | | | | + + + + + | Weight | 68.4 kg (150 lb 11.2 | 09/17/2018 10:44 AM | | | | oz) | PDT | | + + + + + | Height | - | - | | + + + + + | Body Mass Index | 22.91 | 09/03/2018 11:47 AM | | | [...] documented as of this encounter Progress Notes Daisy Sheikh RN - 09/17/2018 9:50 AM PDTChemotherapy Nurse Note Name: Jacob Sapp Date: 09/17/2018 Physician: Agusto Allergies: Jacob is allergic to codeine. Diagnosis: stomach CA Significant Other: alone Nursing Assessment: Fever: no; Diarrhea:No Constipation: No SOB / Cough: no; Rash: no Edema: no; Mucositis: no; Urinary: no; Neuropathy: no S/S Bleeding: no; Severity (1=Not at all, 2=A little, 3=Quite a bit, 4=Very much) Nausea and/or Vomiting: Pt states since his surgery if he overeats that he will vomit occas ionally Fatigue: 1 and 2 Pain: denies Narrative: Patient here for INV Nivolumab/Placebo. PIV with brisk BR.Positive blood return on IV line prior and after infusion. Medication inf used with 250ml NS sidearm bag. Pt tolerated without incident. PIV dc'd intact. Pt Aler t & Oriented x3, No acute distress, Mood & affect appropriate and Recent & remote memory int act and discharged ambulatory. Refer to MAR and Onc Lines and Transfusions doc flowsheet for treatment details. documented in this encou nter Plan of [...] 240 mg in | New Bag | 09/17/20 | 240 mg | 120 | | | INV NaCl 0.9% IV 240 mg, | | 18 12:38 | | mL/hr | | | intravenous, Administer over 30 | | PM PDT | | | | | Minutes, ONCE, 1 dose, Tue | | | | | | | 09/17/18 at 1115, Pt ID: [id number], | | | | | | | Administer using a 0.2 micron | | | | | | | filter. Flush line with 15-20 mL | | | | | | | of normal saline. For | | | | | | | investigational use only, HIGH | | | | | | | ALERT MEDICATION IRB:[id number], | | | | | | | Protocol:[id number], Infuse using | | | | | | | 0.2 micron filter., | | | | | | + +---------+ +--------+-------+------+ +---+---+ | | | +---+---+ documented in this encounter"
--- OUTSIDE RECORDS SUMMARY | ~2019-11-23 | XMS | Encounter Summary ---
Demographics + + + | Address | [address] | | | [place] [address] | + + + | Home Phone [...] Team Providers + +------+ + | Care Pomology Teacher Name | Role | Phone | + +------+ + | Christos Olivarez MD | PCP | | + +------+ + Encounter Details +--------+ + + + + | Date | Type | Department | Care Team | Description | +--------+ + + + + | 04/18/ | Physician Internist | Hematology | Krunal Godoy, | Malignant neoplasm | | 2019 | | Oncology Study [address] | ,PhD [address] | of lower third of | | | | [address] | [address] [place], [place] | esophagus (HCC) | | | | Mailcode: [facility] | [address] | (Primary Dx) | | | | [facility] | [phone] | | | | | and [place], | | | | | | [facility] | | | | | | [place], [place] | | | | | | [address] | | | | | | [phone] | | | +--------+ + + + [...] | Routin | Malignant neoplasm | Expected: 04/22/2019 | | TUBES | Blood Draw | e | of lower third of | (Approximate), | | | | | esophagus (HCC) | Expires: 05/19/2020 | + + +--------+ + + documented as of this encounter Results LIPASE, PLASMA (04/22/2019 12:50 PM PDT) + [...] | + + + + + | [facility] | [address] | [place] [address] | | | SERVICES, CORE | [address] [...] | + + + + + | [facility] | [address] | [place] [address] | | | SERVICES, CORE | [address] [...] + + + | [facility] | [address] | [place] [address] | | | [address] | [address] | | | + + + + + documented in this encounter Visit Diagnoses + + | Diagnosis | + + | 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
--- OUTSIDE RECORDS SUMMARY | ~2019-11-23 | XMS | Encounter Summary ---
Demographics + + + | Address | [address] | | | [place] [address] | + + + | Home Phone | | + + + | Preferred Language | Unknown | + + + | Marital Status | | + + + | Cheondoism Affiliation | CAT | + + + | Race | White | + + + | Ethnic Group | Not or | + + + Author + + + | Organization | Unknown | + + + | Address | [...] Team Providers + +------+ + | Care Z Os Mainframe Systems Programmer Name | Role | Phone | + +------+ + | Christos Olivarez MD | PCP | | + +------+ + Encounter Details +--------+--------+ + + + | Date | Type | Department | Care Team | Description | +--------+--------+ + + + | 08/13/ | Travel | | | | | 2018 | | | | | +--------+--------+ + [...]
--- OUTSIDE RECORDS SUMMARY | ~2019-11-23 | XMS | Encounter Summary ---
Demographics + + + | Address | [address] | | | [place] [address] | + + + | Home Phone [...] Team Providers + +------+ + | Care Frame Nailer Name | Role | Phone | + +------+ + | Christos Olivarez MD | PCP | | + +------+ + Encounter Details +--------+ + + + + | Date | Type | Department | Care Team | Description | +--------+ + + + + | 07/22/ | Telephone | Digestive Health | Eleonora Ybarra, | | | 2017 | | Center at [facility] [address] | [address] | | | | | [address] | [place], [place] | | | | | Mailcode: [place] | [address] | | | | | for Health and | [phone] | | | | | Healing, [address] | | | | | | [place], [place] | | | | | | [address] | | | | | | [phone] | | | +--------+ + + + [...]
--- OUTSIDE RECORDS SUMMARY | ~2019-11-23 | XMS | Encounter Summary ---
Demographics + + + | Address | [address] | | | [place] [address] | + + + | Home Phone [...] Team Providers + +------+ + | Care Lead Enterprise Architect Name | Role | Phone | [...] | | 2017 | | Center at [facility] [address] | | - General | | | | [address] | | | | | | Mailcode: [place] | | | | | | [facility] and | | | | | | [facility], [place] [address] | | | | | | [place], [place] | | | | | | [address] | | | | | | [phone] | | | +--------+ + + + [...]
--- OUTSIDE RECORDS SUMMARY | ~2019-11-23 | XMS | Encounter Summary ---
Demographics + + + | Address | [address] | | | [place] [address] | + + + | Home Phone | | + + + | Preferred Language | Unknown | + + + | Marital Status | | + + + | Orthodox Affiliation | CAT | + + + | Race | White | + + + | Ethnic Group | Not or | + + + Author + + + | Author | [facility] | + + + | Organization | [facility] | + + + | Address [...] Team Providers + +------+ + | Care Behavioral Health Clinician Name | Role | Phone | + [...] LAPAROSCOPIC [address] | | | | Rd [facility] Main | [address] [place], | ESOPHAGECTOMY | | | | Hospital Admitting | [place] [address] | MATILDA: RIGHT VATS FOR | | | | Desk Located on the | [phone] | MOBILIZATION OF | | | | 9th floor | | ESOPHAGUS, DIVISION | | | | [place], [place] | | OF AZYGOUS VEIN, | | | | [address] | | LIGATION OF LEFT | | [...] for a total o f 90 days. vyxbgboxacrj-mnzb-gzndwcdv Liqd Commonly known as: CEROVITE 15 mL [...] Zamora MD General Surgery, R4 Pager # [phone] Brian Barajas MD - 05/21/2018 7:03 AM [...] MD Otolaryngology-Head & Neck Surgery, PGY1 Pager: [phone] rexel, Cherie Ang MD - 05/20/2018 12:50 [...] Zamora MD General Surgery, R4 Pager # [phone] Bebe Leija MD - 8:58 AM PDT [...] pain medications per primary team, pt prefers [place] APS will sign off, please re-page with [...] MD Otolaryngology-Head & Neck Surgery, PGY1 Pager: [phone] Chula Bishop MD - 05/19 8:38 AM [...] MD Otolaryngology-Head & Neck Surgery, PGY1 Pager: [phone] STAFF: I personally interviewed the patient, performed [...] and summary of old medical records (source: [employer]), as summarized in the body of the note. Discussion of case with another healthcare provider Nurse. Please page APS #[phone] with questions and concerns. TRINO ROACH MD [...] week Darin Zaragoza MD General Surgery PGY2 [id number] STAFF: I personally interviewed the patient, performed [...] and summary of old medical records (source: [employer]), as summarized in the body of the note. Discussion of case with another healthcare provider Nurse, surgery. Please page APS #[phone] with questions and concerns. TRINO ROACH MD [...] scheduled Discussed with RN. Please page APS #[phone] with questions and concerns. Tio Siegel NP Chlua Bishop MD - 0 05/17/2018 6:49 AM [...] sugars controlled no DM Disposition: transfer to [facility] Brian Villafuerte MD Otolaryngology-Head & Neck Surgery, PGY1 Pager: [phone] STAFF: I personally interviewed the patient, performed [...] wilkerson later today after diuresis -transfer to [facility] with telemetry Neuro #pain: appreciate APS, [...] sugars controlled no DM Disposition: transfer to [facility] Seen and discussed with Dr Chula Pal MD Signed: DARIN ZARAGOZA MD General Surgery [facility] Department of Surgery STAFF: I personally [...] attrib uted to esophageal spasm, never had OH or stent Diverticulosis GERD without esophagitis Hernia, [...] Evelyn Mancia NP Adult Pain Service Pager [phone] Team Pager [phone] Darius Chu MD - 05/16/2018 7:46 AM [...] None Spines:Cleared CODE: Full Disposition: [facility] Chula Liao MD Emergency Medicine Resident, PGY2 [facility] Pager #[phone] I saw and evaluated the patient. I agree with the findings and the plan of care as tom godfrey in the resident s note. DARIUS PIEDRA MD [address] [place] [id number] hLeidy gregg PA- C - 05/15/2018 11:22 AM PDT Trauma and Surgical ICU Daily Progress Note Author: LEIDY GUSMAN PA-C Date: 05/15/2018 11:23 AM Hospital Day: 1 ICU Day: 2 HPI: Jacob Iverson is a 67 y.o. M with CAD (on ASA, statin, beta chel, no stents), HLD, HTN , depression, [id number] esophageal adenocarcinoma diagnosed in 11/11 after workup [...] Department of Surgery Mail Code: L611 [address] [place] [address] Associated attestation - Debra Jon MD,MPH - [...] encounter. Signed: DARIN ZARAGOZA MD General Surgery [facility] [place] Department of Surgery Mary Janeexvidhi, Cherie Ang [...] Wagoner MD General Surgery, R4 Pager # [phone] hitEvelyn patrick N P - 05/15/2018 7:24 [...] attrib uted to esophageal spasm, never had OH or stent Diverticulosis GERD without esophagitis Hernia, [...] Evelyn Mancia NP Adult Pain Service Pager [phone] Team Pager [phone] documented in this e ncounter Plan of [...] | | | LABORATORY | | | [place] | | | SERVICES, | | | [...] | + + + + + | [facility] | [address] | [place] [address] | | | SERVICES, CORE | KATHERINE [...] | + + + + + | [facility] | [address] | [place] [address] | | | SERVICES, [facility] | [address] | | | + + + + + X-RAY PORTABLE CHEST 1 VIEW (05/22/2018 4:48 AM PDT) + + | Specimen | + + | | + + + + + | Narrative | Performed At | + + + | EXAM: MO CHEST 1 VIEW HISTORY: s/p 3 field esophagectomy 05/14 | [facility] | | COMPARISON: Yesterday FINDINGS: Right chest [...] Interface - 05/22/2018 9:22 AM PDT EXAM: MO CHEST 1 | | VIEW HISTORY: s/p [...] 13K | | | [address] [facility] Mailcode: [id number] [place] [address] | | | [phone] | | + + + X-RAY ESOPHAGRAM (05/21/2018 8:48 AM PDT) + + | Specimen | + + | | + + + + + | Narrative | Performed At | + + + | EXAM: Esophagram with missile facilities repairer radiograph HISTORY: Assess for | [facility] | [...] AM PDT EXAM: Esophagram | | with missile facilities repairer radiograph HISTORY: Assess for anastomotic leak COMPARISON: [...] | | | LABORATORY | | | [place] | | | SERVICES, | | | [...] the MDRD equation recommended by the | [facility] | | National Kidney Disease Education Program. [...] | + + + + + | [facility] | [address] | [place] [address] | | | TIMO, JUSTIN | PARK [...] | + + + + + | [facility] | [address] | [place] [address] | | | JUSTIN GREENWOOD | [address] | | | + + + + + X-RAY PORTABLE CHEST 1 VIEW (05/21/2018 4:55 AM PDT) + + | Specimen | + + | | + + + + + | Narrative | Performed At | + + + | EXAM: MO CHEST 1 VIEW HISTORY: s/p 3 field [...] Interface - 05/21/2018 8:49 AM PDT EXAM: MO CHEST 1 | | VIEW HISTORY: s/p [...] At | + + + | EXAM: MO CHEST 1 VIEW HISTORY: s/p 3 field [...] Interface - 05/20/2018 9:20 AM PDT EXAM: MO CHEST 1 | | VIEW HISTORY: s/p [...] | | | LABORATORY | | | [place] | | | SERVICES, | | | [...] the MDRD equation recommended by the | [facility] | | National Kidney Disease Education Program. [...] + + | Performing | Address | City/State/[facility] | Phone Number | | Organization | | | | + + + + + | [facility] | [address] | [place] [address] | | | TIMO, CORE | KATHERINE [...] | | LABORATORY | | | TIMO, JUSITN | + + + + + + + + | Performing | Address | City/State/Zipcode | Phone Number | | Organization | | | | + + + + + | [facility] | [address] | [place] [address] | | | TIMO, JUSTIN | KATHERINE [...] [facility] | [address] | [place], [place] | | | MARISELA MATT OF CARE | [address] | [address] | | | TESTS | | | [...] At | + + + | EXAM: MO CHEST 1 VIEW HISTORY: s/p 3 field [...] Interface - 05/19/2018 11:10 AM PDT EXAM: MO CHEST 1 | | VIEW HISTORY: s/p [...] Gaspar MD 05/19/2018 11:09 AM | |Preliminary: Kvaeh Gaspar MD | |Dictation initiated: Kaveh Gaspar [...] [facility] | [address] | [place], [place] | | | [facility] | [address] | [address] | | | TESTS | | | [...] | | | LABORATORY | | | [place] | | | SERVICES, | | | [...] | + + + + + | [facility] | [address] | [place] [address] | | | TIMO, JUSTIN | KATHERINE [...] [facility] | [address] | [place] [address] | | | TIMO, JUSTIN | KATHERINE [...] [facility] | [address] | [place], [place] | | | [facility] | [address] | [address] | | | TESTS | | | [...] + + | Performing | Address | City/State/[facility] | Phone Number | | Organization | | | | + + + + + | [facility] | [address] | [place], [place] | | | MARISELA M[facility] | [facility] | [address] | | | TESTS | | | [...] + | [facility] | [address] [facility] [address] | [place], [place] | | | MARISELA MATT OF [facility] | [address] | [address] | | | TESTS | | | | + + + + + X-RAY PORTABLE CHEST 1 VIEW (05/18/2018 5:39 AM PDT) + + | Specimen | + + | | + + + + + | Narrative | Performed At | + + + | EXAM: MO CHEST 1 VIEW HISTORY: s/p 3 field [...] Interface - 05/18/2018 9:40 AM PDT EXAM: MO CHEST 1 | | VIEW HISTORY: s/p [...] MCHC, PLT, IG% and IG# effective | [facility] | | 04/04/2018 | LABORATORY | | | JUSTIN [address]OD | + + + + + + + + | Performing | Address | City/State/Zipcode | Phone Number | | Organization | | | | + + + + + | [facility] | [address] | [place] [address] | | | JUSTIN GREENWOOD | KATHERINE [...] | | | LABORATORY | | | [place] | | | SERVICES, | | | [...] | + + + + + | [facility] | [address] | [place] [address] | | | SERVICES, CORE | PARK [...] | + + + + + | [facility] | [address] | [place] [address] | | | SERVICES, CORE | KATHERINE [...] At | + + + | EXAM: MO CHEST 1 VIEW HISTORY: Esophageal adenocarcinoma status [...] Interface - 05/17/2018 2:18 PM PDT EXAM: MO CHEST 1 | | VIEW HISTORY: Esophageal [...] | + + + + + | [facility] | [address] | [place] [address] | | | SERVICESJUSTIN | [address] [...] | | | LABORATORY | | | [place]ICAN | | | SERVICES, | | | [...] | + + + + + | [facility] | [address] [facility] | [place] [address] | | | SERVICES, JUSTIN | KATHERINE [...] | + + + + + | [facility] | [address] | [place] [address] | | | SERVICES, CORE | KATHERINE [...] [facility] | [address] | [place] [address] | | | JUSTIN GREENWOOD | KATHERINE [...] | | | LABORATORY | | | [place]ICAN | | | SERVICES, | | | [...] | + + + + + | [facility] | [address] | [place] [address] | | | SERVICES, CORE | [address] | | | + + + + + PROCEDURE NOTE (05/16/2018 1:51 PM PDT)X-RAY PORTABLE CHEST 1 VIEW (05/16/2018 6:21 AM PD T) + + | Specimen | + + | | + + + + + | Narrative | Performed At | + + + | EXAM: MO CHEST 1 VIEW HISTORY: Esophageal adenocarcinoma status [...] Interface - 05/16/2018 11:25 AM PDT EXAM: MO CHEST 1 | | VIEW HISTORY: Esophageal [...] | + + + + + | [facility] | [address] | [place] [address] | | | SERVICES, CORE | PARK [...] [facility] | [address] | [place] [address] | | | SERVICES, CORE | PARK [...] | | | LABORATORY | | | M[place]ICAN | | | SERVICES, | | | [...] | + + + + + | [facility] | [address] [facility] | [place] [address] | | | JUSTIN GREENWOOD | [address] | | | + + + + + X-RAY PORTABLE CHEST 1 VIEW (05/15/2018 5:44 AM PDT) + + | Specimen | + + | | + + + + + | Narrative | Performed At | + + + | EXAM: MO CHEST 1 VIEW HISTORY: 67-year-old male with [...] Interface - 05/15/2018 10:11 AM PDT EXAM: MO CHEST 1 | | VIEW HISTORY: 67-year-old [...] | + + + + + | [facility] | [address] | [place] [address] | | | SERVICES, CORE | KATHERINE [...] [facility] | [address] | [place] [address] | | | SERVICES, CORE | PARK [...] | | | LABORATORY | | | [place] | | | SERVICES, | | | [...] the MDRD equation recommended by the | [facility] | | National Kidney Disease Education Program. [...] | + + + + + | [facility] | [address] | [place] [address] | | | JUSTIN GREENWOOD | [address]INE [...] | Darin Zaragoza MD 05/15/2018 12:34 PM [facility] Department of | | | Surgery Operative Report Author: Darin Zaragoza MD Attending | | | Physician: Juvenal Vicente MD 05/14/2018 PATIENT INFORMATION | | | Patient Name: Jacob Iverson Date of | | | : 1950 Date of Surgery: 05/14/2018 Attending Surgeon: | | | Dr Juvenal Vicente Statistics Professor Surgeon: Darin Zaragoza MD R2 | | [...] ------- Darin Zaragoza MD General Surgery PGY2 [id number] | | | | | + + + X-RAY PORTABLE CHEST 1 VIEW (05/14/2018 5:54 PM PDT) + + | Specimen | + + | | + + + + + | Narrative | Performed At | + + + | EXAM: MO CHEST 1 VIEW HISTORY: 67-year-old male with [...] Interface - 05/15/2018 10:10 AM PDT EXAM: MO CHEST 1 | | VIEW HISTORY: 67-year-old [...] [facility] | [address] | [place] [address] | | | SERVICES, CORE | PARK [...] | + + + + + | [facility] | [address] [facility] | [place] [address] | | | SERVICES, JUSTIN | KATHERINE [...] [facility] | [address] | [place] [address] | | | SERVICES, CORE | KATHERINE [...] | + + + + + | [facility] | [address] | [place], [place] | | | MARISELA MATT OF CARE | [facility] | [address] | | | TESTS | | | [...] [facility] | [address] | [place] [address] | | | SERVICES, JUSTIN | KATHERINE [...] | | | LABORATORY | | | M[place]ICAN | | | SERVICES, | | | [...] | + + + + + | [facility] | [address] | [place] [address] | | | SERVICES, JUSTIN | [address] | | | + + + + + PROCEDURE NOTE (05/14/2018 5:01 PM PDT) + + + | Narrative | Performed At | + + + | Chula Pal MD 05/15/2018 4:59 PM [facility] Department | | | of Surgery Operative [...] Co-Surgeon: Chula Pal MD | | | Statistics Professor(s): Anibal Craven MD Indication: A 67 y.o. [...] secured this in place using and Iron Assistant Community Manager | | | retractor. The Wingman retractor [...] and the RSI. - Anibal Craven MD [facility] Department of Surgery | | | Pager: [phone] CO SURGEON NOTE: Attending Surgeon: Dr. Sanford | | | Jules Co-Surgeons: Dr. Chula Pal (abdomen); Dr. Wisdom | | | (Thoracic) Statistics Professor(s): Anibal | | | MD Merissa; Charles [...] place using | | | and Iron Assistant Community Manager retractor. The Wingman retractor was deployed to [...] Co-Surgeon: Chula Pal MD | | | Statistics Professor(s): Anibal Craven MD Prior to the beginning [...] Plan: direct to ICU Anibal Craven MD [facility] Department of | | | Surgery Pager: [phone] | | + + + ABG-FULL ABL, [...] [facility] | [address] | [place], [place] | | | MARISELA MATT OF [facility] | [facility] | [address] | | | TESTS | | | [...] (H) | 70 - 99 mg/dL | [facility] - | | | GLUCOSE, | | [...] [facility] | [address] | [place], [place] | | | MARISELA MATT OF CARE | [address] | [address] | | | TESTS | | | | + + + + + PROCEDURE NOTE (05/14/2018 2:05 PM PDT) + + + | Narrative | Performed At | + + + | Dalton Wisdom MD 05/14/2018 2:11 PM Operative note | | | Date of surgery: 05/14/18 Attending Surgeon: Dalton Wisdom M.D. | | | Co-Surgeon: Juvenal Vicente M.D. Statistics Professor(s): | | | Cherie Zamora MD [facility], PAC Preoperative | | | Diagnosis(es): Esophageal [...] None apparent. Drains: | | | Bilateral 28-English chest tubes. Findings: Level 7,8L, | | [...] the Harmonic | | | scalpel. A Douglas drain was placed around the esophagus for [...] operative field for hemostasis. We placed a 28-English | | | chest tube through the [...] | | procedure. Dalton Wisdom M.D. FACS Tailer Off | | | of Surgery [facility] Division of | | | Cardiothoracic Surgery Section of Thoracic Surgery [address] [place] [address] | | | Mike Katherine , [address] [place] [address] Telephone: | | | [phone] | | + + + ABG-FULL ABL, [...] + + | [facility] | [address] | [place], [place] | | | MARISELA MATT OF CARE | [facility] | [address] | | | TESTS | | | [...] 9R and 8L LNs Drains: bilateral 28 latvian chest tubes | | | Disposition: remains [...] + + + | [facility] | [address] | [place], [place] | | | [facility] | [address] | [address] | | | TESTS | | | [...] protocol | | | | | | ([place] [facility]) that | | | | | [...] | | | | | | from [email or web address] according | | | | | | to material coordinator's | | | | | | instructions with | | | | | | appropriate controls. | | | | | | Inadequate specimens are | | | | | | not reported. [facility] | | | | | | participates [...] 52(7): | | | | | | [phone]. Alexis Barker | | | | | [...] Lancet. | | | | | | 2009;376(7243):[id number].A | | | | | | nalyte [...] | | | | | determined by [facility] | | | | | | laboratories. [...] DEPARTMENT | | | | reviewed at [facility]). Per | | OF | | | [...] | | | | | | number [id number]. 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 leather goods | | | | | | closest [...] tissue)G14, | | | | | | vnsqkhvwnG33 | | | | | | | | | | | | G16, nodular gastric | | | | | | mucosa directly distal | | | | | | to GE bggzomndW70, | | | | | | nodular gastric | | | | | | pmedxrI09, 2 possible | | | | | | nodes each bisected and | | | | | | differentially inked | | | | | | (esophagus)G19, 4 | | | | | | possible nodes intact | | | | | | (esophagus)G20, one | | | | | | possible node bisected | | | | | | (greater jyxfjajaiB06, 5 | | | | | | [...] | + + + + + | [facility] DEPARTMENT | [address] | [place] [address] | | | PATHOLOGY | [address] [...] + + + | [facility] | [address] | [place], [place] | | | [facility] | [address] | [address] | | | TESTS | | | [...] [facility] | [address] | [place], [place] | | | MARISELA MATT [facility] | [address] | [address] | | | TESTS | | | [...] | | | | | modification) on [facility] 05/16/18 at | | | | | [...] | | | | First dose on [facility] 05/16/18 at | | AM PDT | [...] 18 7:12 | | | | | [facility] 05/16/18 at 1104, Until Wed | | [...]
--- OUTSIDE RECORDS SUMMARY | ~2019-11-23 | XMS | Clinical Summary ---
Demographics + + + | Address | [address] | | | [place] [address] | + + + | Home Phone | | + + + | Preferred Language | Unknown | + + + | Marital Status | | + + + | Samaritan Affiliation | CAT | + + + | Race | White | + + + | Ethnic Group | Not or | + + + Author + + + | Author | NON REVENUE LOCATIONS | + + + | Organization | NON REVENUE LOCATIONS | + + + | Address | [...] Team Providers + +------+ + | Care Administrative Office Specialist Name | Role | Phone | + +------+ + | Christos Olivarez MD | PCP | | + +------+ + Source Comments [facility] is fully live on both EpicCare Ambulatory and EpicCare InPatient.[facility] Allergies + + + + + + | Active Allergy | Reactions | Severity | Noted | Comments | | | | | Date | | + + + + + + | Codeine | Unknown | | 11/14/20 | | | | | | 17 | | + + + + + + Medications + + + +---------+------+------+-------+ | Medication | Sig | Dispensed | Refills | Star | End | Statu | | | | | | t | Date | s | | | | | | Date | | | + + + +---------+------+------+-------+ | LORazepam 1 mg | Take 1 mg by mouth | | 0 | | | Activ | | oral tablet | as needed for | | | | | e | | | anxiety (and sleep). | | | | | | + + + +---------+------+------+-------+ | propranolol 60 mg | Take 0.5 tablets by | 30 | 1 | 06/2 | | Activ | | oral tablet | mouth two times | tablet | | 7/20 | | e | | | daily. | | | 18 | | | + + + +---------+------+------+-------+ | | Take 1 tablet by | | 0 | | | Activ | | HYDROcodone-acetamin | mouth every four | | | | | e | | ophen 10-325 mg oral | hours as needed. Pt | | | | | | | tablet | reports taking 2 | | | | | | | | tablets twice daily, | | | | | | | | morning and evening | | | | | | | | and one tablet | | | | | | | | during the day | | | | | | + + + +---------+------+------+-------+ | DULoxetine 30 mg | Take 30 mg by mouth | | 0 | | | Activ | | oral capsule,delayed | once daily. | | | | | e | | release(DR/EC) | | | | | | | + + + +---------+------+------+-------+ | tamsulosin | Take 1 capsule by | 30 | 5 | 09/ | | Activ | | (FLOMAX) 0.4 mg oral | mouth once daily. | capsule | | 05/15 | | e | | capsule | | | | 18 | | | + + + +---------+------+------+-------+ | atorvastatin | Take by mouth. | | 0 | | | Activ | | calcium | | | | | | e | | (ATORVASTATIN ORAL) | | | | | | | + + + +---------+------+------+-------+ | prochlorperazine | Take 0.5-1 tablets | 60 | 2 | 01/1 | | Activ | | 10 mg oral tablet | by mouth four times | tablet | | 5/20 | | e | | | daily as needed for | | | 19 | | | | | nausea/vomiting. Max | | | | | | | | dose: 40 mg/day | | | | | | + + + +---------+------+------+-------+ | LEVOTHYROXINE 25 | TAKE ONE TABLET BY | 30 | 1 | 05/2 | | Activ | | mcg oral tablet | MOUTH EVERY DAY | tablet | | 2/20 | | e | | | BEFORE BREAKFAST. | | | 19 | | | + + + +---------+------+------+-------+ | escitalopram | Take 10 mg by mouth | | 0 | | | Activ | | oxalate 10 mg oral | once daily. | | | | | e | | tablet | | | | | | | + + + +---------+------+------+-------+ | omeprazole | Take 2 capsules by | 30 | 5 | 07/2 | | Activ | | (PRILOSEC) 20 mg | mouth once daily in | capsule | | 3/20 | | e | | oral capsule,delayed | the morning. | | | 19 | | | | release(DR/EC) | | | | | | | + + + +---------+------+------+-------+ | ondansetron ODT | Dissolve 1-2 tablets | 20 | 1 | 08/ | | Activ | | (ZOFRAN ODT) 4 mg | on tongue and | tablet | | 4/20 | | e | | oral | swallow every twelve | | | 19 | | | | tablet,disintegratin | hours as needed. | | | | | | | g | | | | | | | + + + +---------+------+------+-------+ Active Problems + + + | Problem | Noted Date | + + + | Hypothyroidism due to medication | 06/17/2019 | + + + | Abdominal wall mass of right lower quadrant | 05/20/2019 | + + + | Encounter for antineoplastic immunotherapy | 03/20/2019 | + + + | Nausea | 01/22/2019 | + + + | Fatigue | 01/22/2019 | + + + | Neck pain | 01/22/2019 | + + + | Malignant neoplasm of lower third of esophagus | 04/10/2018 | + + + + + | Cancer Staging: Clinical: UnsignedPathologic: Stage IIIB (pT3, | | pN2, cM0) - Signed by Marie Liz Md on 07/31/2018 | + + + + + | Clinical trial exam | 01/30/2018 | + + + | Tumor in Blood Study Participant #[id number] | 12/14/2017 | + + + + + | Overview: This patient consented to participate in our study | | Tumor in Blood #[id number], on 12/06/2017. We will request a sample of | | the patient's tumor along with obtaining a blood sample at | | regular scheduled clinic appointments. Please contact the study | | coordinators, Ami Marin at [email or web address] or Lexi Malone | | at [email or web address], if you have any questions.[facility]: | | [phone] ID: [id number] | + + Resolved Problems + + + + | Problem | Noted | Resolved | | | Date | Date | + + + + | Urinary retention | 01/22/20 | | | | 19 | 9 | + + + + | Acute post-operative pain | 05/17/20 | | | | 18 | 8 | + + + + | Primary adenocarcinoma of distal third of esophagus | 05/17/20 | | | | 18 | 8 | + + + + | Jejunostomy tube present | 05/17/20 | | | | 18 | 8 | + + + + | Feeding tube dysfunction | 04/10/20 | | | | 18 | 8 | + + + + Encounters +--------+ + + + + | Date | Type | Specialty | Care Team | Description | +--------+ + + + + | 10/06/ | Refill | Hematology & | Krunal Godoy, | Refill Request | | 2018 | | Oncology | PhD CINDY | (prochlorperazine 10 | | | | | | mg oral tablet) | +--------+ + + + + | 09/23/ | Lab | Anatomic Pathology | Krunal Godoy, | | | 2018 | Requisition | | PhD CINDY | | +--------+ + + + + | 09/03/ | Telephone | Hematology & | Rebecca Booth | Research | | 2018 | | Oncology | | Documentation | | | | | | (Patient declined | | | | | | Safety Follow-Up | | | | | | visits.) | +--------+ + + + + | 09/02/ | Bioprocess Development Engineer | Hematology & | Rebecca Booth | Malignant neoplasm | | 2018 | | Oncology | | of lower third of | | | | | | esophagus (HCC) | | | | | | (Primary Dx); Other | | | | | | specified disorders | | | | | | involving the immune | | | | | | mechanism, not | | | | | | elsewhere classified | | | | | | (HCC) | +--------+ + + + + | 08/29/ | Bioprocess Development Engineer | Hematology & | Rebecca Booth | | | 2018 | | Oncology | | | +--------+ + + + + from Last 3 Months Immunizations + + + + | Name | Administration Dates | Next Due | + + + + | [id number], | 07/25/2017 | | | injectable | | | + + + + Family History + + +------+ + | Medical History | Relation | Name | Comments | + + +------+ + | No Known Problems | Father | | | + + +------+ + | No Known Problems | Mother | | | + + +------+ + + +------+--------+ + | Relation | Name | Status | Comments | + +------+--------+ + | Father | | | | + +------+--------+ + | Mother | | | | + +------+--------+ + Social History + +-------+ +--------+ + [...] recent travel history available. | + + Last Filed Vital Signs + + + [...] 9.6 | 08/13/2019 2:53 PM | wit jacki | | | oz) | PDT | | + + + + + | Height | 172.7 cm (5' 8") | 07/15/2019 1:44 PM | | | | | PDT | | + + + + + | Body Mass Index | 22.44 | 07/15/2019 1:44 PM | | | | | PDT | | + + + + + Plan of Treatment + + + + + | Health Maintenance | Due Date | Last Done | Comments | + + + + + | Pneumococcal | | | | | vaccination (1 of 2 | 6 | | | | - PCV13) | | | | + + + + + | Influenza (Flu) | | 07/25/2017, 07/25/2017 | | | vaccination (#1) | 9 | | | + + + + + Implants + +------+--------+ +--------+--------+--------+ | Implanted | Type | Area | Manufacture | Device | Shelf | Model | | | | | r | | Expira | / | | | | | | Identi | tion | Serial | | | | | | fier | Date | / Lot | + +------+--------+ +--------+--------+--------+ | [place] [employer] 6x1in | | N/A: | BARD | | 12/23/ | [id number] | | Thk1.65mm Ptfe Patch Sterile | | Abdome | | | 2022 | / | | - [id number]: Qty: 1 | | n | | | | /[id number] | | on 05/14/2018 by Jules, | | | | | | 169 | | MD Juvenal at [facility] | | | | | | | | REV LOC | | | | | | | + +------+--------+ +--------+--------+--------+ + +------+------+ +--------+--------+--------+ | Explanted | Type | Area | Manufacture | Device | Shelf | Model | | | | | r | | Expira | / | | | | | | Identi | tion | Serial | | | | | | fier | Date | / Lot | + +------+------+ +--------+--------+--------+ | Port | | | | | | | + +------+------+ +--------+--------+--------+ + + | Description:No evidence of | | port found M Saenz Rad RN | + + Procedures + +--------+ + + + | Procedure Name | Priori | Date/Time | Associated Diagnosis | Comments | | | ty | | | | + +--------+ + + + | SURGICAL PATHOLOGY - | Routin | 09/23/2019 | Secondary | Results for this | | TECHNICAL ONLY | e | 1:51 PM | malignant neoplasm | procedure are in the | | (ONLY FOR LAB USE) | | PDT | of skin (HCC) | results section. | + +--------+ + + + from Last 3 Months Results SURGICAL PATHOLOGY - TECHNICAL ONLY (ONLY FOR LAB USE) (09/23/2019 1:51 PM PDT) + + + + + + | Component | Value | Ref Range | Performed | Pathologist | | | | | At | Signature | + + + + + + | Gross | No results expected in | | [facility] | | | Description | chart - technical only | | DEPARTMENT | | | | request. | | OF | | | | | | PATHOLOGY | | + + + + + + + + | Specimen | + + | Slide-Block | + + + + + + + | Performing | Address | City/State/Zipcode | Phone Number | | Organization | | | | + + + + + | [facility] | [address] | [place] [address] | | | PATHOLOGY | [address] | | | + + + + + from Last 3 Months Insurance + +--------+ +--------+ + +--------+ | Payer | Benefi | Subscriber | Effect | Phone | Address | Type | | | t Plan | ID | gentry | | | | | | / | | Dates | | | | | | Group | | | | | | + +--------+ +--------+ + +--------+ | MEDICARE | MEDICA | xxxxxxxxxxx | 07/27/20 | [phone] | [address] | Medica | | | RE A & | | 16-Pre | 1 | [phone] | re | | | B | | sent | | [place] | | | | | | | | [address] | | + +--------+ +--------+ + +--------+ | [place] | x[place] | Effect | [phone] | [address] | Agency | | ADMINISTRATION | COMMUN | | gentry | [phone] | | | | ITY | | for | | [place], | | | | [place] | | all | | [place] [address] | | | | RCE | | dates | | | | + +--------+ +--------+ + +--------+ + +--------+ +--------+ + + | Guarantor Name | Accoun | Relation to | Date | Phone | Billing Address | | | t Type | Patient | of | | | | | | | | | | + +--------+ +--------+ + + | Jacob Sapp | Person | Self [birth year] | [address] | | | al/Fam | | 1950 | [phone] | [place] [address] | | | marsha | | | 5 (Home) | | + +--------+ +--------+ + + | Jacob Sapp | [place] | Self | [birth year] | [address] | | | [place] | | 1950 | [phone] | [place] [address] | | | red | | | 5 (Home) | | + +--------+ +--------+ + + Advance Directives + + + + + | Code Status | Date | Date | Comments | | | Activated | Inactivated | | + + + + + | Full Code | 05/14/2018 | 05/22/2018 | | | | 6:08 AM | 8:07 PM | | + + + + + + + + +---+ | | | | | + + + +---+ | Full Code | 04/10/2018 | 04/10/2018 | | | | 6:49 AM | 9:08 PM | | + + + +---+
--- OUTSIDE RECORDS SUMMARY | ~2019-11-23 | XMS | Encounter Summary ---
Demographics + + + | Address | [address] | | | [place] [address] | + + + | Home Phone | | + + + | Preferred Language | Unknown | + + + | Marital Status | | + + + | Gnosticism Affiliation | CAT | + + + | Race | White | + + + | Ethnic Group | Not or | + + + Author + + + | Author | [facility] | + + + | Organization | [facility] | + + + | [...] Team Providers + +------+ + | Care Lapidarist Name | Role | Phone | + +------+ + | Christos Olivarez MD | PCP | | + +------+ + Reason for Visit + + + | Reason | Comments | + + + | Ambulatory | Study Nivolumab/placebo | | Chemotherapy | | + + + Encounter Details +--------+ + + + + | Date | Type | Department | Care Team | Description | +--------+ + + + + | 03/26/ | Hospital | Hematology/Medical | Onc, Gen [address] | | | 2019 | Encounter | Oncology at [facility] | [address] [place], | | | | | [address] | [place] [address] | | | | | Mailcode: [place] | | | | | | [facility] | | | | | | Healing, [address] | | | | | | [place], [place] | | | | | | [address] | | | | | | [phone] | | | +--------+ + + + [...] + + + | Blood Pressure | 142/91 | 03/26/2019 11:40 AM | | | | | PDT | | + + + + + | Pulse | 53 | 03/26/2019 11:40 AM | | | | | PDT | | + + + + + | Temperature | 36.8 C (98.2 F) | 03/26/2019 11:40 AM | | | | | PDT | | + + + + + | Respiratory Rate | 17 | 03/26/2019 11:40 AM | | | | | PDT | | + + + + + | Oxygen Saturation | 100% | 03/26/2019 11:40 AM | | | | | PDT | | + + + + + | Inhaled Oxygen | - | - | | | Concentration | | | | + + + + + | Weight | 76.5 kg (168 lb 9.6 | 03/26/2019 11:40 AM | | | | oz) | PDT | | + + + + + | Height | - | - | | + + + + + | Body Mass Index | 25.64 | 12/24/2018 9:35 AM | | | [...] documented as of this encounter Progress Notes Kings Yi RN - 03/26/2019 9:46 AM PDTChemotherapy Nurse Note Name: Jacob Sapp Date: 03/26/2019 Physician: Walt Allergies: Jacob is allergic to codeine. Diagnosis: esophageal cancer Significant Other: Nursing Assessment: Fever: no; Diarrhea:No Constipation: No SOB / Cough: no; Rash: no Edema: no; Mucositis: no; Urinary: no; Neuropathy: no; S/S Bleeding: no; Severity (1=Not at all, 2=A little, 3=Quite a bit, 4=Very much) Nausea and/or Vomitin Fatigue: 1 Pain: 0 Narrative: Patient here for Nivolumab/placebo study drug. Pt meets criteria for study prot ocol. Labs drawn by Starter RN, reviewed. Nivolumab/placebo study drug checked with 2 RNs p er protocol, + blood return noted before infusion, infusion completed without incident, + bl ood return noted after infusion. PIV dc'd intact; Pt dc home at 1310. Medication infused with 250ml NS sidearm bag. Refer to MAR and Onc Lines and Transfusions doc flowsheet for treatment details. Electronic ally signed by Kings Yi RN at 03/26/2019 3:31 PM PDTdocumented in this encounter Plan of Treatment [...] 480 mg in | New Bag | 03/26/20 | 480 mg | 120 | | | INV NaCl 0.9% IV 480 mg, | | 19 12:30 | | mL/hr | | | intravenous, Administer over 30 | | PM PDT | | | | | Minutes, ONCE, 1 dose, 03/26/19 | | | | | | | at 1130, Pt ID: [id number], | | | | | | | Administer using a 0.2 micron | | | | | | | filter. Flush line with 15-20 mL | | | | | | | of normal saline. For | | | | | | | investigational use only, HIGH | | | | | | | ALERT MEDICATION IRB:[id number], | | | | | | | Protocol:[id number], Infuse using | | | | | | | 0.2 micron filter., | | | | | | + +---------+ +--------+-------+------+ +---+---+ | | | +---+---+ documented in this encounter"
--- OUTSIDE RECORDS SUMMARY | ~2019-11-23 | XMS | Encounter Summary ---
Demographics + + + | Address | [address] | | | [place] [address] | + + + | Home Phone | | + + + | Preferred Language | Unknown | + + + | Marital Status | | + + + | Yazdanism Affiliation | CAT | + + + | Race | White | + + + | Ethnic Group | Not or | + + + Author + + + | Author | [facility] | + + + | Organization | [facility] | + + + | [...] Providers + +------+ + | Care Manager Internet Name | Role | Phone | + +------+ + | Christos Olivarez MD | PCP | | + +------+ + Encounter Details +--------+ + + + + | Date | Type | Department | Care Team | Description | +--------+ + + + + | 05/16/ | College Admissions Counselor | Hematology | Krunal Godoy, | Malignant neoplasm | | 2019 | | Oncology Study [address] | ,PhD [address] | of lower third of | | | | [address] | [address] [place], [place] | esophagus (HCC) | | | | Mailcode: CH7M | [address] | (Primary Dx) | | | | [facility] | [phone] | | | | | and Monika, | | | | | | [facility] | | | | | | [place], [place] | | | | | | [address] | | | | | | [phone] | | | +--------+ + + + [...] as of this encounter Results AMYLASE, PLASMA (05/20/2019 12:41 PM PDT) + [...] | + + + + + | [facility] | [address] | [place] [address] | | | SERVICES, CORE | PARK [...] [facility] | [address] | [place] [address] | | | SERVICES, CORE | PARK [...] + + + + + | [facility] | [address] | [place] [address] | | | SERVICES, CORE | [address] | | | + + + + + documented in this encounter Visit Diagnoses + + | Diagnosis | + + | 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
--- OUTSIDE RECORDS SUMMARY | ~2019-11-23 | XMS | Encounter Summary ---
Demographics + + + | Address | [address] | | | [place] [address] | + + + | Home Phone [...] Team Providers + +------+ + | Care Pottery Decorator Name | Role | Phone | + [...] | Oncology at [facility] | [address] [place], | | | | | [address] | [place] [address] | | | | | Mailcode: [place] | | | | | | for Health and | | | | | | [facility], [facility] [address] | | | | | | [place], [place] | | | | | | [address] | | | | | | [phone] | | | +--------+ + + + [...] & remote memory intact and discharged with family/chair car driver, amb ulatory and instructions have been provided. [...] | | 06/17/19 at 1315, Pt ID: [id number], | | | | | | | Administer using a 0.2 micron | | | | | | | filter. Flush line with 15-20 mL | | | | | | | of normal saline. For | | | | | | | investigational use only, HIGH | | | | | | | ALERT MEDICATION IRB:[id number], | | | | | | | Protocol:[id number], Infuse using | | | | | | | 0.2 micron filter., | | | | | | + +---------+ +--------+-------+------+ +---+---+ | | | +---+---+ documented in this encounter"
--- OUTSIDE RECORDS SUMMARY | ~2019-11-23 | XMS | Encounter Summary ---
Demographics + + + | Address | [address] | | | [place] [address] | + + + | Home Phone | | + + + | Preferred Language | Unknown | + + + | Marital Status | | + + + | Mandaeism Affiliation | CAT | + + + | Race | White | + + + | Ethnic Group | Not or | + + + Author + + + | Author | [facility] | + + + | Organization | [facility] | + + + | [...] Team Providers + +------+ + | Care Garment Form Assembler Name | Role | Phone | [...] + + + + | 04/10/ | Hospital | [facility] [address] | Eleonora Ybarra, | | | 2017 | Encounter | [address] | [address] | | | | | [id number] | [place], [place] | | | | | Kaitlin [place], | [address] | | | | | [place] [address] | [phone] | | | | | [phone] | | | +--------+ + + + [...] + + + | Blood Pressure | 121/83 | 04/10/2018 1:05 PM | | | | | PDT | | + + + + + | Pulse | 51 | 04/10/2018 1:05 PM | | | | | PDT | | + + + + + | Temperature | 37.1 C (98.7 F) | 04/10/2018 1:05 PM | | | | | PDT | | + + + + + | Respiratory Rate | 16 | 04/10/2018 1:05 PM | | | | | PDT | | + + + + + | Oxygen Saturation | 96% | 04/10/2018 1:05 PM | | | | | PDT | | + + + + + | Inhaled Oxygen | - | - | | | Concentration | | | | + + + + + | Weight | 74 kg (163 lb 2.3 | 04/10/2018 6:00 AM | | | | oz) | PDT | | + + + + + | Height | 170.2 cm (5' 7.01") | 04/10/2018 6:00 AM | | | | | PDT | | + + + + + | Body Mass Index | 25.55 | 04/10/2018 6:00 AM | | | | | PDT | | + + + + + documented in this encounter Discharge Instructions Instructions Maritza Leal RN - 04/10/2018General Discharge Instructions for Same-Day Procedure Patients: ? Remember that you are under the influence of medications. Do not stay alone. A responsible person should be with you. Do not drive, drink alcohol or make important personal or business decisions for 24 hour s. ? Resume normal activity and return to work when advised by your Doctor. Pain Management: Your last oral pain medication was given at: 1045 ? Please follow your Doctor s instructions on the medication bottle. ? Do not take pain medication on an empty stomach, as this may cause nausea and vomiting. ? Do not drive or drink alcohol while on opioid pain medication. ? If pain is not relieved or increases despite following these instructions, please call yo ur Doctor. Diet: ? If you do not experience nausea or vomiting resume your regular diet. Eat lightly and av oid large, high fat or highly spiced meals for 24-48 hours. ? Constipation can be a side effect of opioid pain medication. Take stool softeners, incre ase dietary fiber and drink plenty of water to prevent this. Wound/Dressing/Drain Care: ? Call your Doctor if there is excessive bleeding, redness, swelling or drainage at the ope rative site. Urination: ? Please contact your Doctor or proceed to the nearest Emergency Room if you have not urina epifanio/voided in 8 hours after discharge. IV Site Care Instructions: ? Monitor IV site for pain, redness, swelling and/or drainage. If present, call your Docto r immediately. ? Minor redness and/or tenderness may be treated with warm, moist compresses for 24-48 hour s. If the area is still red and/or tender after this, notify your Doctor. Call your Doctor if you experience: ? Persistent nausea or vomiting. ? Fever ?101F or chills. ? Increased or uncontrolled pain despite taking pain medications. Call 911 if you experience difficulty breathing or unusual shortness of breath. documented in this encounter Medications at Time of Discharge [...] + | PROCEDURE NOTE | Routin | 04/10/2018 | | Results for this | | | e | 10:46 AM | | procedure are in the | | | | PDT | | results section. | + +--------+ + + + | SURGICAL PATHOLOGY | Routin | 04/10/2018 | | Results for this | | | e | 8:51 AM | | procedure are in the | | | | PDT | | results section. | + +--------+ + + + | NON EQUINE SCIENCE INSTRUCTOR CYTOLOGY | Routin | 04/10/2018 | | Results for this | | | e | 8:32 AM | | procedure are in the | | | | PDT | | results section. | + +--------+ + + + | ESOPHAGOGASTRODUODEN | Electi | 04/10/2018 | ESOPHAGOGASTRIC | | | OSCOPY | ve | 7:29 AM | [facility] | | | | Surgic | PDT | | | | | al | | | | + +--------+ + + + +---+--------+ | | | | | Specia | | | l | | | Needs | | | | | | OVERNI | | | GHT | | | DAYPAT | | | IENT | +---+--------+ + +--------+ + +---+ | DIAGNOSTIC | Electi | 04/10/2018 | ESOPHAGOGASTRIC | | | LAPAROSCOPY WITH | ve | 7:29 AM | [facility] | | | BIOPSY | Surgic | PDT | | | | | al | | | | + +--------+ + +---+ +---+--------+ | | | | | Specia | | | l | | | Needs | | | | | | OVERNI | | | GHT | | | DAYPAT | | | IENT | +---+--------+ + +--------+ +---+ + | INTRAPROCEDURE | Routin | 04/10/2018 | | Results for this | | IMAGING | e | 6:49 AM | | procedure are in the | | | | PDT | | results section. | + +--------+ +---+ + | CARDIOLOGY | | 04/10/2018 | | Results for this | | | | 12:00 AM | | procedure are in the | | | | PDT | | results section. | + +--------+ +---+ + documented in this encounter Results PROCEDURE NOTE (04/10/2018 10:46 AM PDT) + + + | Narrative | Performed At | + + + | Eleonora Ybarra MD 04/10/2018 11:18 AM [facility] | | | Department of Surgery Operative Note Author: Rand Wallace MD | | | MIS Fellow ID: Jacob Sapp Date of the | | | Procedure: 04/10/2018 Preoperative Diagnosis: esophageal cancer | | | [id number] Postoperative Diagnosis: same Procedure: 1. | | | Diagnostic laparoscopy 2. Intraabdominal washings 3. Jejunostomy | | | tube exchange 4. EGD Surgeon Eleonora Ybarra MD | | | Cash Posting Clerk(s): Rand Wallace MD Indication: A 67 y.o. male patient | | | presenting with distal esophageal adenocarcinoma staged as [id number] | | | s/p neoadjuvant therapy with a questionable involvement of the | | | lesser curvature of the stomach and possible compromise of the | | | stomach to be used as a gastric conduit during esophagectomy. | | | Therefore he was indicated for the above procedures. Procedure | | | Technique: After obtaining informed consent, the patient was | | | correctly identified and taken to the operating room and placed on | | | the table in the supine position. SCDs were placed prior to | | | induction of general anesthesia. Any safety precautions were | | | addressed. After induction of anesthesia, the patient | | | | | | s abdomen was prepped and draped in the usual sterile fashion. | | | Preoperative pause was taken to identify the patient, procedure | | | being performed, confirm that all necessary personnel and equipment | | | were present and accounted for, the patient received appropriate | | | perioperative antibiotics. Pneumoperitoneum of 15 mmHg pressure | | | was established via Veress needle technique at Henley's point. Once | | | pneumoperitoneum was established a 5mm port was placed just above | | | the umbilicus with the optiview. We then proceed to perform a | | | diagnostic laparoscopy and, aside from some adhesions in the RLQ | | | from a prior appendectomy and RUQ from a prior open cholecystectomy | | | there were no signs of metastatic disease in the abdominal cavity. | | | There was some bulking nodes noted at the GEJ just under the pars | | | flaccida. A second 5mm port was placed in left subcostal region under | | | direct vision. We then proceeded to perform intraabdominal | | | washing which was done with 1L of normal saline. We irrigated the | | | upper abdomen copiously and the patient's abdomen was gentle | | | massaged to distribute saline for collection. The fluid was | | | suctioned completely and sent to cytology. We now proceeded to | | | perform an EGD. There was some mucosal changesin the esophagus noted | | | at 35cm form the incisors. The area was slightly friable, no signs | | | of involvement of the stomach. Biopsies of the mid/upper gastric | | | lesser curve were obtained for pathology. Once this was done we | | | proceeded to place a new feeding jejunostomy tube (the prior one | | | was removed before the abdomen's prepping. It was inserted under | | | direct visualization without difficulties after being trimmed to | | | size. The balloon was insufflated intraluminally with 1ml of saline | | | water. The tube was then secured to the skin using 2-0 nylon. | | | Pneumoperitoneum was removed and all ports were removed under direct | | | visualization. All incisions were closed using 4-0 Biosyn and | | | then sealed using tissue adhesive. The surgical procedure was | | | terminated. Anesthesia: general Complications: none apparent | | | Findings: aside from some adhesions in the RLQ from a prior | | | appendectomy and RUQ from a prior open cholecystectomy there were no | | | signs of metastatic disease in the abdominal cavity. There was some | | | bulking nodes noted at the GEJ just under the pars flaccida. Good | | | response to chemoradiation noted on EGD of GEJ mass - friable | | | nodule. Several pictures taken from EGD and diagnostic laparoscopy. | | | Estimated Blood Loss (EBL): minimal (<25ml) Fluids: | | | crystalloids 1L Specimens: Gastric biopsies x 2. Abdominal | | | washings for cytology Drains: none The patient tolerated the | | | procedure well, was extubated and taken to and transferred to the | | | recovery room in good condition. Eleonora Ybarra MD, was | | | present and scrubbed for the entire operation. RAND Woods | | | MIRACLE FERRARI MD General Surgery Resident [facility] | | | [facility] Pager [phone] I was present for the entire | | | procedure on 04/10/18 as described in the note for this encounter. | | | Eleonora Ybarra MD [facility] [address] | | | [id number] [place] [id number] | | + + + SURGICAL PATHOLOGY (04/10/2018 8:51 AM PDT) + + + + + + | Component | Value | Ref Range | Performed | Pathologist | | | | | At | Signature | + + + + + + | Clinical | ESOPHAGOGASTRIC JUNCTION | | [facility] | | | History | CANCER | | DEPARTMENT | | | | | | OF | | | | | | PATHOLOGY | | + + + + + + | Final | Stomach, lesser curve, | | [facility] | Electronically | | Pathologic | biopsy:- Fundic gland | | DEPARTMENT | signed by Obie | | Diagnosis | polyp- Negative for | | OF | Luis Enrique Gonzales, | | | carcinomaCase seen | | PATHOLOGY | ,PhD on | | | by:Pamela Camara MD, PhD | | | 04/12/2018 at | | | | | | 11:42 AM | | | Surgical Pathology | | | | | | Idalia Gonzales MD | | | | | | PhD / Pathologist My | | | | | [...] + + + | Gross | Received in saline is a | | [facility] | | | Description | single specimen in a | | DEPARTMENT | | | | container labeled with | | OF | | | | the patient's name | | PATHOLOGY | | | | (initials CS) and | | | | | | medical record number | | | | | | [id number]. Stomach, | | | | | | Lesser Curve: Received | | | | | | labeled "B-stomach | | | | | | lesser curve" are 2 | | | | | | pieces of oropeza-pink soft | | | | | | tissue measuring 0.7 x | | | | | | 0.4 x 0.2 cm in | | | | | | aggregate. Also received | | | | | | are what appears to be | | | | | | fragments of foreign | | | | | | white matter. The | | | | | | specimen is entirely | | | | | | submitted in cassette | | | | | | A1.(LN) | | | | + + + + + + + + | Specimen | + + | Tissue - Stomach | | structure (body | | structure) | + + + + + + + | Performing | Address | City/State/Zipcode | Phone Number | | Organization | | | | + + + + + | [facility] | [address] | [place] [address] | | | PATHOLOGY | [address] | | | + + + + + NON EQUINE SCIENCE INSTRUCTOR CYTOLOGY (04/10/2018 8:32 AM PDT) + + + + + + | Component | Value | Ref Range | Performed | Pathologist | | | | | At | Signature | + + + + + + | Clinical | 67 yo male with | | [facility] | | | History | esophageal junction | | DEPARTMENT | | | | cancer. | | OF | | | | | | PATHOLOGY | | + + + + + + | Final | A. Abdominal fluid | | [facility] | Electronically | | Pathologic | cytology: - Negative for | | DEPARTMENT | signed by Tio | | Diagnosis | malignancy - Please see | | OF | A MD Priyanka on | | | commentComment: | | PATHOLOGY | 04/15/2018 at | | | Cytologically bland | | | 3:22 PM | | | mesothelial cells | | | | | | present. Case seen | | | | | | by:Stefani Marion, | | | | | | SCT(ASCP) - | | | | | | CytotechnologistElizabet | | | | | | h MD Nestor | | | | | | | | | | | | Cytopathology | | | | | | FellowDadavid Mathew MD | | | | | | [...] + + + + + + | Microscopic | Adequacy: Satisfactory | | [facility] | | | Details | for evaluation. | | DEPARTMENT | | | | | | OF | | | | | | PATHOLOGY | | + + + + + + | Gross | a. Received is 750 mL of | | [facility] | | | Description | slightly cloudy blood | | DEPARTMENT | | | | tinged fluid for | | OF | | | | cytologic evaluation. | | PATHOLOGY | | | | One [employer] slide | | | | | | prepared. A cell block | | | | | | was prepared and | | | | | | examined. | | | | + + + + + + + + | Specimen | + + | Fluid - Ectopic | | ureter (disorder) | + + + + + + + | Performing | Address | City/State/Zipcode | Phone Number | | Organization | | | | + + + + + | [facility] | [address] | [place] [address] | | | PATHOLOGY | [address] | | | + + + + + INTRAPROCEDURE IMAGING (04/10/2018 6:49 AM PDT) + + | Specimen | + + | | + + + + + | Narrative | Performed At | + + + | See admission or procedure notes for details of any intraprocedure | | | images obtained. | | + + + CARDIOLOGY (04/10/2018 12:00 AM PDT) + + + | Narrative | Performed At | + + + | | | + + + documented in this encounter Visit Diagnoses + + | Diagnosis | + + | Malignant neoplasm of lower third of esophagus (HCC) - Primary Malignant neoplasm of | | lower third of esophagus | + + | Gastroesophageal cancer (HCC) Malignant neoplasm of cardia | + + | Feeding tube dysfunction, initial encounter | + + documented in this encounter Administered Medications + +--------+ +--------+------+------+ | Medication Order | MAR | Action | Dose | Rate | Site | | | Action | Date | | | | + +--------+ +--------+------+------+ | HYDROmorphone (DILAUDID) | Given | 04/10/20 | 0.2 mg | | | | injection 0.2-0.5 mg 0.2-0.5 mg, | | 18 10:04 | | | | | intravenous, POSTPROCEDURE PRN, | | AM PDT | | | | | Starting Sun04/10/18 at 0819, | | | | | | | Until Sun04/10/18 at 1040, | | | | | | | moderate pain while in Phase I | | | | | | | Recovery | | | | | | + +--------+ +--------+------+------+ +---+---+ | | | +---+---+ + +-------+ +------+---+---+ | oxyCODONE (immediate release) | Given | 04/10/20 | 5 mg | | | | (ROXICODONE) tablet 5-10 mg 5-10 | | 18 10:45 | | | | | mg, oral, EVERY 4 HOURS | | AM PDT | | | | | NEEDED, Starting Sun04/10/18 at | | | | | | | 1039, Until Sun04/10/18 at 2103, | | | | | | | severe pain | | | | | | + +-------+ +------+---+---+ + +---+ | | | + +---+ | oxyCODONE (immediate release) | | | (ROXICODONE) tablet 1 dose, | | | Starting Sun04/10/18 at 1044, | | | Until Sun04/10/18 at 1045 | | + +---+ | | | + +---+ documented in this encounter
--- OUTSIDE RECORDS SUMMARY | ~2019-11-23 | XMS | Encounter Summary ---
Demographics + + + | Address | [address] | | | [place] [address] | + + + | Home Phone [...] | + + +---------+ + | Mauricio aSpp | ECON | Unknown | | + + +---------+ + | Flower Sapp | ECON | Unknown | | + + +---------+ + Care Team Providers + +------+ + | Care Mixing Technician Name | Role | Phone | [...] | [address] | [address] [facility] | | | | | lower third | [facility] | [facility] | | | | | of esophagus | [facility] | Rd | | | | | Esophagus | Road | [facility] [place] | | | | | Ca | [facility] [place] | [address] | | | | | Procedures | [address] | Phone: | | | | | Consult, | Phone: | [phone] | | | | | Sage Wilkins | [phone] | Fax: | | | | | | Fax: | [phone] | | | | | | [phone] | | +--------+--------+ + + + + Encounter Details +--------+ + + + + | Date | Type | Department | Care Team | Description | +--------+ + + + + | 01/04/ | Hospital | Radiation Oncology | | | | 2018 | Encounter | at [facility] [address] | | | | | | [place] | | | | | | [id number] [facility] | | | | | | [facility] [place], | | | | | | [place] [address] | | | | | | [phone] | | | +--------+ + + + [...]
--- OUTSIDE RECORDS SUMMARY | ~2019-11-23 | XMS | Encounter Summary ---
Demographics + + + | Address | [address] | | | [place] [address] | + + + | Home Phone | | + + + | Preferred Language | Unknown | + + + | Marital Status | | + + + | Adventist Affiliation | CAT | + + + [...] Team Providers + +------+ + | Care Linotype Machinist Name | Role | Phone | + [...] + + + + | 04/10/ | Anesthesia | 6A Intra Op 3181 | Tino Mariscal MD | | | 2018 | Event | [address] | [address] | | | | | [facility] | [facility], | | | | | Hospital Admitting | [place] [address] | | | | | Desk Located on the | [phone] | | | | | 9th floor | | | | | | [place], [place] | Adama Morin MD | | | | | [address] | [address] | | | | | | [facility] | | | | | | [place] [address] | | | | | | [phone] | | | | | | | | +--------+ + + + + Anesthesia Record + + + + + | Procedure Name | Responsible | Anesthesia Start | Anesthesia Stop Time | | | Anesthesiologist | Time | | + + + + + | DIAGNOSTIC | Tino Mariscal MD | 04/10/18724 | 04/10/18923 | | LAPAROSCOPPY WITH | | | | | WASHINGS, (N/A | | | | | Abdomen) | | | | + + + + + +----+---+ + + | Da | T | Event | Comment | | te | i | | | | | m | | | | | e | | | +----+---+ + + | 05 | 0 | | | | /1 | 7 | | | | 6/ | 1 | | | | 20 | 6 | | | | 18 | | | | +----+---+ + + | | 0 | Pt. Check | Prior to anesthesia start, pt. Identified, examined, chart | | | 7 | | reviewed, PARQ held, anesthetic plan made or approved by | | | 1 | | attending anesthesiologist. NPO status confirmed as appropriate | | | 6 | | for procedure Preoperative evaluation: unchanged | +----+---+ + + | | 0 | An Start | | | | 7 | | | | | 2 | | | | | 5 | | | +----+---+ + + | | 0 | Eq Check | Anesthesia machine checked Equipment verified | | | 7 | | | | | 3 | | | | | 0 | | | +----+---+ + + | | 0 | An Start | | | | 7 | Data | | | | 3 | | | | | 0 | | | +----+---+ + + | | 0 | Vitals | Monitors applied Vital signs checked Patient ready for anesthesia | | | 7 | Checked | | | | 3 | | | | | 4 | | | +----+---+ + + | | 0 | ETT | | | | 7 | | | | | 4 | | | | | 7 | | | +----+---+ + + | | 0 | Ready | | | | 7 | | | | | 4 | | | | | 8 | | | +----+---+ + + | | 0 | Abx | | | | 8 | Administere | | | | 1 | d | | | | 2 | | | +----+---+ + + | | 0 | Timeout | | | | 8 | | | | | 1 | | | | | 9 | | | +----+---+ + + | | 0 | Incision | | | | 8 | | | | | 2 | | | | | 2 | | | +----+---+ + + | | 0 | Quick Note | insufflation | | | 8 | | | | | 2 | | | | | 3 | | | +----+---+ + + | | 0 | Local | | | | 9 | Anesthetic | | | | 0 | by Surgeon | | | | 4 | | | +----+---+ + + | | 0 | Surgery end | | | | 9 | | | | | 0 | | | | | 9 | | | +----+---+ + + | | 0 | An Extubate | Neuromuscular function Intact. Pharynx suctioned. Patient obeys | | | 9 | | commands. Adequate pulmonary mechanics. | | | 1 | | | | | 1 | | | +----+---+ + + | | 0 | an stop | | | | 9 | data | | | | 1 | | | | | 5 | | | +----+---+ + + | | 0 | PACU Rpt | | | | 9 | Given | | | | 2 | | | | | 4 | | | +----+---+ + + | | 0 | Anesthesia | | | | 9 | End | | | | 2 | | | | | 4 | | | +----+---+ + + +------+ | Meds | +------+ + + + | Name | Total | + + + | ceFAZolin (ANCEF) injection 1 g | 2 g | + + + | propofol | 130 mg | + + + | fentaNYL | 150 mcg | + + + | lidocaine 2% | 70 mg | + + + | rocuronium | 60 mg | + + + | ePHEDrine | 15 mg | + + + | glycopyrrolate | 1 mg | + + + | nitroGLYCERIN | 160 mcg | + + + | nitroGLYCERIN INF (50mg/250mL) | 370 mcg | + + + | neostigmine | 5 mg | + + + | sugammadex | 200 mg | + + + | lactated Ringers IV | 1,000 mL | + + + + + | Name | + + | Insp Sevo | + + | Et Sevo | + + | EtN2O % | + + | Insp N2O % | + + + + | No blood administrations on file. | + + +--------+ + + + | Type | Details | Placement | Removal | +--------+ + + + | Feedin | 04/10/18; 833; Eleonora Ybarra | 04/10/18833 by | | | g Tube | MD; J-tube; Abdomen UL; 12 | Gurinder Tipton RN | | | | (David); (per Red surgery) | | | +--------+ + + + | Periph | 04/10/18; 0708; Right; Hand; 20 | 04/10/18 0708 by | 04/10/18 1145 by | | eral | g; 04/10/18; 1145; Per protocol | Rosanna Andre RN | Maritza Leal, | | IV | | | RN | +--------+ + + + | Periph | 04/10/18; 0752; MD rosa; Left; | 04/10/18 0752 by | 04/10/18 1449 by | | eral | Hand; 18 g; None; No; Positive; | Jose Paige | Maria T Michael RN | | IV | 04/10/18; 1449 | MD Rosa | | +--------+ + + + | Incisi | 04/10/18; 0832; Midline; abdomen; | 04/10/18 0832 by | 05/14/18922 by | | on | 05/14/18; 922 | Gurinder Tipton RN | Rufino Cavanaugh RN | +--------+ + + + | Incisi | 04/10/18; 32; Left; Upper; | 04/10/18831 by | 05/14/18922 by | | on | abdomen; 05/14/18; 922 | Gurinder Tipton RN | Rufino Cavanaugh RN | +--------+ + + + documented in this encounter Social History + +-------+ +--------+ + | [...] | + +--------+ + + + | ANE ETT | Routin | 04/10/2018 | | Results for this | | | e | 3:13 PM | | procedure are in the | | | | PDT | | results section. | + +--------+ + + + documented in this encounter Results ANE ETT (04/10/2018 3:13 PM PDT) + + + | Narrative | Performed At | + + + | Jose Lee MD 04/10/2018 8:15 AM Procedure | | | Reason for Intubation: For surgical procedure, Location Performed: [place] | | | , Patient was preoxygenated Mask Ventilation Grade 2 - Ventilated | | | by mask with oral airway/adjuvant Intubation Blade type: | | | Yanelis , Blade size: 4, Atraumatic laryngoscopy: Atraumatic | | | Laryngoscopy, Intubation adjuncts: N/A , Laryngoscopic view: Grade II, | | | Fiberoptics used: N/A , Number of Attempts: 1, Positive for EtCO2: | | | Yes, Breath sounds: Bilateral and equal ETT Ett Adult: | | | Single-lumen cuffed ETT Size: 7.5 ETT secured with: adhesive tape | | | Depth at Lip: 24 Cm Airway leak: Yes Narrative Attending | | | physically present Performed by Resident | | + + + documented in this encounter Visit Diagnoses Not on filedocumented in this encounter Administered Medications + +--------+ +------+------+------+ | Medication Order | MAR | Action | Dose | Rate | Site | | | Action | Date | | | | + +--------+ +------+------+------+ | ceFAZolin (ANCEF) injection 1 g | Given | 04/10/20 | 2 g | | | | 1 g, intravenous, PREPROCEDURE | | 18 8:12 | | | | | ONCE, 1 dose, Starting Wed | | AM PDT | | | | | 04/10/18 at 0649, Until Wed | | | | | | | 04/10/18 at 0812 | | | | | | + +--------+ +------+------+------+ +---+---+ | | | +---+---+ + +-------+ +------+---+---+ | ePHEDrine injection | Given | 04/10/20 | 5 mg | | | | intravenous, INTRAPROCEDURE PRN, | | 18 8:50 | | | | | Starting 04/10/18 at 0741, | | AM PDT | | | | | Until Sun04/10/18 at 15 | | | | | | + +-------+ +------+---+---+ +-------+ +-------+---+---+ | Given | 04/10/20 | 10 mg | | | | | 18 7:41 | | | | | | AM PDT | | | | +-------+ +-------+---+---+ +---+---+ | | | +---+---+ + +-------+ +--------+---+---+ | fentaNYL citrate (PF) | Given | 04/10/20 | 50 mcg | | | | (SUBLIMAZE) injection | | 18 8:25 | | | | | INTRAPROCEDURE PRN, Starting Wed | | AM PDT | | | | | 04/10/18 at 0736, Until Wed | | | | | | | 04/10/18 at 0915 | | | | | | + +-------+ +--------+---+---+ +-------+ +---------+---+---+ | Given | 04/10/20 | 100 mcg | | | | | 18 7:36 | | | | | | AM PDT | | | | +-------+ +---------+---+---+ +---+---+ | | | +---+---+ + +-------+ +--------+---+---+ | glycopyrrolate (PANTERA) | Given | 04/10/20 | 0.8 mg | | | | injection INTRAPROCEDURE PRN, | | 18 9:07 | | | | | Starting 04/10/18 at 0821, | | AM PDT | | | | | Until 04/10/18 at 0915 | | | | | | + +-------+ +--------+---+---+ +-------+ +--------+---+---+ | Given | 04/10/20 | 0.2 mg | | | | | 18 8:21 | | | | | | AM PDT | | | | +-------+ +--------+---+---+ +---+---+ | | | +---+---+ + +---------+ +---+---+---+ | lactated Ringers IV 10 mL/hr, | New Bag | 04/10/20 | | | | | intravenous, PROCEDURE | | 18 9:00 | | | | | CONTINUOUS, Starting Sun04/10/18 | | AM PDT | | | | | at 0700, Until Sun04/10/18 at | | | | | | | 1040 | | | | | | + +---------+ +---+---+---+ + + +---+---+---+ | given by anesthesiology | 04/10/20 | | | | | | 18 8:55 | | | | | | AM PDT | | | | + + +---+---+---+ | New Bag | 04/10/20 | | | | | | 18 7:25 | | | | | | AM PDT | | | | + + +---+---+---+ +---+---+ | | | +---+---+ + +-------+ +-------+---+---+ | lidocaine (XYLOCAINE MPF) 2 % | Given | 04/10/20 | 70 mg | | | | (20 mg/mL) injection | | 18 7:36 | | | | | INTRAPROCEDURE PRN, Starting Wed | | AM PDT | | | | | 04/10/18 at 0736, Until Wed | | | | | | | 04/10/18 at 0915 | | | | | | + +-------+ +-------+---+---+ +---+---+ | | | +---+---+ + +-------+ +------+---+---+ | neostigmine (PROSTIGMIN) | Given | 04/10/20 | 5 mg | | | | injection intravenous, | | 18 9:07 | | | | | INTRAPROCEDURE PRN, Starting Wed | | AM PDT | | | | | 04/10/18 at 0907, Until Wed | | | | | | | 04/10/18 at 0930 | | | | | | + +-------+ +------+---+---+ +---+---+ | | | +---+---+ + + + + +-------+---+ | nitroGLYCERIN 50 mg/250 mL (0.2 | Restarte | 04/10/20 | 0.2 | 4.44 | | | mg/mL) IV infusion (RTU) | d | 18 8:57 | mcg/kg/m | mL/hr | | | intravenous, INTRAPROCEDURE | | AM PDT | in | | | | CONTINUOUS PRN, Starting Wed | | | | | | | 04/10/18 at 0839, Until Wed | | | | | | | 04/10/18 at 0915 | | | | | | + + + + +-------+---+ +---------+ + +-------+---+ | New Bag | 04/10/20 | 0.4 | 8.88 | | | | 18 8:39 | mcg/kg/m | mL/hr | | | | AM PDT | in | | | +---------+ + +-------+---+ +---+---+ | | | +---+---+ + +-------+ +--------+---+---+ | nitroGLYCERIN injection | Given | 04/10/20 | 60 mcg | | | | intravenous, INTRAPROCEDURE PRN, | | 18 9:11 | | | | | Starting 04/10/18 at 0833, | | AM PDT | | | | | Until Sun04/10/18 at 0915 | | | | | | + +-------+ +--------+---+---+ +-------+ +--------+---+---+ | Given | 04/10/20 | 60 mcg | | | | | 18 8:37 | | | | | | AM PDT | | | | +-------+ +--------+---+---+ | Given | 04/10/20 | 40 mcg | | | | | 18 8:33 | | | | | | AM PDT | | | | +-------+ +--------+---+---+ +---+---+ | | | +---+---+ + +-------+ +-------+---+---+ | propofol INTRAPROCEDURE PRN, | Given | 04/10/20 | 50 mg | | | | Starting Sun04/10/18 at 0740, | | 18 7:41 | | | | | Until Sun04/10/18 at 0915 | | AM PDT | | | | + +-------+ +-------+---+---+ +-------+ +-------+---+---+ | Given | 04/10/20 | 80 mg | | | | | 18 7:40 | | | | | | AM PDT | | | | +-------+ +-------+---+---+ +---+---+ | | | +---+---+ + +-------+ +-------+---+---+ | rocuronium (ZEMURON) injection | Given | 04/10/20 | 20 mg | | | | INTRAPROCEDURE PRN, Starting Wed | | 18 8:37 | | | | | 04/10/18 at 0741, Until Wed | | AM PDT | | | | | 04/10/18 at 0915 | | | | | | + +-------+ +-------+---+---+ +-------+ +-------+---+---+ | Given | 04/10/20 | 40 mg | | | | | 18 7:41 | | | | | | AM PDT | | | | +-------+ +-------+---+---+ +---+---+ | | | +---+---+ + +-------+ +--------+---+---+ | sugammadex (BRIDION) IV | Given | 04/10/20 | 200 mg | | | | INTRAPROCEDURE PRN, Starting Wed | | 18 9:09 | | | | | 04/10/18 at 0909, Until Wed | | AM PDT | | | | | 04/10/18 at 0931 | | | | | | + +-------+ +--------+---+---+ +---+---+ | | | +---+---+ documented in this encounter"
--- OUTSIDE RECORDS SUMMARY | ~2019-11-23 | XMS | Encounter Summary ---
Demographics + + + | Address | [address] | | | [place] [address] | + + + | Home Phone | | + + + | Preferred Language | Unknown | + + + | Marital Status | | + + + | Jewish Affiliation | CAT | + + + | Race | White | + + + | Ethnic Group | Not or | + + + Author + + + | Author | [facility] | + + + | Organization | [facility] | + + + | Address [...] Team Providers + +------+ + | Care Hatch Supervisor Name | Role | Phone | + +------+ + | Christos Olivarez MD | PCP | | + +------+ + Encounter Details +--------+------+ + + + | Date | Type | Department | Care Team | Description | +--------+------+ + + + | 08/21/ | Lab | Laboratory at [facility] | | Malignant neoplasm | | 2018 | | [address] | | of lower third of | | | | [place], [place] | | esophagus (HCC) | | | | [address] | | | | | | [phone] | | | +--------+------+ + + + [...] | + + + + + | [facility] | [address] | [place] [address] | | | SERVICES, [place] [facility] | | | | | HEALTH [...] | | | LABORATORY | | | [facility] | | | SERVICES, | | | [...] | + + + + + | [facility] | [address] | [place] [address] | | | SERVICES, CORE | PARK [...] [facility] | [address] | [place] [address] | | | [place] [place] | [address] [...] [facility] | [address] | [place] [address] | | | SERVICES, CORE | PARK [...] | + + + + + | [facility] | [address] | [place] [address] | | | SERVICES, CORE | [address]LEY [...] + + + | [facility] | [address] | [place] [address] | | | DIAGNOSTIC | [address] [...] [facility] | [address] | [place] [address] | | | SERVICESJUSTIN | [address] [...] | + + + + + | [facility] | [address] | [place] [address] | | | SERVICES, CORE | PARK [...] | | | this test in the [facility] | | | | | | Laboratory Test | | | | | | Directory | | | | | | ([email or web address]).Performed | | | | | | by [employer],[address] | | | | | | [address], [facility] | | | | | | [address] | | | | | | [phone]. | | | | | | blue [...] [facility] | [address] | [place], [place] | | | [facility] | | [address] | | + + + + + [...] | + + + + + | [facility] | [address] [facility] [address] | [place] [address] | | | SERVICES, CORE | [address] [...] | [facility] | | | GRAVITY | Sedalia performed by | | LABORATORY | | [...] | + + + + + | [facility] | [address] | [place] [address] | | | SERVICES, CORE | [address] [...] | + + + + + | [facility] | [address] | [place] [address] | | | SERVICES, CORE | [address] | | | + + + + + documented in this encounter Visit Diagnoses + + | Diagnosis | + + | Malignant neoplasm of lower third of esophagus (HCC) Malignant neoplasm of lower | | third of esophagus | + + documented in this encounter"
--- OUTSIDE RECORDS SUMMARY | ~2019-11-23 | XMS | Encounter Summary ---
Demographics + + + | Address | [address] | | | [place] [address] | + + + | Home Phone [...] Team Providers + +------+ + | Care Flatwork Catcher Name | Role | Phone | + +------+ + | Christos Olivarez MD | PCP | | + +------+ + Encounter Details +--------+--------+ + + + | Date | Type | Department | Care Team | Description | +--------+--------+ + + + | 08/15/ | Travel | | | | | [...]
--- OUTSIDE RECORDS SUMMARY | ~2019-11-23 | XMS | Encounter Summary ---
Demographics + + + | Address | [address] | | | [place] [address] | + + + | Home Phone [...] Team Providers + +------+ + | Care Domestic Laundry Worker Name | Role | Phone | + +------+ + | Christos Olivarez MD | PCP | | + +------+ + Reason for Visit + + + | Reason | Comments | + + + | Lab Draw | | + + + Other (Routine) +--------+---------+ [...] | | | | | Procedures | [place], [place] | Health and | | | | | [place] | [address] | Healing, | | | | | SERVICES | Phone: | [address] | | | | | PROVIDED | [phone] | [place], [place] | | | | | PART OF [place] | Fax: | [address] | | | | | INJ | [phone] | Phone: | | | | | [facility] [address] | | [phone] | | | | | MG Study | | Fax: | | | | | IRB: [id number] | | [phone] | | | | | Study Title: [...] + + + + | 03/19/ | Clinical | Laboratory at [facility] | | Lab Draw | | 2019 | Support | [address] | | | | | Staff | [place], [place] | | | | | | [address] | | | | | | [phone] | | | +--------+ + + + [...] + documented as of this encounter Progress Rebecca Rojas RN - 03/19/2019 11:40 AM PDT22g PIV placed in patient's L AC. Labs drawn via PIV and sent to lab. Pt tolerated without incident. Pt discharged to provider visit. documented in this e ncounter Plan of Treatment Not on filedocumented as of this encounter Procedures + +--------+ + + + | Procedure Name | Priori | Date/Time | Associated Diagnosis | Comments | | | ty | | | | + +--------+ + + + | LIPASE, PLASMA | Routin | 03/19/2019 | Malignant neoplasm | Results for this | | | e | 11:30 AM | of lower third of | procedure are in the | | | | PDT | esophagus (HCC) | results section. | + +--------+ + + + | LDH TOTAL, PLASMA | Routin | 03/19/2019 | Malignant neoplasm | Results for this | | | e | 11:30 AM | of lower third of | procedure are in the | | | | PDT | esophagus (HCC) | results section. | + +--------+ + + + | AMYLASE, PLASMA | Routin | 03/19/2019 | Malignant neoplasm | Results for this | | | e | 11:30 AM | of lower third of | procedure are in the | | | | PDT | esophagus (HCC) | results section. | + +--------+ + + + | CBC AND AUTO DIFF - | Routin | 03/19/2019 | Malignant neoplasm | Results for this | | [facility] | e | 11:29 AM | of lower third of | procedure are in the | | | | PDT | esophagus (HCC) | results section. | + +--------+ + + + | COMPLETE METABOLIC | Routin | 03/19/2019 | Malignant neoplasm | Results for this | | PANEL - OLP | e | 11:29 AM | of lower third of | procedure are in the | | | | PDT | esophagus (HCC) | results section. | + +--------+ + + + | CBC WITH AUTO DIFF - | Routin | 03/19/2019 | Malignant neoplasm | Results for this | | OLP | e | 11:29 AM | of lower third of | procedure are in the | | | | PDT | esophagus (HCC) | results section. | + +--------+ + + + | NURSING | Routin | 03/19/2019 | Malignant neoplasm | | | COMMUNICATION #1 - | e | 11:29 AM | of lower third of | | | [place] | | PDT | esophagus (HCC) | | + +--------+ + + + | [facility] - COMPLETE | Routin | 03/19/2019 | Malignant neoplasm | Results for this | | METABOLIC SET | e | 11:29 AM | of lower third of | procedure are in the | | | | PDT | esophagus (HCC) | results section. | + +--------+ + + + documented in this encounter Results AMYLASE, PLASMA (03/19/2019 11:30 AM PDT) + +-------+ + + + | Component | Value | Ref Range | Performed | Pathologist | | | | | At | Signature | + +-------+ + + + | AMYLASE,KATHY | 38 | 25 - 115 U/L | [facility] [...] [facility] | [address] | [place] [address] | | | SERVICES, CORE | [address] | | | + + + + + LIPASE, PLASMA (03/19/2019 11:30 AM PDT) + +--------+ + + + | Component | Value | Ref Range | Performed | Pathologist | | | | | At | Signature | + +--------+ + + + | LIPASE | 74 (L) | 152 - 353 U/L | [...] [facility] | [address] | [place] [address] | | | SERVICES, CORE | [address] | | | + + + + + LDH TOTAL, PLASMA (03/19/2019 11:30 AM PDT) + +---------+ + + + | Component | Value | Ref Range | Performed | Pathologist | | | | | At | Signature | + +---------+ + + + | LD TOTAL, | 213 | <=250 U/L | [facility] | | [...] + + + | [facility] | [address] | [place] [address] | | | SERVICES, [facility] | | | | | [facility] + HEALING | | | | + + + + + CBC AND AUTO DIFF - [facility] (03/19/2019 11:29 AM PDT) + + + + + + | Component | Value | Ref Range | Performed | Pathologist | | | | | At | Signature | + + + + + + | WHITE CELL | 5.07 | 3.50 - 10.80 | [facility] | | | COUNT | | K/cu mm | LABORATORY | | | | | | SERVICES, | | | | | | [facility] + | | | | | | [facility]ALING | | + + + + + + | RED CELL | 3.07 (L) | 4.50 - 6.00 | [facility] [...] + + + + | HEMATOCRIT | 30.7 (L) | 41.0 - 53.0 % | [facility] | | | | | | LABORATORY | | | | | | SERVICES, | | | | | | [facility] | | [facility] + | | | | | | [facility]ALING | | + + + + + + | MCV | 100.0 | 80.0 - 100.0 fL | [facility] | | | | | | LABORATORY | | | | | | SERVICES, | | | | | | [facility] | [facility] + | | | | | | HEALING | | + + + + + + | MCHC | 33.9 | 32.0 - 36.0 | [facility] | | | | | g/dL | LABORATORY | | | | | | SERVICES, | | | | | | [facility] | [facility] + | | | | | | HEALING | | + + + + + + | RDW SD | 51.2 (H) | 35.1 - 46.3 fL | [facility] | | | | | | LABORATORY | | | | | | SERVICES, | | | | | | [facility] | [facility] | | [facility] + | | | | | | HEALING | | + + + + + + | PLATELET | 167 | 150 - 400 K/cu | [facility] [...] + + + + | NEUTROPHIL | 67.8 | 50.0 - 70.0 % | [facility] | | | % | | | LABORATORY | | | | | | SERVICES, | | | | | | [facility] | [facility] | | | | [facility] + | | | | | | HEALING | | + + + + + + | LYMPHOCYTE | 16.6 (L) | 18.0 - 42.0 % | [facility] | | | % | | | LABORATORY | | | | | | SERVICES, | | | | | | [facility] | | | [facility] + | | | | | | HEALING | | + + + + + + | MONOCYTE % | 8.7 | 3.5 - 9.0 % | [facility] | | | | | | LABORATORY | | | | | | SERVICES, | | | | | | [facility] | | | | [facility] + | | | | | | HEALING | | + + + + + + | EOS % | 5.5 (H) | 1.0 - 3.0 % | [facility] | | | | | | LABORATORY | | | | | | SERVICES, | | | | | | [facility] | | | [facility] + | | | | | | HEALING | | + + + + + + | BASO % | 1.0 | 0.0 - 2.0 % | [facility] | | | | | | LABORATORY | | | | | | SERVICES, | | | | | | [facility] | | | | [facility] + | | | | | | HEALING | | + + + + + + | IG% | 0.4Comment: Increased | 0.0 - 1.0 % | [...] + + + + | NEUTROPHIL | 3.44 | 1.80 - 7.70 | [facility] | | | # | | K/cu mm | LABORATORY | | | | | | SERVICES, | | | | | | [facility] | | | | | | [facility] + | | | | | | HEALING | | + + + + + + | NEUTROPHIL | 3.44Comment: Preliminary | 1.80 - 7.70 | [facility] [...] + + + | MONOCYTE # | 0.44 | 0.10 - 0.90 | [facility] | | | | | K/cu mm | LABORATORY | | | | | | SERVICES, | | | | | | [facility] | | | | | | [facility] + | | | | | | HEALING | | + + + + + + | EOS # | 0.28 | 0.00 - 0.50 | [facility] | | | | | K/cu mm | LABORATORY | | | | | | SERVICES, | | | | | | [facility] | | | | [facility] + | | | | | | HEALING | | + + + + + + | BASO # | 0.05 | 0.00 - 0.10 | [facility] | | | | | K/cu mm | LABORATORY | | | | | | SERVICES, | | | | | | [facility] | [facility] | [facility] | | [facility] + | | | | | | HEALING | | + + + + + + | IG# | 0.02 | 0.00 - 0.10 | [...] LABORATORY | [address] | [place] [address] | | | [facility], [facility] | | | | | HEALTH + HEALING | | | | + + + + + [facility] - COMPLETE METABOLIC SET (03/19/2019 11:29 AM PDT) + +---------+ + + + | Component | Value | Ref Range | Performed | Pathologist | | | | | At | Signature | + +---------+ + + + | GLUCOSE, | 93 | 70 - 99 mg/dL | [facility] | | | PLASMA | | | LABORATORY | | | (LAB) | | | SERVICES, | | | | | | [facility] | | | | [facility] + | | | | | | HEALING | | + +---------+ + + + | BUN, PLASMA | 10 | 6 - 20 mg/dL | [facility] | | | (LAB) | | | LABORATORY | | | | | | SERVICES, | | | | | | [facility] | | | | [facility] + | | | | | | HEALING | | + +---------+ + + + | CREATININE | 0.81 | 0.70 - 1.30 | [facility] | [...] | | | LABORATORY | | | NAMIBIAN | | | SERVICES, | | | [...] +---------+ + + + | POTASSIUM, | 3.7 [...] +---------+ + + + | TOTAL | 7.1 | 6.4 - 8.2 g/dL | [facility] | | | PROTEIN, | | | LABORATORY | | | PLASMA | | | SERVICES, | | | (LAB) | | | [facility] | | | | | | [facility] + | | | | | | HEALING | | + +---------+ + + + | ALBUMIN, | 3.3 (L) | 3.5 - 4.7 g/dL | [facility] | | | PLASMA | | | LABORATORY | | | (LAB) | | | SERVICES, | | | | | | [facility] | | | | | | [facility] + | | | | | | HEALING | | + +---------+ + + + | ALK PHOS | 107 | 56 - 119 U/L | [facility] | | | | | | LABORATORY | | | | | | SERVICES, | | | | | | [facility] | | | | | | [facility] + | | | | | | HEALING | | + +---------+ + + + | AST(SGOT) | 168 (H) | <=41 U/L | [facility] | | | | | | LABORATORY | | | | | | SERVICES, | | | | | | [facility] | | [facility] | | [facility] + | | | | | | HEALING | | + +---------+ + + + | ALT (SGPT) | 141 (H) | <=60 U/L | [facility] | [...] SERVICES, | | | | | | [facility] | | | | | | [...] Information: <60 mL/min/1.73 sq m | SERVICES, | | Chronic Kidney Disease <15 mL/min/1.73 sq m | [facility] | | Kidney Failure Estimated GFR greater than 60 mL/min/1.73 sq m is of | HEALTH + | | limited clinical value. The MDRD equation is not valid in the | HEALING | | following situations: - Patients under 18 years of age - Severe | | | malnutrition or obesity - Vegetarian diet - Rapidly changing kidney | | | function - Amputees, paraplegics, or other muscle-wasting diseses | | + + + + + + + + | Performing | Address | City/State/[facility] | Phone Number | | Organization | | | | + + + + + | [facility] | [address] | [place] [address] | | | SERVICES, [facility] | | | | | HEALTH [...]
--- OUTSIDE RECORDS SUMMARY | ~2019-11-23 | XMS | Encounter Summary ---
Demographics + + + | Address | [address] | | | [place] [address] | + + + | Home Phone [...] Team Providers + +------+ + | Care Box Icer Name | Role | Phone | + +------+ + | Luis Leiva DO | PCP | | + +------+ + Reason for Referral PROC - Inpatient Surgery (Routine) +--------+--------+ + + + + | Status | Reason | Specialty | Diagnoses / | Referred By | Referred To | | | | | Procedures | Contact | Contact | +--------+--------+ + + + + | Closed | | Surgery | Diagnoses | Wallace | Jules, | | | | | Esophageal | Garfield, | MD Juvenal | | | | | cancer, | Rand Woods MD | [address] | | | | | stage IIIA | [address] | [address] | | | | | ([facility]) [address] [address] | [address] [place], | | | | | = | [address] | [place] | | | | | laparoscopic | [place], [place] | [address] | | | | | Jejunostomy | [address] | Phone: | | | | | tube | | [phone] | | | | | exchange | | Fax: | | | | | Procedures | | [phone] | | | | | REQUEST TO | | | | | | | SURGERY | | | | | | | MEDICARE COMPLIANCE AUDITOR | | | | | | | [place] ESPHG | | | | | | | THRSC MOBLJ | | | | | | | [place] LAP | | | | | | | PYLOROMYTOMY | | | | | | | [place] ESOPH | | | | | | | LENGTHENING | | | | | | | [place] UNLISTED | | | | | | | PROCEDURE, | | | | | | | SMALL | | | | | | | INTESTINE | | | +--------+--------+ + + + + Reason for Visit + + + | Reason | Comments | + + + | Return Patient | | + + + Consultation (Urgent) + +--------+ + + + + | Status | Reason | Specialty | Diagnoses / | Referred By | Referred To | | | | | Procedures | Contact | Contact | + +--------+ + + + + | Authorized | | Surgery | Diagnoses | João, | Gs Foregut | | | | | Malignant | MD Daija | [facility] [address] | | | | | neoplasm of | [address] | | | | | lower third | [facility] | Mailcode: | | | | | of esophagus | Hospital | [facility] | | | | | | Road | Health and | | | | | | [place], [place] | Healing, | | | | | | [address] | [address] | | | | | | Phone: | [place], [place] | | | | | | [phone] | [address] | | | | | | Fax: | Phone: | | | | | | [phone] | [phone] | | | | | | | Fax: | | | | | | | [phone] | + +--------+ + + + + Encounter Details +--------+---------+ + + + | Date | Type | Department | Care Team | Description | +--------+---------+ + + + | 04/30/ | Office | [facility] | Juvenal Vicente MD | Esophageal cancer, | | 2018 | Visit | Center at [facility] [address] | [address] | stage IIIA (HCC) | | | [address] | [address] [place], (Primary Dx) | | | | Mailcode: [place] | [place] [address] | | | | | for Health and | [phone] | | | | | [facility] [address] | | | | | | [place], [place] | | | | | | [address] | | | | | | [phone] | | | +--------+---------+ + + + [...] + + + | Blood Pressure | 113/85 | 04/30/2018 10:58 AM | | | | | PDT | | + + + + + | Pulse | 79 | 04/30/2018 10:58 AM | | | | | PDT | | + + + + + | Temperature | 36.8 C (98.3 F) | 04/30/2018 10:58 AM | | | | | PDT | | + + + + + | Respiratory Rate | 16 | 04/30/2018 10:58 AM | | | | | PDT | | + + + + + | Oxygen Saturation | - | - | | + + + + + | Inhaled Oxygen | - | - | | | Concentration | | | | + + + + + | Weight | 74.3 kg (163 lb 14.4 | 04/30/2018 10:58 AM | | | | oz) | PDT | | + + + + + | Height | 170.2 cm (5' 7") | 04/30/2018 10:58 AM | | | | | PDT | | + + + + + | Body Mass Index | 25.67 | 04/30/2018 10:58 AM | | | | | PDT | | + + + + + documented in this encounter Patient Instructions Patient Instructions Evelyn Maddox RN - 04/30/2018 11:00 AM PDT [facility] General Surgery Office Toll-free: ext [phone] Surgery Date: TENTATIVE 05/14/18 Procedure: Minimally Invasive Esophagectomy Surgeon Name: Dr. Eleonora Ybarra, Dr. Juvenal Vicente, Dr. Antonio Pal, Cardiothoracic surgery team DIRECTIONS FOR SURGERY INCENTIVE SPIROMETER - Please use the incentive spirometer as instructed (see separate hand out). Begin using immediately. Take 10 breaths 3-4 times daily. PERIDEX MOUTH WASH - Please begin 5 days before surgery. Use twice daily after brushing. Swish for 30 seconds and spit. Do NOT swallow. Please remember to use the morning of surge ry. DIET Impact advanced recovery - Starting 5 days before surgery, please drink 3 boxes of impact d aily Whole fat milk - At midnight the night before surgery, please drink 16-20 ounces of whole f at milk. Nothing to eat or drink after midnight on the night prior to surgery except for carbohydrat e preloading drink. Your doctor will instruct you on what medications to take the morning o f surgery. Pre-operative carbohydrate loading is a small-volume drink suggested by your surgeon to be taken two hours before you are scheduled to undergo surgery. Research is showing that while the body is in a fasting state nutrients come from muscle and protein breakdown. When the b ericka is in a fed state nutrients come from fat and carbohydrate breakdown. Drinking the foll owing carbohydrate drink will trigger the body to go into a fed state whereby nutrient break down will not come from muscle or proteins thereby preventing muscle tissue breakdown and im proving your surgical would healing. Please mix the following in a water bottle or stir in a glass and consume 2 hours before yo u are scheduled to undergo surgery 3/4 cup regular Gatorade (any flavor) 1 cup normal tap water or bottled water 4 tablespoons sugar Studies show the benefits of pre-operative carbohydrate loading include Improved nutrition and insulin resistance after surgery Decreased post-operative nausea and pain Shortened length of hospital stay If you are unable to drink this the day of your surgery do not panic. It will not stop you r surgery from taking place. If you have any questions about the pre-operative carbohydrate-loading drink please call yo jelly surgeon's office. MEDICATIONS Unless otherwise directed by your provider, [...] you do not hear from anyone by 7:00 PM please call the hospital edger machine operator at [phone] and ask to speak to the [facility] [place] for your [id number]-rh-arpg. PARKING Parking for patients and visitors is available in the [facility] [place] Parking structure located across from the emergency department. Patient parking is available on level 1 and 3. Mete red parking is available on the top level. CHECKING IN FOR SURGERY For Hospital Admission (in-patient) you will check in on the day of surgery at the Admittin g Department located on the 9th floor of [facility] TRANSPORTATION You will require transportation home on the day of discharge. Pain medications and physic al activity restrictions may limit your ability to drive safely. CANCELLING YOUR PROCEDURE Please notify the general surgery office at [phone] as soon as possible should you nee [...] prior to your surgery. PRODUCTS CONTAINING ASPIRIN Rosalinda-Lane, Anacin, Anexsia with Codeine, Andynos, Aspirin, Aspirin suppositories, Ascrip tin, Aspergum, Axotal, B-A-C, Baby Aspirin, Tonja, BC Powder, Bexophene, Buffaprin, Bufferin , Buffinol, Cama-Arthritis Strength, Congespirin, Houlton, Coricidin, Damason, Darvon, Dristan, Rosa-Gesic, Digel, Dolprin #3 Tablets, Donatab, Doxaphene, Duragesic, Easprin, Ecotrin, Emag rin Forte, Emiprin, Emprazil, Equagesic, Equazine M, Excedrin, Fiogesic, Fiorgen PH, Fiorice t, Fiorinal, 4-Way Cold Tablet Gemnisyn, Indocin, Liquprin, Lortab ASA, Magnaprin, Marnal, Meprobamate, Midol, Momentum, N orgesic, Hernando, Orphengesic, Pabalate, P-A-C, Percodan, Presalin, Robaxasil, Roxiprin, Nasir eto, Salocol SK-65 Compound, Sine-Aid, Sine-Off,, Cannon, Supac, Talwin Compound, Trigesic, Tolectin , Traiminicin, Vanquish, ZORprin, Zomax PRODUCTS CONTAINING IBUPROFEN Advil, Aleve, Haltran, Medipren, Midol, Motrin, Naproxyn, Nuprin, Rufen OTHER PRODUCTS WHICH MAY PROMOTE BLEEDING Vitamin E, Gingko Biloba, Marine Fatty Acids, Chaffee-3 Fish Oil Supplements documented in this encounter Progress Notes Juvenal Vicente MD - 04/30/2018 11:00 AM PDTI saw and evaluated the patient and agree with e findings and plan as documented in the resident s note. I spent 45 minutes with the linda zheng of which >50% of this time was in counseling and coordination of care. We discussed Esophageal cancer and it various treatment options including minimally invasive esophagectom y.. The diagnosis is Esophageal cancer..Electronically signed by Juvenal Vicente MD at 05/04 5:19 PM Darin Coker MD - 04/30/2018 11:00 AM PDT [facility] Department of Surgery Foregut Surgery Clinic Note Author: Charles Nichols R2 Attending Physician: Dr Juvenal Vicente 04/30/2018 Chief Complaint: evaluation of known esophageal adenocarcinoma History of Present Illness: Jacob Sapp is a 67 y.o. male patient with [id number] esophageal ad enocarcinoma (Siewert III). Was diagnosed in 10/2017 after developing dysphagia, melena and weight loss of 20-30 lbs. Underwent a laparoscopic J-tube placement 12/13/17 and is s/p neoad juvant chemoradiation w/ carbo/taxol and XRT to 50Gy which was complete on 01/30/18 and decre ase in size of the rumor as well as no signs of metastatic disease s/p DX lap, j-tube placem ent and EGD 04/10/18 with no signs of the tumor extending into the lesser curve of the stomac h and intraabdominal washings negative for malignancy. He recovered well from the surgery and is able to eat PO without dysphagia and is not using the feeding tube and has a stable weight. Functional status in clinic: walked up 2 floors (4 flights of stairs) stopped due to fatigu e but no dyspnea. No exertional symptoms Review of Systems: Neuro: no TIA or strokes Cardiac: Diagnosed with coronary artery disease after experiencing chest pain - had angio a nd diagnosed with CAD 8-10 years ago - started medications, no stent or interventions requir ed. Never had VT. Pulm: no SOB, no ankle edema GI: see HPI : no dysuria or difficulty urinating Ext: nil A complete review of systems is as per the HPI above, but is otherwise negative. Past Medical History: Diagnosis Date Cervical spinal stenosis Coronary artery disease 2007 diagnosed on angiogram when experienced chest pain - treated with medications, pain attrib uted to esophageal spasm, never had VT or stent Diverticulosis GERD without esophagitis Hernia, hiatal Hyperlipidemia LBBB (left bundle branch block) Malignant neoplasm (HCC) stomach cancer Sleep apnea no longer using CPAP since weight loss and not snoring any more Past Surgical History Procedure Laterality Date Cholecystectomy 1974 Vasectomy Appendectomy 1961 Incisional hernia repair at appy site repaired x 5 Laparoscopic placement of jejunostomy feeding tube 12/13/2017 Social History Substance Use Topics Smoking status: Former Smoker Quit date: 12/15/1989 Smokeless tobacco: Former User Types: Chew Quit date: 01/17/2018 Alcohol use 0.6 oz/week 1 Glasses of wine per week Medications: CYCLOBENZAPRINE HCL (CYCLOBENZAPRINE ORAL), Take by mouth three times daily as needed for m uscle spasms (neck). Do not use longer than 2-3 weeks. Indications: neck spasms FISH OIL-DHA-EPA ORAL, Take by mouth. HYDROcodone-acetaminophen 5-325 mg oral tablet, Take 1 tablet by mouth every four hours as needed. LORazepam 1 mg oral tablet, Take 1 mg by mouth as needed for anxiety (and sleep). LOVASTATIN ORAL, Take by mouth. omeprazole 10 mg oral capsule,delayed release(DR/EC), Take 10 mg by mouth once daily. oxyCODONE (immediate release) 5 mg oral tablet, Take 1 to 2 tablets by mouth every six hour s as needed. propranolol ER (INDERAL LA) 60 mg oral capsule,extended release 24 hr, Take 60 mg by mouth once daily. Use marijuana oil daily to help with appetite and mood and appears to be helping. Allergies: Allergies Allergen Reactions Codeine Unknown OBJECTIVE: Vitals: RR 16 | Ht 1.702 m (5' 7") | Wt 74.3 kg (163 lb 14.4 oz) | BMI 25.67 kg/(m^2) Physical Exam: GENERAL: Thin, somewhat agitated in clinic, depressed affect objectively NEURO: awake, alert, and oriented LUNGS: Normal respiratory effort CV: RRR ABDOMEN: SNT, open lui and appy scars, J tube site CDI, obvious excess skin Extremities:Warm and well perfused Pathology: no reports received Imaging/Diagnostic Studies: From op report for J tube: Restaging PET CT report 02/26/18: ASSESSMENT: Jacob Melissa Sapp is a 67 y.o. male patientwith [id number] esophageal adenocarcinoma (Siewert III). W as diagnosed in 10/2017 after developing dysphagia, melena and weight loss of 20-30 lbs. Und erwent a laparoscopic J-tube placement 12/13/17 and is s/p neoadjuvant chemoradiation w/ carb o/taxol and XRT to 50Gy which was complete on 01/30/18 and decrease in size of the rumor as w ell as no signs of metastatic disease s/p DX lap, j-tube placement and EGD 04/10/18 with no s igns of the tumor extending into the lesser curve of the stomach and intraabdominal washings negative for malignancy. We discussed next steps in treatment with Mr Sapp and his family. They would like to procee d with surgery and we had a discussion about the conduct of surgery and the recovery period afterwards including common periop complications and altered HRQL and altered GI function po st-op. PARQ session was held with the risks, benefits, alternatives and outcomes discussed in deta il including but not limited to damage to surrounding structures, bleeding, SSI. PLAN: -schedule for laparoscopic possible open 3 field esophagectomy, pyloromyotomy, J-tube excha nge -consent done -pre-op orders in place Dr Vicente has seen and examined the patient and agrees RAND A MIRACLE FERRARI MD Minimally Invasive Surgery Fellow [facility] Pager [phone] documented in this en counter Plan of Treatment Not on filedocumented as of this encounter Visit Diagnoses + + | Diagnosis | + + | Esophageal cancer, stage IIIA (HCC) - Primary | + + documented in this encounter
--- OUTSIDE RECORDS SUMMARY | ~2019-11-23 | XMS | Encounter Summary ---
Demographics + + + | Address | [address] | | | [place] [address] | + + + | Home Phone [...] Team Providers + +------+ + | Care Psychologist Clinical Name | Role | Phone | + +------+ + | Christos Olivarez MD | PCP | | + +------+ + Reason for Visit + + + | Reason | Comments | + + + | Erroneous Encounter | | | - Disregard | | + + + Encounter Details +--------+ + + + + | Date | Type | Department | Care Team | Description | +--------+ + + + + | 11/12/ | Hospital | Hematology/Medical | [address], [address] | | | 2018 | Encounter | Oncology at [facility] | [address] [place], | | | | | [address] | [place] [address] | | | | | Mailcode: [place] | | | | | | Health and | | | | | | Healing, [address] | | | | | | [place], [place] | | | | | | [address] | | | | | | [phone] | | | +--------+ + + + [...] Juanita Acharya RN - 11/12/2018 12:40 PM PSTA user error has taken place: encounter opened in error, closed for administrative reasons. documented in this enc ounter Plan of [...] | | | + +--------+ +------+------+------+ | ondansetron (ZOFRAN) injection | Given | 11/12/20 | 4 mg | | | | 4 mg 4 mg, intravenous, ONCE, 1 | | 18 4:25 | | | | | dose, 11/12/18 at 1630 | | PM PST | | | | + +--------+ +------+------+------+ +---+---+ | | | +---+---+ documented in this encounter"
--- OUTSIDE RECORDS SUMMARY | ~2019-11-23 | XMS | Encounter Summary ---
Demographics + + + | Address | [address] | | | [place] [address] | + + + | Home Phone [...] + + + | Author | [facility] | + + + | Organization | [facility] | + + + [...] Team Providers + +------+ + | Care Orchard Pruner Name | Role | Phone | + +------+ + | Christos Olivarez MD | PCP | | + +------+ + Encounter Details +--------+ + + + + | Date | Type | Department | Care Team | Description | +--------+ + + + + | 08/16/ | Procedure | Diagnostic Imaging | | | | 2017 | Pass | Services at [facility] | | | | | | [address] | | | | | | [place] Mailcode: | | | | | | [address] [facility] | | | | | | [place], [place] | | | | | | [address] | | | | | | [phone] | | | +--------+ + + + [...]
--- OUTSIDE RECORDS SUMMARY | ~2019-11-23 | XMS | Encounter Summary ---
Demographics + + + | Address | [address] | | | [place] [address] | + + + | Home Phone [...] Team Providers + +------+ + | Care Boiler Operator Helper Name | Role | Phone | [...] [place] | | | | | | [id number] [facility] | | | | | | [facility] | | | | | | [place] [address] | | | | | | [phone] | | | +--------+ + + + [...]
--- OUTSIDE RECORDS SUMMARY | ~2019-11-23 | XMS | Encounter Summary ---
Demographics + + + | Address | [address] | | | [place] [address] | + + + | Home Phone | | + + + | Preferred Language | Unknown | + + + | Marital Status | | + + + | Confucianist Affiliation | CAT | + + + | Race | White | + + + | Ethnic Group | Not or | + + + Author + + + | Author | [facility] | + + + | Organization | [facility] | + + + | Address [...] Team Providers + +------+ + | Care Colorer Hides And Skins Name | Role | Phone | + [...] | 2018 | on | Oncology at [place] | [address] | Documentation | | | | for Health & Healing | [address] | | | | | [address] | [place] [address] | | | | | Mailcode: [place] | [phone] | | | | | for Health and | | | | | | Healing, [address] | | | | | | [place], [place] | | | | | | [address] | | | | | | [phone] | | | +--------+ + + + [...]
--- OUTSIDE RECORDS SUMMARY | ~2019-11-23 | XMS | Encounter Summary ---
Demographics + + + | Address | [address] | | | [place] [address] | + + + | Home Phone [...] Team Providers + +------+ + | Care Submarine Element Coordinator Name | Role | Phone | [...] + + + + | 06/17/ | Clinical | Laboratory at [facility] | | Lab Draw | | 2019 | Support | [address] | | | | | Staff | [place], [place] | | | | | | [address] | | | | | | [phone] | | | +--------+ + + + [...] documented as of this encounter Progress Notes Viri Giraldo RN - 06/17/2019 10:00 AM PDT22 gauge PIV placed in patient s right antec ubital space by MECHANICAL ENGINEERING ADVISOR, using an IV start kit. PIV with excellent blood return. Labs drawn and sent. PIV flushed with 10 mL NS without any problems. Sterile transparent dressing applied. Patient tolerated procedure well. documented in this encounter Plan of Treatment Not on filedocumented as of this encounter Procedures + +--------+ + + + | Procedure Name | Priori | Date/Time | Associated Diagnosis | Comments | | | ty | | | | + +--------+ + + + | CBC AND AUTO DIFF - | Routin | 06/17/2019 | Malignant neoplasm | Results for this | | [facility] | e | 10:02 AM | of lower third of | procedure are in the | | | | PDT | esophagus (HCC) | results section. | + +--------+ + + + | COMPLETE METABOLIC | Routin | 06/17/2019 | Malignant neoplasm | Results for this | | PANEL - OLP | e | 10:02 AM | of lower third of | procedure are in the | | | | PDT | esophagus (HCC) | results section. | + +--------+ + + + | CBC WITH AUTO DIFF - | Routin | 06/17/2019 | Malignant neoplasm | Results for this | | OLP | e | 10:02 AM | of lower third of | procedure are in the | | | | PDT | esophagus (HCC) | results section. | + +--------+ + + + | [facility] - COMPLETE | Routin | 06/17/2019 | Malignant neoplasm | Results for this | | METABOLIC SET | e | 10:02 AM | of lower third of | procedure are in the | | | | PDT | esophagus (HCC) | results section. | + +--------+ + + + | LIPASE, PLASMA | Routin | 06/17/2019 | Malignant neoplasm | Results for this | | | e | 10:02 AM | of lower third of | procedure are in the | | | | PDT | esophagus (HCC) | results section. | + +--------+ + + + | LDH TOTAL, PLASMA | Routin | 06/17/2019 | Malignant neoplasm | Results for this | | | e | 10:02 AM | of lower third of | procedure are in the | | | | PDT | esophagus (HCC) | results section. | + +--------+ + + + | AMYLASE, PLASMA | Routin | 06/17/2019 | Malignant neoplasm | Results for this | | | e | 10:02 AM | of lower third of | procedure are in the | | | | PDT | esophagus (HCC) | results section. | + +--------+ + + + | RESEARCH ADDITIONAL | Routin | 06/17/2019 | Malignant neoplasm | Results for this | | TUBES | e | 10:01 AM | of esophagus, | procedure are in the | | | | PDT | unspecified location | results section. | | | | | (HCC) | | + +--------+ + + + | NURSING | Routin | 06/17/2019 | Malignant neoplasm | | | COMMUNICATION #1 - | e | 10:01 AM | of lower third of | | | [place]AC[place] | | PDT | esophagus (HCC) | | + +--------+ + + + documented in this encounter Results LDH TOTAL, PLASMA (06/17/2019 10:02 AM PDT) + +---------+ + + + | Component | Value | Ref Range | Performed | Pathologist | | | | | At | Signature | + +---------+ + + + | LD TOTAL, | 190 | <=250 U/L | [facility] | | [...] | + + + + + | [facility] | [address] | [place] [address] | | | SERVICES, CORE | [address] | | | + + + + + AMYLASE, PLASMA (06/17/2019 10:02 AM PDT) + +-------+ + + + | Component | Value | Ref Range | Performed | Pathologist | | | | | At | Signature | + +-------+ + + + | AMYLASE,KATHY | 38 | 25 - 115 U/L | [facility] [...] + | [facility] | [address] | [place] [address] | | | SERVICES, CORE | [address] | | | + + + + + LIPASE, PLASMA (06/17/2019 10:02 AM PDT) + +--------+ + + + [...] | + + + + + | [facility] | [address] | [place] [address] | | | SERVICES, CORE | [address] | | | + + + + + CBC AND AUTO DIFF - [facility] (06/17/2019 10:02 AM PDT) + + + + + + | Component | Value | Ref Range | Performed | Pathologist | | | | | At | Signature | + + + + + + | WHITE CELL | 4.52 | 3.50 - 10.80 | [facility] | | | COUNT | | K/cu mm | LABORATORY | | | | | | SERVICES, | | | | | | [facility] + | | | | | | HEALING | | + + + + + + | RED CELL | 3.48 (L) | 4.50 - 6.00 | [facility] | | | COUNT | | M/cu mm | LABORATORY | | | | | | SERVICES, | | | | | | [facility] | | [facility] + | | | | | | HEALING | | + + + + + + | HEMOGLOBIN | 11.8 (L) | 13.5 - 17.5 | [facility] | | | | | g/dL | LABORATORY | | | | | | SERVICES, | | | | | | [facility] | | | [facility] + | | | | | | HEALING | | + + + + + + | HEMATOCRIT | 35.5 (L) | 41.0 - 53.0 % | [facility] | | | | | | LABORATORY | | | | | | SERVICES, | | | | | | [facility] | | | [facility] + | | | | | | HEALING | | + + + + + + | MCV | 102.0 (H) | 80.0 - 100.0 fL | [...] + + + | RDW SD | 53.1 (H) | 35.1 - 46.3 fL | [facility] | | | | | | LABORATORY | | | | | | SERVICES, | | | | | | [facility] | [facility] | | [facility] + | | | | | | HEALING | | + + + + + + | PLATELET | 178 | 150 - 400 K/cu | [facility] | | | COUNT | | mm | LABORATORY | | | | | | SERVICES, | | | | | | [facility] | | | [facility] + | | | | | | HEALING | | + + + + + + | MPV | 9.7 | 9.7 - 12.3 fL | [facility] [...] + + + + | NEUTROPHIL | 66.8 | 50.0 - 70.0 % | [facility] | | | % | | | LABORATORY | | | | | | SERVICES, | | | | | | [facility] | | | | | | [facility] + | | | | | | HEALING | | + + + + + + | LYMPHOCYTE | 19.9 | 18.0 - 42.0 % | [facility] | | | % | | | LABORATORY | | | | | | SERVICES, | | | | | | [facility] | | | | | | [facility] + | | | | | | HEALING | | + + + + + + | MONOCYTE % | 8.4 | 3.5 - 9.0 % | [facility] | | | | | | LABORATORY | | | | | | SERVICES, | | | | | | [facility] | | | | [facility] + | | | | | | HEALING | | + + + + + + | EOS % | 3.8 (H) | 1.0 - 3.0 % | [...] + + + + | NEUTROPHIL | 3.02 | 1.80 - 7.70 | [facility] | | | # | | K/cu mm | LABORATORY | | | | | | SERVICES, | | | | | | [facility] | | | | | [facility] + | | | | | | HEALING | | + + + + + + | NEUTROPHIL | 3.02Comment: Preliminary | 1.80 - 7.70 | [facility] [...] + + + | BASO # | 0.04 | 0.00 - 0.10 | [facility] | [...] | + + + + + | [facility] | [address] | [place] [address] | | | [facility] | | | | | HEALTH + HEALING | | | | + + + + + [facility] - COMPLETE METABOLIC SET (06/17/2019 10:02 AM PDT) + +---------+ + + + | Component | Value | Ref Range | Performed | Pathologist | | | | | At | Signature | + +---------+ + + + | GLUCOSE, | 113 (H) | 70 - 99 mg/dL | [facility] | | | PLASMA | | | LABORATORY | | | (LAB) | | | SERVICES, | | | | | | [facility] | | | | | [facility] + | | | | | | HEALING | | + +---------+ + + + | BUN, PLASMA | 8 | 6 - 20 mg/dL | [facility] [...] | | | LABORATORY | | | ITALIAN | | | SERVICES, | | | [...] +---------+ + + + | POTASSIUM, | 4.3 [...] +---------+ + + + | CALCIUM, | 8.4 [...] +---------+ + + + | CALCIUM(ALB | 8.9 | 8.6 - 10.2 | [...] + + + | ALK PHOS | 105 | 56 - 119 U/L | [facility] [...] + + + | ALT (SGPT) | 62 (H) | <=60 U/L | [facility] | [...] +---------+ + + + | ANION | 9 [...] AST CMNT | No Hemo | | [facility] | | | | | | LABORATORY | | | | | | SERVICES, | | | | | | [facility] | | | | | | HEALTH [...] | | | paraplegics, or other muscle-wasting diseases | | + + + + + + + + | Performing | Address | City/State/Zipcode | Phone Number | | Organization | | | | + + + + + | [employer] | [address] | [place] [address] | | | SERVICES, [facility] | | | | | HE[facility] + HEALING | | | | + + + + + RESEARCH ADDITIONAL TUBES (06/17/2019 10:01 AM PDT) + + + + + [...] | + + + + + | [facility] | [address] | [place] [address] | | | SERVICES, CORE | ASHLEY [...] (HCC) | + + documented in this encounter"
--- OUTSIDE RECORDS SUMMARY | ~2019-11-23 | XMS | Encounter Summary ---
Demographics + + + | Address | [address] | | | [place] [address] | + + + | Home Phone [...] Team Providers + +------+ + | Care Material Handling Supervisor Name | Role | Phone | [...] Description | +--------+---------+ + + + | 12/27/ | Office | Radiation Oncology | Daniel Barrera, | Encounter for | | 2018 | Visit | at [facility] [address] | [address] | radiotherapy | | | | [place] | [address] | (Primary Dx) | | | | [id number] [facility] | [place], [place] | | | | | [facility], | [address] | | | | | [place] [address] | [phone] | | | | | [phone] | | | +--------+---------+ + + + [...] + + + | Blood Pressure | 132/79 | 12/27/2017 9:53 AM | | | | | PST | | + + + + + | Pulse | 61 | 12/27/2017 9:53 AM | | | | | PST | | + + + + + | Temperature | 36.9 C (98.4 F) | 12/27/2017 9:53 AM | | | | | PST | | + + + + + | Respiratory Rate | 18 | 12/27/2017 9:53 AM | | | | | PST | | + + + + + | Oxygen Saturation | 98% | 12/27/2017 9:53 AM | Room Air | | | | PST | | + + + + + | Inhaled Oxygen | - | - | | | Concentration | | | | + + + + + | Weight | 90.7 kg (200 lb) | 12/27/2017 9:53 AM | | | | | PST | | + + + + + | Height | - | - | | + + + + + | Body Mass Index | 30.41 | 12/06/2017 10:48 AM | | | | | PST | | + + + + + documented in this encounter Progress Notes Leif Lindsay MA - 12/27/2017 9:41 AM PSTFormatting of this note might be different fro m the original. Nursing Note Patient here for an On Treatment Visit. Completed 5 fractions of a planned 25. Current dose 1000 cGy of total 5000 cGy. Vitals/Pain Level: BP 132/79 | Pulse 61 | Temp (Src) 36.9 C (98.4 F) (Oral) | RR 18 | W t 90.7 kg (200 lb) | SpO2 98[Room Air[% | BMI 30.41 kg/(m^2) Pain Score: Wt Readings from Last 3 Encounters: 12/27/17 90.7 kg (200 lb) 12/06/17 97.7 kg (215 lb 4.8 oz) 11/14/17 97.1 kg (214 lb) No results for input(s): WBC, HB, HCT, PLT, BUN, CR, NA, K, MG in the last 720 hours. Daniel Craig MD - 12/27/2017 9:40 AM PST Radiation Oncology - On Treatment Visit Note ID: 67 y.o. male with [id number] esophageal adenocarcinoma (7 LN) 36-44cm from the [...] Total RT Dose: 50 Gy. Current Fraction: 5 of 25. Concurrent Chemotherapy: carbo/taxol Weds SUBJECTIVE: No solid food by mouth, drinking liquids. Nausea OBJECTIVE: Vital Signs: BP 132/79 | Pulse 61 | Temp (Src) 36.9 C (98.4 F) (Oral) | RR 18 | Wt 90.7 kg (200 lb) | SpO2 98[Room Air[% | BMI 30.41 kg/(m^2) Pain Score: 0 Wt Readings from Last 3 Encounters: 12/27/17 90.7 kg (200 lb) 12/06/17 97.7 kg (215 lb 4.8 oz) 11/14/17 97.1 kg (214 lb) Jacob Sapp's mode of transportation is ambulatory. Skin: no erythema. J-tube site clean ASSESSMENT/PLAN: Compazine in addition to zofran The patient's chart and films were reviewed. Cont RT. DANIEL BARRERA MD documented in this encounter Plan of Treatment Not on filedocumented as of this encounter Visit Diagnoses + + | Diagnosis | + + | Encounter for radiotherapy - Primary Radiotherapy | + + documented in this encounter"
--- OUTSIDE RECORDS SUMMARY | ~2019-11-23 | XMS | Encounter Summary ---
Demographics + + + | Address | [address] | | | [place] [address] | + + + | Home Phone | | + + + | Preferred Language | Unknown | + + + | Marital Status | | + + + | Latter Day Affiliation | CAT | + + + [...] Team Providers + +------+ + | Care Heating Plant Superintendent Name | Role | Phone | [...] | [address] | [address] [facility] | | | | | lower third | [facility] | [facility] | | | | | of esophagus | [facility] | Rd | | | | | Esophagus | Road | [facility] [place] | | | | | Ca | [facility] [place] | [address] | | | | | Procedures | [address] | Phone: | | | | | Consult, | Phone: | [phone] | | | | | Sage Wilkins | [phone] | Fax: | | | | | | Fax: | [phone] | | | | | | [phone] | | +--------+--------+ + + + + Encounter Details +--------+ + + + + | Date | Type | Department | Care Team | Description | +--------+ + + + + | 12/24/ | Hospital | Radiation Oncology | | | | 2017 | Encounter | at [facility] [address] | | | | | | [place] | | | | | | [id number] [facility] | | | | | | [facility] [place], | | | | | | [place] [address] | | | | | | [phone] | | | +--------+ + + + [...]
--- OUTSIDE RECORDS SUMMARY | ~2019-11-23 | XMS | Encounter Summary ---
Demographics + + + | Address | [address] | | | [place] [address] | + + + | Home Phone [...] | | + + +---------+ + | Flowre Sapp | ECON | Unknown | | + + +---------+ + Care Team Providers + +------+ + | Care Co Teacher Name | Role | Phone | + +------+ + | Christos Olivarez MD | PCP | | + +------+ + Encounter Details +--------+ + + + + | Date | Type | Department | Care Team | Description | +--------+ + + + + | 04/09/ | Delivery Consultant | LAB CORE [address] | Tino Mariscal MD | Pre-op testing | | 2018 | | [address] | [address] | (Primary Dx) | | | | [place], [place] | [place], | | | | | [address] | [place] [address] | | | | | [phone] | [phone] | | | | | | | [...] + | Diagnosis | + + | Pre-op testing - Primary Preoperative examination, unspecified | + + documented in this encounter"
--- OUTSIDE RECORDS SUMMARY | ~2019-11-23 | XMS | Encounter Summary ---
Demographics + + + | Address | [address] | | | [place] [address] | + + + | Home Phone [...] + + + | Author | [facility] | + + + | Organization | [facility] | + + + | Address [...] Team Providers + +------+ + | Care Ferry Hand Name | Role | Phone | + +------+ + | Luis Leiva DO | PCP | | + +------+ + Reason for Visit + + + | Reason | Comments | + + + | Nausea and vomiting | | + + + | Weakness | | + + + | Poor Nutritional | | | Intake | | + + + Encounter Details +--------+ + + + + | Date | Type | Department | Care Team | Description | +--------+ + + + + | 01/30/ | Clinical | Radiation Oncology | [facility] [address] | Nausea and vomiting; | | 2017 | Support | at [facility] [address] | [address] | Weakness; Poor | | | Staff | [address] | [place], [place] | Nutritional Intake | | | | [id number] [facility] | [address] | | | | | [facility], | | | | | | [place] [address] | | | | | | [phone] | | | +--------+ + + + [...] + + + | Blood Pressure | 110/78 | 01/30/2018 11:02 AM | | | | | PST | | + + + + + | Pulse | 130 | 01/30/2018 11:02 AM | | | | | PST | | + + + + + | Temperature | 36.7 C (98 F) | 01/30/2018 11:00 AM | | | | | PST | | + + + + + | Respiratory Rate | - | - | | + + + + + | Oxygen Saturation | 100% | 01/30/2018 11:00 AM | | | | | PST | | + + + + + | Inhaled Oxygen | - | - | | | Concentration | | | | + + + + + | Weight | - | - | | + + + + + | Height | - | - | | + + + + + | Body Mass Index | - | - | | + + + + + documented in this encounter Progress Notes Miguel Harper, MARIAJOSE - 01/30/2018 11:00 AM Senait received his last esophageal RT today m His spouse Dudley reports: Nausea w vomiting (more phlegm than emesis per Dudley); taking Zofran and promethazine aroun d the clock Getting only maybe 2 cans of TF formula in J tube daily Having daily BMs Drank a few sips of H2O this AM but really nothing by mouth Very shaky, dizzy upon standing; extremely fatigued. VS: 114/76 HR 117 sitting 110/78 HR 130 standing 98.0F oral temp 100% O2 sats Resp 16 Pain to chest 3-10 pain taking hydrocodone for pain Getting IV hydration at [facility] today (headed over there now); I called and spoke with the nurse there at [facility] (Dm) and gave report, she said they will have one of the hr representative come down and take a look at him. All of the above info relayed to Dr. Barrera via email. documented in this encounter Plan of Treatment Not on filedocumented as of this encounter Visit Diagnoses + + | Diagnosis | + + | Encounter for radiotherapy - Primary Radiotherapy | + + documented in this encounter"
--- OUTSIDE RECORDS SUMMARY | ~2019-11-23 | XMS | Encounter Summary ---
Demographics + + + | Address | [address] | | | [place] [address] | + + + | Home Phone [...] Providers + +------+ + | Care Door Repairman Name | Role | Phone | + [...] [address] | radiotherapy | | | | [place] | [address] | (Primary Dx) | | | | [id number] [facility] | [place], [place] | | | | | [facility], | [address] | | | | | [place] [address] | [phone] | | | | | [phone] | | | +--------+---------+ + + + [...] Visit Note ID: 67 y.o. male with [id number] esophageal adenocarcinoma (7 LN) 36-44cm from the [...]
--- OUTSIDE RECORDS SUMMARY | ~2019-11-23 | XMS | Encounter Summary ---
Demographics + + + | Address | [address] | | | [place] [address] | + + + | Home Phone | | + + + | Preferred Language | Unknown | + + + | Marital Status | | + + + | Yarsani Affiliation | CAT | + + + [...] Team Providers + +------+ + | Care Director Of Food And Nutrition Services Name | Role | Phone | + +------+ + | Christos Olivarez MD | PCP | | + +------+ + Encounter Details +--------+ + + + + | Date | Type | Department | Care Team | Description | +--------+ + + + + | 04/09/ | Marketing Data Specialist | LAB CORE [address] | Tino Mariscal MD | | | 2018 | | [address] | [address] | | | | | [place], [place] | [place], | | | | | [address] | [place] [address] | | | | | [phone] | [phone] | | | | | | | [...]
--- OUTSIDE RECORDS SUMMARY | ~2019-11-23 | XMS | Encounter Summary ---
Demographics + + + | Address | [address] | | | [place] [address] | + + + | Home Phone [...] Team Providers + +------+ + | Care Chemical Engineering Teacher Name | Role | Phone | [...] | | | | lower third | [address] | Mailcode: | | | | | of esophagus | [address] | Center for | | | | | Procedures | [place], [place] | Health and | | | | | [place] | [address] | Healing, | | | | | SERVICES | Phone: | [address] | | | | | PROVIDED | [phone] | [place], [place] | | | | | PART OF NE | Fax: | [address] | | | | | INJ | [phone] | Phone: | | | | | N[address]UM[address] | | [phone] | | | | | MG Study | | Fax: | | | | | IRB: [id number] | | [phone] | | | | | Study Title: [...] | 12/24/ | Hospital | Hematology/Medical | [address], [address] | | | 2019 | Encounter | Oncology at [facility] | [address] [place], | | | | | [address] | [place] [address] | | | | | Mailcode: [place] | | | | | | for Health and | | | | | | [facility] | | | | | | [place], [place] | | | | | | [address] | | | | | | [phone] | | | +--------+ + + + [...] as of this encounter Progress Notes Karen Farias, MARIAJOSE - 12/24/2018 8:45 AM PSTChemotherapy Nurse Note Name: Jacob Sapp Date: 12/24/2018 Physician: Walt Allergies: Jacob is allergic to codeine. Diagnosis: Malignant neoplasm of lower third of esophagus (HCC) Significant Other: female present Nursing Assessment: Fever: no; Diarrhea:No Constipation: No SOB / Cough: no; Rash: no Edema: no; Mucositis: no; Urinary: no; Neuropathy: no; S/S Bleeding: no; Severity (1=Not at all, 2=A little, 3=Quite a bit, 4=Very much) Nausea and/or Vomitin Fatigue: 2 Pain: 0 Narrative: Patient here for INV Nivolumab. PIV started and labs drawn by Starter RN. CBC and CMP results reviewed. Positive blood ret urn on IV line prior and after infusion. Medication infused with 250ml NS sidearm bag. Pt tolerated without incident. PKs drawn per complaints coordinator instructions and placed [facility] bin for complaints coordinator product picker. PIV d/c'd and intact. Pt Alert & Oriented x3, No a cute distress, Mood & affect appropriate and Recent & remote memory intact and discharged wi th family/haul driver and ambulatory. Refer to MAR and [...] 480 mg in | New Bag | 12/24/19 | 480 mg | 120 | | | INV NaCl 0.9% IV 480 mg, | | 19 12:00 | | mL/hr | | | intravenous, Administer over 30 | | PM PST | | | | | Minutes, ONCE, 1 dose, Tue | | | | | | | 12/24/18 at 1030, Pt ID: [id number], | | | | | | | Administer using a 0.2 micron | | | | | | | filter. Flush line with 15-20 mL | | | | | | | of normal saline. For | | | | | | | investigational use only, HIGH | | | | | | | ALERT MEDICATION IRB:[id number], | | | | | | | Protocol:[id number], Infuse using | | | | | | | 0.2 micron filter., | | | | | | + +---------+ +--------+-------+------+ +---+---+ | | | +---+---+ documented in this encounter
--- OUTSIDE RECORDS SUMMARY | ~2019-11-23 | XMS | Encounter Summary ---
Demographics + + + | Address | [address] | | | [place] [address] | + + + | Home Phone | | + + + | Preferred Language | Unknown | + + + | Marital Status | | + + + | Quaker Affiliation | CAT | + + + [...] Team Providers + +------+ + | Care Merchandising Intern Name | Role | Phone | [...] | [address] | [address] [facility] | | | | | lower third | Veterans | [facility] | | | | | of esophagus | [facility] | Rd | | | | | Esophagus | Road | [facility] [place] | | | | | Ca | [facility] [place] | [address] | | | | | Procedures | [address] | Phone: | | | | | Consult, | Phone: | [phone] | | | | | Sage Wilkins | [phone] | Fax: | | | | | | Fax: | [phone] | | | | | | [phone] | | +--------+--------+ + + + + Encounter Details +--------+ + + + + | Date | Type | Department | Care Team | Description | +--------+ + + + + | 01/25/ | Hospital | Radiation Oncology | | | | 2018 | Encounter | at [facility] [address] | | | | | | [place] | | | | | | [id number] [facility] | | | | | | [facility] [place], | | | | | | [place] [address] | | | | | | [phone] | | | +--------+ + + + [...]
--- OUTSIDE RECORDS SUMMARY | ~2019-11-23 | XMS | Encounter Summary ---
Demographics + + + | Address | [address] | | | [place] [address] | + + + | Home Phone | | + + + | Preferred Language | Unknown | + + + | Marital Status | | + + + | Scientologist Affiliation | CAT | + + + [...] Team Providers + +------+ + | Care Assembler Small Products Name | Role | Phone | + [...] | | | [address] | [place], [place] | | | | | Mailcode: UHN83 | [address] | | | | | Manuel Madrigal | [phone] | | | | | [address] [place], [place] | | | | | | [address] | | | | | | [phone] | | | +--------+ + + + [...] filedocumented as of this encounter Results [facility] (11/14/2017 4:40 PM PST) + + | Specimen | + + | | + + + + + | Narrative | Performed At | + + + | MRN: | [facility] | | [id number] Date: 11/14/2017Patient Name: Jacob Carlos #: | ENDOSCOPY | | [id number] of : 1950SN: [id number] Type: | | | AmbulatoryRoom: GI 2Procedure: Upper EUSIndications: | | | Pre-treatment staging of esophageal adenocarcinomaProviders: | | | FRANC LI MD (Doctor), MERCEDES TABOR RN (Nurse), | | | JUNE SLADE RN ([employer]), | | | SHASHI HERNANDEZ ([employer])Referring | | | MD: BRAXTON BECERRAequesting Provider: [...] | | | The Olympus [id number] Endoscope #[id number] | | | was introduced through the mouth, and | | | advanced to the second part of | | | duodenum. The Olympus [id number] Radial Echoendoscope | | | #[id number] was introduced through the mouth, and | [...] procedure.HANNAH Harris MD11/14/2017 | | | 5:56:27 [facility].Number of | | | Addenda: 0Note Initiated On: 11/14/2017 4:40 [facility] Letter to: | | | BRYANT PAINTING [...]
--- OUTSIDE RECORDS SUMMARY | ~2019-11-23 | XMS | Encounter Summary ---
Demographics + + + | Address | [address] | | | [place] [address] | + + + | Home Phone [...] Team Providers + +------+ + | Care Cleaning And Washing Equipment Operator Name | Role | Phone [...] | | | | lower third | [address] | Mailcode: | | | | | of esophagus | [address] | [facility] for | | | | | Procedures | [place], [place] | Health and | | | | | [place] | [address] | Healing, | | | | | SERVICES | Phone: | [address] | | | | | PROVIDED | [phone] | [place], [place] | | | | | PART OF [place] | Fax: | [address] | | | | | INJ | [phone] | Phone: | | | | | NIVOLUM[address] 1 | | [phone] | | | | | [place] EST | | Fax: | | | | | PATIENT | | [phone] | | | | | LEVEL V | | | | | | | Study IRB: | | | | | | | [id number] Study | | | | | | [...] Description | +--------+---------+ + + + | 05/20/ | Office | Hematology/Medical | Krunal Godoy, | Malignant neoplasm | | 2019 | Visit | Oncology at [place] | ,PhD [address] | of lower third of | | | | for Health & Healing | [address] [place], [place] | esophagus (HCC) | | | | [address] | [address] | (Primary Dx); | | | | Mailcode: [place] | [phone] | Clinical trial exam; | | | | for Health and | | Nausea; Fatigue, | | | | Healing, Building [address] | | unspecified type; | | | | [place], [place] | | Encounter for | | | | [address] | | antineoplastic | | | | [phone] | | immunotherapy; | | | | [...] + + + | Blood Pressure | 134/77 | 05/20/2019 1:15 PM | | | | | PDT | | + + + + + | Pulse | 73 | 05/20/2019 1:15 PM | | | | | PDT | | + + + + + | Temperature | 36.6 C (97.9 F) | 05/20/2019 1:15 PM | | | | | PDT | | + + + + + | Respiratory Rate | - | - | | + + + + + | Oxygen Saturation | 100% | 05/20/2019 1:15 PM | | | | | PDT | | + + + + + | Inhaled Oxygen | - | - | | | Concentration | | | | + + + + + | Weight | 72.6 kg (160 lb) | 05/20/2019 1:15 PM | | | | | PDT | | + + + + + | Height | 169.5 cm (5' 6.73") | 05/20/2019 1:15 PM | | | | | PDT | | + + + + + | Body Mass Index | 25.26 | 05/20/2019 1:15 PM | | | [...] encounter Progress Notes Krunal Godoy MD,PhD - 05/20/2019 2:00 PM PDT ID: Jacob Sapp is a [...] or no response, score 3) - 07/31/2018 [facility] Medical oncology evaluation- offered enrollment on Checkmate [...] in RUL likely c/w infectious etiology. - 12th cycle of nivolmab/placebo was delayed due to grade 2 elevations in AST/ALT. Resolved with dose hold. Interval History: Ongoing Nivolumab/placebo study treatment. Tolerating well. Stable fatigu e. Continues eating and drinking well. Stable food dysphagia. He denies jaundice, diarrhea, varsha-colored and loose stools, dyspnea, falls, loss of consciousness, pain with swallowing, and rashes. Restaging studies performed. Review of Systems: denies fevers. Remainder of complete 14 pt review of systems negative ex cept as above. PFSH: I reviewed and updated. Good social support system. Physical Examination: BP 134/77 (BP Location: Left upper arm, Patient Position: Sitting) | Pulse 73 | Temp 36.6 C (97.9 F) (Oral) | Ht 1.695 m (5' 6.73") | Wt 72.6 kg (160 lb) | SpO2 100% | BMI 2 5.26 kg/m | BSA 1.85 m General: Well developed, well nourished, adult male patient, awake and alert in OTU chair. HEENT: +hearing aids, hearing impaired. Anicteric sclerae. Oropharynx clear, mucous membran es moist. No sinus congestion, mucositis, or thrush. Chest: CTAB; No crackles, cough, wheezing, or stridor. Relaxed respiratory effort. CV: RRR, no murmurs or gallops. Abd: Soft, nondistended. Non-tender to palpation. No HSM. Minor prominence over old appende ctomyl scar Skin: Dry and warm. No rashes or ecchymoses. Ext: Warm, well perfused. No LE edema. Neuro: A&O. No facial asymmetries. No gait abnormalities, no tremor. No memory deficits mario reciated. Psych: Pleasant, conversant, affect appropriate. ECO Labs: Lab Results Component Value Date NA 136 05/20/2019 K 3.6 05/20/2019 CL 107 05/20/2019 BICARB 30 05/20/2019 BUN 9 05/20/2019 CR 0.60 05/20/2019 GLU 131 05/20/2019 CA 8.9 05/20/2019 AST 78 05/20/2019 ALT 67 05/20/2019 AP 85 05/20/2019 TBILI 0.7 05/20/2019 TP 6.7 05/20/2019 ALB 3.2 05/20/2019 Lab Results Component Value Date WBC 3.37 05/20/2019 HB 10.7 05/20/2019 HCT 32.2 05/20/2019 PLT 142 05/20/2019 MCV 102.9 05/20/2019 RDW 54.4 05/20/2019 I independently reviewed the imaging studies. CT CHEST, ABDOMEN AND PELVIS W IV CONTRAST Order: [id number] Performed: 05/20/2019 09:49 Status: Final result Visible to patient: No (Not Released ) Dx: Malignant neoplasm of lower third of ... Details Reading Physician Reading Date Result Priority Joanne Sandoval MD 05/20/2019 Narrative EXAM: CT of the chest, abdomen and pelvis WITH intravenous contrast. HISTORY: Malignant neoplasm of lower third of esophagus COMPARISON: 02/17/2019. TECHNIQUE: CT of the chest, abdomen and pelvis WITH intravenous contrast. Coronal and sag ittal reformats were generated and reviewed. FINDINGS: CHEST: The heart and great vessels are intact. Trace right pleural effusion is present. Pos toperative changes of an esophagectomy with gastric conduit. No thoracic adenopathy. No justina cardial effusions. Continued enlargement of the left lower lobe subpleural nodule that was b demarcus visible on 11/27/2018, and now measures 6 x 5 mm (image 91). Scattered sub-5 mm pulmonar y nodules are unchanged and likely postinflammatory. LIVER: 2 left lateral segment hypodensities are stable and likely cysts or hemangiomas. BILIARY: The gallbladder is surgically absent. PANCREAS: Diffuse atrophy, unchanged. SPLEEN: 12 mm hypodense previously measured 9 mm. This is likely benign, possibly a hemangi kalyani given its stability. ADRENALS: Unremarkable. KIDNEYS/URETERS: Multiple renal cortical cysts are present. PELVIC ORGANS/BLADDER: Unremarkable. GI TRACT: Scattered colonic diverticula are noted without diverticulitis. Large amount stoo l is noted throughout the descending colon. The bowel loops are not dilated. PERITONEUM: No free air or fluid. LYMPH NODES: No lymphadenopathy. VESSELS: Scattered atherosclerotic calcifications are present. BONES AND SOFT TISSUES: Since 08/21/2018, there has been interval enlargement of a 2.6 x 1.2 cm right abdominal oblique muscle nodule (image 183), previously, 2.5 x 0.9 cm on 02/12/2019 . Stable right flank having containing uncomplicated hernia. IMPRESSION: Since 02/17/2019, there is continued enlargement of a right intramuscular enhancing soft tis charis involving the right lower quadrant abdominal oblique muscle. This could represent a meta stasis although is an atypical site. Further evaluation with tissue sampling may be helpful. I have personally reviewed the images and, if necessary, edited the report. I agree with e report as now presented. Final signature: Joanne Sandoval MD 05/20/2019 11:50 AM Preliminary: Joanne Sandoval MD Dictation initiated: Joanne Sandoval MD 05/20/2019 11:36 AM Specimen Collected: 05/20/19 11:36 Last Resulted: 05/20/19 11:50 Plan/ Recommendations: 1. Cancer Staging Malignant neoplasm of lower third of esophagus (HCC) Staging form: Esophagus - Adenocarcinoma, AJCC 8th Edition - Clinical: No stage assigned - Unsigned - Pathologic: Stage IIIB (pT3, pN2, cM0) - Signed by Marie Liz MD on 07/31/2018 - Ongoing, stable post-infusion fatigue (D1-5), otherwise appears to be tolerating well - I discussed the goals, objectives, risks, benefits, and toxicities of therapy and the pat ient wishes to proceed. - Will need close and frequent monitoring physical examinations and laboratory monitoring f or toxicities of ongoing immunotherapy 2. Low appetite, low grade nausea, iIntermittent, improved with olanzapine. - Continue Zyprexa - continue following with dietitian 4. Mood: Ongoing, stable - pt previously reported increase in depressed mood, no SI/HI - not discussed today d/t improved mood. 5. Question of nodule in right lower quadrant abdominal oblique muscle. Discussed with radi ology and described prior complicated appendectomy with wound dehiscence and peritonitis. In this context, this seems to be non-metastatic. However will follow and if continues to enla rge, will obtain PET and potential biopsy. Research Note Study #: [id number] Patient Name: Jacob Sapp Patient Medical/Surgical History Date Cervical spinal stenosis 1997 Coronary artery disease - diagnosed on angiogram when experienced chest pain - treated with medications, pain attributed to esophageal spasm, never had TN or stent 2007 H/O Diverticulosis 1997 Hernia, [...] capsule (DR/EC) DAILY Depressive symptoms/an xiety HYDROcodone-acetaminophen 2008 5-325 mg PO tablet Take 1 tablet by mouth Q4HRs PRN Pain ( neck) LORazepam 2016 1 mg PO PRN Anxiety/sleep Lovastatin 2012 20 mg PO DAILY - in evening Hyperlipidemia Omeprazole (Prilosec) 2008 20 mg PO, delayed release capsule (DR/EC) [...] Fluconazole 02/07/2019 02/13/2019 UNK PO DAILY Thrush Adverse Event Name Start Date End Date [...] none 2 = no N Last updated: 05/20/2019 documented in this encounter Plan of Treatment Not on filedocumented as of this encounter Procedures + +--------+ + + + | Procedure Name | Priori | Date/Time | Associated Diagnosis | Comments | | | ty | | | | + +--------+ + + + | ADMINISTER | Routin | 05/20/2019 | | | | CHEMOTHERAPY PER | e | 1:40 PM | | | | TREATMENT PARAMETERS | | PDT | | | + [...] quadrant | + + documented in this encounter
--- OUTSIDE RECORDS SUMMARY | ~2019-11-23 | XMS | Encounter Summary ---
Demographics + + + | Address | [address] | | | [place] [address] | + + + | Home Phone | | + + + | Preferred Language | Unknown | + + + | Marital Status | | + + + | Yarsani Affiliation | CAT | + + + | Race | White | + + + | Ethnic Group | Not or | + + + Author + + + | Author | [facility] | + + + | Organization | [facility] | + + + | Address | [...] Team Providers + +------+ + | Care Cylinder Block Hole Reliner Name | Role | Phone | + +------+ + | Christos Olivarez MD | PCP | | + +------+ + Encounter Details +--------+ + + + + | Date | Type | Department | Care Team | Description | +--------+ + + + + | 09/02/ | Security Compliance Specialist | Hematology | Rebecca Booth | Malignant neoplasm | | 2019 | | Oncology Study [address] | [address] | of lower third of | | | | [address] | [address] [place], | esophagus (HCC) | | | | Mailcode: [address]M | [place] [address] | (Primary Dx); Other | | | | [facility] | | specified disorders | | | | and Healing, | | involving the immune | | | | Building | | mechanism, not | | | | Floor [place], [place] | | elsewhere classified | | | | [address] | | ([facility]) | | | | [phone] | | | +--------+ + + + [...] of this encounter Plan of Treatment + +------+--------+ + + | Name | Type | Priori | Associated Diagnoses | Order Schedule | | | | ty | | | + +------+--------+ + + | [facility] - CBC W | Lab | Routin | Malignant neoplasm | Expected: 09/10/2019 | | DIFFERENTIAL | | e | of lower third of | (Approximate), | | | | | esophagus (HCC) | Expires: 10/03/2020 | + +------+--------+ + + | [facility] - COMPLETE | Lab | Routin | Malignant neoplasm | Expected: 09/10/2019 | | METABOLIC SET | | e | of lower third of | (Approximate), | | | | | esophagus (HCC) | Expires: 10/03/2020 | + +------+--------+ + + | FREE T3, SERUM | Lab | Routin | Malignant neoplasm | Expected: 09/10/2019 | | | | e | of lower third of | (Approximate), | | | | | esophagus (HCC) | Expires: 10/03/2020 | + +------+--------+ + + | LDH TOTAL, PLASMA | Lab | Routin | Malignant neoplasm | Expected: 09/10/2019 | | | | e | of lower third of | (Approximate), | | | | | esophagus (HCC) | Expires: 10/03/2020 | + +------+--------+ + + | TSH W/REFLEX TO FREE | Lab | Routin | Other specified | Expected: 09/10/2019 | | T4(IF ABNORMAL) | | e | disorders involving | (Approximate), | | | | | the immune | Expires: 10/03/2020 | | | | | mechanism, not | | | | | | elsewhere classified | | | | | | (HCC) Malignant | | | | | | neoplasm of lower | | | | | | third of esophagus | | | | | | (HCC) | | + +------+--------+ + + | AMYLASE, PLASMA | Lab | Routin | Malignant neoplasm | Expected: 09/10/2019 | | | | e | of lower third of | (Approximate), | | | | | esophagus (HCC) | Expires: 10/03/2020 | + +------+--------+ + + | LIPASE, PLASMA | Lab | Routin | Malignant neoplasm | Expected: 09/10/2019 | | | | e | of lower third of | (Approximate), | | | | | esophagus (HCC) | Expires: 10/03/2020 | + +------+--------+ + + | T3 TOTAL, SERUM | Lab | Routin | Malignant neoplasm | Expected: 09/10/2019 | | | | e | of lower third of | (Approximate), | | | | | esophagus (HCC) | Expires: 10/03/2020 | + +------+--------+ + + documented as of this encounter Visit Diagnoses + + | Diagnosis | + + | Malignant neoplasm of lower third of esophagus (HCC) - Primary Malignant neoplasm of | | lower third of esophagus | + + | Other specified disorders involving the immune mechanism, not elsewhere classified | | (HCC) | + + documented in this encounter"
--- OUTSIDE RECORDS SUMMARY | ~2019-11-23 | XMS | Encounter Summary ---
Demographics + + + | Address | [address] | | | [place] [address] | + + + | Home Phone [...] + + + | Author | [facility] | + + + | Organization | [facility] | + + + | Address | Unknown | + + + | Phone | Unavailable | + + + Support + + +---------+ + | Name | Relationship | Address | Phone | + + +---------+ + | Mauricio Sapp | ECON | Unknown | | + + +---------+ + | Folwer Sapp | ECON | Unknown | | + + +---------+ + Care Team Providers + +------+ + | Care Exhibit Artist Name | Role | Phone | + +------+ + | Christos Olivarez MD | PCP | | + +------+ + Encounter Details +--------+ + + + + | Date | Type | Department | Care Team | Description | +--------+ + + + + | 10/24/ | Stock Controller | Hematology | Marie Liz, | Malignant neoplasm | | 2018 | | Oncology Study [address] | [address] | of esophagus, | | | | [address] | [address] | unspecified location | | | | Mailcode: CH7M | [place] [address] | ([facility]) (Primary Dx) | | | | [facility] | [phone] | | | | | and Monika, | | | | | | [facility] | | | | | | Floor [place], [place] | | | | | | [address] | | | | | | [phone] | | | +--------+ + + + [...] on filedocumented as of this encounter Results AIDAN PRATHER (10/28/2018 8:50 AM PST) + + + + + + | Component | Value | Ref Range | Performed | Pathologist | | | | | At | Signature | + + + + + + | COLOR(UR) | Jessica | | [facility] | | | | [...] + + + + | PROTEIN(LAB | 30.0 | Negative, 30.0 | [facility] | | | ) | | mg/dL | LABORATORY | | | | | | SERVICES, | | | | | | CORE | | + + + + + + | BILIRUBIN | Small (A) | Negative | [facility] | | | [...] + + + + | KETONES | 5.0 (A) | Negative mg/dL | [facility] | [...] + + + + | LEUKOCYTE | Trace (A) | Negative | [facility] | | | ESTERASE | | | LABORATORY | | | | | | SERVICES, | | | | | | CORE | | + + + + + + | SPECIFIC | 1.030Comment: Specific | 1.005 - 1.030 | [facility] | | | GRAVITY | [place] performed by | | LABORATORY | | | | refractometry | | SERVICES, | | | | | | CORE | | + + + + + + + + | Specimen | + + | Urine | + + + + + | Narrative | Performed At | + + + | Positive bilirubin dipstick results are not confirmed by an | [facility] | | alternate method. Suggest serum total bilirubin and/or liver function | LABORATORY | | panel if clinically indicated. | SERVICES, CORE | + + + + + + + + | Performing | Address | City/State/Zipcode | Phone Number | | Organization | | | | + + + + + | [facility] | [address] | [place] [address] | | | SERVICES, CORE | [address] | | | + + + + + documented in this encounter Visit Diagnoses + + | Diagnosis | + + | Malignant neoplasm of esophagus, unspecified location (HCC) - Primary | + + documented in this encounter"
--- OUTSIDE RECORDS SUMMARY | ~2019-11-23 | XMS | Encounter Summary ---
Demographics + + + | Address | [address] | | | [place] [address] | + + + | Home Phone [...] Team Providers + +------+ + | Care Loader Machine Name | Role | Phone | + [...] Description | +--------+---------+ + + + | 04/10/ | Surgery | [address] Intra Op [address] | Eleonora Ybarra, | DIAGNOSTIC | | 2017 | | [address] | [address] | LAPAROSCOPPY WITH | | | | Manolo Light | [place], [place] | WASHINGS, | | | | Hospital Admitting | [address] | | | | | Desk Located on the | [phone] | | | | | 9th floor | | | | | | [place], [place] | | | | | | [address] | | | +--------+---------+ + + + [...] + +--------+ + + + | NON RESEARCH METHODOLOGIST CYTOLOGY | Routin | 04/10/2018 | | [...] Preoperative Diagnosis: esophageal cancer | | | [id number] Postoperative Diagnosis: same Procedure: 1. | | | Diagnostic laparoscopy 2. Intraabdominal washings 3. Jejunostomy | | | tube exchange 4. EGD Surgeon Eleonora Ybarra MD | | | Piano Sounding Board Matcher(s): Rand Wallace MD Indication: A 67 y.o. [...] | MIRACLE FERRARI MD General Surgery Resident [facility] & | | | [facility] Pager [phone] I was present for the entire | | | procedure on 04/10/18 as described in the note for this encounter. | | | Eleonora Ybarra MD [facility] [address] | | | [address] [place] [address] | | + + + SURGICAL PATHOLOGY [...] number | | | | | | [id number].A. Stomach, | | | | | | [...] + + + + | [facility] | [address] | [place] [address] | | | PATHOLOGY | [address] | | | + + + + + NON RESEARCH METHODOLOGIST CYTOLOGY (04/10/2018 8:32 AM PDT) + + [...] Cytopathology | | | | | | Harley Mathwe MD | | | | | | [...] + + + + | [facility] | [address] | [place] [address] | | | PATHOLOGY | [address] [...] in this encounter Administered Medications + +--------+ +-------+------+---------+ | Medication Order | MAR | Action | Dose | Rate | Site | | | Action | Date | | | | + +--------+ +-------+------+---------+ | bupivacaine (PF) | Given | 04/10/20 | 10 mL | | Abdomen | | (MARCAINE,SENSORCAINE-MPF) | | 18 8:31 | | | | | injection INTRAPROCEDURE PRN, | | AM PDT | | | | | Starting Sun04/10/18 at 0831, | | | | | | | Until Sun04/10/18 at 0915 | | | | | | + +--------+ +-------+------+---------+ +---+---+ | | | +---+---+ + +-------+ +--------+---+---+ | HYDROmorphone (DILAUDID) | Given | 04/10/20 [...] tablet 1 dose, | | | Starting 04/10/18 at 1044, | | | Until Sun04/10/18 at 1045 | | + +---+ | | | + +---+ documented in this encounter
--- OUTSIDE RECORDS SUMMARY | ~2019-11-23 | XMS | Encounter Summary ---
Demographics + + + | Address | [address] | | | [place] [address] | + + + | Home Phone [...] Team Providers + +------+ + | Care Multimedia Instructional Designer Name | Role | Phone | [...] Closed | | Radiology | Diagnoses | Dillon | [address] Scan | | | | | | MD Kristina | [address] | | | | | Gastroesopha | [address] | | | | | geal cancer | [facility] | Mailcode: | | | | | (HCC) | Rd | [facility] | | | | | Procedures | [place], [place] | for [facility] | | | | | CT CHEST, | [address] | and Healing, | | | | | ABDOMEN AND | | Building [address], | | | | | PELVIS [address] IV | | 3rd Floor | | | | | CONTRAST | | [place], [place] | | | | | | | [address] | | | | | | | Phone: | | | | | | | [phone] | | | | | | | Fax: | | | | | | | [phone] | +--------+--------+ + + + + Reason [...] | Gastroesopha | [address] | | | | | geal cancer | [facility] | Mailcode: | | | | | (HCC) | Rd | [facility] | | | | | Procedures | [place], [place] | for Health | | | | | CT CHEST, | [address] | and Healing, | | | | | ABDOMEN AND | | Building 1, | | | | | PELVIS [address] IV | | 3rd Floor | | | | | CONTRAST | | [place], [place] | | | | | | | [address] | | | | | | | Phone: | | | | | | | [phone] | | | | | | | Fax: | | | | | | | [phone] | +--------+--------+ + + + + Encounter Details +--------+ + + + + | Date | Type | Department | Care Team | Description | +--------+ + + + + | 03/22/ | Hospital | Radiology/Imaging | Eleonora Ybarra, | | | 2017 | Encounter | Lab at [facility] [address] | MD [address] | | | | | [address] Mailcode: | [place], [place] | | | [facility] | [address] | | | | | Health and Healing, | [phone] | | | | | Building [address], 3rd | | | | | | Floor [place], [place] | | | | | | [address] | | | | | | [phone] | | | +--------+ + + + [...] | CT CHEST, ABDOMEN | Routin | 03/22/2018 | Gastroesophageal | Results for this | | AND PELVIS W IV | e | 2:56 PM | cancer (HCC) | procedure are in the | | CONTRAST | | PDT | | results section. | + +--------+ + + + | CREATININE, POC | Routin | 03/22/2018 | Gastroesophageal | Results for this | | | e | 2:54 PM | cancer (HCC) | procedure are in the | [...] | + +---------+ + + CREATININE, POC (03/22/2018 2:54 PM PDT) + +-------+ + + + [...] | | CARE TESTS | | + +-------+ + + + + + | Specimen | + + | Blood - Blood | | (substance) | + + + + + + + | Performing | Address | City/State/Zipcode | Phone Number | | Organization | | | | + + + + + | [facility] | [address] | [place] [address] | | | OF CARE TESTS | [...] (OMNIPAQUE) 350 mg | IV Push | 03/22/20 | 100 mL | | | | iodine/mL injection 100 mL 100 | | 18 3:30 | | | | | mL, intravenous, ONCE, 1 dose, | | PM PDT | | | | | 03/22/18 at 1530 | | | | | | + +---------+ +--------+------+------+ +---+---+ | | | +---+---+ documented in this encounter"
--- OUTSIDE RECORDS SUMMARY | ~2019-11-23 | XMS | Encounter Summary ---
Demographics + + + | Address | [address] | | | [place] [address] | + + + | Home Phone | | + + + | Preferred Language | Unknown | + + + | Marital Status | | + + + | Sabianism Affiliation | CAT | + + + | Race | White | + + + | Ethnic Group | Not or | + + + Author + + + | Author | [facility] | + + + | Organization | [facility] | + + + | Address [...] Team Providers + +------+ + | Care Ed Case Manager Name | Role | Phone | + +------+ + | Christos Olivarez MD | PCP | | + +------+ + Encounter Details +--------+ + + + + | Date | Type | Department | Care Team | Description | +--------+ + + + + | 04/22/ | Clinical | Laboratory at [facility] | | | | 2019 | Support | [address] | | | | | Staff | [place], [place] | | | | | | [address] | | | | | | [phone] | | | +--------+ + + + [...] | + + + + + | [facility] | [address] | [place] [address] | | | SERVICES, CORE | [address]SHLEY [...] + | OL[facility] - AIRPORT - | [address] | [place] [address] | | | [place] | | | | + + + [...] | [facility] | [address] | [place] [address] | | | [facility] | | | | | HEALTH [...] | | | LABORATORY | | | BERMUDIAN | | | SERVICES, | | | [...] | [facility] | [address] | [place] [address] | | | SERVICES, [place] [facility] | | | | | HEALTH [...] [facility] | [address] | [place] [address] | | | SERVICES, JUSTIN | ASHLEY [...] | + + + + + | [facility] | [address] | [place] [address] | | | [place] | ASHLEY [...] CENTER LABORATORY | [address] | [place] [address] | | | SERVICES, CORE | [address] | | | + + + + + LIPASE, PLASMA (04/22/2019 12:50 PM PDT) + +--------+ + + + | Component | Value | Ref Range | Performed | Pathologist | | | | | At | Signature | + +--------+ + + + | LIPASE | 98 (L) | 152 - 353 U/L | [facility] | | | (LAB) | | | [...] | + + + + + | [facility] | [address] | [place] [address] | | | SERVICES, CORE | [address] | | | + + + + + documented in this encounter Visit Diagnoses + + | Diagnosis | + + | 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
--- OUTSIDE RECORDS SUMMARY | ~2019-11-23 | XMS | Encounter Summary ---
Demographics + + + | Address | [address] | | | [place] [address] | + + + | Home Phone | | + + + | Preferred Language | Unknown | + + + | Marital Status | | + + + | Pentecostalism Affiliation | 1041 | + + + | Race | Unknown | + + + | Ethnic Group | Unknown | + + + Author + + + | Author | [facility] | | | and [place] | + + + | Organization | [facility] | | | and [...] Team Providers + +------+ + | Care Lidding Machine Operator Name | Role | Phone [...] [place] | | | | | [address] [place], [place] | [address] | | | | | [address] | | | | | | [phone] | | | +--------+ + + + [...]
--- OUTSIDE RECORDS SUMMARY | ~2019-11-23 | XMS | Encounter Summary ---
Demographics + + + | Address | [address] | | | [place] [address] | + + + | Home Phone [...] Team Providers + +------+ + | Care Hand Sample Maker Name | Role | Phone | + [...] [address] | | | | | Manolo [facility] | Katherine [facility], | | | | | Hospital Admitting | [place] [address] | | | | | Desk Located on the | [phone] | | | | | 9th floor | | | | | | [place], [place] | Adama Morin MD | | | | | [address] | [address] | | | | | | [facility] | | | | | | [place] [address] | | | | | | [phone] | | | | | | | [...]
--- OUTSIDE RECORDS SUMMARY | ~2019-11-23 | XMS | Encounter Summary ---
Demographics + + + | Address | [address] | | | [place] [address] | + + + | Home Phone [...] + + + | Author | [facility] | + + + | Organization | [facility] | + + + | [...] Team Providers + +------+ + | Care Airport Refueling Handler Name | Role | Phone | + +------+ + | Christos Olivarez MD | PCP | | + +------+ + Reason for Visit +--------+ + | Reason | Comments | +--------+ + | Other | flu shot | +--------+ + Encounter Details +--------+ + + + + | Date | Type | Department | Care Team | Description | +--------+ + + + + | 09/10/ | Telephone | Hematology/Medical | Marie Liz, | Other (flu shot ) | | 2018 | | Oncology at Center | [address] | | | | | for Health & Healing | [address] | | | | | [address] | [place] [address] | | | | | Mailcode: [place] | [phone] | | | | | for Health and | | | | | | Healing, [address] | | | | | | [place], [place] | | | | | | [address] | | | | | | [phone] | | | +--------+ + + + [...]
--- OUTSIDE RECORDS SUMMARY | ~2019-11-23 | XMS | Encounter Summary ---
Demographics + + + | Address | [address] | | | [place] [address] | + + + | Home Phone [...] Team Providers + +------+ + | Care Brush Trimming Machine Setter Name | Role | Phone | + +------+ + | Christos Olivarez MD | PCP | | + +------+ + Reason for Visit + + + | Reason | Comments | + + + | Refill Request | ondansetron ODT (ZOFRAN ODT) 4 mg oral tablet,disintegrating | + + + Encounter Details +--------+--------+ + + + | Date | Type | Department | Care Team | Description | +--------+--------+ + + + | 07/09/ | Refill | Hematology/Medical | Krunal Godoy, | Refill Request | | 2019 | | [facility] [place] | ,PhD [address] | (ondansetron ODT | | | | for Health & Healing | [place], [place] | (ZOFRAN ODT) 4 mg | | | | [address] [facility] | [address] | oral | | | | Mailcode: [place] | [phone] | tablet,disintegratin | | | | for Health and | | g) | | | | Healing, [address] | | | | | | [place], [place] | | | | | | [address] | | | | | | [phone] | | | +--------+--------+ + + + [...]
--- OUTSIDE RECORDS SUMMARY | ~2019-11-23 | XMS | Encounter Summary ---
Demographics + + + | Address | [address] | | | [place] [address] | + + + | Home Phone [...] + + + | Author | [facility] | + + + | Organization | [facility] | + + + | [...] Team Providers + +------+ + | Care Automotive Electrician Helper Name | Role | Phone | + +------+ + | Luis Leiva DO | PCP | | + +------+ + Encounter Details +--------+ + + + + | Date | Type | Department | Care Team | Description | +--------+ + + + + | 11/09/ | Hospital | Registration HOV | | | | 2017 | Encounter | [address] | | | | | | [place], | | | | | | [place] [address] | | | +--------+ + + + [...]
--- OUTSIDE RECORDS SUMMARY | ~2019-11-23 | XMS | Encounter Summary ---
Demographics + + + | Address | [address] | | | [place] [address] | + + + | Home Phone [...] Team Providers + +------+ + | Care Steel Turner Name | Role | Phone | + +------+ + | Luis Leiva DO | PCP | | + +------+ + Reason for Visit + + + | Reason | Comments | + + + | Pre-operative | | | evaluation | | + + + Encounter Details +--------+---------+ + + + | Date | Type | Department | Care Team | Description | +--------+---------+ + + + | 04/30/ | Office | Preoperative | Sophia Haque, | Preop examination | | 2018 | Visit | Medicine Clinic at | DNP,ANP [address] | (Primary Dx); | | | | [facility] 4th Floor Day | [address] | Abnormal finding of | | | | Stay [address] | [facility] [place] | blood chemistry | | | | [address] | [address] | | | | | Mailcode: [id number] | [phone] | | | | | [facility] | | | | | | [address] [facility] [place] | | | | | | [address] | | | | | | [phone] | | | +--------+---------+ + + + Anesthesia Record + + + + + | Procedure Name | Responsible | Anesthesia Start | Anesthesia Stop Time | | | Anesthesiologist | Time | | + + + + + | MINIMALLY INVASIVE | Randell Martinez MD | 05/14/18 2480 | 05/14/18 1730 | | LAPAROSCOPIC 3-FIELD | | | | | ESOPHAGECTOMY | | | | | ALYX: RIGHT VATS FOR | | | | | MOBILIZATION OF | | | | | ESOPHAGUS, DIVISION | | | | | OF AZYGOUS VEIN, | | | | | LIGATION OF LEFT | | | | | THORACIC DUCT, LYMPH | | | | | NODE DISSECTION, | | | | | BILATERAL CHEST TUBE | | | | | PLACEMENT, EGD | | | | | JULES/DEMARCO: | | | | | EXPLORATORY | | | | | LAPAROSCOPY, LEFT | | | | | NECK DISSECTION, | | | | | ESOPHAGECTOMY, | | | | | CREATION OF GASTRIC | | | | | CONDUIT, GASTRIC | | | | | PULL-UP WITH PRIMARY | | | | | ANASTOMOSIS IN LEFT | | | | | NECK, WILVER | | | | | MANEUVER, DISSECTION | | | | | OF LEFT GASTRIC | | | | | PEDICLE, HIATAL | | | | | DISSECTION AND | | | | | CLOSURE, | | | | | PYLOROMYOTOMY, | | | | | J-TUBE EXCHANGE (N/A | | | | | Abdomen) | | | | + + + + + +----+---+ + + | Da | T | Event | Comment | | te | i | | | | | m | | | | | e | | | +----+---+ + + | 06 | 0 | | | | /1 | 6 | | | | 9/ | 4 | | | | 20 | 1 | | | | 18 | | | | +----+---+ + + | | 0 | Pt. Check | Prior to anesthesia start, pt. Identified, examined, chart | | | 6 | | reviewed, PARQ held, anesthetic plan made or approved by | | | 4 | | attending anesthesiologist. NPO status confirmed as appropriate | | | 1 | | for procedure Preoperative evaluation: unchanged | +----+---+ + + | | 0 | Eq Check | Anesthesia machine checked Equipment verified | | | 6 | | | | | 5 | | | | | 2 | | | +----+---+ + + | | 0 | Epidural | | | | 6 | Start | | | | 5 | | | | | 2 | | | +----+---+ + + | | 0 | Preprocedur | Pt ID confirmed, informed consent obtained, insertion site | | | 6 | e Checklist | marked, equipment available | | | 5 | | | | | 2 | | | +----+---+ + + | | 0 | Block Pause | | | | 6 | | | | | 5 | | | | | 2 | | | +----+---+ + + | | 0 | Epidural | | | | 7 | Stop | | | | 1 | | | | | 2 | [...] | 3 | | | | | 1 | | | +----+---+ + + | | 0 | ETT | | | | 7 | | | | | 3 | | | | | 7 | | | +----+---+ + + | | 0 | Art Line | | | | 7 | | | | | 5 | | | | | 6 | | | +----+---+ + + | | 0 | Central | | | | 8 | venous line | | | | 0 | | | | | 1 | | | +----+---+ + + | | 0 | Ready | | | | 8 | | | | | 0 | | | | | 3 | | | +----+---+ + + | | 0 | Quick Note | Start EGD | | | 8 | | | | | 0 | | | | | 7 | | | +----+---+ + + | | 0 | An one lung | | | | 8 | vent | | | | 2 | | | | | 9 | | | +----+---+ + + | | 0 | Abx | | | | 8 | Administere | | | | 3 | d | | | | 0 | | | +----+---+ + + | | 0 | Timeout | | | | 8 | | | | | 3 | | | | | 7 | | | +----+---+ + + | | 0 | Incision | | | | 8 | | | | | 3 | | | | | 9 | | | +----+---+ + + | | 0 | Quick Note | Manipulating heart | | | 9 | | | | | 4 | | | | | 1 | | | +----+---+ + + | | 1 | An Two-Lung | | | | 1 | Vent | | | | 0 | | | | | 4 | | | +----+---+ + + | | 1 | AN | | | | 1 | Recruitment | | | | 0 | Breath | | | | 7 | | | +----+---+ + + | | 1 | Quick Note | ETT exchange | | | 1 | | | | | 5 | | | | | 6 | | | +----+---+ + + | | 1 | Quick Note | Arterial line dampening, unsuccessful with power flush and | | | 5 | | repositioning. Will use NIBP. | | | 1 | | | | | 6 | | | +----+---+ + + | | 1 | Surgery end | | | | 7 | | | | | 0 | | | | | 0 | | | +----+---+ + + | | 1 | an stop | | | | 7 | data | | | | 1 | | | | | 5 | | | +----+---+ + + | | 1 | OR to | patient transported to ICU with continuos monitoring, intubated | | | 7 | ICU/Handoff | and ventilated, signout given to ICU team | | | 1 | | | | | 5 | | | +----+---+ + + | | 1 | Anesthesia | | | | 7 | End | | | | 3 | | | | | 0 | | | +----+---+ + + +------+ | Meds | +------+ + + + No medications | on file. | + + + + + | No agents on file. | + + + + | No blood administrations on file. | + + +--------+ + + + | Type | Details | Placement | Removal | +--------+ + + + | Link | 04/10/18; 833; Eleonora Ybarra | 04/10/18833 by | | | g Tube | MD; J-tube; Abdomen UL; 12 | Gurinder Tipton RN | | | | (David); (per [facility] surgery) | | | +--------+ + + + | Incisi | 05/14/18; 1235; MD Demarco; | 05/14/18 1235 by | | | on | umbilical area | Rufino Cavanaugh RN | | +--------+ + + + | Incisi | 05/14/18; 1236; MD Demarco; Left; | 05/14/18 1236 by | | | on | Lower; abdomen | Rufino Cavanaugh RN | | +--------+ + + + | Incisi | 05/14/18; 1237; MD Demarco; Left; | 05/14/18 1237 by | | | on | Upper; abdomen | Rufino Cavanaugh RN | | +--------+ + + + | Incisi | 05/14/18; 1238; MD Demarco; Right; | 05/14/18 1238 by | | | on | Lower; abdomen | Rufino Cavanaugh RN | | +--------+ + + + | Incisi | 05/14/18; 1239; MD Demarco; Right; | 05/14/18 1239 by | | | on | Upper; abdomen | Rufino Cavanaugh RN | | +--------+ + + + | Incisi | 05/14/18; 1240; MD Demarco; | 05/14/18 1240 by | | | on | Midline, Upper; abdomen | Rufino Cavanaugh RN | | +--------+ + + + | Incisi | 05/14/18; 1412; MD Jules; Left; | 05/14/18 1412 by | | | on | neck | Rufino Cavanaugh RN | | +--------+ + + + | Periph | Left; Forearm; 16 g; 05/16/18; | 05/14/18899 by | 05/16/181999 by | | angell | 1999; Per patient/family request | | Lissette Montez, | | IV | | | RN | +--------+ + + + | Epidur | romulo cespedes; Thoracic; 05/20/18; | 05/14/18 09 by | 05/20/18 1030 by | | al | 1030; Catheter damage | | Yuliya Yeung, | | | | | RN | +--------+ + + + | Arteri | Left; Radial; 20g; 05/15/18; | 05/14/18899 by | 05/15/18 1330 by | | al | 1330; Per order | | Priscila Parry RN | | Line | | | | +--------+ + + + | Centra | Right; 7 Fr.; Internal Jugular; | 05/14/18 09 by | 05/17/18 0545 by | | l Line | 05/17/18; 0545; Per order | | Lissette Montez, | | - | | | RN | | Triple | | | | | Lumen | | | | +--------+ + + + | Incisi | 04/10/18; 0832; Midline; abdomen; | 04/10/18 0832 by | 05/14/18 09 by | | on | 05/14/18; 09 | Gurinder Tipton RN | Rufino Cavanaugh RN | +--------+ + + + | Incisi | 04/10/18; 0832; Left; Upper; | 04/10/18 0832 by | 05/14/18 09 by | | on | abdomen; 05/14/18; 09 | Gurinder Tipton RN | Rufino Cavanaugh RN | +--------+ + + + | Incisi | 04/10/18; 1059 (present upon | 04/10/18 1059 by | 05/14/18 09 by | | on | assessment in PACU); Left; | Maritza Leal, | Rufino Cavanaugh RN | | | Lateral; adb- upper quadrant; | RN | | | | 05/14/18; 923 | | | +--------+ + + + | Naso/O | 05/14/18; Speculator jerryp; Right Nare; | 05/14/18 0000 by | 05/17/181744 by | | carole | Miguel Ángel; 05/17/18; 1744; (per | Lissette Montez, | Génesis Fernandes RN | | Tube | [facility] surgery team) | RN | | +--------+ + + + | Periph | 05/14/18; 06; 05/14/18; 923 | 05/14/18608 by Ravi | 05/14/18923 by | | urbano | | Eva Cespedes MD | Rufino Cavanaugh RN | | IV | | | | +--------+ + + + | Periph | 05/14/18; 06; Right; Hand; 20 | 05/14/18628 by | 05/19/18 09 by | | eral | g; 05/19/18; 0900; Other | Eleonora Falcon RN | Rachel Nogueira RN | | IV | (Comment) (leaking) | | | +--------+ + + + | Urethr | 05/14/18; 0755; MARIAJOSE Cavanaugh; | 05/14/18 075 by | 05/17/18655 by | | al | Denys-benson Wilkerson; 16 Fr.; 10 mL; | Rufino Cavanaugh RN | Lissette Montez, | | Cathet | 05/17/18; 0656; Per order | | RN | | er | | | | +--------+ + + + | Incisi | 05/14/18; 08; MD Alyx; Right; | 05/14/18837 by | 05/14/181845 by | | on | Upper; chest; 05/14/18; 1845 | Rufino Cavanaugh RN | Bri Almonte RN | +--------+ + + + | Incisi | 05/14/18; 0845; MD Alyx; Right; | 05/14/18 0845 by | 05/14/181845 by | | on | Lower; chest; 05/14/18; 1845 | Rufino Cavanaugh RN | Bri Almonte RN | +--------+ + + + | Incisi | 05/14/18; 0900; MD Alyx; Right; | 05/14/18 0900 by | 05/14/181845 by | | on | Lateral; chest; 05/14/18; 1845 | Rufino Cavanaugh RN | Bri Almonte RN | +--------+ + + + | Chest | 05/14/18; 1105; MD Alyx; | 05/14/18 1105 by | 05/21/18 0000 by | | Tube | Standard; Right; 28 Fr.; 05/21/18 | Rufino Cavanaugh RN | Yuliya Yeung, | | | | | MARIAJOSE | +--------+ + + + | Chest | 05/14/18; 1135; MD Sera; | 05/14/18 1135 by | 05/17/18 0830 by | | Tube | Standard; Left; 28 Fr.; 05/17/18; | Rufino Cavanaugh RN | Génesis Fernandes RN | | | 0830 | | | +--------+ + + + | Drain | 05/14/18; 1410; MD Jules; CHELLE | 05/14/18 1410 by | 05/17/18 0800 by | | | (10mm); Left; neck; 05/17/18; | Rufino Cavanaugh RN | Génesis Fernandes RN | | | 0800; (per Dr Brumfield) | | | +--------+ + + + documented in [...] + + + | Blood Pressure | 139/88 | 04/30/2018 2:04 PM | | | | | PDT | | + + + + + | Pulse | 79 | 04/30/2018 2:04 PM | | | | | PDT | | + + + + + | Temperature | 36.7 C (98 F) | 04/30/2018 2:04 PM | | | | | PDT | | + + + + + | Respiratory Rate | 16 | 04/30/2018 2:04 PM | | | | | PDT | | + + + + + | Oxygen Saturation | 100% | 04/30/2018 2:04 PM | | | | | PDT | | + + + + + | Inhaled Oxygen | - | - | | | Concentration | | | | + + + + + | Weight | 74.4 kg (164 lb) | 04/30/2018 2:04 PM | | | | | PDT | | + + + + + | Height | 172.7 cm (5' 8") | 04/30/2018 2:04 PM | neck is 41 cm | | | | PDT | | + + + + + | Body Mass Index | 24.94 | 04/30/2018 2:04 PM | | | | | PDT | | + + + + + documented in this encounter Patient Instructions Patient Instructions Sophia Haque DNP,DARA - 04/30/2018 2:05 PM PDT PREOPERATIVE INSTRUCTIONS Empty stomach before surgery On the day BEFORE your surgery, drink plenty of fluids and stay well hydrated NOTHING to eat or drink after midnight the night before surgery. This includes water, coffee, candy, mints, gum. Medications Instructions On the evening before your surgery, take ALL your usual evening medications On the morning of surgery TAKE the following medications with a sip of water: Propranolol On the morning of surgery DO NOT TAKE the following medications: N/A Other medications not specifically mentioned are at your discretion as to taking or not taking on the morning of surgery. Unless otherwise directed by your surgeon, do not take any Aspirin, fish oil supplements , vitamin E or non-steroidal anti-inflammatory (NSAIDs i.e. Advil, Aleve, Ibuprofen) or herb al supplements 7- days prior to your surgery. These drugs may interfere with normal blood cl otting and may cause excessive bleeding and bruising during or after the surgery. If you need a pain medication for general purposes, use Tylenol as directed. OK to take it even on the morning of surgery, if needed. If you are in doubt about any medications that you are taking, please contact our office . Skin preparation to help avoid surgical site infections HIBICLENS GUIDE TO GENERAL SKIN CLEANSING AT HOME BEFORE SURGERY Before you bathe or shower: ? Read the instructions given to you by your healthcare practitioner, and begin your genera l skin cleansing protocol as directed. ? Carefully read all directions on the product label. ? Hibiclens is not to be used on the head or face, keep out of the eyes, ears and mouth. ? Hibiclens is not to be used in the genital area. ? Hibiclens should not be used if you are allergic to chlorhexidine gluconate or any other ingredients in this preparation. *See Hibiclens label for full product information and precautions. When you bathe or shower the night before your surgery: ? If you plan to wash your hair, do so with your regular shampoo. Then rinse hair and body thoroughly to remove any shampoo residue. ? Wash your face with your regular soap or water only. ? Thoroughly rinse your body with warm water from neck down. ? Use Hibiclens as you would any other liquid soap. Please do not put the Hibiclens on a wa sh cloth, apply directly to the skin and wash gently. Apply the minimum amount of Hibiclens necessary to cover the skin. Leave the Hibiclens on your skin for 1 minute, then rinse off. ? Rinse thoroughly with warm water. ? Do not use your regular soap after applying and rinsing Hibiclens. When using Hibiclens for a second day in a row (morning of surgery, as soon as you wake up) : ? Shower/bathe again using Hibiclens in the same method as described above. ? Do not apply any lotions, deodorants, powders or perfumes to the body areas that have been cleaned with Hibiclens. Other Important Guidelines ? Do not shave the surgical area Do not smoke, drink alcohol or use recreational drugs for 24 hours before your surgery Watch for any change in your health condition. Let your surgeon know right away if you do not feel well. ? Do not wear makeup, perfume, lotions, deodorant, powder or hairspray. Do not wear any jewelry to the hospital. Wear loose, comfortable clothing. Leave all your valuables at home. Allow enough travel time so you re not late for your check in for surgery. Please remember to brush your teeth the night before and the morning of your procedure. Smoking You should not smoke for 4 weeks before the procedure and 2 weeks after the procedure. If you are a smoker, please make sure to discuss a plan for managing nicotine withdrawal while in the hospital. Smoking increases the risk of post operative complications because it causes narrowing of b lood vessels, which leads to decreased blood flow to the tissue and therefore poor healing. If you have 3-4 weeks before your planned procedure and wish to quit, we will help you with resources and support. Preventing post op complications while you are in the hospital Use an incentive spirometer or peep breathe to keep your lungs working properly an d to help prevent respiratory complications. It helps you take long, deep breaths. Use it at least once every hour while you are awake. Leg and feet exercises will maintain good circulation and help prevent blood clots in yo ur legs. Sometimes your doctor will order sequential air compression stockings. Compressed air helps the circulation in your legs. Walking and moving will help stimulate normal circulation and deep breathing. After you r surgery, your nurse may ask you to sit, stand or walk. [facility] Surgery Check in Time: The Preoperative Medicine Clinic is not in the position to give you accurate information regarding surgical check in time. We refer you back to your surgical office regarding this important information. Going Home Your surgical team will decide when you are medically ready to go home. If you are released to go home on the same day as your procedure/surgery please note the following: You will not be able to drive. You will be required to have a competent person drive you or accompany you by taxi or pu blic transportation on the day of discharge. It is also recommended that you have a competent person assist you and look after you on the first night after you have undergone regional blocks (72 hours for patients going home with regional block pump), deep sedation, and/or general anesthesia. If you stayed in the hospital after surgery, please arrange for your ride to come for yo u around 9AM on the day your doctor says you can go home. If you have questions or concerns after you go home, call your doctor s office. If it is after office hours, call the [facility] stroboroma operator at [phone] and ask them to page him or h er. documented in this encounter Progress Notes Marin Blanco MA - 04/30/2018 2:05 PM PDTVenipuncture performed in clinic, blood samp le obtained from Left antecubital site Electronically signed by Marin Blanco MA at 03/2018 3:32 PM Sophia Whaley DNP, ANP - 04/30/2018 2:05 PM PDT PREOPERATIVE CONSULT NOTE Author: Sophia Haque DNP,ANP Referring Physician: Juvenal Vicente MD Primary Care Provider: Luis Leiva DO Reason for Consult: Preoperative evaluation and risk assessment Proposed Procedure/Date: laparoscopic possibl eopen 3 field esophagectomy, pyloromyotomy, j -tube exchange - 05/14/2018 HISTORY OF PRESENT ILLNESS: Jacob Sapp is a 67 y.o. male here for preoperative evaluation o f medical problems in anticipation of the above procedure. Pt has dx of Esophageal cancer, stage IIIA. Symptoms related to the diagnosis: with an esophageal adeno carcinomawhkael jewell s diagnosed in 10/2017 after developing dysphagia, melena and weight loss of 20-30 lbs. He h as completed total of 5 chemo and 35 radiation as of 01/30/2018. He reports doing well and ready for an upcoming surgery. Pertinent medical problems discussed during this visit: Cardiac Cath From [facility] (08/12/2008) - [id number]-wu-[id number] 2-vessel CAD (mo derate to LAD and CX but very small branch). Medical treatment was recommended - he was renny ing aspirin + statin + BB - He reports aspirin has been held since December per oncology rec ommendation during his chemo/radiation therapy. LBBB - known for years and stable. Tremor - well controlled with propranolol Hyperlipidemia - on Lovastatin daily HTN - controlled with BB Propranolol Former nicotine user: stopped chewing tobacco 5 months ago. History of JOURDAN: reports no longer requiring CPAP since 70 lb weight loss. He reports no longer JOURDAN Depression: recently started Cymbalta. Notices improvement. Perioperative cardiac risks: CAD Yes - small 2- vessel and stable with medical therapy. Asymptomatic with good MET > 4 CHF no CVA no CKD with creatinine >2 no DM treated with insulin no Functional Capacity: Moderate (4-10 mets) - He states "just walked 2-flight up exercise" fr om the previous clinic. He denies experiencing chest pain, chest discomfort, palpitation, S OB, BEEBE, PND, lightheadedness, dizziness, near syncope or syncope. He reports living in a ho use with 2-floors and walks up and down several times a day. He reports able to walk 3 laps on a trackfield (3/4 mile) without difficulty. Prior complications of anesthesia: none ROS: HPI: Prior Anesthetic Problems: No Pulmonary: Within Defined Limits except as noted below no shortness of breath no cough no stridor no wheezing no rhinorrhea no sputum no pneumothorax no Recent Respiratory Infection Pt . Has no asthma no COPD No dx of sleep apnea Cardiovascular: Within Defined Limits except as noted below Functional Capacity: Moderate - cyanosis, palpitations and syncope negative for pulmonary HTN no PAD no chest pain n o CHF no hypertension no CAD Sx no valvular problems/murmurs -congenital heart disease no arrhythmia no Cardiac assist devices no pacemaker/ICD GI/Hepatic: Within Defined Limits except as noted below no GI Bleed GERD Control: well controlled n o liver disease no hepatitis Renal: Within Defined Limits except as noted below no renal failure no electrolyte abnormalities no dialysis Urology/Roll Tester: Within Defined Limits except as noted below no Urologic Conditions Endo: Within Defined Limits except as noted below no Diabetes: no Endocrine Other no Hx Cortico steroid Use Neuro/Psych: Within Defined limits except as noted below No Head Conditions No Neurologic Development c onditions No Spine Conditions No Neuromuscular Conditions no Psych Disorder no pain Musculoskeletal: no arthritis No Muscular Disorders Heme/Onc: Within Defined Limits except as noted below Pt. has: no active bleeding no bleeding disord er No clotting disorders No hemoglobin disorders no malignancy Infectious Disease: Within Defined Limits except as noted below no MRSA no VRE no clostridium difficile no HIV /AIDS no tuberculosis Skin: Integumentary system within defined limits no open wounds No active skin infections no ski n conditions AutoImmune Disorders: No autoimmune disorders Current medications reviewed / updated Current Outpatient Prescriptions Medication Sig CYCLOBENZAPRINE HCL (CYCLOBENZAPRINE ORAL) Take by mouth three times daily as needed fo r muscle spasms (neck). Do not use longer than 2-3 weeks. Indications: neck spasms HYDROcodone-acetaminophen 5-325 mg oral tablet Take 1 tablet by mouth every four hours as needed. LORazepam 1 mg oral tablet Take 1 mg by mouth as needed for anxiety (and sleep). LOVASTATIN ORAL Take by mouth. omeprazole 10 mg oral capsule,delayed release(DR/EC) Take 10 mg by mouth once daily. oxyCODONE (immediate release) 5 mg oral tablet Take 1 to 2 tablets by mouth every six h ours as needed. propranolol ER (INDERAL LA) 60 mg oral capsule,extended release 24 hr Take 60 mg by presley th once daily. Level of confidence in medication reconciliation accuracy: High Allergies reviewed / updated Allergies Allergen Reactions Codeine Unknown Past medical history reviewed / updated Past Medical History: Diagnosis Date Cervical spinal stenosis Coronary artery disease 2007 diagnosed on angiogram when experienced chest pain - treated with medications, pain attrib uted to esophageal spasm, never had MT or stent Diverticulosis GERD without esophagitis Hernia, hiatal Hyperlipidemia LBBB (left bundle branch block) Malignant neoplasm (HCC) stomach cancer Sleep apnea no longer using CPAP since weight loss and not snoring any more Past surgery reviewed / updated Past Surgical History Procedure Laterality Date Cholecystectomy 1974 Vasectomy Appendectomy 1961 Incisional hernia repair at appy site repaired x 5 Laparoscopic placement of jejunostomy feeding tube 12/13/2017 Family history reviewed / updated Social history reviewed / updated Social History Substance Use Topics Smoking status: Former Smoker Quit date: 12/15/1989 Smokeless tobacco: Former User Types: Chew Quit date: 01/17/2018 Alcohol use 0.6 oz/week 1 Glasses of wine per week PHYSICAL EXAM: Last Vitals: BP 139/88 | Pulse 79 | Temp (Src) 36.7 C (98 F) (Oral) | RR 16 | Ht 1.727 m (5' 8") | Wt 74.4 kg (164 lb) | SpO2 100% | BMI 24.94 kg/(m^2) Body mass index is 24.94 kg /m. General: Appearance: No distress and Smiling LOC: Alert Arousability: Arouses to verbal stimuli HEENT: Normocephalic/Atraumatic Airway: Dentition: dentition is normal Mallampati: 3 Mouth Opening: > 3 cm TM Distance:> 6 cm Carvalho: Yes C-Spine ROM: Normal Neck Anatomy: Normal Jaw Protrusion: Normal (lower incisors go above upper incisors) Pulmonary: Respiratory: pulmonary exam normal Breath Sounds: breath sounds normal Cardiovascular: Rhythm: Regular Rate: Normal Abdomen: General: Normal Body Habitus: normal Bowel Sounds: bowel sounds are normal Musculoskeletal: Range of Motion: Normal range of motion Neuro/Psych: Affect: Normal Cognitive Status: Normal Speech: Normal speech Strength: Normal Muscle Tone: Normal Movement: Normal Gait Station: Normal Sensation: Norm al to light touch Skin: Color: skin color normal Texture: Normal Temperature: Warm Other Implanted Devices: Implanted devices: None LABS & DATA REVIEWED/ORDERED Lab Results Component Value Date WBC 4.54 04/30/2018 HB 10.8 04/30/2018 HCT 31.2 04/30/2018 PLT 179 04/30/2018 MCV 98.4 04/30/2018 RDW 47.6 04/30/2018 Lab Results Component Value Date NA 142 04/09/2018 K 4.3 04/09/2018 CL 109 04/09/2018 BICARB 28 04/09/2018 BUN 10 04/09/2018 CR 0.80 04/09/2018 GLU 121 04/09/2018 CA 9.0 04/09/2018 AST 26 04/09/2018 ALT 19 04/09/2018 AP 88 04/09/2018 TBILI 0.5 04/09/2018 TP 6.6 04/09/2018 ALB 3.2 04/09/2018 Lab Results Component Value Date ABO B 04/30/2018 RH Negative 04/30/2018 No results found for: A1C 12-lead ECG (Personally Reviewed) (04/09/2018) Sinus bradycardia with LBBB at 49 bpm, ESTELLE 140ms, QRS 148ms, QTC 470 ms, Outside records reviewed from [facility] and "media" tab. Findings pertinent to this pr eoperative visit are as follows: CORONARY ANGIOGRAPHY (08/12/2008) - From [facility] The coronary system was right dominant. 1. The left main bifurcated into the left anterior descending (LAD) coronary artery and lef t circumflex. Left main artery was free of disease. 2. Left anterior descending artery has what appears to be a moderate lesion in the proximal segment. The rest of the vessel was free of disease. The diagonal branch was free of signif icant disease. 3. Left circumflex coronary artery has a 30% proximal stenosis. It gave rise to 1 significa nt marginal branch which was free of disease. The circumflex then continued into a very smal l branch, which was severely diseased. The vessel diameter is barely 1 mm. 4. The right coronary artery was a large, dominant vessel and free of disease. CONCLUSION/RECOMMENDATIONS 1. Regn-[id number] 2-vessel coronary artery disease except for a terminal circumflex which was a very small vessel. 2. Normal left ventricular systolic function. 3. Recommend medical therapy. Perioperative risk calculators 2014 ACC/AHA Perioperative Cardiac Risk Stratification (assumes non-emergent, non-cardiac p rocedure) Are active cardiac conditions present? No Calculate the combined surgical and patient-specific risk: using the [place] perioperative ca rdiac risk calculator, the risk of major adverse cardiac event (MACE) is: less than 1% (0.3% ). No further risk stratification for coronary disease is indicated. Estimated ASA class 3 Other perioperative risk calculators: NSQQIP Surgical Risk Calculator: http://riskcalculator.facs.org/RiskCalculator/PatientInfo. jsp ASSESSMENT and RECOMMENDATIONS: Perioperative risk assessment: In summary, Jacob Sapp is a very pleasant 67 y.o. male with diagnosis of Esophageal cancer, stage IIIA, scheduled for laparoscopic possibl eopen 3 field esophagectomy, pyloromyotomy, j-tube exchange. Based on the clinical information obt ained and reviewed during this visit, the overall assessment is that the patient is having e lective major surgery with identified risk factors. The patient is stable / optimized for surgery. Additional testing/optimization is not needed. Medication management recommendations: The patient was advised to continue all usual med ications except as noted in Patient Instructions (After Visit Summary given to pt) Pre-procedure antibiotic recommendation: Per standard protocol. 2-vessel CAD (08/12/2008) - moderate to LAD and CX but very small branch): hemodynamica lly stable and no recent angina symptoms. He has good > 4 MET. He is stable LBBB - known for years and stable. Tremor - well controlled with propranolol and stable. Hyperlipidemia - on Lovastatin daily HTN - controlled with BB Propranolol - advised to continue with BB throughout the periop erative phase. Former nicotine user: stopped chewing tobacco 6 months ago. Quit smoking years ago. History of JOURDAN: reports no longer requiring CPAP since 70 lb weight loss. He reports no longer JOURDAN Depression: recently started Cymbalta. Notices improvement. He and his family memeber appeared to understand the whole discussion and verbalized that a ll of their questions were answered to satisfaction. Thank you for the opportunity to contribute to this patient's care. Sophia Haque DNP,[facility] 4TH FLOOR DAY STAY [address] [place] [address] I spent time (45 minutes, >50% of the visit) counseling the pt regarding perioperative risk (cardiac/bleeding/ DVT/ respiratory failure/ infection, etc) and methods to mitigate risk. I advised the patient regarding NPO requirements, hydration before surgery, showering, gen eral body hygiene. All pre-procedure instructions given to the patient (after-visit summary ). All of patient's questions were addressed. The patient verbalized understanding of the instructions given. documented in this encounter Plan of Treatment + + +--------+ + + | Name | Type | Priori | Associated Diagnoses | Order Schedule | | | | ty | | | + + +--------+ + + | COMMUNICATION TO [facility] | Procedures | Routin | Preop examination | Ordered: 04/30/2018 | | LAB DRAW | | e | | | + + +--------+ + + | 12 LEAD ECG | ECG | Routin | Preop examination | Ordered: 04/30/2018 | | | | e | | | + + +--------+ + + documented as of this encounter Procedures + +--------+ + + + | Procedure Name | Priori | Date/Time | Associated Diagnosis | Comments | | | ty | | | | + +--------+ + + + | [place] COLLECTION VENOUS | Routin | 04/30/2018 | Preop examination | | | BLOOD,VENIPUNCTURE | e | 2:16 PM | | | | | | PDT | | | + +--------+ + + + | CBC AND AUTO DIFF | Routin | 04/30/2018 | Preop examination | Results for this | | | e | 2:15 PM | | procedure are in the | | | | PDT | | results section. | + +--------+ + + + | CBC, WITH | Routin | 04/30/2018 | Preop examination | Results for this | | DIFFERENTIAL | e | 2:15 PM | | procedure are in the | | | | PDT | | results section. | + +--------+ + + + | COMPLETE METABOLIC | Routin | 04/30/2018 | Preop examination | Results for this | | SET | e | 2:15 PM | | procedure are in the | | (NA,K,CL,CO2,BUN,CRE | | PDT | | results section. | | AT,GLUC,CA,AST,ALT,B | | | | | | AISSATOU TOTAL,ALK | | | | | | PHOS,ALB,PROT TOTAL) | | | | | + +--------+ + + + | ANTIBODY SCREEN | Routin | 04/30/2018 | Preop examination | Results for this | | | e | 2:15 PM | | procedure are in the | | | | PDT | | results section. | + +--------+ + + + | TYPE AND SCREEN | Routin | 04/30/2018 | Preop examination | Results for this | | | e | 2:15 PM | | procedure are in the | | | | PDT | | results section. | + +--------+ + + + | ABO & RH TYPE | Routin | 04/30/2018 | Preop examination | Results for this | | | e | 2:15 PM | | procedure are in the | | | | PDT | | results section. | + +--------+ + + + | HEMOGLOBIN A1C, | Routin | 04/30/2018 | Abnormal finding | Results for this | | BLOOD | e | 2:15 PM | of blood chemistry | procedure are in the | | | | PDT | Preop examination | results section. | + +--------+ + + + documented in this encounter Results CBC AND AUTO DIFF (04/30/2018 2:15 PM PDT) + + + + + + | Component | Value | Ref Range | Performed | Pathologist | | | | | At | Signature | + + + + + + | WHITE CELL | 4.54 | 3.50 - 10.80 | [facility] | | | COUNT | | K/cu mm | LABORATORY | | | | | | SERVICES, | | | | | | CORE | | + + + + + + | RED CELL | 3.17 (L) | 4.50 - 6.00 | [facility] | | | COUNT | | M/cu mm | LABORATORY | | | | | | SERVICES, | | | | | | CORE | | + + + + + + | HEMOGLOBIN | 10.8 (L) | 13.5 - 17.5 | [facility] | | | | | g/dL | LABORATORY | | | | | | SERVICES, | | | | | | CORE | | + + + + + + | HEMATOCRIT | 31.2 (L) | 41.0 - 53.0 % | [...] + + + + | PLATELET | 179 | 150 - 400 K/cu | [facility] [...] + + + + | NEUTROPHIL | 58.0 | 50.0 - 70.0 % | [facility] | | | % | | | LABORATORY | | | | | | SERVICES, | | | | | | CORE | | + + + + + + | LYMPHOCYTE | 30.8 | 18.0 - 42.0 % | [facility] | | | % | | | LABORATORY | | | | | | SERVICES, | | | | | | CORE | | + + + + + + | MONOCYTE % | 8.8 | 3.5 - 9.0 % | [facility] | | | | | | LABORATORY | | | | | | SERVICES, | | | | | | CORE | | + + + + + + | EOS % | 1.8 | 1.0 - 3.0 % | [facility] | | | | | | LABORATORY | | | | | | SERVICES, | | | | | | CORE | | + + + + + + | BASO % | 0.4 | 0.0 - 2.0 % | [facility] [...] | | | shift. Immature | | CORE | | | | granulocytes (IG) are an | | | | | | automated count of | | | | | | metamyelocytes, | | [...] + + + + | LYMPHOCYTE | 1.40 | 1.00 - 4.80 | [facility] | | | # | | K/cu mm | LABORATORY | | | | | | SERVICES, | | | | | | CORE | | + + + + + + | MONOCYTE # | 0.40 | 0.10 - 0.90 | [facility] | | | | | K/cu mm | LABORATORY | | | | | | SERVICES, | | | | | | CORE | | + + + + + + | EOS # | 0.08 | 0.00 - 0.50 | [facility] | [...] IG# effective | [facility] | | 04/04/2018 Increased immature granulocytes (IG) define a left shift. | LABORATORY | | Immature granulocytes (IG) are an automated count of metamyelocytes, | SERVICES, CORE | | myelocytes and promyelocytes. Bands are not included in the IG count. | | | Bands are included in the neutrophil count. | | + + + + + + + + | Performing | Address | City/State/Zipcode | Phone Number | | Organization | | | | + + + + + | [facility] | [address] | [place] [address] | | | SERVICES, CORE | [address] | | | + + + + + ANTIBODY SCREEN (04/30/2018 2:15 PM PDT) + + + + + + | Component | Value | Ref Range | Performed | Pathologist | | | | | At | Signature | + + + + + + | Antibody | Negative | | [facility] | | | Screen | | | LABORATORY | | | | | | SERVICES, | | | | | | TRANSFUSION | | | | | | MEDICINE | | + + + + + + + + | Specimen | + + | Blood - Blood | | (substance) | + + + + + + + | Performing | Address | City/State/Zipcode | Phone Number | | Organization | | | | + + + + + | [facility] | [address] | [place] [address] | | | SERVICES, | [address] | | | | TRANSFUSION MEDICINE | | | | + + + + + ABO & RH TYPE (04/30/2018 2:15 PM PDT) + + + + + + | Component | Value | Ref Range | Performed | Pathologist | | | | | At | Signature | + + + + + + | ABO Group | B | | [facility] | | | | | | LABORATORY | | | | | | SERVICES, | | | | | | TRANSFUSION | | | | | | MEDICINE | | + + + + + + | Rh Type | Negative | | [facility] | | | | | | LABORATORY | | | | | | SERVICES, | | | | | | TRANSFUSION | | | | | | MEDICINE | | + + + + + + + + | Specimen | + + | Blood - Blood | | (substance) | + + + + + + + | Performing | Address | City/State/Zipcode | Phone Number | | Organization | | | | + + + + + | [facility] [employer] | [address] | [place] [address] | | | SERVICES, | [address] | | | | TRANSFUSION MEDICINE | | | | + + + + + HEMOGLOBIN A1C, BLOOD (04/30/2018 2:15 PM PDT) + + + + + + | Component | Value | Ref Range | Performed | Pathologist | | | | | At | Signature | + + + + + + | HEMOGLOBIN | 4.3Comment: Hgb A1C | <5.7 % | [facility] | | | A1C | Interpretive | | LABORATORY | | | | Information: | | SERVICES, | | | | <5.7% - Normal | | SPECIAL IMM | | | | 5.7-6.4% - Consistent | | + [facility] | | | | with pre-diabetes | | | | | | >6.4% - Consistent | | | | | | with diabetes | | | | | | | | | | + + + + + + + + | Specimen | + + | Blood - Blood | | (substance) | + + + + + | Narrative | Performed At | + + + | Alternate forms of testing such as fructosamine should be | [facility] | | considered for monitoring terminal system operator glycemic control in patients with: | LABORATORY | | Increased red cell turnover, certain hemoglobinopathies (e.g., HbS, | SERVICES, | | HbE, HbC and thalassemia syndromes), anemias, blood loss, chronic | SPECIAL IMM + | | liver disease and hemochromatosis (artefactually low HbA1c); iron | [facility] | | deficiency anemia (artefactually high HbA1c due to enhanced glycation | | | of hemoglobin). Alternate forms of testing such as | | | fructosamine should be considered for monitoring mcc glycemic | | | control in patients with: Increased red cell turnover, certain | | | hemoglobinopathies (e.g., HbS, HbE, HbC and thalassemia syndromes), | | | anemias, blood loss, chronic liver disease and hemochromatosis | | | (artefactually low HbA1c); iron deficiency anemia (artefactually high | | | HbA1c due to enhanced glycation of hemoglobin). | | + + + + + + + + | Performing | Address | City/State/Zipcode | Phone Number | | Organization | | | | + + + + + | [facility] | [address] | [place] [address] | | | SERVICES, SPECIAL | [address] | | | | IMM + [place] | | | | + + + + + COMPLETE METABOLIC SET (NA,K,CL,CO2,BUN,CREAT,GLUC,CA,AST,ALT,BILI TOTAL,ALK PHOS,ALB,PROT TOTAL) (04/30/2018 2:15 PM PDT) + +---------+ + + + | Component | Value | Ref Range | Performed | Pathologist | | | | | At | Signature | + +---------+ + + + | GLUCOSE, | 129 (H) | 70 - 99 [...] | | | LABORATORY | | | [place] | | | SERVICES, | | | | | | CORE | | + +---------+ + + + | EGFR NON | >60 | >60 mL/min | [facility] | | | -[place] | | | LABORATORY | | | RICAN | | | SERVICES, | | | | | | CORE | | + +---------+ + + + | SODIUM, | 139 | 136 - 145 | [facility] | [...] +---------+ + + + | CHLORIDE, | 108 | 97 - 108 mmol/L | [facility] | | | PLASMA | | | LABORATORY | | | (LAB) | | | SERVICES, | | | | | | CORE | | + +---------+ + + + | TOTAL CO2, | 22 | 21 - 32 mmol/L | [facility] | | | PLASMA | | | LABORATORY | | | (LAB) | | | SERVICES, | | | | | | CORE | | + +---------+ + + + | CALCIUM, | 8.6 | 8.6 - 10.2 | [facility] | | | PLASMA | | mg/dL | LABORATORY | | | (LAB) | | | SERVICES, | | | | | | CORE | | + +---------+ + + + | CALCIUM(ALB | 9.1 | 8.6 - 10.2 | [...] + + + | ALK PHOS | 102 | 56 - 119 U/L | [facility] | | | | | | LABORATORY | | | | | | SERVICES, | | | | | | CORE | | + +---------+ + + + | AST(SGOT) | 28 | <=41 U/L | [facility] | | | | | | LABORATORY | | | | | | SERVICES, | | | | | | CORE | | + +---------+ + + + | ALT (SGPT) | 29 | <=60 U/L | [facility] | | | | | | LABORATORY | | | | | | SERVICES, | | | | | | CORE | | + +---------+ + + + | ANION GAP | 9 | 4 - 11 mmol/L | [facility] | | | | | | LABORATORY | | | | | | SERVICES, | | | | | | CORE | | + +---------+ + + + | ANION | 10 [...] [facility] | [address] | [place] [address] | | | SERVICES, JUSTIN | [address] | | | + + + + + documented in this encounter Visit Diagnoses + + | Diagnosis | + + | Preop examination - Primary Preoperative examination, unspecified | + + | Abnormal finding of blood chemistry Other abnormal blood chemistry | + + documented in this encounter
--- OUTSIDE RECORDS SUMMARY | ~2019-11-23 | XMS | Encounter Summary ---
Demographics + + + | Address | [address] | | | [place] [address] | + + + | Home Phone | | + + + | Preferred Language | Unknown | + + + | Marital Status | | + + + | Muslim Affiliation | CAT | + + + [...] Team Providers + +------+ + | Care Electrocardiograph Operator Name | Role | Phone | [...] | Oncology | Malignant | Cony | [address] | | | | | neoplasm of | MD [address] | [address] | | | | | lower third | Deion Mckeon | Katherine French | | | | | of esophagus | Katherine French | Mailcode: | | | | | ([facility]) | [place], [place] | [address] | | | | | Procedures | [address] | [place] | | | | | SIMULATION | Phone: | Hospital | | | | | IMAGING | [phone] | [facility] | | | | | | Fax: | [place], [place] | | | | | | [phone] | [address] | | | | | | | Phone: | | | | | | | [phone] | | | | | | | Fax: | | | | | | | [phone] | +--------+--------+ + + + + Reason for Visit + + + | Reason | Comments | + + + | Consultation | | + + + Consultation (Routine) +--------+--------+ + + + + | Status | Reason | Specialty | Diagnoses / | Referred By | Referred To | | | | | Procedures | Contact | Contact | +--------+--------+ + + + + | Closed | | Radiation | Diagnoses | João, | Catarino, | | | | Oncology | Malignant | MD Daija | Krunal Dudley MD | | | | | neoplasm of | [address] | [address] | | | | | lower third | [facility] | [address] | | | | | of esophagus | Hospital | Rd | | | | | Esophagus | Road | [place], [place] | | | | | [place] | [place] | [address] | | | | | Procedures | [address] | Phone: | | | | | Consult, | Phone: | [phone] | | | | | Treat, F/U | [phone] | Fax: | | | | | | Fax: | [phone] | | | | | | [phone] | | +--------+--------+ + + + + Encounter Details +--------+---------+ + + + | Date | Type | Department | Care Team | Description | +--------+---------+ + + + | 12/06/ | Office | Radiation Oncology | Daniel Barrera, | Malignant neoplasm | | 2018 | Visit | at [facility] [address] | [address] | of lower third of | | | | [address] | [address] | esophagus (HCC) | | | | [id number] [facility] | [place], [place] | (Primary Dx) | | | | [facility], | [address] | | | | | [place] [address] | [phone] | | | | | [phone] | | | +--------+---------+ + + + [...] + + + | Blood Pressure | 113/70 | 12/06/2017 10:48 AM | | | | | PST | | + + + + + | Pulse | 74 | 12/06/2017 10:48 AM | | | | | PST | | + + + + + | Temperature | 37 C (98.6 F) | 12/06/2017 10:48 AM | | | | | PST | | + + + + + | Respiratory Rate | 14 | 12/06/2017 10:48 AM | | | | | PST | | + + + + + | Oxygen Saturation | 98% | 12/06/2017 10:48 AM | | | | | PST | | + + + + + | Inhaled Oxygen | - | - | | | Concentration | | | | + + + + + | Weight | 97.7 kg (215 lb 4.8 | 12/06/2017 10:48 AM | | | | oz) | PST | | + + + + + | Height | 172.7 cm (5' 8") | 12/06/2017 10:48 AM | | | | | PST | | + + + + + | Body Mass Index | 32.74 | 12/06/2017 10:48 AM | | | | | PST | | + + + + + documented in this encounter Progress Notes Daniel Barrera MD - 12/06/2017 10:30 AM PSTI saw and examined Mr. Sapp with Dr. Lopez and agree with her assessment and plan. He has locally advanced esophageal cancer and is a tri-modality candidate. We will treat his tumor pre-operatively to 41.4 - 50.4 Gy with concurrent carbo/taxol. Prior to proceeding with simulation, we will ask Surgery to place a J-tube given significan t dysphagia to liquids. Daniel Barrera MD Dept of Radiation Medicine [facility] [place] pril Mata MA - 12/06/2017 10:30 AM PSTNursing documentation: Pt here for a consultation visit with Dr. Sanchez regarding radiation treatment options. Pt a lert, oriented, and ambulatory with a steady gait Pt oriented to clinic and reviewed the Introduction to the [facility] Radiation Oncology Departme nt pt information handout. Pt verbalizes understanding. Patient does not have an Advanced Directive. Provided information regarding advanced care planning and informed patient that we have a social worker psychiatric who can assist if patient is interested in completing this documentation. Requested patient bring a copy of their Advanced Directive to their next Radiation Oncolog y appointment. 8 minutes was spent in face to face discussion and teaching with the patient. Cony Newton - 10:30 AM PST RADIATION ONCOLOGY CONSULTATION CA ID: [id number] Requesting Physician: Dr. Daija Moyer MD ID: Con L Senait is a 67 year old man with Stage HERMELINDO [id number] esophageal adenocarcinoma (7 LN) 36-44cm from the incisors, 2.4cm thick. HPI: The patient initially presented to [facility] with 2 weeks of progressive weakne ss, a 30lb weight loss over 5 months, and melena. He was found to be anemic (Hct 9) and was given IVF and 2U PRBC. Work-up identified an esophageal mass found to be an adenocarcinoma . Brief overview: 09/2017 - presents with weakness, melena, and unintentional weight loss 10/21/17 - EGD: mass in cardia; pathology: well differentiated invasive adenocarcinoma with possible LVSI 10/21/17 - CT CAP: 2.8x3cm ulcer vs mass in the epigastrum 11/07/17 - PET: distal esophagus maxSUV 7.8, mediastinal LN maxSUV 1.9, paraesophageal LN m axSUV 2, gastrohepatic LN maxSUV 2.7, and supraceliac regions maxSUV 3.4 11/07/17 - PFTs: Normal pulmonary function with no limitations 11/08/17 - saw Dr. Moyer who felt he was a surgical candidate and Dr. Moon who recommen ded chemoRT either definitive or neoadjuvant, plan to discuss at tumor board 11/14/17 - EUS: fungating and ulcerating mass with bleeding in the lower third of the esoph mika extending distally into the cardia, 36 to 44 cm from the incisors, non-obstructing, at least 2/3 circumferential, and 24mm thick. There 2 abnormal lymph nodes in the gastrohepati c ligament, 3 enlarged lymph nodes in the celiac region, and 2 abnormal lymph nodes in the lower paraesophageal mediastinum. 12/04/17 - saw Dr Ortez who was in agreement with neoadjuvant RETIREMENT ASSISTANT and resection pending tumo r board conversation; was in agreement with a J tube Today he is here with his . He cannot eat solid foods, but is able to have liquids and softs with some difficulty. He denies pain with swallowing and hematemesis. His bowel mov ements are inconsistent, sometimes constipated and sometimes not. Denies melena and hematoc hezia. He tells me he lost a total of 25-30lbs over a 5 month period unintentionally. His energy comes and goes; he feels he fatigues more easily now. He has a history of significan t GERD for which he has been on Prilosec for years. No prior EGD. FAMILY HISTORY: Denies family history of cancer SOCIAL HISTORY: Social History Social History Marital status: Spouse name: N/A Number of children: N/A Years of education: N/A Social History Main Topics Smoking status: Former Smoker Quit date: 12/15/1989 Smokeless tobacco: Current User Types: Chew Alcohol use 0.6 oz/week 1 Glasses of wine per week Drug use: No Comment: CBD oil Sexual activity: Not on file Other Topics Concern Not on file Social History Narrative No narrative on file lives in [place] with his . 3 children. 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 LOVASTATIN ORAL Take by mouth. multivitamin oral tablet Take 1 tablet by mouth once daily. omeprazole 10 mg oral capsule,delayed release(DR/EC) Take 10 mg by mouth once daily. propranolol ER (INDERAL LA) 60 mg oral capsule,extended release 24 hr Take 60 mg by presley th once daily. No current facility-administered medications for this visit. REVIEW OF SYSTEMS: I personally reviewed the [facility] Radiation Oncology Questionnaire with the patient. It is neg ative except as noted in the HPI, exam, PMH and PSH. PHYSICAL EXAM: Vitals: BP 113/70 | Pulse 74 | Temp 37 C (98.6 F) | RR 14 | Ht 1.727 m (5' 8") | Wt 97. 7 kg (215 lb 4.8 oz) | SpO2 98% | BMI 32.74 kg/(m^2) Pain Score: 0 KARNOFSKY: 80% ECOG PERFORMANCE STATUS: 1= Restricted in physically strenuous activity but ambulatory and able to carry out work of a light or sedentary nature, e.g., light house work, office work GEN: Well developed adult man in NAD, appears stated age HEENT: Oropharynx clear. MMM. EOMI, PERRL LYMPH:No cervical or supraclavicular adenopathy CV: Regular rate, distant heart sounds PULM: CTAB GI: Srotund, grossly unremarkable MSK: no edema. NEURO: Alert and oriented to time/place/situation. Non-focal. PSYCH: mood and affect appropriate LABORATORY: IMAGIN11/14/17 EUS Findings: Endoscopic Finding : A large, fungating and ulcerating mass with bleeding was found in the lower third of the esophagus extending distally into the cardia, 36 to 44 cm from the incisors (the GEJ was at 40 cm from the incisors). The mass was non-obstructing and circumferential. The exam of the stomach was otherwise normal. The examined duodenum was normal. Endosonographic Finding : A hypoechoic mass was found in the llower third of the esophagus, extending into the cardia. The mass was encountered at 36 cm from the incisors and extended to 44 cm. The lesion was partially circumferential (involving two-thirds of the lumen circumference). The endosonographic borders were irregular. The mass measured up to 24 mm in thickness. There was sonographic evidence suggesting invasion into the adventitia (Layer 5). Two abnormal lymph nodes were visualized in the gastrohepatic ligament (level 18) with the ultrasound probe located 40 cm from the incisors. The largest measured 12 mm in maximal cross-sectional diameter. The nodes were round, hypoechoic and had well defined margins. Three enlarged lymph nodes were visualized in the celiac region (level 20) with the ultrasound probe located 42 cm from the incisors. The largest measured 22 mm by 14 mm in maximal cross-sectional diameter. The nodes were round, hypoechoic and had well defined margins. Two abnormal lymph nodes were visualized in the lower paraesophageal mediastinum (level 8L) with the ultrasound probe located 36 cm from the incisors. The largest measured 9 mm by 8 mm in maximal cross-sectional diameter. The nodes were round, hypoechoic and had well defined margins. Impression: - Adenocarcinoma of the gastroesophageal junction extending into the distal esophagus and cardia (Siewert II). This was staged T3 N3 Mx by endosonographic criteria. - Two abnormal lymph nodes were visualized in the gastrohepatic ligament (level 18), three enlarged lymph nodes were visualized in the celiac region (level 20), and two abnormal lymph nodes were visualized in the lower paraesophageal mediastinum (level 8L). 11/07/17 PET PATHOLOGY: 10/21/17 REVIEW OF OUTSIDE PATHOLOGY ASSESSMENT: Jacob Sapp is a 67 y.o. man with Stage HERMELINDO [id number] esophageal adenocarcinoma (7 LN) 36-44cm from the incisors, 2.4cm thick. A Cross trial treatment has been recommended (neoadjuvant RETIREMENT ASSISTANT then resection). We agree wi th this plan as the Cross Trial showed more R0 resections (92% vs 69% p<0.001) and increased overall survival (49.4mo vs 24mo p = 0.003) in the RETIREMENT ASSISTANT with surgery group vs surgery alone without an increase in postoperative complications. In this trial, neoadjuvant RETIREMENT ASSISTANT consiste d of 41.4Gy in 23 fractions to gross tumor and at risk areas with concurrent Carboplatin and Paclitaxel. (Ravi et al. Preoperative Chemoradiotherapy for Esophageal or Junction Canc er, NEJM 2012). The risks and benefits of radiation therapy were discussed in detail with the patient. Side effects included but were not limited to fatigue, skin erythema, N/V, esophagitis, dysphagi a, lung damage, skin thickening, and secondary malignancy. The patient expressed an underst anding of these risks and has agreed to proceed with the proposed treatment. Informed conse nt was obtained. Prior to simulation, he will have a J tube placed. We will schedule simulation for after t his with radiation to start about a week after. PLAN: 1) [facility]) [facility] 3) RETIREMENT ASSISTANT per Cross Trial - RT with concurrent carbo/taxel This patient was seen, examined, and discussed with my attending, Dr. Barrera who agree s with this assessment and plan. Cony LOPEZ Dept of Radiation Medicine [facility] [place] documented in this enco unter Plan of Treatment Not on filedocumented as of this encounter Procedures + +--------+ + + + | Procedure Name | Priori | Date/Time | Associated Diagnosis | Comments | | | ty | | | | + +--------+ + + + | PROCEDURE NOTE | Routin | 02/12/2019 | | Results for this | | | e | 12:58 PM | | procedure are in the | | | | PDT | | results section. | + +--------+ + + + documented in this encounter Results PROCEDURE NOTE (02/12/2019 12:58 PM PDT)SIMULATION IMAGING (12/14/2017 8:13 AM PST) + + [...]
--- OUTSIDE RECORDS SUMMARY | ~2019-11-23 | XMS | Encounter Summary ---
Demographics + + + | Address | [address] | | | [place] [address] | + + + | Home Phone [...] Team Providers + +------+ + | Care Copy Camera Operator Name | Role | Phone | + +------+ + | Christos Olivarez MD | PCP | | + +------+ + Encounter Details +--------+ + + + + | Date | Type | Department | Care Team | Description | +--------+ + + + + | 03/17/ | [employer] | Hematology | Krunal Godoy, | | | 2019 | | Oncology Study [address] | ,PhD [address] | | | | | [address] | [place], [place] | | | | | Mailcode: [facility] | [address] | | | | | [facility] | [phone] | | | | | and Healing, | | | | | | [facility] | | | | | | Floor [place], [place] | | | | | | [address] | | | | | | [phone] | | | +--------+ + + + [...]
--- OUTSIDE RECORDS SUMMARY | ~2019-11-23 | XMS | Clinical Summary ---
Demographics + + + | Address | [address] | | | [place] [address] | + + + | Home Phone | | + + + | Preferred Language | Unknown | + + + | Marital Status | | + + + | Christian Affiliation | 1041 | + + + | Race | Unknown | + + + | Ethnic Group | Unknown | + + + Author + + + | Author | [facility] | | | and [place] | + + + | Organization | [facility] | | | [...] Team Providers + +------+ + | Care Center Medical Director Name | Role | Phone | + +------+ + | Luis Leiva DO | PCP | | + +------+ + Allergies Not on File Medications Not on file Active Problems Not on file Social History + +-------+ +--------+------+ | Tobacco [...] | + + Last Filed Vital Signs Not on file Plan of Treatment + + + + + | Health Maintenance | Due Date | Last Done | Comments | + + + + + | Vaccine: | | | | | Dtap/Tdap/Td (1 - | 2 | | | | Tdap) | | | | + + + + + | Vaccine: Zoster (1 | | | | | of 2) | 1 | | | + + + + + | Vaccine: | | | | | Pneumococcal 65+ (1 | 6 | | | | of 2 - PCV13) | | | | + + + + + | Vaccine: Influenza | | | | | (#1) | 9 | | | + + + + + Results Not on filefrom Last 3 Months Insurance + +--------+ +--------+ +---------+--------+ | Payer | Benefi | Subscriber | Effect | Phone | Address | Type | | | t Plan | ID | gentry | | | | | | / | | Dates | | | | | | Group | | | | | | + +--------+ +--------+ +---------+--------+ | [employer] [place] | [id number] | | | | Indemn | | | CHOICE | | 019-Pr | | | ity | | | PC3 | | esent | | | | + +--------+ +--------+ +---------+--------+ | MEDICARE | MEDICA | [id number] | 07/27/20 | [phone] | | Medica | | | RE | | 16-Pre | 5 | | re | | | PART A | | sent | | | | | | AND B | | | | | | + +--------+ +--------+ +---------+--------+ + +--------+ +--------+ + + | Guarantor Name | Accoun | Relation to | Date | Phone | Billing Address | | | t Type | Patient | of | | | | | | | | | | + +--------+ +--------+ + + | Jacob Sapp | Person | Self [birth year] | [address] | | | al/Fam | | 1950 | [phone] | [place] [address] | | | marsha | | | 6 (Home) | | | | | | | [phone] | | | | | | | 9 (Work) | | + +--------+ +--------+ + +"
--- OUTSIDE RECORDS SUMMARY | ~2019-11-23 | XMS | Encounter Summary ---
Demographics + + + | Address | [address] | | | [place] [address] | + + + | Home Phone [...] Team Providers + +------+ + | Care Education Courses Sales Representative Name | Role | Phone | + +------+ + | Luis Painting DO | PCP | | + +------+ [...] | +--------+ + + + + | 11/14/ | Hospital | [facility] [address] | [place] Li, | | | 2016 | Encounter | [address] | MD [address] | | | | | [facility] | [facility] | | | | | Manuel Madrigal | [place], [place] | | | | | (MNP/[facility]) | [address] | | | | | [place], [place] | [phone] | | | | | [address] | | | | | | [phone] | | | +--------+ + + + [...] + + + | Blood Pressure | 138/92 | 11/14/2017 6:00 PM | | | | | PST | | + + + + + | Pulse | 75 | 11/14/2017 6:00 PM | | | | | PST | | + + + + + | Temperature | 36.7 C (98.1 F) | 11/14/2017 5:29 PM | | | | | PST | | + + + + + | Respiratory Rate | 16 | 11/14/2017 6:00 PM | | | | | PST | | + + + + + | Oxygen Saturation | 98% | 11/14/2017 6:00 PM | | | | | PST | | + + + + + | Inhaled Oxygen | - | - | | | Concentration | | | | + + + + + | Weight | 97.1 kg (214 lb) | 11/14/2017 3:43 PM | | | | | PST | | + + + + + | Height | 172.7 cm (5' 8") | 11/14/2017 3:43 PM | | | | | PST | | + + + + + | Body Mass Index | 32.54 | 11/14/2017 3:43 PM | | | | | PST | | + + + + + documented in this encounter Discharge Instructions Instructions West, Hattie, RN - 11/14/2017[place] Care Instructions after EGD (Upper Endoscop y) with EUS (Endoscopic Ultrasound) You may resume your normal diet and medications unless told otherwise. Medications The medications you received for your procedure can cause you to be forgetful and drowsy an d will take the remainder of the day to wear off. DO NOT drink alcohol, drive, operate heavy machinery, sign legal documents, or make major d ecisions until tomorrow. Common After Effects Mild abdominal pain, bloating, and gas. Sore throat. You may treat it with throat lozenges and/or gargle with warm salt water. You may bruise at your IV site. If you have pain, redness, or swelling at your IV site a pply a warm compress. Complications Call your GI doctor if you have: Abnormal pain or any new unexplained symptoms. Shortness of breath, chest or neck pain. Vomiting blood or rectal bleeding. Fever above 101.5 Redness, pain, or swelling at your IV site that is not relieved with warm compress. For any questions related to your procedure, call Sunday- Sunday 8:00- 4:30 Call the endoscopy department toll free ext. [phone] or After business hours or on weekends and holiday Hospital Web Site Manager toll free ext. [phone] and have the GI doctor buckle and button maker paged. The provider who performed your procedure is: Dr. Li Results of your EGD/EUS: Staging done. [facility] up [facility]ments with[facility] you for choosing [facility]! Your primary care provider or referring provider will receive copies of the procedure repor t and all the pathology reports with recommendations for treatment if needed. documented in this encounter Plan of Treatment Not on filedocumented as of this encounter Procedures + +--------+ + + + | Procedure Name | Priori | Date/Time | Associated Diagnosis | Comments | | | ty | | | | + +--------+ + + + | EUS UPPER | Routin | 11/14/2017 | Adenocarcinoma of | Results for this | | | e | 4:40 PM | gastroesophageal | procedure are in the | | | | PST | junction (HCC) | results section. | + +--------+ + + + documented in this encounter Results EUS UPPER (11/14/2017 4:40 PM PST) + + | Specimen | + + | | + + + + + | Narrative | Performed At | + + + | MRN: | [facility] | | [id number] Date: 11/14/2017Patient Name: Jacob Carlos #: | ENDOSCOPY | | [id number] of : 1950SN: [id number] Type: | | | AmbulatoryRoom: GI 2Procedure: Upper EUSIndications: | | | Pre-treatment staging of esophageal adenocarcinomaProviders: | | | DAKOTA LI MD (Doctor), HATTIE TABOR RN (Nurse), | | | JUNE SLADE RN (Apprentice Machinist Outside), | | | SHASHI HERNANDEZ (Apprentice Machinist Outside)Referring | | | MD: INDIGO DIOR MDRequesting Provider: Medicines: | | | Fentanyl 100 [...] | | | The Olympus [id number] Endoscope #[id number] | | | was introduced through the mouth, and | | | advanced to the second part of | | | duodenum. The Olympus [id number] Radial Echoendoscope | | | #[id number] was introduced through the mouth, and | [...] procedure.HANNAH Harris MD11/14/2017 | | | 5:56:27 [facility]Tbob [facility] report has been signed electronically.Number of | | | Addenda: 0Note Initiated On: 11/14/2017 4:40 [facility] Letter to: | | | LUIS PAINTING DO | | |DAKOTA LI MD | | |11/14/2017 5:56:27 PM | | |This report has been signed electronically. 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 | | cardia | + + | Adenocarcinoma of gastroesophageal junction (HCC) Malignant neoplasm of cardia | + + documented in this encounter Administered Medications + +--------+ +--------+------+------+ | Medication Order | MAR | Action | Dose | Rate | Site | | | Action | Date | | | | + +--------+ +--------+------+------+ | fentaNYL (SUBLIMAZE) injection | Given | 11/14/20 | 25 mcg | | | | intravenous, INTRAPROCEDURE PRN, | | 17 4:52 | | | | | Starting Sun11/14/17 at 1652, | | PM PST | | | | | Until Sun11/14/17 at 1652 | | | | | | + +--------+ +--------+------+------+ +---+---+ | | | +---+---+ + +-------+ +--------+---+---+ | fentaNYL (SUBLIMAZE) injection | Given | 11/14/20 | 25 mcg | | | | intravenous, INTRAPROCEDURE PRN, | | 17 4:53 | | | | | Starting Sun11/14/17 at 1653, | | PM PST | | | | | Until Sun11/14/17 at 1653 | | | | | | + +-------+ +--------+---+---+ +---+---+ | | | +---+---+ + +-------+ +--------+---+---+ | fentaNYL (SUBLIMAZE) injection | Given | 11/14/20 | 25 mcg | | | | intravenous, INTRAPROCEDURE PRN, | | 17 4:55 | | | | | Starting Sun11/14/17 at 1655, | | PM PST | | | | | Until Sun11/14/17 at 1655 | | | | | | + +-------+ +--------+---+---+ +---+---+ | | | +---+---+ + +-------+ +--------+---+---+ | fentaNYL (SUBLIMAZE) injection | Given | 11/14/20 | 25 mcg | | | | intravenous, INTRAPROCEDURE PRN, | | 17 4:57 | | | | | Starting Sun11/14/17 at 1657, | | PM PST | | | | | Until Sun11/14/17 at 1656 | | | | | | + +-------+ +--------+---+---+ +---+---+ | | | +---+---+ + +-------+ +--------+---+---+ | fentaNYL (SUBLIMAZE) injection | Given | 11/14/20 | 25 mcg | | | | intravenous, INTRAPROCEDURE PRN, | | 17 4:59 | | | | | Starting Sun11/14/17 at 1659, | | PM PST | | | | | Until Sun11/14/17 at 1658 | | | | | | + +-------+ +--------+---+---+ +---+---+ | | | +---+---+ + +-------+ +--------+---+---+ | fentaNYL (SUBLIMAZE) injection | Given | 11/14/20 | 25 mcg | | | | intravenous, INTRAPROCEDURE PRN, | | 17 5:02 | | | | | Starting Sun11/14/17 at 1702, | | PM PST | | | | | Until Sun11/14/17 at 1702 | | | | | | + +-------+ +--------+---+---+ +---+---+ | | | +---+---+ + +-------+ +--------+---+---+ | fentaNYL (SUBLIMAZE) injection | Given | 11/14/20 | 25 mcg | | | | intravenous, INTRAPROCEDURE PRN, | | 17 5:07 | | | | | Starting Sun11/14/17 at 1707, | | PM PST | | | | | Until Sun11/14/17 at 1707 | | | | | | + +-------+ +--------+---+---+ +---+---+ | | | +---+---+ + +-------+ +--------+---+---+ | fentaNYL (SUBLIMAZE) injection | Given | 11/14/20 | 25 mcg | | | | intravenous, INTRAPROCEDURE PRN, | | 17 5:14 | | | | | Starting Sun11/14/17 at 1714, | | PM PST | | | | | Until Sun11/14/17 at 1714 | | | | | | + +-------+ +--------+---+---+ +---+---+ | | | +---+---+ + +-------+ +-------+---+---+ | lidocaine viscous (XYLOCAINE | Given | 11/14/20 | 15 mL | | | | VISCOUS) 2 % mucosal solution 15 | | 17 4:50 | | | | | mL 15 mL, oral, INTRAPROCEDURE | | PM PST | | | | | PRN, Starting Sun11/14/17 at | | | | | | | 1530, Until Matilda 11/15/17 at 0012, | | | | | | | sore oropharynx | | | | | | + +-------+ +-------+---+---+ +---+---+ | | | +---+---+ + +-------+ +------+---+---+ | midazolam (PF) (VERSED) | Given | 11/14/20 | 1 mg | | | | injection INTRAPROCEDURE PRN, | | 17 4:52 | | | | | Starting Sun11/14/17 at 1652, | | PM PST | | | | | Until Sun11/14/17 at 1652 | | | | | | + +-------+ +------+---+---+ +---+---+ | | | +---+---+ + +-------+ +------+---+---+ | midazolam (PF) (VERSED) | Given | 11/14/20 | 1 mg | | | | injection INTRAPROCEDURE PRN, | | 17 4:53 | | | | | Starting Sun11/14/17 at 1653, | | PM PST | | | | | Until Sun11/14/17 at 1653 | | | | | | + +-------+ +------+---+---+ +---+---+ | | | +---+---+ + +-------+ +------+---+---+ | midazolam (PF) (VERSED) | Given | 11/14/20 | 1 mg | | | | injection INTRAPROCEDURE PRN, | | 17 4:55 | | | | | Starting Sun11/14/17 at 1655, | | PM PST | | | | | Until Sun11/14/17 at 1654 | | | | | | + +-------+ +------+---+---+ +---+---+ | | | +---+---+ + +-------+ +------+---+---+ | midazolam (PF) (VERSED) | Given | 11/14/20 | 1 mg | | | | injection INTRAPROCEDURE PRN, | | 17 4:57 | | | | | Starting Sun11/14/17 at 1657, | | PM PST | | | | | Until Sun11/14/17 at 7 | | | | | | + +-------+ +------+---+---+ +---+---+ | | | +---+---+ + +-------+ +------+---+---+ | midazolam (PF) (VERSED) | Given | 11/14/20 | 1 mg | | | | injection INTRAPROCEDURE PRN, | | 17 4:59 | | | | | Starting Sun11/14/17 at 1659, | | PM PST | | | | | Until Sun11/14/17 at 1659 | | | | | | + +-------+ +------+---+---+ +---+---+ | | | +---+---+ + +-------+ +------+---+---+ | midazolam (PF) (VERSED) | Given | 11/14/20 | 1 mg | | | | injection INTRAPROCEDURE PRN, | | 17 5:02 | | | | | Starting Sun11/14/17 at 1702, | | PM PST | | | | | Until Sun11/14/17 at 1702 | | | | | | + +-------+ +------+---+---+ +---+---+ | | | +---+---+ + +-------+ +------+---+---+ | midazolam (PF) (VERSED) | Given | 11/14/20 | 2 mg | | | | injection INTRAPROCEDURE PRN, | | 17 5:04 | | | | | Starting Sun11/14/17 at 1704, | | PM PST | | | | | Until Sun11/14/17 at 1704 | | | | | | + +-------+ +------+---+---+ +---+---+ | | | +---+---+ + +-------+ +------+---+---+ | midazolam (PF) (VERSED) | Given | 11/14/20 | 1 mg | | | | injection INTRAPROCEDURE PRN, | | 17 5:07 | | | | | Starting Sun11/14/17 at 1707, | | PM PST | | | | | Until Sun11/14/17 at 1707 | | | | | | + +-------+ +------+---+---+ +---+---+ | | | +---+---+ + +-------+ +------+---+---+ | midazolam (PF) (VERSED) | Given | 11/14/20 | 1 mg | | | | injection INTRAPROCEDURE PRN, | | 17 5:14 | | | | | Starting Sun11/14/17 at 1714, | | PM PST | | | | | Until Sun11/14/17 at 1714 | | | | | | + +-------+ +------+---+---+ + +---+ | | | + +---+ | simethicone (MYLICON) | | | suspension 3.333 mg 3.333 mg | | | (rounded from 3.3333 mg = 1 | | | drop), oral, INTRAPROCEDURE PRN, | | | Starting Sun11/14/17 at 1530, | | | Until Matilda 11/15/17 at 0012, gas | | | bubbles in endoscope | | + +---+ | | | + +---+ | sodium chloride 0.9% IV | | | infusion 50 mL/hr, intravenous, | | | CONTINUOUS, Starting Sun11/14/17 | | | at 1545, Until Matilda 11/15/17 at | | | 0012 | | + +---+ | | | + +---+ documented in this encounter
--- OUTSIDE RECORDS SUMMARY | ~2019-11-23 | XMS | Encounter Summary ---
Demographics + + + | Address | [address] | | | [place] [address] | + + + | Home Phone [...] + + | Author | [facility] | + + + | Organization | [facility] | + + + | Address | [...] Team Providers + +------+ + | Care Verification Clerk Name | Role | Phone | + [...] [address] | | | | | [address] | [place] [address] | | | | | Mailcode: [place] | | | | | | for Health and | | | | | | Healing, [place] [address] | | | | | | [place], [place] | | | | | | [address] | | | | | | [phone] | | | +--------+ + + + [...] | [facility] | [address] | [place] [address] | | | OF CARE TESTS | [...] + + | MARISELA SANDHU | [address] | [place] [address] | | | OF CARE TESTS | [...] [facility] | [address] | [place] [address] | | | SERVICES, CORE | PARK [...] [facility] | [address] | [place] [address] | | | SERVICES, CORE | PARK [...] LABORATORY | [address] | [place] [address] | | | SERVICES, CORE | [address] | | | + + + + + documented in this encounter Visit Diagnoses + + | Diagnosis | + + | Malignant neoplasm of lower third of esophagus (HCC) Malignant neoplasm of lower | | third of esophagus | + + documented in this encounter"
--- OUTSIDE RECORDS SUMMARY | ~2019-11-23 | XMS | Encounter Summary ---
Demographics + + + | Address | [address] | | | [place] [address] | + + + | Home Phone [...] Providers + +------+ + | Care General Warehouse Associate Name | Role | Phone | [...] | | | neoplasm of | ,PhD [address] | | | | | | lower third | [address] | | | | | | of esophagus | [place], | | | | | | (HCC) | [place] | | | | | | Procedures | [address] | | | | | | CT CHEST, | Phone: | | | | | | ABDOMEN AND | [phone] | | | | | | PELVIS W IV | Fax: | | | | | | CONTRAST | [phone] | | + +--------+ + + + + Encounter Details +--------+ + + + + | Date | Type | Department | Care Team | Description | +--------+ + + + + | 04/28/ | Rug Inspector | Hematology | Krunal Godoy, | Malignant neoplasm | | 2019 | | Oncology Study [address] | ,PhD [address] | of lower third of | | | | [address] | [address] [place], [place] | esophagus (HCC) | | | | Mailcode: [facility] | [address] | (Primary Dx) | | | | [place] [facility] | [phone] | | | | | and Healing, | | | | | | Building [address], | | | | | | Floor [place], [place] | | | | | | [address] | | | | | | [phone] | | | +--------+ + + + [...] CHEST, ABDOMEN AND PELVIS W IV CONTRAST (05/20/2019 9:49 AM PDT) + + | Specimen | + + | | + + + + + | Narrative | Performed At | + + + | EXAM: CT of the chest, abdomen and pelvis WITH intravenous contrast. | [facility] | | HISTORY: Malignant neoplasm of lower third of esophagus | RADIOLOGY VOICE | | COMPARISON: 02/17/2019. TECHNIQUE: CT of the chest, abdomen and | RECOGNITION 2 | | pelvis WITH intravenous contrast. Coronal and sagittal reformats were | | | generated and reviewed. FINDINGS: CHEST: The heart and great | | | vessels are intact. Trace right pleural effusion is present. | | | Postoperative changes of an esophagectomy with gastric conduit. No | | | thoracic adenopathy. No pericardial effusions. Continued enlargement | | | of the left lower lobe subpleural nodule that was barely visible on | | | 11/27/2018, and now measures 6 x 5 mm (image 91). Scattered sub-5 mm | | | pulmonary nodules are unchanged and likely postinflammatory. | | | LIVER: 2 left lateral segment hypodensities are stable and likely | | | cysts or hemangiomas. BILIARY: The gallbladder is surgically absent. | | | PANCREAS: Diffuse atrophy, unchanged. SPLEEN: 12 mm hypodense | | | previously measured 9 mm. This is likely benign, possibly a hemangioma | | | given its stability. ADRENALS: Unremarkable. KIDNEYS/URETERS: | | | Multiple renal cortical cysts are present. PELVIC ORGANS/BLADDER: | | | Unremarkable. GI TRACT: Scattered colonic diverticula are noted | | | without diverticulitis. Large amount stool is noted throughout the | | | descending colon. The bowel loops are not dilated. PERITONEUM: No | | | free air or fluid. LYMPH NODES: No lymphadenopathy. VESSELS: | | | Scattered atherosclerotic calcifications are present. BONES AND | | | SOFT TISSUES: Since 08/21/2018, there has been interval enlargement of | | | a 2.6 x 1.2 cm right abdominal oblique muscle nodule (image 183), | | | previously, 2.5 x 0.9 cm on 02/12/2019. Stable right flank having | | | containing uncomplicated hernia. IMPRESSION: Since 02/17/2019, | | | there is continued enlargement of a right intramuscular enhancing | | | soft tissue involving the right lower quadrant abdominal oblique | | | muscle. This could represent a metastasis although is an atypical | | | site. Further evaluation with tissue sampling may be helpful. I | | | have personally reviewed the images and, if necessary, edited the | | | report. I agree with the report as now presented. Final | | | signature: Joanne Sandoval MD 05/20/2019 11:50 AM Preliminary: Joanne Minor | | Ramu Sandoval MD Dictation initiated: Joanne Sandoval MD 05/20/2019 | | | 11:36 AM | | + + + + + | Procedure Note | + + | Service Account, Radiant Res In Interface - 05/20/2019 11:51 AM PDT EXAM: CT of the | | chest, abdomen and pelvis WITH intravenous contrast. HISTORY: Malignant neoplasm of | | lower third of esophagus COMPARISON: 02/17/2019. TECHNIQUE: CT of the chest, abdomen and | | pelvis WITH intravenous contrast. Coronal and sagittal reformats were generated and | | reviewed. FINDINGS: CHEST: The heart and great vessels are intact. Trace right pleural | | effusion is present. Postoperative changes of an esophagectomy with gastric conduit. No | | thoracic adenopathy. No pericardial effusions. Continued enlargement of the left lower | | lobe subpleural nodule that was barely visible on 11/27/2018, and now measures 6 x 5 mm | | (image 91). Scattered sub-5 mm pulmonary nodules are unchanged and likely | | postinflammatory. LIVER: 2 left lateral segment hypodensities are stable and likely | | cysts or hemangiomas.BILIARY: The gallbladder is surgically absent.PANCREAS: Diffuse | | atrophy, unchanged. SPLEEN: 12 mm hypodense previously measured 9 mm. This is likely | | benign, possibly a hemangioma given its stability.ADRENALS: | | Unremarkable.KIDNEYS/URETERS: Multiple renal cortical cysts are present.PELVIC | | ORGANS/BLADDER: Unremarkable. GI TRACT: Scattered colonic diverticula are noted without | | diverticulitis. Large amount stool is noted throughout the descending colon. The bowel | | loops are not dilated.PERITONEUM: No free air or fluid. LYMPH NODES: No | | lymphadenopathy.VESSELS: Scattered atherosclerotic calcifications are present. BONES AND | | SOFT TISSUES: Since 08/21/2018, there has been interval enlargement of a 2.6 x 1.2 cm | | right abdominal oblique muscle nodule (image 183), previously, 2.5 x 0.9 cm on | | 02/12/2019. Stable right flank having containing uncomplicated hernia. IMPRESSION: Since | | 02/17/2019, there is continued enlargement of a right intramuscular enhancing soft | | tissue involving the right lower quadrant abdominal oblique muscle. This could represent | | a metastasis although is an atypical site. Further evaluation with tissue sampling may | | be helpful. I have personally reviewed the images and, if necessary, edited the report. | | I agree with the report as now presented. Final signature: Joanne Sandoval MD 05/20/2019 | | 11:50 AM Preliminary: Joanne Sandoval MD Dictation initiated: Joanne Sandoval MD | | 05/20/2019 11:36 AM | |BONES AND SOFT TISSUES: Since 08/21/2018, there has been interval enlargement of a 2.6 x 1.2 cm right abdominal oblique muscle nodule (image 183), previously, 2.5 x 0.9 cm on 02/12/2019 . Stable right flank having containing uncomplicated hernia. | | | |IMPRESSION: | | | |Since 02/17/2019, there is continued enlargement of a right intramuscular enhancing soft tis charis involving the right lower quadrant abdominal oblique muscle. This could represent a meta stasis although is an atypical site. | |Further evaluation with tissue sampling may be helpful. | | | |I have personally reviewed the images and, if necessary, edited the report. I agree with th e report as now presented. | | | |Final signature: Joanne Sandoval MD 05/20/2019 11:50 AM | |Preliminary: Joanne Sandoval MD | |Dictation initiated: Joanne Sandoval MD 05/20/2019 11:36 AM | + + + +---------+ + [...]
--- OUTSIDE RECORDS SUMMARY | ~2019-11-23 | XMS | Encounter Summary ---
Demographics + + + | Address | [address] | | | [place] [address] | + + + | Home Phone [...] Team Providers + +------+ + | Care Laborer [place] Name | Role | Phone | + +------+ + | Christos Olivarez MD | PCP | | + +------+ + Encounter Details +--------+ + + + + | Date | Type | Department | Care Team | Description | +--------+ + + + + | 04/21/ | It Engineer | Hematology/Medical | Krunal Godoy, | | | 2019 | | [facility] [place] | ,PhD [address] | | | | | for Health & Healing | [place], [place] | | | | | [address] | [address] | | | | | Mailcode: [place] | [phone] | | | | | for Health and | | | | | | [facility] [address] | | | | | | [place], [place] | | | | | | [address] | | | | | | [phone] | | | +--------+ + + + [...]
--- OUTSIDE RECORDS SUMMARY | ~2019-11-23 | XMS | Encounter Summary ---
Demographics + + + | Address | [address] | | | [place] [address] | + + + | Home Phone [...] Team Providers + +------+ + | Care Creche Attendant Name | Role | Phone | + +------+ + | Luis Leiva DO | PCP | | + +------+ + Reason for Visit + + + | Reason | Comments | + + + | RT Treatment Summary | | + + + Encounter Details +--------+ + + + + | Date | Type | Department | Care Team | Description | +--------+ + + + + | 02/08/ | Documentati | Radiation Oncology | Genaro Olsonina, | RT Treatment Summary | | 2018 | on | at [facility] [address] | [address] | | | | | [address] | [address] | | | | | /[id number] | [place], [place] | | | | | [facility], | [address] | | | | | [place] [address] | [phone] | | | | | [phone] | | | +--------+ + + + [...]
--- OUTSIDE RECORDS SUMMARY | ~2019-11-23 | XMS | Encounter Summary ---
Demographics + + + | Address | [address] | | | [place] [address] | + + + | Home Phone [...] Team Providers + +------+ + | Care Curtain Stretcher Assembler Name | Role | Phone | + +------+ + | Christos Olivarez MD | PCP | | + +------+ + Reason for Visit + + + | Reason | Comments | + + + | Lab Draw | [facility] | + + + Other (Routine) +--------+---------+ [...] | | | | | Procedures | [place], [place] | Health and | | | | | [place] | [address] | Healing, | | | | | SERVICES | Phone: | [address] | | | | | PROVIDED | [phone] | [place], [place] | | | | | PART OF [place] | Fax: | [address] | | | | | INJ | [phone] | Phone: | | | | | [address] | | [phone] | | | | | MG Study | | Fax: | | | | | IRB: [id number] | | [phone] | | | | | Study Title: [...] + + + + | 09/17/ | Clinical | Laboratory at [facility] | | Lab Draw (Starter | | 2018 | Support | [address] | | Labs) | | | Staff | [place], [place] | | | | | | [address] | | | | | | [phone] | | | +--------+ + + + [...] documented as of this encounter Progress Notes Deysi Peterson RN - 09/17/2018 9:20 AM PDTPeripheral iv placed via right FA on . CBC and CMP were drawn via PIV, and results pending. Other labs sent to core lab. Parag dy labs drawn and put in research bin. Pt tolerated without incident. [facility]. documented in this encounter Plan of Treatment Not on filedocumented as of this encounter Procedures + +--------+ + + + | Procedure Name | Priori | Date/Time | Associated Diagnosis | Comments | | | ty | | | | + +--------+ + + + | CBC AND AUTO DIFF - | Routin | 09/17/2018 | Malignant neoplasm | Results for this | | [facility] | e | 9:29 AM | of lower third of | procedure are in the | | | | PDT | esophagus (HCC) | results section. | + +--------+ + + + | COMPLETE METABOLIC | Routin | 09/17/2018 | Malignant neoplasm | Results for this | | PANEL - OLP | e | 9:29 AM | of lower third of | procedure are in the | | | | PDT | esophagus (HCC) | results section. | + +--------+ + + + | CBC WITH AUTO DIFF - | Routin | 09/17/2018 | Malignant neoplasm | Results for this | | OLP | e | 9:29 AM | of lower third of | procedure are in the | | | | PDT | esophagus (HCC) | results section. | + +--------+ + + + | [facility] - COMPLETE | Routin | 09/17/2018 | Malignant neoplasm | Results for this | | METABOLIC SET | e | 9:29 AM | of lower third of | procedure are in the | | | | PDT | esophagus (HCC) | results section. | + +--------+ + + + | LIPASE, PLASMA | Routin | 09/17/2018 | Malignant neoplasm | Results for this | | | e | 9:29 AM | of esophagus, | procedure are in the | | | | PDT | unspecified location | results section. | | | | | (HCC) | | + +--------+ + + + | LDH TOTAL, PLASMA | Routin | 09/17/2018 | Malignant neoplasm | Results for this | | | e | 9:29 AM | of esophagus, | procedure are in the | | | | PDT | unspecified location | results section. | | | | | (HCC) | | + +--------+ + + + | AMYLASE, PLASMA | Routin | 09/17/2018 | Malignant neoplasm | Results for this | | | e | 9:29 AM | of esophagus, | procedure are in the | | | | PDT | unspecified location | results section. | | | | | (HCC) | | + +--------+ + + + | RESEARCH | Routin | 09/17/2018 | Malignant neoplasm | | | COMMUNICATION #1 - | e | 9:27 AM | of lower third of | | | [place] | | PDT | esophagus (HCC) | | + +--------+ + + + | NURSING | Routin | 09/17/2018 | Malignant neoplasm | | | COMMUNICATION #1 - | e | 9:27 AM | of lower third of | | | [place] | | PDT | esophagus (HCC) | | + +--------+ + + + documented in this encounter Results LIPASE, PLASMA (09/17/2018 9:29 [...] | + + + + + | [facility] | [address] | [place] [address] | | | SERVICES, CORE | [address]ARK [...] | + + + + + | [facility] | [address] | [place] [address] | | | SERVICES, CORE | ASHLEY [...] + + | [facility] | [address] | [place] [address] | | | SERVICES, CORE | [address] | | | + + + + + CBC AND AUTO DIFF - [facility] (09/17/2018 9:29 AM PDT) + + + + + + | Component | Value | Ref Range | Performed | Pathologist | | | | | At | Signature | + + + + + + | WHITE CELL | 4.17 | 3.50 - 10.80 | [facility] | | | COUNT | | K/cu mm | LABORATORY | | | | | | SERVICES, | | | | | | [facility] | [facility] + | | | | | | HEALING | | + + + + + + | RED CELL | 3.57 (L) | 4.50 - 6.00 | [facility] | | | COUNT | | M/cu mm | LABORATORY | | | | | | SERVICES, | | | | | | [facility] | | | | [facility] + | | | | | | HEALING | | + + + + + + | HEMOGLOBIN | 12.1 (L) | 13.5 - 17.5 | [facility] | | | | | g/dL | LABORATORY | | | | | | SERVICES, | | | | | | [facility] | | [facility] + | | | | | | HEALING | | + + + + + + | HEMATOCRIT | 35.6 (L) | 41.0 - 53.0 % | [facility] | | | | | | LABORATORY | | | | | | SERVICES, | | | | | | [facility] | | [facility] + | | | | | | HEALING | | + + + + + + | MCV | 99.7 | 80.0 - 100.0 fL | [facility] | | | | | | LABORATORY | | | | | | SERVICES, | | | | | | [facility] | | | | | [facility] + | | | | | | HEALING | | + + + + + + | MCHC | 34.0 | 32.0 - 36.0 | [facility] | | | | | g/dL | LABORATORY | | | | | | SERVICES, | | | | | | [facility] | | | | [facility] + | | | | | | HEALING | | + + + + + + | RDW SD | 44.9 | 35.1 - 46.3 fL | [facility] | | | | | | LABORATORY | | | | | | SERVICES, | | | | | | [facility] | | [facility] + | | | | | | HEALING | | + + + + + + | PLATELET | 175 | 150 - 400 K/cu | [facility] [...] + + + + | NEUTROPHIL | 70.0 | 50.0 - 70.0 % | [facility] | | | % | | | LABORATORY | | | | | | SERVICES, | | | | | | [facility] | | | | | | [facility] + | | | | | | HEALING | | + + + + + + | LYMPHOCYTE | 21.1 | 18.0 - 42.0 % | [facility] | | | % | | | LABORATORY | | | | | | SERVICES, | | | | | | [facility] | | | | | | [facility] + | | | | | | HEALING | | + + + + + + | MONOCYTE % | 7.0 | 3.5 - 9.0 % | [facility] [...] + + + | BASO % | 0.5 | 0.0 - 2.0 % | [facility] | | | | | | LABORATORY | | | | | | SERVICES, | | | | | | [facility] | | | | | | [facility] + | | | | | | HEALING | | + + + + + + | NEUTROPHIL | 2.92 | 1.80 - 7.70 | [facility] | | | # | | K/cu mm | LABORATORY | | | | | | SERVICES, | | | | | | [facility] | | | | | | [facility] + | | | | | | HEALING | | + + + + + + | LYMPHOCYTE | 0.88 (L) | 1.00 - 4.80 | [facility] | | | # | | K/cu mm | LABORATORY | | | | | | SERVICES, | | | | | | [facility] | | | | | | [facility] + | | | | | | HEALING | | + + + + + + | MONOCYTE # | 0.29 | 0.10 - 0.90 | [facility] | | | | | K/cu mm | LABORATORY | | | | | | SERVICES, | | | | | | [facility] | | | | | | [facility] + | | | | | | HEALING | | + + + + + + | EOS # | 0.06 | 0.00 - 0.50 | [facility] | [...] | 2018. | LABORATORY | | | [facility], | | | [place] [facility] | | | HEALTH + | | | HEALING | + + + + + + + + | Performing | Address | City/State/Zipcode | Phone Number | | Organization | | | | + + + + + | [facility] | [address] | [place] [address] | | | SERVICES, CENTER FOR | | | | | HEALTH + HEALING | | | | + + + + + [facility] - COMPLETE METABOLIC SET (09/17/2018 9:29 AM PDT) + +---------+ + + + | Component | Value | Ref Range | Performed | Pathologist | | | | | At | Signature | + +---------+ + + + | GLUCOSE, | 174 (H) | 70 - 99 mg/dL | [...] +---------+ + + + | SODIUM, | 143 | 134 - 143 | [facility] | | | PLASMA | | mmol/L | LABORATORY | | | (LAB) | | | SERVICES, | | | | | | [facility] | | | | | | [facility] + | | | | | | HEALING | | + +---------+ + + + | POTASSIUM, | 4.5 | 3.4 - 5.0 | [facility] | [...] + + + | TOTAL CO2, | 25 | 22 - 29 mmol/L | [facility] | | | PLASMA | | | LABORATORY | | | (LAB) | | | SERVICES, | | | | | | [facility] | | | | | | [facility] + | | | | | | HEALING | | + +---------+ + + + | CALCIUM, | 9.5 | 8.6 - 10.2 | [...] +---------+ + + + | TOTAL | 6.9 | 6.1 - 7.9 g/dL | [facility] [...] + + + | ALK PHOS | 75 | 43 - 92 U/L | [facility] | | | | | | LABORATORY | | | | | | SERVICES, | | | | | | [facility] | | | | | | [facility] + | | | | | | HEALING | | + +---------+ + + + | AST(SGOT) | 39 | <=41 U/L | [facility] | | | | | | LABORATORY | | | | | | SERVICES, | | | | | | [facility] | | | | | | [facility] + | | | | | | HEALING | | + +---------+ + + + | ALT (SGPT) | 32 | <=60 U/L | [facility] | | [...] | + + + + + | [facility] | [address] | [place] [address] | | | [facility] | | | | | HEALTH + [...]
--- OUTSIDE RECORDS SUMMARY | ~2019-11-23 | XMS | Encounter Summary ---
Demographics + + + | Address | [address] | | | [place] [address] | + + + | Home Phone [...] Team Providers + +------+ + | Care Patient Account Representative Name | Role | Phone | + +------+ + | Crhistos Olivarez MD | PCP | | + +------+ + Reason for Visit + + + | Reason | Comments | + + + | Immunotherapy | INV nivolumab/placebo | + + + Encounter Details +--------+ + + + + | Date | Type | Department | Care Team | Description | +--------+ + + + + | 07/15/ | Hospital | Hematology/Medical | Onc, Gen [address] | | | 2019 | Encounter | Oncology at [facility] | [place], | | | | | [address] | [place] [address] | | | | | Mailcode: Garrett | | | | | | [facility] and | | | | | | [facility], [address] | | | | | | [place], [place] | | | | | | [address] | | | | | | [phone] | | | +--------+ + + + [...] + + + | Blood Pressure | 100/56 | 07/15/2019 2:58 PM | | | | | PDT | | + + + + + | Pulse | 57 | 07/15/2019 2:58 PM | | | | | PDT | | + + + + + | Temperature | 36.9 C (98.4 F) | 07/15/2019 2:58 PM | | | | | PDT | | + + + + + | Respiratory Rate | 12 | 07/15/2019 2:58 PM | | | | | PDT | | + + + + + | Oxygen Saturation | 100% | 07/15/2019 2:58 PM | | | | | PDT | | + + + + + | Inhaled Oxygen | - | - | | | Concentration | | | | + + + + + | Weight | 68 kg (150 lb) | 07/15/2019 2:58 PM | | | | | PDT | | + + + + + | Height | - | - | | + + + + + | Body Mass Index | 22.81 | 07/15/2019 1:44 PM | | | [...] TABLET BY | 30 | 1 | // | | | mcg oral tablet | [...] documented as of this encounter Progress Notes Therese Roblero RN - 07/15/2019 11:57 AM PDTChemotherapy Nurse Note Name: Jacob Sapp Date: 07/15/2019 Physician: Walt Allergies: Jacob is allergic to codeine. Diagnosis: esophageal ca Significant Other: Nursing Assessment: Fever: no; Diarrhea:No Constipation: No SOB / Cough: no; Rash: no Edema: no; Mucositis: no; Urinary: no; Neuropathy: no; S/S Bleeding: no; Severity (1=Not at all, 2=A little, 3=Quite a bit, 4=Very much) Nausea and/or Vomitin Fatigue: 2 and 3 Pain: 2 Location: [facility], recently treated for diverticulitis, states is getting better Narrative: Patient here for INV nivolumab/placebo. PIV in place from starter appt, pt meets treatment parameters. Positive blood return on IV line prior and after infusion. Medication infused with 250ml NS sidearm bag. Pt tolerated without incident. PIV d/c'd and intact. Pt Alert & Oriented x3, No acute distress, Mood & affect appropriate and Recent & remote memory intact and discharged with family/driver license agent, amb ulatory and instructions have been provided. Refer to MAR and Onc Lines and Transfusions doc flowsheet for treatment details.Electronic ally signed by Therese Roblero RN at 07/15/2019 4:42 PM PDTdocumented in this encounter Plan of [...] 480 mg in | New Bag | 07/15/20 | 480 mg | 120 | | | INV NaCl 0.9% IV 480 mg, | | 19 3:35 | | mL/hr | | | intravenous, Administer over 30 | | PM PDT | | | | | Minutes, ONCE, 1 dose, Tue | | | | | | | 07/15/19 at 1530, Pt ID: [id number], | | | | | | | Administer using a 0.2 micron | | | | | | | filter. Flush line with 15-20 mL | | | | | | | of normal saline. For | | | | | | | investigational use only, HIGH | | | | | | | ALERT MEDICATION IRB:[id number], | | | | | | | Protocol:[id number], Infuse using | | | | | | | 0.2 micron filter., | | | | | | + +---------+ +--------+-------+------+ +---+---+ | | | +---+---+ documented in this encounter"
--- OUTSIDE RECORDS SUMMARY | ~2019-11-23 | XMS | Encounter Summary ---
Demographics + + + | Address | [address] | | | [place] [address] | + + + | Home Phone [...] Team Providers + +------+ + | Care Comedian Name | Role | Phone | + +------+ + | Christos Olivarez MD | PCP | | + +------+ + Encounter Details +--------+ + + + + | Date | Type | Department | Care Team | Description | +--------+ + + + + | 11/14/ | Acid Operator | Hematology | Marie Liz, | Malignant neoplasm | | 2018 | | Oncology Study [address] | [address] | of lower third of | | | | [address] | [address] | esophagus (HCC) | | | | Mailcode: CH7M | [place] [address] | (Primary Dx) | | | | [facility] | [phone] | | | | | and Monika, | | | | | | [facility] | | | | | | Floor [place], [place] | | | | | | [address] | | | | | | [phone] | | | +--------+ + + + [...] as of this encounter Results LIPASE, PLASMA (11/27/2018 9:28 [...] | + + + + + | [facility] | [address] | [place] [address] | | | SERVICES, CORE | [address]SHLEY [...] [facility] | [address] | [place] [address] | | | SERVICES, CORE | [address] [...] | + + + + + | [facility] | [address] | [place] [address] | | | SERVICES, CORE | [address] | | | + + + + + documented in this encounter Visit Diagnoses + + | Diagnosis | + + | 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
--- OUTSIDE RECORDS SUMMARY | ~2019-11-23 | XMS | Encounter Summary ---
Demographics + + + | Address | [address] | | | [place] [address] | + + + | Home Phone [...] Team Providers + +------+ + | Care Production Aide Name | Role | Phone | + +------+ + | Christos Olivarez MD | PCP | | + +------+ + Encounter Details +--------+ + + + + | Date | Type | Department | Care Team | Description | +--------+ + + + + | 09/11/ | Tile Setter Apprentice | Hematology | Marie Liz, | Malignant neoplasm | | 2018 | | Oncology Study [address] | [address] | of esophagus, | | | | [address] | [address] | unspecified location | | | | Mailcode: CH7M | [place] [address] | ([facility]) (Primary Dx) | | | | [facility] | [phone] | | | | | and Monika, | | | | | | [facility] | | | | | | Floor [place], [place] | | | | | | [address] | | | | | | [phone] | | | +--------+ + + + [...] [facility] | [address] | [place] [address] | | | SERVICES, CORE | [address]SHLEY [...] [facility] | [address] | [place] [address] | | | SERVICES, CORE | PARK [...] | + + + + + | [facility] | [address] | [place] [address] | | | SERVICES, CORE | [address] | | | + + + + + documented in this encounter Visit Diagnoses + + | Diagnosis | + + | Malignant neoplasm of esophagus, unspecified location (HCC) - Primary | + + documented in this encounter"
--- OUTSIDE RECORDS SUMMARY | ~2019-11-23 | XMS | Encounter Summary ---
Demographics + + + | Address | [address] | | | [place] [address] | + + + | Home Phone [...] Team Providers + +------+ + | Care Armed Security Officer Name | Role | Phone | + [...] | | | | lower third | [address] | Mailcode: | | | | | of esophagus | [address] | Center for | | | | | Procedures | [place] [place] | Health and | | | | | MD | [address] | Healing, | | | | | SERVICES | Phone: | [address] | | | | | PROVIDED | [phone] | [place], [place] | | | | | PART OF MD | Fax: | [address] | | | | | INJ | [phone] | Phone: | | | | | [address] | | [phone] | | | | | MG MD EST | | Fax: | | | | | PATIENT | | [phone] | | | | | LEVEL V | | | | | | | Study IRB: | | | | | | | [id number] Study | | | | | | [...] | 2019 | Visit | [facility] at [facility] | POOJA Leger [address] | of lower third of | | | | for Health & Healing | [address] | esophagus (HCC) | | | | [address] | [place], [place] | (Primary Dx); | | | | Mailcode: [facility] | [address] | Clinical trial exam; | | | | for Health and | [phone] | Nausea | | | | Healing, [address] | | | | | | [place], [place] | | | | | | [address] | | | | | | [phone] | | | +--------+---------+ + + + [...] after signing consent to particip ate in [id number]: A Randomized, Multicenter, Double Blind, Phase III [...] 70.2 kg IV access: PIV RD/SW referral: bottom crane operator at OR established Multi-D MD: Chemotherapy teaching: done per chemo binder and ICF My Chart access: active and encouraged Patient reports that neoadjuvant chemo was completed at OR in [place]. Radiation completed at [facility]. He reports the following medical and surgical history at baseline: Past Medical History: Diagnosis Date Cervical spinal stenosis 1997 Coronary artery disease 2007 diagnosed on angiogram when experienced chest pain - treated with medications, pain attr ibuted to esophageal spasm, never had HI or stent H/O Diverticulosis 1997 Hernia, hiatal, [...] or no response, score 3) - 07/31/2018 [facility] Medical oncology evaluation- offered enrollment on Checkmate [...] to review Yun Ronquillo M.S., [facility] Physician Bag Loader Machine Operator Medical Oncology Pager [phone] documented in t his encounter Plan of [...]
--- OUTSIDE RECORDS SUMMARY | ~2019-11-23 | XMS | Encounter Summary ---
Demographics + + + | Address | [address] | | | [place] [address] | + + + | Home Phone [...] Team Providers + +------+ + | Care Metal Flow Coordinator Name | Role | Phone | + +------+ + | Christos Olivarez MD | PCP | | + +------+ + Encounter Details +--------+ + + + + | Date | Type | Department | Care Team | Description | +--------+ + + + + | 08/11/ | MyChart | Diagnostic Imaging | | Appt Reminder | | 2019 | Encounter | Services [address] | | | | | | [address] | | | | | | [place], [place] | | | | | | [address] | | | +--------+ + + + [...]
--- OUTSIDE RECORDS SUMMARY | ~2019-11-23 | XMS | Encounter Summary ---
Demographics + + + | Address | [address] | | | [place] [address] | + + + | Home Phone [...] Team Providers + +------+ + | Care Recreational Vehicle Resort Manager Name | Role | Phone | [...] [address] | | | | | | ([facility]) | [place], [place] | | | | | | Procedures | [address] | | | | | | CT CHEST, | Phone: | | | | | | ABDOMEN AND | [phone] | | | | | | PELVIS W IV | Fax: | | | | | | CONTRAST | [phone] | | +--------+--------+ + + + + [...] 261 | | | | | | (HCC) | [place], [place] | | | | | | Procedures | [address] | | | | | | CT CHEST, | Phone: | | | | | | ABDOMEN AND | [phone] | | | | | | PELVIS W IV | Fax: | | | | | | CONTRAST | [phone] | | +--------+--------+ + + + + Encounter Details +--------+ + + + + | Date | Type | Department | Care Team | Description | +--------+ + + + + | 08/21/ | Hospital | Diagnostic Imaging | Marie Liz, | | | 2018 | Encounter | Services at [facility] | [address] | | | | | [address] [facility] | [place] [address] | | | | | Katherine French Mailcode: | [place] [address] | | | | | [address] [facility] | [phone] | | | | | [place], [place] | | | | | | [address] | | | | | | [phone] | | | +--------+ + + + [...] | CT CHEST, ABDOMEN | Routin | 08/21/2018 | Malignant neoplasm | Results for this | | AND PELVIS W IV | e | 3:00 PM | of lower third of | [...] (OMNIPAQUE) 350 mg | IV Push | 08/21/20 | 100 mL | | | | iodine/mL injection 100 mL 100 | | 18 2:57 | | | | | mL, intravenous, ONCE, 1 dose, | | PM PDT | | | | | 08/21/18 at 1545 | | | | | | + +---------+ +--------+------+------+ +---+---+ | | | +---+---+ documented in this encounter"
--- OUTSIDE RECORDS SUMMARY | ~2019-11-23 | XMS | Encounter Summary ---
Demographics + + + | Address | [address] | | | [place] [address] | + + + | Home Phone [...] Team Providers + +------+ + | Care Artist Representative Name | Role | Phone | + +------+ + | Luis Leiva DO | PCP | | + +------+ + Reason for Visit + + + | Reason | Comments | + + + | RT Clinical | | | Treatment Planning | | | Note | | + + + Encounter Details +--------+ + + + + | Date | Type | Department | Care Team | Description | +--------+ + + + + | 12/11/ | Documentati | Radiation Oncology | Holly Daniel, | RT Clinical | | 2018 | on | at [facility] [address] | [address] | Treatment Planning | | | | [address] | [address] | Note | | | | [id number] [facility] | [place], [place] | | | | | [facility], | [address] | | | | | [place] [address] | [phone] | | | | | [phone] | | | +--------+ + + + [...]
--- OUTSIDE RECORDS SUMMARY | ~2019-11-23 | XMS | Encounter Summary ---
Demographics + + + | Address | [address] | | | [place] [address] | + + + | Home Phone [...] Team Providers + +------+ + | Care Front Counter Attendant Name | Role | Phone | + +------+ + | Luis Leiva DO | PCP | | + +------+ + Reason for Visit + + + | Reason | Comments | + + + | Telephone follow-up | | + + + Encounter Details +--------+ + + + + | Date | Type | Department | Care Team | Description | +--------+ + + + + | 01/15/ | Telephone | Radiation Oncology | ElviDaniel roca, | Telephone follow-up | | 2018 | | at [facility] [address] | [address] | | | | | [place] | [address] | | | | | /[id number] | [place], [place] | | | | | [facility], | [address] | | | | | [place] [address] | [phone] | | | | | [phone] | | | +--------+ + + + [...]
--- OUTSIDE RECORDS SUMMARY | ~2019-11-23 | XMS | Encounter Summary ---
Demographics + + + | Address | [address] | | | [place] [address] | + + + | Home Phone [...] Team Providers + +------+ + | Care Blackener Name | Role | Phone | + +------+ + | Christos Olivarez MD | PCP | | + +------+ + Encounter Details +--------+ + + + + | Date | Type | Department | Care Team | Description | +--------+ + + + + | 08/16/ | Wedding Cake Designer | Hematology | Marie Liz, | Malignant neoplasm | | 2018 | | Oncology Study 3303 | [address] | of lower third of | | | | [address] | [address] | esophagus (HCC) | | | | Mailcode: CH7M | [place] [address] | (Primary Dx) | | | | [facility] | [phone] | | | | | and Monika, | | | | | | [facility] | | | | | | Floor [place], [place] | | | | | | [address] | | | | | | [phone] | | | +--------+ + + + [...] | + + + + + | [facility] DEPT OF | [address] | [place], [place] | | | CARDIOLOGY | [address] | [address] | | + + + + + [...] | | | LABORATORY | | | JAPANESE | | | SERVICES, | | | [...] | + + + + + | [facility] | [address] | [place] [address] | | | [address] | [address] [...] [facility] | [address] | [place] [address] | | | SERVICES, CORE | PARK [...] [facility] | [address] | [place] [address] | | | SERVICES, CORE | PARK [...] [facility] | [address] | [place] [address] | | | SERVICES, JUSTIN | ASHLEY [...] + + | Performing | Address | City/State/[facility] | Phone Number | | Organization | | | | + + + + + | MARIELA | [address] | [place] [address] | | | DIAGNOSTIC | [address] [...] [facility] | [address] | [place] [address] | | | SERVICES, CORE | PARK [...] | + + + + + | [facility] | [address] | [place] [address] | | | SERVICES, CORE | PARK [...] (L)Comment: | 2.4 - 4.2 pg/mL | [facility] | | | | REFERENCE [...] | | | this test in the [facility] | | | | | | Laboratory Test | | | | | | Directory | | | | | | ([facility]).Performed | | | | | | by [email or web address] | | | | | | Aaron Jackson, [facility] [place] | | | | | | [address] | | | | | | [phone].PagPop. | | | | | | [facility], Chandrakant Gasca MD, | | | [...] [facility] | [address] | [place], [place] | | | UN[facility] | | [address] | | + + + + + [...] | + + + + + | [facility] | [address] | [place] [address] | | | SERVICES, CORE | ASHLEY [...] | [facility] | | | GRAVITY | Ladson performed by | | LABORATORY | | [...] [facility] | [address] | [place] [address] | | | SERVICES, CORE | PARK [...] [facility] | [address] | [place] [address] | | | JUSTIN [address] | [address] | | | + + + + + documented in this encounter Visit Diagnoses + + | Diagnosis | + + | 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
--- OUTSIDE RECORDS SUMMARY | ~2019-11-23 | XMS | Encounter Summary ---
Demographics + + + | Address | [address] | | | [place] [address] | + + + | Home Phone [...] Providers + +------+ + | Care School Guidance Counselor Name | Role | Phone | + [...] | | | | | Procedures | [place], [place] | Health and | | | | | [place] | [address] | Healing, | | | | | SERVICES | Phone: | [address] | | | | | PROVIDED | [phone] | [place], [place] | | | | | PART OF [place] | Fax: | [phone] | | | | | INJ | [phone] | Phone: | | | | | [address] | | [phone] | | | | | [facility] [place] EST | | Fax: | | | | | PATIENT | | [phone] | | | | | LEVEL V | | | | | | | Study IRB: | | | | | | | [id number] Study | | | | | | [...] Description | +--------+---------+ + + + | 09/17/ | Office | Hematology/Medical | Marie Liz, | Malignant neoplasm | | 2018 | Visit | Oncology at [place] | [address] | of lower third of | | | | for Health & Healing | [address] | esophagus (HCC) | | | | [address] | [place] [address] | (Primary Dx) | | | | Mailcode: [place] | [phone] | | | | | for Health and | | | | | | Healing, [address] | | | | | | [place], [place] | | | | | | [address] | | | | | | [phone] | | | +--------+---------+ + + + [...] encounter Progress Notes Kerrie Luna, RN - 09/17/2018 10:20 AM PDT Research RN Note: Mr. Jacob Sapp presents today for C2D1 nivolumab vs placebo after signing consent to particip ate in [id number]: A Randomized, Multicenter, Double Blind, Phase III Study of Adjuvant Nivol umab or Placebo in Subjects with Resected Lower Esophageal, or Gastroesophageal Junction Can cer (CheckMate 577: CHECKpoint pathway and nivoluMab clinical Trial Evaluation 577). He was seen by Dr. Liz and myself. Looks well. OK to treat. OF NOTE: Prohibited medications: Labs were reviewed: yes ECO Accompanied today by: Baseline stool count: Baseline neuropathy: none Baseline weight: 70.2 kg IV access: PIV RD/SW referral: spanish medical interpreter at [facility] established Multi-D MD: Chemotherapy teaching: done per chemo binder and ICF My Chart access: active and encouraged Patient reports that neoadjuvant chemo was completed at [facility] in [place]. Radiation completed at [facility]. He reports the following medical and surgical history at baseline: Past Medical History: Diagnosis Date Cervical spinal stenosis 1997 Coronary artery disease 2007 diagnosed on angiogram when experienced chest pain - treated with medications, pain attr ibuted to esophageal spasm, never had WA or stent H/O Diverticulosis 1997 Hernia, hiatal, [...] topically to affected area PRN pain 06/2018 Csear velasquez oil 1-2 drops PO daily Health [...] intermittent, started 05/2018 Marie Murphy Md - 08/27 10:20 AM PDT Oncology Assessment: Cancer Staging Malignant [...] or no response, score 3) - 07/31/2018 [facility] Medical oncology evaluation- offered enrollment on Checkmate 577 trial, Nivo vs. Plac sabrina for adjuvant therapy, consent signed - 08/21/18 CT CAP 1. Since 03/22/2018, postsurgical changes of an esophagectomy with gastric pull-through, and interval removal of the jejunostomy tube. No evidence of recurrent or metastatic disease. 2. Small right-sided pleural effusion. - 09/03/18 Start INV therapy Nivolumab/placebo - 09/17/18 Cycle 2 Plan/ Recommendations: 1. 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 Neck pain - chronic - on vicodin prn with PCP - I encouraged him to continue management with his primary care provider given that this is not related to his prior malignancy. 3. High Cholesterol - recommend that he has lipid panel checked at home - may not need meds due to excessive weight loss following his cancer and surgery No orders of the defined types were placed in this encounter. No follow-up information. The patient is receiving chemotherapy which requires ongoing evaluation of toxicity due to cytotoxic therapy and assessment of disease status and disease related symptoms. Interval History: Jacob Sapp returns to clinic today for Chief Complaint Patient presents with Follow-up visit Since the last clinic visit, he started on investigational therapy. He reports some mild f atigue but reports this may also be due to a deer hunting trip, he has continued to be activ e, he denies any rash, abdominal pain or bloating, lower extremity edema, shortness of breat h or cough. Current Outpatient Prescriptions Medication Sig DULoxetine 30 [...] reviewed, see scanned document Physical Examination: BP 103/68 | Pulse 66 | Temp (Src) 36.6 C (97.9 F) (Oral) | RR 16 | Wt 68.4 kg (150 lb 1 1.2 oz) | SpO2 100% | BMI 22.91 kg/(m^2) ECOG PS: 1 Gen: Well-developed, well-nourished, [...] Labs: Lab Results Component Value Date NA 143 09/17/2018 K 4.5 09/17/2018 CL 105 09/17/2018 BICARB 25 09/17/2018 BUN 11 09/17/2018 CR 1.10 09/17/2018 GLU 174 09/17/2018 CA 9.5 09/17/2018 AST 39 09/17/2018 ALT 32 09/17/2018 AP 75 09/17/2018 TBILI 0.7 09/17/2018 TP 6.9 09/17/2018 ALB 3.4 09/17/2018 Lab Results Component Value Date WBC 4.17 09/17/2018 HB 12.1 09/17/2018 HCT 35.6 09/17/2018 PLT 175 09/17/2018 MCV 99.7 09/17/2018 RDW 44.9 09/17/2018 Marie Liz MD Clinical reverse engineer Medical Oncology and Hematology documented in this encou nter Plan of Treatment Not on filedocumented as of this encounter Visit Diagnoses + + | Diagnosis | + + | 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
--- OUTSIDE RECORDS SUMMARY | ~2019-11-23 | XMS | Encounter Summary ---
Demographics + + + | Address | [address] | | | [place] [address] | + + + | Home Phone | | + + + | Preferred Language | Unknown | + + + | Marital Status | | + + + | Islam Affiliation | CAT | + + + [...] Team Providers + +------+ + | Care Satellite Manager Name | Role | Phone | + +------+ + | Christos Olivarez MD | PCP | | + +------+ + Encounter Details +--------+ + + + + | Date | Type | Department | Care Team | Description | +--------+ + + + + | 03/25/ | Rehab Aide | Hematology/Medical | Krunal Godoy, | | | 2019 | | [facility] at [place] | ,PhD [address] | | | | | for Health & Healing | [place], [place] | | | | | [address] | [address] | | | | | Mailcode: [place] | [phone] | | | | | for Health and | | | | | | [facility] [address] | | | | | | [place], [place] | | | | | | [address] | | | | | | [phone] | | | +--------+ + + + [...]
--- OUTSIDE RECORDS SUMMARY | ~2019-11-23 | XMS | Encounter Summary ---
Demographics + + + | Address | [address] | | | [place] [address] | + + + | Home Phone [...] Team Providers + +------+ + | Care Tavern Car Attendant Name | Role | Phone | + +------+ + | Christos Olivarez MD | PCP | | + +------+ + Reason for Visit + + + | Reason | Comments | + + + | Chemotherapy | | + + + | Lab Draw [...] | | | | | Procedures | [place], [place] | Health and | | | | | [place] | [address] | Healing, | | | | | SERVICES | Phone: | [address] | | | | | PROVIDED | [phone] | [place], [place] | | | | | PART OF [place] | Fax: | [phone] | | | | | INJ | [phone] | Phone: | | | | | [address] | | [phone] | | | | | MG Study | | Fax: | | | | | IRB: [id number] | | [phone] | | | | | Study Title: [...] + + + + | 04/22/ | Hospital | Hematology/Medical | Onc, Gen [address] | | | 2019 | Encounter | Oncology at [facility] | [address] [place], | | | | | [address] | [place] [address] | | | | | Mailcode: Center | | | | | | for Health and | | | | | | [facility], [facility] [address] | | | | | | [place], [place] | | | | | | [address] | | | | | | [phone] | | | +--------+ + + + [...] + + + | Blood Pressure | 133/78 | 04/22/2019 5:25 PM | | | | | PDT | | + + + + + | Pulse | 68 | 04/22/2019 5:25 PM | | | | | PDT | | + + + + + | Temperature | 36.7 C (98 F) | 04/22/2019 5:25 PM | | | | | PDT | | + + + + + | Respiratory Rate | 18 | 04/22/2019 5:25 PM | | | | | PDT | | + + + + + | Oxygen Saturation | 100% | 04/22/2019 5:25 PM | | | | | PDT | | + + + + + | Inhaled Oxygen | - | - | | | Concentration | | | | + + + + + | Weight | 71.9 kg (158 lb 9.6 | 04/22/2019 3:44 PM | | | | oz) | PDT | | + + + + + | Height | - | - | | + + + + + | Body Mass Index | 24.11 | 12/24/2018 9:35 AM | | | [...] documented as of this encounter Progress Notes Dee Hickman RN - 04/22/2019 12:37 PM PDTChemotherapy Nurse Note Name: Jacob Sapp Date: 04/22/2019 Physician: Walt Allergies: Jacob is allergic to [...] ocol. Labs drawn by Starter RN, reviewed. Additional Study Lab drawn within 30 mins prior t o infusion at 1622 according to research document instructions. Nivolumab/placebo study drug checked with 2 RNs per protocol, positive blood return noted before and after infusion, inf usion completed without incident. PIV dc'd, tip intact; Pt dc home w/ family. Medication infused with 250ml NS sidearm bag. Refer to MAR and Onc Lines and Transfusions doc flowsheet for treatment details. documented in thi s encounter Plan of Treatment Not on filedocumented [...] 480 mg in | New Bag | 04/22/20 | 480 mg | 120 | | | INV NaCl 0.9% IV 480 mg, | | 19 4:41 | | mL/hr | | | intravenous, Administer over 30 | | PM PDT | | | | | Minutes, ONCE, 1 dose, Tue | | | | | | | 04/22/19 at 1600, Pt ID: , | | | | | | | Administer using a 0.2 micron | | | | | | | filter. Flush line with 15-20 mL | | | | | | | of normal saline. For | | | | | | | investigational use only, HIGH | | | | | | | ALERT MEDICATION IRB:[id number], | | | | | | | Protocol:[id number], Infuse using | | | | | | | 0.2 micron filter., | | | | | | + +---------+ +--------+-------+------+ +---+---+ | | | +---+---+ documented in this encounter"
--- OUTSIDE RECORDS SUMMARY | ~2019-11-23 | XMS | Encounter Summary ---
Demographics + + + | Address | [address] | | | [place] [address] | + + + | Home Phone [...] Team Providers + +------+ + | Care Bronze Chaser Name | Role | Phone | + [...] + + + | Closed | | Non [facility] | Diagnoses | [place], | Non-[facility] | | | | Department | Malignant | Eleonora Leger | Epic Dept | | | | | neoplasm of | MD [address] | | | | | | lower third | [address] | | | | | | of esophagus | [place], [place] | | | | | | ([facility]) | [address] | | | | | | Procedures | Phone: | | | | | | CONSULT TO | [phone] | | | | | | NON - [facility] | Fax: | | | | | | PROVIDER | [phone] | | +--------+--------+ + + + + Encounter Details +--------+ + + + + | Date | Type | Department | Care Team | Description | +--------+ + + + + | 05/27/ | Telephone | Digestive Health | Eleonora Ybarra, | | | 2018 | | [place] at [facility] [address] | [address] | | | | | [address] | [place] [facility] [place] [place] | | | | | Mailcode: [place] | [address] | | | | | for Health and | [phone] | | | | | [address] | | | | | | [facility] [place] | | | | | | [address] | | | | | | [phone] | | | +--------+ + + + [...]
--- OUTSIDE RECORDS SUMMARY | ~2019-11-23 | XMS | Encounter Summary ---
Demographics + + + | Address | [address] | | | [place] [address] | + + + | Home Phone [...] Providers + +------+ + | Care Manager Employment Name | Role | Phone | + [...] | 05/20/ | Clinical | Laboratory at [facility] | | Lab Draw | | 2019 | Support | [address] | | | | | Staff | [place], [place] | | | | | | [address] | | | | | | [phone] | | | +--------+ + + + [...] SERVICES, | | | | | | [facility] | | | | | | [...] | + + + + + | [facility] | [address] | [place] [address] | | | [facility] FOR | | | | | HEALTH + HEALING | | | | + + + + + [facility] - COMPLETE METABOLIC SET (05/20/2019 12:42 [...] LABORATORY | [address] | [place] [address] | | | [facility] | | | | | HEALTH [...] LABORATORY | | | | | | [facility], | | | | | | [...] [facility] | [address] | [place] [address] | | | TIMO, JUSTIN | [address] [...] | + + + + + | [facility] | [address] | [place] [address] | | | SERVICES, CORE | [address]SHLEY [...] | + + + + + | [facility] | [address] | [place] [address] | | | SERVICES, CORE | [address] | | | + + + + + documented in this encounter Visit Diagnoses + + | Diagnosis | + + | 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
--- OUTSIDE RECORDS SUMMARY | ~2019-11-23 | XMS | Encounter Summary ---
Demographics + + + | Address | [address] | | | [place] [address] | + + + | Home Phone [...] Providers + +------+ + | Care Hide Selector Name | Role | Phone | + +------+ + | Christos Olivarez MD | PCP | | + +------+ + Reason for Visit + + + | Reason | Comments | + + + | Refill Request | | + + + Encounter Details +--------+--------+ + + + | Date | Type | Department | Care Team | Description | +--------+--------+ + + + | 04/16/ | Refill | Hematology/Medical | Sergio Cr, | Refill Request | | 2019 | | [facility] at [place] | [place] [address] [facility] | | | | | for Health & Healing | [address] | | | | | [address] | [place], [place] | | | | | Mailcode: [place] | [address] | | | | | for Health and | [phone] | | | | | Healing, [place] [address] | | | | | | [place], [place] | | | | | | [address] | | | | | | [phone] | | | +--------+--------+ + + + [...]
--- OUTSIDE RECORDS SUMMARY | ~2019-11-23 | XMS | Encounter Summary ---
Demographics + + + | Address | [address] | | | [place] [address] | + + + | Home Phone [...] Team Providers + +------+ + | Care Legal Investigator Name | Role | Phone | + [...] + + + + | 10/28/ | Clinical | Laboratory at [facility] | | Lab Draw | | 2018 | Support | [address] | | | | | Staff | [place], [place] | | | | | | [address] | | | | | | [phone] | | | +--------+ + + + [...] as of this encounter Progress Notes Juanita Munoz RN - 10/28/2018 9:00 AM PSTLabs drawn via PIV and sent to lab. Pt matthew ated without incident. Pt discharged to provider visit. documented in this encounter Plan of Treatment Not on filedocumented as of this encounter Procedures + +--------+ + + + | Procedure Name | Priori | Date/Time | Associated Diagnosis | Comments | | | ty | | | | + +--------+ + + + | COMPLETE METABOLIC | Routin | 10/28/2018 | Malignant neoplasm | Results for this | | PANEL - OLP | e | 9:38 AM | of lower third of | procedure are in the | | | | PST | esophagus (HCC) | results section. | + +--------+ + + + | [facility] - COMPLETE | Routin | 10/28/2018 | Malignant neoplasm | Results for this | | METABOLIC SET | e | 9:38 AM | of lower third of | procedure are in the | | | | PST | esophagus (HCC) | results section. | + +--------+ + + + | CBC AND AUTO DIFF - | Routin | 10/28/2018 | Malignant neoplasm | Results for this | | [facility] | e | 9:37 AM | of lower third of | procedure are in the | | | | PST | esophagus (HCC) | results section. | + +--------+ + + + | CBC WITH AUTO DIFF - | Routin | 10/28/2018 | Malignant neoplasm | Results for this | | OLP | e | 9:37 AM | of lower third of | procedure are in the | | | | PST | esophagus (HCC) | results section. | + +--------+ + + + | LDH TOTAL - OLP | Routin | 10/28/2018 | Malignant neoplasm | Results for this | | | e | 8:50 AM | of lower third of | procedure are in the | | | | PST | esophagus (HCC) | results section. | + +--------+ + + + | UA, DIPSTICK ONLY | Routin | 10/28/2018 | Malignant neoplasm | Results for this | | | e | 8:50 AM | of esophagus, | procedure are in the | | | | PST | unspecified location | results section. | | | | | (HCC) | | + +--------+ + + + | LIPASE, PLASMA | Routin | 10/28/2018 | Malignant neoplasm | Results for this | | | e | 8:50 AM | of lower third of | procedure are in the | | | | PST | esophagus (HCC) | results section. | + +--------+ + + + | LDH TOTAL, PLASMA | Routin | 10/28/2018 | Malignant neoplasm | Results for this | | | e | 8:50 AM | of lower third of | procedure are in the | | | | PST | esophagus (HCC) | results section. | + +--------+ + + + | AMYLASE, PLASMA | Routin | 10/28/2018 | Malignant neoplasm | Results for this | | | e | 8:50 AM | of lower third of | procedure are in the | | | | PST | esophagus (HCC) | results section. | + +--------+ + + + | NURSING | Routin | 10/28/2018 | Malignant neoplasm | | | COMMUNICATION #1 - | e | 8:49 AM | of lower third of | | | [place] | | PST | esophagus (HCC) | | + +--------+ + + + documented in this encounter Results [facility] - COMPLETE METABOLIC SET (10/28/2018 9:38 AM PST) + +---------+ + + + | Component | Value | Ref Range | Performed | Pathologist | | | | | At | Signature | + +---------+ + + + | GLUCOSE, | 134 (H) | 70 - 99 mg/dL | [...] +---------+ + + + | CREATININE | 1.00 | 0.70 - 1.30 | [facility] | | | PLASMA | | mg/dL | LABORATORY | | | (LAB) | | | SERVICES, | | | | | | [facility] | [facility] + | | | | | | HEALING | | + +---------+ + + + | SODIUM, | 140 | 134 - 143 | [facility] | [...] +---------+ + + + | TOTAL | 7.3 | 6.1 - 7.9 g/dL | [facility] | | | PROTEIN, | | | LABORATORY | | | PLASMA | | | SERVICES, | | | (LAB) | | | [facility] | | | | [facility] + | | | | | | HEALING | | + +---------+ + + + | ALBUMIN, | 3.8 | 3.5 - 4.7 g/dL | [facility] | | | PLASMA | | | LABORATORY | | | (LAB) | | | SERVICES, | | | | | | [facility] | [facility] | | [facility] + | | | | | | HEALING | | + +---------+ + + + | ALK PHOS | 80 | 43 - 92 U/L | [facility] | | | | | | LABORATORY | | | | | | SERVICES, | | | | | | [facility] | | | [facility] + | | | | | | HEALING | | + +---------+ + + + | AST(SGOT) | 43 (H) | <=41 U/L | [facility] | | | | | | LABORATORY | | | | | | SERVICES, | | | | | | [facility] | | | | [facility] + | | | | | | HEALING | | + +---------+ + + + | ALT (SGPT) | 38 | <=60 U/L | [facility] | | [...] LABORATORY | [address] | [place] [address] | | | [facility] | | | | | HE[facility] + HEALING | | | | + + + + + CBC AND AUTO DIFF - [facility] (10/28/2018 9:37 AM PST) + + + + + + | Component | Value | Ref Range | Performed | Pathologist | | | | | At | Signature | + + + + + + | WHITE CELL | 5.28 | 3.50 - 10.80 | [facility] | | | COUNT | | K/cu mm | LABORATORY | | | | | | [facility], | | | | | | [place] [facility] | | | | | | HEALTH + | | | | | | HEALING | | + + + + + + | RED CELL | 3.68 (L) | 4.50 - 6.00 | [facility] | | | COUNT | | M/cu mm | LABORATORY | | | | | | SERVICES, | | | | | | [facility] | | | | [facility] + | | | | | | HEALING | | + + + + + + | HEMOGLOBIN | 12.4 | g/dL | [facility] | | | | | | LABORATORY | | | | | | SERVICES, | | | | | | [facility] | | [facility] | | | [facility] + | | | | | | HEALING | | + + + + + + | HEMATOCRIT | 35.1 (L) | 41.0 - 53.0 % | [facility] | | | | | | LABORATORY | | | | | | SERVICES, | | | | | | [facility] | [facility] | | | [facility] + | | | | | | HEALING | | + + + + + + | MCV | 95.4 | 80.0 - 100.0 fL | [facility] [...] + + + | RDW SD | 45.3 | 35.1 - 46.3 fL | [facility] | | | | | | LABORATORY | | | | | | SERVICES, | | | | | | [facility] | | | | | | [facility] + | | | | | | HEALING | | + + + + + + | PLATELET | 220 | 150 - 400 K/cu | [facility] [...] + + + + | NEUTROPHIL | 72.3 (H) | 50.0 - 70.0 % | [facility] | | | % | | | LABORATORY | | | | | | SERVICES, | | | | | | [facility] | | | | | | [facility] + | | | | | | HEALING | | + + + + + + | LYMPHOCYTE | 17.4 (L) | 18.0 - 42.0 % | [facility] | | | % | | | LABORATORY | | | | | | SERVICES, | | | | | | [facility] | | | | | | [facility] + | | | | | | HEALING | | + + + + + + | MONOCYTE % | 7.8 | 3.5 - 9.0 % | [facility] | | | | | | LABORATORY | | | | | | SERVICES, | | | | | | [facility] | | | | | | [facility] + | | | | | | HEALING | | + + + + + + | EOS % | 2.3 | 1.0 - 3.0 % | [facility] | | | | | | LABORATORY | | | | | | SERVICES, | | | | | | [facility] | | | | | | [facility] + | | | | | | HEALING | | + + + + + + | BASO % | 0.2 | 0.0 - 2.0 % | [facility] | | | | | | LABORATORY | | | | | | SERVICES, | | | | | | [facility] | | | | | | [facility] + | | | | | | HEALING | | + + + + + + | NEUTROPHIL | 3.82 | 1.80 - 7.70 | [facility] | | | # | | K/cu mm | LABORATORY | | | | | | SERVICES, | | | | | | [facility] | | | | | | [facility] + | | | | | | HEALING | | + + + + + + | LYMPHOCYTE | 0.92 (L) | 1.00 - 4.80 | [facility] | | | # | | K/cu mm | LABORATORY | | | | | | SERVICES, | | | | | | [facility] | | | | | | [facility] + | | | | | | HEALING | | + + + + + + | MONOCYTE # | 0.41 | 0.10 - 0.90 | [facility] | | | | | K/cu mm | LABORATORY | | | | | | SERVICES, | | | | | | [facility] | | | | | | [facility] + | | | | | | HEALING | | + + + + + + | EOS # | 0.12 | 0.00 - 0.50 | [facility] | [...] | + + + + + | [facility] | [address] | [place] [address] | | | SERVICES, [place] [facility] | | | | | HEALTH + HEALING | | | | + + + + + AIDAN PRATHER ONLY (10/28/2018 8:50 AM PST) + + + [...] | [facility] | | | GRAVITY | Ronda performed by | | LABORATORY | | [...] LABORATORY | [address] | [place] [address] | | | SERVICES, CORE | [address] | | | + + + + + LDH TOTAL, PLASMA (10/28/2018 8:50 AM PST) + +---------+ + + + | Component | Value | Ref Range | Performed | Pathologist | | | | | At | Signature | + +---------+ + + + | LD TOTAL, | 160 | <=250 U/L | [facility] | | [...] [facility] | [address] | [place] [address] | | | SERVICES, CORE | [address] | | | + + + + + LIPASE, PLASMA (10/28/2018 8:50 AM PST) + +--------+ + + + | Component | Value | Ref Range | Performed | Pathologist | | | | | At | Signature | + +--------+ + + + | LIPASE | 82 (L) | 152 - 353 U/L | [...] [facility] | [address] | [place] [address] | | | SERVICES, CORE | [address] | | | + + + + + AMYLASE, PLASMA (10/28/2018 8:50 AM PST) + +-------+ + + + [...] | + + + + + | [facility] | [address] | [place] [address] | | | SERVICES, CORE | [address] [...]
--- OUTSIDE RECORDS SUMMARY | ~2019-11-23 | XMS | Encounter Summary ---
Demographics + + + | Address | [address] | | | [place] [address] | + + + | Home Phone | | + + + | Preferred Language | Unknown | + + + | Marital Status | | + + + | Methodist Affiliation | CAT | + + + [...] Team Providers + +------+ + | Care Flower Pot Press Operator Name | Role | Phone [...] | | | | | [place], | | | | | | [place] [address] | | | +--------+ + + + [...]
--- OUTSIDE RECORDS SUMMARY | ~2019-11-23 | XMS | Encounter Summary ---
Demographics + + + | Address | [address] | | | [place] [address] | + + + | Home Phone [...] Team Providers + +------+ + | Care Vascular Ultrasound Technician Name | Role | Phone | [...] | [address] | [address] [facility] | | | | | lower third | Veterans | [facility] | | | | | of esophagus | [facility] | Rd | | | | | Esophagus | Road | [place], [place] | | | | | Ca | [facility] [place] | [address] | | | | | Procedures | [address] | Phone: | | | | | Consult, | Phone: | [phone] | | | | | Sage Wilkins | [phone] | Fax: | | | | | | Fax: | [phone] | | | | | | [phone] | | +--------+--------+ + + + + Encounter Details +--------+ + + + + | Date | Type | Department | Care Team | Description | +--------+ + + + + | 12/31/ | Hospital | Radiation Oncology | | | | 2018 | Encounter | at [facility] [address] | | | | | | [place] | | | | | | [id number] [facility] | | | | | | [facility] [place], | | | | | | [place] [address] | | | | | | [phone] | | | +--------+ + + + [...]
--- OUTSIDE RECORDS SUMMARY | ~2019-11-23 | XMS | Clinical Summary ---
Demographics + + + | Address | [address] | | | [place] [address] | + + + | Home Phone | | + + + | Preferred Language | Unknown | + + + | Marital Status | | + + + | Anabaptism Affiliation | 1041 | + + + | Race | Unknown | + + + | Ethnic Group | Unknown | + + + Author + + + | Author | [facility] (Historical as of | | | 07-12-19) | + + + | Organization | [facility] (Historical as of | | | 07-12-19) | + + + | Address | Unknown | + + + | Phone | Unavailable | + + + Support + + + + + | Name | Relationship | Address | Phone | + + + + + | Mauricio Sapp | ECON | [address] | | | | | [place], [place] | | | | | [address] | | + + + + + Care Team Providers + +------+ + | Care Director Of Undergraduate Admissions Name | Role | Phone | + +------+ + | Jose Leiva DO | PP | | + +------+ + Allergies Not on File Current Medications Not on file Active Problems Not [...] on file | | + + + Plan of Treatment Not on file Results Not on filefrom Last 3 Months"
--- OUTSIDE RECORDS SUMMARY | ~2019-11-23 | XMS | Encounter Summary ---
Demographics + + + | Address | [address] | | | [place] [address] | + + + | Home Phone [...] Providers + +------+ + | Care Laborer Airport Maintenance Name | Role | Phone | + [...] Deion | radiotherapy | | | | [address] | [address] | (Primary Dx) | | | | [id number] [facility] | [place], [place] | | | | | [facility], | [address] | | | | | [place] [address] | [phone] | | | | | [phone] | | | +--------+---------+ + + + [...] Visit Note ID: [id number] y.o. 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
--- OUTSIDE RECORDS SUMMARY | ~2019-11-23 | XMS | Encounter Summary ---
Demographics + + + | Address | [address] | | | [place] [address] | + + + | Home Phone [...] Team Providers + +------+ + | Care Ui Developer Name | Role | Phone | [...] [address] | | | | | | ([facility]) | [place], [place] | | | | | | Procedures | [address] | | | | | | CT CHEST, | Phone: | | | | | | ABDOMEN AND | [phone] | | | | | | PELVIS W IV | Fax: | | | | | | CONTRAST | [phone] | | +--------+--------+ + + + + Encounter Details +--------+ + + + + | Date | Type | Department | Care Team | Description | +--------+ + + + + | 08/16/ | Garbage Truck Driver | Hematology | Marie Liz, | Malignant neoplasm | | 2018 | | Oncology Study [address] | [address] | of lower third of | | | | [address] | [address] | esophagus (HCC) | | | | Mailcode: CH7M | [place] [address] | (Primary Dx) | | | | [place] for [facility] | [phone] | | | | | and Healing, | | | | | | Building [address] | | | | | | Floor [facility] [place] | | | | | | [address] | | | | | | [phone] | | | +--------+ + + + [...]
--- OUTSIDE RECORDS SUMMARY | ~2019-11-23 | XMS | Encounter Summary ---
Demographics + + + | Address | [address] | | | [place] [address] | + + + | Home Phone [...] Author | [facility] | + + + | Organization | [facility] | + + + | Address | [...] Team Providers + +------+ + | Care Bowling Or Skating Front Desk Clerk Name | Role | Phone | [...] | [address] | [address] [facility] | | | | | lower third | Veterans | [facility] | | | | | of esophagus | [facility] | Rd | | | | | Esophagus | Road | [facility] [place] | | | | | Ca | [facility] [place] | [address] | | | | | Procedures | [address] | Phone: | | | | | Consult, | Phone: | [phone] | | | | | Sage Wilkins | [phone] | Fax: | | | | | | Fax: | [phone] | | | | | | [phone] | | +--------+--------+ + + + + Encounter Details +--------+ + + + + | Date | Type | Department | Care Team | Description | +--------+ + + + + | 01/10/ | Hospital | Radiation Oncology | | | | 2018 | Encounter | at [facility] [address] | | | | | | [place] | | | | | | [id number] [facility] | | | | | | HOSPITAL [place], | | | | | | [place] [address] | | | | | | [phone] | | | +--------+ + + + [...]
--- OUTSIDE RECORDS SUMMARY | ~2019-11-23 | XMS | Encounter Summary ---
Demographics + + + | Address | [address] | | | [place] [address] | + + + | Home Phone [...] Team Providers + +------+ + | Care Offset Proof Press Operator Name | Role | Phone [...] | | | neoplasm of | ,PhD [address] | | | | | | lower third | [address] | | | | | | of esophagus | [place], | | | | | | (HCC) | [place] | | | | | | Procedures | [address] | | | | | | CT CHEST, | Phone: | | | | | | ABDOMEN AND | [phone] | | | | | | PELVIS W IV | Fax: | | | | | | CONTRAST | [phone] | | + +--------+ + + + + Encounter Details +--------+ + + + + | Date | Type | Department | Care Team | Description | +--------+ + + + + | 07/22/ | Business Continuity Consultant | Hematology | Krunal Godoy, | Malignant neoplasm | | 2019 | | Oncology Study [address] | ,PhD [address] | of lower third of | | | | [address] | Ave [place], [place] | esophagus (HCC) | | | | Mailcode: CH7M | [address] | (Primary Dx) | | | | [place] for [facility] | [phone] | | | | | and Healing, | | | | | | Building [address], | | | | | | Floor [place], [place] | | | | | | [address] | | | | | | [phone] | | | +--------+ + + + [...] Kaveh Rodriguez MD 08/13/2019 11:16 AM | |VESSELS: Scattered atherosclerotic [...]
--- OUTSIDE RECORDS SUMMARY | ~2019-11-23 | XMS | Encounter Summary ---
Demographics + + + | Address | [address] | | | [place] [address] | + + + | Home Phone [...] Providers + +------+ + | Care Airport Operations Supervisor Name | Role | Phone | + +------+ + | Christos Olivarez MD | PCP | | + +------+ + Encounter Details +--------+ + + + + | Date | Type | Department | Care Team | Description | +--------+ + + + + | 04/10/ | Procedure | 6A Intra Op [address] | | | | 2018 | Pass | [address] | | | | | | Rd [facility] | | | | | | Hospital Admitting | | | | | | Desk Located on the | | | | | | 9th floor | | | | | | [place], [place] | | | | | | [address] | | | +--------+ + + + [...]
--- OUTSIDE RECORDS SUMMARY | ~2019-11-23 | XMS | Encounter Summary ---
Demographics + + + | Address | [address] | | | [place] [address] | + + + | Home Phone [...] Team Providers + +------+ + | Care Talent Recruiter Name | Role | Phone | + [...] | | | neoplasm of | ,PhD [address] | | | | | | lower third | [address] | | | | | | of esophagus | [place], | | | | | | (HCC) | [place] | | | | | | Procedures | [address] | | | | | | CT CHEST, | Phone: | | | | | | ABDOMEN AND | [phone] | | | | | | PELVIS W IV | Fax: | | | | | | CONTRAST | [phone] | | + +--------+ + + + + Encounter Details +--------+ + + + + | Date | Type | Department | Care Team | Description | +--------+ + + + + | 07/22/ | Leather Goods Assembler | Hematology | Krunal Godoy, | Malignant neoplasm | | 2019 | | Oncology Study [address] | ,PhD [address] | of lower third of | | | | [address] | Ave [place], [place] | esophagus (HCC) | | | | Mailcode: CH7M | [address] | (Primary Dx) | | | | [place] for [facility] | [phone] | | | | | and Healing, | | | | | | Building [address], | | | | | | Floor [place], [place] | | | | | | [address] | | | | | | [phone] | | | +--------+ + + + [...]
--- OUTSIDE RECORDS SUMMARY | ~2019-11-23 | XMS | Encounter Summary ---
Demographics + + + | Address | [address] | | | [place] [address] | + + + | Home Phone [...] Team Providers + +------+ + | Care Strawhat Inspector And Packer Name | Role | Phone | + +------+ + | Christos Olivarez MD | PCP | | + +------+ + Reason for Visit +--------+ + | Reason | Comments | +--------+ + | Other | | +--------+ + Encounter Details +--------+ + + + + | Date | Type | Department | Care Team | Description | +--------+ + + + + | 07/21/ | Telephone | Center for | Lila Dorantes, | Other | | 2019 | | Hematologic | SALES REPRESENTATIVE GAS SERVICE [address] | | | | | Malignancies at [facility] | [facility] | | | | | [address] | [place] [address] | | | | | Mailcode: [place] | | | | | | for Health and | | | | | | [facility], [facility] [address] | | | | | | [place], [place] | | | | | | [address] | | | | | | [phone] | | | +--------+ + + + [...]
--- OUTSIDE RECORDS SUMMARY | ~2019-11-23 | XMS | Encounter Summary ---
Demographics + + + | Address | [address] | | | [place] [address] | + + + | Home Phone [...] Team Providers + +------+ + | Care Maintenance Shop Welder Name | Role | Phone | + [...] | [address] | [address] [facility] | | | | | lower third | Veterans | [facility] | | | | | of esophagus | [facility] | Rd | | | | | Esophagus | Road | [place], [place] | | | | | Ca | [facility] [place] | [address] | | | | | Procedures | [address] | Phone: | | | | | Consult, | Phone: | [phone] | | | | | Sage Wilkins | [phone] | Fax: | | | | | | Fax: | [phone] | | | | | | [phone] | | +--------+--------+ + + + + Encounter Details +--------+ + + + + | Date | Type | Department | Care Team | Description | +--------+ + + + + | 01/01/ | Hospital | Radiation Oncology | | | | 2018 | Encounter | at [facility] [address] | | | | | | [place] | | | | | | [id number] [facility] | | | | | | HOSPITAL [place], | | | | | | [place] [address] | | | | | | [phone] | | | +--------+ + + + [...]
--- OUTSIDE RECORDS SUMMARY | ~2019-11-23 | XMS | Encounter Summary ---
Demographics + + + | Address | [address] | | | [place] [address] | + + + | Home Phone [...] Team Providers + +------+ + | Care Parts Sales Associate Name | Role | Phone | + +------+ + | Luis Leiva DO | PCP | | + +------+ + Encounter Details +--------+ + + + + | Date | Type | Department | Care Team | Description | +--------+ + + + + | 03/28/ | Telephone | [facility] | Rodrigo Merrill, | | | 2018 | | Center at [address] | Philip Woods MD | | | | | [address] | | | | | | Mailcode: [place] | | | | | | for Health and | | | | | | Healing, [address] | | | | | | [place], [place] | | | | | | [address] | | | | | | [phone] | | | +--------+ + + + [...]
--- OUTSIDE RECORDS SUMMARY | ~2019-11-23 | XMS | Encounter Summary ---
Demographics + + + | Address | [address] | | | [place] [address] | + + + | Home Phone | | + + + | Preferred Language | Unknown | + + + | Marital Status | | + + + | Nondenominational Affiliation | CAT | + + + [...] Team Providers + +------+ + | Care Carpet Yarn Winder Operator Name | Role | Phone | [...] | 2018 | on | Oncology at [facility] | [address] | therapy | | | | [address] | [place], [place] | | | | | Mailcode: [place] | [address] | | | | | for Health and | [phone] | | | | | [facility] | | | | | | [place], [place] | | | | | | [address] | | | | | | [phone] | | | +--------+ + + + [...]
--- OUTSIDE RECORDS SUMMARY | ~2019-11-23 | XMS | Encounter Summary ---
Demographics + + + | Address | [address] | | | [place] [address] | + + + | Home Phone [...] + + | Author | [facility] | + + + | Organization | [facility] | + + + | [...] Team Providers + +------+ + | Care Tire Builder Name | Role | Phone | [...] Request | | Radiology | Diagnoses | Agusto, | | | | | | Malignant | Marie Ramirez MD | | | | | | neoplasm of | [address] | | | | | | esophagus, | [address] | | | | | | unspecified | [address] | | | | | | location | [place], [place] | | | | | | ([facility]) | [address] | | | | | | Procedures | Phone: | | | | | | CT CHEST, | [phone] | | | | | | ABDOMEN AND | Fax: | | | | | | PELVIS W IV | [phone] | | | | | | CONTRAST | | | + +--------+ + + + + Encounter Details +--------+ + + + + | Date | Type | Department | Care Team | Description | +--------+ + + + + | 11/07/ | [facility] [employer] | Hematology | Marie Liz, | Malignant neoplasm | | 2018 | | Oncology Study 3303 | [address] | of esophagus, | | | | [address] | Road [address] | unspecified location | | | | Mailcode: CH7M | [place] [address] | ([facility]) (Primary Dx) | | | | [place] [facility] | [phone] | | | | | and Healing, | | | | | | Building [address], [facility] | | | | | | Floor [place], [place] | | | | | | [address] | | | | | | [phone] | | | +--------+ + + + [...] CHEST, ABDOMEN AND PELVIS W IV CONTRAST (11/27/2018 9:22 AM PST) + + | Specimen | + + | | + + + + + | Narrative | Performed At | + + + | EXAM: CT of the chest, abdomen and pelvis WITH intravenous contrast. | [facility] | | HISTORY: Malignant neoplasm of lower third of esophagus (HCC) | RADIOLOGY VOICE | | COMPARISON: 08/21/2018 TECHNIQUE: CT of the chest, abdomen and | RECOGNITION 2 | | pelvis WITH intravenous contrast. Coronal and sagittal reformats were | | | generated and reviewed. FINDINGS: CHEST: The heart and great | | | vessels are unremarkable. There is a small right pleural effusion, | | | decreased since the prior exam. No suspicious axillary, hilar or | | | mediastinal lymphadenopathy. Postsurgical changes of an esophagectomy | | | with gastric pull-through again noted, with numerous surgical clips at | | | the GE junction. Suture line is noted along the anterior portion of | | | the conduit, and appears intact. Small hyperdensities noted layering | | | dependently within the mid conduit, are likely retained swallowed | | | pills/food. LIVER: Unchanged small hepatic hypodensities, | | | incompletely evaluated, however favored to represent benign | | | cysts/hemangiomas. BILIARY: The gallbladder is surgically absent. | | | Mild intra and extrahepatic biliary dilation is unchanged. PANCREAS: | | | Unremarkable. SPLEEN: Unremarkable. ADRENALS: Unremarkable. | | | KIDNEYS/URETERS: Stable bilateral simple renal cysts. PELVIC | | | ORGANS/BLADDER: Prostatomegaly. Unremarkable bladder and seminal | | | vesicles. GI TRACT: Esophagectomy with gastric conduit pull | | | through as described above. No dilated loops of large or small bowel. | | | PERITONEUM: Trace free fluid layering in the pelvis. There is new | | | indistinct nodularity and thickening noted in the left upper quadrant | | | peritoneum and mesentery, anterior to the transverse colon/sigmoid | | | flexure (1:119). LYMPH NODES: No lymphadenopathy. VESSELS: | | | Moderate scattered atherosclerotic calcifications throughout the | | | abdominal aorta and proximal iliacs. BONES AND SOFT TISSUES: No | | | suspicious osseous lesions. IMPRESSION: 1. Since 05/21/2018, | | | stable post surgical changes of an esophagectomy with gastric | | | pull-through. No clear evidence of recurrent or metastatic disease. | | | Mild nodularity/stranding in the left subphrenic omentum is | | | nonspecific however close attention is recommended to exclude | | | developing peritoneal disease. 2. Small left pleural effusion, | | | decreased in size. 3. Dependently layering pills/ingested food | | | seen in the mid conduit may indicate an element of stasis. I have | | | personally reviewed the images and, if necessary, edited the report. I | | | agree with the report as now presented. Final signature: Shahrzad Bond | | | MD Latonia 11/27/2018 11:44 AM Preliminary: Armin Philip | | | MD Jeannie 11/27/2018 11:29 AM Dictation initiated: Armin Philip | | | MD Jeannie 11/27/2018 9:30 AM | | + + + + + | Procedure Note | + + | Service Account, Radiant Res In Interface - 11/27/2018 11:47 AM PST EXAM: CT of the | | chest, abdomen and pelvis WITH intravenous contrast. HISTORY: Malignant neoplasm of | | lower third of esophagus (HCC) COMPARISON: 08/21/2018 TECHNIQUE: CT of the chest, | | abdomen and pelvis WITH intravenous contrast. Coronal and sagittal reformats were | | generated and reviewed. FINDINGS: CHEST: The heart and great vessels are unremarkable. | | There is a small right pleural effusion, decreased since the prior exam. No suspicious | | axillary, hilar or mediastinal lymphadenopathy. Postsurgical changes of an esophagectomy | | with gastric pull-through again noted, with numerous surgical clips at the GE junction. | | Suture line is noted along the anterior portion of the conduit, and appears intact. | | Small hyperdensities noted layering dependently within the mid conduit, are likely | | retained swallowed pills/food. LIVER: Unchanged small hepatic hypodensities, | | incompletely evaluated, however favored to represent benign cysts/hemangiomas.BILIARY: | | The gallbladder is surgically absent. Mild intra and extrahepatic biliary dilation is | | unchanged.PANCREAS: Unremarkable. SPLEEN: Unremarkable.ADRENALS: | | Unremarkable.KIDNEYS/URETERS: Stable bilateral simple renal cysts.PELVIC ORGANS/BLADDER: | | Prostatomegaly. Unremarkable bladder and seminal vesicles. GI TRACT: Esophagectomy with | | gastric conduit pull through as described above. No dilated loops of large or small | | bowel.PERITONEUM: Trace free fluid layering in the pelvis. There is new indistinct | | nodularity and thickening noted in the left upper quadrant peritoneum and mesentery, | | anterior to the transverse colon/sigmoid flexure (1:119). LYMPH NODES: No | | lymphadenopathy.VESSELS: Moderate scattered atherosclerotic calcifications throughout | | the abdominal aorta and proximal iliacs. BONES AND SOFT TISSUES: No suspicious osseous | | lesions. IMPRESSION: 1. Since 05/21/2018, stable post surgical changes of an | | esophagectomy with gastric pull-through. No clear evidence of recurrent or metastatic | | disease. Mild nodularity/stranding in the left subphrenic omentum is nonspecific however | | close attention is recommended to exclude developing peritoneal disease. 2. Small left | | pleural effusion, decreased in size. 3. Dependently layering pills/ingested food seen | | in the mid conduit may indicate an element of stasis. I have personally reviewed the | | images and, if necessary, edited the report. I agree with the report as now presented. | | Final signature: Shahrzad Lincoln MD 11/27/2018 11:44 AM Preliminary: Armin Philip | | MD Jeannie 11/27/2018 11:29 AM Dictation initiated: Armin Dennis MD | | 11/27/2018 9:30 AM | | | |1. Since 05/21/2018, stable post surgical changes of an esophagectomy with gastric pull-thro ugh. No clear evidence of recurrent or metastatic disease. Mild nodularity/stranding in the left subphrenic omentum is | |nonspecific however close attention is recommended to exclude developing peritoneal disease . | | | |2. Small left pleural effusion, decreased in size. | | | |3. Dependently layering pills/ingested food seen in the mid conduit may indicate an element of stasis. | | | |I have personally reviewed the images and, if necessary, edited the report. I agree with th e report as now presented. | | | |Final signature: Shahrzad Lincoln MD 11/27/2018 11:44 AM | |Preliminary: Armin Dennis MD 11/27/2018 11:29 AM | |Dictation initiated: Armin Dennis MD 11/27/2018 9:30 AM | + + + +---------+ + [...]
--- OUTSIDE RECORDS SUMMARY | ~2019-11-23 | XMS | Encounter Summary ---
Demographics + + + | Address | [address] | | | [place] [address] | + + + | Home Phone | | + + + | Preferred Language | Unknown | + + + | Marital Status | | + + + | Islam Affiliation | CAT | + + + | Race | White | + + + | Ethnic Group | Not or | + + + Author + + + | Author | [facility] | + + + | Organization | [facility] | + + + | [...] Team Providers + +------+ + | Care Psychiatric Np Name | Role | Phone | + +------+ + | Christos Olivarez MD | PCP | | + +------+ + Encounter Details +--------+ + + + + | Date | Type | Department | Care Team | Description | +--------+ + + + + | 09/30/ | [employer] | Hematology | Marie Liz, | Malignant neoplasm | | 2018 | | Oncology Study 3303 | [address] | of esophagus, | | | | [address] | [address] | unspecified location | | | | Mailcode: CH7M | [place] [address] | ([facility]) (Primary Dx) | | | | [facility] | [phone] | | | | | and Monika, | | | | | | [facility] | | | | | | Floor [place], [place] | | | | | | [address] | | | | | | [phone] | | | +--------+ + + + [...] | Blood Draw | e | of esophagus, | (Approximate), | | | | | unspecified location | Expires: 10/30/2019 | | | | | (HCC) | | + + +--------+ + + documented as of this encounter Visit Diagnoses + + | Diagnosis | + + | Malignant neoplasm of esophagus, unspecified location (HCC) - Primary | + + documented in this encounter"
--- OUTSIDE RECORDS SUMMARY | ~2019-11-23 | XMS | Encounter Summary ---
Demographics + + + | Address | [address] | | | [place] [address] | + + + | Home Phone [...] Providers + +------+ + | Care Home Energy Consultant Name | Role | Phone | + +------+ + | Christos Olivarez MD | PCP | | + +------+ + Encounter Details +--------+ + + + + | Date | Type | Department | Care Team | Description | +--------+ + + + + | 01/22/ | Plate Drying Machine Tender | Hematology | Krunal Godoy, | Malignant neoplasm | | 2019 | | Oncology Study 3303 | ,PhD [address] | of abdominal | | | | [address] | [place], [place] | esophagus (HCC) | | | | Mailcode: CH7M | [address] | (Primary Dx) | | | | [facility] | [phone] | | | | | and Monika, | | | | | | [facility] | | | | | | [place], [place] | | | | | | [address] | | | | | | [phone] | | | +--------+ + + + [...] | + + + + + | [facility] | [address] | [place] [address] | | | SERVICES, CORE | [address] [...] [facility] | [address] | [place] [address] | | | SERVICES, CORE | PARK [...] + + + + + | [facility] | [address] | [place] [address] | | | SERVICES, CORE | [address] | | | + + + + + documented in this encounter Visit Diagnoses + + | Diagnosis | + + | 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
--- OUTSIDE RECORDS SUMMARY | ~2019-11-23 | XMS | Encounter Summary ---
Demographics + + + | Address | [address] | | | [place] [address] | + + + | Home Phone | | + + + | Preferred Language | Unknown | + + + | Marital Status | | + + + | Rastafarian Affiliation | CAT | + + + | Race | White | + + + | Ethnic Group | Not or | + + + Author + + + | Author | [facility] | + + + | Organization | [facility] | + + + | Address [...] Team Providers + +------+ + | Care Can Operator Name | Role | Phone | [...] | | | | | Procedures | [place], [place] | Health and | | | | | [place] | [id number] | Healing, | | | | | SERVICES | Phone: | Building [address] | | | | | PROVIDED | [phone] | [place], [place] | | | | | PART OF [place] | Fax: | [address] | | | | | INJ | [phone] | Phone: | | | | | [address] | | [phone] | | | | | MG ID EST | | Fax: | | | | | PATIENT | | [phone] | | | | | LEVEL V | | | | | | | Study IRB: | | | | | | | [id number] Study | | | | | | [...] | 2018 | Visit | Oncology at [place] | [address] | of lower third of | | | | for Health & Healing | Road [address] | esophagus (HCC) | | | | [address] | [place] [address] | (Primary Dx) | | | | Mailcode: [place] | [phone] | | | | | for Health and | | | | | | Healing, [address] | | | | | | [place], [place] | | | | | | [address] | | | | | | [phone] | | | +--------+---------+ + + + [...] after signing consent to particip ate in [id number]: A Randomized, Multicenter, Double Blind, Phase III [...] 70.2 kg IV access: PIV RD/SW referral: funeral director/embalmer at [facility] established Multi-D MD: Chemotherapy teaching: done per chemo binder and ICF My Chart access: active and encouraged Patient reports that neoadjuvant chemo was completed at [facility] in [place], [place]. Radiation completed at [facility]. He reports the following medical and surgical history at baseline: Past Medical History: Diagnosis Date Cervical spinal stenosis 1997 Coronary artery disease 2007 diagnosed on angiogram when experienced chest pain - treated with medications, pain attr ibuted to esophageal spasm, never had FL or stent H/O Diverticulosis 1997 Hernia, hiatal, [...] no response, score 3) - 07/31/2018 [facility] Medical oncology evaluation- offered enrollment on [...] RDW 44.9 09/17/2018 Marie Liz MD Clinical software administrator Medical Oncology and Hematology documented in this encou nter Plan of Treatment Not on filedocumented as of this encounter Visit Diagnoses + + | Diagnosis | + + | 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
--- OUTSIDE RECORDS SUMMARY | ~2019-11-23 | XMS | Encounter Summary ---
Demographics + + + | Address | [address] | | | [place] [address] | + + + | Home Phone [...] Team Providers + +------+ + | Care Research Geneticist Name | Role | Phone | + [...] | 11/27/ | Clinical | Laboratory at [facility] | | Lab Draw (from PIV) | | 2019 | Support | [address] | | | | | Staff | [place], [place] | | | | | | [address] | | | | | | [phone] | | | +--------+ + + + [...] Evelyn Sahu RN - 11/27/2018 11:00 AM [id number] PIV in right AC in place from [...] [facility] | [address] | [place] [address] | | | [place]IN [place] | [address]LEY [...] [facility] | [address] | [place] [address] | | | SERVICES, CORE | PARK [...] [facility] | [address] | [place] [address] | | | SERVICES, CORE | ASHLEY [...] + | [facility] - AIRPORT - | [address] | [place] [address] | | | [place] | | | | + + + [...] [facility] | [address] | [place] [address] | | | SERVICES, [facility] [place] | | | | | HEALTH [...] SERVICES, | | | | | | [facility] [place] [facility] | | | | | | HEALTH + | | | | | | HEALING | | + +---------+ + + + | BUN, PLASMA | 7 | 6 - 20 mg/dL | [facility] | | | (LAB) | | | LABORATORY | | | | | | SERVICES, | | | | | | [facility] | | | | | | [...] LABORATORY | [address] | [place] [address] | | | [facility] | | | | | HEALTH [...] | + + + + + | [employer] | [address] | [place] [address] | | | SERVICES, CORE | [address] | | | + + + + + documented in this encounter Visit Diagnoses + + | Diagnosis | + + | 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
--- OUTSIDE RECORDS SUMMARY | ~2019-11-23 | XMS | Encounter Summary ---
Demographics + + + | Address | [address] | | | [place] [address] | + + + | Home Phone [...] Team Providers + +------+ + | Care Insecticide Mixer Name | Role | Phone | + [...] | | | | lower third | [address] | Mailcode: | | | | | of esophagus | [address] | Center for | | | | | Procedures | [place], [place] | Health and | | | | | [place] | [address] | Healing, | | | | | SERVICES | Phone: | Building 2 | | | | | PROVIDED | [phone] | [place], [place] | | | | | PART OF [place] | Fax: | [address] | | | | | INJ | [phone] | Phone: | | | | | [address] | | [phone] | | | | | [place] EST | | Fax: | | | | | PATIENT | | [phone] | | | | | LEVEL V | | | | | | | Study IRB: | | | | | | | [id number] Study | | | | | | [...] Description | +--------+---------+ + + + | 10/15/ | Office | Hematology/Medical | YgYun | Malignant neoplasm | | 2018 | Visit | Oncology at [place] | POOJA Leger [address] | of lower third of | | | | [employer] & Healing | [address] | esophagus (HCC) | | | | [address] | [place], [place] | (Primary Dx); | | | | Mailcode: [place] | [address] | Clinical trial exam | | | | [employer] and | [phone] | | | | | [place] [address] | | | | | | [place], [place] | | | | | | [address] | | | | | | [phone] | | | +--------+---------+ + + + [...] encounter Progress Notes Yun Ronquillo PA-C - 10/15/2018 9:30 AM PSTFormatting of this note might be [...] or no response, score 3) - 07/31/2018 [facility] Medical oncology evaluation- offered enrollment on Checkmate [...] 10/01/18 Cycle 3 - 10/15/18 Cycle 4 Plan/ Recommendations: 1. Cancer Staging Malignant neoplasm of lower third of esophagus (HCC) Staging form: Esophagus - Adenocarcinoma, AJCC 8th Edition - Clinical: No stage assigned - Unsigned - Pathologic: Stage IIIB (pT3, pN2, cM0) - Signed by Marie Liz MD on 07/31/2018 - Continue investigational therapy Nivolumab/placebo - no toxicity - stable fatigue. - had recent flareup of diverticulitis, treated with 10d course of ciprofloxacin and metron idazole (10/09-10/19), pt stopped cipro after 4 days due to nausea. - Proceed with Cycle 4 Nivolumab/placebo today, monitor closely for toxicities - faxed RX for [place]fran to [place] 10/15/18 1?45pm 2. Neck pain - chronic - on vicodin prn with PCP - continue management with his primary care provider given that this is not related to his prior malignancy. 3. High Cholesterol - recommend that he has lipid panel checked at home - may not need meds due to excessive weight loss following his cancer and surgery 4. Mild hypokalemia: 3.1 - 40meq kdur in OTU today, may require supplement, no sig emesis or diarrhea. 5. Diverticulitis: - pt reports extended history of flares, was recently diagnosed by PCP, given 10 day course of cipro/metronidazole, pt self discontinued cipro after 4 days due to side effects - no diarrhea, LLQ pain improving, similar pain pattern to past flares, continue to monitor for colitis symptoms Interval History: Jacob Sapp returns to clinic today for follow up. Since the last clinic visit, he was diagnosed with a diverticulitis flare. He reports havi ng several flares in past few years, was prescribed 500mg ciprofloxacin BID and 500mg metron idazole TID x 10 days with start of therapy on 10/09/18. He self-discontinued the cipro aft er 4 days due to increased nausea which resolved. His LLQ pain has improved. He reports st able nausea, he is using zofran and pepcid but not scheduled with meals, this has been ongoi ng s/p esophagectomy. Slight increase in fatigue with diverticulitis flare. No diarrhea. No abnormal bleeding. No headaches, vision changes, CP, SOB, lower extremity edema, rash, n ew cough. Current Outpatient Prescriptions Medication Sig atorvastatin [...] Labs: Lab Results Component Value Date NA 139 10/15/2018 K 3.1 10/15/2018 CL 103 10/15/2018 BICARB 28 10/15/2018 BUN 9 10/15/2018 CR 1.00 10/15/2018 GLU 132 10/15/2018 CA 9.3 10/15/2018 AST 36 10/15/2018 ALT 30 10/15/2018 AP 70 10/15/2018 TBILI 0.6 10/15/2018 TP 6.3 10/15/2018 ALB 3.1 10/15/2018 Lab Results Component Value Date WBC 3.87 10/15/2018 HB 10.4 10/15/2018 HCT 30.1 10/15/2018 PLT 176 10/15/2018 MCV 97.1 10/15/2018 RDW 43.3 10/15/2018 Yun Ronquillo M.S., POOJA Physician Inspector Finishing Medical Oncology Pager [phone] documented in t his encounter Plan of [...]
--- OUTSIDE RECORDS SUMMARY | ~2019-11-23 | XMS | Encounter Summary ---
Demographics + + + | Address | [address] | | | [place] [address] | + + + | Home Phone | | + + + | Preferred Language | Unknown | + + + | Marital Status | | + + + | Caodaism Affiliation | CAT | + + + [...] Providers + +------+ + | Care Hand Coremaker Name | Role | Phone | + [...] | | | neoplasm of | ,PhD [address] | | | | | | lower third | [address] | | | | | | of esophagus | [place], | | | | | | (HCC) | [place] | | | | | | Procedures | [address] | | | | | | US NEEDLE | Phone: | | | | | | BIOPSY | [phone] | | | | | | SUPERFICIAL | Fax: | | | | | | LYMPH NODE | [phone] | | | | | | W/ GUIDANCE | | | + +--------+ + + + + Reason for Visit + + + | Reason | Comments | + + + | Test Results | | + + + Encounter Details +--------+ + + + + | Date | Type | Department | Care Team | Description | +--------+ + + + + | 08/18/ | MyChart | Hematology/Medical | Krunal Godoy, | Biopsy | | 2019 | Encounter | Oncology at [place] | ,PhD [address] | | | | | for Health & Healing | [place], [place] | | | | | [address] | [address] | | | | | Mailcode: [place] | [phone] | | | | | [facility] Health and | | | | | | [facility] [place] [address] | | | | | | [place], [place] | | | | | | [address] | | | | | | [phone] | | | +--------+ + + + [...] | | + +------+--------+ + + | PSA TOTAL, | Lab | Routin | Malignant neoplasm | Expected: 08/19/2019 | | SCREENING, SERUM | | e | of lower third of | (Approximate), | | | | | esophagus (HCC) | Expires: 09/18/2020 | + +------+--------+ + + documented as of this encounter Results US NEEDLE BIOPSY SUPERFICIAL [...]
--- OUTSIDE RECORDS SUMMARY | ~2019-11-23 | XMS | Encounter Summary ---
Demographics + + + | Address | [address] | | | [place] [address] | + + + | Home Phone [...] Team Providers + +------+ + | Care Setup Operator Name | Role | Phone | [...] | [address] | [address] [facility] | | | | | lower third | [facility] | [facility] | | | | | of esophagus | [facility] | Rd | | | | | Esophagus | Road | [facility] [place] | | | | | Ca | [facility] [place] | [address] | | | | | Procedures | [address] | Phone: | | | | | Consult, | Phone: | [phone] | | | | | Sage Wilkins | [phone] | Fax: | | | | | | Fax: | [phone] | | | | | | [phone] | | +--------+--------+ + + + + Encounter Details +--------+ + + + + | Date | Type | Department | Care Team | Description | +--------+ + + + + | 01/21/ | Hospital | Radiation Oncology | | | | 2017 | Encounter | at [facility] [address] | | | | | | [place] | | | | | | [id number] [facility] | | | | | | [facility] [place], | | | | | | [place] [address] | | | | | | [phone] | | | +--------+ + + + [...]
--- OUTSIDE RECORDS SUMMARY | ~2019-11-23 | XMS | Encounter Summary ---
Demographics + + + | Address | [address] | | | [place] [address] | + + + | Home Phone [...] Team Providers + +------+ + | Care Paragliding Instructor Name | Role | Phone | + [...] | [address] | [address] [facility] | | | | | lower third | Veterans | [facility] | | | | | of esophagus | [facility] | Rd | | | | | Esophagus | Road | [facility] [place] | | | | | Ca | [facility] [place] | [address] | | | | | Procedures | [address] | Phone: | | | | | Consult, | Phone: | [phone] | | | | | Sage Wilkins | [phone] | Fax: | | | | | | Fax: | [phone] | | | | | | [phone] | | +--------+--------+ + + + + Encounter Details +--------+ + + + + | Date | Type | Department | Care Team | Description | +--------+ + + + + | 12/27/ | Hospital | Radiation Oncology | | | | 2017 | Encounter | at [facility] [address] | | | | | | [place] | | | | | | [id number] [facility] | | | | | | HOSPITAL [place], | | | | | | [place] [address] | | | | | | [phone] | | | +--------+ + + + [...]
--- OUTSIDE RECORDS SUMMARY | ~2019-11-23 | XMS | Clinical Summary ---
Demographics + + + | Address | [address] | | | [place] [address] | + + + | Home Phone | | + + + | Preferred Language | Unknown | + + + | Marital Status | | + + + | Bahai Affiliation | 1041 | + + + | Race | Unknown | + + + | Ethnic Group | Unknown | + + + Author + + + | Author | [facility] | | | and [place] | + + + | Organization | [facility] | | | [...] Team Providers + +------+ + | Care Publications Inspector Name | Role | Phone | [...] +---------+--------+ | [employer] [place] | [phone] | | | | Indemn | | | CHOICE | | 019-Pr | | | ity | | | PC3 | | esent | | | | + +--------+ +--------+ +---------+--------+ | MEDICARE | MEDICA | [id number] | 07/27/20 | [phone] | | Medica [...] | 1950 | [phone] | [place] [address] | | | marsha | | | 6 (Home) | | | | | | | [phone] | | | | | | | 9 (Work) | | + +--------+ +--------+ + +"
--- OUTSIDE RECORDS SUMMARY | ~2019-11-23 | XMS | Encounter Summary ---
Demographics + + + | Address | [address] | | | [place] [address] | + + + | Home Phone [...] Team Providers + +------+ + | Care Profiling Machine Setup Operator Name | Role | Phone | + +------+ + | Christos Olivarez MD | PCP | | + +------+ + Encounter Details +--------+--------+ + + + | Date | Type | Department | Care Team | Description | +--------+--------+ + + + | 06/17/ | Travel | | | | | [...]
--- OUTSIDE RECORDS SUMMARY | ~2019-11-23 | XMS | Encounter Summary ---
Demographics + + + | Address | [address] | | | [place] [address] | + + + | Home Phone [...] Team Providers + +------+ + | Care Jack Spooler Tender Name | Role | Phone | + [...] | Oncology at [facility] | [address] [place], | | | | | [address] | [place] [address] | | | | | Mailcode: [place] | | | | | | for Health and | | | | | | [facility], [facility] | | | | | | [place], [place] | | | | | | [address] | | | | | | [phone] | | | +--------+ + + + [...] Nurse Note Name: Jacob Sapp Physician: Dr. 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 Refer to MAR [...] | [facility] | [address] | [place] [address] | | | OF CARE TESTS | [...] (L) | 3.5 - 4.7 g/dL | [facility], | | | CMP POC | | | POINT OF | | | | | | CARE TESTS | | + +---------+ + + + | PROTEIN | 6.2 (L) | 6.4 - 8.2 g/dL | [facility] | | | TOTAL, [...] [facility] | [address] [facility] | [place] [address] | | | OF CARE TESTS | [...] [facility] | [address] | [place] [address] | | | SERVICES, CORE | PARK [...] | + + + + + | [facility] | [address] | [place] [address] | | | SERVICES, CORE | ASHLEY [...] + + + + + | [facility] | [address] | [place] [address] | | | SERVICES, CORE | PARK [...] | | 11/12/18 at 1430, Pt ID: [id number]. | | | | | | | Administer using a 0.2 micron | | | | | | | filter. Flush line with 15-20 mL | | | | | | | of normal saline. For | | | | | | | investigational use only, HIGH | | | | | | | ALERT MEDICATION IRB:[id number], | | | | | | | Protocol:[id number], Infuse using | | | | | | | 0.2 micron filter., | | | | | | + +---------+ +--------+-------+------+ +---+---+ | | | +---+---+ documented in this encounter"
--- OUTSIDE RECORDS SUMMARY | ~2019-11-23 | XMS | Encounter Summary ---
Demographics + + + | Address | [address] | | | [place] [address] | + + + | Home Phone [...] + +------+ + | Care Professor Of Languages Name | Role | Phone | + [...] [address] | [address] [facility] | | | | | lower third | Veterans | [facility] | | | | | of esophagus | [facility] | Rd | | | | | Esophagus | Road | [facility] [place] | | | | | Ca | [facility] [place] | [address] | | | | | Procedures | [address] | Phone: | | | | | Consult, | Phone: | [phone] | | | | | Sage Wilkins | [phone] | Fax: | | | | | | Fax: | [phone] | | | | | | [phone] | | +--------+--------+ + + + + Encounter Details +--------+ + + + + | Date | Type | Department | Care Team | Description | +--------+ + + + + | 01/17/ | Hospital | Radiation Oncology | | | | 2017 | Encounter | at [facility] [address] | | | | | | [place] | | | | | | [id number] [facility] | | | | | | HOSPITAL [place], | | | | | | [place] [address] | | | | | | [phone] | | | +--------+ + + + [...]
--- OUTSIDE RECORDS SUMMARY | ~2019-11-23 | XMS | Encounter Summary ---
Demographics + + + | Address | [address] | | | [place] [address] | + + + | Home Phone [...] | + + +---------+ + | Flower Spap | ECON | Unknown | | + + +---------+ + Care Team Providers + +------+ + | Care Gypsum Roofer Name | Role | Phone | + [...] Pharmacy | | | | | | [address] | | | | | | [address] [place], [place] | | | | | | [address] | | | | | | [phone] | | | +--------+ + + + [...]
--- OUTSIDE RECORDS SUMMARY | ~2019-11-23 | XMS | Encounter Summary ---
Demographics + + + | Address | [address] | | | [place] [address] | + + + | Home Phone [...] Team Providers + +------+ + | Care River Boat Captain Name | Role | Phone | + [...] [address] | [address] [facility] | | | | | lower third | Veterans | [facility] | | | | | of esophagus | [facility] | Rd | | | | | Esophagus | Road | [facility] [place] | | | | | Ca | [facility] [place] | [address] | | | | | Procedures | [address] | Phone: | | | | | Consult, | Phone: | [phone] | | | | | Sage Wilkins | [phone] | Fax: | | | | | | Fax: | [phone] | | | | | | [phone] | | +--------+--------+ + + + + Encounter Details +--------+ + + + + | Date | Type | Department | Care Team | Description | +--------+ + + + + | 01/18/ | Hospital | Radiation Oncology | | | | 2017 | Encounter | at [facility] [address] | | | | | | [place] | | | | | | [id number] [facility] | | | | | | HOSPITAL [place], | | | | | | [place] [address] | | | | | | [phone] | | | +--------+ + + + [...]
--- OUTSIDE RECORDS SUMMARY | ~2019-11-23 | XMS | Encounter Summary ---
Demographics + + + | Address | [address] | | | [place] [address] | + + + | Home Phone [...] Team Providers + +------+ + | Care Inbound Ingredient Logistics Specialist Name | Role | Phone | [...] Mike Murphy | | | | | ([facility], [facility]IN [facility]) [address] | [address] | [address] [place], | | | | | = | [address] | [place] | | | | | laparoscopic | [place], [place] | [address] | | | | | Jejunostomy | [address] | Phone: | | | | | tube | | [phone] | | | | | exchange | | Fax: | | | | | Procedures | | [phone] | | | | | REQUEST TO | | | | | | | SURGERY | | | | | | | SURFACE GRINDER | | | | | | | [place] ESPHG | | | | | | | THRSC MOBLJ | | | | | | | W[place] LAP | | | | | | | PYLOROMYTOMY | | | | | | | [place] ESOPH | | | | | | | LENGTHENING | | | | | | | [place] UNLISTED | | | | | | [...] | | of esophagus | Hospital | [facility] | | | | | | Road | Health and | | | | | | [place], [place] | Healing, | | | | | | [address] | [address] | | | | | | Phone: | [place], [place] | | | | | | [phone] | [address] | | | | | | Fax: | Phone: | | | | | | [phone] | [phone] | | | | | | | Fax: | | | | | | | [phone] | + +--------+ + + + + [...] | | [address] | [address] [place], (Primary Dx) | | | | Mailcode: [place] | [place] [address] | | | | | for Health and | [phone] | | | | | [facility] 2 | | | | | | [place], [place] | | | | | | [address] | | | | | | [phone] | | | +--------+---------+ + + + [...] Maddox RN - 04/30/2018 11:00 AM PDT [facility] General Surgery Office Toll-free: ext [phone] Surgery [...] by 7:00 PM please call the hospital electric tripper machine operator at [phone] and ask to speak to the [facility] [place] for your [id number]. PARKING Parking for patients and visitors is available in the [facility] Parking structure located across from the emergency department. Patient parking is available on level 1 and 3. Mete red parking is available on the top level. CHECKING IN FOR SURGERY For Hospital Admission (in-patient) you will check in on the day of surgery at the Admittin g Department located on the 9th floor of [facility] TRANSPORTATION You will require transportation home on the day of discharge. Pain medications and physic al activity restrictions may limit your ability to drive safely. CANCELLING YOUR PROCEDURE Please notify the general surgery office at [phone] as soon as possible should you nee [...] prior to your surgery. PRODUCTS CONTAINING ASPIRIN Rosalinda-[place], Anacin, Anexsia with Codeine, Andynos, Aspirin, Aspirin suppositories, Ascrip tin, Aspergum, Axotal, B-A-C, Baby Aspirin, Tonja, BC Powder, Bexophene, Buffaprin, Bufferin , Buffinol, Cama-Arthritis Strength, Congespirin, [place], Coricidin, Damason, Darvon, Dristan, Rosa-Gesic, Digel, Dolprin #3 Tablets, Donatab, Doxaphene, Duragesic, Easprin, Ecotrin, Emag rin Forte, Emiprin, Emprazil, Equagesic, Equazine M, Excedrin, Fiogesic, Fiorgen PH, Fiorice t, Fiorinal, 4-Way Cold Tablet Gemnisyn, Indocin, Liquprin, Lortab ASA, Magnaprin, Marnal, Meprobamate, Midol, Momentum, N orgesic, [place], Orphengesic, Pabalate, P-A-C, Percodan, Presalin, Robaxasil, Roxiprin, Nasir eto, Salocol SK-65 Compound, Sine-Aid, Sine-Off,, [place], Supac, Talwin Compound, Trigesic, Tolectin , Traiminicin, Vanquish, ZORprin, Zomax PRODUCTS CONTAINING IBUPROFEN Advil, Aleve, Haltran, Medipren, Midol, Motrin, Naproxyn, Nuprin, Rufen OTHER PRODUCTS WHICH MAY PROMOTE BLEEDING Vitamin E, Gingko Biloba, Marine Fatty Acids, [place]-3 Fish Oil Supplements documented in this encounter [...] Coker MD - 04/30/2018 11:00 AM PDT [facility] Department of Surgery Foregut Surgery Clinic Note Author: Charles Nichols R2 Attending Physician: Dr Juvenal Vicente 04/30/2018 Chief Complaint: evaluation of known esophageal adenocarcinoma History of Present Illness: Jacob Sapp is a 67 y.o. male patient with [id number] esophageal ad enocarcinoma (Siewert III). Was diagnosed [...] stent or interventions requir ed. Never had CA. Pulm: no SOB, no ankle edema GI: see HPI : no dysuria or difficulty urinating Ext: nil A complete review of systems is as per the HPI above, but is otherwise negative. Past Medical History: Diagnosis Date Cervical spinal stenosis Coronary artery disease 2007 diagnosed on angiogram when experienced chest pain - treated with medications, pain attrib uted to esophageal spasm, never had CA or stent Diverticulosis GERD without esophagitis Hernia, [...] Sapp is a 67 y.o. male patientwith [id number] esophageal adenocarcinoma (Siewert III). W as diagnosed [...] MIRACLE FERRARI MD Minimally Invasive Surgery Fellow Counts Include 234 Beds At [facility] Pager [phone] documented in this en counter Plan of Treatment Not on filedocumented as of this encounter Visit Diagnoses + + | Diagnosis | + + | Esophageal cancer, stage IIIA (HCC) - Primary | + + documented in this encounter
--- OUTSIDE RECORDS SUMMARY | ~2019-11-23 | XMS | Encounter Summary ---
Demographics + + + | Address | [address] | | | [place] [address] | + + + | Home Phone [...] Providers + +------+ + | Care Business Support Administrator Name | Role | Phone | + [...] | | | | | Procedures | [place], [place] | Health and | | | | | [place] | [address] | Healing, | | | | | SERVICES | Phone: | Building 2 | | | | | PROVIDED | [phone] | [place], [place] | | | | | PART OF [place] | Fax: | [address] | | | | | INJ | [phone] | Phone: | | | | | [address] | | [phone] | | | | | MG [place] EST | | Fax: | | | | | PATIENT | | [phone] | | | | | LEVEL V | | | | | | | Study IRB: | | | | | | | [id number] Study | | | | | | [...] Description | +--------+---------+ + + + | 07/15/ | Office | Hematology/Medical | Yun Ronquillo | Malignant neoplasm | | 2019 | Visit | [facility] at [place] | [address] | of lower third of | | | | for Health & Healing | [address] | esophagus (HCC) | | | | [address] | [facility], [place] | (Primary Dx); | | | | Mailcode: [place] | [address] | Fatigue, unspecified | | | | for Health and | [phone] | type; Clinical | | | | Healing, Building [address] | | trial exam; | | | | [place], [place] | | Encounter for | | | | [address] | | antineoplastic | | | | [phone] | | immunotherapy | +--------+---------+ + + + Social History [...] + + + | Blood Pressure | 107/76 | 07/15/2019 1:44 PM | | | | | PDT | | + + + + + | Pulse | 70 | 07/15/2019 1:44 PM | | | | | PDT | | + + + + + | Temperature | 36.8 C (98.2 F) | 07/15/2019 1:44 PM | | | | | PDT | | + + + + + | Respiratory Rate | 14 | 07/15/2019 1:44 PM | | | | | PDT | | + + + + + | Oxygen Saturation | 98% | 07/15/2019 1:44 PM | | | | | PDT | | + + + + + | Inhaled Oxygen | - | - | | | Concentration | | | | + + + + + | Weight | 68 kg (150 lb) | 07/15/2019 1:44 PM | | | [...] encounter Progress Notes Yun Ronquillo PA-C - 07/15/2019 1:50 PM PDTFormatting of this note might be differe nt from the original. ID: Jacob Sapp is a 68 year [...] no response, score 3) - 07/31/2018 [facility] Medical oncology evaluation- offered enrollment [...] Resolved with dose hold. Interval History: Ongoing Nivo/placebo study treatment. Patient continues to tolerate treat ment well. He reports developing another flare of diverticulitis on 07/03/19, completed 5 day s of cipro and metronidazole. Stable intermittent nausea. No fevers, chills, CP, SOB. No other concerns today. Review of Systems: Review of systems were obtained and reviewed with the patient today. Ple ase reference the scanned questionnaire, see HPI for pertinent positives. PFSH: I reviewed and updated. Good social support system. Physical Examination: BP 107/76 (BP Location: Left upper arm, Patient Position: Sitting) | Pulse 70 | Temp 36.8 C (98.2 F) (Oral) | Resp 14 | Ht 1.727 m (5' 8") | Wt 68 kg (150 lb) | SpO2 98% | BMI 22.81 kg/m | BSA 1.81 m ECO Gen: Well-developed, well-nourished, ambulatory, in no distress. Skin: No significant rash, ecchymoses or jaundice. HEENT: Oropharynx is clear with no exudates or erythema. No oral mucositis or thrush. No scleral icterus. Nodes: No pathologically enlarged [...] Lab Results Component Value Date NA 139 07/15/2019 K 4.4 07/15/2019 CL 104 07/15/2019 BICARB 28 07/15/2019 BUN 8 07/15/2019 CR 0.96 07/15/2019 GLU 98 07/15/2019 CA 9.0 07/15/2019 AST 34 07/15/2019 ALT 37 07/15/2019 AP 88 07/15/2019 TBILI 0.4 07/15/2019 TP 7.2 07/15/2019 ALB 3.4 07/15/2019 Lab Results Component Value Date WBC 4.64 07/15/2019 HB 11.7 07/15/2019 HCT 33.4 07/15/2019 PLT 168 07/15/2019 MCV 99.7 07/15/2019 RDW 48.3 07/15/2019 CT CHEST, ABDOMEN AND PELVIS W IV CONTRAST Order: [id number] Performed: 05/20/2019 09:49 Status: Final result Visible [...] with diminished appetite and cold intolerance - recently completed 5 days of cipro and metronidazole for diverticulitis flare. Symptoms resolved. - I discussed the goals, objectives, risks, benefits, and toxicities of therapy and the pat ient wishes to proceed. - Will need close and frequent monitoring physical examinations and laboratory monitoring f or toxicities of ongoing immunotherapy 2. Low appetite, low grade nausea, intermittent, improved with olanzapine, sxs also c/w unc ontrolled gastritis despite 20mg omeprazole daily - continue 40mg omeprazole daily - Continue Zyprexa - continue following with dietitian 3. Hypothyroidism -TSH WNL - Continue synthroid as prescribed 4. Mood: Ongoing, stable - pt previously reported increase in depressed mood, no SI/HI - not discussed today (07/15/2019) 5. Question of nodule in right lower quadrant abdominal oblique muscle. Discussed with radi ology and described prior complicated appendectomy with wound dehiscence and peritonitis. In this context, this seems to be non-metastatic. However will follow and if continues to enla rge, will obtain PET and potential biopsy. Yun Ronquillo M.S., PA-C Physician Auto Specialty Services Manager Medical Oncology Pager [phone] Research Note Study #: [id number] Patient Name: Jacob Sapp Patient Medical/Surgical History Date Cervical spinal stenosis 1997 Coronary artery disease - diagnosed on angiogram when experienced chest pain - treated with medications, pain attributed to esophageal spasm, never had CO or stent 2007 H/O Diverticulosis 1997 Hernia, [...] 2015 1 mg PO PRN Anxiety/sleep Lovastatin 2012 [...] none 2 = no N Last updated: 07/15/2019 documented in t his encounter Plan of Treatment Not on filedocumented as of this encounter Procedures + +--------+ + + + | Procedure Name | Priori | Date/Time | Associated Diagnosis | Comments | | | ty | | | | + +--------+ + + + | ADMINISTER | Routin | 07/15/2019 | | | | CHEMOTHERAPY PER | e | 2:10 PM | | | | TREATMENT PARAMETERS | | PDT | | | + +--------+ + + + documented in this encounter Visit Diagnoses + + | Diagnosis | + + | Malignant neoplasm of lower third of esophagus (HCC) - Primary Malignant neoplasm of | | lower third of esophagus | + + | Fatigue, unspecified type | + + | Clinical trial exam Examination of participant in clinical trial | + + | Encounter for antineoplastic immunotherapy | + + documented in this encounter
--- OUTSIDE RECORDS SUMMARY | ~2019-11-23 | XMS | Encounter Summary ---
Demographics + + + | Address | [address] | | | [place] [address] | + + + | Home Phone [...] Team Providers + +------+ + | Care Proj Engineer Name | Role | Phone | + +------+ + | Christos Olivarez MD | PCP | | + +------+ + Encounter Details +--------+ + + + + | Date | Type | Department | Care Team | Description | +--------+ + + + + | 05/20/ | Telephone | Cancer Genetics at | Daniel Barrera, | | | 2018 | IP | [facility] | [address] | | | | | [address] | [address] | | | | | [place] for [facility] | [place], [place] | | | | | and Healing, | [address] | | | | | [address] | [phone] | | | | | [place], [place] | | | | | | [address] | | | | | | [phone] | | | +--------+ + + + [...]
--- OUTSIDE RECORDS SUMMARY | ~2019-11-23 | XMS | Encounter Summary ---
Demographics + + + | Address | [address] | | | [place] [address] | + + + | Home Phone [...] Team Providers + +------+ + | Care Meat Butcher Name | Role | Phone | + +------+ + | Luis Leiva DO | PCP | | + +------+ + Reason for Visit + + + | Reason | Comments | + + + | Research Study | | + + + Encounter Details +--------+ + + + + | Date | Type | Department | Care Team | Description | +--------+ + + + + | 05/08/ | Telephone | Digestive Health | Juvenal Vicente MD | Research Study | | 2018 | | Center at [facility] [address] | [address] | | | | | [address] | [facility], | | | | | Mailcode: [place] | [place] [address] | | | | | for [facility] and | [phone] | | | | | [place] [address] | | | | | | [place], [place] | | | | | | [address] | | | | | | [phone] | | | +--------+ + + + [...]
--- OUTSIDE RECORDS SUMMARY | ~2019-11-23 | XMS | Encounter Summary ---
Demographics + + + | Address | [address] | | | [place] [address] | + + + | Home Phone | | + + + | Preferred Language | Unknown | + + + | Marital Status | | + + + | Restorationism Affiliation | CAT | + + + [...] Team Providers + +------+ + | Care Switchboard Operator Helper Name | Role | Phone [...] | | | | | Procedures | [place], [place] | Health and | | | | | [place] | [address] | Healing, | | | | | SERVICES | Phone: | [address] | | | | | PROVIDED | [phone] | [place], [place] | | | | | PART OF [place] | Fax: | [phone] | | | | | INJ | [phone] | Phone: | | | | | [address] | | [phone] | | | | | [place] EST | | Fax: | | | | | PATIENT | | [phone] | | | | | LEVEL V | | | | | | | Study IRB: | | | | | | | [id number] Study | | | | | | [...] Description | +--------+---------+ + + + | 10/01/ | Office | Hematology/Medical | Marie Liz, | Malignant neoplasm | | 2018 | Visit | [facility] [place] | [address] | of lower third of | | | | for Health & Healing | [address] | esophagus (HCC) | | | | [address] | [place] [address] | (Primary Dx) | | | | Mailcode: [facility] | [phone] | | | | | for Health and | | | | | | Healing, [address] | | | | | | [place], [place] | | | | | | [address] | | | | | | [phone] | | | +--------+---------+ + + + [...] + + + | Blood Pressure | 116/81 | 10/01/2018 1:14 PM | | | | | PST | | + + + + + | Pulse | 75 | 10/01/2018 1:14 PM | | | | | PST | | + + + + + | Temperature | 36.8 C (98.3 F) | 10/01/2018 1:14 PM | | | | | PST | | + + + + + | Respiratory Rate | 16 | 10/01/2018 1:14 PM | | | | | PST | | + + + + + | Oxygen Saturation | 99% | 10/01/2018 1:14 PM | | | | | PST | | + + + + + | Inhaled Oxygen | - | - | | | Concentration | | | | + + + + + | Weight | 68.2 kg (150 lb 4.8 | 10/01/2018 1:14 PM | | | | oz) | PST | | + + + + + | Height | - | - | | + + + + + | Body Mass Index | 22.85 | 09/03/2018 11:47 AM | | | [...] encounter Progress Notes Kerrie Luna, RN - 10/01/2018 1:10 PM PST Research RN Note: Mr. Jacob Sapp presents today for C3D1 nivolumab vs placebo after signing consent to particip ate in [id number]: A Randomized, Multicenter, Double Blind, Phase III [...] 70.2 kg IV access: PIV RD/SW referral: mines inspector at [facility] established Multi-D MD: Chemotherapy teaching: done per chemo binder and [facility] My Chart access: active and encouraged Patient reports that neoadjuvant chemo was completed at [facility] in [place], [place]. Radiation completed at [facility]. He reports the following medical and surgical history at baseline: Past Medical History: Diagnosis Date Cervical spinal stenosis 1997 Coronary artery disease 2007 diagnosed on angiogram when experienced chest pain - treated with medications, pain attr ibuted to esophageal spasm, never had [place] or stent H/O Diverticulosis 1997 Hernia, hiatal, [...] date End date Gas pains 1 09/26/18 New On Study Medications Medication dose route frequency indication Start date Stop date Marie Desai Md - 04/2018 1:10 PM PST Oncology Assessment: Cancer Staging Malignant [...] or no response, score 3) - 07/31/2018 [facility] Medical oncology evaluation- offered enrollment on [...] 09/17/18 Cycle 2 - 10/01/18 Cycle 3 Plan/ Recommendations: 1. Cancer Staging Malignant neoplasm of lower third of esophagus (HCC) Staging form: Esophagus - Adenocarcinoma, AJCC 8th Edition - Clinical: No stage assigned - Unsigned - Pathologic: Stage IIIB (pT3, pN2, cM0) - Signed by Marie Liz MD on 07/31/2018 - Continue investigational therapy Nivolumab/placebo - no toxicity - some mild fatigue and gas, improved with Gas-X, no other signs of colitis. 2. Neck pain - chronic - on [...] visit Since the last clinic visit, he has noted some new mild symptoms. Reports some mild increa se in fatigue although he is not sure if this is related to treatment or just normal daily v ariance, he has had some increase in gas in his upper abdomen, this is improved with Gas-X, much of this was present after his esophagectomy, he denies any diarrhea, shortness of breat h, new cough, rash or chest discomfort. He has no lower extremity edema, no mouth sores and no other new complaints. Current Outpatient Prescriptions Medication Sig atorvastatin calcium [...] reviewed, see scanned document Physical Examination: BP 116/81 | Pulse 75 | Temp (Src) 36.8 C (98.3 F) (Oral) | RR 16 | Wt 68.2 kg (150 lb 4 .8 oz) | SpO2 99% | BMI 22.85 kg/(m^2) ECOG PS: 1 Gen: Well-developed, well-nourished, [...] Lab Results Component Value Date NA 141 10/01/2018 K 4.1 10/01/2018 CL 105 10/01/2018 BICARB 27 10/01/2018 BUN 11 10/01/2018 CR 0.90 10/01/2018 GLU 110 10/01/2018 CA 9.2 10/01/2018 AST 49 10/01/2018 ALT 49 10/01/2018 AP 84 10/01/2018 TBILI 1.0 10/01/2018 TP 6.7 10/01/2018 ALB 3.5 10/01/2018 Lab Results Component Value Date WBC 3.55 10/01/2018 HB 11.7 10/01/2018 HCT 33.3 10/01/2018 PLT 168 10/01/2018 MCV 96.8 10/01/2018 RDW 42.0 10/01/2018 Marie Liz MD Clinical salesperson floor coverings Medical Oncology and Hematology documented in this encou nter Plan of Treatment Not on filedocumented as of this encounter Visit Diagnoses + + | Diagnosis | + + | 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
--- OUTSIDE RECORDS SUMMARY | ~2019-11-23 | XMS | Encounter Summary ---
Demographics + + + | Address | [address] | | | [place] [address] | + + + | Home Phone [...] Team Providers + +------+ + | Care Explosive Operator Supervisor Name | Role | Phone | [...] [place] | | | | | | [id number] [facility] | | | | | | [facility] | | | | | | [place] [address] | | | | | | [phone] | | | +--------+ + + + [...]
--- OUTSIDE RECORDS SUMMARY | ~2019-11-23 | XMS | Encounter Summary ---
Demographics + + + | Address | [address] | | | [place] [address] | + + + | Home Phone | | + + + | Preferred Language | Unknown | + + + | Marital Status | | + + + | Lutheran Affiliation | CAT | + + + [...] Team Providers + +------+ + | Care Citizen Participation Specialist Name | Role | Phone | [...] | | | | lower third | [address] | Mailcode: | | | | | of esophagus | [address] | Center for | | | | | Procedures | [place], [place] | Health and | | | | | [place] | [address] | Healing, | | | | | SERVICES | Phone: | [address] | | | | | PROVIDED | [phone] | [place], [place] | | | | | PART OF [place] | Fax: | [address] | | | | | INJ | [phone] | Phone: | | | | | [address] | | [phone] | | | | | [place] EST | | Fax: | | | | | PATIENT | | [phone] | | | | | LEVEL V | | | | | | | Study IRB: | | | | | | | [id number] Study | | | | | | [...] | 2019 | Visit | [facility]cology at [place] | ,PhD [address] | of lower third of | | | | for Health & Healing | [address] [place], [place] | esophagus (HCC) | | | | [address] | [address] | (Primary Dx); | | | | Mailcode: [place] | [phone] | Clinical trial exam; | | | | for [facility] and | | Encounter for | | | | Healing, [address] | | antineoplastic | | | | [place], [place] | | immunotherapy | | | | [address] | | | | | | [phone] | | | +--------+---------+ + + + [...] no response, score 3) - 07/31/2018 [facility] Medical oncology evaluation- offered enrollment on [...] Ana Abdul. Research Note Study #: [id number] Patient Name: Jacob Sapp Patient Medical/Surgical History Date Cervical spinal stenosis 1997 Coronary artery disease - diagnosed on angiogram when experienced chest pain - treated with medications, pain attributed to esophageal spasm, never had [place] or stent 2007 H/O Diverticulosis 1997 Hernia, [...]
--- OUTSIDE RECORDS SUMMARY | ~2019-11-23 | XMS | Encounter Summary ---
Demographics + + + | Address | [address] | | | [place] [address] | + + + | Home Phone [...] Team Providers + +------+ + | Care Tile Inspector Name | Role | Phone | [...] | [address] | [address] [facility] | | | | | lower third | Veterans | [facility] | | | | | of esophagus | [facility] | Rd | | | | | Esophagus | Road | [place], [place] | | | | | Ca | [facility] [place] | [address] | | | | | Procedures | [address] | Phone: | | | | | Consult, | Phone: | [phone] | | | | | Sage Wilkins | [phone] | Fax: | | | | | | Fax: | [phone] | | | | | | [phone] | | +--------+--------+ + + + + Encounter Details +--------+ + + + + | Date | Type | Department | Care Team | Description | +--------+ + + + + | 12/31/ | Hospital | Radiation Oncology | | | | 2018 | Encounter | at [facility] [address] | | | | | | [place] | | | | | | [id number] | | | | | | HOSPITAL [place], | | | | | | [place] [address] | | | | | | [phone] | | | +--------+ + + + [...]
--- OUTSIDE RECORDS SUMMARY | ~2019-11-23 | XMS | Encounter Summary ---
Demographics + + + | Address | [address] | | | [place] [address] | + + + | Home Phone | | + + + | Preferred Language | Unknown | + + + | Marital Status | | + + + | Anabaptist Affiliation | CAT | + + + | Race | White | + + + | Ethnic Group | Not or | + + + Author + + + | Author | [facility] | + + + | Organization | [facility] | + + + | Address [...] Team Providers + +------+ + | Care Automatic Cigar Wrapper Tender Name | Role | Phone | + +------+ + | Christos Olivarez MD | PCP | | + +------+ + Encounter Details +--------+ + + + + | Date | Type | Department | Care Team | Description | +--------+ + + + + | 07/11/ | Rehab Spec | Hematology | Berna Rodriguez | Malignant neoplasm | | 2019 | | Oncology Study [address] | [address] | of lower third of | | | | [address] | [facility], | esophagus (HCC) | | | | Mailcode: CH7M | [place] [address] | (Primary Dx) | | | | [facility] | | | | | | and [place], | | | | | | [facility] | | | | | | [place], [place] | | | | | | [address] | | | | | | [phone] | | | +--------+ + + + [...] as of this encounter Results LIPASE, PLASMA (07/15/2019 12:23 PM PDT) + +--------+ + + + | Component | Value | Ref Range | Performed | Pathologist | | | | | At | Signature | + +--------+ + + + | LIPASE | 95 (L) | 152 - 353 U/L | [...] | + + + + + | [facility] | [address] | [place] [address] | | | SERVICES, CORE | [address] | | | + + + + + AMYLASE, PLASMA (07/15/2019 12:23 PM PDT) + +-------+ + + + | Component | Value | Ref Range | Performed | Pathologist | | | | | At | Signature | + +-------+ + + + | AMYLASE,KATHY | 35 | 25 - 115 U/L | [facility] [...] [facility] | [address] | [place] [address] | | | SERVICES, CORE | [address] | | | + + + + + LDH TOTAL, PLASMA (07/15/2019 12:23 PM PDT) + +---------+ + + + | Component | Value | Ref Range | Performed | Pathologist | | | | | At | Signature | + +---------+ + + + | LD TOTAL, | 171 | <=250 U/L | [facility] | | [...] | + + + + + | [facility] | [address] | [place] [address] | | | SERVICES, CORE | [address] | | | + + + + + documented in this encounter Visit Diagnoses + + | Diagnosis | + + | 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
--- OUTSIDE RECORDS SUMMARY | ~2019-11-23 | XMS | Encounter Summary ---
Demographics + + + | Address | [address] | | | [place] [address] | + + + | Home Phone [...] Team Providers + +------+ + | Care Monitoring Manager Name | Role | Phone | + +------+ + | Luis Leiva DO | PCP | | + +------+ + Reason for Visit + + + | Reason | Comments | + + + | Esophagitis | | + + + Encounter Details +--------+ + + + + | Date | Type | Department | Care Team | Description | +--------+ + + + + | 02/16/ | Telephone | Radiation Oncology | Daniel Barrera, | Esophagitis | | 2018 | | at [facility] [address] | [address] [facility] | | | | | [address] | [address] | | | | | [id number] [facility] | [place], [place] | | | | | [facility], | [address] | | | | | [place] [address] | [phone] | | | | | [phone] | | | +--------+ + + + [...]
--- OUTSIDE RECORDS SUMMARY | ~2019-11-23 | XMS | Encounter Summary ---
Demographics + + + | Address | [address] | | | [place] [address] | + + + | Home Phone [...] Team Providers + +------+ + | Care Biodiesel Plant Superintendent Name | Role | Phone [...] Description | +--------+---------+ + + + | 04/09/ | Office | Preoperative | Godfrey Tena NP | Preop examination | | 2018 | Visit | Medicine Clinic at | | (Primary Dx) | | | | [facility] 4th Floor [address] | | | | | [address] | | | | | | Mailcode: CH4S | | | | | | [facility] | | | | | | and Healing, | | | | | | Building 1,4th Floor | | | | | | [place], [place] | | | | | | [address] | | | | | | [phone] | | | +--------+---------+ + + + [...] 09 by | | on | 05/14/18; 922 | Gurinder Tipton RN | Rufino Cavanaugh RN | +--------+ + + + | Incisi | 04/10/18; 831; Left; Upper; | 04/10/18 0832 by | 05/14/18922 by [...] + + + | Blood Pressure | 98/59 | 04/09/2018 4:54 PM | | | | | PDT | | + + + + + | Pulse | 65 | 04/09/2018 4:00 PM | | | | | PDT | | + + + + + | Temperature | 36.6 C (97.9 F) | 04/09/2018 4:00 PM | | | | | PDT | | + + + + + | Respiratory Rate | 14 | 04/09/2018 4:00 PM | | | | | PDT | | + + + + + | Oxygen Saturation | 100% | 04/09/2018 4:00 PM | | | | | PDT | | + + + + + | Inhaled Oxygen | - | - | | | Concentration | | | | + + + + + | Weight | 74.8 kg (165 lb) | 04/09/2018 4:00 PM | | | | | PDT | | + + + + + | Height | 170.2 cm (5' 7") | 04/09/2018 4:00 PM | neck 40cm | | | | PDT | | + + + + + | Body Mass Index | 25.84 | 04/09/2018 4:00 PM | | | | | PDT | | + + + + + documented in this encounter Patient Instructions Patient Instructions Godfrey Tena NP - 04/09/2018 4:15 PM PDT PREOPERATIVE INSTRUCTIONS Empty stomach before [...] following medications with a sip of water: Omeprazole Cymbalta Propranolol Unless otherwise directed by your surgeon, do not take any Aspirin, fish oil supplements , vitamin E or non-steroidal anti-inflammatory (NSAIDs i.e. Advil, Aleve, Ibuprofen) or herb al supplements 7-14 days prior to your surgery. These drugs [...] before and the morning of your procedure. Surgery check-in location: Admitting - [facility], ninth floor lobby Surgery Check in Time: The Preoperative Medicine [...] regional block pump), deep sedation, and/or general anesthesia If you have questions or concerns after you go home, call your doctor s office. If it is after office hours, call the [facility] welding machine operator arc at [phone] and ask them to page him or h er. documented in this encounter Progress Notes Godfrey Tena NP - 04/09/2018 4:15 PM PDTFormatting of this note might be different from t he original. PREOPERATIVE CONSULT NOTE Author: GODFREY TENA NP Referring Physician: Dr. Eleonora Ybarra Primary Care Provider: Luis Leiva DO Reason for Consult: Preoperative evaluation and risk assessment Proposed Procedure/Date: DIAGNOSTIC LAPAROSCOPPY WITH WASHINGS, ESOPHAGOGASTRODUODENOSCOPY WITH POSSIBLE BIOPSY on 04/10/18 HISTORY OF PRESENT ILLNESS: Jacob Sapp is a 67 y.o. male here for preoperative evaluation o f medical problems in anticipation of the above procedure. 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 He underwent JT placement in November,. JT placed in November and has been receiving TF. JT fell out on Mother's Day. Receiving neuroadjuvant chemoradiation. He has had a partial response. Plan for restaging lap to assess degree of s tomach involvement and eval for suitability of esophagectomy. Symptoms related to the diagno sis:none. Pertinent medical problems discussed during this visit: CAD: non obstructive per cardiac cath (2007). Has been medically managed prior to dx. Cu rrently off statin, ASA. Takes Propranolol for tremors. Denies CP, BEEBE. > 4 mets (golfs, hun ts prior to dx - since dx mows lawn with power mower). LBBB: on EKG. Pt reports this was new as of 11/11 at time of dx. Asymptomatic. Hyperlipidemia: statin held Former nicotine user: stopped chewing tobacco 5 months ago. JOURDAN: hasnt been using his CPAP since 70 lb weight loss. Depression: recently started Cymbalta. Notices improvement. Perioperative cardiac risks: CAD yes CHF no CVA no CKD with creatinine >2 no DM treated with insulin no Functional Capacity: Moderate (4-10 mets) Prior complications of anesthesia: none ROS: Pulmonary: no shortness of breath no cough no stridor no wheezing no Recent Respiratory Infectio n Pt. Has no asthma no COPD Dx of sleep apnea Untreated Cardiovascular: Denies CP, palpitations, presyncope, syncope. Activity: mows [id number] yd lawn with a push mower. Prior to Dx, hunts, hikes, golfs. LBBB on EKG - pt reports this was discovered on EKG at Dx. No subsequent heart testing. CAD (non obstructive per cardiac cath - 2007) has been on optimum medical therapy. ASA and statin stopped. On Propranolol for tremors. Functional Capacity: Moderate - cyanosis, palpitations and syncope no chest pain no CHF no hypertension CAD Sx medic ally managed no valvular problems/murmurs no arrhythmia no Cardiac assist devices no pa cemaker/ICD GI/Hepatic: JT in place GI Bleed (11/11 - resolved.) GERD Control: well controlled no liver disease no hepatitis Renal: no renal failure no electrolyte abnormalities no dialysis Endo: no Diabetes: no Endocrine Other no Hx Corticosteroid Use Neuro/Psych: No Head Conditions No Spine Conditions No Neuromuscular Conditions no Psych Disorder pain Musculoskeletal: arthritis (cervical spine. ) Type: osteoarthritis No Muscular Disorders no skeletal disor ders Heme/Onc: Pt. has: no active bleeding no bleeding disorder No clotting disorders No hemoglobin d isorders malignancy Esophageal Infectious Disease: no MRSA no VRE Skin: no open wounds no skin conditions AutoImmune Disorders: No autoimmune disorders Current [...] 60 mg by presley th once daily. Allergies reviewed / updated Allergies Allergen Reactions Codeine Unknown Past medical history reviewed / updated Past Medical History: Diagnosis Date Cervical spinal stenosis Coronary artery disease 2007 diagnosed on angiogram when experienced chest pain - treated with medications, pain attrib uted to esophageal spasm, never had [place] or stent Diverticulosis GERD without esophagitis Hernia, hiatal Hyperlipidemia Malignant neoplasm (HCC) stomach cancer Sleep apnea no longer using CPAP since weight loss and not snoring any more Past surgery reviewed / updated Past Surgical History Procedure Laterality Date Cholecystectomy 1974 Vasectomy Appendectomy 1961 Incisional hernia repair at appy site repaired x 5 Laparoscopic placement of jejunostomy feeding tube 12/13/2017 Social history reviewed / updated Social History Substance Use Topics Smoking status: Former Smoker Quit date: 12/15/1989 Smokeless tobacco: Former User Types: Chew Quit date: 01/17/2018 Alcohol use 0.6 oz/week 1 Glasses of wine per week PHYSICAL EXAM: Last Vitals: BP 98/59 | Pulse 65 | Temp (Src) 36.6 C (97.9 F) (Oral) | RR 14 | Ht 1.702 m (5' 7") | Wt 74.8 kg (165 lb) | SpO2 100% | BMI 25.84 kg/(m^2) Body mass index is 25.84 k g/m. General: Appearance: Healthy, Age appropriate and No distress LOC: Alert HEENT: Normocephalic/Atraumatic and Normal sclerae/conjunctivae Airway: Dentition: dentition is normal Mallampati: 2 Mouth Opening: > 3 cm TM Distance:> 6 cm C-Spine ROM: Limited flexion & extension Neck Anatomy: Normal Jaw Protrusion: Normal (lower incisors go above upper incisors) Pulmonary: Respiratory: pulmonary exam normal Breath Sounds: breath sounds normal Cardiovascular: Rhythm: Regular Rate: Normal Cardiovascular comments: No M/G/R; no pedal edema Abdomen: General: Normal Body Habitus: normal Musculoskeletal: Range of Motion: Normal range of motion Musculoskeletal Comments: No obvious deformities n oted. Neuro/Psych: Affect: Normal Cognitive Status: Normal Speech: Normal speech Strength: Normal Movement: Normal Gait Station: Normal Comments: No obvious neurologic def icits noted Skin: Color: skin color normal Texture: Normal Turgor: turgor normal Temperature: Warm Other Implanted Devices: Implanted devices: None LABS & DATA REVIEWED/ORDERED Pending EKG: Results for orders placed or performed in visit on 04/09/18 12 LEAD ECG Result Value Ref Range VENTRICULAR RATE 59 bpm ATRIAL RATE 60 ms P-R INTERVAL 140 ms P AXIS 45 deg QRS DURATION 148 ms QT 472 ms QTCB 470 ms R AXIS -49 deg T AXIS 79 deg ECG IMPRESSION Sinus bradycardia ECG IMPRESSION Left bundle branch block- ABNORMAL ECG - ECG IMPRESSION Electronically signed by: PRELIMINARY - Unconfirmed 2007 CORONARY ANGIOGRAPHY The coronary system was right dominant. 1. The left main bifurcated into the left anterior descending (LAD)coronary artery and left circumflex. Left main artery was free of [...] large, dominant vessel and free of disease. LEFT VENTRICULOGRAM The left ventriculogram in right anterior oblique (MORROW) view showed normally joseph le ft ventricle with ejection fraction of 70%. CONCLUSION/RECOMMENDATIONS 1. Muer-xn-fqjuaruv 2-vessel coronary artery disease except for a terminal circumflex which was a very small vessel. 2. Normal left ventricular systolic function. 3. Recommend medical therapy. Perioperative risk calculators 2014 ACC/AHA Perioperative Cardiac Risk Stratification (assumes non-emergent, non-cardiac p rocedure) Are active cardiac conditions present? No Calculate the combined surgical and patient-specific risk: RCRI risk calculator (one point for each "yes" answer) A. Elevated risk surgery?: no B. Ischemic heart disease: yes C. Compensated / prior heart failure: no D. Diabetes mellitus (treated with insulin): no E. Renal insufficiency (Cr>2): no F. Cerebrovascular disease: no Risk of MACE 0 risk factors - 0.4% 1 risk factor - 0.9% 2 risk factors - 6.6% 3 risk factors - 11% The risk of major adverse cardiac event (MACE) is: less than 1%. No further risk stratific ation for coronary disease is indicated. Estimated ASA class 3 Other perioperative risk calculators: Not Applicable ASSESSMENT and RECOMMENDATIONS: Perioperative risk assessment: Jacob Sapp is a 67 y.o. male with diagnosis of , schedu led for DIAGNOSTIC LAPAROSCOPPY WITH WASHINGS, ESOPHAGOGASTRODUODENOSCOPY WITH POSSIBLE BIOP SY . Based on the clinical information obtained and reviewed during this visit, the overall assessment is that the patient is having elective surgery with risk factors. The patient ap pears stable for surgery. Medication management recommendations: The patient was advised to continue all usual med ications except as noted in Patient Instructions (After Visit Summary given to pt CAD: non obstructive per cardiac cath (2007). Has been medically managed prior to dx. Cu rrently off statin, ASA. Takes Propranolol for tremors. Denies CP, BEEBE. > 4 mets (golfs, hun ts prior to dx - since dx mows lawn with power mower). He denies any history of cardiac even ts or symptoms since 2007. Reviewed with Dr. Morin, anesthesia who will assess further in p re op. Discussed with pt the need for pre op cardiac risk assessment should he undergo an e sophagectomy in the future. LBBB: on EKG. Pt reports this was new as of 11/11 at time of dx. Asymptomatic. Hyperlipidemia: statin held JOURDAN: hasnt been using his CPAP since 70 lb weight loss. Former Nicotine user: stopped chewing tobacco 5 months ago. Depression: recently started Cymbalta. Notices improvement. Hypotension: Pt and his family report his BP has been 90s/50s. Asymptomatic. Thank you for the opportunity to contribute to this patient's care. GODFREY TENA NP [facility] PREOPERATIVE MEDICINE CLINIC AT [facility] 4TH FLOOR [address] [facility] [phone] documented in this encou nter Plan of Treatment + + +--------+ + + | Name | Type | Priori | Associated Diagnoses | Order Schedule | | | | ty | | | + + +--------+ + + | COMMUNICATION TO [facility] | Procedures | Routin | Preop examination | Ordered: 04/09/2018 | | LAB DRAW | | e | | | + + +--------+ + + documented as of this encounter Procedures + +--------+ + + + | Procedure Name | Priori | Date/Time | Associated Diagnosis | Comments | | | ty | | | | + +--------+ + + + | ANTIBODY SCREEN | Routin | 04/09/2018 | Preop examination | Results for this | | | e | 5:12 PM | | procedure are in the | | | | PDT | | results section. | + +--------+ + + + | TYPE AND SCREEN | Routin | 04/09/2018 | Preop examination | Results for this | | | e | 5:12 PM | | procedure are in the | | | | PDT | | results section. | + +--------+ + + + | ABO & RH TYPE | Routin | 04/09/2018 | Preop examination | Results for this | | | e | 5:12 PM | | procedure are in the | | | | PDT | | results section. | + +--------+ + + + | 12 LEAD ECG | Routin | 04/09/2018 | Preop examination | Results for this | | | e | 4:06 PM | | procedure are in the | | | | PDT | | results section. | + +--------+ + + + | CBC (HEMOGRAM) ONLY | Routin | 04/09/2018 | Preop examination | Results for this | | | e | 4:01 PM | | procedure are in the | | | | PDT | | results section. | + +--------+ + + + | COMPLETE METABOLIC | Routin | 04/09/2018 | Preop examination | Results for this | | SET | e | 4:01 PM | | procedure are in the | | (NA,K,CL,CO2,BUN,CRE | | PDT | | results section. | | AT,GLUC,CA,AST,ALT,B | | | | | | AISSATOU TOTAL,ALK | | | | | | PHOS,ALB,PROT TOTAL) | | | | | + +--------+ + + + | CBC ONLY | Routin | 04/09/2018 | Preop examination | Results for this | | | e | 4:01 PM | | procedure are in the | | | | PDT | | results section. | + +--------+ + + + documented in this encounter Results ANTIBODY SCREEN (04/09/2018 5:12 PM PDT) + + + + + [...] | + + + + + | [facility] | [address] | [place] [address] | | | SERVICES, | [address] | | | | TRANSFUSION MEDICINE | | | | + + + + + ABO & RH TYPE (04/09/2018 5:12 PM PDT) + + + + + [...] [facility] | [address] | [place] [address] | | | SERVICES, | [address] | | | | TRANSFUSION MEDICINE | | | | + + + + + 12 LEAD ECG (04/09/2018 4:06 PM PDT) + + + + + + | Component | Value | Ref Range | Performed | Pathologist | | | | | At | Signature | + + + + + + | VENTRICULAR | 59 | bpm | [facility] | | | RATE | | | OF | | | | | | CARDIOLOGY | | + + + + + + | ATRIAL RATE | 60 | ms | [facility] | | | | | | OF | | | | | | CARDIOLOGY | | + + + + + + | P-R | 140 | ms | [facility] | | | INTERVAL | | | OF | | | | | | CARDIOLOGY | | + + + + + + | P AXIS | 45 | deg | [facility] | | | | | | OF | | | | | | CARDIOLOGY | | + + + + + + | QRS | 148 | ms | [facility] | | | DURATION | | | OF | | | | | | CARDIOLOGY | | + + + + + + | QT | 472 | ms | [facility] | | | | | | OF | | | | | | CARDIOLOGY | | + + + + + + | QTC-LYDIA | 470 | ms | [facility] | | | | | | OF | | | | | | CARDIOLOGY | | + + + + + + | R AXIS | -49 | deg | [facility] | | | | | | OF | | | | | | CARDIOLOGY | | + + + + + + | T AXIS | 79 | deg | [facility] | | | | | | OF | | | | | | CARDIOLOGY | | + + + + + + | ECG | Sinus bradycardia | | [facility] | | | IMPRESSION | | | OF | | | | | | CARDIOLOGY | | + + + + + + | ECG | Left bundle branch | | [facility] | | | IMPRESSION | block- ABNORMAL ECG - | | OF | | | | | | CARDIOLOGY | | + + + + + + | ECG | Electronically signed | | [facility] | | | IMPRESSION | by: ELINA LANDAVERDE | | OF | | | | 04-09-2018 19:43:44 | | CARDIOLOGY | | + + [...] + + + + + | [facility] | [address] | [place], [place] | | | CARDIOLOGY | [address] | [address] | | + + + + + CBC (HEMOGRAM) ONLY (04/09/2018 4:01 PM PDT) + + + + + + | Component | Value | Ref Range | Performed | Pathologist | | | | | At | Signature | + + + + + + | WHITE CELL | 3.40 (L) | 3.50 - 10.80 | [facility] | | | COUNT | | K/cu mm | LABORATORY | | | | | | SERVICES, | | | | | | CORE | | + + + + + + | RED CELL | 3.14 (L) | 4.50 - 6.00 | [facility] | | | COUNT | | M/cu mm | LABORATORY | | | | | | SERVICES, | | | | | | CORE | | + + + + + + | HEMOGLOBIN | 10.6 (L) | 13.5 - 17.5 | [facility] | | | | | g/dL | LABORATORY | | | | | | SERVICES, | | | | | | CORE | | + + + + + + | HEMATOCRIT | 31.8 (L) | 41.0 - 53.0 % | [facility] | | | | | | LABORATORY | | | | | | SERVICES, | | | | | | CORE | | + + + + + + | MCV | 101.3 (H) | 80.0 - 100.0 fL | [facility] | | | | | | LABORATORY | | | | | | SERVICES, | | | | | | CORE | | + + + + + + | MCHC | 33.3 | 32.0 - 36.0 | [facility] | | | | | g/dL | LABORATORY | | | | | | SERVICES, | | | | | | CORE | | + + + + + + | RDW SD | 50.7 (H) | 35.1 - 46.3 fL | [facility] | | | | | | LABORATORY | | | | | | SERVICES, | | | | | | CORE | | + + + + + + | PLATELET | 190 | 150 - 400 K/cu | [facility] [...] | + + + + + | [facility] | [address] | [place] [address] | | | SERVICES, CORE | [address] | | | + + + + + COMPLETE METABOLIC SET (NA,K,CL,CO2,BUN,CREAT,GLUC,CA,AST,ALT,BILI TOTAL,ALK PHOS,ALB,PROT TOTAL) (04/09/2018 4:01 PM PDT) + +---------+ + + + | Component | Value | Ref Range | Performed | Pathologist | | | | | At | Signature | + +---------+ + + + | GLUCOSE, | 121 (H) | 70 - 99 mg/dL | [...] +---------+ + + + | CREATININE | 0.80 | 0.70 - 1.30 | [facility] | | | PLASMA | | mg/dL | LABORATORY | | | (LAB) | | | SERVICES, | | | | | | CORE | | + +---------+ + + + | EGFR | >60 | >60 mL/min | [facility] | | | - | | | LABORATORY | | | [place] | | | SERVICES, | | | [...] +---------+ + + + | CALCIUM, | 9.0 | 8.6 - 10.2 | [facility] | | | PLASMA | | mg/dL | LABORATORY | | | (LAB) | | | SERVICES, | | | | | | CORE | | + +---------+ + + + | CALCIUM(ALB | 9.6 [...] +---------+ + + + | TOTAL | 6.6 | 6.4 - 8.2 g/dL | [facility] | | | PROTEIN, | | | LABORATORY | | | PLASMA | | | SERVICES, | | | (LAB) | | | CORE | | + +---------+ + + + | ALBUMIN, | 3.2 (L) | 3.5 - 4.7 g/dL | [facility] | | | PLASMA | | | LABORATORY | | | (LAB) | | | SERVICES, | | | | | | CORE | | + +---------+ + + + | ALK PHOS | 88 | 56 - 119 U/L | [facility] | | | | | | LABORATORY | | | | | | SERVICES, | | | | | | CORE | | + +---------+ + + + | AST(SGOT) | 26 | <=41 U/L | [facility] | | | | | | LABORATORY | | | | | | SERVICES, | | | | | | CORE | | + +---------+ + + + | ALT (SGPT) | 19 | <=60 U/L | [facility] | | [...] + + + + | [facility] | [address] | [place] [address] | | | SERVICES, CORE | [address] | | | + + + + + documented in this encounter Visit Diagnoses + + | Diagnosis | + + | Preop examination - Primary Preoperative examination, unspecified | + + documented in this encounter
--- OUTSIDE RECORDS SUMMARY | ~2019-11-23 | XMS | Encounter Summary ---
Demographics + + + | Address | [address] | | | [place] [address] | + + + | Home Phone | | + + + | Preferred Language | Unknown | + + + | Marital Status | | + + + | Roman Catholic Affiliation | CAT | + + + | Race | White | + + + | Ethnic Group | Not or | + + + Author + + + | Author | [facility] | + + + | Organization | [facility] | + + + | Address [...] Team Providers + +------+ + | Care Radiology Specialist Name | Role | Phone | [...] [place] | | | | | | ([facility]) | [address] | | | | | | Procedures | Phone: | | | | | | CONSULT TO | [phone] | | | | | | NON - [facility] | Fax: | | | | | | PROVIDER | [phone] | | +--------+--------+ + + + + Encounter Details +--------+ + + + + | Date | Type | Department | Care Team | Description | +--------+ + + + + | 05/27/ | Telephone | Digestive Health | Eleonora Ybarra, | | | 2018 | | [place] [facility] [address] | [address] | | | | | [address] | [place] [facility] [place] | | | | | Mailcode: [place] | [address] | | | | | for Health and | [phone] | | | | | [address] | | | | | | [facility] [place] | | | | | | [address] | | | | | | [phone] | | | +--------+ + + + [...]
--- OUTSIDE RECORDS SUMMARY | ~2019-11-23 | XMS | Encounter Summary ---
Demographics + + + | Address | [address] | | | [place] [address] | + + + | Home Phone | | + + + | Preferred Language | Unknown | + + + | Marital Status | | + + + | Episcopalian Affiliation | CAT | + + + [...] Team Providers + +------+ + | Care Barrel Loader Name | Role | Phone | + [...] | 06/17/ | Clinical | Laboratory at [facility] | | Lab Draw | | 2019 | Support | [address] | | | | | Staff | [place], [place] | | | | | | [address] | | | | | | [phone] | | | +--------+ + + + [...] patient s right antec ubital space by PROOF PLATE MAKER, using an IV start kit. PIV with [...] | + + + + + | [facility] | [address] | [place] [address] | | | SERVICES, CORE | [address] [...] [facility] | [address] | [place] [address] | | | SERVICES, CORE | P[address] [...] | + + + + + | [facility] | [address] | [place] [address] | | | SERVICES, CORE | PARK [...] | + + + + + | [facility] | [address] | [place] [address] | | | [facility] | | | | | HEALTH [...] | | | LABORATORY | | | [place] | | | SERVICES, | | | [...] SERVICES, | | | | | | [facility] | | | | | | HEALTH [...] | + + + + + | [facility] | [address] | [place] [address] | | | SERVICES, [facility] | | | | | HEALTH [...] | + + + + + | [facility] | [address] | [place] [address] | | | SERVICES, CORE | [address] [...]
--- OUTSIDE RECORDS SUMMARY | ~2019-11-23 | XMS | Encounter Summary ---
Demographics + + + | Address | [address] | | | [place] [address] | + + + | Home Phone [...] Providers + +------+ + | Care Power Wood Sawyer Name | Role | Phone | + +------+ + | Christos Olivarez MD | PCP | | + +------+ + Encounter Details +--------+ + + + + | Date | Type | Department | Care Team | Description | +--------+ + + + + | 04/10/ | Pharmacy | Outpatient Retail | | | | 2017 | Visit | [facility] | | | | | | [address] | | | | | | [address] [place], [place] | | | | | | [address] | | | | | | [phone] | | | +--------+ + + + [...]
--- OUTSIDE RECORDS SUMMARY | ~2019-11-23 | XMS | Encounter Summary ---
Demographics + + + | Address | [address] | | | [place] [address] | + + + | Home Phone | | + + + | Preferred Language | Unknown | + + + | Marital Status | | + + + | Congregation Affiliation | CAT | + + + [...] Team Providers + +------+ + | Care Milking Machine Mechanic Name | Role | Phone | + [...] | | | | | Procedures | [place], [place] | Health and | | | | | [place] | [address] | Healing, | | | | | SERVICES | Phone: | [address] | | | | | PROVIDED | [phone] | [place], [place] | | | | | PART OF [place] | Fax: | [address] | | | | | INJ | [phone] | Phone: | | | | | [address] | | [phone] | | | | | [place] EST | | Fax: | | | | | PATIENT | | [phone] | | | | | LEVEL V | | | | | | | Study IRB: | | | | | | | [id number] Study | | | | | | [...] | 2019 | Visit | [facility] at [facility] | POOJA Leger [address] | of lower third of | | | | for Health & Healing | [address] | esophagus (HCC) | | | | [address] | [place], [place] | (Primary Dx); | | | | Mailcode: [facility] | [address] | Fatigue, unspecified | | | | for Health and | [phone] | type; Clinical | | | | Healing, [address] | | trial exam; | | | | [place], [place] | | Encounter for | | | | [address] | | antineoplastic | | | | [phone] | | immunotherapy | +--------+---------+ + + [...] or no response, score 3) - 07/31/2018 [facility] Medical oncology evaluation- offered enrollment on Checkmate [...] ABDOMEN AND PELVIS W IV CONTRAST Order: [id number] Performed: 05/20/2019 09:49 Status: Final result Visible [...] potential biopsy. Yun Ronquillo M.S., PA-C Physician Defensive Secondary Coach Medical Oncology Pager [phone] Research Note Study #: [id number] Patient Name: Jacob Sapp Patient Medical/Surgical History Date Cervical spinal stenosis 1997 Coronary artery disease - diagnosed on angiogram when experienced chest pain - treated with medications, pain attributed to esophageal spasm, never had [place] or stent 2007 H/O Diverticulosis 1997 Hernia, [...]
--- OUTSIDE RECORDS SUMMARY | ~2019-11-23 | XMS | Encounter Summary ---
Demographics + + + | Address | [address] | | | [place] [address] | + + + | Home Phone [...] Team Providers + +------+ + | Care Speaker Wirer Name | Role | Phone | + [...] | | | | lower third | [address] | Mailcode: | | | | | of esophagus | [address] | Center for | | | | | Procedures | [place], [place] | Health and | | | | | [place] | [address] | Healing, | | | | | SERVICES | Phone: | Building [address] | | | | | PROVIDED | [phone] | [place], [place] | | | | | PART OF [place] | Fax: | [address] | | | | | INJ | [phone] | Phone: | | | | | [address] | | [phone] | | | | | MG IN EST | | Fax: | | | | | PATIENT | | [phone] | | | | | LEVEL V | | | | | | | Study IRB: | | | | | | | [id number] Study | | | | | | [...] Description | +--------+---------+ + + + | 12/10/ | Office | Hematology/Medical | Yg Yun | Malignant neoplasm | | 2019 | Visit | [facility] at [facility] | POOJA Leger [address] | of lower third of | | | | for Health & Healing | [address] | esophagus (HCC) | | | | [address] | [place], [place] | (Primary Dx); | | | | Mailcode: [place] | [id number] | Clinical trial exam; | | | | for [employer] and | [phone] | Nausea | | | | Healing, [facility] 2 | | | | | | [place], [place] | | | | | | [address] | | | | | | [phone] | | | +--------+---------+ + + + [...] + + + | Blood Pressure | 90/58 | 12/10/2018 2:30 PM | | | | | PST | | + + + + + | Pulse | 60 | 12/10/2018 2:30 PM | | | | | PST | | + + + + + | Temperature | 36.6 C (97.9 F) | 12/10/2018 2:30 PM | | | | | PST | | + + + + + | Respiratory Rate | 16 | 12/10/2018 2:30 PM | | | | | PST | | + + + + + | Oxygen Saturation | 100% | 12/10/2018 2:30 PM | | | | | PST | | + + + + + | Inhaled Oxygen | - | - | | | Concentration | | | | + + + + + | Weight | 65.3 kg (144 lb) | 12/10/2018 2:30 PM | With fernando | | | | PST | | + + + + + | Height | - | - | | + + + + + | Body Mass Index | 21.9 | 09/03/2018 11:47 AM | | | [...] encounter Progress Notes Yun Ronquillo PA-C - 12/10/2018 3:10 PM PSTFormatting of this note might be differe [...] response, score 3) - 07/31/2018 [facility] Medical oncology evaluation- offered enrollment [...] investigational therapy Nivolumab/placebo - stable fatigue. Decreased appetite but gained 3 lbs. No diarrhea - increased nausea, zofran not as effective, will try compazine, can consider zyprexa night ly if necessary. - Proceed with Cycle 8 Nivolumab/placebo today, monitor closely for toxicities - liver enzymes slowly rising, monitor closely, pt clinically asymptomatic 2. Abd pain - s/p recent antibiotics for diverticulitis - no fever, no eleveated wbc - no concerning findings on recent CT scan, some indeterminate omental nodularity which nee ds to be followed - pain much improved, continue to monitor 3. Low appetite: - maintaining weight, will try compazine for nausea, may help with appetite - continue following with dietitian No orders of the defined types were placed in this encounter. No follow-up information. The patient is receiving chemotherapy which requires ongoing evaluation of toxicity due to cytotoxic therapy and assessment of disease status and disease related symptoms. Interval History: Jacob Sapp returns to clinic today for follow up. Since the last clinic visit, his nausea has increased. He has some days without nausea but can have refractory symptoms to zofran with emesis. Stable fatigue. Jacob endorses some dep ressive symptoms, denies SI/HI, not interested in counseling services at this time, thinks h don "just needs to get out of the house more". His recently had knee replacement surgery so they have been home bound more. He plans to enroll in water aerobics with his . No fevers, chills, change in bowel habits, jaundice. His abdominal pain has improved. No CP, SOB, cough, rash or swelling. [...] reviewed, see scanned document Physical Examination: BP 90/58 | Pulse 60 | Temp (Src) 36.6 C (97.9 F) (Oral) | RR 16 | Wt 65.3 kg (144 lb) | SpO2 100% | BMI 21.9 kg/(m^2) ECOG PS: 1 Gen: Well-developed, well-nourished, [...] Labs: Lab Results Component Value Date NA 137 12/10/2018 K 3.8 12/10/2018 CL 103 12/10/2018 BICARB 29 12/10/2018 BUN 8 12/10/2018 CR 1.0 12/10/2018 GLU 110 12/10/2018 CA 9.2 12/10/2018 AST 100 12/10/2018 ALT 98 12/10/2018 AP 85 12/10/2018 TBILI 0.8 12/10/2018 TP 6.5 12/10/2018 ALB 3.2 12/10/2018 Lab Results Component Value Date WBC 3.3 12/10/2018 HB 10.4 12/10/2018 HCT 30.1 12/10/2018 PLT 165 12/10/2018 MCV 99.3 12/10/2018 RDW 45.7 11/27/2018 Imaging: No new imaging to review Yun Ronquillo M.S., PADerrellC Physician Oxygen Plant Operator Medical Oncology Pager [phone] Kerrie Monahan RN - 12/10/2018 3:10 PM PST Research RN Note: Mr. Jacob Sapp presents today for C8D1 nivolumab vs placebo after signing consent to particip ate in [id number]: A Randomized, Multicenter, Double Blind, Phase III [...] 70.2 kg IV access: PIV RD/SW referral: water sander at [facility] established Multi-D MD: Chemotherapy teaching: done per chemo binder and ICF My Chart access: active and encouraged Patient reports that neoadjuvant chemo was completed at [facility] in [place], [place]. Radiation completed at [facility]. He reports the following medical and surgical history at baseline: Past Medical History: Diagnosis Date Cervical spinal stenosis 1997 Coronary artery disease 2007 diagnosed on angiogram when experienced chest pain - treated with medications, pain attr ibuted to esophageal spasm, never had PA or stent H/O Diverticulosis 1997 Hernia, hiatal, [...] days Infections and Infestations- other (Diverticulitis) 10/2110/31/18 documented in this enco unter Plan of [...]
--- OUTSIDE RECORDS SUMMARY | ~2019-11-23 | XMS | Encounter Summary ---
Demographics + + + | Address | [address] | | | [place] [address] | + + + | Home Phone [...] Providers + +------+ + | Care Power Press Supervisor Name | Role | Phone | [...] + + + + | 05/20/ | Hospital | Hematology/Medical | Onc, Gen [address] | | | 2019 | Encounter | Oncology at [facility] | [address] [place], | | | | | [address] | [place] [address] | | | | | Mailcode: [place] | | | | | | for Health and | | | | | | [facility] 2 | | | | | | [place], [place] | | | | | | [address] | | | | | | [phone] | | | +--------+ + + + [...] documented as of this encounter Progress Notes Eula Garcia RN - 05/20/2019 11:23 AM PDTChemotherapy Nurse Note Name: Jacob Sapp Date: 05/20/2019 Physician: MD Walt Allergies: Jacob is allergic to codeine. Diagnosis: Esophageal cancer Significant Other: at chair side Nursing Assessment: Fever: no; Diarrhea:No Constipation: No SOB / Cough: no; Rash: no Edema: no; Mucositis: no; Neuropathy: no; S/S Bleeding: no; Severity (1=Not at all, 2=A little, 3=Quite a bit, 4=Very much) Nausea and/or Vomitin Fatigue: 1 Pain: 0 Location: Duration: Narrative: Patient here for Day 1 cycle 14 of INV 51110 Nivolumab/placebo. PIV placed in starter and labs drawn. Positive blood return on IV line prior and after infu callie. Medication infused with 250ml NS sidearm bag. Pt tolerated without incident. PIV d/ c'd and intact. 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 Refer to MAR and Onc Lines and [...] 480 mg in | New Bag | 05/20/20 | 480 mg | 120 | | | INV NaCl 0.9% IV 480 mg, | | 19 3:35 | | mL/hr | | | intravenous, Administer over 30 | | PM PDT | | | | | Minutes, ONCE, 1 dose, Tue | | | | | | | 05/20/19 at 1500, Pt ID: [id number], | | | | | | | Administer using a 0.2 micron | | | | | | | filter. Flush line with 15-20 mL | | | | | | | of normal saline. For | | | | | | | investigational use only, HIGH | | | | | | | ALERT MEDICATION IRB:[id number], | | | | | | | Protocol:[id number], Infuse using | | | | | | | 0.2 micron filter., | | | | | | + +---------+ +--------+-------+------+ +---+---+ | | | +---+---+ documented in this encounter"
--- OUTSIDE RECORDS SUMMARY | ~2019-11-23 | XMS | Encounter Summary ---
Demographics + + + | Address | [address] | | | [place] [address] | + + + | Home Phone [...] Team Providers + +------+ + | Care Artificial Cherry Maker Name | Role | Phone | + +------+ + | Christos Olivarez MD | PCP | | + +------+ + Encounter Details +--------+ + + + + | Date | Type | Department | Care Team | Description | +--------+ + + + + | 03/18/ | Production Gear Cutter | Hematology/Medical | Krunal Godoy, | | | 2019 | | [facility] at [place] | ,PhD [address] | | | | | for Health & Healing | [place], [place] | | | | | [address] | [address] | | | | | Mailcode: [place] | [phone] | | | | | for Health and | | | | | | [facility], [facility] 2 | | | | | | [place], [place] | | | | | | [address] | | | | | | [phone] | | | +--------+ + + + [...]
--- OUTSIDE RECORDS SUMMARY | ~2019-11-23 | XMS | Encounter Summary ---
Demographics + + + | Address | [address] | | | [place] [address] | + + + | Home Phone [...] Team Providers + +------+ + | Care Leguillon Debeader Name | Role | Phone | + [...] | | | | | Procedures | [place], [place] | Health and | | | | | [place] | [address] | Healing, | | | | | SERVICES | Phone: | [address] | | | | | PROVIDED | [phone] | [place], [place] | | | | | PART OF [place] | Fax: | [address] | | | | | INJ | [phone] | Phone: | | | | | [address] | | [phone] | | | | | MG Study | | Fax: | | | | | IRB: [id number] | | [phone] | | | | | Study Title: [...] | 03/19/ | Clinical | Laboratory at [facility] | | Lab Draw | | 2019 | Support | [address] | | | | | Staff | [place], [place] | | | | | | [address] | | | | | | [phone] | | | +--------+ + + + [...] [facility] | [address] | [place] [address] | | | SERVICES, CORE | PARK [...] [facility] | [address] | [place] [address] | | | SERVICES, CORE | ASHLEY [...] [facility] | [address] | [place] [address] | | | SERVICES, [place] [facility] | | | | | HEALTH [...] LABORATORY | [address] | [place] [address] | | | [facility], [place] [facility] | | | | | HEALTH [...] | | | LABORATORY | | | [place] | | | SERVICES, | | | [...] SERVICES, | | | | | | [place] [facility] | | | | | | [...] Kidney Disease <15 mL/min/1.73 sq m | [place] | | Kidney Failure Estimated GFR [...] + + | Performing | Address | City[facility] | Phone Number | | Organization | | | | + + + + + | [facility] | [address] | [place] [address] | | | SERVICES, [place] [facility] | | | | | HEALTH [...]
--- OUTSIDE RECORDS SUMMARY | ~2019-11-23 | XMS | Encounter Summary ---
Demographics + + + | Address | [address] | | | [place] [address] | + + + | Home Phone [...] Team Providers + +------+ + | Care Rn Travel Name | Role | Phone | + [...] | 2018 | on | [facility] [place] | [address] | (courtesy call-cycle | | | | for Health & Healing | [address] | 1 nivolumab) | | | | [address] | [place] [address] | | | | | Mailcode: [place] | [phone] | | | | | for Health and | | | | | | Healing, [address] | | | | | | [place], [place] | | | | | | [address] | | | | | | [phone] | | | +--------+ + + + [...]
--- OUTSIDE RECORDS SUMMARY | ~2019-11-23 | XMS | Clinical Summary ---
Demographics + + + | Address | [address] | | | [place] [address] | + + + | Home Phone | | + + + | Preferred Language | Unknown | + + + | Marital Status | | + + + | Sabianism Affiliation | 1041 | + + + | Race | Unknown | + + + | Ethnic Group | Unknown | + + + Author + + + | Author | [facility] (Historical as of | | | 07-12-19) | + + + | Organization | [facility] (Historical as of | | | 07-12-19) [...] [place], [place] | | | | | [address] | | + + + + + Care Team Providers + +------+ + | Care Belt Worker Name | Role | Phone | [...]
--- OUTSIDE RECORDS SUMMARY | ~2019-11-23 | XMS | Encounter Summary ---
Demographics + + + | Address | [address] | | | [place] [address] | + + + | Home Phone [...] Team Providers + +------+ + | Care Shop Repairer Name | Role | Phone | + +------+ + | Christos Olivarez MD | PCP | | + +------+ + Reason for Visit + + + | Reason | Comments | + + + | Immunotherapy | Study Nivo | + + + Encounter Details +--------+ + + + + | Date | Type | Department | Care Team | Description | +--------+ + + + + | 10/01/ | Hospital | Hematology/Medical | A, [address] | | | 2018 | Encounter | Oncology at [facility] | [address] [place], | | | | | [address] | [place] [address] | | | | | Mailcode: Center | | | | | | for Health and | | | | | | [facility], [facility] 2 | | | | | | [place], [place] | | | | | | [address] | | | | | | [phone] | | | +--------+ + + + [...] documented as of this encounter Progress Notes Syeda Carrillo RN - 10/01/2018 1:07 PM PSTChemotherapy Nurse Note Name: Jacob Sapp Date: 10/01/2018 Physician: Agusto Allergies: Jacob is allergic to codeine. Diagnosis: esophageal Significant Other: [place], spouse Nursing Assessment: Fever: no; Diarrhea:No Constipation: No SOB / Cough: no; Rash: no Edema: no; Mucositis: no; Urinary: no; Neuropathy: no; S/S Bleeding: no; Severity (1=Not at all, 2=A little, 3=Quite a bit, 4=Very much) Nausea and/or Vomitin Fatigue: 1 Pain: 0 Narrative: Patient here for Study Pembro. PIV right AC. Positive blood return on IV line prior and after infusion. Medication infused with 250ml NS sidearm bag. Pt tolerated without incident. PIV d/c'd and intact. 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 Refer to MAR and Onc Lines [...] 240 mg in | New Bag | 10/01/20 | 240 mg | 120 | | | INV NaCl 0.9% IV 240 mg, | | 18 3:36 | | mL/hr | | | intravenous, Administer over 30 | | PM PST | | | | | Minutes, ONCE, 1 dose, Tue | | | | | | | 10/01/18 at 1500, Pt ID: [id number], | | | | | | | Administer using a 0.2 micron | | | | | | | filter. Flush line with 15-20 mL | | | | | | | of normal saline. For | | | | | | | investigational use only, HIGH | | | | | | | ALERT MEDICATION IRB:[id number], | | | | | | | Protocol:[id number], Infuse using | | | | | | | 0.2 micron filter., | | | | | | + +---------+ +--------+-------+------+ +---+---+ | | | +---+---+ documented in this encounter"
--- OUTSIDE RECORDS SUMMARY | ~2019-11-23 | XMS | Encounter Summary ---
Demographics + + + | Address | [address] | | | [place] [address] | + + + | Home Phone [...] Team Providers + +------+ + | Care Drum Attendant Name | Role | Phone | [...] + + | 05/14/ | Hospital | [facility] [address] | Juvenal Vicente MD | | | 2018 - | Encounter | [facility] Mailcode: | [address] | | | | | KPV13 Juan | [place], | | | 05/22/ | | [place], | [place] [address] | | | 2017 | | [place] [address] | [phone] | | | | | [phone] | | | +--------+ + + + [...] for a total o f 90 days. [id number]-strd-xdjytozx Liqd Commonly known as: CEROVITE 15 mL [...] Zamora MD General Surgery, R4 Pager # [phone] cott, Brian Torres MD - 05/21/2018 7:03 [...] MD Otolaryngology-Head & Neck Surgery, PGY1 Pager: [phone] Cherie Norwood MD - 05/20/2018 12:50 PM [...] Zamora MD General Surgery, R4 Pager # [phone] Bebe Leija MD - 8:58 AM PDT [...] pain medications per primary team, pt prefers Lindsay APS will sign off, please re-page with [...] MD Otolaryngology-Head & Neck Surgery, PGY1 Pager: [phone] Chula Bishop MD - 05/19 8:38 AM [...] MD Otolaryngology-Head & Neck Surgery, PGY1 Pager: [phone] STAFF: I personally interviewed the patient, performed [...] and summary of old medical records (source: uBeam), as summarized in the body of the note. Discussion of case with another healthcare provider Nurse. Please page APS #[phone] with questions and concerns. TRINO ROACH MD [...] week Darin Zaragoza MD General Surgery PGY2 [phone] STAFF: I personally interviewed the patient, performed [...] and summary of old medical records (source: uBeam), as summarized in the body of the note. Discussion of case with another healthcare provider Nurse, surgery. Please page APS #[phone] with questions and concerns. TRINO ROACH MD [...] scheduled Discussed with RN. Please page APS #[phone] with questions and concerns. Tio Siegel NP [...] Intake/Output Summary (Last 24 hours) at 05/17/18 0639 Last data filed at 05/17/18 0600 Gross [...] and appreciate APS -remove wilkerson -transfer to [facility] with telemetry - Start suppository - Removeal [...] pending -PPI -scheduled reglan -NGT stays to [facility] for now HENT: -keep CHELLE until less than 30 FEN -replete lytes Mg >2 and K>4 and check dialy -STRICT NPO Renal No active issues or concerns Remove today ID No active issues Heme PPx lovenox Daily labs for now Endo -monitor, blood sugars controlled no DM Disposition: transfer to [facility] Brian Villafuerte MD Otolaryngology-Head & Neck Surgery, PGY1 Pager: [phone] STAFF: I personally interviewed the patient, performed [...] sugars controlled no DM Disposition: transfer to [facility] Seen and discussed with Dr Chula Pal MD Signed: DARIN ZARAGOZA MD General Surgery [facility] Department of Surgery STAFF: I personally [...] attrib uted to esophageal spasm, never had ND or stent Diverticulosis GERD without esophagitis Hernia, [...] Evelyn Mancia NP Adult Pain Service Pager [phone] Team Pager [phone] Darius Chu MD - 05/16/2018 7:46 AM [...] None Spines:Cleared CODE: Full Disposition: Transfer to [facility] Chula Liao MD Emergency Medicine Resident, PGY2 [facility] Pager #[phone] I saw and evaluated the patient. I agree with the findings and the plan of care as tom godfrey in the resident s note. DARIUS PIEDRA MD [address] [place] [id number] eidy Gusman PA- C - 05/15/2018 11:22 AM PDT Trauma and Surgical ICU Daily Progress Note Author: LEIDY GUSMAN PA-C Date: 05/15/2018 11:23 AM Hospital Day: 1 ICU Day: 2 HPI: Jacob Iverson is a 67 y.o. M with CAD (on ASA, statin, beta chel, no stents), HLD, HTN , depression, [id number] esophageal adenocarcinoma diagnosed in 11/11 after workup [...] Department of Surgery Mail Code: L611 [address] [phone] Associated attestation - Debra Jon MD,MPH - [...] IS, OOB to chair -OK for use Onepager for Chef Surfings -transition off fentanyl and onto epidural alone [...] encounter. Signed: DARIN ZARAGOZA MD General Surgery [facility] Department of Surgery rexel, Cherie Ang [...] Wagoner MD General Surgery, R4 Pager # [phone] hEvelyn olivares N P - 05/15/2018 7:24 [...] attrib uted to esophageal spasm, never had ND or stent Diverticulosis GERD without esophagitis Hernia, [...] Evelyn Mancia NP Adult Pain Service Pager [phone] Team Pager [phone] documented in this e ncounter Plan of [...] | | | LABORATORY | | | [facility] | | | SERVICES, | | | [...] the MDRD equation recommended by the | [facility] | | National Kidney Disease Education Program. [...] | [facility] | [address] | [place] [address] | | | TIMO, JUSTIN | KATHERINE [...] | + + + + + | [facility] | [address] | [place] [address] | | | JUSTIN GREENWOOD | [address] | | | + + + + + X-RAY PORTABLE CHEST 1 VIEW (05/22/2018 4:48 AM PDT) + + | Specimen | + + | | + + + + + | Narrative | Performed At | + + + | EXAM: PA CHEST 1 VIEW HISTORY: s/p 3 field [...] Interface - 05/22/2018 9:22 AM PDT EXAM: PA CHEST 1 | | VIEW HISTORY: s/p [...] or sooner if needed. CHERY CABELLO PA-C [facility] | | | [address] [facility] Mailcode: Kpv13 [place] [address] | | | [phone] | | + + + X-RAY ESOPHAGRAM (05/21/2018 8:48 AM PDT) + + | Specimen | + + | | + + + + + | Narrative | Performed At | + + + | EXAM: Esophagram with club concierge radiograph HISTORY: Assess for | [facility] | [...] AM PDT EXAM: Esophagram | | with club concierge radiograph HISTORY: Assess for anastomotic leak COMPARISON: [...] | | | LABORATORY | | | [facility] | | | SERVICES, | | | [...] | + + + + + | [facility] | [address] | [place] [address] | | | SERVICES, CORE | KATHERINE [...] [facility] | [address] | [place] [address] | | | SERVICES, CORE | [address] | | | + + + + + X-RAY PORTABLE CHEST 1 VIEW (05/21/2018 4:55 AM PDT) + + | Specimen | + + | | + + + + + | Narrative | Performed At | + + + | EXAM: PA CHEST 1 VIEW HISTORY: s/p 3 field [...] Interface - 05/21/2018 8:49 AM PDT EXAM: PA CHEST 1 | | VIEW HISTORY: s/p [...] now presented. | | | |Final signature: Cralos A Owens MD 05/21/2018 8:48 AM | [...] At | + + + | EXAM: PA CHEST 1 VIEW HISTORY: s/p 3 field [...] Interface - 05/20/2018 9:20 AM PDT EXAM: PA CHEST 1 | | VIEW HISTORY: s/p [...] | | | LABORATORY | | | [facility] | | | SERVICES, | | | [...] | [facility] | [address] | [place] [address] | | | SERVICES, CORE | PARK [...] [facility] | [address] | [place] [address] | | | SERVICES, CORE | KATHERINE [...] (H) | 70 - 99 mg/dL | [facility] - | | | GLUCOSE, | | [...] + + + | [facility] | [address] | [place] | | | MARISELA MATT OF CARE | [address] | [address] | | | TESTS | | | [...] At | + + + | EXAM: PA CHEST 1 VIEW HISTORY: s/p 3 field [...] Interface - 05/19/2018 11:10 AM PDT EXAM: PA CHEST 1 | | VIEW HISTORY: s/p [...] + + + | [facility] | [address] | [place] | | | [place] POINT OF CARE | [facility] | [address] | | | TESTS | | | [...] | | | LABORATORY | | | [facility] | | | SERVICES, | | | [...] [facility] | [address] | [place] [address] | | | SERVICES, CORE | PARK [...] | + + + + + | [facility] | [address] | [place] [address] | | | JUSTIN GREENWOOD | KATHERINE [...] [facility] | [address] | [place] | | | [place] [facility]INT OF CARE | [address] | [address] | | | TESTS | | | [...] [facility] | [address] | [place], [place] | | | MARISELA MATT OF CARE | [address] | [address] | | | TESTS | | | [...] [facility] | [address] | [place] | | | MARISELA MATT OF [facility] | [address] | [address] | | | TESTS | | | | + + + + + X-RAY PORTABLE CHEST 1 VIEW (05/18/2018 5:39 AM PDT) + + | Specimen | + + | | + + + + + | Narrative | Performed At | + + + | EXAM: PA CHEST 1 VIEW HISTORY: s/p 3 field [...] Interface - 05/18/2018 9:40 AM PDT EXAM: PA CHEST 1 | | VIEW HISTORY: s/p [...] [facility] | [address] | [place] [address] | | | SERVICES, CORE | PARK [...] | | | LABORATORY | | | [facility] | | | SERVICES, | | | [...] the MDRD equation recommended by the | [facility] | | National Kidney Disease Education Program. [...] | [facility] | [address] | [place] [address] | | | TIMO, JUSTIN | PARK [...] | | LABORATORY | | | JUSTIN GREEWNOOD | + + + + + + + + | Performing | Address | City/State/Zipcode | Phone Number | | Organization | | | | + + + + + | [facility] | [address] | [place] [address] | | | JUSTIN [address] | [address]INE [...] At | + + + | EXAM: PA CHEST 1 VIEW HISTORY: Esophageal adenocarcinoma status [...] Interface - 05/17/2018 2:18 PM PDT EXAM: PA CHEST 1 | | VIEW HISTORY: Esophageal [...] | + + + + + | [facility] | [address] [facility] | [place] [address] | | | SERVICES, CORE | PARK [...] | | | LABORATORY | | | [facility] | | | SERVICES, | | | [...] the MDRD equation recommended by the | [facility] | | National Kidney Disease Education Program. [...] [facility] | [address] | [place] [address] | | | SERVICES, CORE | PARK [...] [facility] | [address] | [place] [address] | | | JUSTIN GREENWOOD | KATHERINE [...] [facility] | [address] | [place] [address] | | | SERVICES, CORE | PARK [...] | | | LABORATORY | | | [facility] | | | SERVICES, | | | [...] | [facility] | [address] | [place] [address] | | | SERVICES, [facility] | [address] | | | + + + + + PROCEDURE NOTE (05/16/2018 1:51 PM PDT)X-RAY PORTABLE CHEST 1 VIEW (05/16/2018 6:21 AM PD T) + + | Specimen | + + | | + + + + + | Narrative | Performed At | + + + | EXAM: PA CHEST 1 VIEW HISTORY: Esophageal adenocarcinoma status [...] Interface - 05/16/2018 11:25 AM PDT EXAM: PA CHEST 1 | | VIEW HISTORY: Esophageal [...] | [facility] | [address] | [place] [address] | | | JUSTIN GREENWOOD | KATHERINE [...] | [facility] | [address] | [place] [address] | | | SERVICESJUSTIN | [address] [...] | | | LABORATORY | | | [facility] | | | SERVICES, | | | [...] | + + + + + | [facility] | [address] | [place] [address] | | | SERVICES, CORE | [address] | | | + + + + + X-RAY PORTABLE CHEST 1 VIEW (05/15/2018 5:44 AM PDT) + + | Specimen | + + | | + + + + + | Narrative | Performed At | + + + | EXAM: PA CHEST 1 VIEW HISTORY: 67-year-old male with [...] Interface - 05/15/2018 10:11 AM PDT EXAM: PA CHEST 1 | | VIEW HISTORY: 67-year-old [...] [facility] | [address] | [place] [address] | | | SERVICES, CORE | PARK [...] [facility] | [address] | [place] [address] | | | JUSTIN GREENWOOD | [address]ATH[address] [...] | | | LABORATORY | | | [facility] | | | SERVICES, | | | [...] | + + + + + | [facility] | [address] | [place] [address] | | | SERVICES, CORE | KATHERINE [...] | Darin Zaragoza MD 05/15/2018 12:34 PM [facility] Department of | | | Surgery Operative Report Author: Darin Zaragoza MD Attending | | | Physician: Juvenal Vicente MD 05/14/2018 PATIENT INFORMATION | | | Patient Name: Jacob Iverson Date of | | | : 1950 Date of Surgery: 05/14/2018 Attending Surgeon: | | | Dr Juvenal Vicente Cork Molder Surgeon: Darin Zaragoza MD R2 | | [...] ------- Darin Zaragoza MD General Surgery PGY2 [id number] | | | | | + + + X-RAY PORTABLE CHEST 1 VIEW (05/14/2018 5:54 PM PDT) + + | Specimen | + + | | + + + + + | Narrative | Performed At | + + + | EXAM: PA CHEST 1 VIEW HISTORY: 67-year-old male with [...] Interface - 05/15/2018 10:10 AM PDT EXAM: PA CHEST 1 | | VIEW HISTORY: 67-year-old [...] [facility] | [address] | [place] [address] | | | TIMO, JUSTIN | KATHERINE [...] [facility] | [address] | [place] [address] | | | SERVICES, CORE | PARK [...] [facility] | [address] | [place] [address] | | | SERVICES, CORE | KATHERINE [...] (H) | 70 - 99 mg/dL | [facility] - | | | GLUCOSE, | | [...] [facility] | [address] | [place] | | | MARISELA MATT OF CARE | [address] | [address] | | | TESTS | | | [...] | + + + + + | [facility] | [address] | [place] [address] | | | SERVICES, CORE | KATHERINE [...] | | | LABORATORY | | | [facility] | | | SERVICES, | | | [...] | [facility] | [address] | [place] [address] | | | [facility] | [address] | | | + + + + + PROCEDURE NOTE (05/14/2018 5:01 PM PDT) + + + | Narrative | Performed At | + + + | Chula Pal MD 05/15/2018 4:59 PM [facility] Department | | | of Surgery Operative [...] Co-Surgeon: Chula Pal MD | | | Cork Molder(s): Anibal Craven MD Indication: A 67 y.o. [...] secured this in place using and Iron Bucket Hooker | | | retractor. The Wingman retractor [...] and the RSI. - Anibal Craven MD [facility] Department of Surgery | | | Pager: [phone] CO SURGEON NOTE: Attending Surgeon: Dr. Sanford | | | Jules Co-Surgeons: Dr. Chula Pal (abdomen); Dr. Wisdom | | | (Thoracic) Cork Molder(s): Anibal | | | MD Merissa; Charles [...] place using | | | and Iron Bucket Hooker retractor. The Wingman retractor was deployed to [...] Co-Surgeon: Chula Pal MD | | | Cork Molder(s): Anibal Craven MD Prior to the beginning [...] Plan: direct to ICU Anibal Craven MD [facility] Department of | | | Surgery Pager: [phone] | | + + + ABG-FULL ABL, POC (05/14/2018 4:35 PM PDT) + + + + + + | Component | Value | Ref Range | Performed | Pathologist | | | | | At | Signature | + + + + + + | PH | 7.44 | 7.37 - 7.44 | [facility] - | | | ARTERIAL, | | | [facility] | | | POC | | | MARISELA MATT | | | | | | OF CARE | | | | | | TESTS | | + + + + + + | PO2 | 208 (H) | 72 - 104 mmHg | [facility] - | | | ARTERIAL, | | [...] [facility] | [address] | [place] | | | MARISELA MATT OF [place] | [address] | [address] | | | TESTS | | | [...] [facility] | [address] | [place] | | | MARISELA MATT OF CARE | [address] | [address] | | | TESTS | | | | + + + + + PROCEDURE NOTE (05/14/2018 2:05 PM PDT) + + + | Narrative | Performed At | + + + | Dalton Wisdom MD 05/14/2018 2:11 PM Operative note | | | Date of surgery: 05/14/18 Attending Surgeon: Dalton Wisdom M.D. | | | Co-Surgeon: Juvenal Vicente M.D. Cork Molder(s): | | | MD Chery Griffith, [facility] Preoperative | | | Diagnosis(es): Esophageal adenocarcinoma [...] None apparent. Drains: | | | Bilateral 28-Swazi chest tubes. Findings: Level 7,8L, | | [...] operative field for hemostasis. We placed a 28-Swazi | | | chest tube through the [...] | | procedure. Dalton Wisdom M.D. FACS Textile Science Technician | | | of Surgery [facility] [place] Division of | | | Cardiothoracic Surgery Section of Thoracic Surgery [address] [facility] | | | [address] , [address] [place] [address] Telephone: | | | [phone] | | + + + ABG-FULL ABL, [...] + + + | [facility] | [address] | [place] | | | MARISELA MATT OF [place] | [address] | [address] | | | TESTS | | | [...] 9R and 8L LNs Drains: bilateral 28 guyanese chest tubes | | | Disposition: remains [...] [facility] | [address] | [place], [place] | | | [place] OF [facility] | [address] | [address] | | | TESTS | | | [...] | | studies. | | | MD Mraia Elena on | | | Immunohistochemical | | | 05/22/2018 at | | | stains are performed on | | | 9:09 AM | | | formalin-fixed, paraffin | | | | | | embedded tissue, using | | | | | | a biotin-free protocol | | | | | | (Bucyrus Ultraview) that | | | | | [...] | | | | | | from [employer] according | | | | | | to logistics clerk's | | | | | | instructions [...] Lanc. | | | | | | 2009;[id number]([id number]):[id number] | | | | | | nalyte [...] | | | | | determined by [facility] | | | | | | laboratories. [...] DEPARTMENT | | | | reviewed at [facility]). Per | | OF | | | [...] | | | | | | number [id number]. | | | | | | Chest, [...] research | | | | | | studies.Hydrogen Cell Tender | | | | | | sections as follows:G1, | | | | | | proximal esophageal | | | | | | margin en faceG2 | | | | | | | | | | | | G3, account retention representative | | | | | | [...] tissue)G14, | | | | | | [id number] | | | | | | | | | | | | G16, nodular gastric | | | | | | mucosa directly distal | | | | | | to GE hrppwmzaU84, | | | | | | nodular gastric | | | | | | xcxrsfC43, 2 possible | | | | | | nodes each bisected and | | | | | | differentially inked | | | | | | (esophagus)G19, 4 | | | | | | possible nodes intact | | | | | | (esophagus)G20, one | | | | | | possible node bisected | | | | | | (greater rajtlengsA34, 5 | | | | | | [...] | | | | | determined by [facility] | | | | | | laboratories. [...] | + + + + + | [facility] | [address] | [place] [address] | | | PATHOLOGY | [address] [...] [facility] | [address] | [place], [place] | | | VER[place] POINT OF CARE | [address] | [address] | | | TESTS | | | [...] [facility] | [address] | [place] | | | MARISELA MATT OF [facility] | [address] | [address] | | | TESTS | | | [...] + | Tumor in Blood Study Participant #[id number] | + + | Encounter for radiotherapy [...] | | | | | | Starting [facility] 05/15/18 at 0600, | | | | | | | Until [facility] 05/16/18 at 0559 | | | [...] | | | | ONCE, 1 dose, [place] 05/19/18 at | | PM PDT | [...] mL/hr | mL/hr | | | Starting [facility] 05/14/18 at 1745, | | AM PDT | | | | | Until [facility] 05/16/18 at 0903 | | | [...] | | | | | modification) on [facility] 05/16/18 at | | | | [...] | | | tube, ONCE, 1 dose, [facility] 05/16/18 | | PM PDT | [...]
--- OUTSIDE RECORDS SUMMARY | ~2019-11-23 | XMS | Encounter Summary ---
Demographics + + + | Address | [address] | | | [place] [address] | + + + | Home Phone [...] Team Providers + +------+ + | Care Repatcher Name | Role | Phone | + [...] Description | +--------+--------+ + + + | 04/17/ | Refill | Hematology/Medical | Sergio Cr, | Refill Request | | 2019 | | Oncology at [place] | PAEva [address] [facility] | | | | | for [facility] He[facility] | [address] | | | | | [address] | [place], [place] | | | | | Mailcode: [place] | [address] | | | | | for Health and | [phone] | | | | | Healing, [address] [address] | | | | | | [place], [place] | | | | | | [address] | | | | | | [phone] | | | +--------+--------+ + + + [...]
--- OUTSIDE RECORDS SUMMARY | ~2019-11-23 | XMS | Encounter Summary ---
Demographics + + + | Address | [address] | | | [place] [address] | + + + | Home Phone [...] Team Providers + +------+ + | Care Lumber Tailer Name | Role | Phone | + +------+ + | Christos Olivarez MD | PCP | | + +------+ + Encounter Details +--------+ + + + + | Date | Type | Department | Care Team | Description | +--------+ + + + + | 11/14/ | Hot Saw Helper | Hematology | Marie Liz, | Malignant neoplasm | | 2018 | | Oncology Study [address] | [address] | of lower third of | | | | [address] | [address] | esophagus (HCC) | | | | Mailcode: CH7M | [place] [address] | (Primary Dx) | | | | [facility] | [phone] | | | | | and Monika, | | | | | | [facility] | | | | | | Floor [place], [place] | | | | | | [address] | | | | | | [phone] | | | +--------+ + + + [...] | + + + + + | [facility] | [address] | [place] [address] | | | SERVICES, CORE | [address]LEY [...] [facility] | [address] | [place] [address] | | | SERVICES, CORE | [address] [...] | + + + + + | [facility] | [address] | [place] [address] | | | SERVICES, CORE | [address] | | | + + + + + documented in this encounter Visit Diagnoses + + | Diagnosis | + + | 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
--- OUTSIDE RECORDS SUMMARY | ~2019-11-23 | XMS | Encounter Summary ---
Demographics + + + | Address | [address] | | | [place] [address] | + + + | Home Phone [...] Team Providers + +------+ + | Care Radiophone Operator Name | Role | Phone | [...] [address] | | | | | [address] | [place] [address] | | | | | Mailcode: [place] | [phone] | | | | | for Health and | | | | | | Healing, [address] | | | | | | [place], [place] | | | | | | [address] | | | | | | [phone] | | | +--------+ + + + [...]
--- OUTSIDE RECORDS SUMMARY | ~2019-11-23 | XMS | Encounter Summary ---
Demographics + + + | Address | [address] | | | [place] [address] | + + + | Home Phone [...] Team Providers + +------+ + | Care Hot Mill Operator Name | Role | Phone | + +------+ + | Luis Leiva DO | PCP | | + +------+ + Reason for Visit +--------+ + | Reason | Comments | +--------+ + | Nausea | | +--------+ + Encounter Details +--------+ + + + + | Date | Type | Department | Care Team | Description | +--------+ + + + + | 01/22/ | Clinical | Radiation Oncology | Bill Bailey [address] | Nausea | | 2018 | Support | at [facility] [address] [facility] | | | | Staff | [place] | [place], [place] | | | | | Marisol/[id number] | [address] | | | | | [facility], | | | | | | [place] [address] | | | | | | [phone] | | | +--------+ + + + [...] + documented as of this encounter Progress Miguel Valadez RN - 01/22/2018 9:30 AM PSTPt reports pretty severe nausea over past coup le of days, no emesis. Daily BMs Has J tube intact; J tube working and getting in TF formula plus fluids via J tube. Small amounts of fluids orally throughout the day. Was taking Ondansetron 8mg TID which was somewhat effective. Stopped taking Ondansetron and started taking Prochlorperazine 5mg TID which has NOT been e ffective at all. Pt requests to go back on Ondansetron 8mg TID but would like a different second anti-nausea medication as well. Per Dr. Barrera, [place] and new antiemetic med [place] Promethazine sent [place] o [place] pharmacy as well. Pt was instructed by this nurse to take both of these medications around the clock as direc epifanio for nausea. Pt understood and had no further questions. WCTM. documented in this en counter Plan of Treatment Not on filedocumented as of this encounter Visit Diagnoses + + | Diagnosis | + + | Encounter for radiotherapy - Primary Radiotherapy | + + documented in this encounter Administered Medications + +--------+ +------+------+------+ | Medication Order | MAR | Action | Dose | Rate | Site | | | Action | Date | | | | + +--------+ +------+------+------+ | ondansetron ODT (ZOFRAN ODT) | Given | 01/22/20 | 8 mg | | | | tablet 8 mg 8 mg, oral, ONCE, 1 | | 18 9:41 | | | | | dose, 01/22/18 at 0945 | | AM PST | | | | + +--------+ +------+------+------+ +---+---+ | | | +---+---+ documented in this encounter"
--- OUTSIDE RECORDS SUMMARY | ~2019-11-23 | XMS | Encounter Summary ---
Demographics + + + | Address | [address] | | | [place] [address] | + + + | Home Phone [...] Providers + +------+ + | Care News Content Specialist Name | Role | Phone | + +------+ + | Christos Olivarez MD | PCP | | + +------+ + Reason for Visit + + + | Reason | Comments | + + + | Infusion | | + + + Encounter Details +--------+ + + + + | Date | Type | Department | Care Team | Description | +--------+ + + + + | 10/15/ | Hospital | Hematology/Medical | A, [address] | | | 2018 | Encounter | Oncology at [facility] | [address] [place], | | | | | [address] | [place] [address] | | | | | Mailcode: [place] | | | | | | for Health and | | | | | | [facility], [facility] [address] | | | | | | [place], [place] | | | | | | [address] | | | | | | [phone] | | | +--------+ + + + [...] + + + | Blood Pressure | 107/70 | 10/15/2018 9:18 AM | | | | | PST | | + + + + + | Pulse | 62 | 10/15/2018 9:18 AM | | | | | PST | | + + + + + | Temperature | 36.7 C (98 F) | 10/15/2018 9:18 AM | | | | | PST | | + + + + + | Respiratory Rate | 16 | 10/15/2018 9:18 AM | | | | | PST | | + + + + + | Oxygen Saturation | 100% | 10/15/2018 9:18 AM | | | | | PST | | + + + + + | Inhaled Oxygen | - | - | | | Concentration | | | | + + + + + | Weight | 67 kg (147 lb 12.8 | 10/15/2018 9:18 AM | | | | oz) | PST | | + + + + + | Height | - | - | | + + + + + | Body Mass Index | 22.47 | 09/03/2018 11:47 AM | | | [...] encounter Progress Notes Juanita Acharya RN - 10/15/2018 8:42 AM PSTImmunotherapy Nurse Note Name: Jacob Sapp Physician: Seen by ILIANA Ronquillo today Diagnosis: Esophageal Cancer Significant Other: Spouse at chairside Nursing Assessment: Diarrhea:Yes, Patient encouraged to take PRN Immodium and increase hydration. Pt dx'ed with diverticulosis by PCP last week and started on antibx. Has been unable to finish r/t loose stools and nausea. Constipation: No SOB / Cough: no; Rash: no Edema: no; Mucositis: no; Severity (1=Not at all, 2=A little, 3=Quite a bit, 4=Very much) Nausea and/or Vomitin Fatigue: 2 Pain: 0 Narrative: Patient here for INV Nivolumab. Per ILIANA Ronquillo, ok to proceed with treaatment t lynda given GI infection. PIV in place from starter RN, flushed and has brisk blood return. Potassium 3.1 today; per ILIANA pt given 40 mEq po Kdur. Positive blood return on IV line prior and after infusion. Medic ation infused with 250ml NS sidearm bag. Pt tolerated without incident. PIV d/c'd and int act. 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 Refer to MAR [...] 240 mg in | New Bag | 10/15/20 | 240 mg | 120 | | | INV NaCl 0.9% IV 240 mg, | | 18 11:04 | | mL/hr | | | intravenous, Administer over 30 | | AM PST | | | | | Minutes, ONCE, 1 dose, Tue | | | | | | | 10/15/18 at 0915, Pt ID: [id number], | | | | | | | Administer using a 0.2 micron | | | | | | | filter. Flush line with 15-20 mL | | | | | | | of normal saline. For | | | | | | | investigational use only, HIGH | | | | | | | ALERT MEDICATION IRB:[id number], | | | | | | | Protocol:[id number], Infuse using | | | | | | | 0.2 micron filter., | | | | | | + +---------+ +--------+-------+------+ +---+---+ | | | +---+---+ + +-------+ +--------+---+---+ | potassium chloride SR (K-DUR) | Given | 10/15/20 | 40 mEq | | | | tablet 40 mEq 40 mEq, oral, | | 18 11:04 | | | | | ONCE, 1 dose, Jasmin 10/15/18 at | | AM PST | | | | | 1015 | | | | | | + +-------+ +--------+---+---+ +---+---+ | | | +---+---+ documented in this encounter"
--- OUTSIDE RECORDS SUMMARY | ~2019-11-23 | XMS | Encounter Summary ---
Demographics + + + | Address | [address] | | | [place] [address] | + + + | Home Phone [...] Team Providers + +------+ + | Care Runner Out Name | Role | Phone | + +------+ + | Christos Olivarez MD | PCP | | + +------+ + Encounter Details +--------+ + + + + | Date | Type | Department | Care Team | Description | +--------+ + + + + | 01/22/ | Documentati | Hematology | Krunal Godoy, | | | 2019 | on | Oncology Study [address] | ,PhD [address] | | | | | [address] | [place], [place] | | | | | Mailcode: [facility] | [address] | | | | | [facility] | [phone] | | | | | and [address]ika, | | | | | | Building | | | | | | Floor [place], [place] | | | | | | [address] | | | | | | [phone] | | | +--------+ + + + [...]
--- OUTSIDE RECORDS SUMMARY | ~2019-11-23 | XMS | Encounter Summary ---
Demographics + + + | Address | [address] | | | [place] [address] | + + + | Home Phone [...] Team Providers + +------+ + | Care Leach Runner Name | Role | Phone | + [...] + + + + | 07/11/ | Telephone | [facility] | Eleonora Ybarra, | Treatment Planning | | 2018 | | Center at [facility] [address] | MD [address] | | | | | [address] | Ave [place], [place] | | | | | Mailcode: [place] | [address] | | | | | [facility] and | [phone] | | | | | [facility], [facility] [address] | | | | | | [place], [place] | | | | | | [address] | | | | | | [phone] | | | +--------+ + + + [...]
--- OUTSIDE RECORDS SUMMARY | ~2019-11-23 | XMS | Encounter Summary ---
Demographics + + + | Address | [address] | | | [place] [address] | + + + | Home Phone | | + + + | Preferred Language | Unknown | + + + | Marital Status | | + + + | Mormonism Affiliation | CAT | + + + | Race | White | + + + | Ethnic Group | Not or | + + + Author + + + | Author | [facility] | + + + | Organization | [facility] | + + + | Address [...] + +------+ + | Care Director Of Music Name | Role | Phone | + [...] | | | neoplasm of | ,PhD [address] | [address] | | | | | esophagus, | [address] | [address] | | | | | unspecified | [facility] | [address] | | | | | [address] | [place], [place] | | | | | | [facility] | [address] Phone: | | | | | | [place] [address] | [phone] | | | | | | Phone: | Fax: | | | | | | [phone] | [phone] | | | | | | Fax: | | | | | | | [phone] | | +--------+--------+ + + + + Encounter Details +--------+---------+ + + + | Date | Type | Department | Care Team | Description | +--------+---------+ + + + | 07/31/ | Office | Hematology/Medical | Marie Liz, | Malignant neoplasm | | 2018 | Visit | Oncology at Center | [address] | of lower third of | | | | for Health & Healing | Road [address] | esophagus (HCC) | | | | [address] | [place] [address] | (Primary Dx) | | | | Mailcode: [place] | [phone] | | | | | for Health and | | | | | | Healing, [address] | | | | | | [place], [place] | | | | | | [address] | | | | | | [phone] | | | +--------+---------+ + + + [...] + + + | Blood Pressure | 134/86 | 07/31/2018 2:14 PM | | | | | PDT | | + + + + + | Pulse | 96 | 07/31/2018 2:14 PM | | | | | PDT | | + + + + + | Temperature | 36.6 C (97.9 F) | 07/31/2018 2:14 PM | | | | | PDT | | + + + + + | Respiratory Rate | 16 | 07/31/2018 2:14 PM | | | | | PDT | | + + + + + | Oxygen Saturation | 99% | 07/31/2018 2:14 PM | | | | | PDT | | + + + + + | Inhaled Oxygen | - | - | | | Concentration | | | | + + + + + | Weight | 66.2 kg (146 lb) | 07/31/2018 2:14 PM | | | | | PDT | | + + + + + | Height | 172.7 cm (5' 8") | 07/31/2018 2:14 PM | | | | | PDT | | + + + + + | Body Mass Index | 22.2 | 07/31/2018 2:14 PM | | | | | PDT [...] + documented as of this encounter Progress Ad Guillory RN - 07/31/2018 2:00 PM PDTResearch RN Consent Note The subject was seen in clinic on 07/31/18 by the Estate Tax Examiner, Marie Liz, and me. Mr. Marimar lange was offered participation in the study entitled "[id number]: A Randomized, Multicenter, Vera ble Blind, Phase III Study of Adjuvant Nivolumab or Placebo in Subjects with Resected Lower Esophageal, or Gastroesophageal Junction Cancer (CheckMate 577: CHECKpoint pathway and nivol uMab clinical Trial Evaluation 577)". The PI discussed both the protocol and alternative [place] atment options with the subject and was given a copy of the consent form to review. Mr. Sapp was given adequate opportunity to consider all options and has agreed to take part in the study.We discussed the overall consent form at length and reviewed each and every se ction. I emphasized the potential risks and benefits as well as the listed side effects. We discussed the voluntary and investigational nature of participating in a clinical trial. We discussed the rights of study participants and the release of private health information . The eligibility process, next steps and study schedule were outlined in detail. The calend ar in the Informed Consent was highlighted in order to use as reference. Reproductive risks were discussed. Mr. Sapp understands that he needs to take adequate prec autions to against fathering a child while on study treatment. Considerations related to reimbursement were reviewed. We discussed the standard of care ve rsus uniquely study related care and Mr. Sapp verbalized understanding between the two jose ng types and that all standard of care will be billed to his insurance and his responsibilit y. Mr. Sapp is currently not on any medications that would deem him exclusionary from particip ating in this study. He has also met the appropriate medication "wash out" period criteria a s mandated by the study. Mr. Sapp asked valid questions and confirmed these were answered to his satisfaction. He ve rbalized understanding of the informed consent process, the information presented. He expres sed understanding of the study, procedures and the associated risks therefore demonstrating competency to enroll in the trial. Mr. Sapp signed the consent form on 07/31/18 at 3:30pm prio r to the initiation of any study procedures. He was given a signed copy of the consent form for his records on 07/31/18. Study procedures have been tentatively scheduled to begin after eligibility has been confirmed and registration has been completed. He will be updated with any new information as it become available or is required. Mr. Sapp has my information to c ontact me at any time. MENG PORTER RN, BSN, CCRP HEMATOLOGY/MEDICAL ONCOLOGY AT [facility] Jeffrey Roy, Marie - 07/31 2:00 PM PDT Oncology History/ Assessment: (Outside records reviewed) 1. Cancer Staging Malignant neoplasm of lower [...] or no response, score 3) - 07/31/2018 [facility] Medical oncology evaluation- offered enrollment [...] by Marie Liz MD on 07/31/2018 - We are at 11 weeks post-op, would need to be randomized by 16 weeks if he wanted to parti cipate in the adjuvant trial. - We discussed the diagnosis and stage of the disease, the standard treatment recommendatio n which includes observation, following trimodality therapy. Prognosis was discussed includ ing the lack of role of adjuvant therapy. He also did not have a robust response to chemothe rapy, thus there would be even less enthusiasm for more chemotherapy in this setting, and th is is not proven. - he was referred for consideration of the above trial, this was discussed in detail, the d esign, rationale of the trial, the treatment the placebo controlled design, he asked good qu estions - he has no other significant medical issues, no active cardiac hx, no autoimmune history, no prior cancer, he is a good candidate No orders of the defined types were placed in this encounter. No follow-up information. History of Present Illness: Jacob Sapp is being seen in consultation at the request of Dr. Moon for evaluation of cli nical trial options. This is a pleasant 67 y.o. Who is 11 weeks s/p esophagectomy. He is recovering well, he is eating, small meals, no pain, he has no wound issues, no antibiotics needed, no fever, he i s having some issues with sleep due to reflux issues, he plans on getting a lift bed to help . Past Medical History: No date: Cervical spinal stenosis 2007: Coronary artery disease Comment: diagnosed on angiogram when experienced chest pain - treated with medications, pain attributed to esophageal spasm, never had DE or stent No date: Diverticulosis No date: GERD without esophagitis No date: Hernia, hiatal No date: Hyperlipidemia No date: LBBB (left bundle branch block) No date: Malignant neoplasm (HCC) Comment: stomach cancer No date: Sleep apnea Comment: no longer using CPAP since weight loss and not snoring any more Past Surgical History: 1961: APPENDECTOMY 1974: CHOLECYSTECTOMY No date: INCISIONAL HERNIA REPAIR Comment: at [facility] site repaired x 5 05/14/2018: Laparoscopic 3 field esophagectomy Comment: [facility] Dr Vicente and Dr Pal 12/13/2017: LAPAROSCOPIC PLACEMENT OF JEJUNOSTOMY FEEDING * No date: VASECTOMY Allergies: Allergies Allergen Reactions Codeine Unknown Current Outpatient Prescriptions Medication Sig docusate sodium 60 mg/15 mL oral syrup 12.5 mL by feeding tube route twice daily as nee ded (constipation). Hold for loose stool DULoxetine 30 mg oral capsule,delayed release(DR/EC) 30 [...] by mouth once daily in the evening. metoclopramide HCl 5 mg oral tablet 1 tablet by feeding tube route every six hours. For esophageal motility. Take for a total of 90 days. cbbqaibscrzi-kbcv-urzhjkws (CEROVITE) oral liquid 15 mL by feeding tube route once quan y. Take for 1 month, then can take OTC multivitamins omeprazole 2 mg/mL oral suspension (compound) Take 20 mL by feeding tube route once nallely ly. Take liquid for 1 month, then can resume capsules. Will take this medication for life. ondansetron 4 mg oral tablet 1 tablet by feeding tube route every eight hours as needed for nausea/vomiting. Dissolve in water (takes ~5 min) then administer per tube. propranolol 60 mg oral tablet Take 0.5 tablets by mouth two times daily. simethicone (GAS-X ORAL) Take by mouth. tamsulosin HCl (FLOMAX ORAL) Take by mouth. No current facility-administered medications for this visit. Social History: Patient is , accompanied to clinic today by his and a close friend. They live in [facility] but close friend here. History Smoking Status Former Smoker Quit date: 12/15/1989 Smokeless Tobacco Former User Types: Chew Quit date: 01/17/2018 History Alcohol Use 0.6 oz/week 1 Glasses of wine per week Family History: Family History Problem Relation No Known Problems Mother No Known Problems Father Review of Systems (see new patient form for additional documentation): Full 10 systems reviewed, see scanned document Physical Examination: BP 134/86 | Pulse 96 | Temp (Src) 36.6 C (97.9 F) (Oral) | RR 16 | Ht 1.727 m (5' 8") | Wt 66.2 kg (146 lb) | SpO2 99% | BMI 22.2 kg/(m^2) ECOG PS: 1 Gen: Well-developed, well-nourished, ambulatory, in no distress Skin: No significant rash or ecchymoses HEENT: Extraocular movements are intact, oropharynx is clear with no exudates or erythema. No scleral icterus. Neck: Supple, no thyromegaly Nodes: No pathologically enlarged nodes in the bilateral cervical, supraclavicular, axill puja areas Chest: Clear to auscultation and percussion bilaterally, no rales, wheezes or rhonchi CV: Regular rate and rhythm, no murmurs or rubs Abd: Soft, non-tender, non-distended, normal bowel sounds, no hepatosplenomegaly, small gr anulation tissue at site of prior J tube, fleshy Extr: No edema, calf pain Back: No pain to percussion along the axial spine. Neuro: Cranial nerves intact, motor grossly nonfocal Labs: Outside labs reviewed Lab Results Component Value Date NA 141 05/22/2018 K 4.3 05/22/2018 CL 108 05/22/2018 BICARB 26 05/22/2018 BUN 22 05/22/2018 CR 0.52 05/22/2018 GLU 105 05/22/2018 CA 8.2 05/22/2018 AST 28 04/30/2018 ALT 29 04/30/2018 AP 102 04/30/2018 TBILI 0.6 04/30/2018 TP 7.1 04/30/2018 ALB 2.4 05/22/2018 ANIONGAP 7 05/22/2018 ANIONALBCOR 11 05/22/2018 Lab Results Component Value Date WBC 8.29 05/18/2018 HB 8.9 05/18/2018 HCT 25.7 05/18/2018 PLT 154 05/18/2018 MCV 98.1 05/18/2018 RDW 47.6 05/18/2018 Imaging: Outside PET and CT were personally reviewed, agree with report The patient and family have indicated that all questions and concerns have been addressed t o their satisfaction. Marie Liz MD Clinical destination coordinator Medical Oncology and Hematology documented in this enco unter Plan of Treatment Not on filedocumented as of this encounter Procedures + +--------+ + + + | Procedure Name | Priori | Date/Time | Associated Diagnosis | Comments | | | ty | | | | + +--------+ + + + | ONCOLOGY PATHWAYS | Routin | 08/12/2018 | | Results for this | | TREATMENT DECISION | e | | | procedure are in the | | | | | | results section. | + +--------+ + + + documented in this encounter Results ONCOLOGY PATHWAYS TREATMENT DECISION (08/12/2018) + + + + + + | Component | Value | Ref Range | Performed | Pathologist | | | | | At | Signature | + + + + + + | ONCOLOGY | START ON PATHWAY REGIMEN | | [facility] | | | PATHWAYS | - Gastroesophageal - | | ONCOLOGY | | | TREATMENT | Other Trial - bms 577 | | PATHWAYS | | | PLAN | | | | | | REGIMEN | | | | | + + + + + + | ONCOLOGY | START ON PATHWAY REGIMEN | | VIA | | | PATHWAYS | - Gastroesophageal | | ONCOLOGY | | | TREATMENT | Other Clinical Trial: | | [facility]WAYS | | | DECISION | bms 577 Patient | | | | | DETAILS | Characteristics:Esophage | | | | | | al & GE Junction, | | | | | | Adenocarcinoma, | | | | | | Post-Neoadjuvant Therapy | | | | | | (Neoadjuvant Pathologic | | | | | | Staging), Adjuvant | | | | | | Therapy (Received | | | | | | Neoadjuvant | | | | | | Therapy)Histology: | | | | | | AdenocarcinomaDisease | | | | | | Classification: GE | | | | | | JunctionTherapeutic | | | | | | Status: Post-Neoadjuvant | | | | | | Therapy and Resection | | | | | | (Neoadjuvant Pathologic | | | | | | Staging)AJCC N Category: | | | | | | [id number] M Category: | | | | | | [id number] 8 Stage | | | | | | Grouping: IIIBAJCC | | | | | | Grade: GXAJCC T | | | | | | Category: [id number] of | | | | | | Therapy:Curative Intent, | | | | | | Discussed with Patient | | | | + + + + + + + + | Specimen | + + | | + + + +---------+ + + | Performing | Address | City/State/Zipcode | Phone Number | | Organization | | | | + +---------+ + + | [facility] | | | | | [facility] | | | | + +---------+ + + documented in this encounter Visit Diagnoses + + | Diagnosis | + + | Malignant neoplasm of lower third of esophagus (HCC) - Primary Malignant neoplasm of | | lower third of esophagus | + + documented in this encounter
--- OUTSIDE RECORDS SUMMARY | ~2019-11-23 | XMS | Encounter Summary ---
Demographics + + + | Address | [address] | | | [place] [address] | + + + | Home Phone [...] Team Providers + +------+ + | Care Round Boner Name | Role | Phone | + +------+ + | Christos Olivarez MD | PCP | | + +------+ + Encounter Details +--------+ + + + + | Date | Type | Department | Care Team | Description | +--------+ + + + + | 08/08/ | [facility] Outcomes | Hematology | Rebecca Booth | Malignant neoplasm | | 2019 | | Oncology Study [address] | [address] | of lower third of | | | | [address] | [place], | esophagus (HCC) | | | | Mailcode: [facility] | [place] [address] | (Primary Dx) | | | | [facility] | | | | | | and [address]ika, | | | | | | [facility] [address] | | | | | | [place], [place] | | | | | | [address] | | | | | | [phone] | | | +--------+ + + + [...] | + + + + + | [facility] | [address] | [place] [address] | | | SERVICES, CORE | ASHLEY [...] [facility] | [address] | [place] [address] | | | SERVICES, CORE | ASHLEY [...] | + + + + + | [employer] | [address] | [place] [address] | | | SERVICES, CORE | [address] [...] [facility] | [address] | [place] [address] | | | SERVICES, CORE | [address] | | | + + + + + documented in this encounter Visit Diagnoses + + | Diagnosis | + + | 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
--- OUTSIDE RECORDS SUMMARY | ~2019-11-23 | XMS | Encounter Summary ---
Demographics + + + | Address | [address] | | | [place] [address] | + + + | Home Phone [...] Team Providers + +------+ + | Care Lunchroom Food Service Supervisor Name | Role | Phone | + +------+ + | Christos Olivarez MD | PCP | | + +------+ + Encounter Details +--------+ + + + + | Date | Type | Department | Care Team | Description | +--------+ + + + + | 06/16/ | Community Engagement Manager | Hematology/Medical | Krunal Godoy, | | | 2019 | | Oncology at [place] | ,PhD [address] | | | | | for Health & Healing | [place], [place] | | | | | [address] [facility] | [address] | | | | | Mailcode: [place] | [phone] | | | | | for Health and | | | | | | [facility], [facility] 2 | | | | | | [place], [place] | | | | | | [address] | | | | | | [phone] | | | +--------+ + + + [...]
--- OUTSIDE RECORDS SUMMARY | ~2019-11-23 | XMS | Encounter Summary ---
Demographics + + + | Address | [address] | | | [place] [address] | + + + | Home Phone [...] Team Providers + +------+ + | Care Occupational Therapy Teacher Name | Role | Phone | [...] | | | | | Procedures | [place], [place] | Health and | | | | | [place] | [address] | Healing, | | | | | SERVICES | Phone: | [address] | | | | | PROVIDED | [phone] | [place], [place] | | | | | PART OF [place] | Fax: | [address] | | | | | [place] | [phone] | Phone: | | | | | [address] | | [phone] | | | | | MG Study | | Fax: | | | | | IRB: [id number] | | [phone] | | | | | Study Title: [...] | 2019 | Encounter | Oncology at [facility] | [address] [place], | | | | | [address] | [place] [address] | | | | | Mailcode: Center | | | | | | for Health and | | | | | | [facility] [address] | | | | | | [place], [place] | | | | | | [address] | | | | | | [phone] | | | +--------+ + + + [...] | | | | | ALERT MEDICATION IRB:[id number], | | | | | | | Protocol:[id number], Infuse using | | | | | | | 0.2 micron filter., | | | | | | + +---------+ +--------+-------+------+ +---+---+ | | | +---+---+ documented in this encounter"
--- OUTSIDE RECORDS SUMMARY | ~2019-11-23 | XMS | Encounter Summary ---
Demographics + + + | Address | [address] | | | [place] [address] | + + + | Home Phone [...] Team Providers + +------+ + | Care Bilingual Patient Support Caseworker Name | Role | Phone | + [...] | +--------+ + + + + | 11/21/ | Telephone | Hematology/Medical | Marie Liz, | Research Study | | 2018 | | Oncology at [place] | [address] | | | | | for Health & Healing | [address] | | | | | [address] | [place] [address] | | | | | Mailcode: [place] | [phone] | | | | | for [facility] and | | | | | | Healing, [facility] [address] | | | | | | [place], [place] | | | | | | [address] | | | | | | [phone] | | | +--------+ + + + [...]
--- OUTSIDE RECORDS SUMMARY | ~2019-11-23 | XMS | Encounter Summary ---
Demographics + + + | Address | [address] | | | [place] [address] | + + + | Home Phone [...] Providers + +------+ + | Care Legal Internship Name | Role | Phone | + +------+ + | Christos Olivarez MD | PCP | | + +------+ + Reason for Visit + + + | Reason | Comments | + + + | Immunotherapy | Nivolumab/Placebo | + + + Other (Routine) [...] | | | | lower third | [address] | Mailcode: | | | | | of esophagus | [address] | Center for | | | | | Procedures | [place], [place] | Health and | | | | | [place] | [address] | Healing, | | | | | SERVICES | Phone: | Building [address] | | | | | PROVIDED | [phone] | [place], [place] | | | | | PART OF [place] | Fax: | [address] | | | | | INJ | [phone] | Phone: | | | | | NIVOLUMAB 1 | | [phone] | | | | | MG Study | | Fax: | | | | | IRB: [id number] | | [phone] | | | | | Study Title: [...] + + | 02/17/ | Hospital | Hematology/Medical | A, [address] | | | 2019 | Encounter | Oncology at [facility] | Dominick French [place], | | | | | [address] | [place] [address] | | | | | Mailcode: Center | | | | | | for Health and | | | | | | [facility] 2 | | | | | | [place], [place] | | | | | | [address] | | | | | | [phone] | | | +--------+ + + + [...] + + + | Blood Pressure | 136/91 | 02/17/2019 11:40 AM | | | | | PDT | | + + + + + | Pulse | 62 | 02/17/2019 11:40 AM | | | | | PDT | | + + + + + | Temperature | 36.6 C (97.9 F) | 02/17/2019 11:40 AM | | | | | PDT | | + + + + + | Respiratory Rate | 16 | 02/17/2019 11:40 AM | | | | | PDT | | + + + + + | Oxygen Saturation | 99% | 02/17/2019 11:40 AM | | | | | PDT | | + + + + + | Inhaled Oxygen | - | - | | | Concentration | | | | + + + + + | Weight | 75.3 kg (166 lb) | 02/17/2019 11:40 AM | | | | | PDT | | + + + + + | Height | - | - | | + + + + + | Body Mass Index | 25.24 | 12/24/2018 9:35 AM | | | [...] documented as of this encounter Progress Notes Carri Farley RN - 02/17/2019 12:19 PM PDTChemotherapy Nurse Note Name: Jacob Sapp Date: 02/17/2019 Physician: Walt Allergies: Jacob is allergic to codeine. Diagnosis: Esophageal Ca Significant Other: Nursing Assessment: Fever: no; Diarrhea:No Constipation: No SOB / Cough: no; Rash: no Edema: no; Mucositis: no; Urinary: no; Neuropathy: no; S/S Bleeding: no; Severity (1=Not at all, 2=A little, 3=Quite a bit, 4=Very much) Nausea and/or Vomitin Pt report experiencing slight nausea and fatigue for about 5 days after each treatment. Pt takes compazine prn with good control. Fatigue: 1 Fatigue for first 5 days after each treatment. Pain: 0 Location: denies Duration: denies Narrative: Patient here for Nivolumab/Placebo. PIV placed by starter nurse. Positive blood return on IV line prior and after infusion. Med ication infused with 250ml NS sidearm bag. Pt tolerated without incident. PIV d/c'd and i ntact. Pt Alert & Oriented x3 and discharged ambulatory. Refer to MAR and Onc Lines and Transfusions doc flowsheet for treatment details. documented in this enco unter Plan of Treatment Not on filedocumented as of this encounter Procedures + +--------+ + + + | Procedure Name | Priori | Date/Time | Associated Diagnosis | Comments | | | ty | | | | + +--------+ + + + | TSH W/REFLEX TO FREE | Routin | 02/17/2019 | Malignant neoplasm | Results for this | | T4(IF ABNORMAL) | e | 11:03 AM | of lower third of | procedure are in the | | | | PDT | esophagus (HCC) | results section. | | | | | Fatigue, unspecified | | | | | | type | | + +--------+ + + + | FREE T4 | Routin | 02/17/2019 | Malignant neoplasm | Results for this | | | e | 11:03 AM | of lower third of | procedure are in the | | | | PDT | esophagus (HCC) | results section. | | | | | Fatigue, unspecified | | | | | | type | | + +--------+ + + + documented in this encounter Results FREE T4 (02/17/2019 11:03 AM PDT) + +---------+ + + + | Component | Value | Ref Range | Performed | Pathologist | | | | | At | Signature | + +---------+ + + + | FREE T4 | 0.4 (L) | 0.6 - 1.2 ng/dL | [facility] [...] | + + + + + | [facility] | [address] | [place] [address] | | | SERVICES, CORE | [address] | | | + + + + + TSH W/REFLEX TO FREE T4(IF ABNORMAL) (02/17/2019 11:03 AM PDT) + + + + + + | Component | Value | Ref Range | Performed | Pathologist | | | | | At | Signature | + + + + + + | TSH | 24.50 (H) | 0.46 - 5.56 | [facility] | [address] | [place] [address] | | | SERVICES, CORE | [address] | | | + + + + + documented in this encounter Visit Diagnoses + + | Diagnosis | + + | Malignant neoplasm of lower third of esophagus (HCC) - Primary Malignant neoplasm of | | lower third of esophagus | + + | Fatigue, unspecified type | + + documented in this encounter Administered Medications + +---------+ +--------+-------+------+ | Medication Order | MAR | Action | Dose | Rate | Site | | | Action | Date | | | | + +---------+ +--------+-------+------+ | INV nivolumab/placebo 480 mg in | New Bag | 02/18/20 | 480 mg | 120 | | | INV NaCl 0.9% IV 480 mg, | | 19 1:50 | | mL/hr | | | intravenous, Administer over 30 | | PM PDT | | | | | Minutes, ONCE, 1 dose, Mon | | | | | | | 02/17/19 at 1300, Pt ID: [id number]. | | | | | | | Administer using a 0.2 micron | | | | | | | filter. Flush line with 15-20 mL | | | | | | | of normal saline. For | | | | | | | investigational use only, HIGH | | | | | | | ALERT MEDICATION IRB:[id number], | | | | | | | Protocol:[id number], Infuse using | | | | | | | 0.2 micron filter., | | | | | | + +---------+ +--------+-------+------+ +---+---+ | | | +---+---+ documented in this encounter"
--- OUTSIDE RECORDS SUMMARY | ~2019-11-23 | XMS | Encounter Summary ---
Demographics + + + | Address | [address] | | | [place] [address] | + + + | Home Phone [...] Team Providers + +------+ + | Care Inspector Hairspring Name | Role | Phone | + [...] | +--------+ + + + + | 12/10/ | Hospital | Hematology/Medical | Rn, Fast Track | | | 2019 | Encounter | Oncology at [facility] | [address] | | | | | [address] | [place] [address] | | | | | Mailcode: [place] | | | | | | for Health and | | | | | | Healing, [place] [address] | | | | | | [place], [place] | | | | | | [address] | | | | | | [phone] | | | +--------+ + + + [...] as of this encounter Progress Notes Ad Villalobos - 12/10/2018 1:16 PM PSTCBC and CMP were drawn via PIV right AC, resulted v ia POC and reviewed. and LDH, amylase and lipase was drawn via PIV and sent to lab. Pt matthew ated without incident. Pt discharged to provider visit. documented in this encount er Plan of Treatment Not on filedocumented as of this encounter Procedures + +--------+ + + + | Procedure Name | Priori | Date/Time | Associated Diagnosis | Comments | | | ty | | | | + +--------+ + + + | COMPLETE METABOLIC | Routin | 12/10/2018 | Malignant neoplasm | | | PANEL - OLP | e | 1:56 PM | of lower third of | | | | | PST | esophagus (HCC) | | + +--------+ + + + | CMP, POC (BMP+LFT) | Routin | 12/10/2018 | Malignant neoplasm | Results for this | | | e | 1:56 PM | of lower third of | procedure are in the | | | | PST | esophagus (HCC) | results section. | + +--------+ + + + | CBC WITH AUTO DIFF - | Routin | 12/10/2018 | Malignant neoplasm | | | OLP | e | 1:54 PM | of lower third of | | | | | PST | esophagus (HCC) | | + +--------+ + + + | CBC+DIFF,POC | Routin | 12/10/2018 | Malignant neoplasm | Results for this | | | e | 1:54 PM | of lower third of | procedure are in the | | | | PST | esophagus (HCC) | results section. | + +--------+ + + + | LIPASE, PLASMA | Routin | 12/10/2018 | Malignant neoplasm | Results for this | | | e | 1:22 PM | of esophagus, | procedure are in the | | | | PST | unspecified location | results section. | | | | | (HCC) | | + +--------+ + + + | LDH TOTAL, PLASMA | Routin | 12/10/2018 | Malignant neoplasm | Results for this | | | e | 1:22 PM | of esophagus, | procedure are in the | | | | PST | unspecified location | results section. | | | | | (HCC) | | + +--------+ + + + | AMYLASE, PLASMA | Routin | 12/10/2018 | Malignant neoplasm | Results for this | | | e | 1:22 PM | of esophagus, | procedure are in the | | | | PST | unspecified location | results section. | | | | | (HCC) | | + +--------+ + + + documented in this encounter Results CMP, POC (BMP+LFT) (12/10/2018 1:56 PM PST) + +---------+ + + + | Component | Value | Ref Range | Performed | Pathologist | | | | | At | Signature | + +---------+ + + + | SODIUM, POC | 137 | 134 - 143 | [facility] | | | | | mmol/L | POINT OF | | | | | | CARE TESTS | | + +---------+ + + + | POTASSIUM, | 3.8 | 3.4 - 5.0 | [facility] [...] +---------+ + + + | CALCIUM | 9.2 | 8.6 - 10.2 | [facility], | | | TOTAL, POC | | mg/dL | POINT OF | | | | | | CARE TESTS | | + +---------+ + + + | BUN, POC | 8 | 6 - 20 mg/dL | [facility], | | | | | | POINT OF | | | | | | CARE TESTS | | + +---------+ + + + | CREATININE, | 1.0 | 0.7 - 1.3 mg/dL | [facility], | | | POC | | | POINT OF | | | | | | CARE TESTS | | + +---------+ + + + | ALK PHOS, | 85 | 43 - 92 U/L | [facility], | | | CMP POC | | | POINT OF | | | | | | CARE TESTS | | + +---------+ + + + | ALT, CMP | 98 (H) | 0 - 60 U/L | [facility], | | | POC | | | POINT OF | | | | | | CARE TESTS | | + +---------+ + + + | AST, CMP | 100 (H) | 0 - 41 U/L | [facility] | | | POC | | | POINT OF | | | | | | CARE TESTS | | + +---------+ + + + | BILIRUBIN | 0.8 | 0.3 - 1.2 mg/dL | [facility] [...] +---------+ + + + | PROTEIN | 6.5 | 6.4 - 8.2 g/dL | [facility], | | [...] + + | [facility] | [address] | [place] [address] | | | OF CARE TESTS | | | | + + + + + CBC+DIFF,POC (12/10/2018 1:54 PM PST) + + + + + + | Component | Value | Ref Range | Performed | Pathologist | | | | | At | Signature | + + + + + + | WBC POC | 3.3 (L) | 3.5 - 10.8 | [facility] [...] + + + | HCT POC | 30.1 (L) | 41.0 - 53.0 % | [facility] | | | | | | POINT OF | | | | | | CARE TESTS | | + + + + + + | MCV POC | 99.3 | 80.0 - 100 fL | [facility] [...] + + + | MCHC POC | 34.6 | 32.0 - 36.0 | [facility], | | | | | g/dL | POINT OF | | | | | | CARE TESTS | | + + + + + + | RDW SD, POC | 46.8 (H) | 35.1 - 46.3 fL | [facility], | | | | | | POINT OF | | | | | | CARE TESTS | | + + + + + + | PLT POC | 165 | 150 - 400 | [facility], | | | | | 10*3/uL | POINT OF | | | | | | CARE TESTS | | + + + + + + | MPV POC | 8.6 (L) | 9.7 - 12.3 fL | [facility] | | | | | | POINT OF | | | | | | CARE TESTS | | + + + + + + | NEUTROPHIL% | 52.4 | 50.0 - 70.0 % | [facility] | | | POC | | | POINT OF | | | | | | CARE TESTS | | + + + + + + | LYMPH% POC | 28.4 | 18 - 42 % | [facility] [...] + + | EOS %, POC | 5.5 (H) | 1.0 - 3.0 % | [facility] | | | | | | POINT OF | | | | | | CARE TESTS | | + + + + + + | BASO %, POC | 1.2 | 0.0 - 2.0 % | [facility] | | | | | | POINT OF | | | | | | CARE TESTS | | + + + + + + | NEUTROPHIL# | 1.7 (L) | 1.8 - 7.7 | [facility] [...] + + + + | [facility] | [address] | [place] [address] | | | OF CARE TESTS | | | | + + + + + LIPASE, PLASMA (12/10/2018 1:22 PM PST) + [...] | + + + + + | [facility] | [address] | [place] [address] | | | SERVICES, CORE | [address] [...] [facility] | [address] | [place] [address] | | | SERVICES, CORE | PARK [...] + + + | [facility] sho[facility] | [address] | [place] [address] | | | SERVICES, CORE | [address] | | | + + + + + documented in this encounter Visit Diagnoses + + | Diagnosis | + + | Malignant neoplasm of esophagus, unspecified location (HCC) | + + | Malignant neoplasm of lower third of esophagus (HCC) Malignant neoplasm of lower | | third of esophagus | + + documented in this encounter"
--- OUTSIDE RECORDS SUMMARY | ~2019-11-23 | XMS | Encounter Summary ---
Demographics + + + | Address | [address] | | | [place] [address] | + + + | Home Phone [...] Team Providers + +------+ + | Care Pulp Operator Name | Role | Phone | + +------+ + | Christos Olivarez MD | PCP | | + +------+ + Encounter Details +--------+ + + + + | Date | Type | Department | Care Team | Description | +--------+ + + + + | 01/16/ | Manual Control Auger Press Operator | Hematology | Krunal Godoy, | | | 2019 | | Oncology Study [address] | ,PhD [address] | | | | | [address] | [place], [place] | | | | | Mailcode: [facility] | [address] | | | | | [facility] | [phone] | | | | | and Healing, | | | | | | [facility] | | | | | | Floor [place], [place] | | | | | | [address] | | | | | | [phone] | | | +--------+ + + + [...]
--- OUTSIDE RECORDS SUMMARY | ~2019-11-23 | XMS | Encounter Summary ---
Demographics + + + | Address | [address] | | | [place] [address] | + + + | Home Phone [...] Team Providers + +------+ + | Care Cementing Machine Operator Name | Role | Phone [...] Description | +--------+---------+ + + + | 01/17/ | Office | Radiation Oncology | Daniel Barrera, | Encounter for | | 2018 | Visit | at [facility] [address] | [address] | radiotherapy | | | | [address] | [address] | (Primary Dx) | | | | 8C/[id number] [facility] | [place], [place] | | | | | [facility], | [address] | | | | | [place] [address] | [phone] | | | | | [phone] | | | +--------+---------+ + + + [...] + + + | Blood Pressure | 101/68 | 01/17/2018 1:47 PM | | | | | PST | | + + + + + | Pulse | 80 | 01/17/2018 1:47 PM | | | | | PST | | + + + + + | Temperature | 37.1 C (98.7 F) | 01/17/2018 1:47 PM | | | | | PST | | + + + + + | Respiratory Rate | 14 | 01/17/2018 1:47 PM | | | | | PST | | + + + + + | Oxygen Saturation | 100% | 01/17/2018 1:47 PM | | | | | PST | | + + + + + | Inhaled Oxygen | - | - | | | Concentration | | | | + + + + + | Weight | 89.1 kg (196 lb 6.4 | 01/17/2018 1:47 PM | | | | oz) | PST | | + + + + + | Height | - | - | | + + + + + | Body Mass Index | 29.86 | 12/06/2017 10:48 AM | | | | | PST | | + + + + + documented in this encounter Progress Notes Daniel Barrera MD - 01/17/2018 3:30 PM PSTI saw and evaluated Mr. Sapp with Dr. Lopez and agree with her assessment and plan. DANIEL BARRERA MD Dept of Radiation Medicine [facility] Early ony Lopez - 01/17/2018 3:30 PM PST Radiation Oncology - On Treatment Visit Note ID: [id number] y.o. male with [id number] esophageal adenocarcinoma (7 LN) 36-44cm from the [...] Total RT Dose: 50 Gy. Current Fraction: 16 of 25. Concurrent Chemotherapy: carbo/taxol SUBJECTIVE: He is feeling ok. The viscous lidocaine was upsetting his stomach. He has tried Tylenol. He has hydrocodone for pain also. It is getting harder to drink by mouth due to esophagiti s. He has not been losing weight. OBJECTIVE: Vital Signs: BP 101/68 | Pulse 80 | Temp 37.1 C (98.7 F) | RR 14 | Wt 89.1 kg (196 lb 6 .4 oz) | SpO2 100% | BMI 29.86 kg/(m^2) Pain Score: 0 Wt Readings from Last 3 Encounters: 01/17/18 89.1 kg (196 lb 6.4 oz) 01/08/18 90.7 kg (200 lb) 01/03/18 92.1 kg (203 lb) Jacob Sapp's mode of transportation is ambulatory. Skin: no erythema. ASSESSMENT/PLAN: Our Miles has been down so he has not been able to get treated the last 2 days. He did get chemo on Sun. We will add on treatments to the end to make up for the last 2 days. Per the patient, oncology will give chemo an extra week if needed. Avoid taking Tylenol with the Hydrocodone. Can try Ibuprofen instead. Keep up your nutrit ion and hydration The patient's chart and films were reviewed. Cont RT. CONY LOPEZ Dept of Radiation Medicine [facility] April Stacy MA - 1:41 PM PST Nursing Note Patient here for an On Treatment Visit. Completed 16 fractions of a planned 25. Current dose 3200 cGy of total 5000 cGy. Vitals/Pain Level: BP 101/68 | Pulse 80 | Temp 37.1 C (98.7 F) | RR 14 | Wt 89.1 kg (19 6 lb 6.4 oz) | SpO2 100% | BMI 29.86 kg/(m^2) Pain Score: Wt Readings from Last 3 Encounters: 01/17/18 89.1 kg (196 lb 6.4 oz) 01/08/18 90.7 kg (200 lb) 01/03/18 92.1 kg (203 lb) No results for input(s): WBC, HB, HCT, PLT, BUN, CR, NA, K, MG in the last 720 hours. Patient states no other issues or concerns. Electronically signed by April Mata MA at 0 01/22/2018 12:38 PM PSTdocumented in this encounter Plan of Treatment Not on filedocumented as of this encounter Visit Diagnoses + + | Diagnosis | + + | Encounter for radiotherapy - Primary Radiotherapy | + + documented in this encounter"
--- OUTSIDE RECORDS SUMMARY | ~2019-11-23 | XMS | Encounter Summary ---
Demographics + + + | Address | [address] | | | [place] [address] | + + + | Home Phone [...] Team Providers + +------+ + | Care Upholsterer Helper Name | Role | Phone | [...] | | | | | Procedures | [place], [place] | Health and | | | | | [place] | [address] | Healing, | | | | | SERVICES | Phone: | [address] | | | | | PROVIDED | [phone] | [place], [place] | | | | | PART OF [place] | Fax: | [address] | | | | | INJ | [phone] | Phone: | | | | | [address] | | [phone] | | | | | MG Study | | Fax: | | | | | IRB: [id number] | | [phone] | | | | | Study Title: [...] | 2019 | Encounter | Oncology at [facility] | [address] [place], | | | | | [address] | [place] [address] | | | | | Mailcode: [place] | | | | | | for Health and | | | | | | [facility] 2 | | | | | | [place], [place] | | | | | | [address] | | | | | | [phone] | | | +--------+ + + + [...]
--- OUTSIDE RECORDS SUMMARY | ~2019-11-23 | XMS | Encounter Summary ---
Demographics + + + | Address | [address] | | | [place] [address] | + + + | Home Phone [...] Team Providers + +------+ + | Care Transit Operator Name | Role | Phone | + +------+ + | Christos Olivarez MD | PCP | | + +------+ + Encounter Details +--------+ + + + + | Date | Type | Department | Care Team | Description | +--------+ + + + + | 11/11/ | Bricklayer | Hematology | Marie Liz, | | | 2018 | | Oncology Study [address] | [address] | | | | | [facility] [facility] | [address] [facility] [address] | | | | | Mailcode: CH7M | [place] [address] | | | | | [facility] | [phone] | | | | | and [place], | | | | | | Building | | | | | | [place], [place] | | | | | | [address] | | | | | | [phone] | | | +--------+ + + + [...]
--- OUTSIDE RECORDS SUMMARY | ~2019-11-23 | XMS | Encounter Summary ---
Demographics + + + | Address | [address] | | | [place] [address] | + + + | Home Phone [...] Team Providers + +------+ + | Care Sewing Machine Assembler Name | Role | Phone | [...] | | | | lower third | [address] | Mailcode: | | | | | of esophagus | [address] | Center for | | | | | Procedures | [place], [place] | Health and | | | | | [place] | [address] | Healing, | | | | | SERVICES | Phone: | Building [address] | | | | | PROVIDED | [phone] | [place], [place] | | | | | PART OF [place] | Fax: | [address] | | | | | INJ | [phone] | Phone: | | | | | [address] | | [phone] | | | | | MG [place] EST | | Fax: | | | | | PATIENT | | [phone] | | | | | LEVEL V | | | | | | | Study IRB: | | | | | | | [id number] Study | | | | | | [...] | 2019 | Visit | Oncology at [place] | ,PhD [address] | of lower third of | | | | for Health & Healing | [address] [place], [place] | esophagus (HCC) | | | | [address] | [address] | (Primary Dx); | | | | Mailcode: [place] | [phone] | Clinical trial exam; | | | | for Health and | | Nausea; Fatigue, | | | | Healing, Building 2 | | unspecified type; | | | | [place], [place] | | Encounter for | | | | [address] | | antineoplastic | | | | [phone] | | immunotherapy; | | | | [...] no response, score 3) - 07/31/2018 [facility] Medical oncology evaluation- offered enrollment [...] ABDOMEN AND PELVIS W IV CONTRAST Order: [id number] Performed: 05/20/2019 09:49 Status: Final result Visible [...] potential biopsy. Research Note Study #: [id number] Patient Name: Jacob Sapp Patient Medical/Surgical History Date Cervical spinal stenosis 1997 Coronary artery disease - diagnosed on angiogram when experienced chest pain - treated with medications, pain attributed to esophageal spasm, never had GA or stent 2007 H/O Diverticulosis 1997 Hernia, [...]
--- OUTSIDE RECORDS SUMMARY | ~2019-11-23 | XMS | Encounter Summary ---
Demographics + + + | Address | [address] | | | [place] [address] | + + + | Home Phone [...] Team Providers + +------+ + | Care Utility Maintenance Worker Name | Role | Phone | [...] | | | neoplasm of | ,PhD [address] | | | | | | lower third | [address] | | | | | | of esophagus | [facility], | | | | | | (HCC) | [place] | | | | | | Procedures | [address] | | | | | | CT CHEST, | Phone: | | | | | | ABDOMEN AND | [phone] | | | | | | PELVIS W IV | Fax: | | | | | | CONTRAST | [phone] | | + +--------+ + + + [...] | | | | of esophagus | [facility], | | | | | | (HCC) | [place] | | | | | | Procedures | [address] | | | | | | CT CHEST, | Phone: | | | | | | ABDOMEN AND | [phone] | | | | | | PELVIS W IV | Fax: | | | | | | CONTRAST | [phone] | | + +--------+ + + + + Encounter Details +--------+ + + + + | Date | Type | Department | Care Team | Description | +--------+ + + + + | 05/20/ | Hospital | Radiology/Imaging | Krunal Godoy, | | | 2019 | Encounter | Lab at [facility] [address] | ,PhD [address] | | | | | [address] Mailcode: | [place], [place] | | | | | [facility] | [address] | | | | | Health and Healing, | [phone] | | | | | [address] | | | | | | [place], [place] | | | | | | [address] | | | | | | [phone] | | | +--------+ + + + [...] | CT CHEST, ABDOMEN | Routin | 05/20/2019 | Malignant neoplasm | Results for this | | AND PELVIS W IV | e | 9:49 AM | of lower third of | [...] (OMNIPAQUE) 350 mg | IV Push | 05/20/20 | 100 mL | | | | iodine/mL injection 100 mL 100 | | 19 9:47 | | | | | mL, intravenous, ONCE, 1 dose, | | AM PDT | | | | | 05/20/19 at 1030 | | | | | | + +---------+ +--------+------+------+ +---+---+ | | | +---+---+ documented in this encounter"
--- OUTSIDE RECORDS SUMMARY | ~2019-11-23 | XMS | Encounter Summary ---
Demographics + + + | Address | [address] | | | [place] [address] | + + + | Home Phone [...] Team Providers + +------+ + | Care Tool Maker Apprentice Name | Role | Phone | + [...]
--- OUTSIDE RECORDS SUMMARY | ~2019-11-23 | XMS | Encounter Summary ---
Demographics + + + | Address | [address] | | | [place] [address] | + + + | Home Phone [...] Team Providers + +------+ + | Care Buffet Server Name | Role | Phone | + +------+ + | Christos Olivarez MD | PCP | | + +------+ + Reason for Visit + + + | Reason | Comments | + + + | Infusion | INV Nivolumab/ Placebo | + + + Other (Routine) +--------+---------+ [...] neoplasm of | [address] | | | | | lower third | [address] | Mailcode: | | | | | of esophagus | [address] | Center for | | | | | Procedures | [place], [place] | Health and | | | | | [place] | [address] | Healing, | | | | | SERVICES | Phone: | Building [address] | | | | | PROVIDED | [phone] | [place], [place] | | | | | PART OF [place] | Fax: | [address] | | | | | INJ | [phone] | Phone: | | | | | NIVOLUMAB 1 | | [phone] | | | | | MG Study | | Fax: | | | | | IRB: [id number] | | [phone] | | | | | Study Title: [...] + + | 01/22/ | Hospital | Hematology/Medical | A, [address] | | | 2019 | Encounter | [facility] | [address] [place], | | | | | [address] | [place] [address] | | | | | Mailcode: Center | | | | | | for Health and | | | | | | [facility] 2 | | | | | | [place], [place] | | | | | | [address] | | | | | | [phone] | | | +--------+ + + + [...] Temperature | 36.5 C (97.7 F) | 01/22/2019 1:11 PM | | | | | PST [...] | 70.2 kg (154 lb 12.8 | 01/22/2019 1:11 PM | with shoes off | | | oz) | PST | | + + + + + | Height | - | - | | + + + + + | Body Mass Index | 23.54 | 12/24/2018 9:35 AM | | | [...] + documented as of this encounter Progress Daisy Hurst RN - 01/22/2019 12:42 PM PSTChemotherapy Nurse Note Name: Jacob Sapp Date: 01/22/2019 Physician: Walt Allergies: Jacob is allergic to codeine. Diagnosis: stomach ca Significant Other: at chairside Nursing Assessment: Fever: no; Diarrhea:No Constipation: No SOB / Cough: no; Rash: no Edema: no; Mucositis: no; Urinary: no; Neuropathy: no; S/S Bleeding: no; Severity (1=Not at all, 2=A little, 3=Quite a bit, 4=Very much) Nausea and/or Vomitin Fatigue: 1 Pain: stomach intermittently Narrative: Patient here for INV Nivolumab/ Placebo. PIV started in RAC. CBC and CMP were drawn via PIV, resulted via POC and reviewed. Positive blood return on IV line prior and after infusion. Medication infused with 250ml NS sidearm bag. Pt tolerated without incident. PIV d/c'd and intact. Pt Alert & Oriented x3, No ac danielle distress, Mood & affect appropriate and Recent & remote memory intact and discharged ambulatory. Refer to MAR and [...] + + | ADMINISTER | Routin | 01/22/2019 | Malignant neoplasm | | | CHEMOTHERAPY PER | e | 5:49 PM | of lower third of | | | TREATMENT PARAMETERS | | PST | esophagus (HCC) | | + +--------+ + + + | COMPLETE METABOLIC | Routin | 01/22/2019 | Malignant neoplasm | | | PANEL - OLP | e | 1:20 PM | of lower third of | | | | | PST | esophagus (HCC) | | + +--------+ + + + | CMP, POC (BMP+LFT) | Routin | 01/22/2019 | Malignant neoplasm | Results for this | | | e | 1:20 PM | of lower third of | procedure are in the | | | | PST | esophagus (HCC) | results section. | + +--------+ + + + | CBC WITH AUTO DIFF - | Routin | 01/22/2019 | Malignant neoplasm | | | OLP | e | 1:16 PM | of lower third of | | | | | PST | esophagus (HCC) | | + +--------+ + + + | CBC+DIFF,POC | Routin | 01/22/2019 | Malignant neoplasm | Results for this | | | e | 1:16 PM | of lower third of | procedure are in the | | | | PST | esophagus (HCC) | results section. | + +--------+ + + + | TSH W/REFLEX TO FREE | Routin | 01/22/2019 | Malignant neoplasm | Results for this | | T4(IF ABNORMAL) | e | 12:50 PM | of lower third of | procedure are in the | | | | PST | esophagus (HCC) | results section. | + +--------+ + + + | FREE T4 | Routin | 01/22/2019 | Malignant neoplasm | Results for this | | | e | 12:50 PM | of lower third of | procedure are in the | | | | PST | esophagus (HCC) | results section. | + +--------+ + + + | T3 TOTAL, SERUM | Routin | 01/22/2019 | Malignant neoplasm | Results for this | | | e | 12:50 PM | of lower third of | procedure are in the | | | | PST | esophagus (HCC) | results section. | + +--------+ + + + | LIPASE, PLASMA | Routin | 01/22/2019 | Malignant neoplasm | Results for this | | | e | 12:50 PM | of abdominal | procedure are in the | | | | PST | esophagus (HCC) | results section. | + +--------+ + + + | LDH TOTAL, PLASMA | Routin | 01/22/2019 | Malignant neoplasm | Results for this | | | e | 12:50 PM | of abdominal | procedure are in the | | | | PST | esophagus (HCC) | results section. | + +--------+ + + + | AMYLASE, PLASMA | Routin | 01/22/2019 | Malignant neoplasm | Results for this | | | e | 12:50 PM | of abdominal | procedure are in the | | | | PST | esophagus (HCC) | results section. | + +--------+ + + + documented in this encounter Results CMP, POC (BMP+LFT) (01/22/2019 1:20 PM PST) + +---------+ + + + [...] + + + | TOTAL CO2, | 31 (H) | 22 - 28 mmol/L | [...] +---------+ + + + | GLUCOSE, | 136 (H) | 60 - 99 mg/dL | [facility] | | | POC | | | POINT OF | | | | | | CARE TESTS | | + +---------+ + + + | CALCIUM | 9.0 | 8.6 - 10.2 | [facility], | | | TOTAL, POC | | mg/dL | POINT OF | | | | | | CARE TESTS | | + +---------+ + + + | BUN, POC | 9 | 6 - 20 mg/dL [...] + + + | ALK PHOS, | 83 | 43 - 92 U/L | [facility], | | | CMP POC | | | POINT OF | | | | | | CARE TESTS | | + +---------+ + + + | ALT, CMP | 59 | 0 - 60 U/L | [facility] | | | POC | | | POINT OF | | | | | | CARE TESTS | | + +---------+ + + + | AST, CMP | 63 (H) | 0 - 41 U/L | [...] +---------+ + + + | ALBUMIN, | 3.1 (L) | 3.5 - 4.7 g/dL | [facility] | | | CMP POC | | | POINT OF | | | | | | CARE TESTS | | + +---------+ + + + | PROTEIN | 6.2 (L) | 6.4 - 8.2 g/dL | [facility] [...] [facility] POINT | [address] | [place] [address] | | | OF CARE TESTS | | | | + + + + + CBC+DIFF,POC (01/22/2019 1:16 PM PST) + + + + + + | Component | Value | Ref Range | Performed | Pathologist | | | | | At | Signature | + + + + + + | WBC POC | 4.2 | 3.5 - 10.8 | [facility], | | | | | 10*3/uL | POINT OF | | | | | | CARE TESTS | | + + + + + + | RBC POC | 2.86 (L) | 4.50 - 6.00 | [facility], | | | | | 10*6/uL | POINT OF | | | | | | CARE TESTS | | + + + + + + | HGB POC | 9.7 (L) | 13.5 - 17.5 | [facility], | | | | | g/dL | POINT OF | | | | | | CARE TESTS | | + + + + + + | HCT POC | 29.4 (L) | 41.0 - 53.0 % | [facility], | | | | | | POINT OF | | | | | | CARE TESTS | | + + + + + + | MCV POC | 102.8 (H) | 80.0 - 100 fL | [facility], | | | | | | POINT OF | | | | | | CARE TESTS | | + + + + + + | MCH POC | 33.9 | 27.0 - 34.0 pg | [facility], | | | | | | POINT OF | | | | | | CARE TESTS | | + + + + + + | MCHC POC | 33.0 | 32.0 - 36.0 | [facility], | | | | | g/dL | POINT OF | | | | | | CARE TESTS | | + + + + + + | RDW SD, POC | 52.9 (H) | 35.1 - 46.3 fL | [facility], | | | | | | POINT OF | | | | | | CARE TESTS | | + + + + + + | PLT POC | 180 | 150 - 400 | [facility], | | | | | 10*3/uL | POINT OF | | | | | | CARE TESTS | | + + + + + + | MPV POC | 8.1 (L) | 9.7 - 12.3 fL | [facility], | | | | | | POINT OF | | | | | | CARE TESTS | | + + + + + + | NEUTROPHIL% | 58.1 | 50.0 - 70.0 % | [facility], | | | POC | | | POINT OF | | | | | | CARE TESTS | | + + + + + + | LYMPH% POC | 27.2 | 18 - 42 % | [facility], | | | | | | POINT OF | | | | | | CARE TESTS | | + + + + + + | MONO %, POC | 7.7 | 3.5 - 9.0 % | [facility], | | | | | | POINT OF | | | | | | CARE TESTS | | + + + + + + | EOS %, POC | 6.5 (H) | 1.0 - 3.0 % | [facility], | | | | | | POINT OF | | | | | | CARE TESTS | | + + + + + + | BASO %, POC | 0.5 | 0.0 - 2.0 % | [facility], | | | | | | POINT OF | | | | | | CARE TESTS | | + + + + + + | NEUTROPHIL# | 2.4 | 1.8 - 7.7 | [facility], | | | POC | | 10*3/uL | POINT OF | | | | | | CARE TESTS | | + + + + + + | LYMPH# POC | 1.1 | 1.0 - 4.8 | [facility] [...] + + | EOS #, POC | 0.3 | 0.0 - 0.5 | [facility], | | | | | 10*3/uL | POINT OF | | | | | | CARE TESTS | | + + + + + + | BASO #, POC | 0.0 | 0.0 - 0.1 | [facility], | | | | | 10*3/uL | [...] [facility] POINT | [address] | [place] [address] | | | OF CARE TESTS | | | | + + + + + FREE T4 (01/22/2019 12:50 PM PST) + +---------+ + + + | Component | Value | Ref Range | Performed | Pathologist | | | | | At | Signature | + +---------+ + + + | FREE T4 | 0.5 (L) | 0.6 - 1.2 ng/dL | [...] [facility] | [address] | [place] [address] | | | SERVICES, CORE | [address] | | | + + + + + LIPASE, PLASMA (01/22/2019 12:50 PM PST) + [...] | + + + + + | [facility] | [address] | [place] [address] | | | SERVICES, JUSTIN | [address]LEY [...] [facility] | [address] | [place] [address] | | | SERVICES, CORE | ASHLEY [...] | + + + + + | Entrec | [address] | [place] [address] | | | JUSTIN [place] | [address] | | | + + + + + T3 TOTAL, SERUM (01/22/2019 12:50 PM PST) + +--------+ + + + | Component | Value | Ref Range | Performed | Pathologist | | | | | At | Signature | + +--------+ + + + | T3, TOTAL | 72 (L) | 87 - 196 ng/dL | [facility] | | | | | | [facility] | | | | | | [place] | | + +--------+ + + + [...] + | [facility] | [address] | [place] [address] | | | [facility] | | | | + + + + + TSH W/REFLEX TO FREE T4(IF ABNORMAL) (01/22/2019 12:50 PM PST) + + + + + + | Component | Value | Ref Range | Performed | Pathologist | | | | | At | Signature | + + + + + + | TSH | 13.40 (H) | 0.46 - 5.56 | [facility] [...] | + + + + + | Entrec | [address] | [place] [address] | | | SERVICES, CORE | [address] | | | + + + + + documented in this encounter Visit Diagnoses + + | Diagnosis | + + | Malignant neoplasm of lower third of esophagus (HCC) Malignant neoplasm of lower | | third of esophagus | + + | Malignant neoplasm of abdominal esophagus (HCC) Malignant neoplasm of abdominal | | esophagus | + + documented in this encounter Administered Medications + +---------+ +--------+-------+------+ | Medication Order | MAR | Action | Dose | Rate | Site | | | Action | Date | | | | + +---------+ +--------+-------+------+ | INV nivolumab/placebo 480 mg in | New Bag | 01/22/20 | 480 mg | 120 | | | INV NaCl 0.9% IV 480 mg, | | 19 3:20 | | mL/hr | | | intravenous, Administer over 30 | | PM PST | | | | | Minutes, ONCE, 1 dose, Wed | | | | | | | 01/22/19 at 1345, Pt ID: [id number], | | | | | | | Administer using a 0.2 micron | | | | | | | filter. Flush line with 15-20 mL | | | | | | | of normal saline. For | | | | | | | investigational use only, HIGH | | | | | | | ALERT MEDICATION IRB:[id number], | | | | | | | Protocol:[id number], Infuse using | | | | | | | 0.2 micron filter., | | | | | | + +---------+ +--------+-------+------+ +---+---+ | | | +---+---+ documented in this encounter"
--- OUTSIDE RECORDS SUMMARY | ~2019-11-23 | XMS | Encounter Summary ---
Demographics + + + | Address | [address] | | | [place] [address] | + + + | Home Phone [...] Team Providers + +------+ + | Care Needle Loom Operator Helper Name | Role | Phone [...] | | Malignant | Krunal | [address] | | | | | neoplasm of | ,PhD [address] | | | | | lower third | [address] | [place] | | | | | of esophagus | [place], | Mailcode: | | | | | (HCC) | [place] | [address] [facility] | | | | | Procedures | [address] | Hospital | | | | | CT CHEST, | Phone: | [place], [place] | | | | | ABDOMEN AND | [phone] | [address] | | | | | PELVIS W IV | Fax: | Phone: | | | | | CONTRAST [place] | [phone] | [phone] | | | | | CAT SCAN OF | | Fax: | | | | | CHEST | | [phone] | | | | | CONTRAST [place] | | | | | | | [...] + + + + | 02/04/ | Tarper | Hematology | Krunal Godoy, | Malignant neoplasm | | 2019 | | Oncology Study [address] | ,PhD [address] | of lower third of | | | | [address] | Ave [place], [place] | esophagus (HCC) | | | | Mailcode: [facility] | [address] | (Primary Dx) | | | | [facility] | [phone] | | | | | and Monika, | | | | | | [facility] | | | | | | Floor [place], [place] | | | | | | [address] | | | | | | [phone] | | | +--------+ + + + [...]
--- OUTSIDE RECORDS SUMMARY | ~2019-11-23 | XMS | Encounter Summary ---
Demographics + + + | Address | [address] | | | [place] [address] | + + + | Home Phone [...] Providers + +------+ + | Care Front Office Attendant Name | Role | Phone | [...] | Oncology at [facility] | [address] [place], | | | | | [address] | [place] [address] | | | | | Mailcode: Center | | | | | | for Health and | | | | | | [facility] 2 | | | | | | [place], [place] | | | | | | [address] | | | | | | [phone] | | | +--------+ + + + [...] remote memory in tact and discharged with family/driver sales. Refer to MAR and Onc Lines and [...] | | 10/01/18 at 1500, Pt ID: [id number], | | | | | | | Administer using a 0.2 micron | | | | | | | filter. Flush line with 15-20 mL | | | | | | | of normal saline. For | | | | | | | investigational use only, HIGH | | | | | | | ALERT MEDICATION IRB:[id number], | | | | | | | Protocol:[id number], Infuse using | | | | | | | 0.2 micron filter., | | | | | | + +---------+ +--------+-------+------+ +---+---+ | | | +---+---+ documented in this encounter"
--- OUTSIDE RECORDS SUMMARY | ~2019-11-23 | XMS | Encounter Summary ---
Demographics + + + | Address | [address] | | | [place] [address] | + + + | Home Phone [...] Team Providers + +------+ + | Care Concrete Mixing Plant Laborer Name | Role | Phone | + [...] at [facility] [address] [place] | Weakness; Poor | | | Staff | [address] | [place], [place] | Nutritional Intake | | | | [id number] [facility] | [address] | | | | | [facility], | | | | | | [place] [address] | | | | | | [phone] | | | +--------+ + + + [...] hydrocodone for pain Getting IV hydration at [facility] today (headed over there now); I called and spoke with the nurse there at [facility] (Dm) and gave report, she said they will have one of the health occupations teacher come down and take a look at him. All of the above info relayed to Dr. Barrera via email. documented in this encounter Plan of Treatment Not on filedocumented as of this encounter Visit Diagnoses + + | Diagnosis | + + | Encounter for radiotherapy - Primary Radiotherapy | + + documented in this encounter"
--- OUTSIDE RECORDS SUMMARY | ~2019-11-23 | XMS | Encounter Summary ---
Demographics + + + | Address | [address] | | | [place] [address] | + + + | Home Phone [...] Team Providers + +------+ + | Care Sheet Tester Name | Role | Phone | [...] + + + + | 05/20/ | Rim Technician | Cancer Genetics at | Daniel Barrera, | Malignant neoplasm | | 2018 | | [facility] | MD [address] | of lower third of | | | | [address] | [address] | esophagus (HCC) | | | | [place] for [facility] | [place], [place] | (Primary Dx) | | | | and Healing, | [address] | | | | | Building [address] | [phone] | | | | | [place], [place] | | | | | | [address] | | | | | | [phone] | | | +--------+ + + + [...] on filedocumented as of this encounter Results RESEARCH VENIPUNCTURE ONLY (PHLEBOTOMY DRAW) (07/09/2018 9:54 AM PDT) + + + + + [...] CHERI MOSER | [address] | [place] [address] | | | [facility], [facility] | | | | | HEALTH [...]
--- OUTSIDE RECORDS SUMMARY | ~2019-11-23 | XMS | Encounter Summary ---
Demographics + + + | Address | [address] | | | [place] [address] | + + + | Home Phone [...] Team Providers + +------+ + | Care Technical Marketing Engineer Name | Role | Phone | + +------+ + | Christos Olivarez MD | PCP | | + +------+ + Encounter Details +--------+ + + + + | Date | Type | Department | Care Team | Description | +--------+ + + + + | 03/22/ | Procedure | Radiology/Imaging | | | | 2017 | Pass | Lab at [facility] [address] | | | | | | [address] Mailcode: | | | | | | [facility] | | | | | | Health and Healing, | | | | | | [place] [address], | | | | | | Floor [place], [place] | | | | | | [address] | | | | | | [phone] | | | +--------+ + + + [...]
--- OUTSIDE RECORDS SUMMARY | ~2019-11-23 | XMS | Encounter Summary ---
Demographics + + + | Address | [address] | | | [place] [address] | + + + | Home Phone [...] Team Providers + +------+ + | Care Shipmaster Name | Role | Phone | + [...] + + + + | 09/26/ | Gymnastics Coach Or Instructor | Cancer Genetics at | Marie Liz, | Malignant neoplasm | | 2018 | | [facility] | MD [address] | of lower third of | | | | [address] | [address] | esophagus (HCC) | | | | [place] for [facility] | [place] [address] | (Primary Dx) | | | | and Healing, | [phone] | | | | | Building [address] | | | | | | [place], [place] | | | | | | [address] | | | | | | [phone] | | | +--------+ + + + [...]
--- OUTSIDE RECORDS SUMMARY | ~2019-11-23 | XMS | Encounter Summary ---
Demographics + + + | Address | [address] | | | [place] [address] | + + + | Home Phone [...] Team Providers + +------+ + | Care Boilers And Pressure Vessels Inspector Name | Role | Phone | [...] | | | | | Procedures | [place], [place] | Health and | | | | | [place] | [address] | Healing, | | | | | SERVICES | Phone: | [address] | | | | | PROVIDED | [phone] | [place], [place] | | | | | PART OF [place] | Fax: | [address] | | | | | INJ | [phone] | Phone: | | | | | [address]UM[address] 1 | | [phone] | | | | | MG [place] EST | | Fax: | | | | | PATIENT | | [phone] | | | | | LEVEL V | | | | | | | Study IRB: | | | | | | | [id number] Study | | | | | | [...] | 01/22/ | Office | Hematology/Medical | Sergio Cr, | Malignant neoplasm | | 2019 | Visit | Oncology at [place] | [facility] [address] | of lower third of | | | | for Health & Healing | [facility] [address] | esophagus (HCC) | | | | [address] | [place], [place] | (Primary Dx); | | | | Mailcode: [place] | [address] | Clinical trial exam; | | | | [employer] and | [phone] | Nausea; Fatigue, | | | | [facility] 2 | | unspecified type; | | | | [place], [place] | | Neck pain; Urinary | | | | [address] | | retention | | | | [phone] | | | +--------+---------+ + + + [...] clinic hours please call the clinic at [phone]. Evenings, weekends and holidays please call [phone] and ask to have the oncologist epic application coordinator paged. documented in this encounter Progress Notes [...] to arthritis, h e continues to take [place] 5mg tab PRN. He continues to have [...] after signing consent to particip ate in [id number]: A Randomized, Multicenter, Double Blind, Phase III [...] 70.2 kg IV access: PIV RD/SW referral: sales broker at [place] established Multi-D MD: Chemotherapy teaching: done per chemo binder and ICF My Chart access: active and encouraged Patient reports [facility] [place] [place] Radiation completed at [facility]. He reports the following medical and surgical history at baseline: Past Medical History: Diagnosis Date Cervical spinal stenosis 1997 Coronary artery disease 2007 diagnosed on angiogram when experienced chest pain - treated with medications, pain attr ibuted to esophageal spasm, never had VT or stent H/O Diverticulosis 1997 Hernia, hiatal, [...] Prochlorperazine 10mg PO Q6hrs PRN nausea 12/10/18 Sergio Cr PA-C HEMATOLOGY/MEDICAL ONCOLOGY AT [address] Mailcode: [place] [id number] documented in this encounter Plan of Treatment [...]
--- OUTSIDE RECORDS SUMMARY | ~2019-11-23 | XMS | Encounter Summary ---
Demographics + + + | Address | [address] | | | [place] [address] | + + + | Home Phone [...] Team Providers + +------+ + | Care Special Duty Nurse Name | Role | Phone | + [...] | Oncology at [facility] | [address] [place], | | | | | [address] | [place] [address] | | | | | Mailcode: [place] | | | | | | [facility] Health and | | | | | | Healing, Building [address] | | | | | | [place], [place] | | | | | | [address] | | | | | | [phone] | | | +--------+ + + + [...] | | | | | ALERT MEDICATION IRB:[id number], | | | | | | | Protocol:[id number], Infuse using | | | | | | | 0.2 micron filter., | | | | | | + +---------+ +--------+-------+------+ +---+---+ | | | +---+---+ documented in this encounter"
--- OUTSIDE RECORDS SUMMARY | ~2019-11-23 | XMS | Encounter Summary ---
Demographics + + + | Address | [address] | | | [place] [address] | + + + | Home Phone [...] Team Providers + +------+ + | Care Client Services Representative Name | Role | Phone | [...] + + + + | 05/20/ | Neonatal Pediatric Nurse | Cancer Genetics at | Daniel Barrera, | Malignant neoplasm | | 2018 | | [facility] | MD [address] | of lower third of | | | | [address] | [address] | esophagus (HCC) | | | | [place] for [facility] | [place], [place] | (Primary Dx) | | | | and Healing, | [address] | | | | | Building [address] | [phone] | | | | | [place], [place] | | | | | | [address] | | | | | | [phone] | | | +--------+ + + + [...] [facility]ERI MOSER | [address] | [place] [address] | | | [facility], [facility] | | | | | HEALTH [...]
--- OUTSIDE RECORDS SUMMARY | ~2019-11-23 | XMS | Encounter Summary ---
Demographics + + + | Address | [address] | | | [place] [address] | + + + | Home Phone [...] Team Providers + +------+ + | Care Cafe Cook Name | Role | Phone | + [...] | | 2019 | | Oncology at [place] | [facility] [address] [facility] | | | | | for Health & Healing | [address] | | | | | [address] | [place], [place] | | | | | Mailcode: [place] | [address] | | | | | for Health and | [phone] | | | | | Healing, [place] [address] | | | | | | [place], [place] | | | | | | [address] | | | | | | [phone] | | | +--------+--------+ + + + [...]
--- OUTSIDE RECORDS SUMMARY | ~2019-11-23 | XMS | Encounter Summary ---
Demographics + + + | Address | [address] | | | [place] [address] | + + + | Home Phone [...] Team Providers + +------+ + | Care Hat Brusher Machine Name | Role | Phone | + +------+ + | Christos Olivarez MD | PCP | | + +------+ + Encounter Details +--------+ + + + + | Date | Type | Department | Care Team | Description | +--------+ + + + + | 11/07/ | Procedure | Radiology/Imaging | | | | 2018 | Pass | Lab at [facility] [address] | | | | | | [address] Mailcode: | | | | | | [facility] | | | | | | Health and Healing, | | | | | | [place] [address], | | | | | | Floor [place], [place] | | | | | | [address] | | | | | | [phone] | | | +--------+ + + + [...]
--- OUTSIDE RECORDS SUMMARY | ~2019-11-23 | XMS | Encounter Summary ---
Demographics + + + | Address | [address] | | | [place] [address] | + + + | Home Phone [...] Providers + +------+ + | Care Chemical Etching Processor Name | Role | Phone | + +------+ + | Luis Leiva DO | PCP | | + +------+ + Encounter Details +--------+ + + + + | Date | Type | Department | Care Team | Description | +--------+ + + + + | 04/15/ | Telephone | [facility] | Eleonora Ybarra, | | | 2017 | | [facility] [id number] | MD [address] | | | | | [place] | [place], [place] | | | | | Mailcode: [place] | [address] | | | | | [facility] | [phone] | | | | | [facility], [address] | | | | | | [place], [place] | | | | | | [address] | | | | | | [phone] | | | +--------+ + + + [...]
--- OUTSIDE RECORDS SUMMARY | ~2019-11-23 | XMS | Encounter Summary ---
Demographics + + + | Address | [address] | | | [place] [address] | + + + | Home Phone [...] Team Providers + +------+ + | Care Parachute Packer Name | Role | Phone | + +------+ + | Christos Olivarez MD | PCP | | + +------+ + Encounter Details +--------+ + + + + | Date | Type | Department | Care Team | Description | +--------+ + + + + | 10/10/ | Ear Nose Throat Physician | Hematology | Marie Liz, | Malignant neoplasm | | 2018 | | Oncology Study [address] | [address] | of lower third of | | | | [address] | [address] | esophagus (HCC) | | | | Mailcode: CH7M | [place] [address] | (Primary Dx) | | | | [facility] | [phone] | | | | | and Monika, | | | | | | [facility] | | | | | | Floor [place], [place] | | | | | | [address] | | | | | | [phone] | | | +--------+ + + + [...] + + + + + | [facility] | [address] | [place] [address] | | | SERVICES, CORE | ASHLEY [...] [facility] | [address] | [place] [address] | | | SERVICES, CORE | PARK [...] | | | this test in the [facility] | | | | | | Laboratory Test | | | | | | Directory | | | | | | (AddShoppers.Academize).Performed | | | | | | by [employer],[address] | | | | | | Aaron Jackson, [facility] [place] | | | | | | [address] | | | | | | [phone].Verutalab. | | | | | | [facility] hospital[facility]andrakant MD, | | | | | [...] [facility] | [address] | [place], [place] | | | [facility] | | [address] | | + + + + + documented in this encounter Visit Diagnoses + + | Diagnosis | + + | 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
--- OUTSIDE RECORDS SUMMARY | ~2019-11-23 | XMS | Encounter Summary ---
Demographics + + + | Address | [address] | | | [place] [address] | + + + | Home Phone | | + + + | Preferred Language | Unknown | + + + | Marital Status | | + + + | Jain Affiliation | CAT | + + + | Race | White | + + + | Ethnic Group | Not or | + + + Author + + + | Author | [facility] | + + + | Organization | [facility] | + + + | Address [...] Team Providers + +------+ + | Care Interventional Tech Name | Role | Phone | + [...] | [address] | [address] [facility] | | | | | lower third | Veterans | [facility] | | | | | of esophagus | [facility] | Rd | | | | | Esophagus | Road | [facility] [place] | | | | | Ca | [facility] [place] | [address] | | | | | Procedures | [address] | Phone: | | | | | Consult, | Phone: | [phone] | | | | | Sage Wilkins | [phone] | Fax: | | | | | | Fax: | [phone] | | | | | | [phone] | | +--------+--------+ + + + + Encounter Details +--------+ + + + + | Date | Type | Department | Care Team | Description | +--------+ + + + + | 12/24/ | Hospital | Radiation Oncology | | | | 2017 | Encounter | at [facility] [address] | | | | | | [place] | | | | | | [id number] [facility] | | | | | | HOSPITAL [place], | | | | | | [place] [address] | | | | | | [phone] | | | +--------+ + + + [...]
--- OUTSIDE RECORDS SUMMARY | ~2019-11-23 | XMS | Encounter Summary ---
Demographics + + + | Address | [address] | | | [place] [address] | + + + | Home Phone [...] Team Providers + +------+ + | Care Muffle Worker Name | Role | Phone | + +------+ + | Christos Olivarez MD | PCP | | + +------+ + Encounter Details +--------+ + + + + | Date | Type | Department | Care Team | Description | +--------+ + + + + | 05/14/ | Procedure | 6A Intra Op [address] | | | | 2018 | Pass | [address] | | | | | | Rd [facility] | | | | | | Hospital Admitting | | | | | | Desk Located on the | | | | | | 9th floor | | | | | | [place], [place] | | | | | | [address] | | | +--------+ + + + [...]
--- OUTSIDE RECORDS SUMMARY | ~2019-11-23 | XMS | Encounter Summary ---
Demographics + + + | Address | [address] | | | [place] [address] | + + + | Home Phone [...] Team Providers + +------+ + | Care Financial Services Intern Name | Role | Phone | + +------+ + | Christos Olivarez MD | PCP | | + +------+ + Encounter Details +--------+ + + + + | Date | Type | Department | Care Team | Description | +--------+ + + + + | 03/18/ | Air Quality Chemist | Hematology/Medical | Krunal Godoy, | | | 2019 | | Oncology at [place] | ,PhD [address] | | | | | for Health & Healing | [place], [place] | | | | | [address] | [address] | | | | | Mailcode: [place] | [phone] | | | | | for Health and | | | | | | [facility], [facility] 2 | | | | | | [place], [place] | | | | | | [address] | | | | | | [phone] | | | +--------+ + + + [...]
--- OUTSIDE RECORDS SUMMARY | ~2019-11-23 | XMS | Encounter Summary ---
Demographics + + + | Address | [address] | | | [place] [address] | + + + | Home Phone [...] Team Providers + +------+ + | Care Waiter/Waitress Head Name | Role | Phone | + [...] | 10/01/ | Clinical | Laboratory at [facility] | | Lab Draw | | 2018 | Support | [address] | | | | | Staff | [place], [place] | | | | | | [address] | | | | | | [phone] | | | +--------+ + + + [...] labs drawn and placed in bin r tax collection coordinator picker machine operator. Pt tolerated without incident. Pt discharged to [...] + + + + + | [facility] | [address] | [place] [address] | | | SERVICES, CORE | ASHLEY [...] | + + + + + | [facility] | [address] [facility] | [place] [address] | | | SERVICES, CORE | PARK [...] [facility] | [address] | [place] [address] | | | SERVICES, CORE | ASHLEY [...] | [facility] | | | GRAVITY | [place] performed by | | LABORATORY | | [...] LABORATORY | [address] | [place] [address] | | | SERVICES, CORE | PARK [...] [facility] | [address] | [place] [address] | | | SERVICES, CORE | PARK [...] LABORATORY | [address] | [place] [address] | | | [facility] | | | | [...] LABORATORY | | | | | | [facility], | | | | | | [...] | + + + + + | [facility] | [address] | [place] [address] | | | [facility] | | | | | HEALTH [...]
--- OUTSIDE RECORDS SUMMARY | ~2019-11-23 | XMS | Encounter Summary ---
Demographics + + + | Address | [address] | | | [place] [address] | + + + | Home Phone [...] Providers + +------+ + | Care Carbon Setter Name | Role | Phone | + +------+ + | Christos Olivarez MD | PCP | | + +------+ + Encounter Details +--------+--------+ + + + | Date | Type | Department | Care Team | Description | +--------+--------+ + + + | 05/20/ | Travel | | | | | [...]
--- OUTSIDE RECORDS SUMMARY | ~2019-11-23 | XMS | Encounter Summary ---
Demographics + + + | Address | [address] | | | [place] [address] | + + + | Home Phone [...] Providers + +------+ + | Care News Copy Editor Name | Role | Phone | + [...] | | 2017 | | Center at [facility] [address] | [address] | | | | | [address] | [place], [place] | | | | | Mailcode: [place] | [address] | | | | | for Health and | [phone] | | | | | [facility] 2 | | | | | | [place], [place] | | | | | | [address] | | | | | | [phone] | | | +--------+ + + + [...]
--- OUTSIDE RECORDS SUMMARY | ~2019-11-23 | XMS | Encounter Summary ---
Demographics + + + | Address | [address] | | | [place] [address] | + + + | Home Phone [...] Team Providers + +------+ + | Care Egg Breaker Name | Role | Phone | + [...] + + + + | 02/17/ | Clinical | Laboratory at [facility] | | Lab Draw | | 2019 | Support | [address] | | | | | Staff | [place], [place] | | | | | | [address] | | | | | | [phone] | | | +--------+ + + + [...] + documented as of this encounter Progress Anupama Kelley RN - 02/17/2019 11:00 AM PDT20g PIV in place from CT scan earlier today . CBC, CMP, LDH, Amylase, and Lipase were drawn via PIV. Pt tolerated without incident. Pt discharged to provider visit. documented in this encounter Plan of Treatment Not on filedocumented as of this encounter Procedures + +--------+ + + + | Procedure Name | Priori | Date/Time | Associated Diagnosis | Comments | | | ty | | | | + +--------+ + + + | CBC AND AUTO DIFF - | Routin | 02/17/2019 | Malignant neoplasm | Results for this | | [facility] | e | 11:03 AM | of lower third of | procedure are in the | | | | PDT | esophagus (HCC) | results section. | + +--------+ + + + | COMPLETE METABOLIC | Routin | 02/17/2019 | Malignant neoplasm | Results for this | | PANEL - OLP | e | 11:03 AM | of lower third of | procedure are in the | | | | PDT | esophagus (HCC) | results section. | + +--------+ + + + | CBC WITH AUTO DIFF - | Routin | 02/17/2019 | Malignant neoplasm | Results for this | | OLP | e | 11:03 AM | of lower third of | procedure are in the | | | | PDT | esophagus (HCC) | results section. | + +--------+ + + + | [facility] - COMPLETE | Routin | 02/17/2019 | Malignant neoplasm | Results for this | | METABOLIC SET | e | 11:03 AM | of lower third of | procedure are in the | | | | PDT | esophagus (HCC) | results section. | + +--------+ + + + | LIPASE, PLASMA | Routin | 02/17/2019 | Malignant neoplasm | Results for this | | | e | 11:03 AM | of lower third of | procedure are in the | | | | PDT | esophagus (HCC) | results section. | + +--------+ + + + | LDH TOTAL, PLASMA | Routin | 02/17/2019 | Malignant neoplasm | Results for this | | | e | 11:03 AM | of lower third of | procedure are in the | | | | PDT | esophagus (HCC) | results section. | + +--------+ + + + | AMYLASE, PLASMA | Routin | 02/17/2019 | Malignant neoplasm | Results for this | | | e | 11:03 AM | of lower third of | procedure are in the | | | | PDT | esophagus (HCC) | results section. | + +--------+ + + + documented in this encounter Results LIPASE, PLASMA (02/17/2019 11:03 [...] [facility] | [address] | [place] [address] | | | TMIO, JUSTIN | [address] | | | [...] | + + + + + | [facility] | [address] | [place] [address] | | | SERVICES, CORE | ASHLEY [...] [facility] | [address] | [place] [address] | | | SERVICES, CORE | [address] | | | + + + + + CBC AND AUTO DIFF - [facility] (02/17/2019 11:03 AM PDT) + + + + + + | Component | Value | Ref Range | Performed | Pathologist | | | | | At | Signature | + + + + + + | WHITE CELL | 4.41 | 3.50 - 10.80 | [facility] | | | COUNT | | K/cu mm | LABORATORY | | | | | | SERVICES, | | | | | | [facility] | | | | | | HE[facility] + | | | | | | HEALING | | + + + + + + | RED CELL | 3.21 (L) | 4.50 - 6.00 | [facility] [...] + + + + | HEMATOCRIT | 32.1 (L) | 41.0 - 53.0 % | [...] + + + + | MCHC | 33.6 | 32.0 - 36.0 | [facility] | | | | | g/dL | LABORATORY | | | | | | SERVICES, | | | | | | [facility] | [facility] + | | | | | | [facility]ALING | | + + + + + + | RDW SD | 47.0 (H) | 35.1 - 46.3 fL | [facility] | | | | | | LABORATORY | | | | | | SERVICES, | | | | | | [facility] | | [facility] + | | | | | | HEALING | | + + + + + + | PLATELET | 196 | 150 - 400 K/cu | [facility] | | | COUNT | | mm | LABORATORY | | | | | | SERVICES, | | | | | | [facility] | | [facility] + | | | | | | HEALING | | + + + + + + | MPV | 8.2 (L) | 9.7 - 12.3 fL | [facility] | | | | | | LABORATORY | | | | | | SERVICES, | | | | | | [facility] | | | | | | [facility] + | | | | | | HEALING | | + + + + + + | NEUTROPHIL | 64.0 | 50.0 - 70.0 % | [facility] | | | % | | | LABORATORY | | | | | | SERVICES, | | | | | | [facility] | | | | [facility] + | | | | | | HEALING | | + + + + + + | LYMPHOCYTE | 19.7 | 18.0 - 42.0 % | [facility] | | | % | | | LABORATORY | | | | | | SERVICES, | | | | | | [facility] | | [facility] | | | [facility] + | | | | | | HEALING | | + + + + + + | MONOCYTE % | 8.6 | 3.5 - 9.0 % | [facility] | | | | | | LABORATORY | | | | | | SERVICES, | | | | | | [facility] | | | | | | [facility] + | | | | | | HEALING | | + + + + + + | EOS % | 7.0 (H) | 1.0 - 3.0 % | [...] + + + + | NEUTROPHIL | 2.82 | 1.80 - 7.70 | [facility] | [...] + + + | EOS # | 0.31 | 0.00 - 0.50 | [facility] | [...] LABORATORY | [address] | [place] [address] | | | [facility] | [facility] | [facility] + [facility] | | | | + + + + + [facility] - COMPLETE METABOLIC SET (02/17/2019 11:03 AM PDT) + +---------+ + + + | Component | Value | Ref Range | Performed | Pathologist | | | | | At | Signature | + +---------+ + + + | GLUCOSE, | 70 | 70 - 99 mg/dL | [facility] [...] +---------+ + + + | CREATININE | 0.70 | 0.70 - 1.30 | [facility] | | | PLASMA | | mg/dL | LABORATORY | | | (LAB) | | | SERVICES, | | | | | | [facility] | | | | | | [facility] + | | | | | | HEALING | | + +---------+ + + + | SODIUM, | 138 | 134 - 143 | [facility] | | | PLASMA | | mmol/L | LABORATORY | | | (LAB) | | | SERVICES, | | | | | | [facility] | | | | | | [facility] + | | | | | | HEALING | | + +---------+ + + + | POTASSIUM, | 3.6 [...] + + + | TOTAL CO2, | 32 (H) | 22 - 29 mmol/L | [...] + | ALK PHOS | 89 | 43 - 92 U/L | [facility] | | | | | | LABORATORY | | | | | | SERVICES, | | | | | | [facility] | | | | | | [facility] + | | | | | | HEALING | | + +---------+ + + + | AST(SGOT) | 71 (H) | <=41 U/L | [facility] | [...] [facility] | [address] | [place] [address] | | | SERVICES, [facility] | | | | | HEALTH [...]
--- OUTSIDE RECORDS SUMMARY | ~2019-11-23 | XMS | Encounter Summary ---
Demographics + + + | Address | [address] | | | [place] [address] | + + + | Home Phone [...] Team Providers + +------+ + | Care Sheep Farm Worker Name | Role | Phone | [...] | [address] | [address] [facility] | | | | | lower third | Veterans | [facility] | | | | | of esophagus | [facility] | Rd | | | | | Esophagus | Road | [facility] [place] | | | | | Ca | [facility] [place] | [address] | | | | | Procedures | [address] | Phone: | | | | | Consult, | Phone: | [phone] | | | | | Sage Wilkins | [phone] | Fax: | | | | | | Fax: | [phone] | | | | | | [phone] | | +--------+--------+ + + + + Encounter Details +--------+ + + + + | Date | Type | Department | Care Team | Description | +--------+ + + + + | 01/09/ | Hospital | Radiation Oncology | | | | 2018 | Encounter | at [facility] [address] | | | | | | [place] | | | | | | [id number] [facility] | | | | | | HOSPITAL [place], | | | | | | [place] [address] | | | | | | [phone] | | | +--------+ + + + [...]
--- OUTSIDE RECORDS SUMMARY | ~2019-11-23 | XMS | Encounter Summary ---
Demographics + + + | Address | [address] | | | [place] [address] | + + + | Home Phone [...] Team Providers + +------+ + | Care Top Inventory Control Executive Name | Role | Phone | + +------+ + | Christos Olivarez MD | PCP | | + +------+ + Encounter Details +--------+ + + + + | Date | Type | Department | Care Team | Description | +--------+ + + + + | 04/28/ | Procedure | Radiology/Imaging | | | | 2019 | Pass | Lab at [facility] [address] | | | | | | [address] Mailcode: | | | | | | CH3[facility] | | | | | | Health and Healing, | | | | | | [facility] , | | | | | | Floor [place], [place] | | | | | | [address] | | | | | | [phone] | | | +--------+ + + + [...]
--- OUTSIDE RECORDS SUMMARY | ~2019-11-23 | XMS | Encounter Summary ---
Demographics + + + | Address | [address] | | | [place] [address] | + + + | Home Phone [...] Team Providers + +------+ + | Care Industrial Truck Mechanic Name | Role | Phone | [...] Authorized | | Surgery | Diagnoses | João | Luiz Foregut | | | | | Malignant | MD Daija | [facility] [address] | | | | | neoplasm of | [address] | | | | | lower third | Veterans | Mailcode: | | | | | of esophagus | Hospital | [facility] | | | | | | Road | Health and | | | | | | [place], [place] | Healing, | | | | | | [address] | [address] | | | | | | Phone: | [place], [place] | | | | | | [phone] | [address] | | | | | | Fax: | Phone: | | | | | | [phone] | [phone] | | | | | | | Fax: | | | | | | | [phone] | + +--------+ + + + + Encounter Details +--------+---------+ + + + | Date | Type | Department | Care Team | Description | +--------+---------+ + + + | 06/07/ | Office | Digestive Health | Eleonora Ybarra, | Primary | | 2018 | Visit | Center at [facility] [address] | MD [address] | adenocarcinoma of | | | | [address] | [address] [place], [place] | distal third of | | | | Mailcode: Center | [address] | esophagus (HCC) | | | | for Health and | [phone] | (Primary Dx) | | | | [facility] 2 | | | | | | [place], [place] | | | | | | [address] | | | | | | [phone] | | | +--------+---------+ + + + [...] + + + | Blood Pressure | 118/86 | 06/07/2018 3:25 PM | | | | | PDT | | + + + + + | Pulse | 81 | 06/07/2018 3:25 PM | | | | | PDT | | + + + + + | Temperature | 36.4 C (97.6 F) | 06/07/2018 3:25 PM | | | | | PDT | | + + + + + | Respiratory Rate | - | - | | + + + + + | Oxygen Saturation | 97% | 06/07/2018 3:25 PM | | | | | PDT | | + + + + + | Inhaled Oxygen | - | - | | | Concentration | | | | + + + + + | Weight | 68.2 kg (150 lb 6.4 | 06/07/2018 3:25 PM | | | | oz) | PDT | | + + + + + | Height | 172.7 cm (5' 8") | 06/07/2018 3:25 PM | | | | | PDT | | + + + + + | Body Mass Index | 22.87 | 06/07/2018 3:25 PM | | | | | PDT [...] as of this encounter Progress Notes Eleonora Ybarra MD - 06/07/2018 3:20 PM PDTFormatting of this note might be different f rom the original. DEPARTMENT OF SURGERY [facility] Follow-Up Note Patient: Jacob Sapp ([id number]) Date: 06/07/2018 ID: Jacob Sapp is a 67 y.o. 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 Vicente/Dr. Pal/. Interval History: Overall doing well Low energy - sleeps a lot during day but doesn't sleep well at night. Has not tried sleepin g aid. 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 Tolerating small amount of fulls by mouth. Feels like it is not going down easily yet. Foll owing <90cc/hr restriction still. Still using TF's 24 hours. BM's fine Minimal to no pain - takes hydrocodone for chronic neck pain (Rx by PCP) Physical Exam: Ht 1.727 m (5' 8"), Wt 68.2 kg (150 lb 6.4 oz), BP 118/86, Pulse 81, Temperature 36.4 C ( 97.6 F), SpO2 97%, BMI 22.87 kg/(m^2). Facility age limit for growth percentiles is 18 ye ars. Physical Exam Constitutional: Appears slightly weak but alert and moving well. HENT: Head: Normocephalic. Neck: Neck incision healed well. No swelling or erythema. Cardiovascular: Normal rate. Pulmonary/Chest: Effort normal. Chest drain and VATs port sites healed well. Abdominal: Soft. He exhibits no distension and no mass. There is no tenderness. There is no rebound and no guarding. Lap port site incisions healed well. J-tube in situ - no evidence of infection. Final Path: Final Pathologic Diagnosis A. 9R lymph node, biopsy: ? One lymph node, negative for malignancy (0/1) B. 10R lymph node, dissection: ? Two lymph nodes, negative for malignancy (0/2) C. 8L lymph node, dissection: ? One lymph node, negative for malignancy (0/1) D. Level 7 lymph node, dissection: ? Two lymph nodes, negative for malignancy (0/2) E. Distal margin, excision: ? Portion of stomach, negative for malignancy F. Proximal margin, excision: ? Portion of esophagus, negative for malignancy G. Esophagus and stomach, esophagogastrectomy: ? Residual invasive adenocarcinoma, moderately to poorly differentiated, invasive into adve ntitia, spanning at least 5.0 cm. ? Margins negative for dysplasia or malignancy ? Metastatic carcinoma in four of fourteen lymph nodes (4/14), see comment ? AJCC pathologic stage (8th edition): ypT3 N2 H. Additional fundus of stomach, resection: ? Portion of stomach with no diagnostic abnormality Comment: The positive lymph nodes in specimen G have been entirely replaced by metastatic c arcinoma. Her2/enio studies will be performed on specimen G and reported in an addendum. Case seen by: Pamela Camara MD, PhD Surgical Pathology Fellow John Odonnell MD, PhD Pathologist My electronic signature indicates that I have personally reviewed all diagnostic slides, th e gross and/or microscopic portion of this report and formulated the final diagnosis. at 1231 SYNOPTIC REPORTS ESOPHAGUS Esophagus - All Specimens SPECIMEN Procedure Esophagogastrectomy TUMOR Tumor Site Esophagogastric junction (EGJ) Relationship of Tumor to Esophagogastric Junction Tumor midpoint is located at the esophag ogastric junction Histologic Type Adenocarcinoma Histologic Grade G3: Poorly differentiated, undifferentiated Tumor Size Greatest dimension in Centimeters (cm): at least 5 cm Centimeters (cm) Tumor Extent (Note E) Tumor Extension Tumor invades adventitia Accessory Findings Treatment Effect Absent Extensive residual cancer with no evident tumor regression (poor or no response, score 3) Lymphovascular Invasion Present Perineural Invasion Present MARGINS Margins Proximal Margin Uninvolved by invasive carcinoma Status of Dysplasia at Proximal Margin Uninvolved by dysplasia Distal Margin Uninvolved by invasive carcinoma Status of Dysplasia at Distal Margin Uninvolved by dysplasia Radial Margin Uninvolved by invasive carcinoma Other Margin radial Margin Status Uninvolved by invasive carcinoma LYMPH NODES Number of Lymph Nodes Involved 4 Number of Lymph Nodes Examined 20 PATHOLOGIC STAGE CLASSIFICATION (pTNM, AJCC 8th Edition) TNM Descriptors y (post-treatment) Primary Tumor (pT) pT3 Regional Lymph Nodes (pN) pN2 ADDITIONAL FINDINGS Additional Pathologic Findings High-grade glandular dysplasia . Stain (block #G15) Result HER-2/enio (PATHWAYTMHer2 kit, 4B5) Negative (0) Assessment and Plan: Jacob Sapp is a 67 y.o. male with yT3N2 esophageal adenocarcinoma s/p esophagectomy. Slowly recovering still relying on TF's likely 2/2 poor energy and mild intolerance to fulls. Disc ussed his final pathology with patient and . Recommend continue to trial advancing intake PO with goal to remove J-tube (if possible) by 1.5 months. Continue continuous TF's this week while trying to increase day time PO intake. Then, run night-time only TF's for 1-2 weeks. Then, Hold all TFs for 1-2 weeks prior to RTC. Monitor Weight over this time course Avoid sleep during day - to reset rhythm. Slowly increase activity as tolerated. RTC in 1-1.5 months pending ability to wean TF's to remove J-tube/ Discuss in next ECC - ? need for adjuvant therapy. 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
--- OUTSIDE RECORDS SUMMARY | ~2019-11-23 | XMS | Encounter Summary ---
Demographics + + + | Address | [address] | | | [place] [address] | + + + | Home Phone [...] Team Providers + +------+ + | Care Retail Sales Teammate Name | Role | Phone | + [...] | [address] | [address] [facility] | | | | | lower third | Veterans | [facility] | | | | | of esophagus | [facility] | Rd | | | | | Esophagus | Road | [facility] [place] | | | | | Ca | [facility] [place] | [address] | | | | | Procedures | [address] | Phone: | | | | | Consult, | Phone: | [phone] | | | | | Sage Wilkins | [phone] | Fax: | | | | | | Fax: | [phone] | | | | | | [phone] | | +--------+--------+ + + + + Encounter Details +--------+ + + + + | Date | Type | Department | Care Team | Description | +--------+ + + + + | 01/25/ | Hospital | Radiation Oncology | | | | 2018 | Encounter | at [facility] [address] | | | | | | [place] | | | | | | [id number] [facility] | | | | | | HOSPITAL [place], | | | | | | [place] [address] | | | | | | [phone] | | | +--------+ + + + [...]
--- OUTSIDE RECORDS SUMMARY | ~2019-11-23 | XMS | Encounter Summary ---
Demographics + + + | Address | [address] | | | [place] [address] | + + + | Home Phone [...] Team Providers + +------+ + | Care Cryptologic Supervisor Name | Role | Phone | [...] [address] | radiotherapy | | | | [place] | [address] | (Primary Dx) | | | | [id number] [facility] | [place], [place] | | | | | [facility], | [address] | | | | | [place] [address] | [phone] | | | | | [phone] | | | +--------+---------+ + + + [...] Visit Note ID: 67 y.o. male with [id number] esophageal adenocarcinoma (7 LN) 36-44cm from the [...]
--- OUTSIDE RECORDS SUMMARY | ~2019-11-23 | XMS | Encounter Summary ---
Demographics + + + | Address | [address] | | | [place] [address] | + + + | Home Phone [...] Team Providers + +------+ + | Care Vice President Fixed Income Name | Role | Phone | + [...] | [address] | [address] [facility] | | | | | lower third | Veterans | [facility] | | | | | of esophagus | [facility] | Rd | | | | | Esophagus | Road | [place], [place] | | | | | Ca | [facility] [place] | [address] | | | | | Procedures | [address] | Phone: | | | | | Consult, | Phone: | [phone] | | | | | Claudette F/U | [phone] | Fax: | | | | | | Fax: | [phone] | | | | | | [phone] | | +--------+--------+ + + + + Encounter Details +--------+---------+ + + + | Date | Type | Department | Care Team | Description | +--------+---------+ + + + | 03/05/ | Office | Radiation Oncology | Suzanne Barrera, | Malignant neoplasm | | 2018 | Visit | at [facility] [address] | [address] | of esophagus, | | | | [place] | [address] | unspecified location | | | | [id number] [facility] | [facility] [place] | (HCC) (Primary Dx) | | | | HOSPITAL [place], | [address] | | | | | [place] [address] | [phone] | | | | | [phone] | | | +--------+---------+ + + + [...] Up Note Identification: 67 y.o. 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 Sjejhkajd-Yymdysvlf-Oz-Mag-Sim [id number] mg/30 mL mucous membrane mouthwash Take 15 [...] metastatic disease. Still very deconditioned but slowly ashly vering following definitive doses of neoadj chemoRT. [...]
--- OUTSIDE RECORDS SUMMARY | ~2019-11-23 | XMS | Encounter Summary ---
Demographics + + + | Address | [address] | | | [place] [address] | + + + | Home Phone [...] Author + + + | Author | [facility] | + + + | Organization | [facility] | + + + [...] Team Providers + +------+ + | Care Tombstone Erector Helper Name | Role | Phone | + +------+ + | Christos Olivarez MD | PCP | | + +------+ + Encounter Details +--------+ + + + + | Date | Type | Department | Care Team | Description | +--------+ + + + + | 04/18/ | Binding Nicker | Hematology | Krunal Godoy, | Malignant neoplasm | | 2019 | | Oncology Study [address] | ,PhD [address] | of lower third of | | | | [address] | Ave [place], [place] | esophagus (HCC) | | | | Mailcode: CH7M | [address] | (Primary Dx) | | | | [facility] | [phone] | | | | | and Monika, | | | | | | [facility] | | | | | | [place], [place] | | | | | | [address] | | | | | | [phone] | | | +--------+ + + + [...] | + + + + + | [facility] | [address] | [place] [address] | | | SERVICES, CORE | [address] [...] | + + + + + | [facility] | [address] | [place] [address] | | | SERVICES, CORE | PARK [...] CHERI MOSER | [address] | [place] [address] | | | JUSTIN [place] | [address] | | | + + + + + documented in this encounter Visit Diagnoses + + | Diagnosis | + + | 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
--- OUTSIDE RECORDS SUMMARY | ~2019-11-23 | XMS | Encounter Summary ---
Demographics + + + | Address | [address] | | | [place] [address] | + + + | Home Phone [...] Team Providers + +------+ + | Care Brazer Controlled Atmospheric Furnace Name | Role | Phone | + [...] [address] | | | | | [place] | [address] | | | | | [id number] [facility] | [place], [place] | | | | | [facility], | [address] | | | | | [place] [address] | [phone] | | | | | [phone] | | | +--------+ + + + [...]
--- OUTSIDE RECORDS SUMMARY | ~2019-11-23 | XMS | Encounter Summary ---
Demographics + + + | Address | [address] | | | [place] [address] | + + + | Home Phone [...] Providers + +------+ + | Care Commercial Fisher Name | Role | Phone | + +------+ + | Christos Olivarez MD | PCP | | + +------+ + Encounter Details +--------+ + + + + | Date | Type | Department | Care Team | Description | +--------+ + + + + | 04/09/ | Data Processing Control Clerk | LAB CORE [address] | Tino Mariscal MD | Pre-op testing | | 2018 | | [address] | [address] | (Primary Dx) | | | | [place], [place] | [address] [place], | | | | | [address] | [place] [address] | | | | | [phone] | [phone] | | | | | | | [...]
--- OUTSIDE RECORDS SUMMARY | ~2019-11-23 | XMS | Encounter Summary ---
Demographics + + + | Address | [address] | | | [place] [address] | + + + | Home Phone | | + + + | Preferred Language | Unknown | + + + | Marital Status | | + + + | Samaritan Affiliation | 1041 | + + + | Race | Unknown | + + + | Ethnic Group | Unknown | + + + Author + + + | Author | [facility] | | | and [place] | + + + | Organization | [facility] | | | and [...] Team Providers + +------+ + | Care Welcome Wagon Hostess Name | Role | Phone | + +------+ + PCP | Unavailable | + +------+ + Reason for Visit + + + | Reason | Comments | + + + | Appointment | | + + + Encounter Details +--------+ + + + + | Date | Type | Department | Care Team | Description | +--------+ + + + + | 11/05/ | Telephone | [facility] | Antonio Conteh MD | Appointment | | 2012 | | GASTROENTEROLOGY | [address] | | | | | [address] [place] | [address] [place], [place] | | | | | [address] [place], [place] | [address] | | | | | [address] | | | | | | [phone] | | | +--------+ + + + [...]
--- OUTSIDE RECORDS SUMMARY | ~2019-11-23 | XMS | Encounter Summary ---
Demographics + + + | Address | [address] | | | [place] [address] | + + + | Home Phone [...] Team Providers + +------+ + | Care Custodian Blood Bank Name | Role | Phone | + +------+ + | Christos Olivarez MD | PCP | | + +------+ + Reason for Visit + + + | Reason | Comments | + + + | Immunotherapy | INV Nivolumab/ Placebo | + + + Encounter Details +--------+ + + + + | Date | Type | Department | Care Team | Description | +--------+ + + + + | 12/10/ | Hospital | Hematology/Medical | A, [address] | | | 2019 | Encounter | Oncology at [facility] | [address] [place], | | | | | [address] | [place] [address] | | | | | Mailcode: [place] | | | | | | [facility] | | | | | | Healing, [address] | | | | | | [place], [place] | | | | | | [address] | | | | | | [phone] | | | +--------+ + + + [...] (144 lb) | 12/10/2018 2:30 PM | | | [...] encounter Progress Notes Daisy Sheikh RN - 12/10/2018 1:17 PM PSTChemotherapy Nurse Note Name: Jacob Sapp Date: 12/10/2018 Physician: Agusto Allergies: Jacob is allergic to codeine. Significant Other: at chairside Nursing Assessment: Fever: no; Diarrhea:No Constipation: No SOB / Cough: no; Rash: no Edema: no; Mucositis: no; Urinary: no; Neuropathy: no; S/S Bleeding: no; Severity (1=Not at all, 2=A little, 3=Quite a bit, 4=Very much) Nausea and/or Vomitin and 3- pt states dry heave 2-3x/wk Fatigue: 2 and 3 Pain: stomach Narrative: Patient here for INV Nivolumab/ Placebo. PIV in place from starter apt and with brisk BR. Positive blood return on IV line prior an d after infusion. Medication infused with 1000ml NS sidearm bag. Pt tolerated without inci dent. PIV d/c'd and intact. Pt Alert & Oriented x3, No acute distress, Mood & affect appr opriate and Recent & remote memory intact and [...] 240 mg in | New Bag | 12/10/19 | 240 mg | 120 | | | INV NaCl 0.9% IV 240 mg, | | 19 4:50 | | mL/hr | | | intravenous, Administer over 30 | | PM PST | | | | | Minutes, ONCE, 1 dose, Tue | | | | | | | 12/10/18 at 1530, Pt ID: , | | | | | | | Administer using a 0.2 micron | | | | | | | filter. Flush line with 15-20 mL | | | | | | | of normal saline. For | | | | | | | investigational use only, HIGH | | | | | | | ALERT MEDICATION IRB:[id number], | | | | | | | Protocol:[id number], Infuse using | | | | | | | 0.2 micron filter., | | | | | | + +---------+ +--------+-------+------+ +---+---+ | | | +---+---+ + +---------+ + +---+---+ | sodium chloride 0.9 % (NS) IV | New Bag | 12/10/19 | 1,000 mL | | | | infusion 1,000 mL, intravenous, | | 19 3:45 | | | | | ONCE, 1 dose, 12/10/18 at 1600 | | PM PST | | | | + +---------+ + +---+---+ +---+---+ | | | +---+---+ documented in this encounter"
--- OUTSIDE RECORDS SUMMARY | ~2019-11-23 | XMS | Encounter Summary ---
Demographics + + + | Address | [address] | | | [place] [address] | + + + | Home Phone [...] Team Providers + +------+ + | Care Stock Mover Name | Role | Phone | + [...] | | lower third | Veterans | [facility] | | | | | of esophagus | [facility] | Rd | | | | | Esophagus | Road | [facility] [place] | | | | | Ca | [facility] [place] | [address] | | | | | Procedures | [address] | Phone: | | | | | Consult, | Phone: | [phone] | | | | | Sage Wilkins | [phone] | Fax: | | | | | | Fax: | [phone] | | | | | | [phone] | | +--------+--------+ + + + + Encounter Details +--------+ + + + + | Date | Type | Department | Care Team | Description | +--------+ + + + + | 01/08/ | Hospital | Radiation Oncology | | | | 2018 | Encounter | at [facility] [address] | | | | | | [place] | | | | | | [id number] [facility] | | | | | | HOSPITAL [place], | | | | | | [place] [address] | | | | | | [phone] | | | +--------+ + + + [...]
--- OUTSIDE RECORDS SUMMARY | ~2019-11-23 | XMS | Encounter Summary ---
Demographics + + + | Address | [address] | | | [place] [address] | + + + | Home Phone [...] Team Providers + +------+ + | Care Data Entry Processor Name | Role | Phone | + +------+ + | Christos Oilvarez MD | PCP | | + +------+ + Encounter Details +--------+ + + + + | Date | Type | Department | Care Team | Description | +--------+ + + + + | 05/20/ | Telephone | Cancer Genetics at | Daniel Barrera, | | | 2018 | IP | [facility] | [address] | | | | | [address] | [address] | | | | | [place] [facility] | [place], [place] | | | | | and Healing, | [address] | | | | | [address] | [phone] | | | | | [place], [place] | | | | | | [address] | | | | | | [phone] | | | +--------+ + + + [...]
--- OUTSIDE RECORDS SUMMARY | ~2019-11-23 | XMS | Encounter Summary ---
Demographics + + + | Address | [address] | | | [place] [address] | + + + | Home Phone [...] Team Providers + +------+ + | Care Fitting Room Checker Name | Role | Phone | + +------+ + | Christos Olivarez MD | PCP | | + +------+ + Encounter Details +--------+--------+ + + + | Date | Type | Department | Care Team | Description | +--------+--------+ + + + | 07/15/ | Travel | | | | | [...]
--- OUTSIDE RECORDS SUMMARY | ~2019-11-23 | XMS | Encounter Summary ---
Demographics + + + | Address | [address] | | | [place] [address] | + + + | Home Phone | | + + + | Preferred Language | Unknown | + + + | Marital Status | | + + + | Latter-Day Affiliation | CAT | + + + [...] Providers + +------+ + | Care Coil Cutter Name | Role | Phone | + [...] | | lower third | Veterans | [facility] | | | | | of esophagus | [facility] | Rd | | | | | Esophagus | Road | [facility] [place] | | | | | Ca | [facility] [place] | [address] | | | | | Procedures | [address] | Phone: | | | | | Consult, | Phone: | [phone] | | | | | Sage Wilkins | [phone] | Fax: | | | | | | Fax: | [phone] | | | | | | [phone] | | +--------+--------+ + + + + Encounter Details +--------+ + + + + | Date | Type | Department | Care Team | Description | +--------+ + + + + | 01/23/ | Hospital | Radiation Oncology | | | | 2017 | Encounter | at [facility] [address] | | | | | | [place] | | | | | | [id number] [facility] | | | | | | HOSPITAL [place], | | | | | | [place] [address] | | | | | | [phone] | | | +--------+ + + + [...]
--- OUTSIDE RECORDS SUMMARY | ~2019-11-23 | XMS | Encounter Summary ---
Demographics + + + | Address | [address] | | | [place] [address] | + + + | Home Phone [...] Team Providers + +------+ + | Care Proposal Development Manager Name | Role | Phone | + +------+ + | Christos Olviarez MD | PCP | | + +------+ [...] [place] | | | | | | ([facility]) | [address] | | | | | | Procedures | Phone: | | | | | | CT CHEST, | [phone] | | | | | | ABDOMEN AND | Fax: | | | | | | PELVIS W IV | [phone] | | | | | | CONTRAST | | | + +--------+ + + + + Encounter Details +--------+ + + + + | Date | Type | Department | Care Team | Description | +--------+ + + + + | 11/07/ | Director Of Integrated Marketing | Hematology | Marie Liz, | Malignant neoplasm | | 2018 | | Oncology Study [address] | [address] | of esophagus, | | | | [address] | Road [address] | unspecified location | | | | Mailcode: CH7M | [place] [address] | ([facility]) (Primary Dx) | | | | [place] for [facility] | [phone] | | | | | and Healing, | | | | | | Building [address], [facility] | | | | | | Floor [place], [place] | | | | | | [address] | | | | | | [phone] | | | +--------+ + + + [...]
--- OUTSIDE RECORDS SUMMARY | ~2019-11-23 | XMS | Encounter Summary ---
Demographics + + + | Address | [address] | | | [place] [address] | + + + | Home Phone [...] Team Providers + +------+ + | Care Scientific Glass Blower Name | Role | Phone | + +------+ + | Christos Olivarez MD | PCP | | + +------+ + Encounter Details +--------+--------+ + + + | Date | Type | Department | Care Team | Description | +--------+--------+ + + + | 08/22/ | Travel | | | | | [...]
--- OUTSIDE RECORDS SUMMARY | ~2019-11-23 | XMS | Encounter Summary ---
Demographics + + + | Address | [address] | | | [place] [address] | + + + | Home Phone [...] + +------+ + | Care General Warehouse Worker Name | Role | Phone | + +------+ + | Christos Olivarez MD | PCP | | + +------+ + Reason for Visit + + + | Reason | Comments | + + + | Lab Draw | PIV | + + + Encounter Details +--------+ + + + + | Date | Type | Department | Care Team | Description | +--------+ + + + + | 07/15/ | Clinical | Laboratory at [facility] | | Lab Draw (PIV) | | 2019 | Support | [address] | | | | | Staff | [place], [place] | | | | | | [address] | | | | | | [phone] | | | +--------+ + + + [...] + documented as of this encounter Progress Evelyn Mccormick RN - 07/15/2019 1:00 PM PDT22 gauge PIV placed in patient s right forearm, using an IV start kit. PIV with excellent blood return. Labs drawn and sent. PIV flushed wi th 10 mL NS without any problems. Sterile transparent dressing applied. Patient tolerated p rocedure well. Evelyn Lawson RN documented in this encounter Plan of Treatment Not on filedocumented as of this encounter Procedures + +--------+ + + + | Procedure Name | Priori | Date/Time | Associated Diagnosis | Comments | | | ty | | | | + +--------+ + + + | TSH W/REFLEX TO FREE | Routin | 07/15/2019 | Malignant neoplasm | Results for this | | T4(IF ABNORMAL) | e | 12:24 PM | of lower third of | procedure are in the | | | | PDT | esophagus (HCC) | results section. | + +--------+ + + + | T3 TOTAL, SERUM | Routin | 07/15/2019 | Malignant neoplasm | Results for this | | | e | 12:24 PM | of lower third of | procedure are in the | | | | PDT | esophagus (HCC) | results section. | + +--------+ + + + | CBC AND AUTO DIFF - | Routin | 07/15/2019 | Malignant neoplasm | Results for this | | [facility] | e | 12:23 PM | of lower third of | procedure are in the | | | | PDT | esophagus (HCC) | results section. | + +--------+ + + + | COMPLETE METABOLIC | Routin | 07/15/2019 | Malignant neoplasm | Results for this | | PANEL - OLP | e | 12:23 PM | of lower third of | procedure are in the | | | | PDT | esophagus (HCC) | results section. | + +--------+ + + + | CBC WITH AUTO DIFF - | Routin | 07/15/2019 | Malignant neoplasm | Results for this | | OLP | e | 12:23 PM | of lower third of | procedure are in the | | | | PDT | esophagus (HCC) | results section. | + +--------+ + + + | [facility] - COMPLETE | Routin | 07/15/2019 | Malignant neoplasm | Results for this | | METABOLIC SET | e | 12:23 PM | of lower third of | procedure are in the | | | | PDT | esophagus (HCC) | results section. | + +--------+ + + + | LIPASE, PLASMA | Routin | 07/15/2019 | Malignant neoplasm | Results for this | | | e | 12:23 PM | of lower third of | procedure are in the | | | | PDT | esophagus (HCC) | results section. | + +--------+ + + + | LDH TOTAL, PLASMA | Routin | 07/15/2019 | Malignant neoplasm | Results for this | | | e | 12:23 PM | of lower third of | procedure are in the | | | | PDT | esophagus (HCC) | results section. | + +--------+ + + + | AMYLASE, PLASMA | Routin | 07/15/2019 | Malignant neoplasm | Results for this | | | e | 12:23 PM | of lower third of | procedure are in the | | | | PDT | esophagus (HCC) | results section. | + +--------+ + + + | NURSING | Routin | 07/15/2019 | Malignant neoplasm | | | COMMUNICATION #1 - | e | 12:22 PM | of lower third of | | | [place] | | PDT | esophagus (HCC) | | + +--------+ + + + documented in this encounter Results T3 TOTAL, SERUM (07/15/2019 12:24 PM PDT) + +-------+ + + + | Component | Value | Ref Range | Performed | Pathologist | | | | | At | Signature | + +-------+ + + + | T3, TOTAL | 109 | 87 - 196 ng/dL | [facility] | | | | | | [facility] - | | | | | | [place] | | + +-------+ + + + [...] + | [facility] - | [address] | [place] [address] | | | [place] | | | | + + + + + TSH W/REFLEX TO FREE T4(IF ABNORMAL) (07/15/2019 12:24 PM PDT) + +-------+ + + + | Component | Value | Ref Range | Performed | Pathologist | | | | | At | Signature | + +-------+ + + + | TSH | 4.61 | 0.46 - 5.56 | [facility] | [...] | + + + + + | [facility] | [address] | [place] [address] | | | TIMO, JUSTIN | [address] [...] | + + + + + | [facility] | [address] | [place] [address] | | | SERVICES, CORE | PARK [...] | + + + + + | [facility] | [address] | [place] [address] | | | SERVICES, CORE | [address] | | | + + + + + LIPASE, PLASMA (07/15/2019 12:23 PM PDT) + [...] [facility] | [address] | [place] [address] | | | SERVICES, CORE | [address] | | | + + + + + CBC AND AUTO DIFF - [facility] (07/15/2019 12:23 PM PDT) + + + + + + | Component | Value | Ref Range | Performed | Pathologist | | | | | At | Signature | + + + + + + | WHITE CELL | 4.64 | 3.50 - 10.80 | [facility] | | | COUNT | | K/cu mm | LABORATORY | | | | | | SERVICES, | | | | | | [facility] | | | | | | [facility] + | | | | | | HEALING | | + + + + + + | RED CELL | 3.35 (L) | 4.50 - 6.00 | [facility] [...] + + + + | HEMATOCRIT | 33.4 (L) | 41.0 - 53.0 % | [...] + + + + | MCHC | 35.0 | 32.0 - 36.0 | [facility] | | | | | g/dL | LABORATORY | | | | | | SERVICES, | | | | | | [facility] | | | | | | [facility] + | | | | | | HEALING | | + + + + + + | RDW SD | 48.3 (H) | 35.1 - 46.3 [...] + + + + | NEUTROPHIL | 55.5 | 50.0 - 70.0 % | [facility] | | | % | | | LABORATORY | | | | | | SERVICES, | | | | | | [facility] | | | | | | [facility] + | | | | | | HEALING | | + + + + + + | LYMPHOCYTE | 19.0 | 18.0 - 42.0 % | [facility] | | | % | | | LABORATORY | | | | | | SERVICES, | | | | | | [facility] | | | | | | [facility] + | | | | | | HEALING | | + + + + + + | MONOCYTE % | 8.2 | 3.5 - 9.0 % | [facility] | | | | | | LABORATORY | | | | | | SERVICES, | | | | | | [facility] | | | | | | [facility] + | | | | | | HEALING | | + + + + + + | EOS % | 16.2 (H) | 1.0 - 3.0 % | [...] + + + + | NEUTROPHIL | 2.58 | 1.80 - 7.70 | [facility] | | | # | | K/cu mm | LABORATORY | | | | | | SERVICES, | | | | | | [facility] | | | | | | [facility] + | | | | | | HEALING | | + + + + + + | NEUTROPHIL | 2.58Comment: Preliminary | 1.80 - 7.70 | [facility] [...] + + + | EOS # | 0.75 (H) | 0.00 - 0.50 | [facility] | [...] LABORATORY | [address] | [place] [address] | | | [facility] | | | | | HEALTH + HEALING | | | | + + + + + [facility] - COMPLETE METABOLIC SET (07/15/2019 12:23 PM PDT) + +---------+ + + + | Component | Value | Ref Range | Performed | Pathologist | | | | | At | Signature | + +---------+ + + + | GLUCOSE, | 98 | 70 - 99 mg/dL | [facility] [...] +---------+ + + + | CREATININE | 0.96 | 0.70 - 1.30 | [facility] | [...] | | | LABORATORY | | | SPANISH | | | SERVICES, | | | [...] +---------+ + + + | POTASSIUM, | 4.4 [...] +---------+ + + + | TOTAL | 7.2 | 6.4 - 8.2 g/dL | [facility] [...] +---------+ + + + | AST(SGOT) | 34 | <=41 U/L | [facility] | | | | | | LABORATORY | | | | | | SERVICES, | | | | | | [facility] | | | | | | HEALTH + | | | | | | HEALING | | + +---------+ + + + | ALT (SGPT) | 37 | <=60 U/L | [facility] | | [...] MDRD equation recommended by the National | [facility] | | Kidney Disease Education Program. Estimated [...] [facility] | [address] | [place] [address] | | | [facility] | | | | | HEALTH [...]
--- OUTSIDE RECORDS SUMMARY | ~2019-11-23 | XMS | Encounter Summary ---
Demographics + + + | Address | [address] | | | [place] [address] | + + + | Home Phone [...] Team Providers + +------+ + | Care Senior It Engineer Name | Role | Phone | [...] | | 2019 | | Hematologic | ADMINISTRATIVE UNDERWRITER [address] | | | | | Malignancies at [facility] | [facility] | | | | | [address] | [place] [address] | | | | | Mailcode: [place] | | | | | | for Health and | | | | | | [facility], [facility] [address] | | | | | | [place], [place] | | | | | | [address] | | | | | | [phone] | | | +--------+ + + + [...]
--- OUTSIDE RECORDS SUMMARY | ~2019-11-23 | XMS | Encounter Summary ---
Demographics + + + | Address | [address] | | | [place] [address] | + + + | Home Phone [...] Team Providers + +------+ + | Care Ball Points Inspector Name | Role | Phone | [...] | Oncology at [facility] | [address] [place], | | | | | [address] | [place] [address] | | | | | Mailcode: [place] | | | | | | [facility] and | | | | | | [facility], Building [address] | | | | | | [place], [place] | | | | | | [address] | | | | | | [phone] | | | +--------+ + + + [...] Fatigue: 2 and 3 Pain: 2 Location: [facility], recently treated for diverticulitis, states is getting [...] & remote memory intact and discharged with family/pizza delivery driver, amb ulatory and instructions have been [...] | | 07/15/19 at 1530, Pt ID: [id number], | | | | | | | Administer using a 0.2 micron | | | | | | | filter. Flush line with 15-20 mL | | | | | | | of normal saline. For | | | | | | | investigational use only, HIGH | | | | | | | ALERT MEDICATION IRB:[id number], | | | | | | | Protocol:[id number], Infuse using | | | | | | | 0.2 micron filter., | | | | | | + +---------+ +--------+-------+------+ +---+---+ | | | +---+---+ documented in this encounter"
--- OUTSIDE RECORDS SUMMARY | ~2019-11-23 | XMS | Encounter Summary ---
Demographics + + + | Address | [address] | | | [place] [address] | + + + | Home Phone [...] Team Providers + +------+ + | Care Investment Trader Name | Role | Phone | + +------+ + | Luis Leiav DO | PCP | | + +------+ [...] | | | [address] | [facility] | | | | | [address] | [place], [place] | | | | | Mailcode: [id number] | [address] | | | | | [address] [facility] | [phone] | | | | | [address] [place], [place] | | | | | | [address] | | | | | | [phone] | | | +--------+ + + + [...]
--- OUTSIDE RECORDS SUMMARY | ~2019-11-23 | XMS | Encounter Summary ---
Demographics + + + | Address | [address] | | | [place] [address] | + + + | Home Phone | | + + + | Preferred Language | Unknown | + + + | Marital Status | | + + + | Mosque Affiliation | CAT | + + + [...] Team Providers + +------+ + | Care Line Leader Name | Role | Phone | [...] | | | | lower third | [address] | Mailcode: | | | | | of esophagus | [address] | Center for | | | | | Procedures | [place], [place] | Health and | | | | | ID | [id number] | Healing, | | | | | SERVICES | Phone: | Building 2 | | | | | PROVIDED | [phone] | [place], [place] | | | | | PART OF ID | Fax: | [address] | | | | | INJ | [phone] | Phone: | | | | | [address] | | [phone] | | | | | MG Study | | Fax: | | | | | IRB: [id number] | | [phone] | | | | | Study Title: [...] | 2019 | Encounter | Oncology at [facility] | Dominick French [place], | | | | | [address] | [place] [address] | | | | | Mailcode: Center | | | | | | for Health and | | | | | | Monika [facility] 2 | | | | | | [place], [place] | | | | | | [address] | | | | | | [phone] | | | +--------+ + + + [...] | + + + + + | [facility] | [address] | [place] [address] | | | SERVICES, CORE | [address]LEY [...] + + + + + | [facility] | [address] | [place] [address] | | | SERVICES, CORE | [address]SHLEY [...] | | 02/17/19 at 1300, Pt ID: [id number]. | | | | | | | Administer using a 0.2 micron | | | | | | | filter. Flush line with 15-20 mL | | | | | | | of normal saline. For | | | | | | | investigational use only, HIGH | | | | | | | ALERT MEDICATION IRB:[id number], | | | | | | | Protocol:[id number], Infuse using | | | | | | | 0.2 micron filter., | | | | | | + +---------+ +--------+-------+------+ +---+---+ | | | +---+---+ documented in this encounter"
--- OUTSIDE RECORDS SUMMARY | ~2019-11-23 | XMS | Encounter Summary ---
Demographics + + + | Address | [address] | | | [place] [address] | + + + | Home Phone [...] Team Providers + +------+ + | Care Account Management Assistant Name | Role | Phone | + +------+ + | Christos Olivarez MD | PCP | | + +------+ + Encounter Details +--------+ + + + + | Date | Type | Department | Care Team | Description | +--------+ + + + + | 06/18/ | Telephone | Digestive Health | Eleonora Ybarra, | | | 2017 | | Center at [facility] [address] | [address] | | | | | [address] | [place], [place] | | | | | Mailcode: [place] | [address] | | | | | for Health and | [phone] | | | | | Healing, Building [address] | | | | | | [place], [place] | | | | | | [address] | | | | | | [phone] | | | +--------+ + + + [...]
--- OUTSIDE RECORDS SUMMARY | ~2019-11-23 | XMS | Encounter Summary ---
Demographics + + + | Address | [address] | | | [place] [address] | + + + | Home Phone [...] Team Providers + +------+ + | Care Catalyst Operator Chief Name | Role | Phone | [...] [address] | | | | | [address] | [place], [place] | | | | | Mailcode: [facility] | [address] | | | | | [facility] | [phone] | | | | | and Monika, | | | | | | Building | | | | | | Floor [place], [place] | | | | | | [address] | | | | | | [phone] | | | +--------+ + + + [...]
--- OUTSIDE RECORDS SUMMARY | ~2019-11-23 | XMS | Encounter Summary ---
Demographics + + + | Address | [address] | | | [place] [address] | + + + | Home Phone [...] Phone | + + +---------+ + | Maruicio Sapp | ECON | Unknown | | + + +---------+ + | Flower Sapp | ECON | Unknown | | + + +---------+ + Care Team Providers + +------+ + | Care Street Department Dispatcher Name | Role | Phone | + [...] | 2017 | Visit | Center at [facility] [address] | | | | | | [address] | | | | | | Mailcode: [place] | | | | | | for Health and | | | | | | [facility] 2 | | | | | | [place], [place] | | | | | | [address] | | | | | | [phone] | | | +--------+---------+ + + + [...]
--- OUTSIDE RECORDS SUMMARY | ~2019-11-23 | XMS | Encounter Summary ---
Demographics + + + | Address | [address] | | | [place] [address] | + + + | Home Phone [...] Team Providers + +------+ + | Care Shellfish Shucker Name | Role | Phone | + [...] | Center at [facility] [address] | MD [address] | | | | | [address] | [place], [place] | | | | | Mailcode: [place] | [address] | | | | | for Health and | [phone] | | | | | Healing, [address] | | | | | | [place], [place] | | | | | | [address] | | | | | | [phone] | | | +--------+ + + + [...]
--- OUTSIDE RECORDS SUMMARY | ~2019-11-23 | XMS | Encounter Summary ---
Demographics + + + | Address | [address] | | | [place] [address] | + + + | Home Phone [...] Team Providers + +------+ + | Care Potato Chip Fryer Name | Role | Phone | + [...] Pharmacy | | | | | | [address] | | | | | | Loop | | | | | | [address] | | | | | | [phone] | | | +--------+ + + + [...]
--- OUTSIDE RECORDS SUMMARY | ~2019-11-23 | XMS | Encounter Summary ---
Demographics + + + | Address | [address] | | | [place] [address] | + + + | Home Phone [...] Providers + +------+ + | Care Java Software Name | Role | Phone | + +------+ + | Luis Leiva DO | PCP | | + +------+ + Encounter Details +--------+ + + + + | Date | Type | Department | Care Team | Description | +--------+ + + + + | 02/20/ | Document-Sc | Health Information | Unknown . | | | 2018 | anned | Services [address] | | | | | | [address] | | | | | | Mailcode: [id number] | | | | | | [facility] | | | | | | [place], [place] | | | | | | [address] | | | | | | [phone] | | | +--------+ + + + [...]
--- OUTSIDE RECORDS SUMMARY | ~2019-11-23 | XMS | Encounter Summary ---
Demographics + + + | Address | [address] | | | [place] [address] | + + + | Home Phone [...] Providers + +------+ + | Care Special Education Para Professional Name | Role | Phone | + [...] [place] | | | | | | (FORMERLY [facility]) | [address] | | | | | | Procedures | Phone: | | | | | | CT CHEST, | [phone] | | | | | | ABDOMEN AND | Fax: | | | | | | PELVIS W IV | [phone] | | | | | | CONTRAST [...] | | | | | location | [place], [place] | | | | | | (FORMERLY [facility]) | [address] | | | | | | Procedures | Phone: | | | | | | CT CHEST, | [phone] | | | | | | ABDOMEN AND | Fax: | | | | | | PELVIS W IV | [phone] | | | | | | CONTRAST | | | + +--------+ + + + + Encounter Details +--------+ + + + + | Date | Type | Department | Care Team | Description | +--------+ + + + + | 11/27/ | Hospital | Radiology/Imaging | Marie Liz, | | | 2019 | Encounter | Lab at [facility] [address] | [address] | | | | | [address] Mailcode: | [facility] [address] | | | | | [facility] [facility] | [place] [address] | | | | | Health and Healing, | [phone] | | | | | [address] | | | | | | [place], [place] | | | | | | [address] | | | | | | [phone] | | | +--------+ + + + [...] | CT CHEST, ABDOMEN | Routin | 11/27/2018 | Malignant neoplasm | Results for this | | AND PELVIS W IV | e | 9:22 AM | of esophagus, | procedure are in the | | CONTRAST | | PST | unspecified location | [...] (OMNIPAQUE) 350 mg | IV Push | 11/27/19 | 100 mL | | | | iodine/mL injection 100 mL 100 | | 19 10:00 | | | | | mL, intravenous, ONCE, 1 dose, | | AM PST | | | | | 11/27/18 at 1000 | | | | | | + +---------+ +--------+------+------+ +---+---+ | | | +---+---+ documented in this encounter"
--- OUTSIDE RECORDS SUMMARY | ~2019-11-23 | XMS | Encounter Summary ---
Demographics + + + | Address | [address] | | | [place] [address] | + + + | Home Phone [...] Team Providers + +------+ + | Care Roundhouse Supervisor Name | Role | Phone | + +------+ + | Christos Olivarez MD | PCP | | + +------+ + Reason for Visit + + + | Reason | Comments | + + + | Refill Request | prochlorperazine 10 mg oral tablet | + + + Encounter Details +--------+--------+ + + + | Date | Type | Department | Care Team | Description | +--------+--------+ + + + | 10/06/ | Refill | Hematology/Medical | Krunal Godoy, | Refill Request | | 2019 | | Oncology at [place] | ,PhD [address] | (prochlorperazine 10 | | | | for Health & Healing | [place], [place] | mg oral tablet) | | | | [address] | [address] | | | | | Mailcode: [place] | [phone] | | | | | for Health and | | | | | | Healing, Building [address] | | | | | | [place], [place] | | | | | | [address] | | | | | | [phone] | | | +--------+--------+ + + + [...]
--- OUTSIDE RECORDS SUMMARY | ~2019-11-23 | XMS | Encounter Summary ---
Demographics + + + | Address | [address] | | | [place] [address] | + + + | Home Phone [...] Team Providers + +------+ + | Care Bias Cutter Helper Name | Role | Phone | [...] | | | | | Procedures | [place], [place] | Health and | | | | | [place] | [address] | Healing, | | | | | SERVICES | Phone: | Building 2 | | | | | PROVIDED | [phone] | [place], [place] | | | | | PART OF [place] | Fax: | [address] | | | | | INJ | [phone] | Phone: | | | | | [address] | | [phone] | | | | | MG Study | | Fax: | | | | | IRB: [id number] | | [phone] | | | | | Study Title: [...] | 09/17/ | Clinical | Laboratory at [facility] | | Lab Draw (Starter | | 2018 | Support | [address] | | Labs) | | | Staff | [place], [place] | | | | | | [address] | | | | | | [phone] | | | +--------+ + + + [...] Pt tolerated without incident. Pt discharged to [facility] ider visit. documented in this encounter Plan [...] | + + + + + | [facility] | [address] | [place] [address] | | | SERVICES, CORE | PARK [...] | + + + + + | [facility] | [address] | [place] [address] | | | SERVICES, CORE | ASHLEY [...] [facility] | [address] | [place] [address] | | | SERVICES, CORE | PARK [...] | 2018. | LABORATORY | | | [facility], | | | [facility] | | | HEALTH + | | | HEALING | + + + + + + + + | Performing | Address | City/State/Zipcode | Phone Number | | Organization | | | | + + + + + | [facility] | [address] | [place] [address] | | | SERVICES, CENTER FOR | [...] | + + + + + | [facility] | [address] | [place] [address] | | | [facility] | | | | | [...]
--- OUTSIDE RECORDS SUMMARY | ~2019-11-23 | XMS | Encounter Summary ---
Demographics + + + | Address | [address] | | | [place] [address] | + + + | Home Phone [...] Team Providers + +------+ + | Care Cultured Marble Products Maker Name | Role | Phone | [...] | [address] | [address] [facility] | | | | | lower third | Veterans | [facility] | | | | | of esophagus | [facility] | Rd | | | | | Esophagus | Road | [facility] [place] | | | | | Ca | [facility] [place] | [address] | | | | | Procedures | [address] | Phone: | | | | | Consult, | Phone: | [phone] | | | | | [address] | [phone] | Fax: | | | | | | Fax: | [phone] | | | | | | [phone] | | +--------+--------+ + + + + Encounter Details +--------+ + + + + | Date | Type | Department | Care Team | Description | +--------+ + + + + | 12/25/ | Hospital | Radiation Oncology | | | | 2017 | Encounter | at [facility] [address] | | | | | | [place] | | | | | | [id number] [facility] | | | | | | HOSPITAL [place], | | | | | | [place] [address] | | | | | | [phone] | | | +--------+ + + + [...]
--- OUTSIDE RECORDS SUMMARY | ~2019-11-23 | XMS | Encounter Summary ---
Demographics + + + | Address | [address] | | | [place] [address] | + + + | Home Phone [...] Team Providers + +------+ + | Care Tree Sapper Name | Role | Phone | + [...]
--- OUTSIDE RECORDS SUMMARY | ~2019-11-23 | XMS | Encounter Summary ---
Demographics + + + | Address | [address] | | | [place] [address] | + + + | Home Phone [...] Team Providers + +------+ + | Care Ditch Cleaner Name | Role | Phone | + [...] | | 2018 | | Oncology at [place] | [address] | | | | | for Health & Healing | Road [address] | | | | | [address] | [place] [address] | | | | | Mailcode: [place] | [phone] | | | | | for [facility] and | | | | | | Healing, [facility] 2 | | | | | | [place], [place] | | | | | | [address] | | | | | | [phone] | | | +--------+ + + + [...]
--- OUTSIDE RECORDS SUMMARY | ~2019-11-23 | XMS | Encounter Summary ---
Demographics + + + | Address | [address] | | | [place] [address] | + + + | Home Phone [...] Team Providers + +------+ + | Care Regulatory Services Consultant Name | Role | Phone | [...] | | 2019 | | Oncology at [place] | PAEva [address] [facility] | | | | | for Health & Healing | [address] | | | | | [address] | [place], [place] | | | | | Mailcode: [place] | [address] | | | | | for Health and | [phone] | | | | | Healing, [place] [address] | | | | | | [place], [place] | | | | | | [address] | | | | | | [phone] | | | +--------+--------+ + + + [...]
--- OUTSIDE RECORDS SUMMARY | ~2019-11-23 | XMS | Encounter Summary ---
Demographics + + + | Address | [address] | | | [place] [address] | + + + | Home Phone [...] Team Providers + +------+ + | Care Computer Instructor Name | Role | Phone | [...] | [address] | [address] [facility] | | | | | lower third | Veterans | [facility] | | | | | of esophagus | [facility] | Rd | | | | | Esophagus | Road | [place], [place] | | | | | Ca | [facility] [place] | [address] | | | | | Procedures | [address] | Phone: | | | | | Consult, | Phone: | [phone] | | | | | [address] | [phone] | Fax: | | | | | | Fax: | [phone] | | | | | | [phone] | | +--------+--------+ + + + + Encounter Details +--------+ + + + + | Date | Type | Department | Care Team | Description | +--------+ + + + + | 12/28/ | Hospital | Radiation Oncology | | | | 2018 | Encounter | at [facility] [address] | | | | | | [place] | | | | | | [id number] [facility] | | | | | | HOSPITAL [place], | | | | | | [place] [address] | | | | | | [phone] | | | +--------+ + + + [...]
--- OUTSIDE RECORDS SUMMARY | ~2019-11-23 | XMS | Encounter Summary ---
Demographics + + + | Address | [address] | | | [place] [address] | + + + | Home Phone [...] Team Providers + +------+ + | Care Selenium Plant Operator Name | Role | Phone | + +------+ + | Luis Leiva DO | PCP | | + +------+ + Reason for Visit + + + | Reason | Comments | + + + | Teaching session | | | with patient | | + + + Encounter Details +--------+ + + + + | Date | Type | Department | Care Team | Description | +--------+ + + + + | 12/24/ | Clinical | Radiation Oncology | NurseBill1 S | Teaching session | | 2018 | Support | at [facility] [address] | [facility] | with patient | | | Staff | [address] | [facility] [place] | | | | | [id number] [place] | [address] | | | | | [facility], | | | | | | [place] [address] | | | | | | [phone] | | | +--------+ + + + [...] documented as of this encounter Progress Notes Clementina Morgan RN - 12/24/2017 10:00 AM PSTNursing Note: Met with Jacob Sapp today to give site specific radiation treatment education. Patient is a lert, oriented, and ambulatory with stable gait, and is accompanied by his , Dudley, as w ell as their friend they are staying with, Jacklyn.. The patient lives in [place], [place], but w ill he and his will be staying with their friend Elen in [place]. They plan to melody ochoa together daily to radiation treatments. The patient is here to begin radiation treatment to the esophagus and has verified this is the correct location of the treatment. Patient oriented to clinic, treatment routine, projected length of treatment (25 fractions) , and the schedule for weekly physician visits on . A site specific radiation thera py informational packet was given and possible side effects were reviewed. Patient was encou raged to utilize [place] cream on the external skin of treatment area only if he experienc es skin irritation. Patient verbalized understanding of information discussed. Patient is receiving chemotherapy concurrently (Carbotaxol). Advanced directive was discussed with Kaelyn, and Dudley indicated [facility] and planned to complete them. 15 minutes was spent in face to face discussion and teaching with the patient during this e ncounter. Leif DANIELS) teja study labs after education session. Refer to Patient Education Report for additional documentation. documented in this e ncounter Plan of Treatment Not on filedocumented as of this encounter Visit Diagnoses + + | Diagnosis | + + | Encounter for radiotherapy - Primary Radiotherapy | + + documented in this encounter"
--- OUTSIDE RECORDS SUMMARY | ~2019-11-23 | XMS | Encounter Summary ---
Demographics + + + | Address | [address] | | | [place] [address] | + + + | Home Phone [...] Team Providers + +------+ + | Care Risk Tech Name | Role | Phone | [...] | at [facility] [address] | [address] [facility] | | | | | [place] | [address] | | | | | [id number] [facility] | [place], [place] | | | | | [facility], | [address] | | | | | [place] [address] | [phone] | | | | | [phone] | | | +--------+ + + + [...]
--- OUTSIDE RECORDS SUMMARY | ~2019-11-23 | XMS | Encounter Summary ---
Demographics + + + | Address | [address] | | | [place] [address] | + + + | Home Phone [...] Team Providers + +------+ + | Care Principal Research Economist Name | Role | Phone | + +------+ + | Christos Olivarez MD | PCP | | + +------+ + Encounter Details +--------+ + + + + | Date | Type | Department | Care Team | Description | +--------+ + + + + | 08/18/ | Documentati | Hematology/Medical | Krunal Godoy, | | | 2019 | on | Oncology at [place] | ,PhD [address] | | | | | for Health & Healing | [place], [place] | | | | | [address] | [address] | | | | | Mailcode: [place] | [phone] | | | | | for [facility] and | | | | | | [facility] 2 | | | | | | [place], [place] | | | | | | [address] | | | | | | [phone] | | | +--------+ + + + [...]
--- OUTSIDE RECORDS SUMMARY | ~2019-11-23 | XMS | Encounter Summary ---
Demographics + + + | Address | [address] | | | [place] [address] | + + + | Home Phone [...] Providers + +------+ + | Care Laborer Filter Plant Name | Role | Phone | + +------+ + | Christos Olivarez MD | PCP | | + +------+ + Encounter Details +--------+ + + + + | Date | Type | Department | Care Team | Description | +--------+ + + + + | 02/18/ | Auto Winder | Hematology/Medical | Sergio Cr, | | | 2019 | | Oncology at [place] | POOJA [address] | | | | | for Health & Healing | [address] | | | | | [address] | [place], [place] | | | | | Mailcode: [place] | [address] | | | | | for Health and | [phone] | | | | | [facility] 2 | | | | | | [place], [place] | | | | | | [address] | | | | | | [phone] | | | +--------+ + + + [...]
--- OUTSIDE RECORDS SUMMARY | ~2019-11-23 | XMS | Encounter Summary ---
Demographics + + + | Address | [address] | | | [place] [address] | + + + | Home Phone | | + + + | Preferred Language | Unknown | + + + | Marital Status | | + + + | Buddhism Affiliation | CAT | + + + | Race | White | + + + | Ethnic Group | Not or | + + + Author + + + | Author | [facility] | + + + | Organization | [facility] | + + + | Address | [...] Team Providers + +------+ + | Care Interior Design Assistant Name | Role | Phone | [...] | Oncology at [facility] | [address] [place], | | | | | [address] | [place] [address] | | | | | Mailcode: Center | | | | | | for Health and | | | | | | Healing, Building [address] | | | | | | [place], [place] | | | | | | [address] | | | | | | [phone] | | | +--------+ + + + [...] [facility] | [address] | [place] [address] | | | [place] | [address] | | | + + + + + documented in this encounter Visit Diagnoses + + | Diagnosis | + + | Malignant neoplasm of lower third of esophagus (HCC) Malignant neoplasm of lower | | third of esophagus | + + documented in this encounter"
--- OUTSIDE RECORDS SUMMARY | ~2019-11-23 | XMS | Encounter Summary ---
Demographics + + + | Address | [address] | | | [place] [address] | + + + | Home Phone [...] Team Providers + +------+ + | Care French Professor Name | Role | Phone | + [...] | | | | | Procedures | [place], [place] | Health and | | | | | [place] | [address] | Healing, | | | | | SERVICES | Phone: | Building [address] | | | | | PROVIDED | [phone] | [place], [place] | | | | | PART OF [place] | Fax: | [phone] | | | | | INJ | [phone] | Phone: | | | | | NIVOLUMAB 1 | | [phone] | | | | | MG [place] EST | | Fax: | | | | | PATIENT | | [phone] | | | | | LEVEL V | | | | | | | Study IRB: | | | | | | | [id number] Study | | | | | | [...] Description | +--------+---------+ + + + | 02/17/ | Office | Hematology/Medical | Sergio Cr, | Malignant neoplasm | | 2019 | Visit | Oncology at [place] | [facility] [address] | of lower third of | | | | [facility] | [address] [facility] [address] | esophagus (HCC) | | | | [address] | [place], [place] | (Primary Dx); | | | | Mailcode: [place] | [address] | Clinical trial exam; | | | | [facility] and | [phone] | Fatigue, | | | | Healing, [facility] 2 | | unspecified type; | | | | [place], [place] | | Nausea; Urinary | | | | [address] | | retention | | | | [phone] | | | +--------+---------+ + + + [...] Instructions Patient Instructions Sergio Cr PA-C - 02/17/2019 11:40 AM PDTMr. Sapp, It was good to see you today. [...] clinic hours please call the clinic at [phone]. Evenings, weekends and holidays please call [phone] and ask to have the oncologist track production engineer paged. documented in this encounter Progress Notes Sergio Cr PA-C - 02/17/2019 11:40 AM PDT Oncology Assessment: Cancer Staging Malignant [...] no response, score 3) - 07/31/2018 [facility] Medical oncology evaluation- offered enrollment on [...] clinic visit, he continues on study. He had a restaging CT today that showed no new recurrent disease. He reports that he has had increased energy and appetite in the l ast few months. He has gained weight, up around 20 lbs from the beginning of the year. He butt s ongoing stable abdominal pain. He reports post-infusion fatigue (for ~5 days) and intermit tent mild nausea, improved significantly since starting olanzapine. He reports recent night sweats, says they happen around 2x a week and started in November 2018. 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 He does not feel ready to do this yet, he says that he will need a note from clinic to approve his return to work, when he is ready. He says that he was diagnosed with thrush by PCP last week after reporting a sore throat. On 02/07/19, he started a 6 day course of Diflucan, whic h resolved his symptoms. Current Outpatient Prescriptions Medication Sig atorvastatin calcium [...] reviewed, see scanned document Physical Examination: BP (!) 136/91 (BP Location: Left upper arm, Patient Position: Sitting) | Pulse 62 | Temp 36.6 C (97.9 F) (Oral) | Resp 16 | Wt 75.3 kg (166 lb) | SpO2 99% | BMI 25.24 kg/m | BSA 1.9 m General: Well developed, well nourished, adult [...] Labs: Lab Results Component Value Date NA 138 02/17/2019 K 3.6 02/17/2019 CL 105 02/17/2019 BICARB 32 02/17/2019 BUN 7 02/17/2019 CR 0.70 02/17/2019 GLU 70 02/17/2019 CA 9.0 02/17/2019 AST 71 02/17/2019 ALT 62 02/17/2019 AP 89 02/17/2019 TBILI 0.5 02/17/2019 TP 6.9 02/17/2019 ALB 3.3 02/17/2019 Lab Results Component Value Date WBC 4.41 02/17/2019 HB 10.8 02/17/2019 HCT 32.1 02/17/2019 PLT 196 02/17/2019 MCV 100.0 02/17/2019 RDW 47.0 02/17/2019 Imaging: No new imaging to review Plan/ [...] controlled with Olanzapine - Proceed with Cycle 11 Nivolumab/placebo today (02/17/2019), monitor closely for toxicities - liver enzymes stabilized after previously increasing in recent cycles, continue to monito r closely, pt clinically asymptomatic 2. Abd pain: ongoing, stable - s/p recent antibiotics for diverticulitis - remains afebrile, normal wbc - no concerning findings on recent CT scan, some indeterminate omental nodularity which nee ds to be followed 3. Low appetite (Resolved). Intermittent, however significantly [...] Note: Mr. Jacob Sapp presents today for C11D1 nivolumab vs placebo after signing consent to partici rivers in [id number]: A Randomized, Multicenter, Double Blind, Phase III Study of Adjuvant Nivo lumab or Placebo in Subjects with Resected Lower Esophageal, or Gastroesophageal Junction Ca ncer (CheckMate 577: CHECKpoint pathway and nivoluMab clinical Trial Evaluation 577). OF NOTE: Prohibited medications: Labs were reviewed: yes ECO Accompanied today by: Baseline stool count: Baseline neuropathy: none Baseline weight: 70.2 kg IV access: PIV RD/SW referral: t rail turner at [place] established Multi-D MD: Chemotherapy teaching: done per chemo binder and ICF My Chart access: active and encouraged Patient reports that neoadjuvant chemo was completed at [place] in [place]. Radiation completed at [facility]. He reports the following medical and surgical history at baseline: Past Medical History: Diagnosis Date Cervical spinal stenosis 1997 Coronary artery disease 2007 diagnosed on angiogram when experienced chest pain - treated with medications, pain attr ibuted to esophageal spasm, never had MA or stent H/O Diverticulosis 1997 Hernia, hiatal, [...] Pain (LLQ) 1 10/09/18 Anorexia 1 10/09/18 01/22/19 Infections and Infestations- other (Diverticulitis) 2 10/09/18 10/19/18-intermittent ongoi ng, stop date 11/27/18 Night sweats 1 12/10/18 Thrush 2 02/07/19 02/13/19 New On Study Medications Medication dose route [...] Prochlorperazine 10mg PO Q6hrs PRN nausea 12/10/18 Fluconazole UNK PO daily thrush 02/07/19 02/13/19 Sergio Cr PA-C HEMATOLOGY/MEDICAL ONCOLOGY AT [address] Mailcode: [place] [phone] documented in this encounter Plan of Treatment Not on filedocumented as of this encounter Procedures + +--------+ + + + | Procedure Name | Priori | Date/Time | Associated Diagnosis | Comments | | | ty | | | | + +--------+ + + + | ADMINISTER | Routin | 02/17/2019 | | | | CHEMOTHERAPY PER | e | 12:19 PM | | | | TREATMENT PARAMETERS [...] in clinical trial | + + | Fatigue, unspecified type | + + | Nausea Nausea alone | + + | Urinary retention Retention of urine, unspecified | + + documented in this encounter"
--- OUTSIDE RECORDS SUMMARY | ~2019-11-23 | XMS | Encounter Summary ---
Demographics + + + | Address | [address] | | | [place] [address] | + + + | Home Phone [...] Team Providers + +------+ + | Care Exchange Specialist Name | Role | Phone | + +------+ + | Christos Olivarez MD | PCP | | + +------+ + Encounter Details +--------+ + + + + | Date | Type | Department | Care Team | Description | +--------+ + + + + | 07/11/ | Education Department Registrar | Hematology | Berna Rodriguez | Malignant neoplasm | | 2019 | | Oncology Study 3303 | [address] | of lower third of | | | | [address] | Ashley French [place], | esophagus (HCC) | | | | Mailcode: CH7[facility] | [place] [address] | (Primary Dx) | | | | [facility] | | | | | | and Monika, | | | | | | [facility] | | | | | | [place], [place] | | | | | | [address] | | | | | | [phone] | | | +--------+ + + + [...] | + + + + + | [facility] | [address] | [place] [address] | | | SERVICES, CORE | PARK [...] [facility] | [address] | [place] [address] | | | SERVICES, CORE | [address] [...] | + + + + + | [facility] | [address] | [place] [address] | | | SERVICES, CORE | [address] | | | + + + + + documented in this encounter Visit Diagnoses + + | Diagnosis | + + | 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
--- OUTSIDE RECORDS SUMMARY | ~2019-11-23 | XMS | Encounter Summary ---
Demographics + + + | Address | [address] | | | [place] [address] | + + + | Home Phone [...] Team Providers + +------+ + | Care Solderer Assembler Name | Role | Phone | [...] | [address] | [address] [facility] | | | | | lower third | Veterans | [facility] | | | | | of esophagus | [facility] | Rd | | | | | Esophagus | Road | [facility] [place] | | | | | Ca | [facility] [place] | [address] | | | | | Procedures | [address] | Phone: | | | | | Consult, | Phone: | [phone] | | | | | Sage Wilkins | [phone] | Fax: | | | | | | Fax: | [phone] | | | | | | [phone] | | +--------+--------+ + + + + Encounter Details +--------+ + + + + | Date | Type | Department | Care Team | Description | +--------+ + + + + | 01/03/ | Hospital | Radiation Oncology | | | | 2018 | Encounter | at [facility] [address] | | | | | | [place] | | | | | | [facility] | | | | | | HOSPITAL [place], | | | | | | [place] [address] | | | | | | [phone] | | | +--------+ + + + [...]
--- OUTSIDE RECORDS SUMMARY | ~2019-11-23 | XMS | Encounter Summary ---
Demographics + + + | Address | [address] | | | [place] [address] | + + + | Home Phone [...] Team Providers + +------+ + | Care Spool Hauler Name | Role | Phone | + [...]
--- OUTSIDE RECORDS SUMMARY | ~2019-11-23 | XMS | Encounter Summary ---
Demographics + + + | Address | [address] | | | [place] [address] | + + + | Home Phone [...] Team Providers + +------+ + | Care Kindergarten Teacher Assistant Name | Role | Phone | + +------+ + | Christos Olivarez MD | PCP | | + +------+ + Encounter Details +--------+ + + + + | Date | Type | Department | Care Team | Description | +--------+ + + + + | 05/21/ | Professor Of Journalism | Cancer Genetics at | Daniel Barrera, | Malignant neoplasm | | 2019 | | [facility] | [address] | of esophagus, | | | | [address] | [address] | unspecified location | | | | [facility] | [place], [place] | (HCC) (Primary Dx) | | | | and Healing, | [address] | | | | | Building [address] | [phone] | | | | | [place], [place] | | | | | | [address] | | | | | | [phone] | | | +--------+ + + + [...] filedocumented as of this encounter Results RESEARCH ADDITIONAL TUBES (06/17/2019 10:01 AM PDT) [...] [facility] | [address] | [place] [address] | | | SERVICES, CORE | [address] | | | + + + + + documented in this encounter Visit Diagnoses + + | Diagnosis | + + | Malignant neoplasm of esophagus, unspecified location (HCC) - Primary | + + documented in this encounter"
--- OUTSIDE RECORDS SUMMARY | ~2019-11-23 | XMS | Encounter Summary ---
Demographics + + + | Address | [address] | | | [place] [address] | + + + | Home Phone [...] Team Providers + +------+ + | Care Credit Rating Inspector Name | Role | Phone | + +------+ + | Christos Olivarez MD | PCP | | + +------+ + Encounter Details +--------+ + + + + | Date | Type | Department | Care Team | Description | +--------+ + + + + | 03/20/ | Director Of Valuation | Hematology | Krunal Godoy, | Malignant neoplasm | | 2019 | | Oncology Study [address] | ,PhD [address] | of lower third of | | | | [address] | [place], [place] | esophagus (HCC) | | | | Mailcode: CH7[facility] | [address] | (Primary Dx) | | | | [facility] | [phone] | | | | | and Monika, | | | | | | [facility] | | | | | | [place], [place] | | | | | | [address] | | | | | | [phone] | | | +--------+ + + + [...] + + + + + | [facility] | [address] | [place] [address] | | | SERVICES, CORE | PARK [...] [facility] | [address] | [place] [address] | | | SERVICES, CORE | PARK [...] + + + + + | [facility] | [address] | [place] [address] | | | SERVICES, CORE | [address] | | | + + + + + [facility] - COMPLETE METABOLIC SET (03/26/2019 9:55 [...] [facility] | [address] | [place] [address] | | | [facility] | | [...]
--- OUTSIDE RECORDS SUMMARY | ~2019-11-23 | XMS | Encounter Summary ---
Demographics + + + | Address | [address] | | | [place] [address] | + + + | Home Phone [...] Team Providers + +------+ + | Care Vision Impaired Teacher Name | Role | Phone | + +------+ + | Christos Olivarez MD | PCP | | + +------+ + Encounter Details +--------+ + + + + | Date | Type | Department | Care Team | Description | +--------+ + + + + | 05/19/ | Preformer [employer] | Hematology/Medical | Krunal Godoy, | | | 2019 | | [facility]cology at [place] | ,PhD [address] | | | | | for Health & Healing | [place], [place] | | | | | [address] | [address] | | | | | Mailcode: [place] | [phone] | | | | | for Health and | | | | | | [facility] 2 | | | | | | [place], [place] | | | | | | [address] | | | | | | [phone] | | | +--------+ + + + [...]
--- OUTSIDE RECORDS SUMMARY | ~2019-11-23 | XMS | Encounter Summary ---
Demographics + + + | Address | [address] | | | [place] [address] | + + + | Home Phone [...] Team Providers + +------+ + | Care Welt Edge Rounder Name | Role | Phone | + +------+ + | Christos Olivarez MD | PCP | | + +------+ + Encounter Details +--------+ + + + + | Date | Type | Department | Care Team | Description | +--------+ + + + + | 05/21/ | Pharmacy | Outpatient Retail | | | | 2017 | Visit | [facility] | | | | | | [address] | | | | | | [place], [place] | | | | | | [address] | | | | | | [phone] | | | +--------+ + + + [...]
--- OUTSIDE RECORDS SUMMARY | ~2019-11-23 | XMS | Encounter Summary ---
Demographics + + + | Address | [address] | | | [place] [address] | + + + | Home Phone [...] Providers + +------+ + | Care Metal Casket Assembler Name | Role | Phone | [...] + + + + | 08/13/ | Clinical | Laboratory at [facility] | | Lab Draw | | 2019 | Support | [address] | | | | | Staff | [place], [place] | | | | | | [address] | | | | | | [phone] | | | +--------+ + + + [...] documented as of this encounter Progress Notes Ramona Ferreira RN - 08/13/2019 2:40 PM PDTPt ambulated into 1st floor lab with 20 gauge PIV in right AC from CT earlier today. PIV with excellent blood return. Labs drawn and sent , including study lab sent to PK lab. PIV flushed with 10 mL NS without any problems. Patien t tolerated procedure well. documented in this e ncounter Plan of Treatment Not on filedocumented as of this encounter Procedures + +--------+ + + + | Procedure Name | Priori | Date/Time | Associated Diagnosis | Comments | | | ty | | | | + +--------+ + + + | CBC AND AUTO DIFF - | Routin | 08/13/2019 | Malignant neoplasm | Results for this | | [facility] | e | 2:28 PM | of lower third of | procedure are in the | | | | PDT | esophagus (HCC) | results section. | + +--------+ + + + | COMPLETE METABOLIC | Routin | 08/13/2019 | Malignant neoplasm | Results for this | | PANEL - OLP | e | 2:28 PM | of lower third of | procedure are in the | | | | PDT | esophagus (HCC) | results section. | + +--------+ + + + | CBC WITH AUTO DIFF - | Routin | 08/13/2019 | Malignant neoplasm | Results for this | | OLP | e | 2:28 PM | of lower third of | procedure are in the | | | | PDT | esophagus (HCC) | results section. | + +--------+ + + + | [facility] - COMPLETE | Routin | 08/13/2019 | Malignant neoplasm | Results for this | | METABOLIC SET | e | 2:28 PM | of lower third of | procedure are in the | | | | PDT | esophagus (HCC) | results section. | + +--------+ + + + | LIPASE, PLASMA | Routin | 08/13/2019 | Malignant neoplasm | Results for this | | | e | 2:28 PM | of lower third of | procedure are in the | | | | PDT | esophagus (HCC) | results section. | + +--------+ + + + | LDH TOTAL, PLASMA | Routin | 08/13/2019 | Malignant neoplasm | Results for this | | | e | 2:28 PM | of lower third of | procedure are in the | | | | PDT | esophagus (HCC) | results section. | + +--------+ + + + | AMYLASE, PLASMA | Routin | 08/13/2019 | Malignant neoplasm | Results for this | | | e | 2:28 PM | of lower third of | procedure are in the | | | | PDT | esophagus (HCC) | results section. | + +--------+ + + + | RESEARCH ADDITIONAL | Routin | 08/13/2019 | Malignant neoplasm | Results for this | | TUBES | e | 2:27 PM | of lower third of | procedure are in the | | | | PDT | esophagus (HCC) | results section. | + +--------+ + + + documented in this encounter Results LDH TOTAL, PLASMA (08/13/2019 2:28 PM PDT) [...] | + + + + + | [facility] | [address] | [place] [address] | | | [place] | [address] [...] + + + + + | [facility] | [address] | [place] [address] | | | SERVICES, CORE | [address] | | | + + + + + LIPASE, PLASMA (08/13/2019 2:28 PM PDT) + +--------+ + + + | Component | Value | Ref Range | Performed | Pathologist | | | | | At | Signature | + +--------+ + + + | LIPASE | 53 (L) | 152 - 353 U/L | [facility] | | | (LAB) | | | [...] + + + + + | [facility] [employer] | [address] | [place] [address] | | | SERVICES, CORE | [address] | | | + + + + + CBC AND AUTO DIFF - [facility] (08/13/2019 2:28 PM PDT) + + + + + + | Component | Value | Ref Range | Performed | Pathologist | | | | | At | Signature | + + + + + + | WHITE CELL | 4.90 | 3.50 - 10.80 | [facility] | | | COUNT | | K/cu mm | LABORATORY | | | | | | SERVICES, | | | | | | [facility] + | | | | | | HEALING | | + + + + + + | RED CELL | 3.32 (L) | 4.50 - 6.00 | [facility] | | | COUNT | | M/cu mm | LABORATORY | | | | | | SERVICES, | | | | | | [facility] | | [facility] + | | | | | | HEALING | | + + + + + + | HEMOGLOBIN | 11.3 (L) | 13.5 - 17.5 | [facility] | | | | | g/dL | LABORATORY | | | | | | SERVICES, | | | | | | [facility] | | | [facility] + | | | | | | HEALING | | + + + + + + | HEMATOCRIT | 33.5 (L) | 41.0 - 53.0 % | [facility] | | | | | | LABORATORY | | | | | | SERVICES, | | | | | | [facility] | | | [facility] + | | | | | | HEALING | | + + + + + + | MCV | 100.9 (H) | 80.0 - 100.0 fL | [...] + + + + | PLATELET | 166 | 150 - 400 K/cu | [facility] [...] + + + + | NEUTROPHIL | 64.1 | 50.0 - 70.0 % | [facility] | | | % | | | LABORATORY | | | | | | SERVICES, | | | | | | [facility] | | | | | | [facility] + | | | | | | HEALING | | + + + + + + | LYMPHOCYTE | 24.9 | 18.0 - 42.0 % | [facility] | | | % | | | LABORATORY | | | | | | SERVICES, | | | | | | [facility] | | | | | | [facility] + | | | | | | HEALING | | + + + + + + | MONOCYTE % | 5.7 | 3.5 - 9.0 % | [facility] | | | | | | LABORATORY | | | | | | SERVICES, | | | | | | [facility] | | | | | | [facility] + | | | | | | HEALING | | + + + + + + | EOS % | 4.5 (H) | 1.0 - 3.0 % | [...] + + + + | NEUTROPHIL | 3.14 | 1.80 - 7.70 | [facility] | | | # | | K/cu mm | LABORATORY | | | | | | SERVICES, | | | | | | [facility] | [facility] | | | [facility] + | | | | | | HEALING | | + + + + + + | NEUTROPHIL | 3.14Comment: Preliminary | 1.80 - 7.70 | [facility] [...] + + + + | LYMPHOCYTE | 1.22 | 1.00 - 4.80 | [facility] | | | # | | K/cu mm | LABORATORY | | | | | | SERVICES, | | | | | | [facility] | | | | | [facility] + | | | | | | HEALING | | + + + + + + | MONOCYTE # | 0.28 | 0.10 - 0.90 | [facility] | | | | | K/cu mm | LABORATORY | | | | | | SERVICES, | | | | | | [facility] | | | | | | [facility] + | | | | | | HEALING | | + + + + + + | EOS # | 0.22 | 0.00 - 0.50 | [facility] | [...] | included in the neutrophil count. | [facility] | | | HEALTH + | | | HEALING | + + + + + + + + | Performing | Address | City/State/Zipcode | Phone Number | | Organization | | | | + + + + + | [facility] | [address] | [place] [address] | | | [facility] | | | | | HEALTH + HEALING | | | | + + + + + [facility] - COMPLETE METABOLIC SET (08/13/2019 2:28 PM PDT) + +---------+ + + + | Component | Value | Ref Range | Performed | Pathologist | | | | | At | Signature | + +---------+ + + + | GLUCOSE, | 101 (H) | 70 - 99 mg/dL | [...] +---------+ + + + | CREATININE | 0.87 | 0.70 - 1.30 | [facility] | [...] | | | LABORATORY | | | [place] | | | SERVICES, | | | [...] +---------+ + + + | POTASSIUM, | 4.2 | 3.4 - 5.0 | [facility] | [...] +---------+ + + + | CALCIUM, | 8.8 | 8.6 - 10.2 | [facility] | [...] + + | TOTAL | 6.9 | 6.4 - 8.2 g/dL | [facility] [...] + + + | ALK PHOS | 74 | 56 - 119 U/L | [facility] | | | | | | LABORATORY | | | | | | SERVICES, | | | | | | [facility] | | | | | | [facility] + | | | | | | HEALING | | + +---------+ + + + | AST(SGOT) | 24 | <=41 U/L | [facility] | | | | | | LABORATORY | | | | | | SERVICES, | | | | | | [facility] | | | | [facility] + | | | | | | HEALING | | + +---------+ + + + | ALT (SGPT) | 33 | <=60 U/L | [facility] | | [...] MDRD equation recommended by the National | INSU | | Kidney Disease Education Program. Estimated [...] | + + + + + | Mobile [facility] | [address] | [place] [address] | | | SERVICES, [place] [facility] | | | | | HEALTH [...] [facility] | [address] | [place] [address] | | | SERVICES, CORE | [address] | | | + + + + + documented in this encounter Visit Diagnoses + + | Diagnosis | + + | 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
--- OUTSIDE RECORDS SUMMARY | ~2019-11-23 | XMS | Encounter Summary ---
Demographics + + + | Address | [address] | | | [place] [address] | + + + | Home Phone [...] Team Providers + +------+ + | Care Guest Service Representative Name | Role | Phone | + +------+ + | Christos Olivarez MD | PCP | | + +------+ + Encounter Details +--------+ + + + + | Date | Type | Department | Care Team | Description | +--------+ + + + + | 02/16/ | Lcsw | Hematology/Medical | Krunal Godoy, | | | 2019 | | Oncology at [place] | ,PhD [address] | | | | | for Health & Healing | [place], [place] | | | | | [address] | [address] | | | | | Mailcode: [place] | [phone] | | | | | for Health and | | | | | | [facility], [facility] [address] | | | | | | [place], [place] | | | | | | [address] | | | | | | [phone] | | | +--------+ + + + [...]
--- OUTSIDE RECORDS SUMMARY | ~2019-11-23 | XMS | Encounter Summary ---
Demographics + + + | Address | [address] | | | [place] [address] | + + + | Home Phone [...] Team Providers + +------+ + | Care Health Facilities Surveyor Name | Role | Phone | + [...] | (Primary Dx) | | | | [facility] 4th Floor [address] | | | | | | [address] | | | | | | Mailcode: [facility] | | | | | | [facility] | | | | | | and Healing, | | | | | | Building 1,4th Floor | | | | | | [place], [place] | | | | | | [address] | | | | | | [phone] | | | +--------+---------+ + + + [...] your procedure. Surgery check-in location: Admitting - [facility], ninth floor lobby Surgery Check in Time: [...] it is after office hours, call the [facility] data processing operator at [phone] and ask them to page him or [...] Denies CP, palpitations, presyncope, syncope. Activity: mows 57o203 yd lawn with a push mower. Prior [...] attrib uted to esophageal spasm, never had MO or stent Diverticulosis GERD without esophagitis Hernia, [...] with ejection fraction of 70%. CONCLUSION/RECOMMENDATIONS 1. Pmse-qo-pggyibfe 2-vessel coronary artery disease except for a [...] to this patient's care. GODFREY TENA NP [facility] PREOPER[facility]IVE [facility] AT [facility] 4TH FLOOR [address] [facility] [phone] documented in this encou nter Plan of Treatment + + +--------+ + + | Name | Type | Priori | Associated Diagnoses | Order Schedule | | | | ty | | | + + +--------+ + + | COMMUNICATION TO [facility] | Procedures | Routin | Preop [...] | + + + + + | [employer] [facility] | [address] | [place] [address] | | | SERVICES, | [address] [...] [facility] | [address] | [place] [address] | | | SERVICES, | [address] [...] + | [facility] | [address] [facility] | [place], [place] | | | CARDIOLOGY | [address] | [address] | | + + + + + [...] | + + + + + | [facility] | [address] [facility] | [place] [address] | | | SERVICES, CORE | [address] [...] + + | [facility] | [address] | [place] [address] | | | SERVICES, CORE | [address] | | | + + + + + documented in this encounter Visit Diagnoses + + | Diagnosis | + + | Preop examination - Primary Preoperative examination, unspecified | + + documented in this encounter
--- OUTSIDE RECORDS SUMMARY | ~2019-11-23 | XMS | Encounter Summary ---
Demographics + + + | Address | [address] | | | [place] [address] | + + + | Home Phone [...] Providers + +------+ + | Care Metal Furniture Polisher Name | Role | Phone | + [...] | Oncology at [facility] | [address] [place], | | | | | [address] | [place] [address] | | | | | Mailcode: [place] | | | | | | for Health and | | | | | | 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 Refer to MAR and [...] | | 10/15/18 at 0915, Pt ID: [id number], | | | | | | | Administer using a 0.2 micron | | | | | | | filter. Flush line with 15-20 mL | | | | | | | of normal saline. For | | | | | | | investigational use only, HIGH | | | | | | | ALERT MEDICATION IRB:[id number], | | | | | | | Protocol:[id number], Infuse using | | | | | [...]
--- OUTSIDE RECORDS SUMMARY | ~2019-11-23 | XMS | Encounter Summary ---
Demographics + + + | Address | [address] | | | [place] [address] | + + + | Home Phone [...] Team Providers + +------+ + | Care Certified Master Locksmith Name | Role | Phone | + [...] | Oncology at [facility] | [address] [place], | | | | | [address] | [place] [address] | | | | | Mailcode: [place] | | | | | | [facility] and | | | | | | Healing, Building 2 | | | | | | [place], [place] | | | | | | [address] | | | | | | [phone] | | | +--------+ + + + [...]
--- OUTSIDE RECORDS SUMMARY | ~2019-11-23 | XMS | Encounter Summary ---
Demographics + + + | Address | [address] | | | [place] [address] | + + + | Home Phone [...] Team Providers + +------+ + | Care Colleter Name | Role | Phone | + +------+ + | Christos Olivarez MD | PCP | | + +------+ + Encounter Details +--------+ + + + + | Date | Type | Department | Care Team | Description | +--------+ + + + + | 11/27/ | Document-Sc | UNKNOWN DEPARTMENT | Unknown . | | | 2018 | anned | [address] | | | | | | [address] | | | | | | [place], [place] | | | | | | [address] | | | +--------+ + + + [...]
--- OUTSIDE RECORDS SUMMARY | ~2019-11-23 | XMS | Encounter Summary ---
Demographics + + + | Address | [address] | | | [place] [address] | + + + | Home Phone [...] Team Providers + +------+ + | Care Net Lead Developer Name | Role | Phone | [...] | | | | lower third | [address] | Mailcode: | | | | | of esophagus | [address] | Center for | | | | | Procedures | [place], [place] | Health and | | | | | [place] | [address] | Healing, | | | | | SERVICES | Phone: | Building 2 | | | | | PROVIDED | [phone] | [place], [place] | | | | | PART OF [place] | Fax: | [address] | | | | | INJ | [phone] | Phone: | | | | | NIVOLUMAB 1 | | [phone] | | | | | MG IN EST | | Fax: | | | | | PATIENT | | [phone] | | | | | LEVEL V | | | | | | | Study IRB: | | | | | | | 11334 Study | | | | | | [...] | 2019 | Visit | [facility] | [address] | of lower third of | | | | for Health & Healing | [address] | esophagus (HCC) | | | | [address] | [place], [place] | (Primary Dx); | | | | Mailcode: [place] | [address] | Clinical trial exam; | | | | for [employer] and | [phone] | Nausea | | | | Healing, [facility] 2 | | | | | | [place], [place] | | | | | | [address] | | | | | | [phone] | | | +--------+---------+ + + + [...] or no response, score 3) - 07/31/2018 [facility] Medical oncology evaluation- offered enrollment on [...] to review Yun Ronquillo M.S., PADerrellC Physician Diesel Mechanic Construction Medical Oncology Pager [phone] Kerrie Monahan RN - 12/10/2018 3:10 PM PST Research RN Note: Mr. Jacob Sapp presents today for C8D1 nivolumab vs placebo after signing consent to particip ate in EL151-118: A Randomized, Multicenter, Double Blind, Phase III [...] 70.2 kg IV access: PIV RD/SW referral: medical staff credentialing coordinator at [facility] established Multi-D MD: Chemotherapy teaching: done per chemo binder and [facility] My Chart access: active and encouraged Patient reports that neoadjuvant chemo was completed at [facility] in [place], [place]. Radiation completed at [facility]. He reports the following medical and [...]
--- OUTSIDE RECORDS SUMMARY | ~2019-11-23 | XMS | Encounter Summary ---
Demographics + + + | Address | [address] | | | [place] [address] | + + + | Home Phone [...] Team Providers + +------+ + | Care Neon Light Installer Name | Role | Phone | + [...]
--- OUTSIDE RECORDS SUMMARY | ~2019-11-23 | XMS | Encounter Summary ---
Demographics + + + | Address | [address] | | | [place] [address] | + + + | Home Phone | | + + + | Preferred Language | Unknown | + + + | Marital Status | | + + + | Advent Affiliation | CAT | + + + [...] Team Providers + +------+ + | Care Customs Opener Verifier Packer Name | Role | Phone | [...]
--- OUTSIDE RECORDS SUMMARY | ~2019-11-23 | XMS | Encounter Summary ---
Demographics + + + | Address | [address] | | | [place] [address] | + + + | Home Phone [...] Providers + +------+ + | Care Metal Crafts Teacher Name | Role | Phone | [...] | | of esophagus | Hospital | [facility] | | | | | | Road | Health and | | | | | | [place], [place] | Healing, | | | | | | [address] | Building 2 | | | | | | Phone: | [place], [place] | | | | | | [phone] | [address] | | | | | | Fax: | Phone: | | | | | | [phone] | [phone] | | | | | | | Fax: | | | | | | | [phone] | + +--------+ + + + + Encounter Details +--------+---------+ + + + | Date | Type | Department | Care Team | Description | +--------+---------+ + + + | 06/07/ | Office | [facility] | Eleonora Ybarra, | Primary | | 2018 | Visit | Center at [facility] [address] | MD [address] | adenocarcinoma of | | | | [address] | Ave [place], [place] | distal third of | | | | Mailcode: Center | [address] | esophagus (HCC) | | | | for Health and | [phone] | (Primary Dx) | | | | [facility], 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
--- OUTSIDE RECORDS SUMMARY | ~2019-11-23 | XMS | Encounter Summary ---
Demographics + + + | Address | [address] | | | [place] [address] | + + + | Home Phone [...] Team Providers + +------+ + | Care Intensive Care Nurse Name | Role | Phone | [...] [place] | radiotherapy | | | | [address] | [address] | (Primary Dx) | | | | [id number] [facility] | [place], [place] | | | | | [facility], | [address] | | | | | [place] [address] | [phone] | | | | | [phone] | | | +--------+---------+ + + + [...] DANIEL BARRERA MD Dept of Radiation Medicine [facility] [place] ony Lopez - 01/17/2018 3:30 PM PST Radiation Oncology - On Treatment Visit Note ID: [id number] y.o. male with [id number] esophageal adenocarcinoma (7 LN) 36-44cm from the [...] RT. CONY LOPEZ Dept of Radiation Medicine [facility] April Stacy MA - 1:41 [...]
--- OUTSIDE RECORDS SUMMARY | ~2019-11-23 | XMS | Encounter Summary ---
Demographics + + + | Address | [address] | | | [place] [address] | + + + | Home Phone | | + + + | Preferred Language | Unknown | + + + | Marital Status | | + + + | Pentecostal Affiliation | CAT | + + + [...] Team Providers + +------+ + | Care Ride Attendant Name | Role | Phone | [...] | | | | | ([facility]) | [address] | | | | | | Procedures | Phone: | | | | | | CT CHEST, | [phone] | | | | | | ABDOMEN AND | Fax: | | | | | | PELVIS W IV | [phone] | | | | | | CONTRAST [...] | | | | | location | [place], [place] | | | | | | ([facility]) | [address] | | | | | | Procedures | Phone: | | | | | | CT CHEST, | [phone] | | | | | | ABDOMEN AND | Fax: | | | | | | PELVIS W IV | [phone] | | | | | | CONTRAST | | | + +--------+ + + + + Encounter Details +--------+ + + + + | Date | Type | Department | Care Team | Description | +--------+ + + + + | 11/27/ | Hospital | Radiology/Imaging | Marie Liz, | | | 2019 | Encounter | Lab at [facility] [address] | [address] | | | | | [place] Mailcode: | [facility] [address] | | | | | [facility] | [place] [address] | | | | | Health and Healing, | [phone] | | | | | [address] | | | | | | [place], [place] | | | | | | [address] | | | | | | [phone] | | | +--------+ + + + [...]
--- OUTSIDE RECORDS SUMMARY | ~2019-11-23 | XMS | Encounter Summary ---
Demographics + + + | Address | [address] | | | [place] [address] | + + + | Home Phone | | + + + | Preferred Language | Unknown | + + + | Marital Status | | + + + | Confucianist Affiliation | 1041 | + + + | Race | Unknown | + + + | Ethnic Group | Unknown | + + + Author + + + | Author | [facility] | | | and [place] | + + + | Organization | [facility] | | | and [...] Team Providers + +------+ + | Care Fat Purification Worker Name | Role | Phone | + +------+ + PCP | Unavailable | + +------+ + Encounter Details +--------+ + + + + | Date | Type | Department | Care Team | Description | +--------+ + + + + | 08/12/ | Hospital | [facility] | Jimi Jorge | Coronary | | 2007 | Encounter | [facility]UTE | [address] [facility] | Atherosclerosis of | | | | CARE FLOOR [address] | [address] [place], [place] | [place] | | | | [address] | [id number] | Artery | | | | [place], [place] | | | | | | [address] | | | | | | [phone] | | | +--------+ + + + [...] + | Diagnosis | + + | Coronary atherosclerosis of chinik coronary artery | + + documented in this encounter"
--- OUTSIDE RECORDS SUMMARY | ~2019-11-23 | XMS | Clinical Summary ---
Demographics + + + | Address | [address] | | | [place] [address] | + + + | Home Phone [...] Team Providers + +------+ + | Care Ad Compositor Name | Role | Phone | + +------+ + | Christos Olivarez MD | PCP | | + +------+ + Source Comments CHERI is fully live on both EpicCare Ambulatory and EpicCare InPatient.[facility] Allergies + + + + + [...] + | Tumor in Blood Study Participant #[id number] | 12/14/2017 | + + + + + | Overview: This patient consented to participate in our study | | Tumor in Blood #[id number], on 12/06/2017. We will request a sample of | | the patient's tumor along with obtaining a blood sample at | | regular scheduled clinic appointments. Please contact the study | | coordinators, Ami Marin at [email or web address] or Lexi Malone | | at [email or web address], if you have any questions.[facility] Lab: | | [phone] ID: [id number] | + + Resolved Problems + + [...] + + + + | 09/02/ | Information Systems Coordinator | Hematology & | Rebecca Booth | [...] + + + + | 08/29/ | Information Systems Coordinator | Hematology & | Rebecca Booth | | | 2018 | | Oncology | | | +--------+ + + + + from Last 3 Months Immunizations + + + + | Name | Administration Dates | Next Due | + + + + | [id number], | 07/25/2017 | | | injectable | [...] / Lot | + +------+--------+ +--------+--------+--------+ | [place] [facility] 6x1in | | N/A: | BARD | | 12/23/ | [id number] | | Thk1.65mm Ptfe Patch Sterile | | Abdome | | | 2022 | / | | - [id number]: Qty: 1 | | n | | | | /[id number] | | on 05/14/2018 by Jules, | | | | | | 169 | | MD Juvenal at [facility] | | | | | | [...] + + + + + | [facility] | [address] | [place] [address] | | | PATHOLOGY | [address] [...] | MEDICA | xxxxxxxxxxx | 07/27/20 | [phone] | [address] | Medica | | | RE A & | | 16-Pre | 1 | [address] | re | | | B | | sent | | [place] | | | | | | | | [address] | | + +--------+ +--------+ + +--------+ | [facility] | [facility] | xxxxxxxxx | Effect | [phone] | [address] | Agency | | ADMINISTRATION | COMMUN | | gentyr | 8 | [phone] | | | | ITY | | for | | [place], | | | | [place]SOU | | all | | [place] [address] | | | | RCE | | [...] | 1950 | [phone] | [place] [address] | | | marsha | | | 5 (Home) | | + +--------+ +--------+ + + | Jacob Sapp | [place] | Self | [birth year] | | [address] | | | [place] | | 1950 | [phone] | [place] [address] | | | red | | | [...]
--- OUTSIDE RECORDS SUMMARY | ~2019-11-23 | XMS | Encounter Summary ---
Demographics + + + | Address | [address] | | | [place] [address] | + + + | Home Phone | | + + + | Preferred Language | Unknown | + + + | Marital Status | | + + + | Christian Affiliation | CAT | + + + [...] Team Providers + +------+ + | Care Supervisor Mold [place] Name | Role | Phone | + [...] Pharmacy | | | | | | [address] | | | | | | [address] [place], [place] | | | | | | [address] | | | | | | [phone] | | | +--------+ + + + [...]
--- OUTSIDE RECORDS SUMMARY | ~2019-11-23 | XMS | Encounter Summary ---
Demographics + + + | Address | [address] | | | [place] [address] | + + + | Home Phone [...] Team Providers + +------+ + | Care Assistant Director Name | Role | Phone | + +------+ + | Christos Olivarez MD | PCP | | + +------+ + Encounter Details +--------+ + + + + | Date | Type | Department | Care Team | Description | +--------+ + + + + | 06/12/ | Slat Basket Top Maker | Hematology | Berna Rodriguez | Malignant neoplasm | | 2019 | | Oncology Study [address] | [address] | of lower third of | | | | [address] | Ashley French [place], | esophagus (HCC) | | | | Mailcode: CH7M | [place] [address] | (Primary Dx) | | | | [facility] | | | | | | and Monika, | | | | | | [facility] | | | | | | [place], [place] | | | | | | [address] | | | | | | [phone] | | | +--------+ + + + [...] as of this encounter Results LIPASE, PLASMA (06/17/2019 10:02 AM PDT) + [...] | + + + + + | [facility] | [address] | [place] [address] | | | SERVICES, CORE | [address] [...] [facility] | [address] | [place] [address] | | | SERVICES, CORE | [address] | | | + + + + + LDH TOTAL, PLASMA (06/17/2019 10:02 AM PDT) [...] | + + + + + | [facility] | [address] | [place] [address] | | | SERVICES, CORE | [address] | | | + + + + + documented in this encounter Visit Diagnoses + + | Diagnosis | + + | 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
--- OUTSIDE RECORDS SUMMARY | ~2019-11-23 | XMS | Encounter Summary ---
Demographics + + + | Address | [address] | | | [place] [address] | + + + | Home Phone [...] Team Providers + +------+ + | Care Celery Tier Name | Role | Phone | + [...] + + + + | 05/14/ | Anesthesia | 6A Intra Op 3181 | Sushila Crowell MD | | | 2018 | Event | [address] | [address] | | | | | [facility] | [facility] [place], | | | | | Hospital Admitting | [place] [address] | | | | | Desk Located on the | [phone] | | | | | 9th floor | | | | | | [place], [place] | Ravi Cespedes MD | | | | | [address] | [address] | | | | | | [facility] | | | | | | [place] [address] | | | | | | [phone] | | | | | | | | +--------+ + + + + Anesthesia Record + + + + + | Procedure Name | Responsible | Anesthesia Start | Anesthesia Stop Time | | | Anesthesiologist | Time | | + + + + + | MINIMALLY INVASIVE | Sushila Crowell MD | 05/14/18 0725 | 05/14/18 1730 | | LAPAROSCOPIC 3-FIELD [...] | Total | + + + | midazolam | 2 mg | + + + | fentaNYL | 400 mcg | + + + | lidocaine 2% | 100 mg | + + + | propofol | 120 mg | + + + | rocuronium | 240 mg | + + + | ceFAZolin | 6,000 mg | + + + | dexamethasone | 4 mg | + + + | ePHEDrine | 30 mg | + + + | PHENYLEPHrine | 700 mcg | + + + | sodium acetate-chloride (50:50) | 703.75 mL | | 3% IV infusion (hypertonic) | | + + + | norepinephrine INF (8mg/250mL) | 876.12 mcg | + + + | insulin regular | 3 Units | + + + | insulin regular INF (1unit/mL) | 3 Units | + + + | norepinephrine | 8 mcg | + + + | LR | 3,500 mL | + + + + + | Name | + + | Insp Iso | + + | Et Iso | + + | EtN2O % | + + | Insp N2O % | + + | O2 Flow Rate (Total Liters) | + + + + | No blood administrations on file. | + + +--------+ + + + | Type | Details | Placement | Removal | +--------+ + + + | Link | 04/10/18; 0834; Eleonora Ybarra | 04/10/1834 by | | | g Tube | ; J-tube; Abdomen UL; 12 | Gurinder Tiptno RN | | | | (David); (per [...] | Left; Forearm; 16 g; 05/16/18; | 05/14/18 09 by | 05/16/181999 by | | urbano | 1999; Per patient/family request | | [...] Arteri | Left; Radial; 20g; 05/15/18; | 05/14/18 0900 by | 05/15/18 1330 by | | al | 1330; Per order | | Priscila Parry RN | | Line | | | | +--------+ + + + | Centra | Right; 7 Fr.; Internal Jugular; | 05/14/18 0901 by | 05/17/18 0545 by | | l Line | 05/17/18; 0545; Per order | | Lissette Montez, | | - | | | RN | | Triple | | | | | Lumen | | | | +--------+ + + + | Incisi | 04/10/18; 0832; Midline; abdomen; | 04/10/18831 by | 05/14/18 09 by | | on | 05/14/18; 922 | Gurinder Tipton RN | Rufino Cavanaugh RN | +--------+ + + + | Incisi | 04/10/18; 0832; Left; Upper; | 04/10/18 0832 by | 05/14/18 09 by | | on | abdomen; 05/14/18; 922 | Gurinder Titpon RN | Rufino Cavanaugh RN | +--------+ + + + | Incisi | 04/10/18; 1059 (present upon | 04/10/18 1059 by | 05/14/18 09 by | | on | assessment in PACU); Left; | Maritza Leal, | Rufino Cavanaugh RN | | | Lateral; adb- upper quadrant; | RN | | | | 05/14/18; 0924 | | | +--------+ + + + | Naso/O | 05/14/18; Lewis escobedo; Right Nare; | 05/14/18 0000 by | 05/17/181744 by | | ro | Miguel Ángel; 05/17/18; 1744; (per | Lissette Montez, | Génesis Fernandes RN | | Tube | Red surgery team) | RN | | +--------+ + + + | Periph | 05/14/18; 06; 05/14/18923 | 05/14/18608 by Ravi | 05/14/18923 by | | eral | | Eva Cespedes MD | Rufino Cavanaugh RN | | IV | | | | +--------+ + + + | Periph | 05/14/18; 06; Right; Hand; 20 | 05/14/18 06 by | 05/19/18 0900 by | | urbano | g; 05/19/18; 09; Other | Eleonora Falcon RN | Rachel Nogueira RN | | IV | (Comment) (leaking) | | | +--------+ + + + | Urethr | 05/14/18; 075; MARIAJOSE Cavanaugh; | 05/14/18 075 by | 05/17/18 06 by | | al | Denys-benson Wilkerson; 16 Fr.; 10 mL; | Rufino Cavanaugh RN | Lissette Montez, | | Tip | 05/17/18; 0656; Per order | | RN | | er | | | | +--------+ + + + | Incisi | 05/14/18; 08; MD Alyx; Right; | 05/14/18 08 by | 05/14/181845 by | | on [...] + + + | Incisi | 05/14/18; 09; MD Alyx; Right; | 05/14/18 09 by | 05/14/181845 by | | on [...] + | ANE ETT | Routin | 05/14/2018 | | Results for this | | | e | 12:06 PM | | procedure are in the | | | | PDT | | results section. | + +--------+ + + + | ANE CVL | Routin | 05/14/2018 | | Results for this | | | e | 8:14 AM | | procedure are in the | | | | PDT | | results section. | + +--------+ + + + | JARRELL PAYTON LINE | Routin | 05/14/2018 | | Results for this | | | e | 8:14 AM | | procedure are in the | | | | PDT | | results section. | + +--------+ + + + | JARRELL MINER | Routin | 05/14/2018 | | Results for this | | | e | 8:13 AM | | procedure are in the | | | | PDT | | results section. | + +--------+ + + + | JARRELL SIMPSON | Routin | 05/14/2018 | | Results for this | | | e | 7:17 AM | | procedure are in the | | | | PDT | | results section. | + +--------+ + + + documented in this encounter Results JARRELL ETT (05/14/2018 12:06 PM PDT) + + + | Narrative | Performed At | + + + | Ravi Cespedes MD 05/14/2018 12:17 PM Procedure Reason for | | | Intubation: For surgical procedure, Location Performed: [place] , Patient | | | was preoxygenated Mask Ventilation Grade 0 - Ventilation by mask | | | not attempted Intubation Blade type: Falcon , Blade size: 2, | | | Atraumatic laryngoscopy: Atraumatic Laryngoscopy, Intubation | | | adjuncts: N/A and Stylet used , Laryngoscopic view: Grade II, | | | Fiberoptics used: N/A , Number of Attempts: 1, Positive for EtCO2: | | | Yes, Breath sounds: Bilateral and equal ETT Ett Adult: | | | Single-lumen cuffed ETT Size: 7.5 ETT secured with: adhesive tape | | | Depth at Lip: 22 Cm Narrative Attending physically present | | | Anticipating anterior airway, stylet pre | | + + + ANE CVL (05/14/2018 8:14 AM PDT) + + + | Narrative | Performed At | + + + | Ravi Cespedes MD 05/14/2018 8:15 AM Procedure Information | | | Central Venous Line Team pause: Performed per policy Double-Stick: | | | No Catheter type: Double lumen Location Performed: OR, | | | Indications: Assessment of intravascular volume Informed Consent: | | | Included in anesthesia consent, Protective Barrier: Cap, Mask, Gown, | | | Full-body drape, Hand scrub and Gloves Vein locater technique: | | | Ultrasound Guidance Ultrasound image: Printed and placed in patient's | | | chart Prep: ChloraPrep, Draped: Fully draped Anesthesia Method: | | | General anesthesia, Insertion side: Right Insertion Site: Internal | | | Jugular, Access device: 18G, angiocath Position confirmation: | | | Ultrasound and Confirmed by manometry Catheter size: 7 Fr Catheter | | | length: 15/16 cm Port flush: Saline All Ports Aspirated for | | | Blood Line secured with: Suture Sterile field while applying | | | dressing: dressing applied prior of removal of full barrier drape | | | Guidewire confirmed to be removed.without difficulties and intact | | | Assessment Number of attempts: 1st Complications: None | | | Attending physically present Attending Name: GERMAINE ORR | | + + + ANE ART LINE (05/14/2018 8:14 AM PDT) + + + | Narrative | Performed At | + + + | Ravi Cespedes MD 05/14/2018 8:14 AM Procedure ART LINE | | | Procedure Information Inserted: After Induction 5 minutes to | | | perform. Type Catheter: Arrow kit Indications: Beat to beat blood | | | pressure monitoring and Frequent lab draws Location Performed: OR | | | Informed Consent: Obtained Protective Barrier: Cap, Mask, Sterile | | | Gloves and Hand scrub Skin Prep: Chloraprep Draped: Partially | | | draped Anesthesia Method: General anesthesia Insertion side: Left | | | Insertion Site: Radial Access device: 20g Line secured by:Tape, | | | Dressing Applied and StatLock Artery locater technique: Ultrasound | | | Ultrasound image: Printed and placed in patients chart | | | Assessment Number of attempts: 3rd Complications: None Assessment: | | | Catheter connected to pressure line and flushed, catheter manually | | | flushed, Tolerated procedure well and Perfusion checked distal to | | | catheter Attending physically present Attending Name: GERMAINE ORR | | | Performed by Resident Name: RAVI CESPEDES | | + + + ANE ETT (05/14/2018 8:13 AM PDT) + + + | Narrative | Performed At | + + + | Ravi Cespedes MD 05/14/2018 8:13 AM Procedure Reason for | | | Intubation: For surgical procedure, Location Performed: OR , | | | Patient was preoxygenated Mask Ventilation Grade 1 - Ventilated by | | | mask Intubation Blade type: Yanelis , Blade size: 3, Atraumatic | | | laryngoscopy: Atraumatic Laryngoscopy, Intubation adjuncts: N/A , | | | Laryngoscopic view: Grade I, Fiberoptics used: N/A , Number of | | | Attempts: 1, Positive for EtCO2: Yes, ETT Ett Adult: | | | Double-lumen (left) ETT Size: 39F ETT secured with: adhesive tape | | | Depth at Lip: 30 Cm Narrative Attending physically present | | | Performed by Resident | | + + + ANE EPIDURAL (05/14/2018 7:17 AM PDT) + + + | Narrative | Performed At | + + + | Ravi Cespedes MD 05/14/2018 7:19 AM PROCEDURE NAME | | | Epidural or Caudal Information Epidural . Have received and | | | accepted request from attending surgeon to offer advanced acute pain | | | management services to the patient Location performed: Pre-Op | | | The patient was identified, the site marked,, full PARQ done Adult | | | or Pediatric: Adult Procedure Patient position: Sitting, | | | Epidural approach: Midline, Monitors: NIBP and SpO2, Supplemental | | | Oxygen Given, Sterile prep (ChloraPrep) drape and technique | | | Needle Tuohy with a 17g Needle insertion depth 5 cm Catheter | | | depth 10 cm Depth at loss of resistance 5 cm on the 1st attempt | | | Parasthesia: No. Negative for blood. Vertebral Interspace: T6-7 | | | CSF: Aspiration negative for CSF, Sensory Band:Side: bilateral, | | | Tested: Temperature sensation to ice, Upper Level: T6, Lower | | | Band:T10 MARGARITA: saline Assessment test dose given, Negative test | | | dose reaction See MAR for Drug and Dose Complications: None, | | | Technical Difficulty: Easy Intended Analgesia: Satisfactory block in | | | appropriate fashion Sensory Assessment: Decreased in area of block | | | Motor Assessment: Deferred; Narrative Attending physically | | | present SUSHILA CROWELLPerformed by Resident: RAVI CESPEDES | | + + + documented in this encounter Visit Diagnoses Not on filedocumented in this encounter Administered Medications + +--------+ + +------+------+ | Medication Order | MAR | Action | Dose | Rate | Site | | | Action | Date | | | | + +--------+ + +------+------+ | ceFAZolin (ANCEF) injection | Given | 05/14/20 | 2,000 mg | | | | intravenous, INTRAPROCEDURE PRN, | | 18 4:30 | | | | | Starting Sun05/14/18 at 0830, | | PM PDT | | | | | Until Sun05/14/18 at 1730 | | | | | | + +--------+ + +------+------+ +-------+ + +---+---+ | Given | 05/14/20 | 2,000 mg | | | | | 18 12:16 | | | | | | PM PDT | | | | +-------+ + +---+---+ | Given | 05/14/20 | 2,000 mg | | | | | 18 8:30 | | | | | | AM PDT | | | | +-------+ + +---+---+ +---+---+ | | | +---+---+ + +-------+ +------+---+---+ | dexamethasone (DECADRON) | Given | 05/14/20 | 4 mg | | | | injection intravenous, | | 18 8:30 | | | | | INTRAPROCEDURE PRN, Starting Tue | | AM PDT | | | | | 05/14/18 at 0830, Until Tue | | | | | | | 05/14/18 at 1730 | | | | | | + +-------+ +------+---+---+ +---+---+ | | | +---+---+ + +-------+ +-------+---+---+ | ePHEDrine injection | Given | 05/14/20 | 10 mg | | | | intravenous, INTRAPROCEDURE PRN, | | 18 10:28 | | | | | Starting 05/14/18 at 0851, | | AM PDT | | | | | Until 05/14/18 at 1730 | | | | | | + +-------+ +-------+---+---+ +-------+ +------+---+---+ | Given | 05/14/20 | 5 mg | | | | | 18 8:57 | | | | | | AM PDT | | | | +-------+ +------+---+---+ | Given | 05/14/20 | 5 mg | | | | | 18 8:55 | | | | | | AM PDT | | | | +-------+ +------+---+---+ +---+---+ | | | +---+---+ + +-------+ +--------+---+---+ | fentaNYL citrate (PF) | Given | 05/14/20 | 50 mcg | | | | (SUBLIMAZE) injection | | 18 5:25 | | | | | intravenous, INTRAPROCEDURE PRN, | | PM PDT | | | | | Starting 05/14/18 at 0652, | | | | | | | Until 05/14/18 at 1730 | | | | | | + +-------+ +--------+---+---+ +-------+ +--------+---+---+ | Given | 05/14/20 | 50 mcg | | | | | 18 4:30 | | | | | | PM PDT | | | | +-------+ +--------+---+---+ | Given | 05/14/20 | 50 mcg | | | | | 18 12:30 | | | | | | PM PDT | | | | +-------+ +--------+---+---+ +---+---+ | | | +---+---+ + +-------+ +---------+---+---+ | insulin regular bolus from | Given | 05/14/20 | 3 Units | | | | continuous infusion | | 18 1:53 | | | | | INTRAPROCEDURE PRN, Starting Tue | | PM PDT | | | | | 05/14/18 at 1353, Until Tue | | | | | | | 05/14/18 at 1730 | | | | | | + +-------+ +---------+---+---+ +---+---+ | | | +---+---+ + +---------+ + +---------+---+ | insulin regular in NaCl 0.9% IV | New Bag | 05/14/20 | 2 | 2 mL/hr | | | infusion (1 unit/mL) | | 18 1:53 | Units/hr | | | | INTRAPROCEDURE CONTINUOUS PRN, | | PM PDT | | | | | Starting 05/14/18 at 1353, | | | | | | | Until 05/14/18 at 1730 | | | | | | + +---------+ + +---------+---+ +---+---+ | | | +---+---+ + + + +---+---+---+ | lactated Ringers IV | given by | 05/14/20 | | | | | INTRAPROCEDURE CONTINUOUS PRN, | | 18 4:00 | | | | | Starting 05/14/18 at 0730, | anesthes | PM PDT | | | | | Until 05/14/18 at 1730 | iology | | | | | + + + +---+---+---+ + + +---+---+---+ | given by anesthesiology | 05/14/20 | | | | | | 18 2:00 | | | | | | PM PDT | | | | + + +---+---+---+ | given by anesthesiology | 05/14/20 | | | | | | 18 12:30 | | | | | | PM PDT | | | | + + +---+---+---+ +---+---+ | | | +---+---+ + +-------+ +--------+---+---+ | lidocaine PF (XYLOCAINE MPF) 20 | Given | 05/14/20 | 100 mg | | | | mg/mL (2 %) injection | | 18 7:34 | | | | | INTRAPROCEDURE PRN, Starting Tue | | AM PDT | | | | | 05/14/18 at 0734, Until Tue | | | | | | | 05/14/18 at 1730 | | | | | | + +-------+ +--------+---+---+ +---+---+ | | | +---+---+ + +-------+ +------+---+---+ | midazolam (VERSED) injection | Given | 05/14/20 | 1 mg | | | | intravenous, INTRAPROCEDURE PRN, | | 18 7:30 | | | | | Starting 05/14/18 at 0652, | | AM PDT | | | | | Until 05/14/18 at 1730 | | | | | | + +-------+ +------+---+---+ +-------+ +------+---+---+ | Given | 05/14/20 | 1 mg | | | | | 18 6:52 | | | | | | AM PDT | | | | +-------+ +------+---+---+ +---+---+ | | | +---+---+ + + + + +-------+---+ | norepinephrine (LEVOPHED) | Rate/Dos | 05/14/20 | 0.04 | 5.51 | | | 8mg/250 mL (0.032 mg/mL) IV | e Change | 18 4:01 | mcg/kg/m | mL/hr | | | infusion (RTU) INTRAPROCEDURE | | PM PDT | in | | | | CONTINUOUS PRN, Starting Tue | | | | | | | 05/14/18 at 1246, Until Tue | | | | | | | 05/14/18 at 1730 | | | | | | + + + + +-------+---+ + + + +-------+---+ | Rate/Dose Change | 05/14/20 | 0.06 | 8.27 | | | | 18 3:19 | mcg/kg/m | mL/hr | | | | PM PDT | in | | | + + + +-------+---+ | Rate/Dose Change | 05/14/20 | 0.04 | 5.51 | | | | 18 1:00 | mcg/kg/m | mL/hr | | | | PM PDT | in | | | + + + +-------+---+ +---+---+ | | | +---+---+ + +-------+ +-------+---+---+ | norepinephrine (LEVOPHED) | Given | 05/14/20 | 8 mcg | | | | injection intravenous, | | 18 3:26 | | | | | INTRAPROCEDURE PRN, Starting Tue | | PM PDT | | | | | 05/14/18 at 1526, Until Tue | | | | | | | 05/14/18 at 1730 | | | | | | + +-------+ +-------+---+---+ +---+---+ | | | +---+---+ + +-------+ +---------+---+---+ | PHENYLEPHrine 100 mcg/mL IV | Given | 05/14/20 | 100 mcg | | | | syringe INTRAPROCEDURE PRN, | | 18 10:28 | | | | | Starting 05/14/18 at 0746, | | AM PDT | | | | | Until 05/14/18 at 1730 | | | | | | + +-------+ +---------+---+---+ +-------+ +---------+---+---+ | Given | 05/14/20 | 100 mcg | | | | | 18 8:57 | | | | | | AM PDT | | | | +-------+ +---------+---+---+ | Given | 05/14/20 | 100 mcg | | | | | 18 8:56 | | | | | | AM PDT | | | | +-------+ +---------+---+---+ +---+---+ | | | +---+---+ + +-------+ +--------+---+---+ | propofol intravenous, | Given | 05/14/20 | 120 mg | | | | INTRAPROCEDURE PRN, Starting Tue | | 18 7:36 | | | | | 05/14/18 at 0736, Until Tue | | AM PDT | | | | | 05/14/18 at 1730 | | | | | | + +-------+ +--------+---+---+ +---+---+ | | | +---+---+ + +-------+ +-------+---+---+ | rocuronium (ZEMURON) injection | Given | 05/14/20 | 30 mg | | | | intravenous, INTRAPROCEDURE PRN, | | 18 3:00 | | | | | Starting 05/14/18 at 0736, | | PM PDT | | | | | Until 05/14/18 at 1730 | | | | | | + +-------+ +-------+---+---+ +-------+ +-------+---+---+ | Given | 05/14/20 | 30 mg | | | | | 18 1:30 | | | | | | PM PDT | | | | +-------+ +-------+---+---+ | Given | 05/14/20 | 20 mg | | | | | 18 12:25 | | | | | | PM PDT | | | | +-------+ +-------+---+---+ +---+---+ | | | +---+---+ + +---------+ + + +---+ | sodium acetate-chloride (50:50) | New Bag | 05/14/20 | 75 mL/hr | 75 mL/hr | | | 3% IV infusion (hypertonic) 75 | | 18 8:07 | | | | | mL/hr, intravenous, CONTINUOUS, | | AM PDT | | | | | Starting Tu05/14/18 at 0700, | | | | | | | Until 05/15/18 at 1144 | | | | | | + +---------+ + + +---+ +---+---+ | | | +---+---+ documented in this encounter"
--- OUTSIDE RECORDS SUMMARY | ~2019-11-23 | XMS | Encounter Summary ---
Demographics + + + | Address | [address] | | | [place] [address] | + + + | Home Phone [...] Providers + +------+ + | Care Supervisor Edging Name | Role | Phone | + [...]
--- OUTSIDE RECORDS SUMMARY | ~2019-11-23 | XMS | Encounter Summary ---
Demographics + + + | Address | [address] | | | [place] [address] | + + + | Home Phone [...] Providers + +------+ + | Care Automatic Paint Sprayer Operator Name | Role | Phone | [...] Description | +--------+--------+ + + + | 05/07/ | Refill | Hematology/Medical | Krunal Godoy, | Refill Request | | 2019 | | [facility]cology at [facility] | ,PhD [address] | (OLANZapine 5 mg | | | | [facility] | [place], [place] | oral tablet) | | | | [address] | [address] | | | | | Mailcode: [facility] | [phone] | | | | | for [facility] | | | | | | Healing, [address] | | | | | | [place], [place] | | | | | | [address] | | | | | | [phone] | | | +--------+--------+ + + + [...]
--- OUTSIDE RECORDS SUMMARY | ~2019-11-23 | XMS | Encounter Summary ---
Demographics + + + | Address | [address] | | | [place] [address] | + + + | Home Phone [...] Team Providers + +------+ + | Care Report Clerk Name | Role | Phone | [...] | | | neoplasm of | ,PhD [phone] | | | | | | lower third | [address] | | | | | | of esophagus | Cinebar, | | | | | | (HCC) | [place] | | | | | | Procedures | [address] | | | | | | US NEEDLE | Phone: | | | | | | BIOPSY | [phone] | | | | | | SUPERFICIAL | Fax: | | | | | | LYMPH NODE | [phone] | | | | | | W/ [...] | | | | of esophagus | Cinebar, | | | | | | (HCC) | [place] | | | | | | Procedures | [address] | | | | | | US NEEDLE | Phone: | | | | | | BIOPSY | [phone] | | | | | | SUPERFICIAL | Fax: | | | | | | LYMPH NODE | [phone] | | | | | | W/ GUIDANCE | | | + +--------+ + + + + Encounter Details +--------+ + + + + | Date | Type | Department | Care Team | Description | +--------+ + + + + | 08/22/ | Hospital | Diagnostic Imaging | Krunal Godoy, | | | 2019 | Encounter | Services at [facility] | ,PhD [address] | | | | | [address] | [place], [place] | | | | | Katherine French Mailcode: | [address] | | | | | [address] [facility] | [phone] | | | | | [place], [place] | | | | | | [address] | | | | | | [phone] | | | +--------+ + + + [...] protocol | | | | | | ([place] Ultraview) that | | | | | [...] from | | | | | | [place] according to | | | | | | oven unloader's | | | | | | instructions, with | | | | | | appropriate controls. | | | | | | [facility] participates in | | | | | | proficiency testing for | | | | | | gastric/GEJ Her-2/enio | | | | | | immunohistochemistry. | | | | | | Inadequate specimens are | | | | | | not reported.The | | | | | | [place] Her2 IHC scoring | | | | [...] Histopathology. | | | | | | [id number], 2007.2. | | | | | | [...] PathologistPathology, | | | | | | [facility] | | | | | | [place] | | | | + + + [...] to | | | | | | [facility] team at 3:25 pm | | | [...] number | | | | | | [id number]. Abdominal, | | | | | | [...] | | | | | determined by [facility] | | | | | | [...] + + + + + | [facility] | [address] | [place] [address] | | | PATHOLOGY | [address] | | | + + + + + documented in this encounter Visit Diagnoses + + | Diagnosis | + + | Malignant neoplasm of lower third of esophagus (HCC) Malignant neoplasm of lower | | third of esophagus | + + documented in this encounter
--- OUTSIDE RECORDS SUMMARY | ~2019-11-23 | XMS | Encounter Summary ---
Demographics + + + | Address | [address] | | | [place] [address] | + + + | Home Phone [...] Team Providers + +------+ + | Care Diesel Trailer Mechanic Name | Role | Phone | [...] | 10/28/ | Clinical | Laboratory at [facility] | | Lab Draw | | 2018 | Support | [address] | | | | | Staff | [place], [place] | | | | | | [address] | | | | | | [phone] | | | +--------+ + + + [...] + + documented in this encounter Results [facility] - COMPLETE METABOLIC SET (10/28/2018 9:38 [...] LABORATORY | [address] | [place] [address] | | | [facility] | | | [...] LABORATORY | | | | | | [facility], | | | | | | [place] [facility] | | | | | | [...] [facility] | [address] | [place] [address] | | | SERVICES, [place] [facility] | | | | | HEALTH [...] | [facility] | | | GRAVITY | Irving performed by | | LABORATORY | | [...] LABORATORY | [address] | [place] [address] | | | SERVICES, CORE | PARK [...] [facility] | [address] | [place] [address] | | | SERVICES, CORE | PARK [...] [facility] | [address] | [place] [address] | | | SERVICES, CORE | PARK [...] | + + + + + | [facility] | [address] | [place] [address] | | | SERVICES, CORE | PARK [...]
--- OUTSIDE RECORDS SUMMARY | ~2019-11-23 | XMS | Encounter Summary ---
Demographics + + + | Address | [address] | | | [place] [address] | + + + | Home Phone [...] Team Providers + +------+ + | Care Snow Removal/Plowing Name | Role | Phone | + [...] | | | | lower third | [address] | Mailcode: | | | | | of esophagus | [address] | Center for | | | | | Procedures | [place], [place] | Health and | | | | | [place] | [address] | Healing, | | | | | SERVICES | Phone: | Building 2 | | | | | PROVIDED | [phone] | [place], [place] | | | | | PART OF [place] | Fax: | [address] | | | | | INJ | [phone] | Phone: | | | | | [address] | | [phone] | | | | | MG Study | | Fax: | | | | | IRB: [id number] | | [phone] | | | | | Study Title: [...] + + + + | 09/03/ | Hospital | Hematology/Medical | [address], [address] | | | 2018 | Encounter | Oncology at [facility] | [address] [place], | | | | | [address] | [place] [address] | | | | | Mailcode: [place] | | | | | | for Health and | | | | | | [facility], [facility] 2 | | | | | | [place], [place] | | | | | | [address] | | | | | | [phone] | | | +--------+ + + + [...] | Blood Pressure | 126/88 | 09/03/2018 2:30 PM | | | | | PDT | | + + + + + | Pulse | 80 | 09/03/2018 2:30 PM | | | | | PDT | | + + + + + | Temperature | 36.9 C (98.4 F) | 09/03/2018 2:30 PM | | | | | PDT | | + + + + + | Respiratory Rate | 16 | 09/03/2018 2:30 PM | | | | | PDT | | + + + + + | Oxygen Saturation | 100% | 09/03/2018 2:30 PM | | | | | PDT | | + + + + + | Inhaled Oxygen | - | - | | | Concentration | | | | + + + + + | Weight | 66.5 kg (146 lb 9.6 | 09/03/2018 2:30 PM | | | | oz) | [...] encounter Progress Notes Karen Farias RN - 09/03/2018 10:46 AM PDTChemotherapy Nurse Note Name: Jacob Sapp Date: 09/03/2018 Physician: Agusto Allergies: Jacob is allergic to codeine. Diagnosis: Malignant neoplasm of lower third of esophagus (HCC) Significant Other: present Nursing Assessment: Fever: no; Diarrhea:No Constipation: No SOB / Cough: no; Rash: no Edema: no; Mucositis: no; Urinary: no; Neuropathy: no; S/S Bleeding: no; Severity (1=Not at all, 2=A little, 3=Quite a bit, 4=Very much) Nausea and/or Vomitin Fatigue: 1 Pain: 0 Narrative: Patient here for first cycle of INV Nivolumab/Placebo. Pt previously [facility] the [facility]. Hand out given and reviewed with pt and . PIV started in right forearm and research labs drawn and placed in bin for study coordinato r excelsior picker. Pt had labs drawn within 14 days of today's tx, per orders in plan ok to use the se labs for tx. Positive blood return on IV line prior and after infusion. Medication infuse d with 250ml NS sidearm bag. Pt tolerated without incident. PIV d/c'd and intact. 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 Refer to MAR and [...] 240 mg in | New Bag | 09/03/20 | 240 mg | 120 | | | INV NaCl 0.9% IV 240 mg, | | 18 3:43 | | mL/hr | | | intravenous, Administer over 30 | | PM PDT | | | | | Minutes, ONCE, 1 dose, Tue | | | | | | | 09/03/18 at 1500, Pt ID: [id number], | | | | | | | Administer using a 0.2 micron | | | | | | | filter. Flush line with 15-20 mL | | | | | | | of normal saline. For | | | | | | | investigational use only, HIGH | | | | | | | ALERT MEDICATION IRB:[id number], | | | | | | | Protocol:[id number], Infuse using | | | | | | | 0.2 micron filter., | | | | | | + +---------+ +--------+-------+------+ +---+---+ | | | +---+---+ documented in this encounter"
--- OUTSIDE RECORDS SUMMARY | ~2019-11-23 | XMS | Encounter Summary ---
Demographics + + + | Address | [address] | | | [place] [address] | + + + | Home Phone [...] Team Providers + +------+ + | Care Sash Repairer Name | Role | Phone | [...] | 07/15/ | Clinical | Laboratory at [facility] | | Lab Draw (PIV) | | 2019 | Support | [address] | | | | | Staff | [place], [place] | | | | | | [address] | | | | | | [phone] | | | +--------+ + + + [...] + | OL[facility] - AIRPORT - | [address] | [place] [address] | | | [place] | | | [...] + + + + | [facility] | [address] | [place] [address] | | | TIMO, JUSTIN | ASHLEY [...] + + + + | [facility] | [address] | [place] [address] | | | SERVICES, CORE | PARK [...] | + + + + + | [facility] | [address] | [place] [address] | | | SERVICES, CORE | ASHLEY [...] [facility] | [address] | [place] [address] | | | SERVICES, CORE | ASHLEY [...] LABORATORY | [address] | [place] [address] | | | [facility] | | | | [...] | | | LABORATORY | | | [place] | | | SERVICES, | | | [...] MDRD equation recommended by the National | [facility] | | Kidney Disease Education Program. Estimated [...] [facility] | [address] | [place] [address] | | | [facility] | | | | | HEALTH [...]
--- OUTSIDE RECORDS SUMMARY | ~2019-11-23 | XMS | Encounter Summary ---
Demographics + + + | Address | [address] | | | [place] [address] | + + + | Home Phone [...] Providers + +------+ + | Care Supervisor Data Processing Name | Role | Phone | + +------+ + | Christos Olivarez MD | PCP | | + +------+ + Encounter Details +--------+ + + + + | Date | Type | Department | Care Team | Description | +--------+ + + + + | 06/12/ | Server Manager | Hematology | Berna Rodriguez | Malignant neoplasm | | 2019 | | Oncology Study [address] | [address] | of lower third of | | | | [address] | Ashley French [place], | esophagus (HCC) | | | | Mailcode: CH7M | [place] [address] | (Primary Dx) | | | | [facility] | | | | | | and Monika, | | | | | | [facility] | | | | | | [place], [place] | | | | | | [address] | | | | | | [phone] | | | +--------+ + + + [...] [facility] | [address] | [place] [address] | | | SERVICES, CORE | ASHLEY [...] [facility] | [address] | [place] [address] | | | SERVICES, CORE | ASHLEY [...] | + + + + + | [facility] | [address] | [place] [address] | | | SERVICES, CORE | [address] | | | + + + + + documented in this encounter Visit Diagnoses + + | Diagnosis | + + | 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
--- OUTSIDE RECORDS SUMMARY | ~2019-11-23 | XMS | Encounter Summary ---
Demographics + + + | Address | [address] | | | [place] [address] | + + + | Home Phone [...] Team Providers + +------+ + | Care Entry Level Mechanical Engineer Name | Role | Phone | + +------+ + | Christos Olivarez MD | PCP | | + +------+ + Reason for Visit + + + | Reason | Comments | + + + | Medical Records | | | Review | | + + + Encounter Details +--------+ + + + + | Date | Type | Department | Care Team | Description | +--------+ + + + + | 08/05/ | Telephone | Hematology/Medical | Benji Whalen RN | Medical Records | | 2019 | | Oncology at Center | [address] | Review | | | | for Health & Healing | [address] | | | | | [address] | [place], [place] | | | | | Mailcode: [place] | [address] | | | | | for Health and | [phone] | | | | | Healing, Building [address] | | | | | | [place], [place] | | | | | | [address] | | | | | | [phone] | | | +--------+ + + + [...]
--- OUTSIDE RECORDS SUMMARY | ~2019-11-23 | XMS | Encounter Summary ---
Demographics + + + | Address | [address] | | | [place] [address] | + + + | Home Phone [...] Team Providers + +------+ + | Care Farm Adviser Name | Role | Phone | + [...] + + | 07/12/ | Telephone | [facility] | Eleonora Ybarra, | Treatment Planning | | 2018 | | Center at [facility] [address] | MD [address] | | | | | [address] | Ave [place], [place] | | | | | Mailcode: [place] | [address] | | | | | [facility] and | [phone] | | | | | [facility], [facility] 2 | | | | | | [place], [place] | | | | | | [address] | | | | | | [phone] | | | +--------+ + + + [...]
--- OUTSIDE RECORDS SUMMARY | ~2019-11-23 | XMS | Encounter Summary ---
Demographics + + + | Address | [address] | | | [place] [address] | + + + | Home Phone [...] Team Providers + +------+ + | Care Television Journalist Name | Role | Phone | + +------+ + | Christos Olivarez MD | PCP | | + +------+ + Encounter Details +--------+ + + + + | Date | Type | Department | Care Team | Description | +--------+ + + + + | 01/19/ | Fire Sprinkler Apparatus Inspector | Hematology/Medical | Krunal Godoy, | | | 2019 | | Oncology at [place] | ,PhD [address] | | | | | for Health & Healing | [place], [place] | | | | | [address] | [address] | | | | | Mailcode: [place] | [phone] | | | | | for Health and | | | | | | [facility], [facility] 2 | | | | | | [place], [place] | | | | | | [address] | | | | | | [phone] | | | +--------+ + + + [...]
--- OUTSIDE RECORDS SUMMARY | ~2019-11-23 | XMS | Encounter Summary ---
Demographics + + + | Address | [address] | | | [place] [address] | + + + | Home Phone [...] Team Providers + +------+ + | Care Black Top Roller Name | Role | Phone | + [...] | [address] | [address] [facility] | | | | | lower third | [facility] | [facility] | | | | | of esophagus | [facility] | Rd | | | | | Esophagus | Road | [facility] [place] | | | | | Ca | [facility] [place] | [address] | | | | | Procedures | [address] | Phone: | | | | | Consult, | Phone: | [phone] | | | | | Sage Wilkins | [phone] | Fax: | | | | | | Fax: | [phone] | | | | | | [phone] | | +--------+--------+ + + + + Encounter Details +--------+ + + + + | Date | Type | Department | Care Team | Description | +--------+ + + + + | 01/24/ | Hospital | Radiation Oncology | | | | 2018 | Encounter | at [facility] [address] | | | | | | [place] | | | | | | [id number] | | | | | | HOSPITAL [place], | | | | | | [place] [address] | | | | | | [phone] | | | +--------+ + + + [...]
--- OUTSIDE RECORDS SUMMARY | ~2019-11-23 | XMS | Encounter Summary ---
Demographics + + + | Address | [address] | | | [place] [address] | + + + | Home Phone [...] Team Providers + +------+ + | Care Marble Chip Terrazzo Worker Name | Role | Phone | [...] | | | neoplasm of | ,PhD [address] | | | | | | lower third | [address] | | | | | | of esophagus | [place], | | | | | | ([facility]) | [place] | | | | | | Procedures | [address] | | | | | | PET CT SKULL | Phone: | | | | | | BASE TO | [phone] | | | | | | MID-THIGHS | Fax: | | | | | | | [phone] | | + +--------+ + + + [...] | | | | of esophagus | [place], | | | | | | ([facility]) | [place] | | | | | | Procedures | [address] | | | | | | PET CT SKULL | Phone: | | | | | | BASE TO | [phone] | | | | | | MID-THIGHS | Fax: | | | | | | | [phone] | | + +--------+ + + + + Encounter Details +--------+ + + + + | Date | Type | Department | Care Team | Description | +--------+ + + + + | 08/15/ | Hospital | [facility] | Krunal Godoy, | | | 2019 | Encounter | [place] at | ,PhD [address] | | | | | [place] [address] | [place], [place] | | | | | [facility] | [address] | | | | | [place], [place] | [phone] | | | | | [address] | | | | | | [phone] | | | +--------+ + + + [...]
--- OUTSIDE RECORDS SUMMARY | ~2019-11-23 | XMS | Encounter Summary ---
Demographics + + + | Address | [address] | | | [place] [address] | + + + | Home Phone [...] Team Providers + +------+ + | Care Steward/Stewardess Name | Role | Phone | + [...] | Oncology at [facility] | [address] [place], | | | | | [address] | [place] [address] | | | | | Mailcode: [place] | | | | | | [facility] Health and | | | | | | Healing, Building [address] | | | | | | [place], [place] | | | | | | [address] | | | | | | [phone] | | | +--------+ + + + [...] | | | | | ALERT MEDICATION IRB:[id number], | | | | | | | Protocol:[id number], Infuse using | | | | | [...]
--- OUTSIDE RECORDS SUMMARY | ~2019-11-23 | XMS | Encounter Summary ---
Demographics + + + | Address | [address] | | | [place] [address] | + + + | Home Phone [...] Team Providers + +------+ + | Care Vat House Laborer Name | Role | Phone | [...] | | 2019 | | Oncology at [place] | ,PhD [address] | (ondansetron ODT | | | | for Health & Healing | [place], [place] | (ZOFRAN ODT) 4 mg | | | | [address] [facility] | [address] | oral | | | | Mailcode: [place] | [phone] | tablet,disintegratin | | | | for Health and | | g) | | | | Healing, Building [address] | | | | | | [place], [place] | | | | | | [address] | | | | | | [phone] | | | +--------+--------+ + + + [...]
--- OUTSIDE RECORDS SUMMARY | ~2019-11-23 | XMS | Encounter Summary ---
Demographics + + + | Address | [address] | | | [place] [address] | + + + | Home Phone [...] Team Providers + +------+ + | Care Ornamental Metal Worker Helper Name | Role | Phone | [...] | | | | lower third | [address] | [address] | | | | | of esophagus | [address] | Mailcode: | | | | | (HCC) | [facility] [place] | [address] | | | | | Procedures | [address] | [place] | | | | | SIMULATION | Phone: | Hospital | | | | | IMAGING | [phone] | [facility] | | | | | | Fax: | [place], [place] | | | | | | [phone] | [address] | | | | | | | Phone: | | | | | | | [phone] | | | | | | | Fax: | | | | | | | [phone] | +--------+--------+ + + + + Reason [...] | neoplasm of | [address] | | | | | lower third | [address] | [address] | | | | | of esophagus | [address] | Mailcode: | | | | | (HCC) | [place], [place] | [address] | | | | | Procedures | [address] | [place] | | | | | SIMULATION | Phone: | Hospital | | | | | IMAGING | [phone] | [facility] | | | | | | Fax: | [place], [place] | | | | | | [phone] | [address] | | | | | | | Phone: | | | | | | | [phone] | | | | | | | Fax: | | | | | | | [phone] | +--------+--------+ + + + + Encounter Details +--------+ + + + + | Date | Type | Department | Care Team | Description | +--------+ + + + + | 12/14/ | Hospital | Radiation Oncology | Daniel Barrera, | | | 2018 | Encounter | at [facility] [address] | [address] | | | | | [place] | [address] | | | | | [id number] [facility] | [place], [place] | | | | | [facility], | [address] | | | | | [place] [address] | [phone] | | | | | [phone] | | | +--------+ + + + [...]
--- OUTSIDE RECORDS SUMMARY | ~2019-11-23 | XMS | Encounter Summary ---
Demographics + + + | Address | [address] | | | [place] [address] | + + + | Home Phone | | + + + | Preferred Language | Unknown | + + + | Marital Status | | + + + | Oriental Orthodox Affiliation | CAT | + + [...] Providers + +------+ + | Care Legal Department Manager Name | Role | Phone | [...] | | | | lower third | [address] | Mailcode: | | | | | of esophagus | [address] | Center for | | | | | Procedures | [place], [place] | Health and | | | | | [place] | [address] | Healing, | | | | | SERVICES | Phone: | Building [address] | | | | | PROVIDED | [phone] | [place], [place] | | | | | PART OF [place] | Fax: | [address] | | | | | INJ | [phone] | Phone: | | | | | [address] | | [phone] | | | | | [place] EST | | Fax: | | | | | PATIENT | | [phone] | | | | | LEVEL V | | | | | | | Study IRB: | | | | | | | [id number] Study | | | | | | [...] Description | +--------+---------+ + + + | 03/26/ | Office | Hematology/Medical | RonquilloYun | Malignant neoplasm | | 2019 | Visit | Oncology at [place] | POOJA Leger [address] | of lower third of | | | | for Health & Healing | [address] | esophagus (HCC) | | | | [address] | [place], [place] | (Primary Dx); | | | | Mailcode: [place] | [address] | Clinical trial exam; | | | | for Health and | [phone] | Encounter for | | | | [facility], [facility] 2 | | antineoplastic | | | | [place], [place] | | immunotherapy; | | | | [address] | | Elevated liver | | | | [phone] | | enzymes | +--------+---------+ + + + Social History [...] + + + | Blood Pressure | 124/86 | 03/26/2019 10:20 AM | | | | | PDT | | + + + + + | Pulse | 60 | 03/26/2019 10:20 AM | | | | | PDT | | + + + + + | Temperature | 36.7 C (98.1 F) | 03/26/2019 10:20 AM | | | | | PDT | | + + + + + | Respiratory Rate | 16 | 03/26/2019 10:20 AM | | | | | PDT | | + + + + + | Oxygen Saturation | 100% | 03/26/2019 10:20 AM | | | | | PDT | | + + + + + | Inhaled Oxygen | - | - | | | Concentration | | | | + + + + + | Weight | 76.5 kg (168 lb 9.6 | 03/26/2019 10:20 AM | | | | oz) | [...] encounter Progress Notes Yun Ronquillo PA-C - 03/26/2019 10:10 AM PDTFormatting of this note might be [...] or no response, score 3) - 07/31/2018 [facility] Medical oncology evaluation- offered enrollment on [...] Sapp returns to clinic today for follow up one week after his 12th cycle of nivolmab/ placebo was delayed due to grade 2 elevations in AST/ALT. He reports feeling well with his extra week off, no new complaints or concerns today. Review of Systems: Review of Systems Constitutional: Positive for malaise/fatigue. +fever/chills Endo/Heme/Allergies: +hot flashes/flushes Remainder of complete 14 pt review of systems negative except as above. Review of systems were obtained and reviewed with the patient today. Please reference the s canned questionnaire, see HPI for pertinent positives. PFSH: I reviewed and updated. Good social support system. Physical Examination: BP 124/86 | Pulse 60 | Temp 36.7 C (98.1 F) (Oral) | Resp 16 | Wt 76.5 kg (168 lb 9 .6 oz) | SpO2 100% | BMI 25.64 kg/m | BSA 1.92 m ECO Gen: Well-developed, well-nourished, ambulatory, in [...] x 3. Psych: Pleasant, conversant, affect appropriate. Line: Port site well healed, intact, non-tender, no erythema Labs: Lab Results Component Value Date NA 139 03/26/2019 K 3.8 03/26/2019 CL 102 03/26/2019 BICARB 28 03/26/2019 BUN 7 03/26/2019 CR 0.60 03/26/2019 GLU 102 03/26/2019 CA 9.1 03/26/2019 AST 116 03/26/2019 ALT 80 03/26/2019 AP 86 03/26/2019 TBILI 0.6 03/26/2019 TP 6.8 03/26/2019 ALB 3.4 03/26/2019 Lab Results Component Value Date WBC 4.03 03/26/2019 HB 10.5 03/26/2019 HCT 30.5 03/26/2019 PLT 161 03/26/2019 MCV 101.0 03/26/2019 RDW 51.8 03/26/2019 Imaging: No new imaging to review Plan/ [...] controlled with Olanzapine - Proceed with Cycle 12 Nivolumab/placebo today, was delayed one week for elevated ALT and AST (grade 2 toxicity), these liver enzymes have since improved to a grade 1. - I discussed the goals, objectives, risks, [...] - not discussed today d/t improved mood. Yun Ronquillo M.S., PA-C Physician Component Lab Tech Medical Oncology Pager [phone] Research Note Study #: [id number] Patient Name: Jacob Sapp Patient Medical/Surgical History Date Cervical spinal stenosis 1997 Coronary artery disease - diagnosed on angiogram when experienced chest pain - treated with medications, pain attributed to esophageal spasm, never had PA or stent 2007 H/O Diverticulosis 1997 Hernia, [...] capsule (DR/EC) DAILY Depressive symptoms/anx iety HYDROcodone-acetaminophen 2008 5-325 mg PO tablet Take 1 tablet by mouth Q4HRs PRN Pain (n tawanda) LORazepam 2016 1 mg PO PRN Anxiety/sleep Lovastatin 2012 20 mg PO DAILY - in evening Hyperlipidemia Omeprazole (Prilosec) 2008 20 mg PO, delayed release capsule (DR/EC) DAILY - in morning GE RD prophylaxis Propranol 2003 60 mg PO Take [...] levothyroxine 02/18/19 25 mcg PO QD hypothyroidism Milk thistle 03/23/19 1 tablet PO TID Health support Adverse Event Name Start Date End Date [...] none 2 = no n transaminitis/AST 03/19/2019 03/26/2019 2 1 =related 3 = temp stop 1 = yes n transaminitis/AST 03/26/2019 1 1 =related 1 = temp stop 1= yes n documented in t his encounter Plan of Treatment Not on filedocumented as of this encounter Procedures + +--------+ + + + | Procedure Name | Priori | Date/Time | Associated Diagnosis | Comments | | | ty | | | | + +--------+ + + + | ADMINISTER | Routin | 03/26/2019 | | | | CHEMOTHERAPY PER | e | 11:12 AM | | | | TREATMENT PARAMETERS | [...] for antineoplastic immunotherapy | + + | Elevated liver enzymes Nonspecific elevation of levels of transaminase or lactic acid | | dehydrogenase (LDH) | + + documented in this encounter"
--- OUTSIDE RECORDS SUMMARY | ~2019-11-23 | XMS | Encounter Summary ---
Demographics + + + | Address | [address] | | | [place] [address] | + + + | Home Phone [...] Team Providers + +------+ + | Care Merchandise Shopper Name | Role | Phone | + +------+ + | Luis Leiva DO | PCP | | + +------+ + Encounter Details +--------+ + + + + | Date | Type | Department | Care Team | Description | +--------+ + + + + | 03/28/ | Telephone | Digestive Health | Rodrigo Merrill, | | | 2018 | | Center at [address] | Philip Woods MD | | | | | [address] | | | | | | Mailcode: [place] | | | | | | for Health and | | | | | | Healing, Building [address] | | | | | | [place], [place] | | | | | | [address] | | | | | | [phone] | | | +--------+ + + + [...]
--- OUTSIDE RECORDS SUMMARY | ~2019-11-23 | XMS | Encounter Summary ---
Demographics + + + | Address | [address] | | | [place] [address] | + + + | Home Phone [...] Team Providers + +------+ + | Care Regional Dedicated Truck Driver Name | Role | Phone | + [...] | | [address] | Ave [place], [place] | | | | | Mailcode: [place] | [address] | | | | | [facility] and | [phone] | | | | | [facility], [place] [address] | | | | | | [place], [place] | | | | | | [address] | | | | | | [phone] | | | +--------+ + + + [...]
--- OUTSIDE RECORDS SUMMARY | ~2019-11-23 | XMS | Encounter Summary ---
Demographics + + + | Address | [address] | | | [place] [address] | + + + | Home Phone [...] Team Providers + +------+ + | Care Jet Handler Name | Role | Phone | + +------+ + | Christos Olivarez MD | PCP | | + +------+ + Encounter Details +--------+ + + + + | Date | Type | Department | Care Team | Description | +--------+ + + + + | 07/14/ | Ticket Agent | Hematology/Medical | Krunal Godoy, | | | 2019 | | Oncology at [place] | ,PhD [address] | | | | | for Health & Healing | [place], [place] | | | | | [address] | [address] | | | | | Mailcode: [place] | [phone] | | | | | for Health and | | | | | | [facility], [facility] 2 | | | | | | [place], [place] | | | | | | [address] | | | | | | [phone] | | | +--------+ + + + [...]
--- OUTSIDE RECORDS SUMMARY | ~2019-11-23 | XMS | Encounter Summary ---
Demographics + + + | Address | [address] | | | [place] [address] | + + + | Home Phone [...] Team Providers + +------+ + | Care Ultimate Hoops Scoreboard Operator Name | Role | Phone | + +------+ + | Christos Olivarez MD | PCP | | + +------+ + Encounter Details +--------+ + + + + | Date | Type | Department | Care Team | Description | +--------+ + + + + | 05/16/ | Flower Arranger | Hematology | Krunal Godoy, | Malignant neoplasm | | 2019 | | Oncology Study [address] | ,PhD [address] | of lower third of | | | | [address] | Ave [place], [place] | esophagus (HCC) | | | | Mailcode: CH7M | [address] | (Primary Dx) | | | | [facility] | [phone] | | | | | and [place], | | | | | | [facility] | | | | | | [place], [place] | | | | | | [address] | | | | | | [phone] | | | +--------+ + + + [...] | + + + + + | [facility] | [address] | [place] [address] | | | SERVICES, CORE | PARK [...] [facility] | [address] | [place] [address] | | | SERVICES, CORE | PARK [...] + + + + + | [facility] | [address] | [place] [address] | | | SERVICES, CORE | [address] | | | + + + + + documented in this encounter Visit Diagnoses + + | Diagnosis | + + | 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
--- OUTSIDE RECORDS SUMMARY | ~2019-11-23 | XMS | Encounter Summary ---
Demographics + + + | Address | [address] | | | [place] [address] | + + + | Home Phone [...] + + + | Author | [facility] | + + + | Organization | [facility] | + + + | [...] + +------+ + | Care Director Of Catering Sales Name | Role | Phone | + [...] + + | 11/14/ | Hospital | [facility] [address] | Dakota Li, | | | 2016 | Encounter | [address] | MD [address] | | | | | [facility] | [facility] | | | | | Manuel Madrigal | [place], [place] | | | | | (MNP/OLD [facility]) | [address] | | | | | [place], [place] | [phone] | | | | | [address] | | | | | | [phone] | | | +--------+ + + + [...] Discharge Instructions Instructions West, Hattie, RN - 11/14/2017[place] Care Instructions after EGD (Upper Endoscop y) [...] hours or on weekends and holiday Hospital Imaging Administrator toll free [phone]. [phone] and have the GI doctor project controls specialist paged. The provider who performed your procedure is: Dr. Li Results of your EGD/EUS: Staging done. Follow up Appointments with: [facility] you for choosing [facility]! Your primary care provider or referring provider [...] + | MRN: | [facility] | | [id number] Date: 11/14/2017Patient Name: Jacob Carlos #: | ENDOSCOPY | | [id number] of : 1950SN: [id number] Type: | | | AmbulatoryRoom: GI 2Procedure: Upper EUSIndications: | | | Pre-treatment staging of esophageal adenocarcinomaProviders: | | | DAKOTA LI MD (Doctor), HATTIE TABOR RN (Nurse), | | | JUNE SLADE RN (Silica Mixer Operator), | | | SHASHI HERNANDEZ (Silica Mixer Operator)Referring | | | MD: INDIGO DIOR MDRequesting [...] | | | The Olympus [id number] Endoscope #[id number] | | | was introduced through the mouth, and | | | advanced to the second part of | | | duodenum. The Olympus [id number] Radial Echoendoscope | | | #[id number] was introduced through the mouth, and | [...] procedure.HANNAH Harris MD11/14/2017 | | | 5:56:27 [facility].Number of | | | Addenda: 0Note Initiated On: 11/14/2017 4:40 [facility] Letter to: | | | LUIS [...]
--- OUTSIDE RECORDS SUMMARY | ~2019-11-23 | XMS | Encounter Summary ---
Demographics + + + | Address | [address] | | | [place] [address] | + + + | Home Phone [...] Team Providers + +------+ + | Care Provider Relations Rep Name | Role | Phone | + +------+ + | Christos Olivarez MD | PCP | | + +------+ + Encounter Details +--------+ + + + + | Date | Type | Department | Care Team | Description | +--------+ + + + + | 03/22/ | Procedure | Radiology/Imaging | | | | 2017 | Pass | Lab at [facility] [address] | | | | | | [address] Mailcode: | | | | | | CH3G [facility] | | | | | | Health and Healing, | | | | | | [place] [address], | | | | | | Floor [place], [place] | | | | | | [address] | | | | | | [phone] | | | +--------+ + + + [...]
--- OUTSIDE RECORDS SUMMARY | ~2019-11-23 | XMS | Encounter Summary ---
Demographics + + + | Address | [address] | | | [place] [address] | + + + | Home Phone [...] Team Providers + +------+ + | Care Electric Motor Repairman Name | Role | Phone | [...] | | | neoplasm of | ,PhD [address] | | | | | | lower third | [address] | | | | | | of esophagus | [place], | | | | | | (HCC) | [place] | | | | | | Procedures | [address] | | | | | | CT CHEST, | Phone: | | | | | | ABDOMEN AND | [phone] | | | | | | PELVIS W IV | Fax: | | | | | | CONTRAST | [phone] | | + +--------+ + + + + Encounter Details +--------+ + + + + | Date | Type | Department | Care Team | Description | +--------+ + + + + | 04/28/ | Strings Teacher | Hematology | Krunal Godoy, | Malignant neoplasm | | 2019 | | Oncology Study [address] | ,PhD [address] | of lower third of | | | | [address] | Ave [place], [place] | esophagus (HCC) | | | | Mailcode: CH7M | [address] | (Primary Dx) | | | | [place] for [facility] | [phone] | | | | | and Healing, | | | | | | Building [address], | | | | | | Floor [place], [place] | | | | | | [address] | | | | | | [phone] | | | +--------+ + + + [...]
--- OUTSIDE RECORDS SUMMARY | ~2019-11-23 | XMS | Encounter Summary ---
Demographics + + + | Address | [address] | | | [place] [address] | + + + | Home Phone [...] Providers + +------+ + | Care Credit Collection Associate Name | Role | Phone | [...] | [address] | [address] [facility] | | | | | lower third | [facility] | [facility] | | | | | of esophagus | [facility] | Rd | | | | | Esophagus | Road | [facility] [place] | | | | | Ca | [facility] [place] | [address] | | | | | Procedures | [address] | Phone: | | | | | Consult, | Phone: | [phone] | | | | | Sage Wilkins | [phone] | Fax: | | | | | | Fax: | [phone] | | | | | | [phone] | | +--------+--------+ + + + + Encounter Details +--------+ + + + + | Date | Type | Department | Care Team | Description | +--------+ + + + + | 12/27/ | Hospital | Radiation Oncology | | | | 2017 | Encounter | at [facility] [address] | | | | | | [place] | | | | | | [id number] [facility] | | | | | | HOSPITAL [place], | | | | | | [place] [address] | | | | | | [phone] | | | +--------+ + + + [...]
--- OUTSIDE RECORDS SUMMARY | ~2019-11-23 | XMS | Encounter Summary ---
Demographics + + + | Address | [address] | | | [place] [address] | + + + | Home Phone [...] Team Providers + +------+ + | Care Billboard Erector Helper Name | Role | Phone [...] | | | neoplasm of | ,PhD [address] | | | | | | lower third | [address] | | | | | | of esophagus | [place], | | | | | | (HCC) | [place] | | | | | | Procedures | [address] | | | | | | PET CT SKULL | Phone: | | | | | | BASE TO | [phone] | | | | | | MID-THIGHS | Fax: | | | | | | | [phone] | | + +--------+ + + + [...] neoplasm of | [address] | ,PhD [address] | | | | | lower third | [address] | [address] | | | | | of esophagus | [address] | [place], [place] | | | | | Procedures | [place], [place] | [address] | | | | | [place] | [address] | Phone: | | | | | SERVICES | Phone: | [phone] | | | | | PROVIDED | [phone] | Fax: | | | | | PART OF [place] | Fax: | [phone] | | | | | INJ | [phone] | | | | | | NIVOLUMAB 1 | | | | | | | MG DE EST | | | | | | [...] | 2019 | Visit | Oncology at [place] | ,PhD [address] | of lower third of | | | | for Health & Healing | Ave [place], [place] | esophagus (HCC) | | | | [address] | [address] | (Primary Dx); | | | | Mailcode: [place] | [phone] | Clinical trial exam; | | | | for Health and | | Nausea; Fatigue, | | | | Healing, Building [address] | | unspecified type; | | | | [place], [place] | | Encounter for | | | | [address] | | antineoplastic | | | | [phone] | | immunotherapy; | | | | [...] or no response, score 3) - 07/31/2018 [facility] Medical oncology evaluation- offered enrollment [...] ABDOMEN AND PELVIS W IV CONTRAST Order: [id number] Status: Final result Visible to patient: No [...] Ana Abdul. Research Note Study #: [id number] Patient Name: Jacob Sapp Patient Medical/Surgical History Date Cervical spinal stenosis 1997 Coronary artery disease - diagnosed on angiogram when experienced chest pain - treated with medications, pain attributed to esophageal spasm, never had [place] or stent 2007 H/O Diverticulosis 1997 Hernia, [...] | | 08/18/2019 8:44 PM Preliminary: Dominick Rcoha MD 08/18/2019 | | | 11:10 AM [...] | + + + + + | [facility] | [address] | [place] [address] | | | SERVICES, CORE | PARK [...]
--- OUTSIDE RECORDS SUMMARY | ~2019-11-23 | XMS | Encounter Summary ---
Demographics + + + | Address | [address] | | | [place] [address] | + + + | Home Phone [...] Team Providers + +------+ + | Care Fish Net Stringer Name | Role | Phone | + +------+ + | Christos Olivarez MD | PCP | | + +------+ + Encounter Details +--------+ + + + + | Date | Type | Department | Care Team | Description | +--------+ + + + + | 08/29/ | Post Acute Care Registered Nurse | Hematology | Rebecca Booth | | | 2019 | | Oncology Study [address] | [address] | | | | | [address] | Katherine French [place], | | | | | Mailcode: CH7M | [place] [address] | | | | | [facility] | | | | | | and Healing, | | | | | | Building | | | | | | Floor [place], [place] | | | | | | [address] | | | | | | [phone] | | | +--------+ + + + [...]
--- OUTSIDE RECORDS SUMMARY | ~2019-11-23 | XMS | Encounter Summary ---
Demographics + + + | Address | [address] | | | [place] [address] | + + + | Home Phone [...] Providers + +------+ + | Care Occupational Medicine Officer Name | Role | Phone | [...] | | Malignant | Krunal | s [address] | | | | | neoplasm of | ,PhD [address] | [address] | | | | | lower third | [address] | [place] | | | | | of esophagus | [place], | Mailcode: | | | | | (HCC) | [place] | [address] [facility] | | | | | Procedures | [address] | Hospital | | | | | CT CHEST, | Phone: | [place], [place] | | | | | ABDOMEN AND | [phone] | [address] | | | | | PELVIS W IV | Fax: | Phone: | | | | | CONTRAST [place] | [phone] | [phone] | | | | | CAT SCAN OF | | Fax: | | | | | CHEST | | [phone] | | | | | CONTRAST [place] | | | | | | | [...] | neoplasm of | ,PhD [address] | [address] | | | | | lower third | [address] | Katherine French | | | | | of esophagus | [place], | Mailcode: | | | | | (HCC) | [place] | [address] [facility] | | | | | Procedures | [address] | Hospital | | | | | CT CHEST, | Phone: | [place], [place] | | | | | ABDOMEN AND | [phone] | [address] | | | | | PELVIS W IV | Fax: | Phone: | | | | | CONTRAST [place] | [phone] | [phone] | | | | | CAT SCAN OF | | Fax: | | | | | CHEST | | [phone] | | | | | CONTRAST [place] | | | | | | | [...] | 2019 | Encounter | Services at [facility] | ,PhD [address] | | | | | [address] | [place], [place] | | | | | Katherine French Mailcode: | [address] | | | | | [address] [facility] | [phone] | | | | | [place], [place] | | | | | | [address] | | | | | | [phone] | | | +--------+ + + + [...] documented as of this encounter Progress Notes Maryjo Ryan RT - 02/17/2019 10:30 AM PDTClean, [...]
--- OUTSIDE RECORDS SUMMARY | ~2019-11-23 | XMS | Encounter Summary ---
Demographics + + + | Address | [address] | | | [place] [address] | + + + | Home Phone [...] Providers + +------+ + | Care Drum Handler Name | Role | Phone | + +------+ + | Christos Olivarez MD | PCP | | + +------+ + Encounter Details +--------+ + + + + | Date | Type | Department | Care Team | Description | +--------+ + + + + | 12/23/ | Blueprint Engineer | Hematology/Medical | Krunal Godoy, | | | 2019 | | Oncology at [place] | ,PhD [address] | | | | | for Health & Healing | [place], [place] | | | | | [address] | [address] | | | | | Mailcode: [place] | [phone] | | | | | for Health and | | | | | | [facility], [facility] 2 | | | | | | [place], [place] | | | | | | [address] | | | | | | [phone] | | | +--------+ + + + [...]
--- OUTSIDE RECORDS SUMMARY | ~2019-11-23 | XMS | Encounter Summary ---
Demographics + + + | Address | [address] | | | [place] [address] | + + + | Home Phone [...] Team Providers + +------+ + | Care Pricing Manager Name | Role | Phone | + +------+ + | Luis Leiva DO | PCP | | + +------+ + Encounter Details +--------+ + + + + | Date | Type | Department | Care Team | Description | +--------+ + + + + | 03/21/ | Wood Crew Supervisor | Digestive Health | Eleonora Ybarra, | Malignant neoplasm | | 2017 | | Center at [facility] [address] | MD [address] | of esophagus, | | | | [address] | Ave [place], [place] | unspecified location | | | | Mailcode: Center | [address] | ([facility]) (Primary Dx) | | | | for Health and | [phone] | | | | | [facility] 2 | | | | | | [place], [place] | | | | | | [address] | | | | | | [phone] | | | +--------+ + + + [...] | | + +------+--------+ + + | PATHOLOGY CONSULT - | Lab | Routin | Malignant neoplasm | Ordered: 03/28/2018 | | REVIEW OUTSIDE | | e | of esophagus, | | | SLIDES | | | unspecified location | | | | | | (HCC) | | + +------+--------+ + + documented as of this encounter Visit Diagnoses + + | Diagnosis | + + | Malignant neoplasm of esophagus, unspecified location (HCC) - Primary | + + documented in this encounter"
--- OUTSIDE RECORDS SUMMARY | ~2019-11-23 | XMS | Encounter Summary ---
Demographics + + + | Address | [address] | | | [place] [address] | + + + | Home Phone [...] Team Providers + +------+ + | Care Employee Communications Specialist Name | Role | Phone | + +------+ + | Crhistos Olivarez MD | PCP | | + +------+ + Encounter Details +--------+ + + + + | Date | Type | Department | Care Team | Description | +--------+ + + + + | 09/23/ | Lab | LAB SURGICAL | Krunal Godoy, | | | 2019 | Requisition | PATHOLOGY [address] | ,PhD [address] | | | | | [address] | [place], [place] | | | | | [place], [place] | [address] | | | | | [address] | [phone] | | | | | | | [...] + + documented in this encounter Results SURGICAL PATHOLOGY - TECHNICAL ONLY (ONLY [...] | + + + + + | [facility] | [address] | [place] [address] | | | PATHOLOGY | [address] | | | + + + + + documented in this encounter Visit Diagnoses + + | Diagnosis | + + | Secondary malignant neoplasm of skin (HCC) Secondary malignant neoplasm of skin | + + documented in this encounter"
--- OUTSIDE RECORDS SUMMARY | ~2019-11-23 | XMS | Encounter Summary ---
Demographics + + + | Address | [address] | | | [place] [address] | + + + | Home Phone [...] Providers + +------+ + | Care Meat Service Team Member Name | Role | Phone | + +------+ + | Christos Olivarez MD | PCP | | + +------+ + Encounter Details +--------+ + + + + | Date | Type | Department | Care Team | Description | +--------+ + + + + | 12/05/ | Human Resources Benefits Administrator | Hematology | Krunal Godoy, | Malignant neoplasm | | 2019 | | Oncology Study [address] | ,PhD [address] | of esophagus, | | | | [address] | Ave [place], [place] | unspecified location | | | | Mailcode: CH7M | [address] | ([facility]) (Primary Dx) | | | | [facility] | [phone] | | | | | and [place], | | | | | | [facility] | | | | | | Floor [place], [place] | | | | | | [address] | | | | | | [phone] | | | +--------+ + + + [...] [facility] | [address] | [place] [address] | | | SERVICES, CORE | [address] [...] [facility] | [address] | [place] [address] | | | SERVICES, CORE | PARK [...] | + + + + + | [facility] | [address] | [place] [address] | | | SERVICES, CORE | [address] | | | + + + + + documented in this encounter Visit Diagnoses + + | Diagnosis | + + | Malignant neoplasm of esophagus, unspecified location (HCC) - Primary | + + documented in this encounter"
--- OUTSIDE RECORDS SUMMARY | ~2019-11-23 | XMS | Encounter Summary ---
Demographics + + + | Address | [address] | | | [place] [address] | + + + | Home Phone [...] Team Providers + +------+ + | Care Surveillance Manager Name | Role | Phone | + +------+ + | Christos Olivarez MD | PCP | | + +------+ + Encounter Details +--------+ + + + + | Date | Type | Department | Care Team | Description | +--------+ + + + + | 02/12/ | Client Services Vice President | Hematology | Krunal Godoy, | Malignant neoplasm | | 2019 | | Oncology Study [address] | ,PhD [address] | of lower third of | | | | [address] | Ave [place], [place] | esophagus (HCC) | | | | Mailcode: CH7M | [address] | (Primary Dx) | | | | [facility] | [phone] | | | | | and [place], | | | | | | [facility] | | | | | | [place], [place] | | | | | | [address] | | | | | | [phone] | | | +--------+ + + + [...] [facility] | [address] | [place] [address] | | | SERVICES, CORE | [address] [...] [facility] | [address] | [place] [address] | | | SERVICES, CORE | PARK [...] | + + + + + | [facility] | [address] | [place] [address] | | | SERVICES, CORE | [address] | | | + + + + + documented in this encounter Visit Diagnoses + + | Diagnosis | + + | 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
--- OUTSIDE RECORDS SUMMARY | ~2019-11-23 | XMS | Encounter Summary ---
Demographics + + + | Address | [address] | | | [place] [address] | + + + | Home Phone [...] Team Providers + +------+ + | Care Architectural Model Maker Name | Role | Phone | [...] | | | | lower third | [address] | Mailcode: | | | | | of esophagus | [address] | Center for | | | | | Procedures | [place], [place] | Health and | | | | | [place] | [address] | Healing, | | | | | SERVICES | Phone: | Building [address] | | | | | PROVIDED | [phone] | [place], [place] | | | | | PART OF [place] | Fax: | [address] | | | | | INJ | [phone] | Phone: | | | | | NIVOLUMAB 1 | | [phone] | | | | | MG IN EST | | Fax: | | | | | PATIENT | | [phone] | | | | | LEVEL V | | | | | | | Study IRB: | | | | | | | [address] Study | | | | | | [...] | 2019 | Visit | Oncology at [place] | POOJA Leger [address] | of lower third of | | | | for Health & Healing | [address] | esophagus (HCC) | | | | [address] | [place], [place] | (Primary Dx); | | | | Mailcode: [place] | [address] | Clinical trial exam; | | | | for Health and | [phone] | Encounter for | | | | [facility], [facility] 2 | | antineoplastic | | | | [place], [place] | | immunotherapy; | | | | [address] | | Elevated liver | | | | [phone] | | enzymes | +--------+---------+ + + [...] or no response, score 3) - 07/31/2018 [facility] Medical oncology evaluation- offered enrollment [...] improved mood. Yun Ronquillo M.S., PA-C Physician [employer] Consultant Medical Oncology Pager [phone] Research Note Study #: [id number] Patient Name: Jacob Sapp Patient Medical/Surgical History Date Cervical spinal stenosis 1997 Coronary artery disease - diagnosed on angiogram when experienced chest pain - treated with medications, pain attributed to esophageal spasm, never had [place] or stent 2007 H/O Diverticulosis 1997 Hernia, [...] salve 06/2018 Thin layer Topically PRN Pain Csear velasquez oil 08/05/2018 1-2 drops PO DAILY [...]
--- OUTSIDE RECORDS SUMMARY | ~2019-11-23 | XMS | Encounter Summary ---
Demographics + + + | Address | [address] | | | [place] [address] | + + + | Home Phone [...] Team Providers + +------+ + | Care Verifying Specialist Name | Role | Phone | [...] + + + + | 10/15/ | Clinical | Laboratory at [facility] | | Lab Draw | | 2018 | Support | [address] | | | | | Staff | [place], [place] | | | | | | [address] | | | | | | [phone] | | | +--------+ + + + [...] encounter Progress Notes Daisy Sheikh RN - 10/15/2018 8:20 AM PSTPIV started in [facility] for lab draw. CBC and CMP draw n and sent to POC lab. Other labs drawn and sent to core lab. PIV SL. Pt tolerated without i ncident. Pt discharged to provider visit. documented in this encou nter Plan of Treatment Not on filedocumented as of this encounter Procedures + +--------+ + + + | Procedure Name | Priori | Date/Time | Associated Diagnosis | Comments | | | ty | | | | + +--------+ + + + | CBC AND AUTO DIFF - | Routin | 10/15/2018 | Malignant neoplasm | Results for this | | [facility] | e | 8:22 AM | of lower third of | procedure are in the | | | | PST | esophagus (HCC) | results section. | + +--------+ + + + | TSH W/REFLEX TO FREE | Routin | 10/15/2018 | Malignant neoplasm | Results for this | | T4(IF ABNORMAL) | e | 8:22 AM | of lower third of | procedure are in the | | | | PST | esophagus (HCC) | results section. | + +--------+ + + + | COMPLETE METABOLIC | Routin | 10/15/2018 | Malignant neoplasm | Results for this | | PANEL - OLP | e | 8:22 AM | of lower third of | procedure are in the | | | | PST | esophagus (HCC) | results section. | + +--------+ + + + | CBC WITH AUTO DIFF - | Routin | 10/15/2018 | Malignant neoplasm | Results for this | | OLP | e | 8:22 AM | of lower third of | procedure are in the | | | | PST | esophagus (HCC) | results section. | + +--------+ + + + | [facility] - COMPLETE | Routin | 10/15/2018 | Malignant neoplasm | Results for this | | METABOLIC SET | e | 8:22 AM | of lower third of | procedure are in the | | | | PST | esophagus (HCC) | results section. | + +--------+ + + + | FREE T3, SERUM | Routin | 10/15/2018 | Malignant neoplasm | Results for this | | | e | 8:22 AM | of lower third of | procedure are in the | | | | PST | esophagus (HCC) | results section. | + +--------+ + + + | T3 TOTAL, SERUM | Routin | 10/15/2018 | Malignant neoplasm | Results for this | | | e | 8:22 AM | of lower third of | procedure are in the | | | | PST | esophagus (HCC) | results section. | + +--------+ + + + | LDH TOTAL, PLASMA | Routin | 10/15/2018 | Malignant neoplasm | Results for this | | | e | 8:22 AM | of lower third of | procedure are in the | | | | PST | esophagus (HCC) | results section. | + +--------+ + + + | AMYLASE, PLASMA | Routin | 10/15/2018 | Malignant neoplasm | Results for this | | | e | 8:22 AM | of lower third of | procedure are in the | | | | PST | esophagus (HCC) | results section. | + +--------+ + + + documented in this encounter Results AMYLASE, PLASMA (10/15/2018 8:22 [...] [facility] | [address] | [place] [address] | | | SERVICES, CORE | PARK [...] | + + + + + | [facility] | [address] [facility] | [place] [address] | | | SERVICES, CORE | PARK [...] | | this test in the [facility] | | | | | | Laboratory Test | | | | | | Directory | | | | | | (Second Sight.Virally).Performed | | | | | | by [facility],[address] | | | | | | [address], [facility] [place] | | | | | | [address] | | | | | | [phone]. | | | | | | [facility], Chandrakant Gasca MD, | | | [...] [facility] | [address] | [place], [place] | | | [facility] | | [address] | | + + + + + T3 TOTAL, SERUM (10/15/2018 8:22 AM PST) + +-------+ + + + | Component | Value | Ref Range | Performed | Pathologist | | | | | At | Signature | + +-------+ + + + | T3, TOTAL | 89 | 87 - 196 ng/dL | [facility] [...] + | [facility] - | [address] | [place] [address] | | | [place] | | | | + + + + + CBC AND AUTO DIFF - [facility] (10/15/2018 8:22 AM PST) + + + + + + | Component | Value | Ref Range | Performed | Pathologist | | | | | At | Signature | + + + + + + | WHITE CELL | 3.87 | 3.50 - 10.80 | [facility] | [...] + + + | HEMOGLOBIN | 10.4 | g/dL | [facility] | | | | | | LABORATORY | | | | | | SERVICES, | | | | | | [facility] | [facility] + | | | | | | HEALING | | + + + + + + | HEMATOCRIT | 30.1 (L) | 41.0 - 53.0 [...] + + + | RDW SD | 43.3 | 35.1 - 46.3 fL | [facility] | | | | | | [facility] | | | | | | SERVICES, | | | | | | [facility] | [facility] + | | | | | | HEALING | | + + + + + + | PLATELET | 176 | 150 - 400 K/cu | [facility] | | | COUNT | | mm | LABORATORY | | | | | | SERVICES, | | | | | | [facility] | | [facility] + | | | | | | HEALING | | + + + + + + | MPV | 8.3 (L) | 9.7 - 12.3 fL | [facility] | | | | | | LABORATORY | | | | | | SERVICES, | | | | | | [facility] | | | [facility] + | | | | | | HEALING | | + + + + + + | NEUTROPHIL | 71.8 (H) | 50.0 - 70.0 % | [facility] | | | % | | | LABORATORY | | | | | | SERVICES, | | | | | | [facility] | | | | [facility] + | | | | | | HEALING | | + + + + + + | LYMPHOCYTE | 16.0 (L) | 18.0 - 42.0 % | [...] + + + + | NEUTROPHIL | 2.78 | 1.80 - 7.70 | [facility] | | | # | | K/cu mm | LABORATORY | | | | | | SERVICES, | | | | | | [facility] | | | | | [facility] + | | | | | | HEALING | | + + + + + + | LYMPHOCYTE | 0.62 (L) | 1.00 - 4.80 | [facility] | | | # | | K/cu mm | LABORATORY | | | | | | SERVICES, | | | | | | [facility] | | | | | [facility] + | | | | | | HEALING | | + + + + + + | MONOCYTE # | 0.37 | 0.10 - 0.90 | [facility] | [...] + | [facility] | [address] | [place] [address] | | | SERVICES, [facility] | | | | | HEALTH + HEALING | | | | + + + + + [facility] - COMPLETE METABOLIC SET (10/15/2018 8:22 AM PST) + +---------+ + + + | Component | Value | Ref Range | Performed | Pathologist | | | | | At | Signature | + +---------+ + + + | GLUCOSE, | 132 (H) | 70 - 99 mg/dL | [...] +---------+ + + + | POTASSIUM, | 3.1 (L) | 3.4 - 5.0 | [facility] [...] +---------+ + + + | TOTAL | 6.3 | 6.1 - 7.9 g/dL | [facility] [...] +---------+ + + + | AST(SGOT) | 36 | <=41 U/L | [facility] | | | | | | LABORATORY | | | | | | SERVICES, | | | | | | [facility] | | [facility] | | | [facility] + | | | | | | HEALING | | + +---------+ + + + | ALT (SGPT) | 30 | <=60 U/L | [facility] | | [...] | + + + + + | [facility] | [address] | [place] [address] | | | SERVICES, [facility] | | | | | HEALTH + HEALING | | | | + + + + + TSH W/REFLEX TO FREE T4(IF ABNORMAL) (10/15/2018 8:22 AM PST) + +-------+ + + + | Component | Value | Ref Range | Performed | Pathologist | | | | | At | Signature | + +-------+ + + + | TSH | 1.13 | 0.46 - 5.56 | [facility] | [...] | + + + + + | [facility] | [address] | [place] [address] | | | SERVICES, JUSTIN | [address] | | | + + + + + documented in this encounter Visit Diagnoses + + | Diagnosis | + + | 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
--- OUTSIDE RECORDS SUMMARY | ~2019-11-23 | XMS | Encounter Summary ---
Demographics + + + | Address | [address] | | | [place] [address] | + + + | Home Phone [...] Providers + +------+ + | Care Health Sciences Department Chair Name | Role | Phone | + [...] | | 2019 | | [facility] | ,PhD [address] | (LEVOTHYROXINE 25 | | | | for Health & Healing | [place], [place] | mcg oral tablet) | | | | [address] | [address] | | | | | Mailcode: [facility] | [phone] | | | | | for Health and | | | | | | Healing, [address] | | | | | | [place], [place] | | | | | | [address] | | | | | | [phone] | | | +--------+--------+ + + + [...]
--- OUTSIDE RECORDS SUMMARY | ~2019-11-23 | XMS | Encounter Summary ---
Demographics + + + | Address | [address] | | | [place] [address] | + + + | Home Phone [...] Team Providers + +------+ + | Care Nut Chopper Name | Role | Phone | + +------+ + | Christos Olivarez MD | PCP | | + +------+ + Encounter Details +--------+ + + + + | Date | Type | Department | Care Team | Description | +--------+ + + + + | 05/15/ | MyChart | Diagnostic Imaging | | Appointment Reminder | | 2019 | Encounter | Services [address] | | | | | [address] | | | | | | [place], [place] | | | | | | [address] | | | +--------+ + + + [...]
--- OUTSIDE RECORDS SUMMARY | ~2019-11-23 | XMS | Encounter Summary ---
Demographics + + + | Address | [address] | | | [place] [address] | + + + | Home Phone [...] Providers + +------+ + | Care Computer Peripheral Equipment Operator Name | Role | Phone [...] | [address] | [address] [facility] [address] | | | | | lower third | [facility] | [facility] | | | | | of esophagus | [facility] | Rd | | | | | Esophagus | Road | [facility] [place] | | | | | Ca | [facility] [place] | [address] | | | | | Procedures | [address] | Phone: | | | | | Consult, | Phone: | [phone] | | | | | Sage Wilkins | [phone] | Fax: | | | | | | Fax: | [phone] | | | | | | [phone] | | +--------+--------+ + + + + Encounter Details +--------+ + + + + | Date | Type | Department | Care Team | Description | +--------+ + + + + | 01/17/ | Hospital | Radiation Oncology | | | | 2017 | Encounter | at [facility] [address] | | | | | | [place] | | | | | | [id number] [facility] | | | | | | [facility]ITAL [place], | | | | | | [place] [address] | | | | | | [phone] | | | +--------+ + + + [...]
--- OUTSIDE RECORDS SUMMARY | ~2019-11-23 | XMS | Encounter Summary ---
Demographics + + + | Address | [address] | | | [place] [address] | + + + | Home Phone [...] Providers + +------+ + | Care Senior Accounting Clerk Name | Role | Phone | [...] at [facility] [address] | [address] [facility] | | | | Staff | [place] | [place], [place] | | | | | Marisol/[id number] [facility] | [address] | | | | | [facility], | | | | | | [place] [address] | | | | | | [phone] | | | +--------+ + + + [...] Dr. Barrera, Refill of Ondansetron sent to [place] pharmacy and new antiemetic med called Promethazine sent t o [place] pharmacy as well. Pt was instructed by [...]
--- OUTSIDE RECORDS SUMMARY | ~2019-11-23 | XMS | Encounter Summary ---
Demographics + + + | Address | [address] | | | [place] [address] | + + + | Home Phone [...] Team Providers + +------+ + | Care Saw Repairer Name | Role | Phone | [...] + + + + | 11/09/ | Documentati | Endoscopic | Lab, Gi Procedure | Medical Records | | 2017 | on | Procedural Unit at | | Review | | | | Nory Monreal [address] | | | | | | [address] | | | | | | Mailcode: UHN83 | | | | | | [facility] | | | | | | [address] [place], [place] | | | | | | [address] | | | | | | [phone] | | | +--------+ + + + [...]
--- OUTSIDE RECORDS SUMMARY | ~2019-11-23 | XMS | Encounter Summary ---
Demographics + + + | Address | [address] | | | [place] [address] | + + + | Home Phone [...] Team Providers + +------+ + | Care Mri Technologist Name | Role | Phone | + [...] [address] | | | | | [address] | [place], [place] | | | | | Mailcode: [place] | [address] | | | | | for Health and | [phone] | | | | | Healing, [address] | | | | | | [place], [place] | | | | | | [address] | | | | | | [phone] | | | +--------+ + + + [...]
--- OUTSIDE RECORDS SUMMARY | ~2019-11-23 | XMS | Encounter Summary ---
Demographics + + + | Address | [address] | | | [place] [address] | + + + | Home Phone [...] Team Providers + +------+ + | Care Echocardiologist Name | Role | Phone | + +------+ + | Luis Leiva DO | PCP | | + +------+ + Encounter Details +--------+ + + + + | Date | Type | Department | Care Team | Description | +--------+ + + + + | 03/21/ | Repair Mechanic | Digestive Health | Eleonora Ybrara, | Malignant neoplasm | | 2017 | | Center at [facility] [address] | MD [address] | of esophagus, | | | | [address] | [address] [place], [place] | unspecified location | | | | Mailcode: Center | [address] | ([facility]) (Primary Dx) | | | | for Health and | [phone] | | | | | [facility] [address] | | | | | | [place], [place] | | | | | | [address] | | | | | | [phone] | | | +--------+ + + + [...]
--- OUTSIDE RECORDS SUMMARY | ~2019-11-23 | XMS | Encounter Summary ---
Demographics + + + | Address | [address] | | | [place] [address] | + + + | Home Phone [...] Providers + +------+ + | Care Contract Technician Name | Role | Phone | + +------+ + | Christos Olivarez MD | PCP | | + +------+ + Reason for Visit +--------+ + | Reason | Comments | +--------+ + | Other | Calling to schedule PET Scan | +--------+ + Encounter Details +--------+ + + + + | Date | Type | Department | Care Team | Description | +--------+ + + + + | 08/14/ | Telephone | Hematology/Medical | Krunal oGdoy, | Other (Calling to | | 2019 | | [facility] [place] | ,PhD [address] | schedule PET Scan) | | | | for Health & Healing | [address] [place], [place] | | | | | [address] | [address] | | | | | Mailcode: [place] | [phone] | | | | | for Health and | | | | | | Healing, [address] | | | | | | [place], [place] | | | | | | [address] | | | | | | [phone] | | | +--------+ + + + [...]
--- OUTSIDE RECORDS SUMMARY | ~2019-11-23 | XMS | Encounter Summary ---
Demographics + + + | Address | [address] | | | [place] [address] | + + + | Home Phone [...] Team Providers + +------+ + | Care Horticultural Farm Manager Name | Role | Phone | [...] Rd | | | | | | [place], [place] | | | | | | [address] | | | +--------+ + + + [...]
--- OUTSIDE RECORDS SUMMARY | ~2019-11-23 | XMS | Encounter Summary ---
Demographics + + + | Address | [address] | | | [place] [address] | + + + | Home Phone [...] Providers + +------+ + | Care Education Faculty Member Name | Role | Phone | [...] | | | neoplasm of | ,PhD [address] | | | | | | lower third | [address] | | | | | | of esophagus | [place], | | | | | | (HCC) | [place] | | | | | | Procedures | [address] | | | | | | CT CHEST, | Phone: | | | | | | ABDOMEN AND | [phone] | | | | | | PELVIS W IV | Fax: | | | | | | CONTRAST | [phone] | | + +--------+ + + + [...] | | | | of esophagus | [place], | | | | | | (HCC) | [place] | | | | | | Procedures | [address] | | | | | | CT CHEST, | Phone: | | | | | | ABDOMEN AND | [phone] | | | | | | PELVIS W IV | Fax: | | | | | | CONTRAST | [phone] | | + +--------+ + + + + Encounter Details +--------+ + + + + | Date | Type | Department | Care Team | Description | +--------+ + + + + | 08/13/ | Hospital | Diagnostic Imaging | Krunal Godoy, | | | 2019 | Encounter | Services at [facility] | ,PhD [address] | | | | | [address] | [place], [place] | | | | | Katherine French Mailcode: | [address] | | | | | [address] [facility] | [phone] | | | | | [place], [place] | | | | | | [address] | | | | | | [phone] | | | +--------+ + + + [...] [facility] | [address] | [place], [place] | | | MARISELA MATT [facility] | [facility] | [address] | | | TESTS | | | [...]
--- OUTSIDE RECORDS SUMMARY | ~2019-11-23 | XMS | Encounter Summary ---
Demographics + + + | Address | [address] | | | [place] [address] | + + + | Home Phone [...] Team Providers + +------+ + | Care It Infrastructure Manager Name | Role | Phone | [...] + + | 04/10/ | Hospital | [facility] [address] | Eleonora Ybarra, | | | 2017 | Encounter | [address] | [address] | | | | | [address] | [place], [place] | | | | | [place]aitlin [place], | [address] | | | | | [place] [address] | [phone] | | | | | [phone] | | | +--------+ + + + [...] + +--------+ + + + | NON VERTICAL BORER CYTOLOGY | Routin | 04/10/2018 | | [...] Preoperative Diagnosis: esophageal cancer | | | [id number] Postoperative Diagnosis: same Procedure: 1. | | | Diagnostic laparoscopy 2. Intraabdominal washings 3. Jejunostomy | | | tube exchange 4. EGD Surgeon Eleonora Ybarra MD | | | Optoelectronic Technician(s): Rand Wallace MD Indication: A 67 y.o. [...] | MIRACLE FERRARI MD General Surgery Resident [facility] | | | [facility] Pager [phone] I was present for the entire | | | procedure on 04/10/18 as described in the note for this encounter. | | | Eleonora Ybarra MD [facility] [address] | | | [address] [place] [address] | | + + + SURGICAL PATHOLOGY [...] number | | | | | | [id number]. Stomach, | | | | | | [...] | + + + + + | [facility] | [address] | [place] [address] | | | PATHOLOGY | [address] | | | + + + + + NON VERTICAL BORER CYTOLOGY (04/10/2018 8:32 AM PDT) + + [...] | + + + + + | [facility] | [address] | [place] [address] | | | PATHOLOGY | [address] [...]
--- OUTSIDE RECORDS SUMMARY | ~2019-11-23 | XMS | Encounter Summary ---
Demographics + + + | Address | [address] | | | [place] [address] | + + + | Home Phone [...] Team Providers + +------+ + | Care Relay Associate Name | Role | Phone | [...] | [address] | [address] [facility] | | | | | lower third | Veterans | [facility] | | | | | of esophagus | [facility] | Rd | | | | | Esophagus | Road | [facility] [place] | | | | | Ca | [facility] [place] | [address] | | | | | Procedures | [address] | Phone: | | | | | Consult, | Phone: | [phone] | | | | | Sage Wilkins | [phone] | Fax: | | | | | | Fax: | [phone] | | | | | | [phone] | | +--------+--------+ + + + + Encounter Details +--------+ + + + + | Date | Type | Department | Care Team | Description | +--------+ + + + + | 01/11/ | Hospital | Radiation Oncology | | | | 2018 | Encounter | at [facility] [address] | | | | | | [place] | | | | | | [id number] [facility] | | | | | | HOSPITAL [place], | | | | | | [place] [address] | | | | | | [phone] | | | +--------+ + + + [...]
--- OUTSIDE RECORDS SUMMARY | ~2019-11-23 | XMS | Encounter Summary ---
Demographics + + + | Address | [address] | | | [place] [address] | + + + | Home Phone [...] Team Providers + +------+ + | Care Delivery Rep Name | Role | Phone | + +------+ + | Christos Olivarez MD | PCP | | + +------+ + Encounter Details +--------+ + + + + | Date | Type | Department | Care Team | Description | +--------+ + + + + | 05/22/ | Pharmacy | Outpatient Retail | | | | 2017 | Visit | [facility] | | | | | | [address] | | | | | | [address] [place], [place] | | | | | | [address] | | | | | | [phone] | | | +--------+ + + + [...]
--- OUTSIDE RECORDS SUMMARY | ~2019-11-23 | XMS | Encounter Summary ---
Demographics + + + | Address | [address] | | | [place] [address] | + + + | Home Phone [...] Team Providers + +------+ + | Care Screen Handler Name | Role | Phone | [...] | 2018 | | Center at [facility] [address] | [address] | | | | | [address] | [facility], | | | | | Mailcode: [place] | [place] [address] | | | | | for [facility] and | [phone] | | | | | [place] [address] | | | | | | [place], [place] | | | | | | [address] | | | | | | [phone] | | | +--------+ + + + [...]
--- OUTSIDE RECORDS SUMMARY | ~2019-11-23 | XMS | Encounter Summary ---
Demographics + + + | Address | [address] | | | [place] [address] | + + + | Home Phone [...] Team Providers + +------+ + | Care Jewelry Facer Name | Role | Phone | + [...] | | | neoplasm of | ,PhD [address] | [address] | | | | | esophagus, | [address] | [address] | | | | | unspecified | Veterans | [address] | | | | | | [address] | [place], [place] | | | | | | [facility] | [address] Phone: | | | | | | [place] [address] | [phone] | | | | | | Phone: | Fax: | | | | | | [phone] | [phone] | | | | | | Fax: | | | | | | | [phone] | | +--------+--------+ + + + + Encounter Details +--------+---------+ + + + | Date | Type | Department | Care Team | Description | +--------+---------+ + + + | 08/21/ | Office | Hematology/Medical | Marie Liz, | Malignant neoplasm | | 2018 | Visit | [facility]cology at [place] | [address] | of lower third of | | | | for Health & Healing | Road [address] | esophagus (HCC) | | | | [address] | [place] [address] | (Primary Dx) | | | | Mailcode: [facility] | [phone] | | | | | for Health and | | | | | | Healing, [address] | | | | | | [place], [place] | | | | | | [address] | | | | | | [phone] | | | +--------+---------+ + + + [...] he has consented to participate in the "[id number]: A Randomized, Mu lticenter, Double Blind, Phase [...] 70.2 kg IV access: PIV RD/SW referral: gis software engineer at [place] established Multi-D MD: Chemotherapy teaching: done per chemo binder and ICF My Chart access: active and encouraged He reports the following medical and surgical history at baseline: Past Medical History: Diagnosis Date Cervical spinal stenosis 1997 Coronary artery disease 2007 diagnosed on angiogram when experienced chest pain - treated with medications, pain attr ibuted to esophageal spasm, never had DC or stent H/O Diverticulosis 1997 Hernia, hiatal, [...] [facility] [place] [place]. Radiation compl eted at [facility]. Marie Murphy Md - 08/21 12:30 [...] response, score 3) - 07/31/2018 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 Past Medical History: Diagnosis Date Cervical spinal stenosis Coronary artery disease 2007 diagnosed on angiogram when experienced chest pain - treated with medications, pain attrib uted to esophageal spasm, never had DC or stent Diverticulosis GERD without esophagitis Hernia, [...]
--- OUTSIDE RECORDS SUMMARY | ~2019-11-23 | XMS | Encounter Summary ---
Demographics + + + | Address | [address] | | | [place] [address] | + + + | Home Phone [...] Team Providers + +------+ + | Care Paint Spray Tender Name | Role | Phone | [...] | | | | lower third | [address] | Mailcode: | | | | | of esophagus | [address] | Center for | | | | | Procedures | [place], [place] | Health and | | | | | [place] | [address] | Healing, | | | | | SERVICES | Phone: | [address] | | | | | PROVIDED | [phone] | [place], [place] | | | | | PART OF [place] | Fax: | [address] | | | | | INJ | [phone] | Phone: | | | | | NIVOLUMAB 1 | | [phone] | | | | | MG Study | | Fax: | | | | | IRB: [id number] | | [phone] | | | | | Study Title: [...] | Oncology at [facility] | [address] [place], | | | | | [address] | [place] [address] | | | | | Mailcode: [place] | | | | | | for Health and | | | | | | [facility], [facility] 2 | | | | | | [place], [place] | | | | | | [address] | | | | | | [phone] | | | +--------+ + + + [...] | | 09/17/18 at 1115, Pt ID: [id number], | | | | | | | Administer using a 0.2 micron | | | | | | | filter. Flush line with 15-20 mL | | | | | | | of normal saline. For | | | | | | | investigational use only, HIGH | | | | | | | ALERT MEDICATION IRB:[id number], | | | | | | | Protocol:[id number], Infuse using | | | | | | | 0.2 micron filter., | | | | | | + +---------+ +--------+-------+------+ +---+---+ | | | +---+---+ documented in this encounter"
--- OUTSIDE RECORDS SUMMARY | ~2019-11-23 | XMS | Encounter Summary ---
Demographics + + + | Address | [address] | | | [place] [address] | + + + | Home Phone [...] Team Providers + +------+ + | Care Skid Adzer Name | Role | Phone | + [...] | | | neoplasm of | ,PhD [address] | | | | | | lower third | [address] | | | | | | of esophagus | [place], | | | | | | (HCC) | [place] | | | | | | Procedures | [address] | | | | | | CT CHEST, | Phone: | | | | | | ABDOMEN AND | [phone] | | | | | | PELVIS W IV | Fax: | | | | | | CONTRAST | [phone] | | + +--------+ + + + [...] | | | | of esophagus | [place], | | | | | | (HCC) | [place] | | | | | | Procedures | [address] | | | | | | CT CHEST, | Phone: | | | | | | ABDOMEN AND | [phone] | | | | | | PELVIS W IV | Fax: | | | | | | CONTRAST | [phone] | | + +--------+ + + + + Encounter Details +--------+ + + + + | Date | Type | Department | Care Team | Description | +--------+ + + + + | 05/20/ | Hospital | Radiology/Imaging | Krunal Godoy, | | | 2019 | Encounter | Lab at [facility] [address] | ,PhD [address] | | | | | [address] Mailcode: | [place], [place] | | | | | [facility] | [address] | | | | | Health and Healing, | [phone] | | | | | [address] | | | | | | [place], [place] | | | | | | [address] | | | | | | [phone] | | | +--------+ + + + [...]
--- OUTSIDE RECORDS SUMMARY | ~2019-11-23 | XMS | Encounter Summary ---
Demographics + + + | Address | [address] | | | [place] [address] | + + + | Home Phone [...] Team Providers + +------+ + | Care Stump Blower Name | Role | Phone | + +------+ + | Christos Olivarez MD | PCP | | + +------+ + Encounter Details +--------+------+ + + + | Date | Type | Department | Care Team | Description | +--------+------+ + + + | 07/09/ | Lab | Laboratory at [facility] | | Malignant neoplasm | | 2018 | | [address] | | of lower third of | | | | [place], [place] | | esophagus (HCC) | | | | [address] | | | | | | [phone] | | | +--------+------+ + + + [...] + + | RESEARCH | Routin | 07/09/2018 | Malignant neoplasm | Results for this | | VENIPUNCTURE ONLY | e | 9:54 AM | of lower third of | procedure are in the | | (PHLEBOTOMY DRAW) | | PDT | esophagus (HCC) | results section. | + +--------+ + + + documented in this encounter Results RESEARCH VENIPUNCTURE ONLY (PHLEBOTOMY [...] | + + + + + | [facility] | [address] | [place] [address] | | | [facility] | | | | [...]
--- OUTSIDE RECORDS SUMMARY | ~2019-11-23 | XMS | Encounter Summary ---
Demographics + + + | Address | [address] | | | [place] [address] | + + + | Home Phone [...] Team Providers + +------+ + | Care Ship Boss Name | Role | Phone | + +------+ + | Christos Olivarez MD | PCP | | + +------+ + Encounter Details +--------+ + + + + | Date | Type | Department | Care Team | Description | +--------+ + + + + | 05/21/ | Cash Management Clerk | Cancer Genetics at | Daniel Barrera, | Malignant neoplasm | | 2019 | | [facility] | [address] | of esophagus, | | | | [address] | [address] | unspecified location | | | | [facility] | [place], [place] | (HCC) (Primary Dx) | | | | and Healing, | [address] | | | | | Building [address] | [phone] | | | | | [place], [place] | | | | | | [address] | | | | | | [phone] | | | +--------+ + + + [...] [facility] | [address] | [place] [address] | | | SERVICES, CORE | [address] | | | + + + + + documented in this encounter Visit Diagnoses + + | Diagnosis | + + | Malignant neoplasm of esophagus, unspecified location (HCC) - Primary | + + documented in this encounter"
--- OUTSIDE RECORDS SUMMARY | ~2019-11-23 | XMS | Encounter Summary ---
Demographics + + + | Address | [address] | | | [place] [address] | + + + | Home Phone [...] Providers + +------+ + | Care Concrete Placement Equipment Operator Name | Role | Phone | + +------+ + | Christos Olivarez MD | PCP | | + +------+ + Encounter Details +--------+ + + + + | Date | Type | Department | Care Team | Description | +--------+ + + + + | 08/18/ | Documentati | Hematology/Medical | Kruanl Godoy, | | | 2019 | on | Oncology at [place] | ,PhD [address] | | | | | for Health & Healing | [place], [place] | | | | | [address] | [address] | | | | | Mailcode: [place] | [phone] | | | | | for [facility] and | | | | | | [facility] 2 | | | | | | [place], [place] | | | | | | [address] | | | | | | [phone] | | | +--------+ + + + [...]
--- OUTSIDE RECORDS SUMMARY | ~2019-11-23 | XMS | Encounter Summary ---
Demographics + + + | Address | [address] | | | [place] [address] | + + + | Home Phone [...] Team Providers + +------+ + | Care Hands And Dial Inspector Name | Role | Phone | + +------+ + | Christos Olivarez MD | PCP | | + +------+ + Encounter Details +--------+------+ + + + | Date | Type | Department | Care Team | Description | +--------+------+ + + + | 07/09/ | Lab | Laboratory at [facility] | | Malignant neoplasm | | 2018 | | [address] | | of lower third of | | | | [place], [place] | | esophagus (HCC) | | | | [address] | | | | | | [phone] | | | +--------+------+ + + + [...] | + + + + + | [facility] | [address] | [place] [address] | | | [facility] | | | | | [...]
--- OUTSIDE RECORDS SUMMARY | ~2019-11-23 | XMS | Encounter Summary ---
Demographics + + + | Address | [address] | | | [place] [address] | + + + | Home Phone [...] Providers + +------+ + | Care Journalism Internship Name | Role | Phone | [...] Description | +--------+---------+ + + + | 01/03/ | Office | Radiation Oncology | Daniel Barrera, | Encounter for | | 2018 | Visit | at [facility] [address] | [address] | radiotherapy | | | | [place] | [address] | (Primary Dx) | | | | [id number] [facility] | [place], [place] | | | | | [facility], | [address] | | | | | [place] [address] | [phone] | | | | | [phone] | | | +--------+---------+ + + + [...] + + + | Blood Pressure | 119/67 | 01/03/2018 9:48 AM | | | | | PST | | + + + + + | Pulse | 72 | 01/03/2018 9:48 AM | | | | | PST | | + + + + + | Temperature | 36.7 C (98.1 F) | 01/03/2018 9:48 AM | | | | | PST | | + + + + + | Respiratory Rate | 18 | 01/03/2018 9:48 AM | | | | | PST | | + + + + + | Oxygen Saturation | 100% | 01/03/2018 9:48 AM | Room Air | | | | PST | | + + + + + | Inhaled Oxygen | - | - | | | Concentration | | | | + + + + + | Weight | 92.1 kg (203 lb) | 01/03/2018 9:48 AM | | | | | PST | | + + + + + | Height | - | - | | + + + + + | Body Mass Index | 30.87 | 12/06/2017 10:48 AM | | | | | PST | | + + + + + documented in this encounter Progress Notes Leif Lindsay MA - 01/03/2018 9:42 AM PSTFormatting of this note might be different fro m the original. Nursing Note Patient here for an On Treatment Visit. Completed 9 fractions of a planned 25. Current dose 1800 cGy of total 5000 cGy. Vitals/Pain Level: BP 119/67 | Pulse 72 | Temp (Src) 36.7 C (98.1 F) (Oral) | RR 18 | W t 92.1 kg (203 lb) | SpO2 100[Room Air[% | BMI 30.87 kg/(m^2) Pain Score: Wt Readings from Last 3 Encounters: 01/03/18 92.1 kg (203 lb) 12/27/17 90.7 kg (200 lb) 12/06/17 97.7 kg (215 lb 4.8 oz) No results for input(s): WBC, HB, HCT, PLT, BUN, CR, NA, K, MG in the last 720 hours. Daniel Craig MD - 01/03/2018 9:40 AM PSTI saw and evaluated Mr. Sapp with Dr. Olson and agree with her as sessment and plan. DANIEL BARRERA MD Dept of Radiation Medicine [facility] Cony Newton - 01/03/2018 9:40 AM PST 01/03/2018 9:56 AM 9 of 25 fractions Jacob Sapp is doing good. He is drinking water. He ate a bowl of chili last night. He we nt slowly, but it stayed down. He is able to eat cereal for breakfast. He feels that thing s are a little better. He has episodic nausea, mostly after chemotherapy which he gets on . OBJECTIVE: Vital Signs: BP 119/67 | Pulse 72 | Temp (Src) 36.7 C (98.1 F) (Oral) | RR 18 | Wt 92.1 kg (203 lb) | SpO2 100[Room Air[% | BMI 30.87 kg/(m^2) Pain Score: 0 Wt Readings from Last 3 Encounters: 01/03/18 92.1 kg (203 lb) 12/27/17 90.7 kg (200 lb) 12/06/17 97.7 kg (215 lb 4.8 oz) Physical exam is unremarkable. Vital signs documented in the nursing above. Chart reviewed. Continue with radiation. Radiation Oncology - On Treatment Visit Note ID: 67 y.o. male with [id number] esophageal adenocarcinoma (7 LN) 36-44cm from the [...] solid food by mouth, drinking liquids. Nausea Con L Sapp's mode of transportation is ambulatory. Skin: no erythema. J-tube site clean ASSESSMENT/PLAN: Compazine in addition to zofran The patient's chart and films were reviewed. Cont RT. DANIEL BARRERA MD documented in this enco unter Plan of Treatment Not on filedocumented as of this encounter Visit Diagnoses + + | Diagnosis | + + | Encounter for radiotherapy - Primary Radiotherapy | + + documented in this encounter"
--- OUTSIDE RECORDS SUMMARY | ~2019-11-23 | XMS | Encounter Summary ---
Demographics + + + | Address | [address] | | | [place] [address] | + + + | Home Phone [...] Team Providers + +------+ + | Care Sales Representative Uniforms Name | Role | Phone | + [...] | | | | | Procedures | [place], [place] | Health and | | | | | [place] | [address] | Healing, | | | | | SERVICES | Phone: | Building [address] | | | | | PROVIDED | [phone] | [place], [place] | | | | | PART OF [place] | Fax: | [address] | | | | | INJ | [phone] | Phone: | | | | | [address] | | [phone] | | | | | [place] EST | | Fax: | | | | | PATIENT | | [phone] | | | | | LEVEL V | | | | | | | Study IRB: | | | | | | | [id number] Study | | | | | | [...] Description | +--------+---------+ + + + | 06/17/ | Office | Hematology/Medical | Sergio Cr, | Malignant neoplasm | | 2019 | Visit | Oncology at [place] | [facility] [address] | of lower third of | | | | for Health & Healing | [facility] [address] | esophagus (HCC) | | | | [address] | [place], [place] | (Primary Dx); | | | | Mailcode: [place] | [address] | Fatigue, unspecified | | | | for Health and | [phone] | type; Clinical | | | | Healing, Building [address] | | trial exam; | | | | [place], [place] | | Malignant neoplasm | | | | [address] | | of abdominal | | | | [phone] | | esophagus (HCC); | | | | | | Malignant neoplasm | | | | | | of esophagus, | | | | | | unspecified location | | | | | | (HCC); Encounter | | | | | | for antineoplastic | | | | | | immunotherapy; | | | | | | Hypothyroidism due | | | | | | to medication | +--------+---------+ + + + Social History [...] + + + | Blood Pressure | 142/88 | 06/17/2019 10:59 AM | | | | | PDT | | + + + + + | Pulse | 52 | 06/17/2019 10:59 AM | | | | | PDT | | + + + + + | Temperature | 36.5 C (97.7 F) | 06/17/2019 10:59 AM | | | | | PDT | | + + + + + | Respiratory Rate | 14 | 06/17/2019 10:59 AM | | | | | PDT | | + + + + + | Oxygen Saturation | 100% | 06/17/2019 10:59 AM | | | | | PDT | | + + + + + | Inhaled Oxygen | - | - | | | Concentration | | | | + + + + + | Weight | 72.5 kg (159 lb 12.8 | 06/17/2019 10:59 AM | | | | oz) | PDT | | + + + + + | Height | - | - | | + + + + + | Body Mass Index | 25.23 | 05/20/2019 1:15 PM | | | [...] documented as of this encounter Progress Notes Sergio Cr PA-C - 06/17/2019 10:50 AM PDT ID: Jacob Sapp is a 68 [...] or no response, score 3) - 07/31/2018 [facility] Medical oncology evaluation- offered enrollment on [...] hold. Interval History: Ongoing Nivo/placebo study treatment. He reports more persistent fatigue in the last few cycles, whereas previously he would feel improved energy for about 10 days a nd then return to baseline. Now he feels that he doesn't typically get an energy boost. He a lso has been struggling with his appetite, and reports intermittent nausea symptoms when lyi ng flat in bed in the mornings. He is taking 20mg omeprazole daily. He reports intermittent hot flashes that cause him to sweat and self-resolve after about 10 minutes. There have been only a few episodes of this, and the first one started 4 months ago. He is taking zofran da marsha for nausea control, denies constipation. Takes synthroid daily. Review of Systems: Review of systems were obtained and reviewed with the patient today. Ple ase reference the scanned questionnaire, see HPI for pertinent positives. PFSH: I reviewed and updated. Good social support system. Physical Examination: BP 142/88 (BP Location: Left upper arm, Patient Position: Sitting) | Pulse 52 | Temp 36.5 C (97.7 F) (Oral) | Resp 14 | Wt 72.5 kg (159 lb 12.8 oz) | SpO2 100% | BMI 25.23 k g/m | BSA 1.85 m General: Well developed, fatigued appearing well nourished, adult male patient. HEENT: Wearing hearing aids. Anicteric sclerae. Oropharynx clear, mucous membranes moist. N o sinus congestion, mucositis, or thrush. Chest: CTAB; No crackles, cough, wheezing, or stridor. Relaxed respiratory effort. CV: RRR, no murmurs or gallops. Abd: Soft, nontender, nondistended. Normoactive bowel sounds. No masses. Skin: Dry and warm. No rashes or [...] 05/20/2019 MCV 102.9 05/20/2019 RDW 54.4 05/20/2019 CT CHEST, ABDOMEN AND PELVIS W IV CONTRAST Order: [id number] Performed: 05/20/2019 09:49 Status: Final result Visible [...] with gastric conduit. No thoracic adenopathy. No jsutina cardial effusions. Continued enlargement of the left [...] with diminished appetite and cold intolerance - I discussed the goals, objectives, risks, benefits, and toxicities of therapy and the pat ient wishes to proceed. - Will need close and frequent monitoring physical examinations and laboratory monitoring f or toxicities of ongoing immunotherapy 2. Low appetite, low grade nausea, intermittent, improved with olanzapine, sxs also c/w unc ontrolled gastritis despite 20mg omeprazole daily - increase to 40mg omeprazole daily - Continue Zyprexa - continue following with dietitian 3. Hypothyroidism -TSH/T4 WNL (06/17/2019) - Continue synthroid as prescribed 4. Mood: Ongoing, stable - pt previously reported increase in depressed mood, no SI/HI - not discussed today (06/17/2019) 5. Question of nodule in right lower quadrant abdominal oblique muscle. Discussed with radi ology and described prior complicated appendectomy with wound dehiscence and peritonitis. In this context, this seems to be non-metastatic. However will follow and if continues to enla rge, will obtain PET and potential biopsy. Sergio Cr PA-C HEMATOLOGY/MEDICAL ONCOLOGY AT [address] Mailcode: [place] [address] documented in this encounter Plan of Treatment Not on filedocumented as of this encounter Procedures + +--------+ + + + | Procedure Name | Priori | Date/Time | Associated Diagnosis | Comments | | | ty | | | | + +--------+ + + + | ADMINISTER | Routin | 06/17/2019 | | | | CHEMOTHERAPY PER | e | 11:27 AM | | | | TREATMENT PARAMETERS | | PDT | | | + +--------+ + + + | TSH W/REFLEX TO FREE | Routin | 06/17/2019 | Malignant neoplasm | Results for this | | T4(IF ABNORMAL) | e | 10:02 AM | of lower third of | procedure are in the | | | | PDT | esophagus (HCC) | results section. | | | | | Hypothyroidism due | | | | | | to medication | | + +--------+ + + + documented in this encounter Results TSH W/REFLEX TO FREE T4(IF ABNORMAL) (06/17/2019 10:02 AM PDT) + +-------+ + + + | Component | Value | Ref Range | Performed | Pathologist | | | | | At | Signature | + +-------+ + + + | TSH | 3.15 | 0.46 - 5.56 | [facility] | [...] | + + + + + | [facility] | [address] | [place] [address] | | | [facility] [place] | [address] [...] in clinical trial | + + | Malignant neoplasm of abdominal esophagus (HCC) Malignant neoplasm of abdominal | | esophagus | + + | Malignant neoplasm of esophagus, unspecified location (HCC) | + + | Encounter for antineoplastic immunotherapy | + + | Hypothyroidism due to medication | + + documented in this encounter"
--- OUTSIDE RECORDS SUMMARY | ~2019-11-23 | XMS | Encounter Summary ---
Demographics + + + | Address | [address] | | | [place] [address] | + + + | Home Phone [...] Team Providers + +------+ + | Care Bowl Topper Name | Role | Phone | + +------+ + | Christos Olivarez MD | PCP | | + +------+ + Encounter Details +--------+ + + + + | Date | Type | Department | Care Team | Description | +--------+ + + + + | 04/28/ | Procedure | Radiology/Imaging | | | | 2019 | Pass | Lab at [facility] [address] | | | | | | [address] Mailcode: | | | | | | [facility] | | | | | | Health and Healing, | | | | | | [facility] , | | | | | | Floor [place], [place] | | | | | | [address] | | | | | | [phone] | | | +--------+ + + + [...]
--- OUTSIDE RECORDS SUMMARY | ~2019-11-23 | XMS | Encounter Summary ---
Demographics + + + | Address | [address] | | | [place] [address] | + + + | Home Phone [...] Team Providers + +------+ + | Care Cocoa Butter Filter Operator Name | Role | Phone | [...] | [address] | [address] [facility] | | | | | lower third | [facility] | [facility] | | | | | of esophagus | [facility] | Rd | | | | | Esophagus | Road | [facility] [place] | | | | | Ca | [facility] [place] | [address] | | | | | Procedures | [address] | Phone: | | | | | Consult, | Phone: | [phone] | | | | | Sage [address] | [phone] | Fax: | | | | | | Fax: | [phone] | | | | | | [phone] | | +--------+--------+ + + + + Encounter Details +--------+ + + + + | Date | Type | Department | Care Team | Description | +--------+ + + + + | 01/18/ | Hospital | Radiation Oncology | | | | 2017 | Encounter | at [facility] [address] | | | | | | [place] | | | | | | [id number] [facility] | | | | | | HOSPITAL [place], | | | | | | [place] [address] | | | | | | [phone] | | | +--------+ + + + [...]
--- OUTSIDE RECORDS SUMMARY | ~2019-11-23 | XMS | Encounter Summary ---
Demographics + + + | Address | [address] | | | [place] [address] | + + + | Home Phone [...] Team Providers + +------+ + | Care Gang Supervisor Pipe Lines Name | Role | Phone | + +------+ + | Christos Olivarez MD | PCP | | + +------+ + Encounter Details +--------+ + + + + | Date | Type | Department | Care Team | Description | +--------+ + + + + | 02/18/ | Recruitment Manager | Hematology/Medical | Sergio Cr, | | | 2019 | | Oncology at [place] | [facility] [address] | | | | | for Health & Healing | [address] | | | | | [address] | [place], [place] | | | | | Mailcode: [place] | [address] | | | | | for Health and | [phone] | | | | | Man [facility] 2 | | | | | | [place], [place] | | | | | | [address] | | | | | | [phone] | | | +--------+ + + + [...]
--- OUTSIDE RECORDS SUMMARY | ~2019-11-23 | XMS | Encounter Summary ---
Demographics + + + | Address | [address] | | | [place] [address] | + + + | Home Phone [...] Providers + +------+ + | Care Supervisor Water Softener Service Name | Role | Phone | + [...] | | | | lower third | [address] | Mailcode: | | | | | of esophagus | [address] | Center for | | | | | Procedures | [place], [place] | Health and | | | | | [place] | [address] | Healing, | | | | | SERVICES | Phone: | [address] 2 | | | | | PROVIDED | [phone] | [place], [place] | | | | | PART OF [place] | Fax: | [address] | | | | | INJ | [phone] | Phone: | | | | | [address] | | [phone] | | | | | MG Study | | Fax: | | | | | IRB: [id number] | | [phone] | | | | | Study Title: [...] | Oncology at [facility] | [address] [place], | | | | | [address] | [place] [address] | | | | | Mailcode: [facility] | | | | | | for Health and | | | | | | [facility], [facility] 2 | | | | | | [place], [place] | | | | | | [address] | | | | | | [phone] | | | +--------+ + + + [...] Pt tolerated without incident. PKs drawn per employee benefits coordinator instructions and placed in [facility] bin for employee benefits coordinator machine pecan picker. PIV d/c'd and intact. 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 Refer to MAR and [...] | | 12/24/18 at 1030, Pt ID: [id number], | | | | | | | Administer using a 0.2 micron | | | | | | | filter. Flush line with 15-20 mL | | | | | | | of normal saline. For | | | | | | | investigational use only, HIGH | | | | | | | ALERT MEDICATION IRB:[id number], | | | | | | | Protocol:[id number], Infuse using | | | | | | | 0.2 micron filter., | | | | | | + +---------+ +--------+-------+------+ +---+---+ | | | +---+---+ documented in this encounter
--- OUTSIDE RECORDS SUMMARY | ~2019-11-23 | XMS | Encounter Summary ---
Demographics + + + | Address | [address] | | | [place] [address] | + + + | Home Phone [...] Team Providers + +------+ + | Care Visually Impaired Teacher Name | Role | Phone [...] Requisition | PATHOLOGY [address] | ,PhD [address] | | | | | [address] | [place], [place] | | | | | [place], [place] | [address] | | | | | [address] | [phone] | | | | | | | [...] | + + + + + | [facility] | [address] | [place] [address] | | | PATHOLOGY | [address] | | | + + + + + documented in this encounter Visit Diagnoses + + | Diagnosis | + + | Secondary malignant neoplasm of skin (HCC) Secondary malignant neoplasm of skin | + + documented in this encounter"
--- OUTSIDE RECORDS SUMMARY | ~2019-11-23 | XMS | Encounter Summary ---
Demographics + + + | Address | [address] | | | [place] [address] | + + + | Home Phone [...] Team Providers + +------+ + | Care Powder Operator Name | Role | Phone | [...] | | | | | | Rd [facility] | | | | | | Hospital Admitting | | | | | | Desk Located on the | | | | | | 9th floor | | | | | | [place], [place] | | | | | | [address] | | | +--------+ + + + [...]
--- OUTSIDE RECORDS SUMMARY | ~2019-11-23 | XMS | Encounter Summary ---
Demographics + + + | Address | [address] | | | [place] [address] | + + + | Home Phone [...] Team Providers + +------+ + | Care Sealer Sander Name | Role | Phone | + +------+ + | Christos Olivarez MD | PCP | | + +------+ + Encounter Details +--------+ + + + + | Date | Type | Department | Care Team | Description | +--------+ + + + + | 03/17/ | Cloth Checker | Hematology | Krunal Godoy, | | | 2019 | | Oncology Study [address] | ,PhD [address] | | | | | [address] | [place], [place] | | | | | Mailcode: [facility] | [address] | | | | | [facility] | [phone] | | | | | and Healing, | | | | | | [facility] | | | | | | Floor [place], [place] | | | | | | [address] | | | | | | [phone] | | | +--------+ + + + [...]
--- OUTSIDE RECORDS SUMMARY | ~2019-11-23 | XMS | Encounter Summary ---
Demographics + + + | Address | [address] | | | [place] [address] | + + + | Home Phone [...] Team Providers + +------+ + | Care Waste Handling Technician Name | Role | Phone | + +------+ + | Christos Olivarez MD | PCP | | + +------+ + Encounter Details +--------+ + + + + | Date | Type | Department | Care Team | Description | +--------+ + + + + | 08/12/ | Woodworking Shop Laborer | Center for | Krunal Godoy, | | | 2019 | | Hematologic | ,PhD [address] | | | | | Malignancies at [facility] | Ave [place], [place] | | | | | [address] | [address] | | | | | Mailcode: [place] | [phone] | | | | | for Health and | | | | | | [facility], [facility] 2 | | | | | | [place], [place] | | | | | | [address] | | | | | | [phone] | | | +--------+ + + + [...]
--- OUTSIDE RECORDS SUMMARY | ~2019-11-23 | XMS | Encounter Summary ---
Demographics + + + | Address | [address] | | | [place] [address] | + + + | Home Phone [...] Team Providers + +------+ + | Care Engagement Executive Name | Role | Phone | [...] at [address] | [facility] | with patient | | | Staff | [address] | [facility] [place] | | | | | [id number] [place] | [address] | | | | | [facility] [place] | | | | | [place] [address] | | | | | | [phone] | | | +--------+ + + + [...] staying with, Jacklyn.. The patient lives in [place], [place], but w ill he and his will be staying with their friend Elen in [place]. They plan to melody ochoa together daily [...]
--- OUTSIDE RECORDS SUMMARY | ~2019-11-23 | XMS | Encounter Summary ---
Demographics + + + | Address | [address] | | | [place] [address] | + + + | Home Phone [...] Team Providers + +------+ + | Care Educator Senior Clinical Name | Role | Phone | [...] + + | 07/11/ | Telephone | [facility] | Eleonora Ybarra, | Treatment Planning | | 2018 | | Center at [facility] [address] | MD [address] | | | | | [address] | Ave [place], [place] | | | | | Mailcode: [place] | [address] | | | | | [facility] and | [phone] | | | | | [facility] 2 | | | | | | [place], [place] | | | | | | [address] | | | | | | [phone] | | | +--------+ + + + [...]
--- OUTSIDE RECORDS SUMMARY | ~2019-11-23 | XMS | Encounter Summary ---
Demographics + + + | Address | [address] | | | [place] [address] | + + + | Home Phone [...] Team Providers + +------+ + | Care Chainstitch Seat Joiner Name | Role | Phone | + [...] | Gastroesopha | [address] | [address] | | | | | geal cancer | [facility] | [address] | | | | | (HCC) | Rd | [place], [place] | | | | | Procedures | [place] | [address] | | | | | REQUEST TO | [address] | Phone: | | | | | SURGERY | | [phone] | | | | | INSTITUTION LIBRARIAN | | Fax: | | | | | [place] | | [phone] | | | | | LAP,DIAGNOST | | | | | | | IC ABDOMEN | | | | | | | [place] LAP,DX | | | | | | | SURGICAL ABD | | | | | | | W/BIOPSY | | | | | | | MO UPPER GI | | | | | | | ENDOSCOPY,DI | | | | | | | AGNOSIS [place] | | | | | | | [...] | | | | geal cancer | [facility] | Mailcode: | | | | | (HCC) | Rd | [facility] | | | | | Procedures | [place], [place] | for Health | | | | | CT CHEST, | [address] | and Healing, | | | | | ABDOMEN AND | | Building 1, | | | | | [address] | | 3rd Floor | | | | | CONTRAST | | [place], [place] | | | | | | | [address] | | | | | | | Phone: | | | | | | | [phone] | | | | | | | Fax: | | | | | | | [phone] | +--------+--------+ + + + + Reason [...] | Center at [address] | MD [address] | cancer (HCC) | | | | [address] | Ave [place], [place] | (Primary Dx) | | | | Mailcode: [place] | [address] | | | | | for Health and | [phone] | | | | | [facility] 2 | | | | | | [place], [place] | | | | | | [address] | | | | | | [phone] | | | +--------+---------+ + + + [...] Maddox RN - 03/22/2018 8:30 AM PDTEPICSPINPTPREOPINSTRUCTIONSP [facility] SURGERY INFORMATION [facility] General Surgery Office Toll-free: ext [phone] Surgery Date: SundayApril 10 Procedure: Staging Laparoscopy, [...] please call the General Surgery Office at [phone] for [id number]. PARKING Parking for patients and visitors is available in the [facility] Parking structure located across from the emergency department. Patient parking is available on level 1 and 3. Mete red parking is available on the top level. CHECKING IN FOR SURGERY For Hospital Admission (in-patient) you will check in on the day of surgery at the Admittin g Department located on the 9th floor of [facility] TRANSPORTATION You will require transportation home on the day of discharge. Pain medications and physica l activity restrictions may limit your ability to drive safely. CANCELLING YOUR PROCEDURE Please notify the general surgery office at [phone] as soon as possible should you nee [...] prior to your surgery. PRODUCTS CONTAINING ASPIRIN Rosalinda-Badger, Anacin, Anexsia with Codeine, Andynos, Aspirin, Aspirin suppositories, Ascrip tin, Aspergum, Axotal, B-A-C, Baby Aspirin, Tonja, BC Powder, Bexophene, Buffaprin, Bufferin , Buffinol, Cama-Arthritis Strength, Congespirin, Sprague, Coricidin, Damason, Darvon, Dristan, Rosa-Gesic, Digel, Dolprin #3 Tablets, Donatab, Doxaphene, Duragesic, Easprin, Ecotrin, Emag rin Forte, Emiprin, Emprazil, Equagesic, Equazine M, Excedrin, Fiogesic, Fiorgen PH, Fiorice t, Fiorinal, 4-Way Cold Tablet Gemnisyn, Indocin, Liquprin, Lortab ASA, Magnaprin, Marnal, Meprobamate, Midol, Momentum, N orgesic, [place], Orphengesic, Pabalate, P-A-C, Percodan, Presalin, Robaxasil, Roxiprin, Nasir eto, Salocol SK-65 Compound, Sine-Aid, Sine-Off,, [place], Supac, Talwin Compound, Trigesic, Tolectin , Traiminicin, Vanquish, ZORprin, Zomax PRODUCTS CONTAINING IBUPROFEN Advil, Aleve, Haltran, Medipren, Midol, Motrin, Naproxyn, Nuprin, Rufen OTHER PRODUCTS WHICH MAY PROMOTE BLEEDING Vitamin E, Gingko Biloba, Marine Fatty Acids, [place]-3 Fish Oil Supplements documented in this encounter Progress Notes Kristina Carranza MD - 03/22/2018 8:30 AM PDTFormatting of this note might be different fro m the original. 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 Never had FL. Pulm: no SOB, no ankle edema GI: [...] by mouth every four hours as needed. Wpydpkodp-Gaepxpbnr-Qv-Mag-Sim [id number] mg/30 mL mucous membrane mouthwash, Take 15 [...] plan. Dr Kristina Carranza MIS Fellow, MB [facility] PhD Pager [phone] I saw and evaluated the patient. I agree with the findings and the plan of care as tom godfrey in the fellow s note. Eleonora Ybarra MD [facility] 6TH FLOOR [address] Mailcode: [place] [address] documented in this encounter Plan [...]
--- OUTSIDE RECORDS SUMMARY | ~2019-11-23 | XMS | Encounter Summary ---
Demographics + + + | Address | [address] | | | [place] [address] | + + + | Home Phone [...] Team Providers + +------+ + | Care Baker Bread Name | Role | Phone | + +------+ + | Christos Olivarez MD | PCP | | + +------+ + Encounter Details +--------+ + + + + | Date | Type | Department | Care Team | Description | +--------+ + + + + | 08/11/ | MyChart | Diagnostic Imaging | | Appt Reminder | | 2019 | Encounter | Services [address] | | | | | [address] | | | | | | [place], [place] | | | | | | [address] | | | +--------+ + + + [...]
--- OUTSIDE RECORDS SUMMARY | ~2019-11-23 | XMS | Encounter Summary ---
Demographics + + + | Address | [address] | | | [place] [address] | + + + | Home Phone [...] Providers + +------+ + | Care Senior Windows Systems Administrator Name | Role | Phone | [...] | | | Stay [address] | [facility] [place] | blood chemistry | | | | [address] | [address] | | | | | Mailcode: UHN65 | [phone] | | | | | [facility] | | | | | | [address] [facility] [place] | | | | | | [address] | | | | | | [phone] | | | +--------+---------+ + + + Anesthesia Record + + + + + | Procedure Name | Responsible | Anesthesia Start | Anesthesia Stop Time | | | Anesthesiologist | Time | | + + + + + | MINIMALLY INVASIVE | Randell Martinez MD | 05/14/18 8879 | 05/14/18 1730 | | LAPAROSCOPIC 3-FIELD [...] + + + | Naso/O | 05/14/18; Hinckley jerryp; Right Nare; | 05/14/18 0000 by [...] sit, stand or walk. [facility] floor [facility] Surgery Check in Time: The Preoperative [...] it is after office hours, call the [facility] lamination operator at [phone] and ask them to page him or [...] discussed during this visit: Cardiac Cath From [facility] (08/12/2008) - Kbcj-xn-jarrttlu 2-vessel CAD (mo derate to LAD and [...] renal failure no electrolyte abnormalities no dialysis Urology/Machine Operator General: Within Defined Limits except as noted below [...] as follows: CORONARY ANGIOGRAPHY (08/12/2008) - From [facility] The coronary system was right dominant. 1. [...] vessel and free of disease. CONCLUSION/RECOMMENDATIONS 1. Gsso-zm-ukprblvz 2-vessel coronary artery disease except for a [...] to this patient's care. Sophia Haque DNP,ANP [facility] P[facility] PREOPERATIVE MEDICINE CLINIC AT [facility] 4TH FLOOR DAY STAY [address] [facility] [place] [address] I spent time (45 [...] | + +--------+ + + + | [place] COLLECTION VENOUS | Routin | 04/30/2018 | [...] | [facility] | [address] | [place] [address] | | | SERVICES, CORE | [address]SHLEY [...] [facility] | [address] | [place] [address] | | | SERVICES, | [address] [...] | + + + + + | [facility] JustBook | [address] | [place] [address] | | | SERVICES, | [address] [...] | [facility] | | considered for monitoring intermediate designer glycemic control in patients with: | LABORATORY [...] | fructosamine should be considered for monitoring nursing home glycemic | | | control in patients [...] | [facility] | [address] [facility] | [place] [address] | | | SERVICES, SPECIAL | ASHLEY [...] | | | LABORATORY | | | UGANDAN | | | SERVICES, | | | [...] | [facility] | [address] | [place] [address] | | | SERVICES, JUSTIN | ASHLEY [...]
--- OUTSIDE RECORDS SUMMARY | ~2019-11-23 | XMS | Encounter Summary ---
Demographics + + + | Address | [address] | | | [place] [address] | + + + | Home Phone [...] Team Providers + +------+ + | Care Hotbed Operator Name | Role | Phone | + +------+ + | Christos Olivarez MD | PCP | | + +------+ + Encounter Details +--------+ + + + + | Date | Type | Department | Care Team | Description | +--------+ + + + + | 03/17/ | [facility] | Hematology | Krunal Godoy, | Malignant neoplasm | | 2019 | | Oncology Study [address] | ,PhD [address] | of lower third of | | | | [address] | Ave [place], [place] | esophagus (HCC) | | | | Mailcode: CH7M | [address] | (Primary Dx) | | | | [facility] | [phone] | | | | | and Monika, | | | | | | [facility] | | | | | | [place], [place] | | | | | | [address] | | | | | | [phone] | | | +--------+ + + + [...] as of this encounter Results AMYLASE, PLASMA (03/19/2019 11:30 [...] | + + + + + | [facility] | [address] | [place] [address] | | | SERVICES, CORE | PARK [...] [facility] | [address] | [place] [address] | | | SERVICES, CORE | ASHLEY [...] [facility]ERI MOSER | [address] | [place] [address] | | | SERVICES, [place] FOR | | | | | HEALTH [...]
--- OUTSIDE RECORDS SUMMARY | ~2019-11-23 | XMS | Encounter Summary ---
Demographics + + + | Address | [address] | | | [place] [address] | + + + | Home Phone [...] Team Providers + +------+ + | Care Fabric And Accessories Estimator Name | Role | Phone | + +------+ + | Lius Leiva DO | PCP | | + [...] | [address] | [address] [facility] | | | | | lower third | Veterans | [facility] | | | | | of esophagus | [facility] | Rd | | | | | Esophagus | Road | [facility] [place] | | | | | Ca | [facility] [place] | [address] | | | | | Procedures | [address] | Phone: | | | | | Consult, | Phone: | [phone] | | | | | Sage Wilkins | [phone] | Fax: | | | | | | Fax: | [phone] | | | | | | [phone] | | +--------+--------+ + + + + Encounter Details +--------+ + + + + | Date | Type | Department | Care Team | Description | +--------+ + + + + | 01/28/ | Hospital | Radiation Oncology | | | | 2018 | Encounter | at [address] [address] | | | | | | [place] | | | | | | [id number] [facility] | | | | | | HOSPITAL [place], | | | | | | [place] [address] | | | | | | [phone] | | | +--------+ + + + [...]
--- OUTSIDE RECORDS SUMMARY | ~2019-11-23 | XMS | Encounter Summary ---
Demographics + + + | Address | [address] | | | [place] [address] | + + + | Home Phone [...] Providers + +------+ + | Care Hot Head Machine Operator Name | Role | Phone [...] | [address] | [address] [facility] | | | | | lower third | Veterans | [facility] | | | | | of esophagus | [facility] | Rd | | | | | Esophagus | Road | [facility] [place] | | | | | Ca | [facility] [place] | [address] | | | | | Procedures | [address] | Phone: | | | | | Consult, | Phone: | [phone] | | | | | Sage Wilkins | [phone] | Fax: | | | | | | Fax: | [phone] | | | | | | [phone] | | +--------+--------+ + + + + Encounter Details +--------+ + + + + | Date | Type | Department | Care Team | Description | +--------+ + + + + | 12/26/ | Hospital | Radiation Oncology | | | | 2017 | Encounter | at [address] [address] | | | | | | [place] | | | | | | [id number] [facility] | | | | | | HOSPITAL [place], | | | | | | [place] [address] | | | | | | [phone] | | | +--------+ + + + [...]
--- OUTSIDE RECORDS SUMMARY | ~2019-11-23 | XMS | Encounter Summary ---
Demographics + + + | Address | [address] | | | [place] [address] | + + + | Home Phone [...] Team Providers + +------+ + | Care Tents Assembler Name | Role | Phone | [...] [address] | | | | | /[id number] [facility] | [place], [place] | | | | | [facility], | [address] | | | | | [place] [address] | [phone] | | | | | [phone] | | | +--------+ + + + [...]
--- OUTSIDE RECORDS SUMMARY | ~2019-11-23 | XMS | Encounter Summary ---
Demographics + + + | Address | [address] | | | [place] [address] | + + + | Home Phone [...] | of esophagus | [address] | [place], [place] | | | | | ([facility]) | [place], [place] | [address] | | | | | Procedures | [address] | Phone: | | | | | CONSULT TO | Phone: | [phone] | | | | | ADULT | [phone] | Fax: | | | | | MEDICAL | Fax: | [phone] | | | | | NUTRITIONAL | [phone] | | | | | | THERAPY [...] Health and | | | | | [place] | [address] | Healing, | | | | | SERVICES | Phone: | Building 2 | | | | | PROVIDED | [phone] | [place], [place] | | | | | PART OF [place] | Fax: | [address] | | | | | INJ | [phone] | Phone: | | | | | [address] | | [phone] | | | | | MG [place] EST | | Fax: | | | | | PATIENT | | [phone] | | | | | LEVEL V | | | | | | | Study IRB: | | | | | | | [id number] Study | | | | | | [...] | 2018 | Visit | Oncology at [place] | [address] | of lower third of | | | | [address] | [address] | esophagus (HCC) | | | | [address] | [place], [place] | (Primary Dx); | | | | Mailcode: [place] | [address] | Clinical trial exam | | | | [address] and | [phone] | | | | | [facility] 2 | | | | | | [place], [place] | | | | | | [address] | | | | | | [phone] | | | +--------+---------+ + + + [...] or no response, score 3) - 07/31/2018 [facility] Medical oncology evaluation- offered enrollment [...] 45.3 10/28/2018 Yun Ronquillo M.S., PADerrellC Physician Ramp Agent Medical Oncology Pager [phone] Kerrie Monahan RN - 10/28/2018 10:10 AM PST Research RN Note: Mr. Jacob Sapp presents today for C5D1 nivolumab vs placebo after signing consent to particip ate in [id number]: A Randomized, Multicenter, Double Blind, Phase III [...] 70.2 kg IV access: PIV RD/SW referral: computer support specialist instructor at [place] established Multi-D MD: Chemotherapy teaching: done per chemo binder and ICF My Chart access: active and encouraged Patient reports that neoadjuvant chemo was completed at [place] in [place]. Radiation completed at [facility]. He reports the following medical and surgical history at baseline: Past Medical History: Diagnosis Date Cervical spinal stenosis 1997 Coronary artery disease 2007 diagnosed on angiogram when experienced chest pain - treated with medications, pain attr ibuted to esophageal spasm, never had AL or stent H/O Diverticulosis 1997 Hernia, hiatal, [...]
--- OUTSIDE RECORDS SUMMARY | ~2019-11-23 | XMS | Encounter Summary ---
Demographics + + + | Address | [address] | | | [place] [address] | + + + | Home Phone [...] Team Providers + +------+ + | Care Mutuel Department Manager Name | Role | Phone [...] | | | | lower third | [address] | Mailcode: | | | | | of esophagus | [address] | Center for | | | | | Procedures | [place], [place] | Health and | | | | | [place] | [id number] | Healing, | | | | | SERVICES | Phone: | Building 2 | | | | | PROVIDED | [phone] | [place], [place] | | | | | PART OF ID | Fax: | [address] | | | | | INJ | [phone] | Phone: | | | | | [address] | | [phone] | | | | | MG ID EST | | Fax: | | | | | PATIENT | | [phone] | | | | | LEVEL V | | | | | | | Study IRB: | | | | | | | [id number] Study | | | | | | [...] 2018 | Visit | Oncology at [place] | [address] | of lower third of | | | | [facility] | [address] | esophagus (HCC) | | | | [address] | [place], [place] | (Primary Dx); | | | | Mailcode: [place] | [address] | Clinical trial exam | | | | Reppler and | [phone] | | | | | [place] [address] | | | | | | [place], [place] | | | | | | [address] | | | | | | [phone] | | | +--------+---------+ + + + [...] after signing consent to particip ate in [id number]: A Randomized, Multicenter, Double Blind, Phase III [...] recently revised consent form for this study, [id number]: A R andomized, Multicenter, Double Blind, Phase III Study of Adjuvant Nivolumab or Placebo in [place] bjects with Resected Lower Esophageal, or Gastroesophageal Junction Cancer (CheckMate 577: C HECKpoint pathway and nivoluMab clinical Trial Evaluation 577). I explained the changes to t he form based on the track change of [facility] Version 6.0 and the updated risk tables [...] 70.2 kg IV access: PIV RD/SW referral: human resources benefits administrator at [place] established Multi-D MD: Chemotherapy teaching: done per chemo binder and ICF My Chart access: active and encouraged Patient reports that neoadjuvant chemo was completed at [place]. Radiation completed at [facility]. He reports the following medical and surgical [...] or no response, score 3) - 07/31/2018 [facility] Medical oncology evaluation- offered enrollment on Checkmate [...] 45.3 10/28/2018 Yun Ronquillo M.S., PADerrellC Physician Manager Recruitment Medical Oncology Pager [phone] documented in t his encounter Plan of [...]
--- OUTSIDE RECORDS SUMMARY | ~2019-11-23 | XMS | Encounter Summary ---
Demographics + + + | Address | [address] | | | [place] [address] | + + + | Home Phone [...] Team Providers + +------+ + | Care Underwriting Manager Name | Role | Phone | + +------+ + | Christos Olivarez MD | PCP | | + +------+ + Encounter Details +--------+ + + + + | Date | Type | Department | Care Team | Description | +--------+ + + + + | 11/11/ | Press Loader | Hematology | Marie Liz, | | | 2018 | | Oncology Study [address] | [address] | | | | | [address] [facility] | Road [facility] [address] | | | | | Mailcode: CH7M | [place] [address] | | | | | [facility] | [phone] | | | | | and Monika, | | | | | | Building | | | | | | [place], [place] | | | | | | [address] | | | | | | [phone] | | | +--------+ + + + [...]
--- OUTSIDE RECORDS SUMMARY | ~2019-11-23 | XMS | Encounter Summary ---
Demographics + + + | Address | [address] | | | [place] [address] | + + + | Home Phone [...] Team Providers + +------+ + | Care Grease Refiner Operator Name | Role | Phone | [...] 08/14/ | Telephone | Hematology/Medical | Krunal Godoy, | Other (Calling to | | 2019 | | Oncology at [place] | ,PhD [address] | schedule PET Scan) | | | | for Health & Healing | Ave [place], [place] | | | | | [address] | [address] | | | | | Mailcode: [place] | [phone] | | | | | for Health and | | | | | | Healing, Building [address] | | | | | | [place], [place] | | | | | | [address] | | | | | | [phone] | | | +--------+ + + + [...]
--- OUTSIDE RECORDS SUMMARY | ~2019-11-23 | XMS | Encounter Summary ---
Demographics + + + | Address | [address] | | | [place] [address] | + + + | Home Phone [...] Team Providers + +------+ + | Care Shoe Laster Name | Role | Phone | + +------+ + | Christos Olivarez MD | PCP | | + +------+ + Encounter Details +--------+ + + + + | Date | Type | Department | Care Team | Description | +--------+ + + + + | 12/20/ | Trouble Tracer | Hematology | Krunal Godoy, | Malignant neoplasm | | 2019 | | Oncology Study [address] | ,PhD [address] | of lower third of | | | | [address] | Ave [place], [place] | esophagus (HCC) | | | | Mailcode: CH7M | [address] | (Primary Dx) | | | | [facility] | [phone] | | | | | and Monika, | | | | | | [facility] | | | | | | [place], [place] | | | | | | [address] | | | | | | [phone] | | | +--------+ + + + [...] | + + + + + | [facility] | [address] | [place] [address] | | | SERVICES, CORE | PARK [...] [facility] | [address] | [place] [address] | | | SERVICES, CORE | PARK [...] + + + + + | [facility] | [address] | [place] [address] | | | SERVICES, CORE | [address] | | | + + + + + documented in this encounter Visit Diagnoses + + | Diagnosis | + + | 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
--- OUTSIDE RECORDS SUMMARY | ~2019-11-23 | XMS | Encounter Summary ---
Demographics + + + | Address | [address] | | | [place] [address] | + + + | Home Phone | | + + + | Preferred Language | Unknown | + + + | Marital Status | | + + + | Sikhism Affiliation | 1041 | + + + | Race | Unknown | + + + | Ethnic Group | Unknown | + + + Author + + + | Author | Located Within [facility] | | | and [place] | + + + | Organization | Located Within [facility] | | [...] Providers + +------+ + | Care Brush Sander Name | Role | Phone | + +------+ + PCP | Unavailable | + +------+ + Encounter Details +--------+ + + + + | Date | Type | Department | Care Team | Description | +--------+ + + + + | 08/12/ | Hospital | [facility] | Jimi Jorge | Coronary | | 2007 | Encounter | [facility] | [address] [facility] | Atherosclerosis of | | | | CARE FLOOR [address] | [address] [place], [place] | Kot[place] Coronary | | | | [address] | [id number] | Artery | | | | [place], [place] | | | | | | [address] | | | | | | [phone] | | | +--------+ + + + [...] | + + | Coronary atherosclerosis of [place] coronary artery | + + documented in this encounter"
--- OUTSIDE RECORDS SUMMARY | ~2019-11-23 | XMS | Encounter Summary ---
Demographics + + + | Address | [address] | | | [place] [address] | + + + | Home Phone [...] Team Providers + +------+ + | Care Burglar Alarm Inspector Name | Role | Phone | [...] | | | | Procedures | [place], [place] | Health and | | | | | [place] | [address] | Healing, | | | | | SERVICES | Phone: | Building 2 | | | | | PROVIDED | [phone] | [place], [place] | | | | | PART OF [place] | Fax: | [address] | | | | | INJ | [phone] | Phone: | | | | | [address] | | [phone] | | | | | [place] EST | | Fax: | | | | | PATIENT | | [phone] | | | | | LEVEL V | | | | | | | Study IRB: | | | | | | | 16897 Study | | | | | | [...] | 2019 | Visit | Oncology at [place] | [facility] [address] | of lower third of | | | | for Health & Healing | [facility] [address] | esophagus (HCC) | | | | [address] | [place], [place] | (Primary Dx); | | | | Mailcode: [place] | [address] | Fatigue, unspecified | | | | for Health and | [phone] | type; Clinical | | | | Healing, Building 2 | | trial exam; | | | | [place], [place] | | Malignant neoplasm | | | | [address] | | of abdominal | | | | [phone] | | esophagus (HCC); | | | [...] or no response, score 3) - 07/31/2018 [facility] Medical oncology evaluation- offered [...] ABDOMEN AND PELVIS W IV CONTRAST Order: [id number] Performed: 05/20/2019 09:49 Status: Final result Visible [...] biopsy. Sergio Cr PA-C HEMATOLOGY/MEDICAL ONCOLOGY AT [address] Mailcode: [place] [address] documented in this encounter Plan [...] [facility] | [address] | [place] [address] | | | JUSTIN GREENWOOD | ASHLEY [...]
--- OUTSIDE RECORDS SUMMARY | ~2019-11-23 | XMS | Encounter Summary ---
Demographics + + + | Address | [address] | | | [place] [address] | + + + | Home Phone [...] Providers + +------+ + | Care Waiter/Waitress Cocktail Lounge Name | Role | Phone | + +------+ + | Christos Olivarez MD | PCP | | + +------+ + Reason for Visit + + + | Reason | Comments | + + + | Care Coordination | | + + + Encounter Details +--------+ + + + + | Date | Type | Department | Care Team | Description | +--------+ + + + + | 02/10/ | Telephone | Hematology/Medical | Krunal Godoy, | Care Coordination | | 2019 | | [facility] at [place] | ,PhD [address] | | | | | for Health & Healing | Ave [place], [place] | | | | | [address] | [address] | | | | | Mailcode: [place] | [phone] | | | | | for Health and | | | | | | Healing, Building 2 | | | | | | [place], [place] | | | | | | [address] | | | | | | [phone] | | | +--------+ + + + [...]
--- OUTSIDE RECORDS SUMMARY | ~2019-11-23 | XMS | Encounter Summary ---
Demographics + + + | Address | [address] | | | [place] [address] | + + + | Home Phone [...] Providers + +------+ + | Care Merchandising Professor Name | Role | Phone | [...] | | | | | Procedures | [place], [place] | Health and | | | | | [place] | [address] | Healing, | | | | | SERVICES | Phone: | Building 2 | | | | | PROVIDED | [phone] | [place], [place] | | | | | PART OF [place] | Fax: | [address] | | | | | INJ | [phone] | Phone: | | | | | [address] | | [phone] | | | | | [place] EST | | Fax: | | | | | PATIENT | | [phone] | | | | | LEVEL V | | | | | | | Study IRB: | | | | | | | [address] Study | | | | | | [...] | 2018 | Visit | Oncology at [place] | [address] | of lower third of | | | | for Health & Healing | [address] | esophagus (HCC) | | | | [address] | [place] [address] | (Primary Dx) | | | | Mailcode: [place] | [phone] | | | | | for Health and | | | | | | Healing, Building 2 | | | | | | [place], [place] | | | | | | [address] | | | | | | [phone] | | | +--------+---------+ + + + [...] after signing consent to particip ate in QU548-327: A Randomized, Multicenter, Double Blind, Phase III [...] 70.2 kg IV access: PIV RD/SW referral: chilling hood operator at [place] established Multi-D MD: Chemotherapy teaching: done per chemo binder and ICF My Chart access: active and encouraged Patient reports that neoadjuvant chemo was completed at [facility] in [place]. Radiation completed at [facility]. He reports the following medical [...] or no response, score 3) - 07/31/2018 [facility] Medical oncology evaluation- offered [...] RDW 42.0 10/01/2018 Marie Liz MD Clinical firewall administrator Medical Oncology and Hematology documented in this encou nter Plan of Treatment Not on filedocumented as of this encounter Visit Diagnoses + + | Diagnosis | + + | 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
--- OUTSIDE RECORDS SUMMARY | ~2019-11-23 | XMS | Encounter Summary ---
Demographics + + + | Address | [address] | | | [place] [address] | + + + | Home Phone [...] Team Providers + +------+ + | Care Usability Architect Name | Role | Phone | [...] [address] | | | | | [address] | [place] [address] | | | | | Mailcode: [place] | | | | | | for Health and | | | | | | Healing, [place] [address] | | | | | | [place], [place] | | | | | | [address] | | | | | | [phone] | | | +--------+ + + + [...] + | [facility] | [address] | [place] [address] | | | OF CARE TESTS | [...] + + + + | [facility] | [address] [facility] | [place] [address] | | | OF CARE TESTS | [...] | + + + + + | [facility] | [address] [facility] | [place] [address] | | | SERVICES, CORE | ASHLEY [...] [facility] | [address] | [place] [address] | | | SERVICES, CORE | PARK [...] + + + | [facility] | [address] | [place] [address] | | | SERVICES, CORE | ASHLEY [...]
--- OUTSIDE RECORDS SUMMARY | ~2019-11-23 | XMS | Encounter Summary ---
Demographics + + + | Address | [address] | | | [place] [address] | + + + | Home Phone [...] Team Providers + +------+ + | Care Obstetrician Gynecologist Name | Role | Phone | + [...] | | | | | Procedures | [place], [place] | Health and | | | | | [place] | [address] | Healing, | | | | | SERVICES | Phone: | Building 2 | | | | | PROVIDED | [phone] | [place], [place] | | | | | PART OF [place] | Fax: | [address] | | | | | INJ | [phone] | Phone: | | | | | [address] | | [phone] | | | | | [place] EST | | Fax: | | | | | PATIENT | | [phone] | | | | | LEVEL V | | | | | | | Study IRB: | | | | | | | [address] Study | | | | | | [...] | 2019 | Visit | Oncology at [place] | [facility] [address] | of lower third of | | | | [email or web address] | [address] [facility] | esophagus (HCC) | | | | [address] | [place], [place] | (Primary Dx); | | | | Mailcode: [place] | [address] | Clinical trial exam; | | | | [facility] and | [phone] | Fatigue, | | | | Healing, [facility] 2 | | unspecified type; | | | | [place], [place] | | Nausea; Urinary | | | | [address] | | retention | | | | [phone] | | | +--------+---------+ + + + [...] clinic hours please call the clinic at [phone]. Evenings, weekends and holidays please call [phone] and ask to have the oncologist rn lactation paged. 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 [...] after signing consent to partici rivers in [id number]: A Randomized, Multicenter, Double Blind, Phase III Study of Adjuvant Nivo lumab or Placebo in Subjects with Resected Lower Esophageal, or Gastroesophageal Junction Ca ncer (CheckMate 577: CHECKpoint pathway and nivoluMab clinical Trial Evaluation 577). OF NOTE: Prohibited medications: Labs were reviewed: yes ECO Accompanied today by: Baseline stool count: Baseline neuropathy: none Baseline weight: 70.2 kg IV access: PIV RD/SW referral: rn lactation at [facility] established Multi-D MD: Chemotherapy teaching: done per chemo binder and ICF My Chart access: active and encouraged Patient reports that neoadjuvant chemo was completed at [facility] in [place]. Radiation completed at [facility]. He reports the following medical and surgical history at baseline: Past Medical History: Diagnosis Date Cervical spinal stenosis 1997 Coronary artery disease 2007 diagnosed on angiogram when experienced chest pain - treated with medications, pain attr ibuted to esophageal spasm, never had OR or stent H/O Diverticulosis 1997 Hernia, hiatal, [...] 02/13/19 Sergio Cr PA-C HEMATOLOGY/MEDICAL ONCOLOGY AT [address] Mailcode: [place] [id number] documented in this encounter Plan of Treatment [...]
--- OUTSIDE RECORDS SUMMARY | ~2019-11-23 | XMS | Encounter Summary ---
Demographics + + + | Address | [address] | | | [place] [address] | + + + | Home Phone [...] Team Providers + +------+ + | Care Pipeline Superintendent Name | Role | Phone | [...] | 10/15/ | Clinical | Laboratory at [facility] | | Lab Draw | | 2018 | Support | [address] | | | | | Staff | [place], [place] | | | | | | [address] | | | | | | [phone] | | | +--------+ + + + [...] - 10/15/2018 8:20 AM PSTPIV started in [facility] for lab draw. CBC and CMP draw [...] [facility] | [address] | [place] [address] | | | SERVICES, CORE | PARK [...] + | [facility] | [address] [facility] | [place] [address] | | | SERVICES, CORE | PARK [...] | | | this test in the [facility] | | | | | | Laboratory Test | | | | | | Directory | | | | | | ([employer]ira [employer]).Performed | | | | | | by [employer],[address] | | | | | | [address], [place] | | | | | | [address] | | | | | | [phone].[email or web address]. | | | | | | [facility], Chandrakant Gasca MD, | | | | [...] [facility] | [address] | [place], [place] | | | UN[facility] | | [address] | | + + + + + [...] + | [facility] - | [address] | [place] [address] | | | [place] | | | [...] LABORATORY | [address] | [place] [address] | | | SERVICES, [place] [facility] | | | | | HEALTH [...] | + + + + + | [email or web address] | [address] | [place] [address] | | | SERVICES, [place] [facility] | | | | | HEALTH [...] + | [facility] | [address] | [place] [address] | | | SERVICES, JUSTIN | [address] | | | + + + + + documented in this encounter Visit Diagnoses + + | Diagnosis | + + | 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
--- OUTSIDE RECORDS SUMMARY | ~2019-11-23 | XMS | Encounter Summary ---
Demographics + + + | Address | [address] | | | [place] [address] | + + + | Home Phone [...] Providers + +------+ + | Care Certified Lactation Counselor Name | Role | Phone | + +------+ + | Christos Olivarez MD | PCP | | + +------+ + Encounter Details +--------+ + + + + | Date | Type | Department | Care Team | Description | +--------+ + + + + | 05/15/ | MyChart | Diagnostic Imaging | | Appointment Reminder | | 2019 | Encounter | Services [address] | | | | | | [address] | | | | | | [place], [place] | | | | | | [address] | | | +--------+ + + + [...]
--- OUTSIDE RECORDS SUMMARY | ~2019-11-23 | XMS | Encounter Summary ---
Demographics + + + | Address | [address] | | | [place] [address] | + + + | Home Phone [...] Team Providers + +------+ + | Care Novelty Twister Tender Name | Role | Phone | [...] | Treatment Planning | | | | [address] | [address] | Note | | | | [id number] | [place], [place] | | | | | [facility], | [address] | | | | | [place] [address] | [phone] | | | | | [phone] | | | +--------+ + + + [...]
--- OUTSIDE RECORDS SUMMARY | ~2019-11-23 | XMS | Encounter Summary ---
Demographics + + + | Address | [address] | | | [place] [address] | + + + | Home Phone [...] Team Providers + +------+ + | Care Command And Control Specialist Name | Role | Phone | [...] | | of esophagus | Hospital | [facility] | | | | | | Road | Health and | | | | | | [place], [place] | Healing, | | | | | | [address] | Building 2 | | | | | | Phone: | [place], [place] | | | | | | [phone] | [address] | | | | | | Fax: | Phone: | | | | | | [phone] | [phone] | | | | | | | Fax: | | | | | | | [phone] | + +--------+ + + + + Encounter Details +--------+---------+ + + + | Date | Type | Department | Care Team | Description | +--------+---------+ + + + | 07/09/ | Office | Digestive Health | Eleonora Ybarra, | Malignant neoplasm | | 2018 | Visit | Center at [facility] [address] | MD [address] | of lower third of | | | | [address] | Ave [place], [place] | esophagus (HCC) | | | | Mailcode: Center | [address] | (Primary Dx); | | | | for Health and | [phone] | Jejunostomy tube | | | | Healing, Building 2 | | present (HCC) | | | | [place], [place] | | | | | | [address] | | | | | | [phone] | | | +--------+---------+ + + + [...] + + + | Blood Pressure | 153/115 | 07/09/2018 9:17 AM | | | | | PDT | | + + + + + | Pulse | 99 | 07/09/2018 9:17 AM | | | | | PDT | | + + + + + | Temperature | 36.7 C (98.1 F) | 07/09/2018 9:16 AM | | | | | PDT | | + + + + + | Respiratory Rate | 16 | 07/09/2018 9:16 AM | | | | | PDT | | + + + + + | Oxygen Saturation | - | - | | + + + + + | Inhaled Oxygen | - | - | | | Concentration | | | | + + + + + | Weight | 67.4 kg (148 lb 9.6 | 07/09/2018 9:16 AM | | | | oz) | PDT | | + + + + + | Height | 172.7 cm (5' 8") | 07/09/2018 9:16 AM | | | | | PDT | | + + + + + | Body Mass Index | 22.59 | 07/09/2018 9:16 AM | | | | | PDT [...] encounter Progress Notes Eleonora Ybarra MD - 07/09/2018 9:20 AM PDTDEPARTMENT OF SURGERY [facility] Follow-Up Note Patient: Jacob Sapp ([id number]) Date: 07/09/2018 ID: Jacob Sapp is a 67 y.o. 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 Vicente/Dr. Pal/. Interval History: Much improved energy level. Tolerating more PO - mostly softs. Still using night time TF's. No complaints of dysphagia. Gaining weight. No more j-tube issues since seen last. Only com plaint of reflux when laying flat. Physical Exam: Ht 1.727 m (5' 8"), Wt 67.4 kg (148 lb 9.6 oz), BP 153/115, Pulse 99, Temperature 36.7 C (98.1 F), Temperature source Oral, RR 16, BMI 22.59 kg/(m^2). Facility age limit for grow th percentiles is 18 years. Physical Exam Constitutional: Appears slightly weak but [...] in situ - no evidence of infection. Assessment and Plan: Jacob Sapp is a 67 y.o. male with yT3N2 esophageal adenocarcinoma s/p esophagectomy. Improv ed from previous visit. Feeling stronger. Recommend increasing walking as tolerated. Hold ni ght time TF's for next 2 weeks and f/u for possible j-tube removal. ECC discussion: f/u with Dr. Bazan for possible adjuvant CheckMate 577 trial utilizing A djuvant Nivolumab. [facility] so we need to get a referral and authorization from the [facility] if he's interested.Otherwise standard surveillance. - Currently contacting the Cancer coordinator regarding plan. F/u in 2-3 weeks after holding night time tube feeds and remove J-tube [address] op [address] scan to be scheduled - may be done here vs [facility] - per patient preference. A student assisted with documenting this service. I saw the patient and reviewed and verif ied all information documented by the medical student and made modifications to such informa tion, when appropriate. 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
--- OUTSIDE RECORDS SUMMARY | ~2019-11-23 | XMS | Encounter Summary ---
Demographics + + + | Address | [address] | | | [place] [address] | + + + | Home Phone [...] Team Providers + +------+ + | Care Construction Job Titles Name | Role | Phone | + +------+ + | Christos Olivarez MD | PCP | | + +------+ + Encounter Details +--------+ + + + + | Date | Type | Department | Care Team | Description | +--------+ + + + + | 10/24/ | Global Consumer Sector Vice President | Hematology | Marie Liz, | Malignant neoplasm | | 2018 | | Oncology Study [address] | [address] | of esophagus, | | | [address] | [address] | unspecified location | | | | Mailcode: CH7M | [place] [address] | ([facility]) (Primary Dx) | | | | [facility] | [phone] | | | | | and Monika, | | | | | | [facility] | | | | | | Floor [place], [place] | | | | | | [address] | | | | | | [phone] | | | +--------+ + + + [...] | [facility] | | | GRAVITY | [place] performed by | | LABORATORY | | [...] | + + + + + | [facility] | [address] | [place] [address] | | | SERVICES, CORE | [address] | | | + + + + + documented in this encounter Visit Diagnoses + + | Diagnosis | + + | Malignant neoplasm of esophagus, unspecified location (HCC) - Primary | + + documented in this encounter"
--- OUTSIDE RECORDS SUMMARY | ~2019-11-23 | XMS | Encounter Summary ---
Demographics + + + | Address | [address] | | | [place] [address] | + + + | Home Phone | | + + + | Preferred Language | Unknown | + + + | Marital Status | | + + + | Faith Affiliation | 1041 | + + + | Race | Unknown | + + + | Ethnic Group | Unknown | + + + Author + + + | Author | [facility] | | | and [place] | + + + | Organization | [facility] | | | and [...] Team Providers + +------+ + | Care Information Systems Security Developer Name | Role | Phone | [...] [place] | | | | | [address], [place] | [address] | | | | | [address] | | | | | | [phone] | | | +--------+ + + + [...]
--- OUTSIDE RECORDS SUMMARY | ~2019-11-23 | XMS | Encounter Summary ---
Demographics + + + | Address | [address] | | | [place] [address] | + + + | Home Phone [...] Providers + +------+ + | Care Electric Truck Operator Name | Role | Phone | + +------+ + | Christos Olivarez MD | PCP | | + +------+ + Encounter Details +--------+--------+ + + + | Date | Type | Department | Care Team | Description | +--------+--------+ + + + | 04/22/ | Travel | | | | | [...]
--- OUTSIDE RECORDS SUMMARY | ~2019-11-23 | XMS | Encounter Summary ---
Demographics + + + | Address | [address] | | | [place] [address] | + + + | Home Phone [...] Team Providers + +------+ + | Care Mandate Retail Service Merchandiser Name | Role | Phone | + [...] Pharmacy | | | | | | [address] | | | | | | [place], [place] | | | | | | [address] | | | | | | [phone] | | | +--------+ + + + [...]
--- OUTSIDE RECORDS SUMMARY | ~2019-11-23 | XMS | Encounter Summary ---
Demographics + + + | Address | [address] | | | [place] [address] | + + + | Home Phone [...] Team Providers + +------+ + | Care Training Technician Name | Role | Phone | [...] [address] | [address] [facility] | | | | | lower third | Veterans | [facility] | | | | | of esophagus | [facility] | Rd | | | | | Esophagus | Road | [facility] [place] | | | | | Ca | [facility] [place] | [address] | | | | | Procedures | [address] | Phone: | | | | | Consult, | Phone: | [phone] | | | | | [address] | [phone] | Fax: | | | | | | Fax: | [phone] | | | | | | [phone] | | +--------+--------+ + + + + Encounter Details +--------+ + + + + | Date | Type | Department | Care Team | Description | +--------+ + + + + | 01/11/ | Hospital | Radiation Oncology | | | | 2018 | Encounter | at [facility] [address] | | | | | | [place] | | | | | | [id number] [facility] | | | | | | HOSPITAL [place], | | | | | | [place] [address] | | | | | | [phone] | | | +--------+ + + + [...]
--- OUTSIDE RECORDS SUMMARY | ~2019-11-23 | XMS | Encounter Summary ---
Demographics + + + | Address | [address] | | | [place] [address] | + + + | Home Phone [...] Providers + +------+ + | Care Interventional Nurse Name | Role | Phone | [...] | 08/13/ | Clinical | Laboratory at [facility] | | Lab Draw | | 2019 | Support | [address] | | | | | Staff | [place], [place] | | | | | | [address] | | | | | | [phone] | | | +--------+ + + + [...] + + | [facility] | [address] | [place] [address] | | | JUSTIN [address] | [address] [...] | + + + + + | [facility] | [address] | [place] [address] | | | SERVICES, CORE | [address] | | | + + + + + LIPASE, PLASMA (08/13/2019 2:28 PM PDT) + +--------+ + + + | Component | Value | Ref Range | Performed | Pathologist | | | | | At | Signature | + +--------+ + + + | LIPASE | 53 (L) | 152 - 353 U/L | [facility] | | | (LAB) | | | [...] | + + + + + | [facility] | [address] | [place] [address] | | | SERVICES, CORE | [address] [...] | included in the neutrophil count. | [facility] | | | HEALTH + | | | HEALING | + + + + + + + + | Performing | Address | City/State/Zipcode | Phone Number | | Organization | | | | + + + + + | [facility] | [address] | [place] [address] | | | [facility] FOR | | | | | HEALTH + HEALING | | | | + + + + + [facility] - COMPLETE METABOLIC SET (08/13/2019 2:28 [...] | | | LABORATORY | | | EMIRATI | | | SERVICES, | | | [...] MDRD equation recommended by the National | [facility] | | Kidney Disease Education Program. Estimated [...] | + + + + + | [facility] | [address] | [place] [address] | | | SERVICES, [place] FOR | | | | | HEALTH [...] [facility] | [address] | [place] [address] | | | SERVICES, CORE | [address] | | | + + + + + documented in this encounter Visit Diagnoses + + | Diagnosis | + + | 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
--- OUTSIDE RECORDS SUMMARY | ~2019-11-23 | XMS | Encounter Summary ---
Demographics + + + | Address | [address] | | | [place] [address] | + + + | Home Phone [...] Team Providers + +------+ + | Care Derrick Builder Name | Role | Phone | [...] | [address] | [address] [facility] | | | | | lower third | Veterans | [facility] | | | | | of esophagus | [facility] | Rd | | | | | Esophagus | Road | [facility] [place] | | | | | Ca | [facility] [place] | [address] | | | | | Procedures | [address] | Phone: | | | | | Consult, | Phone: | [phone] | | | | | [address] | [phone] | Fax: | | | | | | Fax: | [phone] | | | | | | [phone] | | +--------+--------+ + + + + Encounter Details +--------+ + + + + | Date | Type | Department | Care Team | Description | +--------+ + + + + | 01/23/ | Hospital | Radiation Oncology | | | | 2017 | Encounter | at [facility] [address] | | | | | | [place] | | | | | | [id number] [facility] | | | | | | [facility]OSP[facility] [place], | | | | | | [place] [address] | | | | | | [phone] | | | +--------+ + + + [...]
--- OUTSIDE RECORDS SUMMARY | ~2019-11-23 | XMS | Encounter Summary ---
Demographics + + + | Address | [address] | | | [place] [address] | + + + | Home Phone [...] Team Providers + +------+ + | Care Brass Cleaner Name | Role | Phone | [...] | [address] | [address] [facility] | | | | | lower third | Veterans | [facility] | | | | | of esophagus | [facility] | Rd | | | | | Esophagus | Road | [facility] [place] | | | | | Ca | [facility] [place] | [address] | | | | | Procedures | [address] | Phone: | | | | | Consult, | Phone: | [phone] | | | | | Sage Wilikns | [phone] | Fax: | | | | | | Fax: | [phone] | | | | | | [phone] | | +--------+--------+ + + + + Encounter Details +--------+ + + + + | Date | Type | Department | Care Team | Description | +--------+ + + + + | 01/08/ | Hospital | Radiation Oncology | | | | 2018 | Encounter | at [facility] [address] | | | | | | [place] | | | | | | [id number] [facility] | | | | | | HOSPITAL [place], | | | | | | [place] [address] | | | | | | [phone] | | | +--------+ + + + [...]
--- OUTSIDE RECORDS SUMMARY | ~2019-11-23 | XMS | Encounter Summary ---
Demographics + + + | Address | [address] | | | [place] [address] | + + + | Home Phone [...] Team Providers + +------+ + | Care Online Affiliate Marketing Manager Name | Role | Phone | [...] | 02/17/ | Clinical | Laboratory at [facility] | | Lab Draw | | 2019 | Support | [address] | | | | | Staff | [place], [place] | | | | | | [address] | | | | | | [phone] | | | +--------+ + + + [...] [facility] | [address] | [place] [address] | | | TIMO, JUSTIN | ASHLEY [...] | + + + + + | [facility] | [address] | [place] [address] | | | SERVICES, CORE | ASHLEY [...] [facility] | [address] | [place] [address] | | | SERVICES, CORE | PARK [...] SERVICES, | | | | | | [place] [facility] | | | | | | [...] LABORATORY | [address] | [place] [address] | | | [facility] | | | | | [...] [facility] | [address] | [place] [address] | | | SERVICES, [place] [facility] | | | | | HEALTH [...]
--- OUTSIDE RECORDS SUMMARY | ~2019-11-23 | XMS | Encounter Summary ---
Demographics + + + | Address | [address] | | | [place] [address] | + + + | Home Phone [...] Providers + +------+ + | Care Retail Clerk Name | Role | Phone | [...] | | 2019 | | Oncology at [place] | ,PhD [address] | (prochlorperazine 10 | | | | for Health & Healing | [place], [place] | mg oral tablet) | | | | [address] | [address] | | | | | Mailcode: [place] | [phone] | | | | | for Health and | | | | | | Healing, Building [address] | | | | | | [place], [place] | | | | | | [address] | | | | | | [phone] | | | +--------+--------+ + + + [...]
--- OUTSIDE RECORDS SUMMARY | ~2019-11-23 | XMS | Encounter Summary ---
Demographics + + + | Address | [address] | | | [place] [address] | + + + | Home Phone [...] Team Providers + +------+ + | Care Emergency Department Physician Name | Role | Phone | + +------+ + | Christos Olivarez MD | PCP | | + +------+ + Encounter Details +--------+ + + + + | Date | Type | Department | Care Team | Description | +--------+ + + + + | 03/25/ | Automatic Buffing Wheel Former | Hematology/Medical | Krunal Godoy, | | | 2019 | | Oncology at [place] | ,PhD [address] | | | | | for Health & Healing | [place], [place] | | | | | [address] | [address] | | | | | Mailcode: [place] | [phone] | | | | | for Health and | | | | | | [facility] 2 | | | | | | [place], [place] | | | | | | [address] | | | | | | [phone] | | | +--------+ + + + [...]
--- OUTSIDE RECORDS SUMMARY | ~2019-11-23 | XMS | Encounter Summary ---
Demographics + + + | Address | [address] | | | [place] [address] | + + + | Home Phone [...] Team Providers + +------+ + | Care Cataloging Assistant Name | Role | Phone | [...] 261 | | | | | | ([facility]) | [place], [place] | | | | | | Procedures | [address] | | | | | | CT CHEST, | Phone: | | | | | | ABDOMEN AND | [phone] | | | | | | PELVIS W IV | Fax: | | | | | | CONTRAST | [phone] | | +--------+--------+ + + + + [...] | | | | | (HCC) | [place], [place] | | | | | | Procedures | [address] | | | | | | CT CHEST, | Phone: | | | | | | ABDOMEN AND | [phone] | | | | | | PELVIS W IV | Fax: | | | | | | CONTRAST | [phone] | | +--------+--------+ + + + + Encounter Details +--------+ + + + + | Date | Type | Department | Care Team | Description | +--------+ + + + + | 08/21/ | Hospital | Diagnostic Imaging | Marie Liz, | | | 2018 | Encounter | Services at [facility] | [address] | | | | | [address] [facility] | [place] [address] | | | | | Katherine French Mailcode: | [place] [address] | | | | | [address] [facility] | [phone] | | | | | [place], [place] | | | | | | [address] | | | | | | [phone] | | | +--------+ + + + [...]
--- OUTSIDE RECORDS SUMMARY | ~2019-11-23 | XMS | Encounter Summary ---
Demographics + + + | Address | [address] | | | [place] [address] | + + + | Home Phone [...] Providers + +------+ + | Care Industrial Hygiene Engineer Name | Role | Phone | + +------+ + | Christos Olivarez MD | PCP | | + +------+ + Encounter Details +--------+ + + + + | Date | Type | Department | Care Team | Description | +--------+ + + + + | 03/17/ | Golf Cart Mechanic | Hematology | Krunal Godoy, | Malignant neoplasm | | 2019 | | Oncology Study [address] | ,PhD [address] | of lower third of | | | | [address] | Ave [place], [place] | esophagus (HCC) | | | | Mailcode: CH7M | [address] | (Primary Dx) | | | | [facility] | [phone] | | | | | and Monika, | | | | | | [facility] | | | | | | [place], [place] | | | | | | [address] | | | | | | [phone] | | | +--------+ + + + [...] | + + + + + | [facility] | [address] | [place] [address] | | | SERVICES, CORE | PARK [...] [facility] | [address] | [place] [address] | | | SERVICES, CORE | ASHLEY [...] [facility] | [address] | [place] [address] | | | SERVICES, [place] FOR | | | | | HEALTH [...]
--- OUTSIDE RECORDS SUMMARY | ~2019-11-23 | XMS | Encounter Summary ---
Demographics + + + | Address | [address] | | | [place] [address] | + + + | Home Phone [...] Providers + +------+ + | Care News Editor Name | Role | Phone | [...] | 2019 | | Oncology at [place] | ,PhD [address] | (OLANZapine 5 mg | | | | for Health & Healing | [place], [place] | oral tablet) | | | | [address] | [address] | | | | | Mailcode: [place] | [phone] | | | | | for Health and | | | | | | Healing, Building [address] | | | | | | [place], [place] | | | | | | [address] | | | | | | [phone] | | | +--------+--------+ + + + [...]
--- OUTSIDE RECORDS SUMMARY | ~2019-11-23 | XMS | Encounter Summary ---
Demographics + + + | Address | [address] | | | [place] [address] | + + + | Home Phone [...] Team Providers + +------+ + | Care Intertype Operator Name | Role | Phone | [...] | | 2019 | | Oncology at [place] | ,PhD [address] | (OLANZapine 5 mg | | | | for Health & Healing | [place], [place] | oral tablet) | | | | [address] | [address] | | | | | Mailcode: [place] | [phone] | | | | | for Health and | | | | | | Healing, Building [address] | | | | | | [place], [place] | | | | | | [address] | | | | | | [phone] | | | +--------+--------+ + + + [...]
--- OUTSIDE RECORDS SUMMARY | ~2019-11-23 | XMS | Encounter Summary ---
Demographics + + + | Address | [address] | | | [place] [address] | + + + | Home Phone [...] Team Providers + +------+ + | Care Uncrater Name | Role | Phone | + +------+ + | Christos Olivarez MD | PCP | | + +------+ + Encounter Details +--------+ + + + + | Date | Type | Department | Care Team | Description | +--------+ + + + + | 09/02/ | Preservationist | Hematology | Rebecca Booth | Malignant neoplasm | | 2019 | | Oncology Study [address] | [address] | of lower third of | | | [address] | Katherine French [place], | esophagus (HCC) | | | | Mailcode: 7M | [place] [address] | (Primary Dx); Other | | | | [facility] | | specified disorders | | | | and Healing, | | involving the immune | | | | Building | | mechanism, not | | | | Floor [place], [place] | | elsewhere classified | | | | [address] | | ([facility]) | | | | [phone] | | | +--------+ + + + [...]
--- OUTSIDE RECORDS SUMMARY | ~2019-11-23 | XMS | Encounter Summary ---
Demographics + + + | Address | [address] | | | [place] [address] | + + + | Home Phone [...] Team Providers + +------+ + | Care Flour Tester Name | Role | Phone | + +------+ + | Christos Olivarez MD | PCP | | + +------+ + Encounter Details +--------+ + + + + | Date | Type | Department | Care Team | Description | +--------+ + + + + | 09/26/ | Employee Relations Director | Hematology | Marie Liz, | Malignant neoplasm | | 2018 | | Oncology Study [address] | [address] | of lower third of | | | | [address] | [address] | esophagus (HCC) | | | | Mailcode: CH7M | [place] [address] | (Primary Dx) | | | | [facility] | [phone] | | | | | and Monika, | | | | | | [facility] | | | | | | Floor [place], [place] | | | | | | [address] | | | | | | [phone] | | | +--------+ + + + [...] [facility] | [address] | [place] [address] | | | SERVICES, CORE | ASHLEY [...] [facility] | [address] | [place] [address] | | | SERVICES, CORE | PARK [...] + + + + | [facility] | [address] | [place] [address] | | | SERVICES, CORE | PARK [...] | [facility] | | | GRAVITY | [place] performed by | | LABORATORY | | [...] | + + + + + | [facility] | [address] | [place] [address] | | | SERVICES, CORE | ASHLEY [...] LABORATORY | [address] | [place] [address] | | | SERVICES, CORE | [address] | | | + + + + + documented in this encounter Visit Diagnoses + + | Diagnosis | + + | 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
--- OUTSIDE RECORDS SUMMARY | ~2019-11-23 | XMS | Encounter Summary ---
Demographics + + + | Address | [address] | | | [place] [address] | + + + | Home Phone [...] Team Providers + +------+ + | Care Oven Dauber Name | Role | Phone | + [...] | | Oncology | Malignant | MD Diaja | Krunal Dudley MD | | | | | neoplasm of | [address] | [address] [facility] | | | | | lower third | Veterans | [facility] | | | | | of esophagus | [facility] | Rd | | | | | Esophagus | Road | [place], [place] | | | | | Ca | [facility] [place] | [address] | | | | | Procedures | [address] | Phone: | | | | | Consult, | Phone: | [phone] | | | | | Sage Wilkins | [phone] | Fax: | | | | | | Fax: | [phone] | | | | | | [phone] | | +--------+--------+ + + + + Encounter Details +--------+ + + + + | Date | Type | Department | Care Team | Description | +--------+ + + + + | 01/02/ | Hospital | Radiation Oncology | | | | 2018 | Encounter | at [facility] [address] | | | | | | [place] | | | | | | [id number] [facility] | | | | | | HOSPITAL [place], | | | | | | [place] [address] | | | | | | [phone] | | | +--------+ + + + [...]
--- OUTSIDE RECORDS SUMMARY | ~2019-11-23 | XMS | Encounter Summary ---
Demographics + + + | Address | [address] | | | [place] [address] | + + + | Home Phone [...] Providers + +------+ + | Care Manager Culinary Name | Role | Phone | + [...] | | of esophagus | Hospital | [facility] | | | | | | Road | Health and | | | | | | [place], [place] | Healing, | | | | | | [address] | Building [address] | | | | | | Phone: | [place], [place] | | | | | | [phone] | [address] | | | | | | Fax: | Phone: | | | | | | [phone] | [phone] | | | | | | | Fax: | | | | | | | [phone] | + +--------+ + + + + Encounter Details +--------+---------+ + + + | Date | Type | Department | Care Team | Description | +--------+---------+ + + + | 07/09/ | Office | Digestive Health | Eleonora Ybarra, | Malignant neoplasm | | 2018 | Visit | Center at [facility] [address] | MD [address] | of lower third of | | | | [address] | Ave [place], [place] | esophagus (HCC) | | | | Mailcode: Center | [address] | (Primary Dx); | | | | for Health and | [phone] | Jejunostomy tube | | | | Healing, Building 2 | | present (HCC) | | | | [place], [place] | | | | | | [address] | | | | | | [phone] | | | +--------+---------+ + + + [...] Surgery Clinic Follow-Up Note Patient: Jacob Sapp ([id number]) Date: 07/09/2018 ID: Jacob Sapp is a [...] Eleonora Ybarra MD [facility] 6TH FLOOR [address] Mailcode: [place] [address] documented in this encounter Plan [...]
--- OUTSIDE RECORDS SUMMARY | ~2019-11-23 | XMS | Encounter Summary ---
Demographics + + + | Address | [address] | | | [place] [address] | + + + | Home Phone [...] Team Providers + +------+ + | Care Middle School Band Teacher Name | Role | Phone | [...] | | | | | Procedures | [place], [place] | Health and | | | | | [place] | [address] | Healing, | | | | | SERVICES | Phone: | Building 2 | | | | | PROVIDED | [phone] | [place], [place] | | | | | PART OF [place] | Fax: | [address] | | | | | [address]J | [phone] | Phone: | | | | | [address] | | [phone] | | | | | [place] EST | | Fax: | | | | | PATIENT | | [phone] | | | | | LEVEL V | | | | | | | Study IRB: | | | | | | | [id number] Study | | | | | | [...] Description | +--------+---------+ + + + | 04/22/ | Office | Hematology/Medical | Krunal Godoy, | Malignant neoplasm | | 2019 | Visit | Oncology at [place] | ,PhD [address] | of lower third of | | | | for Health & Healing | Ave [place], [place] | esophagus (HCC) | | | | [address] | [address] | (Primary Dx); | | | | Mailcode: [place] | [phone] | Clinical trial exam; | | | | for Health and | | Encounter for | | | | Healing, Building 2 | | antineoplastic | | | | [place], [place] | | immunotherapy | | | | [address] | | | | | | [phone] | | | +--------+---------+ + + + [...] + + + | Blood Pressure | 139/76 | 04/22/2019 2:29 PM | | | | | PDT | | + + + + + | Pulse | 63 | 04/22/2019 2:29 PM | | | | | PDT | | + + + + + | Temperature | 36.6 C (97.8 F) | 04/22/2019 2:29 PM | | | | | PDT | | + + + + + | Respiratory Rate | 16 | 04/22/2019 2:29 PM | | | | | PDT | | + + + + + | Oxygen Saturation | 100% | 04/22/2019 2:29 PM | | | | | PDT | | + + + + + | Inhaled Oxygen | - | - | | | Concentration | | | | + + + + + | Weight | 71.9 kg (158 lb 9.6 | 04/22/2019 2:29 PM | | | | oz) | PDT | | + + + + + | Height | - | - | | + + + + + | Body Mass Index | 24.12 | 12/24/2018 9:35 AM | | | [...] encounter Progress Notes Krunal Godoy MD,PhD - 04/22/2019 2:30 PM PDT ID: Jacob Sapp is a [...] no response, score 3) - 07/31/2018 [facility] Medical oncology evaluation- offered enrollment on Checkmate [...] History: Ongoing Nivolumab/placebo study treatment. Tolerating well. Tired from da [place] wedding. Otherwise he has been eating and drinking well. Stable food dysphagia. He d enies jaundice, diarrhea, varsha-colored and loose stools, dyspnea, falls, loss of consciousne ss, pain with swallowing, and rashes. Review of Systems: denies fevers. Remainder of complete 14 pt review of systems negative ex cept as above. PFSH: I reviewed and updated. Good social support system. Physical Examination: BP 139/76 (BP Location: Right upper arm, Patient Position: Sitting) | Pulse 63 | Temp 36. 6 C (97.8 F) (Oral) | Resp 16 | Wt 71.9 kg (158 lb 9.6 oz) | SpO2 100% | BMI 24.12 k g/m | BSA 1.86 m General: [...] Lab Results Component Value Date NA 140 04/22/2019 K 3.4 04/22/2019 CL 103 04/22/2019 BICARB 27 04/22/2019 BUN 13 04/22/2019 CR 0.84 04/22/2019 GLU 102 04/22/2019 CA 8.9 04/22/2019 AST 51 04/22/2019 ALT 67 04/22/2019 AP 116 04/22/2019 TBILI 0.4 04/22/2019 TP 7.5 04/22/2019 ALB 3.6 04/22/2019 Lab Results Component Value Date WBC 3.26 04/22/2019 HB 11.6 04/22/2019 HCT 33.8 04/22/2019 PLT 135 04/22/2019 MCV 100.6 04/22/2019 RDW 50.6 04/22/2019 Plan/ Recommendations: 1. Cancer Staging Malignant neoplasm [...] - not discussed today d/t improved mood. Research Note Study #: [id number] Patient Name: Jacob Sapp Patient Medical/Surgical History Date Cervical spinal stenosis 1997 Coronary artery disease - diagnosed on angiogram when experienced chest pain - treated with medications, pain attributed to esophageal spasm, never had UT or stent 2007 H/O Diverticulosis 1997 Hernia, [...] baseline N/A - baseline N/A Urinary retention 05/2018 2 N/A - baseline N/A - [...] baseline N/A - baseline N/A Constipation, intermittent 05/2018 1 N/A - baseline N/A - [...] none 2 = no N Last updated: 04/16/2019 documented in this encounter Plan of Treatment Not on filedocumented as of this encounter Procedures + +--------+ + + + | Procedure Name | Priori | Date/Time | Associated Diagnosis | Comments | | | ty | | | | + +--------+ + + + | ADMINISTER | Routin | 04/22/2019 | | | | CHEMOTHERAPY PER | e | 2:52 PM | | | | TREATMENT PARAMETERS [...]
--- OUTSIDE RECORDS SUMMARY | ~2019-11-23 | XMS | Encounter Summary ---
Demographics + + + | Address | [address] | | | [place] [address] | + + + | Home Phone [...] Team Providers + +------+ + | Care Baby Nurse Name | Role | Phone | + +------+ + | Christos Olivarez MD | PCP | | + +------+ + Encounter Details +--------+ + + + + | Date | Type | Department | Care Team | Description | +--------+ + + + + | 05/19/ | Account Development Specialist | Hematology/Medical | Krunal Godoy, | | | 2019 | | Oncology at [place] | ,PhD [address] | | | | | for Health & Healing | [place], [place] | | | | | [address] | [address] | | | | | Mailcode: [place] | [phone] | | | | | for Health and | | | | | | [facility], [facility] 2 | | | | | | [place], [place] | | | | | | [address] | | | | | | [phone] | | | +--------+ + + + [...]
--- OUTSIDE RECORDS SUMMARY | ~2019-11-23 | XMS | Encounter Summary ---
Demographics + + + | Address | [address] | | | [place] [address] | + + + | Home Phone [...] Team Providers + +------+ + | Care Consumer Relations Specialist Name | Role | Phone | [...] | | | | lower third | [address] | Mailcode: | | | | | of esophagus | [address] | Center for | | | | | Procedures | [place], [place] | Health and | | | | | [place] | [address] | Healing, | | | | | SERVICES | Phone: | Building 2 | | | | | PROVIDED | [phone] | [place], [place] | | | | | PART OF [place] | Fax: | [address] | | | | | INJ | [phone] | Phone: | | | | | [address] | | [phone] | | | | | MG Study | | Fax: | | | | | IRB: [id number] | | [phone] | | | | | Study Title: [...] | Oncology at [facility] | [address] [place], | | | | | [address] | [place] [address] | | | | | Mailcode: [place] | | | | | | for Health and | | | | | | [facility], [facility] | | | | | | [place], [place] | | | | | | [address] | | | | | | [phone] | | | +--------+ + + + [...] placed in bin for study coordinato r tile picker. Pt had labs drawn within 14 [...] remote memory i ntact and discharged with family/straddle bug driver and ambulatory. Refer to MAR and [...] | | 09/03/18 at 1500, Pt ID: [id number], | | | | | | | Administer using a 0.2 micron | | | | | | | filter. Flush line with 15-20 mL | | | | | | | of normal saline. For | | | | | | | investigational use only, HIGH | | | | | | | ALERT MEDICATION IRB:[id number], | | | | | | | Protocol:[id number], Infuse using | | | | | | | 0.2 micron filter., | | | | | | + +---------+ +--------+-------+------+ +---+---+ | | | +---+---+ documented in this encounter"
--- OUTSIDE RECORDS SUMMARY | ~2019-11-23 | XMS | Encounter Summary ---
Demographics + + + | Address | [address] | | | [place] [address] | + + + | Home Phone [...] Team Providers + +------+ + | Care Safety Equipment Tester Name | Role | Phone | [...] [id number] | | | | | | [address] [address] | | | | | | [address] [place], [place] | | | | | | [address] | | | | | | [phone] | | | +--------+ + + + [...]
--- OUTSIDE RECORDS SUMMARY | ~2019-11-23 | XMS | Encounter Summary ---
Demographics + + + | Address | [address] | | | [place] [address] | + + + | Home Phone [...] Team Providers + +------+ + | Care Temple Marker Name | Role | Phone | + +------+ + | Christos Olivarez MD | PCP | | + +------+ + Encounter Details +--------+ + + + + | Date | Type | Department | Care Team | Description | +--------+ + + + + | 07/22/ | Procedure | Diagnostic Imaging | | | | 2019 | Pass | Services at [facility] | | | | | | [address] | | | | | | Katherine French Mailcode: | | | | | | [address] [facility] | | | | | | [place], [place] | | | | | | [address] | | | | | | [phone] | | | +--------+ + + + [...]
--- OUTSIDE RECORDS SUMMARY | ~2019-11-23 | XMS | Encounter Summary ---
Demographics + + + | Address | [address] | | | [place] [address] | + + + | Home Phone [...] Team Providers + +------+ + | Care Pantry Chef Name | Role | Phone | + [...] | | 2018 | | Center at [facility] [address] | MD [address] | | | | | [address] | Ave [place], [place] | | | | | Mailcode: [place] | [address] | | | | | [facility] and | [phone] | | | | | [facility], [facility] 2 | | | | | | [place], [place] | | | | | | [address] | | | | | | [phone] | | | +--------+ + + + [...]
--- OUTSIDE RECORDS SUMMARY | ~2019-11-23 | XMS | Encounter Summary ---
Demographics + + + | Address | [address] | | | [place] [address] | + + + | Home Phone [...] Team Providers + +------+ + | Care Instrument Checker Name | Role | Phone | [...] [address] | | | | | [facility] | [place], | | | | | Hospital Admitting | [place] [address] | | | | | Desk Located on the | [phone] | | | | | 9th floor | | | | | | [place], [place] | [place]es [place] | | | | | [address] | [address] | | | | | | [place] [facility] | | | | | | [place] [address] | | | | | | [phone] | | | | | | | [...] ; J-tube; Abdomen UL; 12 | Gurinder Tipton [...]
--- OUTSIDE RECORDS SUMMARY | ~2019-11-23 | XMS | Encounter Summary ---
Demographics + + + | Address | [address] | | | [place] [address] | + + + | Home Phone [...] Team Providers + +------+ + | Care Ammonium Nitrate Neutralizer Name | Role | Phone | + [...] | Oncology at [facility] | [address] [place], | | | | | [address] | [place] [address] | | | | | Mailcode: [place] | | | | | | for Health and | | | | | | [facility], [facility] 2 | | | | | | [place], [place] | | | | | | [address] | | | | | | [phone] | | | +--------+ + + + [...] Mood & affect appropriate and discharged with family/trackless trolley driver and ambulatory. Refer to MAR and [...] | | | at 1515, Pt ID: [id number]. | | | | | | | Administer using a 0.2 micron | | | | | | | filter. Flush line with 15-20 mL | | | | | | | of normal saline. For | | | | | | | investigational use only, HIGH | | | | | | | ALERT MEDICATION IRB:[id number], | | | | | | | Protocol:[id number], Infuse using | | | | | | | 0.2 micron filter., | | | | | | + +---------+ +--------+-------+------+ +---+---+ | | | +---+---+ documented in this encounter"
--- OUTSIDE RECORDS SUMMARY | ~2019-11-23 | XMS | Encounter Summary ---
Demographics + + + | Address | [address] | | | [place] [address] | + + + | Home Phone [...] Phone | + + +---------+ + | Mauricoi Sapp | ECON | Unknown | | + + +---------+ + | Flower Sapp | ECON | Unknown | | + + +---------+ + Care Team Providers + +------+ + | Care Adjunct Psychology Faculty Member Name | Role | Phone [...] | [facility] at [facility] | [address] [place], | | | | | [address] | [place] [address] | | | | | Mailcode: [place] | | | | | | Health and | | | | | | Healing, Building [address] | | | | | | [place], [place] | | | | | | [address] | | | | | | [phone] | | | +--------+ + + + [...] | | | at 1130, Pt ID: [id number], | | | | | | | Administer using a 0.2 micron | | | | | | | filter. Flush line with 15-20 mL | | | | | | | of normal saline. For | | | | | | | investigational use only, HIGH | | | | | | | ALERT MEDICATION IRB:[id number], | | | | | | | Protocol:[id number], Infuse using | | | | | | | 0.2 micron filter., | | | | | | + +---------+ +--------+-------+------+ +---+---+ | | | +---+---+ documented in this encounter"
--- OUTSIDE RECORDS SUMMARY | ~2019-11-23 | XMS | Encounter Summary ---
Demographics + + + | Address | [address] | | | [place] [address] | + + + | Home Phone | | + + + | Preferred Language | Unknown | + + + | Marital Status | | + + + | Rastafari Affiliation | CAT | + + + [...] Team Providers + +------+ + | Care Cnc Mill Programmer Name | Role | Phone | [...] | | | | lower third | [address] | Mailcode: | | | | | of esophagus | [address] | Center for | | | | | Procedures | [place], [place] | Health and | | | | | [place] | [address] | Healing, | | | | | SERVICES | Phone: | Building 2 | | | | | PROVIDED | [phone] | [place], [place] | | | | | PART OF [place] | Fax: | [address] | | | | | INJ | [phone] | Phone: | | | | | N[address]OLUMAB 1 | | [phone] | | | | | MG [place] EST | | Fax: | | | | | PATIENT | | [phone] | | | | | LEVEL V | | | | | | | Study IRB: | | | | | | | [id number] Study | | | | | | [...] | 2018 | Visit | [facility] [place] | [address] | of lower third of | | | | [facility] | [address] | esophagus (HCC) | | | | [address] | [place], [place] | (Primary Dx); | | | | Mailcode: [place] | [address] | Clinical trial exam | | | | [facility] and | [phone] | | | | | [place] [address] | | | | | | [place], [place] | | | | | | [address] | | | | | | [phone] | | | +--------+---------+ + + + [...] or no response, score 3) - 07/31/2018 [facility] Medical oncology evaluation- offered [...] toxicities - [place]ed RX for [place]fran to [place] pharmacy 10/15/18 1?45pm 2. Neck pain - [...] 43.3 10/15/2018 Yun Ronquillo M.S., POOJA Physician Packing Tractor Machine Operator Medical Oncology Pager [phone] documented in t his encounter Plan of [...]
--- OUTSIDE RECORDS SUMMARY | ~2019-11-23 | XMS | Encounter Summary ---
Demographics + + + | Address | [address] | | | [place] [address] | + + + | Home Phone [...] Team Providers + +------+ + | Care Candy Starch Mold Printer Name | Role | Phone | + [...] Deion | radiotherapy | | | | [place] | [address] | (Primary Dx) | | | | [id number] [facility] | [place], [place] | | | | | [facility], | [address] | | | | | [place] [address] | [phone] | | | | | [phone] | | | +--------+---------+ + + + [...] DANIEL BARRERA MD Dept of Radiation Medicine [facility] Cony Newton - 01/03/2018 9:40 AM PST [...] Visit Note ID: 67 y.o. male with [id number] esophageal adenocarcinoma (7 LN) 36-44cm from the [...]
--- OUTSIDE RECORDS SUMMARY | ~2019-11-23 | XMS | Encounter Summary ---
Demographics + + + | Address | [address] | | | [place] [address] | + + + | Home Phone [...] Team Providers + +------+ + | Care Marine Equipment Preservation Inspector Name | Role | Phone | [...] | On[facility] at [facility] | [address] [place], | | | | | [address] | [place] [address] | | | | | Mailcode: [place] | | | | | | for Health and | | | | | | [facility] | | | | | | [place], [place] | | | | | | [address] | | | | | | [phone] | | | +--------+ + + + [...] for Day 1 cycle 14 of INV 45350 Nivolumab/placebo. PIV placed in starter and labs drawn. Positive blood return on IV line prior and after infu callie. Medication infused with 250ml NS sidearm bag. Pt tolerated without incident. PIV d/ c'd and intact. Pt Alert & Oriented x3 and discharged with family/rickshaw driver. Refer to MAR and Onc Lines [...] | | 05/20/19 at 1500, Pt ID: [id number], | | | | | | | Administer using a 0.2 micron | | | | | | | filter. Flush line with 15-20 mL | | | | | | | of normal saline. For | | | | | | | investigational use only, HIGH | | | | | | | ALERT MEDICATION IRB:[id number], | | | | | | | Protocol:[id number], Infuse using | | | | | | | 0.2 micron filter., | | | | | | + +---------+ +--------+-------+------+ +---+---+ | | | +---+---+ documented in this encounter"
--- OUTSIDE RECORDS SUMMARY | ~2019-11-23 | XMS | Encounter Summary ---
Demographics + + + | Address | [address] | | | [place] [address] | + + + | Home Phone [...] Team Providers + +------+ + | Care Converting Operator Name | Role | Phone | [...]
--- OUTSIDE RECORDS SUMMARY | ~2019-11-23 | XMS | Encounter Summary ---
Demographics + + + | Address | [address] | | | [place] [address] | + + + | Home Phone [...] Team Providers + +------+ + | Care Charge Account Identification Clerk Name | Role | Phone | [...] | Mailcode: | | | | | ([facility]) | [place], [place] | [address] | | | | | Procedures | [address] | [place] | | | | | SIMULATION | Phone: | Hospital | | | | | IMAGING | [phone] | [facility] | | | | | | Fax: | [place], [place] | | | | | | [phone] | [address] | | | | | | | Phone: | | | | | | | [phone] | | | | | | | Fax: | | | | | | | [phone] | +--------+--------+ + + + + Reason [...] | | | Esophagus | Road | [place], [place] | | | | | Ca | [place] | [address] | | | | | Procedures | [address] | Phone: | | | | | Consult, | Phone: | [phone] | | | | | Treat, F/U | [phone] | Fax: | | | | | | Fax: | [phone] | | | | | | [phone] | | +--------+--------+ + + + + [...] lower third of | | | | [address] | [address] | esophagus (HCC) | | | | [id number] [facility] | [place], [place] | (Primary Dx) | | | | [facility], | [address] | | | | | [place] [address] | [phone] | | | | | [phone] | | | +--------+---------+ + + + [...] Daniel Barrera MD Dept of Radiation Medicine [facility] [place] pril Mata MA - 12/06/2017 10:30 AM PSTNursing documentation: Pt here for a consultation visit with Dr. Sanchez regarding radiation treatment options. Pt a lert, oriented, and ambulatory with a steady gait Pt oriented to clinic and reviewed the Introduction to the [facility] Radiation Oncology Departme nt pt information handout. Pt verbalizes understanding. Patient does not have an Advanced Directive. Provided information regarding advanced care planning and informed patient that we have a social worker masters who can assist if patient is interested in completing this documentation. Requested patient bring a copy of their Advanced Directive to their next Radiation Oncolog y appointment. 8 minutes was spent in face to face discussion and teaching with the patient. Cony Newton - 10:30 AM PST RADIATION ONCOLOGY CONSULTATION AR ID: [id number] Requesting Physician: Dr. Daija Moyer MD ID: Con L Senait is a 67 year old man with Stage HERMELINDO [id number] esophageal adenocarcinoma (7 LN) 36-44cm from the incisors, 2.4cm thick. HPI: The patient initially presented to [facility] with 2 weeks of progressive weakne ss, [...] Ortez who was in agreement with neoadjuvant FILLER SHAKER and resection pending tumo r board conversation; [...] Narrative No narrative on file lives in [place] with his . 3 children. 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 It [...] a 67 y.o. man with Stage HERMELINDO [id number] esophageal adenocarcinoma (7 LN) 36-44cm from the incisors, 2.4cm thick. A Cross trial treatment has been recommended (neoadjuvant FILLER SHAKER then resection). We agree wi th this plan as the Cross Trial showed more R0 resections (92% vs 69% p<0.001) and increased overall survival (49.4mo vs 24mo p = 0.003) in the FILLER SHAKER with surgery group vs surgery alone without an increase in postoperative complications. In this trial, neoadjuvant FILLER SHAKER consiste d of 41.4Gy in 23 fractions [...] [facility] 2) simulation 3) FILLER SHAKER per Cross Trial - RT with concurrent carbo/taxel This patient was seen, examined, and discussed with my attending, Dr. Barrera who agree s with this assessment and plan. Cony LOPEZ Dept of Radiation Medicine [facility] [place] documented in this enco unter Plan of [...]
--- OUTSIDE RECORDS SUMMARY | ~2019-11-23 | XMS | Encounter Summary ---
Demographics + + + | Address | [address] | | | [place] [address] | + + + | Home Phone [...] Providers + +------+ + | Care Jet Wiper Name | Role | Phone | + [...] | | | [facility] | [place], [place] | WASHINGS, | | | | Hospital Admitting | [address] | | | | | Desk Located on the | [phone] | | | | | 9th floor | | | | | | [place], [place] | | | | | | [address] | | | +--------+---------+ + + + [...] + +--------+ + + + | NON SMALL STOCK FACER CYTOLOGY | Routin | 04/10/2018 | | [...] Preoperative Diagnosis: esophageal cancer | | | [id number] Postoperative Diagnosis: same Procedure: 1. | | | Diagnostic laparoscopy 2. Intraabdominal washings 3. Jejunostomy | | | tube exchange 4. EGD Surgeon Eleonora Ybarra MD | | | E Commerce Project Manager(s): Rand Wallace MD Indication: A 67 y.o. [...] | MIRACLE FERRARI MD General Surgery Resident [facility] | | | [facility] Pager [phone] I was present for the entire | | | procedure on 04/10/18 as described in the note for this encounter. | | | Eleonora Ybarra MD [facility] [address] | | | [address] [place] [address] | | + + + SURGICAL PATHOLOGY [...] number | | | | | | [id number]. Stomach, | | | | | | [...] | + + + + + | [facility] | [address] | [place] [address] | | | PATHOLOGY | [address] | | | + + + + + NON SMALL STOCK FACER CYTOLOGY (04/10/2018 8:32 AM PDT) + + [...] | | | | | | Harley Mathew MD | | | | | [...] | + + + + + | [facility] | [address] | [place] [address] | | | PATHOLOGY | [address] [...]
--- OUTSIDE RECORDS SUMMARY | ~2019-11-23 | XMS | Encounter Summary ---
Demographics + + + | Address | [address] | | | [place] [address] | + + + | Home Phone [...] Providers + +------+ + | Care Supervisor Shellfish Farming Name | Role | Phone | + [...] | | | | | | Rd [facility] | | | | | | Hospital Admitting | | | | | | Desk Located on the | | | | | | 9th floor | | | | | | [place], [place] | | | | | | [address] | | | +--------+ + + + [...]
--- OUTSIDE RECORDS SUMMARY | ~2019-11-23 | XMS | Encounter Summary ---
Demographics + + + | Address | [address] | | | [place] [address] | + + + | Home Phone [...] Team Providers + +------+ + | Care Dam Tender Name | Role | Phone | [...] Closed | | Radiology | Diagnoses | Dlilon | [address] Ct Scan | | | | | | MD Kristina | [facility] [address] | | | | | Gastroesopha | [address] | [address] | | | | | geal cancer | [facility] | Mailcode: | | | | | (HCC) | Rd | [facility] | | | | | Procedures | [place], [place] | for [facility] | | | | | CT CHEST, | [address] | and Healing, | | | | | ABDOMEN AND | | Building [address], | | | | | [address] | | 3rd Floor | | | | | CONTRAST | | [place], [place] | | | | | | | [address] | | | | | | | Phone: | | | | | | | [phone] | | | | | | | Fax: | | | | | | | [phone] | +--------+--------+ + + + + Reason [...] | | | | geal cancer | [facility] | Mailcode: | | | | | (HCC) | Rd | [facility] | | | | | Procedures | [place], [place] | for Health | | | | | CT CHEST, | [address] | and Healing, | | | | | ABDOMEN AND | | Building 1, | | | | | [address] | | 3rd Floor | | | | | CONTRAST | | [place], [place] | | | | | | | [address] | | | | | | | Phone: | | | | | | | [phone] | | | | | | | Fax: | | | | | | | [phone] | +--------+--------+ + + + + Encounter Details +--------+ + + + + | Date | Type | Department | Care Team | Description | +--------+ + + + + | 03/22/ | Hospital | Radiology/Imaging | Eleonora Ybarra, | | | 2017 | Encounter | Lab at [facility] [address] | MD [address] | | | | | [address] [place] Mailcode: | [place], [place] | | | | | [facility] | [address] | | | | | Health and Healing, | [phone] | | | | | Building 1, 3rd | | | | | | Floor [place], [place] | | | | | | [address] | | | | | | [phone] | | | +--------+ + + + [...] | + + + + + | [facility], POINT | [address] [facility] | [place] [address] | | | OF CARE TESTS | [...]
--- OUTSIDE RECORDS SUMMARY | ~2019-11-23 | XMS | Encounter Summary ---
Demographics + + + | Address | [address] | | | [place] [address] | + + + | Home Phone [...] Team Providers + +------+ + | Care Concierge Manager Name | Role | Phone | [...] | | | neoplasm of | ,PhD [address] | | | | | | lower third | [address] | | | | | | of esophagus | [place], | | | | | | (HCC) | [place] | | | | | | Procedures | [address] | | | | | | US NEEDLE | Phone: | | | | | | BIOPSY | [phone] | | | | | | SUPERFICIAL | Fax: | | | | | | LYMPH NODE | [phone] | | | | | | W/ [...] | 2019 | Encounter | [facility] at [place] | ,PhD [address] | | | | | for Health & Healing | [place], [place] | | | | | [address] | [address] | | | | | Mailcode: [place] | [phone] | | | | | [facility] Health and | | | | | | [facility] [place] [address] | | | | | | [place], [place] | | | | | | [address] | | | | | | [phone] | | | +--------+ + + + [...]
--- OUTSIDE RECORDS SUMMARY | ~2019-11-23 | XMS | Encounter Summary ---
Demographics + + + | Address | [address] | | | [place] [address] | + + + | Home Phone [...] Providers + +------+ + | Care Patient Relations Liaison Name | Role | Phone | + [...] | | | | lower third | [address] | Mailcode: | | | | | of esophagus | [address] | Center for | | | | | Procedures | [place], [place] | Health and | | | | | [place] | [address] | Healing, | | | | | SERVICES | Phone: | Building 2 | | | | | PROVIDED | [phone] | [place], [place] | | | | | PART OF [place] | Fax: | [address] | | | | | INJ | [phone] | Phone: | | | | | N[address]UMAB 1 | | [phone] | | | | | MG [place] EST | | Fax: | | | | | PATIENT | | [phone] | | | | | LEVEL V | | | | | | | Study IRB: | | | | | | | [id number] Study | | | | | | [...] | 2018 | Visit | [facility] [place] | [address] | of lower third of | | | | [employer] | Road [address] | esophagus (HCC) | | | | [address] | [place] [address] | (Primary Dx) | | | | Mailcode: [place] | [phone] | | | | | [facility] and | | | | | | [facility] 2 | | | | | | [place], [place] | | | | | | [address] | | | | | | [phone] | | | +--------+---------+ + + + [...] after signing consent to particip ate in [id number]: A Randomized, Multicenter, Double Blind, Phase III [...] 70.2 kg IV access: PIV RD/SW referral: loss prevention investigator at [facility] established Multi-D MD: Chemotherapy teaching: done per chemo binder and ICF My Chart access: active and encouraged Patient reports that neoadjuvant chemo was completed at [facility] in [place], [place]. Radiation completed at [facility]. He reports the following medical and surgical history at baseline: Past Medical History: Diagnosis Date Cervical spinal stenosis 1997 Coronary artery disease 2007 diagnosed on angiogram when experienced chest pain - treated with medications, pain attr ibuted to esophageal spasm, never had NH or stent H/O Diverticulosis 1997 Hernia, hiatal, [...] or no response, score 3) - 07/31/2018 [facility] Medical oncology evaluation- offered enrollment on [...] agree with report Marie Liz MD Clinical golf ball molder Medical Oncology and Hematology documented in this encou nter Plan of Treatment Not on filedocumented as of this encounter Visit Diagnoses + + | Diagnosis | + + | Malignant neoplasm of lower third of esophagus (HCC) - Primary Malignant neoplasm of | | lower third of esophagus | + + documented in this encounter
--- OUTSIDE RECORDS SUMMARY | ~2019-11-23 | XMS | Encounter Summary ---
Demographics + + + | Address | [address] | | | [place] [address] | + + + | Home Phone [...] Providers + +------+ + | Care Production Control Analyst Name | Role | Phone | [...] [address] | [address] [facility] | | | | | lower third | [facility] | | | | | of esophagus | [facility] | Rd | | | | | Esophagus | Road | [facility] [place] | | | | | Ca | [facility] [place] | [address] | | | | | Procedures | [address] | Phone: | | | | | Consult, | Phone: | [phone] | | | | | Sage Wilkins | [phone] | Fax: | | | | | | Fax: | [phone] | | | | | | [phone] | | +--------+--------+ + + + + Encounter Details +--------+ + + + + | Date | Type | Department | Care Team | Description | +--------+ + + + + | 01/03/ | Hospital | Radiation Oncology | | | | 2018 | Encounter | at [facility] [address] | | | | | | Reading | | | | | | [id number] [facility] | | | | | | HOSPITAL [place], | | | | | | [place] [address] | | | | | | [phone] | | | +--------+ + + + [...]
--- OUTSIDE RECORDS SUMMARY | ~2019-11-23 | XMS | Encounter Summary ---
Demographics + + + | Address | [address] | | | [place] [address] | + + + | Home Phone [...] Team Providers + +------+ + | Care Dip Painter Name | Role | Phone | [...] | 2017 | | Center at [facility] [address] | [address] | | | | | [address] | [place], [place] | | | | | Mailcode: [place] | [address] | | | | | for Health and | [phone] | | | | | Healing, Building 2 | | | | | | [place], [place] | | | | | | [address] | | | | | | [phone] | | | +--------+ + + + [...]
--- OUTSIDE RECORDS SUMMARY | ~2019-11-23 | XMS | Encounter Summary ---
Demographics + + + | Address | [address] | | | [place] [address] | + + + | Home Phone [...] Team Providers + +------+ + | Care Roustabout Pusher Name | Role | Phone | + [...] | | 2019 | | [facility] at [place] | ,PhD [address] | | | | | for Health & Healing | Ave [place], [place] | | | | | [address] | [address] | | | | | Mailcode: [place] | [phone] | | | | | for Health and | | | | | | Healing, Building 2 | | | | | | [place], [place] | | | | | | [address] | | | | | | [phone] | | | +--------+ + + + [...]
--- OUTSIDE RECORDS SUMMARY | ~2019-11-23 | XMS | Encounter Summary ---
Demographics + + + | Address | [address] | | | [place] [address] | + + + | Home Phone [...] Team Providers + +------+ + | Care Malt Specifications Control Assistant Name | Role | Phone | [...] | | 2018 | | Center at [facility] [address] | MD [address] | Order | | | | [address] | Ave [place], [place] | | | | | Mailcode: [place] | [address] | | | | | for Health and | [phone] | | | | | [place] [address] | | | | | | [place], [place] | | | | | | [address] | | | | | | [phone] | | | +--------+ + + + [...]
--- OUTSIDE RECORDS SUMMARY | ~2019-11-23 | XMS | Encounter Summary ---
Demographics + + + | Address | [address] | | | [place] [address] | + + + | Home Phone [...] Team Providers + +------+ + | Care Cash Applications Specialist Name | Role | Phone | [...] | | | | lower third | [address] | Mailcode: | | | | | of esophagus | [address] | Center for | | | | | Procedures | [place], [place] | Health and | | | | | [place] | [address] | Healing, | | | | | SERVICES | Phone: | Building 2 | | | | | PROVIDED | [phone] | [place], [place] | | | | | PART OF [place] | Fax: | [address] | | | | | INJ | [phone] | Phone: | | | | | [address] 1 | | [phone] | | | | | MG Study | | Fax: | | | | | IRB: [id number] | | [phone] | | | | | Study Title: [...] | 2019 | Encounter | Oncology at [facility] | [address] [place], | | | | | [address] | [place] [address] | | | | | Mailcode: Center | | | | | | for Health and | | | | | | [facility] 2 | | | | | | [place], [place] | | | | | | [address] | | | | | | [phone] | | | +--------+ + + + [...] POINT | [address] | [place] [address] | | | OF CARE TESTS | [...] | 0.0 - 0.1 | [facility], | | | | | [...] [facility] POINT | [address] | [place] [address] | | | OF CARE TESTS | [...] [facility] | [address] | [place] [address] | | | SERVICES, CORE | PARK [...] | [facility] | [address] | [place] [address] | | | SERVICES, JUSTIN | ASHLEY [...] [facility] | [address] | [place] [address] | | | SERVICES, CORE | ASHLEY [...] | + + + + + | [facility] | [address] | [place] [address] | | | JUSTIN [place] | ASHLEY [...] - | | | | | | [facility] | | + +--------+ + + + [...] + | [facility] - AIRPORT - | [address] | [place] [address] | | | [facility] | | | | + + + [...] | + + + + + | [facility] | [address] | [place] [address] | | | SERVICES, CORE | PARK [...] | | 01/22/19 at 1345, Pt ID: [id number], | | | | | | | Administer using a 0.2 micron | | | | | | | filter. Flush line with 15-20 mL | | | | | | | of normal saline. For | | | | | | | investigational use only, HIGH | | | | | | | ALERT MEDICATION IRB:[id number], | | | | | | | Protocol:[id number], Infuse using | | | | | | | 0.2 micron filter., | | | | | | + +---------+ +--------+-------+------+ +---+---+ | | | +---+---+ documented in this encounter"
--- OUTSIDE RECORDS SUMMARY | ~2019-11-23 | XMS | Encounter Summary ---
Demographics + + + | Address | [address] | | | [place] [address] | + + + | Home Phone [...] Team Providers + +------+ + | Care Mastic Floor Layer Name | Role | Phone | + [...] | | | | | Procedures | [place], [place] | Health and | | | | | [place] | [address] | Healing, | | | | | SERVICES | Phone: | Building 2 | | | | | PROVIDED | [phone] | [place], [place] | | | | | PART OF [place] | Fax: | [address] | | | | | INJ | [phone] | Phone: | | | | | [address] | | [phone] | | | | | [place] EST | | Fax: | | | | | PATIENT | | [phone] | | | | | LEVEL V | | | | | | | Study IRB: | | | | | | | [id number] Study | | | | | | [...] | 2019 | Visit | Oncology at [facility] | ,PhD [address] | of lower third of | | | | for Health & Healing | Ave [place], [place] | esophagus (HCC) | | | | [address] | [address] | (Primary Dx); | | | | Mailcode: [facility] | [phone] | Clinical trial exam; | | | | for Health and | | Encounter for | | | | Healing, Building 2 | | antineoplastic | | | | [place], [place] | | immunotherapy | | | | [address] | | | | | | [phone] | | | +--------+---------+ + + + [...] or no response, score 3) - 07/31/2018 [facility] Medical oncology evaluation- offered [...] study treatment. Tolerating well. Tired from da [employer] wedding. Otherwise he has been eating and [...] improved mood. Research Note Study #: [id number] Patient Name: Jacob Sapp Patient Medical/Surgical History [...]
--- OUTSIDE RECORDS SUMMARY | ~2019-11-23 | XMS | Encounter Summary ---
Demographics + + + | Address | [address] | | | [place] [address] | + + + | Home Phone [...] Team Providers + +------+ + | Care Drapery Sewer Hand Name | Role | Phone | [...] | | lower third | Veterans | [facility] | | | | | of esophagus | [facility] | Rd | | | | | Esophagus | Road | [facility] [place] | | | | | Ca | [facility] [place] | [address] | | | | | Procedures | [address] | Phone: | | | | | Consult, | Phone: | [phone] | | | | | Sage Wilkins | [phone] | Fax: | | | | | | Fax: | [phone] | | | | | | [phone] | | +--------+--------+ + + + + Encounter Details +--------+ + + + + | Date | Type | Department | Care Team | Description | +--------+ + + + + | 01/22/ | Hospital | Radiation Oncology | | | | 2017 | Encounter | at [facility] [address] | | | | | | [place] | | | | | | [id number] [facility] | | | | | | HOSPITAL [place], | | | | | | [place] [address] | | | | | | [phone] | | | +--------+ + + + [...]
--- OUTSIDE RECORDS SUMMARY | ~2019-11-23 | XMS | Encounter Summary ---
Demographics + + + | Address | [address] | | | [place] [address] | + + + | Home Phone [...] Team Providers + +------+ + | Care Embossing Clerk Name | Role | Phone | + +------+ + | Christos Olivarez MD | PCP | | + +------+ + Encounter Details +--------+ + + + + | Date | Type | Department | Care Team | Description | +--------+ + + + + | 09/30/ | Package Pick Up | Hematology | Marie Liz, | Malignant neoplasm | | 2018 | | Oncology Study [address] | [address] | of esophagus, | | | | [address] | [address] | unspecified location | | | | Mailcode: [id number] | [place] [address] | [facility] (Primary Dx) | | | | [facility] | [phone] | | | | | and Monika, | | | | | | [facility] | | | | | | Floor [place], [place] | | | | | | [address] | | | | | | [phone] | | | +--------+ + + + [...]
--- OUTSIDE RECORDS SUMMARY | ~2019-11-23 | XMS | Encounter Summary ---
Demographics + + + | Address | [address] | | | [place] [address] | + + + | Home Phone [...] Team Providers + +------+ + | Care Draughtsman Name | Role | Phone | + [...] | | 2019 | | [facility] at [place] | ,PhD [address] | | | | | for Health & Healing | [address] [place], [place] | | | | | [address] | [address] | | | | | Mailcode: [place] | [phone] | | | | | for Health and | | | | | | Healing, [address] | | | | | | [place], [place] | | | | | | [address] | | | | | | [phone] | | | +--------+ + + + [...]
--- OUTSIDE RECORDS SUMMARY | ~2019-11-23 | XMS | Encounter Summary ---
Demographics + + + | Address | [address] | | | [place] [address] | + + + | Home Phone [...] Team Providers + +------+ + | Care Property Preservation Specialist Name | Role | Phone | [...] | [address] | [address] [facility] | | | | | lower third | Veterans | [facility] | | | | | of esophagus | [facility] | Rd | | | | | Esophagus | Road | [place], [place] | | | | | Ca | [facility] [place] | [address] | | | | | Procedures | [address] | Phone: | | | | | Consult, | Phone: | [phone] | | | | | Sage Wilkins | [phone] | Fax: | | | | | | Fax: | [phone] | | | | | | [phone] | | +--------+--------+ + + + + Encounter Details +--------+ + + + + | Date | Type | Department | Care Team | Description | +--------+ + + + + | 01/01/ | Hospital | Radiation Oncology | | | | 2018 | Encounter | at [facility] [address] | | | | | | [place] | | | | | | [id number] [facility] | | | | | | HOSPITAL [place], | | | | | | [place] [address] | | | | | | [phone] | | | +--------+ + + + [...]
--- OUTSIDE RECORDS SUMMARY | ~2019-11-23 | XMS | Encounter Summary ---
Demographics + + + | Address | [address] | | | [place] [address] | + + + | Home Phone [...] Providers + +------+ + | Care Information Lead Name | Role | Phone | + [...] | | | neoplasm of | ,PhD [address] | [address] | | | | | esophagus, | [address] | [address] | | | | | unspecified | Veterans | [address] | | | | | | [address] | [place], [place] | | | | | | [facility] | [address] Phone: | | | | | | [place] [address] | [phone] | | | | | | Phone: | Fax: | | | | | | [phone] | [phone] | | | | | | Fax: | | | | | | | [phone] | | +--------+--------+ + + + + Encounter Details +--------+---------+ + + + | Date | Type | Department | Care Team | Description | +--------+---------+ + + + | 07/31/ | Office | Hematology/Medical | Marie Liz, | Malignant neoplasm | | 2018 | Visit | Oncology at Center | [address] | of lower third of | | | | for Health & Healing | Road [address] | esophagus (HCC) | | | | [address] | [place] [address] | (Primary Dx) | | | | Mailcode: [place] | [phone] | | | | | for Health and | | | | | | Healing, [address] | | | | | | [place], [place] | | | | | | [address] | | | | | | [phone] | | | +--------+---------+ + + + [...] seen in clinic on 07/31/18 by the Folded Towel Machine Operator, Marie Liz, and me. Mr. Marimar lange was offered participation in the study entitled "[id number]: A Randomized, Multicenter, Vera ble Blind, Phase [...] PORTER RN, BSN, CCRP HEMATOLOGY/MEDICAL ONCOLOGY AT [facility] Jeffrey Roy, Marie - 07/31 2:00 PM [...] no response, score 3) - 07/31/2018 [facility] Medical oncology evaluation- offered enrollment on [employer] [...] pain attributed to esophageal spasm, never had W[place] or stent No date: Diverticulosis No date: GERD without esophagitis No date: Hernia, hiatal No date: Hyperlipidemia No date: LBBB (left bundle branch block) No date: Malignant neoplasm (HCC) Comment: stomach cancer No date: Sleep apnea Comment: no longer using CPAP since weight loss and not snoring any more Past Surgical History: 1961: APPENDECTOMY 1974: CHOLECYSTECTOMY No date: INCISIONAL HERNIA REPAIR Comment: at [facility] site repaired x 5 05/14/2018: Laparoscopic 3 field esophagectomy Comment: [facility] Dr Vicente and Dr Pal 12/13/2017: LAPAROSCOPIC [...] Take for a total of 90 days. hopgqzzqfgcu-lmcr-tdldtgba (CEROVITE) oral liquid 15 mL by feeding [...] and a close friend. They live in [facility] but close friend here. History Smoking [...] o their satisfaction. Marie Liz MD Clinical university registrar Medical Oncology and Hematology documented in this [...] Category: | | | | | | [id number] M Category: | | | | | | [id number] 8 Stage | | | | | | Grouping: [id number] | | | | | | Grade: GXAJCC T | | | | | | Category: [id number] | | | | | | [...]
[~2019-11-23 15:56] MED LIST changes: -ALTOPREV40 MG PO; +CYMBALTA20 MG PO; +FLOMAX0.4 MG PO; +LEXAPRO20 MG PO; +LIPITOR20 MG PO
--- OUTSIDE RECORDS SUMMARY | 2019-11-23 15:58 | XMS ---
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 E.Rafi VISIT COUNT (12 MO.) 1 NUIVA Clark TOTAL 1 NOTE: Visits indicate total known visits. ED/UCC VISIT TRACKING (12 MO.) 11/23/2019 15:57 NUVIA You OR TYPE: Emergency COMPLAINT: - BODY SPASMS INPATIENT VISIT TRACKING (12 MO.) No inpatient visits to display in this time frame [email or web address]
[2019-11-23] MEDS ORDERED: SYNTHROID25 MCG PO (16:09)
[2019-11-23] MEDS ORDERED: HYDROCODON-ACE1 EAC8 PO (16:09)
[2019-11-23] MEDS ORDERED: PROCHLORPERAZIN10 MG PO (16:10)
[2019-11-23] MEDS ORDERED: CYCLOBENZAPRINE10 MG PO (16:11)
[2019-11-23] MEDS ORDERED: CLONAZEPAM0.5 MG PO (18:49)
[2019-11-23] MEDS ORDERED: KEPPRA500 MG PO (18:49)
== END 2019-11-23 18:59 | disposition home or self-care (01) ==
LOC: ED 15:56
DX: G25.3 Myoclonus (principal); C15.9 Malignant neoplasm of esophagus, unspecified; I10 Essential (primary) hypertension; Z87.891 Personal history of nicotine dependence; Z88.0 Allergy status to penicillin; Z88.5 Allergy status to narcotic agent; Z79.899 Other long term (current) drug therapy
CPT/HCPCS: 70450; 80053; 83735; 85025; 96374; 99284-25; J2060